=== PATIENT | female | born 1960 | race Caucasian/White ===

== ENCOUNTER 2022-01-02 10:45 | Inpatient (IN) | payer MEDICARE, MEDICAID, SELFPAY ==
[2022-01-02] VITALS (7 sets, daily range): BP systolic 100–118; BP diastolic 40–80; PULSE 67–97; RESP 16–23; TEMP 36.5–37.9; O2SAT 89–97; BMI 28.5
--- NOTE | 2022-01-02 | ECG_ITS ---
Test Reason : general medical Blood Pressure : / mmHG Vent. Rate : 073 BPM Atrial Rate : 073 BPM P-R Int : 138 ms QRS Dur : 076 ms QT Int : 390 ms P-R-T Axes : 018 048 035 degrees QTc Int : 429 ms Normal sinus rhythm Low voltage QRS Borderline ECG No previous ECGs available Referred By: Swapna Rene Electronically Signed By:Carrillo Bui
--- NOTE | ~2022-01-02 | XR_ITS ---
EXAMINATION: XR CHEST CLINICAL INFORMATION: Shortness of breath COMPARISON: None TECHNIQUE: Portable upright AP view of the chest was obtained. FINDINGS: Patient is slightly rotated to the left. There is no pneumothorax, pleural reaction, airspace consolidation, or effusion. Heart size normal. Vascularity within normal. There is probable disc atelectasis left lateral base. No acute bony abnormality. XR/XR chest 1V IMPRESSION: Unremarkable examination.
[2022-01-02 11:20] LABS: Basophils Percent Auto 0.1 % (0-2); PLT CLUMP 1; SCAN SMEAR FLAG 1
[2022-01-02 11:21] LABS: Eosinophils Percent Auto 0.4 % (0-4); Hematocrit 33.5 % (37.0-47.0); Hemoglobin 10.4 g/dl (12.0-16.0); Imm Gran Abs Auto 0.35 X10*3/uL (0.00-0.03); Imm Gran Pct Auto 4.9 % (0.0-0.4); Lymphocytes Absolute Auto 1.4 X10*3/uL (1.2-4.9); Lymphocytes Percent Auto 19.8 % (20-40); MANUAL DIFF FLAG SCAN; Mean Corpuscular Hemoglobin 30.9 pg (27.0-33.0); Mean Corpuscular Volume 99.4 fL (80.0-98.0); Monocytes Absolute Auto 0.8 X10*3/uL (0.1-1.2); Monocytes Percent Auto 11.7 % (2-11); Neutrophils Absolute Auto 4.5 x10*3/uL (2.0-8.3); Neutrophils Percent Auto 63.1 % (45-73); Red Blood Count 3.37 X10*6/uL (4.20-5.50); Red Cell Distribution Width 15.1 % (11.0-16.0)
[2022-01-02 11:26] LABS: White Blood Count 7.1 X10*3/uL (4.8-10.8)
[2022-01-02] MEDS: 0.9 % Sodium Chloride 1,000 ML 999 ML IVCONT ×2 (11:28→11:53)
[2022-01-02 11:38] LABS: B Type Natriuretic Peptide 44 pg/mL (<100); Troponin-I High Sensitivity 3.5 ng/L (<3.5-17.0)
[2022-01-02 11:43] LABS: Venous Blood Gas Refer to POC result
[2022-01-02 11:44] LABS: VBG Base Excess -3.6 mmol/L; VBG HCO3 19 mmol/L (22-26); VBG pCO2 27 mmHg; VBG pH 7.44 (7.32-7.43); VBG pO2 71 mmHg
[2022-01-02 11:47] LABS: Platelet Count 90 X10*3/uL (160-400); SLIDE REVIEW VERIFIED
[2022-01-02 11:52] LABS: Lactic Acid 0.6 mmol/L (0.5-2.0)
--- NOTE | 2022-01-02 11:52 | ED_ITS ---
HPI - General Adult General Chief complaint: General Medical Stated complaint: +COVID, LETHARGIC, 92% 4LPM PER EMS Time Seen by Provider: 01/02/22 11:20 Source: EMS Mode of arrival: EMS Limitations: other (Severe intellectual disability, lethargic) History of Present Illness HPI narrative: Patient comes to the emergency room via EMS from [facility]. This morning, patient was found to be lethargic, hypoxic, she was started on 6 L of oxygen via nasal cannula. Patient tested positive for COVID-19 today. Patient has severe intellectual disability and is lethargic and cannot provide any history. Per EMS, they did not receive enough information from the staff, unclear what patient's baseline is, other than patient is lethargic Related Data Allergies Allergy/AdvReac Type Severity Reaction Status Date / Time Unable to Assess Allergy Verified 01/02/22 11:20 Review of Systems Review of Systems: More lethargic, hypoxic Yes Unobtainable due to mental condition PMFSH Past Medical History Medical History Chronic kidney disease, stage 3 COVID Hx of alf use of blood thinners Hypertension Intellectual disability Pulmonary embolism Schizoaffective disorder Social History Social History Advance Directives: No Advance Directives Information Provided: No Physical Exam ED Vital Signs: Vital Signs - 24 hr 01/02/22 11:07 01/02/22 11:45 01/02/22 12:13 Temperature 100.2 F 99.5 F Pulse Rate 81 76 87 Respiratory Rate 23 H 20 21 H Blood Pressure 104/49 L 106/41 L Pulse Oximetry 95 89 L 95 Oxygen Delivery Method Nasal Cannula Nasal Cannula Nasal Cannula Oxygen Flow Rate 3 3 BMI result Body Mass Index 28.5 Const Other: Appearance: Somnolent, lethargic, arousable to verbal stimuli Eyes: Pupils equal, round and reactive to light. Bilateral conjunctivitis ENT: Pharynx normal. Neck: Normal inspection. Neck supple. No lymph nodes noted. No crepitus CVS: Normal heart rate and rhythm. Pulses normal. Normal S1 and S2 Respiratory: No respiratory distress. Breath sounds normal. No Wheezing. No rales . Oxygen saturation drops to 89% on 3 L Abdomen: Soft and nontender. No rigidity. No distention. Skin: Skin warm and dry. Normal skin color. Normal skin turgor. Extremities: No lower extremity edema. No Lacerations. No Rash Neuro: Somnolent, patient unable to participate in cranial nerve assessment Psych: Somnolent Course Course Course Narrative: Patient has a chronic Randall catheter, the urine looks turbid. Initial temp erature 100.2 degrees. Patient giving 2 L IV fluids based on ideal weight of 60 kg, patient is obese. Also, patient was started on Zosyn to cover for respiratory and urinary infections. All of patient's labs are and imaging are pending Patient came in at 6 L of oxygen on nasal cannula saturating in the high 90s, we attempted weaning the patient down to 3 L, oxygen saturation dropped to 89%. Patient does have a urinary tract infection as expected. Medical Decision Making Lab Data Result diagrams: 01/02/22 11:12 01/02/22 11:36 Labs: Lab Results 01/02/22 01/02/22 01/02/22 Range/Units 11:05 11:12 11:12 WBC 7.1 (4.8-10.8) X10*3/uL RBC 3.37 L (4.20-5.50) X10*6/uL Hgb 10.4 L (12.0-16.0) g/dl Hct 33.5 L (37.0-47.0) % MCV 99.4 H (80.0-98.0) fL MCH 30.9 (27.0-33.0) pg MCHC 31.0 (31.0-35.0) g/dl RDW 15.1 (11.0-16.0) % Plt Count 90 L (160-400) X10*3/uL MPV 11.0 (9.4-12.3) fL Immature Gran % (Auto) 4.9 H (0.0-0.4) % Neut % (Auto) 63.1 (45-73) % Lymph % (Auto) 19.8 L (20-40) % [place] % (Auto) 11.7 H (2-11) % Eos % (Auto) 0.4 (0-4) % Baso % (Auto) 0.1 (0-2) % Lymph # (Auto) 1.4 (1.2-4.9) X10*3/uL [place] # (Auto) 0.8 (0.1-1.2) X10*3/uL Eos # (Auto) 0.0 (0.0-0.4) X10*3/uL Baso # (Auto) 0.0 (0.0-0.2) X10*3/uL Abs Immat Gran (auto) 0.35 H (0.00-0.03) X10*3/uL Absolute Neuts (auto) 4.5 (2.0-8.3) x10*3/uL Absolute Nucleated RBC 0.000 (0.0-0.012) X10*3/uL Nucleated RBC % (auto) 0.0 (0.0-0.2) /100WBC Smear Tech's Comments VERIFIED VBG pH (7.32-7.43) VBG pCO2 mmHg VBG pO2 mmHg VBG HCO3 (22-26) mmol/L VBG O2 Saturation % VBG Base Excess mmol/L Sodium (135-145) mmol/L Potassium (3.3-5.1) mmol/L Chloride (96-108) mmol/L Carbon Dioxide (22-29) mmol/L Anion Gap (12-20) BUN (9-16) mg/dL Creatinine (0.5-1.4) mg/dL Estim Creat Clear Calc Estimated GFR POC Glucose 90 (60-115) mg/dL Random Glucose (60-115) mg/dL Lactic Acid (0.5-2.0) mmol/L Calcium (8.4-10.2) mg/dL Troponin I High Sens 3.5 (<3.5-17.0) ng/L B-Natriuretic Peptide 44 (<100) pg/mL TSH (0.32-4.0) uIU/mL Urine Color Urine Appearance Urine pH (5.0-8.0) Ur Specific [place] (1.005-1.025) Urine Protein (NEG-TRACE) MG/DL Urine Glucose (UA) (NEG) MG/DL Urine Ketones (NEG) MG/DL Urine Blood (NEG) Urine Nitrite (NEG) Ur Leukocyte Esterase (NEG) Urine RBC (0) /HPF Urine WBC (0-4) /HPF Ur Squamous Epith Cells /LPF Triple Phos Crystals /LPF Urine Bacteria /LPF COVID-19 (PADMA) (Negative) COVID-19 Clin Com 01/02/22 01/02/22 01/02/22 Range/Units 11:36 11:36 11:36 WBC (4.8-10.8) X10*3/uL RBC (4.20-5.50) X10*6/uL Hgb (12.0-16.0) g/dl Hct (37.0-47.0) % MCV (80.0-98.0) fL MCH (27.0-33.0) pg MCHC (31.0-35.0) g/dl RDW (11.0-16.0) % Plt Count (160-400) X10*3/uL MPV (9.4-12.3) fL Immature Gran % (Auto) (0.0-0.4) % Neut % (Auto) (45-73) % Lymph % (Auto) (20-40) % [place] % (Auto) (2-11) % Eos % (Auto) (0-4) % Baso % (Auto) (0-2) % Lymph # (Auto) (1.2-4.9) X10*3/uL [place] # (Auto) (0.1-1.2) X10*3/uL Eos # (Auto) (0.0-0.4) X10*3/uL Baso # (Auto) (0.0-0.2) X10*3/uL Abs Immat Gran (auto) (0.00-0.03) X10*3/uL Absolute Neuts (auto) (2.0-8.3) x10*3/uL Absolute Nucleated RBC (0.0-0.012) X10*3/uL Nucleated RBC % (auto) (0.0-0.2) /100WBC Smear Tech's Comments VBG pH (7.32-7.43) VBG pCO2 mmHg VBG pO2 mmHg VBG HCO3 (22-26) mmol/L VBG O2 Saturation % VBG Base Excess mmol/L Sodium 140 (135-145) mmol/L Potassium 4.9 (3.3-5.1) mmol/L Chloride 103 (96-108) mmol/L Carbon Dioxide 28 (22-29) mmol/L Anion Gap 14 (12-20) BUN 19 H (9-16) mg/dL Creatinine 1.55 H (0.5-1.4) mg/dL Estim Creat Clear Calc 42.9 Estimated GFR 34 POC Glucose (60-115) mg/dL Random Glucose 96 (60-115) mg/dL Lactic Acid 0.6 (0.5-2.0) mmol/L Calcium 9.2 (8.4-10.2) mg/dL Troponin I High Sens (<3.5-17.0) ng/L B-Natriuretic Peptide (<100) pg/mL TSH 1.77 (0.32-4.0) uIU/mL Urine Color Urine Appearance Urine pH (5.0-8.0) Ur Specific [place] (1.005-1.025) Urine Protein (NEG-TRACE) MG/DL Urine Glucose (UA) (NEG) MG/DL Urine Ketones (NEG) MG/DL Urine Blood (NEG) Urine Nitrite (NEG) Ur Leukocyte Esterase (NEG) Urine RBC (0) /HPF Urine WBC (0-4) /HPF Ur Squamous Epith Cells /LPF Triple Phos Crystals /LPF Urine Bacteria /LPF COVID-19 (PADMA) Positive A (Negative) COVID-19 Clin Com See Note 01/02/22 01/02/22 Range/Units 11:39 12:08 WBC (4.8-10.8) X10*3/uL RBC (4.20-5.50) X10*6/uL Hgb (12.0-16.0) g/dl Hct (37.0-47.0) % MCV (80.0-98.0) fL MCH (27.0-33.0) pg MCHC (31.0-35.0) g/dl RDW (11.0-16.0) % Plt Count (160-400) X10*3/uL MPV (9.4-12.3) fL Immature Gran % (Auto) (0.0-0.4) % Neut % (Auto) (45-73) % Lymph % (Auto) (20-40) % [place] % (Auto) (2-11) % Eos % (Auto) (0-4) % Baso % (Auto) (0-2) % Lymph # (Auto) (1.2-4.9) X10*3/uL [place] # (Auto) (0.1-1.2) X10*3/uL Eos # (Auto) (0.0-0.4) X10*3/uL Baso # (Auto) (0.0-0.2) X10*3/uL Abs Immat Gran (auto) (0.00-0.03) X10*3/uL Absolute Neuts (auto) (2.0-8.3) x10*3/uL Absolute Nucleated RBC (0.0-0.012) X10*3/uL Nucleated RBC % (auto) (0.0-0.2) /100WBC Smear Tech's Comments VBG pH 7.44 H (7.32-7.43) VBG pCO2 27 mmHg VBG pO2 71 mmHg VBG HCO3 19 L (22-26) mmol/L VBG O2 Saturation 93.0 % VBG Base Excess -3.6 mmol/L Sodium (135-145) mmol/L Potassium (3.3-5.1) mmol/L Chloride (96-108) mmol/L Carbon Dioxide (22-29) mmol/L Anion Gap (12-20) BUN (9-16) mg/dL Creatinine (0.5-1.4) mg/dL Estim Creat Clear Calc Estimated GFR POC Glucose (60-115) mg/dL Random Glucose (60-115) mg/dL Lactic Acid (0.5-2.0) mmol/L Calcium (8.4-10.2) mg/dL Troponin I High Sens (<3.5-17.0) ng/L B-Natriuretic Peptide (<100) pg/mL TSH (0.32-4.0) uIU/mL Urine Color YELLOW Urine Appearance CLOUDY Urine pH 8.0 (5.0-8.0) Ur Specific [place] 1.015 (1.005-1.025) Urine Protein 2+ H (NEG-TRACE) MG/DL Urine Glucose (UA) NEG (NEG) MG/DL Urine Ketones NEG (NEG) MG/DL Urine Blood 3+ H (NEG) Urine Nitrite POS H (NEG) Ur Leukocyte Esterase 3+ H (NEG) Urine RBC 50-75 H (0) /HPF Urine WBC 50-75 H (0-4) /HPF Ur Squamous Epith Cells NONE /LPF Triple Phos Crystals TRACE /LPF Urine Bacteria 4+ /LPF COVID-19 (PADMA) (Negative) COVID-19 Clin Com Discharge Plan Discharge Clinical Impression: COVID, UTI (urinary tract infection), Encephalopathy Patient Disposition: Admitted As Inpatient
[2022-01-02 11:57] LABS: COVID-19 Test Positive (Negative); IDNOW Serial# 55D5AD1C
[2022-01-02 12:06] LABS: Anion Gap 14 (12-20); Blood Urea Nitrogen 19 mg/dL (9-16); Calcium 9.2 mg/dL (8.4-10.2); Carbon Dioxide 28 mmol/L (22-29); Chloride 103 mmol/L (96-108); Creatinine Clr Calc Pharmacy 42.9; Estimated Glomerular Filt Rate 34; Glucose Random 96 mg/dL (60-115); Potassium 4.9 mmol/L (3.3-5.1); Sodium 140 mmol/L (135-145)
[2022-01-02 12:18] LABS: Appearance Urine CLOUDY; Color Urine YELLOW; Glucose Urine UA NEG (NEG); Leukocyte Esterase Urine 3+ (NEG); Nitrite Urine POS (NEG); Specific Gravity - Urine 1.015 (1.005-1.025); UACC Culture Trigger YES; Urine Blood 3+ (NEG); Urine Ketones NEG (NEG); Urine Protein 2+ MG/DL (NEG-TRACE)
[2022-01-02 12:30] LABS: Bacteria Urine 4+ /LPF; RBC Urine 50-75 /HPF (0); Triple Phosphate Crystal Urine TRACE /LPF; WBC Urine 50-75 /HPF (0-4)
[2022-01-02 12:43] LABS: TSH reflex Free T4 1.77 uIU/mL (0.32-4.0)
[2022-01-02 13:00] LABS: Glucose, Whole Blood 90 mg/dL (60-115)
[2022-01-02] MEDS: levoFLOXacin/D5W 500 MG/100 ML PIGGYBACK 100 MG IV (13:10)
[2022-01-02] MEDS: Erythromycin Base 0.5% Oph Oin 1 GM TUBE 1 CM EYE-BOTH (13:11)
--- NOTE | 2022-01-02 14:05 | PHA.MEDREC ---
Pharmacy Consult ? Medication Reconciliation Pharmacy has completed the medication reconciliation. Received list from [facility]. Jo Ann Almeida, JannetteD
[2022-01-02 15:11] LABS: Alanine Aminotransferase 7 U/L (0-31); Albumin Level 3.6 g/dL (3.5-5.0); Alkaline Phosphatase 54 U/L (39-117); Aspartate Amino Transferase 18 U/L (5-31); Bilirubin Direct < 0.2 mg/dL (0.0-0.5); Bilirubin Total 0.2 mg/dL (0.0-1.0); C Reactive Protein 7.37 mg/dL (< or = 0.50); Lactate Dehydrogenase 235 U/L (122-220); Total Protein 6.5 g/dL (6.5-8.0)
[2022-01-02] MEDS: cefTRIAXone sodium 1 GM in 0.9 % Sodium Chloride 50 ML IV (15:28)
[2022-01-02] MEDS: QUEtiapine Fumarate 50 MG TABLET PO ×2 (15:28→22:27)
[2022-01-02] MEDS: dexAMETHasone sod phosphate 4 MG/ML VIAL 6 MG IVPUSH (15:28)
[2022-01-02 15:31] LABS: Ferritin 67 ng/mL (10-250)
[2022-01-02 15:33] LABS: Procalcitonin 0.05 ng/mL
--- NOTE | 2022-01-02 15:38 | PM.IMHP ---
History of Present Illness Date of Service: 01/02/22 Chief Complaint: hypoxia History obtained from the field operations manager at [facility], as the patient is unable to give a history due to her mental status. 61yo F with severe intellectual disability, schizoaffective disorder, CKD3 (SCr 1.57 (05/13/21), hypothyroidism, HLD, frequent UTIs, dysphagia, and history of PE currently anticoagulated on apixaban who developed cough and dyspnea yesterday and today became lethargic and was found to be hypoxic. She was placed on 6L O2 via NC and sent to the ED, where she tested positive for Covid-19. She had the primary Pfizer mRNA vaccine series in June 2020, followed by a booster on 10/27/21. Currently, there are 8 patients at [facility] with Covid-19 infection. She had a low-grade temperature elevation to 100.2 and was tachypneic with RR of 23. SaO2 was 89 on room air and she was placed on 2L O2 via NC. Platelet count was 90. Creatinine 1.55. CRP 7.37. She has nitrituria and pyuria. CXR no acute disease. 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 Hypertension Intellectual disability Pulmonary embolism Schizoaffective disorder Pertinent family history: unable to obtain due to patient's mental status Social History Advance Directives: No Advance Directives Information Provided: No Meds Allergies Allergy/AdvReac Type Severity Reaction Status Date / Time Unable to Assess Allergy Verified 01/02/22 11:20 Active Medications: Current Medications Apixaban (Apixaban 2.5 Mg Tablet) 2.5 mg PO BID [facility] Atorvastatin Calcium (Atorvastatin Calcium 10 Mg Tablet) 10 mg PO BEDTIME DEJUAN Dexamethasone Sodium Phosphate (Dexamethasone Sod Phosphate 4 Mg/Ml Vial) 6 mg IVPUSH DAILY [facility] Last Admin: 01/02/22 15:28 Dose: 6 mg Divalproex Sodium (Divalproex Sodium Sprinkles 125 Mg ) 1,000 mg PO BID [facility] Ceftriaxone Sodium 1 gm/ (Sodium Chloride) 50 mls @ 100 mls/hr IV Q24H [facility] Stop: 01/08/22 16:29 Last Admin: 01/02/22 15:28 Dose: 100 mls/hr Lactulose (Lactulose 20 Gm/30 Ml Solution) 20 gm PO BID [facility] Levothyroxine Sodium (Levothyroxine Sodium 100 Mcg Tablet) 100 mcg PO DAILY@0630 [facility] Mirtazapine (Mirtazapine 7.5 Mg Tablet) 7.5 mg PO BEDTIME [facility] Pharmacy Consult (Consult Rx Perform Med Rec) 1 each MISCELLANE ONCE PRN PRN Reason: Consult order Quetiapine Fumarate (Quetiapine Fumarate 50 Mg Tablet) 50 mg PO TID [facility] Last Admin: 01/02/22 15:28 Dose: 50 mg Trazodone HCl (Trazodone Hcl 100 Mg Tablet) 200 mg PO BID [facility] Home Medications Medication Instructions Recorded Confirmed Last Taken Type acetaminophen 500 mg tablet 1,000 mg PO TID 01/02/22 01/02/22 Unknown History apixaban 2.5 mg tablet (Eliquis) 2.5 mg PO BID 01/02/22 01/02/22 Unknown History atorvastatin 10 mg tablet 10 mg PO BEDTIME 01/02/22 01/02/22 Unknown History divalproex 125 mg capsule,delayed 1,000 mg PO BID 01/02/22 01/02/22 Unknown History release sprinkle lactulose 10 gram/15 mL oral 20 g PO BID 01/02/22 01/02/22 Unknown History solution (Enulose) levothyroxine 100 mcg capsule 100 mcg PO DAILY 01/02/22 01/02/22 Unknown History methenamine hippurate 1 gram tablet 1 g PO BID 01/02/22 01/02/22 Unknown History mirtazapine 7.5 mg tablet 7.5 mg PO BEDTIME 01/02/22 01/02/22 Unknown History quetiapine 50 mg tablet 50 mg PO TID 01/02/22 01/02/22 Unknown History trazodone 100 mg tablet 200 mg PO BID 01/02/22 01/02/22 Unknown History Physical Exam Vital Signs and Narrative: Vital Signs: Last Vital Signs Temp 97.7 F 01/02/22 14:56 Pulse 75 01/02/22 14:56 Resp 19 01/02/22 14:56 BP 101/68 01/02/22 14:56 Pulse Ox 92 01/02/22 14:56 O2 Del Method 01/02/22 14:56 O2 Flow Rate 3 01/02/22 12:13 Oxygen Flow Rate 4 01/02/22 11:07 BMI result Body Mass Index 28.5 Gen: short of breath, able to answer what her name is but otherwise speech is unintelligible HEENT: sclera anicteric, moist mucus membranes Neck: supple Lungs: clear to auscultation bilaterally Heart: regular rate and rhythm, no murmurs Abd: soft, non-tender, non-distended : no CVA tenderness Ext: no edema Skin: warm/well-perfused Neuro: alert, oriented to self only, moving all extremities Psych: impaired insight Results Labs CBC and Chem 7: 01/02/22 11:12 01/02/22 11:36 Labs: Laboratory Results - last 24 hr 01/02/22 01/02/22 01/02/22 11:05 11:12 11:12 MCV 99.4 H MCH 30.9 MCHC 31.0 RDW 15.1 Plt Count 90 L MPV 11.0 Immature Gran % (Auto) 4.9 H Neut % (Auto) 63.1 Lymph % (Auto) 19.8 L [place] % (Auto) 11.7 H Eos % (Auto) 0.4 Baso % (Auto) 0.1 Lymph # (Auto) 1.4 [place] # (Auto) 0.8 Eos # (Auto) 0.0 Baso # (Auto) 0.0 Abs Immat Gran (auto) 0.35 H Absolute Neuts (auto) 4.5 Absolute Nucleated RBC 0.000 Nucleated RBC % (auto) 0.0 Smear Tech's Comments VERIFIED VBG pH VBG pCO2 VBG pO2 VBG HCO3 VBG O2 Saturation VBG Base Excess Anion Gap Estim Creat Clear Calc Estimated GFR POC Glucose 90 Random Glucose Lactic Acid Calcium Ferritin Total Bilirubin Direct Bilirubin AST ALT Alkaline Phosphatase Lactate Dehydrogenase Troponin I High Sens 3.5 C-Reactive Protein B-Natriuretic Peptide 44 Total Protein Albumin Procalcitonin TSH Urine Color Urine Appearance Urine pH Ur Specific [place] Urine Protein Urine Glucose (UA) Urine Ketones Urine Blood Urine Nitrite Ur Leukocyte Esterase Urine RBC Urine WBC Ur Squamous Epith Cells Triple Phos Crystals Urine Bacteria COVID-19 (PADMA) COVID-19 Clin Com 01/02/22 01/02/22 01/02/22 11:36 11:36 11:36 MCV MCH MCHC RDW Plt Count MPV Immature Gran % (Auto) Neut % (Auto) Lymph % (Auto) [place] % (Auto) Eos % (Auto) Baso % (Auto) Lymph # (Auto) [place] # (Auto) Eos # (Auto) Baso # (Auto) Abs Immat Gran (auto) Absolute Neuts (auto) Absolute Nucleated RBC Nucleated RBC % (auto) Smear Tech's Comments VBG pH VBG pCO2 VBG pO2 VBG HCO3 VBG O2 Saturation VBG Base Excess Anion Gap 14 Estim Creat Clear Calc 42.9 Estimated GFR 34 POC Glucose Random Glucose 96 Lactic Acid 0.6 Calcium 9.2 Ferritin 67 Total Bilirubin 0.2 Direct Bilirubin < 0.2 AST 18 ALT 7 Alkaline Phosphatase 54 Lactate Dehydrogenase 235 H Troponin I High Sens C-Reactive Protein 7.37 H B-Natriuretic Peptide Total Protein 6.5 Albumin 3.6 Procalcitonin TSH 1.77 Urine Color Urine Appearance Urine pH Ur Specific [place] Urine Protein Urine Glucose (UA) Urine Ketones Urine Blood Urine Nitrite Ur Leukocyte Esterase Urine RBC Urine WBC Ur Squamous Epith Cells Triple Phos Crystals Urine Bacteria COVID-19 (PADMA) Positive A COVID-19 Clin Com See Note 01/02/22 01/02/22 01/02/22 11:36 11:39 12:08 MCV MCH MCHC RDW Plt Count MPV Immature Gran % (Auto) Neut % (Auto) Lymph % (Auto) [place] % (Auto) Eos % (Auto) Baso % (Auto) Lymph # (Auto) [place] # (Auto) Eos # (Auto) Baso # (Auto) Abs Immat Gran (auto) Absolute Neuts (auto) Absolute Nucleated RBC Nucleated RBC % (auto) Smear Tech's Comments VBG pH 7.44 H VBG pCO2 27 VBG pO2 71 VBG HCO3 19 L VBG O2 Saturation 93.0 VBG Base Excess -3.6 Anion Gap Estim Creat Clear Calc Estimated GFR POC Glucose Random Glucose Lactic Acid Calcium Ferritin Total Bilirubin Direct Bilirubin AST ALT Alkaline Phosphatase Lactate Dehydrogenase Troponin I High Sens C-Reactive Protein B-Natriuretic Peptide Total Protein Albumin Procalcitonin 0.05 TSH Urine Color YELLOW Urine Appearance CLOUDY Urine pH 8.0 Ur Specific [place] 1.015 Urine Protein 2+ H Urine Glucose (UA) NEG Urine Ketones NEG Urine Blood 3+ H Urine Nitrite POS H Ur Leukocyte Esterase 3+ H Urine RBC 50-75 H Urine WBC 50-75 H Ur Squamous Epith Cells NONE Triple Phos Crystals TRACE Urine Bacteria 4+ COVID-19 (PADMA) COVID-19 Clin Com Imaging Radiologist's Impressions: Impressions Chest X-Ray 01/02/22 11:52 IMPRESSION: Unremarkable examination. Assessment and Plan (1) UTI (urinary tract infection): Status: Acute (2) COVID: Status: Acute Plan 61yo F with severe intellectual disability, schizoaffective disorder, CKD3 (SCr 1.57 (05/13/21), hypothyroidism, HLD, frequent UTIs, dysphagia, and history of PE currently anticoagulated on apixaban presenting with 1 day of dyspnea and cough, lethargic and hypoxic this morning, found to have Covid-19 infection and UTI. # severe Covid-19 disease - admit to [facility] on isolation, give remdesivir x5d, give dexamethasone 6 mg/d x 10d, trend inflammatory markers, consult ID # acute hypoxic respiratory failure - supplemental O2 to wean as tolerated # UTI - ceftriaxone IV x7d, follow UCx # toxic/metabolic encephalopathy - due to hypoxia/Covid-19 + infection, treat as above CHRONIC CONDITIONS: # CKD3: SCr at baseline, avoid nephrotoxins # hx PE: continue apixaban # HLD: continue atorvastatin # schizoaffective: continue divalproex, mirtazapine, quetiapine, and trazodone # dysphagia: NDD1 [pureed] solids, thin liquids, 1:1 for all feeds, meds crushed in puree VTE prophylaxis: apixaban code status: full I anticipate that the patient will stay at least 2 midnights in hospital due to the above reasons. It is neither reasonable nor safe to care for them in a less acute setting. Quality Stroke Does the patient have a stroke diagnosis?: No VTE Prior VTE?: No VTE Risk Level:: Medical - moderate - high VTE Device Contraindication: N/A - Device Ordered VTE Drug Contraindication: N/A - Med Ordered
[2022-01-02 16:30] LABS: D Dimer High Sensitivity 168 NG/ML
[2022-01-02 16:40] LABS: Anion Gap 9 (12-20); Blood Urea Nitrogen 18 mg/dL (9-16); Calcium 8.7 mg/dL (8.4-10.2); Carbon Dioxide 30 mmol/L (22-29); Chloride 106 mmol/L (96-108); Creatinine Clr Calc Pharmacy 48.6; Estimated Glomerular Filt Rate 39; Glucose Random 87 mg/dL (60-115); Potassium 4.7 mmol/L (3.3-5.1); Sodium 140 mmol/L (135-145)
[2022-01-02] MEDS: Remdesivir 200 MG in 0.9 % Sodium Chloride 210 ML 105 MG IV (17:29)
[2022-01-02] MEDS: Mirtazapine 7.5 MG TABLET PO (22:27)
[2022-01-02] MEDS: Atorvastatin Calcium 10 MG TABLET PO (22:27)
[2022-01-02] MEDS: traZODone HCL 100 MG TABLET 200 MG PO (22:27)
[2022-01-02] MEDS: Apixaban 2.5 MG TABLET PO (22:27)
[2022-01-02] MEDS: Lactulose 20 GM/30 ML SOLUTION PO (22:28)
[2022-01-02] MEDS: Divalproex Sodium Sprinkles 125 MG CAP.DR.SPR 1000 MG PO (22:43)
[2022-01-03] VITALS (7 sets, daily range): BP systolic 93–165; BP diastolic 48–88; PULSE 60–80; RESP 16–21; TEMP 36.1–36.6; O2SAT 93–100
[2022-01-03] MEDS: 0.9 % Sodium Chloride Flush 3 ML SYRINGE IVFLUSH ×3 (03:25→16:55)
--- NOTE | 2022-01-03 04:21 | PC.NURSE ---
PATIENT WAS REPOSITION SEVERAL TIMES THROUGHOUT THE NIGHT ,PATIENT WAS AWAKE ALL NIGHT TALKING TO SELF
[2022-01-03] MEDS: Levothyroxine Sodium 100 MCG TABLET PO (06:50)
[2022-01-03 07:12] LABS: Glucose, Whole Blood 77 mg/dL (60-115)
[2022-01-03] MEDS: Lactulose 20 GM/30 ML SOLUTION PO ×2 (07:58→21:01)
[2022-01-03] MEDS: dexAMETHasone sod phosphate 4 MG/ML VIAL 6 MG IVPUSH (07:59)
[2022-01-03] MEDS: traZODone HCL 100 MG TABLET 200 MG PO ×2 (07:59→20:56)
[2022-01-03] MEDS: QUEtiapine Fumarate 50 MG TABLET PO ×3 (07:59→20:57)
[2022-01-03] MEDS: Apixaban 2.5 MG TABLET PO ×2 (07:59→20:57)
[2022-01-03] MEDS: Divalproex Sodium Sprinkles 125 MG CAP.DR.SPR 1000 MG PO ×2 (07:59→20:58)
--- NOTE | 2022-01-03 10:35 | PC.NURSE ---
call to phlebotomy re: labs due from 0600 on 01/03
--- NOTE | 2022-01-03 13:29 | P.CDIC_ITS ---
CDI Concurrent Query Documentation Clarification: PHYSICIAN'S DOCUMENTATION REQUEST Date of Query: 01/03/22 1325 Patient Name: Terri Vaughn Admit Date: 01/02/22 Dear Doctor, A review of the medical record indicates additional documentation may be needed. Please review below and update the documentation accordingly. Clinical Indicators: Documentation includes the conditions of chronic cantu catheter and UTI. Additional clinical indicators in the record include: Risk Factors/Clinical Indicators/Treatments Per MD progress note 01/02/22: Patient has a chronic Cantu catheter, the urine looks turbid.? Per H&P 01/02/22: UTI IV Ceftriaxone Please clarify the relationship between these conditions: * Yes, UTI is related to / associated with / due to Cantu catheter * No, UTI is not related to / associated with / due to Cantu catheter * Other * Unable to determine Use of terms such as suspected, likely, concern for, or probable (associated with a specific diagnosis that is being evaluated, monitored, or treated as if it exists) are acceptable and can be coded in the inpatient setting, when documented at the time of discharge. Thank you, Daisy Duenas RN Extension: [phone] Please use your independent medical judgment in providing your response. THIS QUERY IS PART OF THE PERMANENT MEDICAL RECORD Provider Response: Other Other Diagnosis: cath-assoc uti
--- NOTE | 2022-01-03 13:35 | MHC.CM.PN ---
pt from [facility] is on a bed hold phone call made to adeola rivera [phone]/message left
--- NOTE | 2022-01-03 13:48 | HO.PM.IMPN ---
Subjective Subjective Date of Service: 01/03/22 Interval History: coughing still on 2L O2 unable to obtain ROS due to mental status Review of Systems Review of Systems: Yes Unobtainable due to mental status Physical Exam Vital Signs: Vital Signs: Last Vital Signs Temp 97.8 F 01/03/22 01:02 Pulse 78 01/03/22 08:05 Resp 18 01/03/22 08:05 BP 108/48 L 01/03/22 08:05 Pulse Ox 98 01/03/22 08:05 O2 Del Method 01/03/22 08:05 O2 Flow Rate 2 01/03/22 08:05 Oxygen Flow Rate 4 01/02/22 11:07 BMI result Body Mass Index 28.5 Gen: mod resp distress HEENT: sclera anicteric, moist mucus membranes Neck: supple Lungs: clear to auscultation bilaterally Heart: regular rate and rhythm, no murmurs Abd: soft, non-tender, non-distended : no CVA tenderness, Randall with turbid urine Ext: no edema Skin: warm/well-perfused Neuro: alert, oriented to self only, moving all extremities Psych: impaired insight Objective Data Active Medications Acetaminophen (Acetaminophen 325 Mg Tablet) 650 mg PO Q6H PRN PRN Reason: Pain, Mild (Pain Scale 1-3) Apixaban (Apixaban 2.5 Mg Tablet) 2.5 mg PO BID [facility] Last Admin: 01/03/22 07:59 Dose: 2.5 mg Documented By: DAYNA Atorvastatin Calcium (Atorvastatin Calcium 10 Mg Tablet) 10 mg PO BEDTIME [facility] Last Admin: 01/02/22 22:27 Dose: 10 mg Documented By: CELY Dexamethasone Sodium Phosphate (Dexamethasone Sod Phosphate 4 Mg/Ml Vial) 6 mg IVPUSH DAILY [facility] Last Admin: 01/03/22 07:59 Dose: 6 mg Documented By: DAYNA Divalproex Sodium (Divalproex Sodium Sprinkles 125 Mg ) 1,000 mg PO BID [facility] Last Admin: 01/03/22 07:59 Dose: 1,000 mg Documented By: DAYNA Ceftriaxone Sodium 1 gm/ (Sodium Chloride) 50 mls @ 100 mls/hr IV Q24H [facility] Stop: 01/08/22 16:29 Last Infusion: 01/02/22 15:58 Dose: 0 mls/hr Documented By: BRYN Remdesivir 100 mg/ Sodium (Chloride) 230 mls @ 115 mls/hr IV Q24H [facility] Stop: 01/06/22 18:59 Lactulose (Lactulose 20 Gm/30 Ml Solution) 20 gm PO BID [facility] Last Admin: 01/03/22 07:58 Dose: 20 gm Documented By: DAYNA Levothyroxine Sodium (Levothyroxine Sodium 100 Mcg Tablet) 100 mcg PO DAILY@0630 [facility] Last Admin: 01/03/22 06:50 Dose: 100 mcg Documented By: CELY Mirtazapine (Mirtazapine 7.5 Mg Tablet) 7.5 mg PO BEDTIME [facility] Last Admin: 01/02/22 22:27 Dose: 7.5 mg Documented By: CELY Ondansetron HCl (Ondansetron Hcl 4 Mg/2 Ml Vial) 4 mg IVPUSH Q8H PRN PRN Reason: Nausea and Vomiting Pharmacy Consult (Consult Rx Perform Med Rec) 1 each MISCELLANE ONCE PRN PRN Reason: Consult order Quetiapine Fumarate (Quetiapine Fumarate 50 Mg Tablet) 50 mg PO TID [facility] Last Admin: 01/03/22 07:59 Dose: 50 mg Documented By: DAYNA Sodium Chloride (0.9 % Sodium Chloride Flush 3 Ml Syringe) 3 ml IVFLUSH QSHIFT [facility] Last Admin: 01/03/22 07:58 Dose: 3 ml Documented By: DAYNA Trazodone HCl (Trazodone Hcl 100 Mg Tablet) 200 mg PO BID [facility] Last Admin: 01/03/22 07:59 Dose: 200 mg Documented By: DAYNA Labs CBC & Chem 7: 01/02/22 11:12 01/02/22 16:01 Labs: Laboratory Results - last 24 hr 01/02/22 01/02/22 01/02/22 11:36 11:36 16:01 D-Dimer High Sensitivty Anion Gap 9 L Estim Creat Clear Calc 48.6 Estimated GFR 39 POC Glucose Random Glucose 87 Calcium 8.7 Ferritin 67 Total Bilirubin 0.2 Direct Bilirubin < 0.2 AST 18 ALT 7 Alkaline Phosphatase 54 Lactate Dehydrogenase 235 H C-Reactive Protein 7.37 H Total Protein 6.5 Albumin 3.6 Procalcitonin 0.05 01/02/22 01/03/22 16:01 07:08 D-Dimer High Sensitivty 168 Anion Gap Estim Creat Clear Calc Estimated GFR POC Glucose 77 Random Glucose Calcium Ferritin Total Bilirubin Direct Bilirubin AST ALT Alkaline Phosphatase Lactate Dehydrogenase C-Reactive Protein Total Protein Albumin Procalcitonin Microbiology Microbiology Results: Microbiology 01/02/22 Unknown Urine Culture - Final Urine Catheterized - Straight Catheter Assessment and Plan (1) UTI (urinary tract infection): Status: Acute (2) Encephalopathy: Status: Acute (3) COVID: Status: Acute Plan hospital d#2 61yo F with severe intellectual disability, schizoaffective disorder, CKD3 (SCr 1.57 (05/13/21), hypothyroidism, HLD, frequent UTIs, dysphagia, and history of PE currently anticoagulated on apixaban presenting with 1 day of dyspnea and cough, lethargic and hypoxic this morning, found to have Covid-19 infection and UTI. # severe Covid-19 disease - isolation, remdesivir d#2, dexamethasone d#07/28, trend inflammatory markers, consult ID # acute hypoxic respiratory failure - supplemental O2 to wean as tolerated # UTI, catheter-assoc - ceftriaxone d#07/25, follow UCx # toxic/metabolic encephalopathy - due to hypoxia/Covid-19 + infection, treat as above CHRONIC CONDITIONS: # CKD3: SCr at baseline, avoid nephrotoxins # hx PE: continue apixaban # HLD: continue atorvastatin # schizoaffective: continue divalproex, mirtazapine, quetiapine, and trazodone # dysphagia: NDD1 [pureed] solids, thin liquids, 1:1 for all feeds, meds crushed in puree # VTE prophylaxis: apixaban In my clinical judgment, the patient requires continued hospitalization for the following reasons: hypoxia Quality Stroke Does the patient have a stroke diagnosis?: No VTE Prior VTE?: No VTE Risk Level:: Medical - moderate - high VTE Device Contraindication: N/A - Device Ordered VTE Drug Contraindication: N/A - Med Ordered
--- NOTE | 2022-01-03 14:24 | PC.NURSE ---
pt ate entire lunch with pct. pt was cooperative.
--- NOTE | 2022-01-03 15:31 | W.PM.IDCN ---
History of Present Illness Data of Consult Service Date: 01/03/22 Requesting physician: Isidra Gee Primary Care Provider: Ondina Sewell MD HPI Reason for consult: sepsis,COVID She presents from [facility] with hypoxia to 92 and chills. 8 residents have COVID. She has received two primary series and a booster this spring. Review of Systems Review of Systems: Yes Unobtainable due to mental status PMFSH Past Medical History Medical History Chronic kidney disease, stage 3 COVID Hx of [facility] use of blood thinners Hypertension Intellectual disability Pulmonary embolism Schizoaffective disorder Family History Family history: reviewed and not pertinent Social History Social History Advance Directives: No Advance Directives Information Provided: No service: No Meds Allergies Allergy/AdvReac Type Severity Reaction Status Date / Time Unable to Assess Allergy Verified 01/02/22 11:20 Active Medications: Current Medications Acetaminophen (Acetaminophen 325 Mg Tablet) 650 mg PO Q6H PRN PRN Reason: Pain, Mild (Pain Scale 1-3) Apixaban (Apixaban 2.5 Mg Tablet) 2.5 mg PO BID [facility] Last Admin: 01/03/22 07:59 Dose: 2.5 mg Atorvastatin Calcium (Atorvastatin Calcium 10 Mg Tablet) 10 mg PO BEDTIME [facility] Last Admin: 01/02/22 22:27 Dose: 10 mg Dexamethasone Sodium Phosphate (Dexamethasone Sod Phosphate 4 Mg/Ml Vial) 6 mg IVPUSH DAILY [facility] Last Admin: 01/03/22 07:59 Dose: 6 mg Divalproex Sodium (Divalproex Sodium Sprinkles 125 Mg ) 1,000 mg PO BID [facility] Last Admin: 01/03/22 07:59 Dose: 1,000 mg Ceftriaxone Sodium 1 gm/ (Sodium Chloride) 50 mls @ 100 mls/hr IV Q24H [facility] Stop: 01/08/22 16:29 Last Infusion: 01/02/22 15:58 Dose: Infused Remdesivir 100 mg/ Sodium (Chloride) 230 mls @ 115 mls/hr IV Q24H [facility] Stop: 01/06/22 18:59 Lactulose (Lactulose 20 Gm/30 Ml Solution) 20 gm PO BID [facility] Last Admin: 01/03/22 07:58 Dose: 20 gm Levothyroxine Sodium (Levothyroxine Sodium 100 Mcg Tablet) 100 mcg PO DAILY@0630 [facility] Last Admin: 01/03/22 06:50 Dose: 100 mcg Mirtazapine (Mirtazapine 7.5 Mg Tablet) 7.5 mg PO BEDTIME [facility] Last Admin: 01/02/22 22:27 Dose: 7.5 mg Ondansetron HCl (Ondansetron Hcl 4 Mg/2 Ml Vial) 4 mg IVPUSH Q8H PRN PRN Reason: Nausea and Vomiting Pharmacy Consult (Consult Rx Perform Med Rec) 1 each MISCELLANE ONCE PRN PRN Reason: Consult order Quetiapine Fumarate (Quetiapine Fumarate 50 Mg Tablet) 50 mg PO TID [facility] Last Admin: 01/03/22 07:59 Dose: 50 mg Sodium Chloride (0.9 % Sodium Chloride Flush 3 Ml Syringe) 3 ml IVFLUSH QSHIFT [facility] Last Admin: 01/03/22 07:58 Dose: 3 ml Trazodone HCl (Trazodone Hcl 100 Mg Tablet) 200 mg PO BID [facility] Last Admin: 01/03/22 07:59 Dose: 200 mg Home Medications Medication Instructions Recorded Confirmed Last Taken Type acetaminophen 500 mg tablet 1,000 mg PO TID 01/02/22 01/02/22 Unknown History apixaban 2.5 mg tablet (Eliquis) 2.5 mg PO BID 01/02/22 01/02/22 Unknown History atorvastatin 10 mg tablet 10 mg PO BEDTIME 01/02/22 01/02/22 Unknown History divalproex 125 mg capsule,delayed 1,000 mg PO BID 01/02/22 01/02/22 Unknown History release sprinkle lactulose 10 gram/15 mL oral 20 g PO BID 01/02/22 01/02/22 Unknown History solution (Enulose) levothyroxine 100 mcg capsule 100 mcg PO DAILY 01/02/22 01/02/22 Unknown History methenamine hippurate 1 gram tablet 1 g PO BID 01/02/22 01/02/22 Unknown History mirtazapine 7.5 mg tablet 7.5 mg PO BEDTIME 01/02/22 01/02/22 Unknown History quetiapine 50 mg tablet 50 mg PO TID 01/02/22 01/02/22 Unknown History trazodone 100 mg tablet 200 mg PO BID 01/02/22 01/02/22 Unknown History Physical Exam Vital Signs: Vital Signs: Last Vital Signs Temp 97.8 F 01/03/22 01:02 Pulse 78 01/03/22 08:05 Resp 18 01/03/22 08:05 BP 108/48 L 01/03/22 08:05 Pulse Ox 98 01/03/22 08:05 O2 Del Method 01/03/22 08:05 O2 Flow Rate 2 01/03/22 08:05 Oxygen Flow Rate 4 01/02/22 11:07 BMI result Body Mass Index 28.5 Const: General: cooperative HEENT: Head: Yes normal to inspection Resp: Effort & Inspection: normal respiratory effort Cardio: Rate: regular rate Rhythm: regular rhythm : General: Yes no CVA tenderness Back/Spine/Pelvis: Back: no CVA tenderness Skin: General skin exam: no rashes or lesions noted Results Labs CBC & Chem 7: 01/02/22 11:12 01/02/22 16:01 Labs: BMP 01/02/22 16:01 Sodium 140 Potassium 4.7 Chloride 106 Carbon Dioxide 30 H BUN 18 H Creatinine 1.37 Calcium 8.7 Microbiology Microbiology Results: Microbiology 01/02/22 13:06 Blood - Venous Blood Culture - Preliminary No growth after 24 hours. 01/02/22 11:38 Blood - Venous Blood Culture - Preliminary No growth after 24 hours. 01/02/22 Unknown Urine Catheterized - Straight Catheter Urine Culture - Final Assessment and Plan (1) COVID: Status: Acute symptoms likely due to COVID unclear since cant give history if there is active UTI,culture blood pending. (2) Encephalopathy: Status: Acute Plan Dexamethasone and Remdesivir only until oxygen saturation is over 93% as stop when this occurs. May give Ceftriaxone but pending urine results Oxygen only if saturation under 94% on room air.
[2022-01-03 15:47] LABS: Anion Gap 15 (12-20); Blood Urea Nitrogen 26 mg/dL (9-16); Calcium 9.5 mg/dL (8.4-10.2); Carbon Dioxide 27 mmol/L (22-29); Chloride 104 mmol/L (96-108); Creatinine Clr Calc Pharmacy 50.1; Estimated Glomerular Filt Rate 40; Glucose Random 138 mg/dL (60-115); Potassium 4.8 mmol/L (3.3-5.1); Sodium 141 mmol/L (135-145)
[2022-01-03] MEDS: cefTRIAXone sodium 1 GM in 0.9 % Sodium Chloride 50 ML IV (16:46)
[2022-01-03] MEDS: Remdesivir 100 MG in 0.9 % Sodium Chloride 230 ML 115 MG IV (16:55)
--- NOTE | 2022-01-03 17:39 | PC.NURSE ---
Assumed patient care at 3pm. Alert, VSS, afebrile. No acute resp. distress noted. IV ceftriaxone and Remdesivir given as ordered, no adverse reaction noted.
--- NOTE | 2022-01-03 18:33 | PC.NURSE ---
pt ate her entire dinner tray.
--- NOTE | 2022-01-03 18:59 | PC.NURSE ---
Addendum entered by Dilma Garcia 01/04/22 06:50: Report given to ZOE Boggs Original Note: report received from ZOE Castillo
[2022-01-03] MEDS: Mirtazapine 7.5 MG TABLET PO (20:56)
[2022-01-03] MEDS: Atorvastatin Calcium 10 MG TABLET PO (20:56)
[2022-01-04] VITALS (7 sets, daily range): BP systolic 93–135; BP diastolic 37–105; PULSE 59–86; RESP 14–21; TEMP 35.6–36.9; O2SAT 89–97
[2022-01-04] MEDS: Levothyroxine Sodium 100 MCG TABLET PO (06:29)
[2022-01-04 07:10] LABS: Hematocrit 31.9 % (37.0-47.0); Hemoglobin 9.6 g/dl (12.0-16.0); Mean Corpuscular HGB Conc 30.1 g/dl (31.0-35.0); Mean Corpuscular Hemoglobin 30.4 pg (27.0-33.0); Mean Corpuscular Volume 100.9 fL (80.0-98.0); Mean Platelet Volume 10.8 fL (9.4-12.3); Red Blood Count 3.16 X10*6/uL (4.20-5.50); Red Cell Distribution Width 14.8 % (11.0-16.0); White Blood Count 6.8 X10*3/uL (4.8-10.8)
[2022-01-04 07:22] LABS: Platelet Count 84 X10*3/uL (160-400)
[2022-01-04 07:36] LABS: Alanine Aminotransferase < 6 U/L (0-31); Albumin Level 3.4 g/dL (3.5-5.0); Alkaline Phosphatase 46 U/L (39-117); Anion Gap 13 (12-20); Aspartate Amino Transferase 14 U/L (5-31); Bilirubin Total < 0.2 mg/dL (0.0-1.0); Blood Urea Nitrogen 30 mg/dL (9-16); C Reactive Protein 3.14 mg/dL (< or = 0.50); Calcium 9.6 mg/dL (8.4-10.2); Carbon Dioxide 30 mmol/L (22-29); Chloride 106 mmol/L (96-108); Creatinine Clr Calc Pharmacy 65.9; Estimated Glomerular Filt Rate 56; Glucose Random 98 mg/dL (60-115); Potassium 4.6 mmol/L (3.3-5.1); Sodium 144 mmol/L (135-145)
[2022-01-04] MEDS: Lactulose 20 GM/30 ML SOLUTION PO ×2 (07:56→21:23)
[2022-01-04] MEDS: traZODone HCL 100 MG TABLET 200 MG PO ×2 (07:56→21:23)
[2022-01-04] MEDS: QUEtiapine Fumarate 50 MG TABLET PO ×3 (07:57→21:23)
[2022-01-04] MEDS: Divalproex Sodium Sprinkles 125 MG CAP.DR.SPR 1000 MG PO ×2 (07:57→21:23)
[2022-01-04] MEDS: dexAMETHasone sod phosphate 4 MG/ML VIAL 6 MG IVPUSH (07:57)
[2022-01-04] MEDS: Apixaban 2.5 MG TABLET PO ×2 (07:57→21:23)
--- NOTE | 2022-01-04 08:58 | PC.NURSE ---
took all of morning hs meds crushed w apple sauce w/o issue. pt cooperative w feed at that time, foster.
--- NOTE | 2022-01-04 13:00 | P.PNIM_ITS ---
Subjective Subjective Date of Service: 01/04/22 Interval History: cc: sob interval history:no complaints Cardiovascular Cardiovascular: Reports no additional cardiovascular complaints Gastrointestinal Gastrointestinal: Reports no additional gastrointestinal complaints Physical Exam Vital Signs: Vital Signs: Last Vital Signs Temp 96.8 F 01/04/22 09:47 Pulse 64 01/04/22 10:39 Resp 20 01/04/22 10:39 BP 135/103 H 01/04/22 10:39 Pulse Ox 89 L 01/04/22 10:39 O2 Del Method 01/04/22 10:39 O2 Flow Rate 2 01/04/22 09:47 Oxygen Flow Rate 4 01/02/22 11:07 BMI result Body Mass Index 28.5 Const: General: cooperative HEENT: Head: Yes normal to inspection Resp: Effort & Inspection: normal respiratory effort Cardio: Rate: regular rate Rhythm: regular rhythm : General: Yes no CVA tenderness Back/Spine/Pelvis: Back: no CVA tenderness Skin: General skin exam: no rashes or lesions noted Objective Data Active Medications Acetaminophen (Acetaminophen 325 Mg Tablet) 650 mg PO Q6H PRN PRN Reason: Pain, Mild (Pain Scale 1-3) Apixaban (Apixaban 2.5 Mg Tablet) 2.5 mg PO BID [facility] Last Admin: 01/04/22 07:57 Dose: 2.5 mg Documented By: BRIAN Atorvastatin Calcium (Atorvastatin Calcium 10 Mg Tablet) 10 mg PO BEDTIME [facility] Last Admin: 01/03/22 20:56 Dose: 10 mg Documented By: KRISS Dexamethasone Sodium Phosphate (Dexamethasone Sod Phosphate 4 Mg/Ml Vial) 6 mg IVPUSH DAILY [facility] Last Admin: 01/04/22 07:57 Dose: 6 mg Documented By: BRIAN Comments: Divalproex Sodium (Divalproex Sodium Sprinkles 125 Mg ) 1,000 mg PO BID [facility] Last Admin: 01/04/22 07:57 Dose: 1,000 mg Documented By: BRIAN Ceftriaxone Sodium 1 gm/ (Sodium Chloride) 50 mls @ 100 mls/hr IV Q24H [facility] Stop: 01/08/22 16:29 Last Infusion: 01/03/22 17:39 Dose: 0 mls/hr Documented By: PEPE Remdesivir 100 mg/ Sodium (Chloride) 230 mls @ 115 mls/hr IV Q24H [facility] Stop: 01/06/22 18:59 Last Infusion: 01/03/22 19:15 Dose: 0 mls/hr Documented By: ARELY-ANICL Lactulose (Lactulose 20 Gm/30 Ml Solution) 20 gm PO BID [facility] Last Admin: 01/04/22 07:56 Dose: 20 gm Documented By: BRIAN Levothyroxine Sodium (Levothyroxine Sodium 100 Mcg Tablet) 100 mcg PO DAILY@0630 [facility] Last Admin: 01/04/22 06:29 Dose: 100 mcg Documented By: ARELY-NICICL Mirtazapine (Mirtazapine 7.5 Mg Tablet) 7.5 mg PO BEDTIME [facility] Last Admin: 01/03/22 20:56 Dose: 7.5 mg Documented By: ARELY-NICICL Ondansetron HCl (Ondansetron Hcl 4 Mg/2 Ml Vial) 4 mg IVPUSH Q8H PRN PRN Reason: Nausea and Vomiting Pharmacy Consult (Consult Rx Perform Med Rec) 1 each MISCELLANE ONCE PRN PRN Reason: Consult order Quetiapine Fumarate (Quetiapine Fumarate 50 Mg Tablet) 50 mg PO TID [facility] Last Admin: 01/04/22 07:57 Dose: 50 mg Documented By: BRIAN Sodium Chloride (0.9 % Sodium Chloride Flush 3 Ml Syringe) 3 ml IVFLUSH QSHIFT [facility] Last Admin: 01/04/22 07:01 Dose: Not Given Documented By: BRIAN Non-Admin Reason: Med Not Available Trazodone HCl (Trazodone Hcl 100 Mg Tablet) 200 mg PO BID [facility] Last Admin: 01/04/22 07:56 Dose: 200 mg Documented By: BRIAN Labs CBC & Chem 7: 01/04/22 06:58 01/04/22 06:58 Labs: Laboratory Results - last 24 hr 01/03/22 01/04/22 01/04/22 15:05 06:58 06:58 MCV 100.9 H MCH 30.4 MCHC 30.1 L RDW 14.8 Plt Count 84 L MPV 10.8 Absolute Nucleated RBC 0.000 Nucleated RBC % (auto) 0.0 Anion Gap 15 13 Estim Creat Clear Calc 50.1 65.9 Estimated GFR 40 56 Random Glucose 138 H 98 Calcium 9.5 D 9.6 Total Bilirubin < 0.2 AST 14 ALT < 6 Alkaline Phosphatase 46 C-Reactive Protein 3.14 H Total Protein 6.0 L Albumin 3.4 L Microbiology Microbiology Results: Microbiology 01/02/22 13:06 Blood Culture - Preliminary Blood - Venous No growth after 24 hours. 01/02/22 11:38 Blood Culture - Preliminary Blood - Venous No growth after 24 hours. 01/02/22 Unknown Urine Culture - Final Urine Catheterized - Straight Catheter Assessment and Plan (1) UTI (urinary tract infection): Status: Acute (2) Encephalopathy: Status: Acute (3) COVID: Status: Acute Plan hospital d#3 61yo F with severe intellectual disability, schizoaffective disorder, CKD3 (SCr 1.57 (05/13/21), hypothyroidism, HLD, frequent UTIs, dysphagia, and history of PE currently anticoagulated on apixaban presenting with 1 day of dyspnea and cough, lethargic and hypoxic this morning, found to have Covid-19 infection and UTI. acute hypoxic respiratory failure due to severe Covid-19 disease - isolation, remdesivir d#3, dexamethasone d#3, - supplemental O2 to wean as tolerated 89% on room air, 96% on 2L UTI, catheter-assoc - ceftriaxone d#08/20, urine culture negative toxic/metabolic encephalopathy - due to hypoxia/Covid-19 + infection, treat as above CHRONIC CONDITIONS: # CKD3: SCr at baseline, avoid nephrotoxins # hx PE: continue apixaban # HLD: continue atorvastatin # schizoaffective: continue divalproex, mirtazapine, quetiapine, and trazodone # dysphagia: NDD1 [pureed] solids, thin liquids, 1:1 for all feeds, meds crushed in puree # VTE prophylaxis: apixaban In my clinical judgment, the patient requires continued hospitalization for the following reasons: hypoxia Quality Stroke Does the patient have a stroke diagnosis?: No VTE Prior VTE?: No VTE Risk Level:: Medical - moderate - high VTE Device Contraindication: N/A - Device Ordered VTE Drug Contraindication: N/A - Med Ordered
[2022-01-04] MEDS: cefTRIAXone sodium 1 GM in 0.9 % Sodium Chloride 50 ML IV (15:35)
[2022-01-04] MEDS: Remdesivir 100 MG in 0.9 % Sodium Chloride 230 ML 115 MG IV (18:34)
--- NOTE | 2022-01-04 18:40 | PC.NURSE ---
PATIENT WAS FED BY THIS PCT ,PATIENT ATE 100 % OF SUPPER
--- NOTE | 2022-01-04 20:27 | PC.NURSE ---
Addendum entered by Dilma Garcia 01/05/22 07:01: report given to ZOE Diego Original Note: Report received from ZOE Boggs. pt is alert and oriented. resting in bed. no signs of acute distress notice
[2022-01-04] MEDS: Atorvastatin Calcium 10 MG TABLET PO (21:23)
[2022-01-04] MEDS: Mirtazapine 7.5 MG TABLET PO (21:23)
--- NOTE | 2022-01-04 21:24 | PC.NURSE ---
PATIENT WAS INC OF LARGE BOWEL MOVEMENT ,BED BATH GIVEN HAIR COMB ,LOTION APPLY TO SKIN .
[2022-01-05] VITALS: BP 119/60; PULSE 64; RESP 16; TEMP 36.6; O2SAT 96
[2022-01-05 04:00] VITALS: BP 105/61; PULSE 60; RESP 16; TEMP 36.6; O2SAT 97
[2022-01-05 05:49] VITALS: BP 95/58; PULSE 59; RESP 16; TEMP 36.6; O2SAT 97
--- NOTE | 2022-01-05 06:01 | PC.NURSE ---
patient got reposition throughout the night .
[2022-01-05 06:08] LABS: Hematocrit 30.8 % (37.0-47.0); Hemoglobin 9.4 g/dl (12.0-16.0); Mean Corpuscular HGB Conc 30.5 g/dl (31.0-35.0); Mean Corpuscular Hemoglobin 30.6 pg (27.0-33.0); Mean Corpuscular Volume 100.3 fL (80.0-98.0); Mean Platelet Volume 11.1 fL (9.4-12.3); Platelet Count 85 X10*3/uL (160-400); Red Blood Count 3.07 X10*6/uL (4.20-5.50); Red Cell Distribution Width 14.8 % (11.0-16.0)
[2022-01-05 06:35] LABS: Anion Gap 9 (12-20); Blood Urea Nitrogen 33 mg/dL (9-16); Calcium 9.4 mg/dL (8.4-10.2); Carbon Dioxide 32 mmol/L (22-29); Chloride 103 mmol/L (96-108); Creatinine Clr Calc Pharmacy 51.2; Estimated Glomerular Filt Rate 42; Glucose Fasting 91 mg/dL (60-99); Potassium 4.9 mmol/L (3.3-5.1); Sodium 139 mmol/L (135-145)
[2022-01-05 07:24] LABS: Glucose, Whole Blood 75 mg/dL (60-115)
[2022-01-05] MEDS: Divalproex Sodium Sprinkles 125 MG CAP.DR.SPR 1000 MG PO ×2 (09:30→20:42)
[2022-01-05] MEDS: Lactulose 20 GM/30 ML SOLUTION PO ×2 (09:31→20:44)
[2022-01-05] MEDS: dexAMETHasone sod phosphate 4 MG/ML VIAL 6 MG IVPUSH (09:31)
[2022-01-05] MEDS: traZODone HCL 100 MG TABLET 200 MG PO ×2 (09:31→20:43)
[2022-01-05] MEDS: QUEtiapine Fumarate 50 MG TABLET PO ×3 (09:31→20:43)
[2022-01-05] MEDS: 0.9 % Sodium Chloride Flush 3 ML SYRINGE IVFLUSH ×2 (09:32→20:41)
[2022-01-05] MEDS: Levothyroxine Sodium 100 MCG TABLET PO (09:32)
[2022-01-05] MEDS: Apixaban 2.5 MG TABLET PO ×2 (09:32→20:44)
[2022-01-05 10:03] VITALS: BP 99/50; PULSE 56; RESP 21; TEMP 36.2; O2SAT 92
--- NOTE | 2022-01-05 10:13 | P.PNIM_ITS ---
Subjective Subjective Date of Service: 01/05/22 Interval History: cc: sob interval history:no complaints Cardiovascular Cardiovascular: Reports no additional cardiovascular complaints Gastrointestinal Gastrointestinal: Reports no additional gastrointestinal complaints Physical Exam Vital Signs: Vital Signs: Last Vital Signs Temp 97.8 F 01/05/22 05:49 Pulse 56 01/05/22 10:03 Resp 21 H 01/05/22 10:03 BP 99/50 L 01/05/22 10:03 Pulse Ox 92 01/05/22 10:03 O2 Del Method 01/05/22 10:03 O2 Flow Rate 2 01/05/22 10:03 Oxygen Flow Rate 4 01/02/22 11:07 BMI result Body Mass Index 28.5 Const: General: cooperative HEENT: Head: Yes normal to inspection Resp: Effort & Inspection: normal respiratory effort Cardio: Rate: regular rate Rhythm: regular rhythm : General: Yes no CVA tenderness Back/Spine/Pelvis: Back: no CVA tenderness Skin: General skin exam: no rashes or lesions noted Objective Data Active Medications Acetaminophen (Acetaminophen 325 Mg Tablet) 650 mg PO Q6H PRN PRN Reason: Pain, Mild (Pain Scale 1-3) Apixaban (Apixaban 2.5 Mg Tablet) 2.5 mg PO BID [facility] Last Admin: 01/05/22 09:32 Dose: 2.5 mg Documented By: SANDRA Atorvastatin Calcium (Atorvastatin Calcium 10 Mg Tablet) 10 mg PO BEDTIME [facility] Last Admin: 01/04/22 21:23 Dose: 10 mg Documented By: ARELY-MOISÉS Dexamethasone Sodium Phosphate (Dexamethasone Sod Phosphate 4 Mg/Ml Vial) 6 mg IVPUSH DAILY [facility] Last Admin: 01/05/22 09:31 Dose: 6 mg Documented By: SANDRA Divalproex Sodium (Divalproex Sodium Sprinkles 125 Mg ) 1,000 mg PO BID [facility] Last Admin: 01/05/22 09:30 Dose: 1,000 mg Documented By: SANDRA Ceftriaxone Sodium 1 gm/ (Sodium Chloride) 50 mls @ 100 mls/hr IV Q24H [facility] Stop: 01/08/22 16:29 Last Infusion: 01/04/22 16:24 Dose: 0 mls/hr Documented By: BRIAN Remdesivir 100 mg/ Sodium (Chloride) 230 mls @ 115 mls/hr IV Q24H [facility] Stop: 01/06/22 18:59 Last Infusion: 01/04/22 21:24 Dose: 0 mls/hr Documented By: ARELY-MOISÉS Lactulose (Lactulose 20 Gm/30 Ml Solution) 20 gm PO BID [facility] Last Admin: 01/05/22 09:31 Dose: 20 gm Documented By: SANDRA Levothyroxine Sodium (Levothyroxine Sodium 100 Mcg Tablet) 100 mcg PO DAILY@0630 [facility] Last Admin: 01/05/22 09:32 Dose: 100 mcg Documented By: SANDRA Mirtazapine (Mirtazapine 7.5 Mg Tablet) 7.5 mg PO BEDTIME [facility] Last Admin: 01/04/22 21:23 Dose: 7.5 mg Documented By: KRISS Ondansetron HCl (Ondansetron Hcl 4 Mg/2 Ml Vial) 4 mg IVPUSH Q8H PRN PRN Reason: Nausea and Vomiting Pharmacy Consult (Consult Rx Perform Med Rec) 1 each MISCELLANE ONCE PRN PRN Reason: Consult order Quetiapine Fumarate (Quetiapine Fumarate 50 Mg Tablet) 50 mg PO TID [facility] Last Admin: 01/05/22 09:31 Dose: 50 mg Documented By: SANDRA Sodium Chloride (0.9 % Sodium Chloride Flush 3 Ml Syringe) 3 ml IVFLUSH QSHIFT [facility] Last Admin: 01/05/22 09:32 Dose: 3 ml Documented By: SANDRA Trazodone HCl (Trazodone Hcl 100 Mg Tablet) 200 mg PO BID [facility] Last Admin: 01/05/22 09:31 Dose: 200 mg Documented By: SANDRA Labs CBC & Chem 7: 01/05/22 05:45 01/05/22 05:45 Labs: Laboratory Results - last 24 hr 01/05/22 01/05/22 01/05/22 05:45 05:45 07:20 MCV 100.3 H MCH 30.6 MCHC 30.5 L RDW 14.8 Plt Count 85 L MPV 11.1 Absolute Nucleated RBC 0.000 Nucleated RBC % (auto) 0.0 Anion Gap 9 L Estim Creat Clear Calc 51.2 Estimated GFR 42 POC Glucose 75 Fasting Glucose 91 Calcium 9.4 Microbiology Microbiology Results: Microbiology 01/02/22 13:06 Blood Culture - Preliminary Blood - Venous No growth after 48 hours. 01/02/22 11:38 Blood Culture - Preliminary Blood - Venous No growth after 48 hours. Assessment and Plan (1) UTI (urinary tract infection): Status: Acute (2) Encephalopathy: Status: Acute (3) COVID: Status: Acute Plan hospital d#3 61yo F with severe intellectual disability, schizoaffective disorder, CKD3 (SCr 1.57 (05/13/21), hypothyroidism, HLD, frequent UTIs, dysphagia, and history of PE currently anticoagulated on apixaban presenting with 1 day of dyspnea and cough, lethargic and hypoxic this morning, found to have Covid-19 infection and UTI. acute hypoxic respiratory failure due to severe Covid-19 disease - isolation, remdesivir d#4/, dexamethasone d#4, - supplemental O2 to wean as tolerated still needed o2 UTI, catheter-assoc - ceftriaxone d#4, urine culture negative toxic/metabolic encephalopathy - due to hypoxia/Covid-19 + infection, treat as above CHRONIC CONDITIONS: # CKD3: SCr at baseline, avoid nephrotoxins # hx PE: continue apixaban # HLD: continue atorvastatin # schizoaffective: continue divalproex, mirtazapine, quetiapine, and trazodone # dysphagia: NDD1 [pureed] solids, thin liquids, 1:1 for all feeds, meds crushed in puree # VTE prophylaxis: apixaban In my clinical judgment, the patient requires continued hospitalization for the following reasons: hypoxia Quality Stroke Does the patient have a stroke diagnosis?: No VTE Prior VTE?: No VTE Risk Level:: Medical - moderate - high VTE Device Contraindication: N/A - Device Ordered VTE Drug Contraindication: N/A - Med Ordered
[2022-01-05 12:22] LABS: Glucose, Whole Blood 98 mg/dL (60-115)
--- NOTE | 2022-01-05 13:04 | PC.NURSE ---
report given to ZOE Newman. pt will be transferred to room 471.
[2022-01-05 15:12] VITALS: BP 154/68; PULSE 72; RESP 20; TEMP 36.3; O2SAT 94
[2022-01-05] MEDS: cefTRIAXone sodium 1 GM in 0.9 % Sodium Chloride 50 ML IV (16:00)
[2022-01-05] MEDS: Remdesivir 100 MG in 0.9 % Sodium Chloride 230 ML 115 MG IV (17:56)
[2022-01-05 20:00] VITALS: BP 116/58; PULSE 64; RESP 16; TEMP 36.4; O2SAT 98
[2022-01-05] MEDS: Atorvastatin Calcium 10 MG TABLET PO (20:43)
[2022-01-05] MEDS: Mirtazapine 7.5 MG TABLET PO (20:45)
[2022-01-06] VITALS: BP 121/54; PULSE 60; RESP 18; TEMP 37.1; O2SAT 96
[2022-01-06 03:04] VITALS: BP 118/64; PULSE 72; RESP 20; TEMP 37.2; O2SAT 96
[2022-01-06] MEDS: Levothyroxine Sodium 100 MCG TABLET PO (05:37)
[2022-01-06 07:48] VITALS: BP 110/75; PULSE 74; RESP 20; TEMP 36.1; O2SAT 89
--- NOTE | 2022-01-06 09:43 | HO.PM.IMPN ---
Subjective Subjective Date of Service: 01/06/22 Interval History: cc: sob interval history:no complaints Cardiovascular Cardiovascular: Reports no additional cardiovascular complaints Gastrointestinal Gastrointestinal: Reports no additional gastrointestinal complaints Physical Exam Vital Signs: Vital Signs: Last Vital Signs Temp 96.9 F 01/06/22 07:48 Pulse 74 01/06/22 07:48 Resp 20 01/06/22 07:48 BP 110/75 01/06/22 07:48 Pulse Ox 89 L 01/06/22 07:48 O2 Del Method 01/06/22 07:48 O2 Flow Rate 2 01/05/22 10:03 Oxygen Flow Rate 4 01/02/22 11:07 BMI result Body Mass Index 28.5 Const: General: cooperative HEENT: Head: Yes normal to inspection Resp: Effort & Inspection: normal respiratory effort Cardio: Rate: regular rate Rhythm: regular rhythm : General: Yes no CVA tenderness Back/Spine/Pelvis: Back: no CVA tenderness Skin: General skin exam: no rashes or lesions noted Objective Data Active Medications Acetaminophen (Acetaminophen 325 Mg Tablet) 650 mg PO Q6H PRN PRN Reason: Pain, Mild (Pain Scale 1-3) Apixaban (Apixaban 2.5 Mg Tablet) 2.5 mg PO BID [facility] Last Admin: 01/05/22 20:44 Dose: 2.5 mg Documented By: DAI Atorvastatin Calcium (Atorvastatin Calcium 10 Mg Tablet) 10 mg PO BEDTIME [facility] Last Admin: 01/05/22 20:43 Dose: 10 mg Documented By: DAI Dexamethasone Sodium Phosphate (Dexamethasone Sod Phosphate 4 Mg/Ml Vial) 6 mg IVPUSH DAILY [facility] Last Admin: 01/05/22 09:31 Dose: 6 mg Documented By: SANDRA Divalproex Sodium (Divalproex Sodium Sprinkles 125 Mg ) 1,000 mg PO BID [facility] Last Admin: 01/05/22 20:42 Dose: 1,000 mg Documented By: DAI Ceftriaxone Sodium 1 gm/ (Sodium Chloride) 50 mls @ 100 mls/hr IV Q24H [facility] Stop: 01/08/22 16:29 Last Infusion: 01/05/22 17:09 Dose: 0 mls/hr Documented By: DAYAMI Remdesivir 100 mg/ Sodium (Chloride) 230 mls @ 115 mls/hr IV Q24H [facility] Stop: 01/06/22 18:59 Last Infusion: 01/05/22 20:47 Dose: 0 mls/hr Documented By: DAI Lactulose (Lactulose 20 Gm/30 Ml Solution) 20 gm PO BID [facility] Last Admin: 01/05/22 20:44 Dose: 20 gm Documented By: DAI Levothyroxine Sodium (Levothyroxine Sodium 100 Mcg Tablet) 100 mcg PO DAILY@0630 [facility] Last Admin: 01/06/22 05:37 Dose: 100 mcg Documented By: DAI Mirtazapine (Mirtazapine 7.5 Mg Tablet) 7.5 mg PO BEDTIME [facility] Last Admin: 01/05/22 20:45 Dose: 7.5 mg Documented By: DAI Ondansetron HCl (Ondansetron Hcl 4 Mg/2 Ml Vial) 4 mg IVPUSH Q8H PRN PRN Reason: Nausea and Vomiting Pharmacy Consult (Consult Rx Perform Med Rec) 1 each MISCELLANE ONCE PRN PRN Reason: Consult order Quetiapine Fumarate (Quetiapine Fumarate 50 Mg Tablet) 50 mg PO TID [facility] Last Admin: 01/05/22 20:43 Dose: 50 mg Documented By: DAI Sodium Chloride (0.9 % Sodium Chloride Flush 3 Ml Syringe) 3 ml IVFLUSH QSHIFT [facility] Last Admin: 01/05/22 20:41 Dose: 3 ml Documented By: DAI Trazodone HCl (Trazodone Hcl 100 Mg Tablet) 200 mg PO BID [facility] Last Admin: 01/05/22 20:43 Dose: 200 mg Documented By: DAI Labs CBC & Chem 7: 01/05/22 05:45 01/05/22 05:45 Labs: Laboratory Results - last 24 hr 01/05/22 12:18 POC Glucose 98 Assessment and Plan (1) UTI (urinary tract infection): Status: Acute (2) Encephalopathy: Status: Acute (3) COVID: Status: Acute Plan hospital d#4 61yo F with severe intellectual disability, schizoaffective disorder, CKD3 (SCr 1.57 (05/13/21), hypothyroidism, HLD, frequent UTIs, dysphagia, and history of PE currently anticoagulated on apixaban presenting with 1 day of dyspnea and cough, lethargic and hypoxic this morning, found to have Covid-19 infection and UTI. acute hypoxic respiratory failure due to severe Covid-19 disease - isolation, remdesivir d#10/20, dexamethasone d#10/25, - supplemental O2 to wean as tolerated still needed o2 UTI, catheter-assoc - ceftriaxone d#10/20, urine culture negative toxic/metabolic encephalopathy - due to hypoxia/Covid-19 + infection, treat as above CHRONIC CONDITIONS: # CKD3: SCr at baseline, avoid nephrotoxins # hx PE: continue apixaban # HLD: continue atorvastatin # schizoaffective: continue divalproex, mirtazapine, quetiapine, and trazodone # dysphagia: NDD1 [pureed] solids, thin liquids, 1:1 for all feeds, meds crushed in puree # VTE prophylaxis: apixaban In my clinical judgment, the patient requires continued hospitalization for the following reasons: hypoxia Quality Stroke Does the patient have a stroke diagnosis?: No VTE Prior VTE?: No VTE Risk Level:: Medical - moderate - high VTE Device Contraindication: N/A - Device Ordered VTE Drug Contraindication: N/A - Med Ordered
[2022-01-06 10:01] LABS: Hematocrit 32.4 % (37.0-47.0); Hemoglobin 9.9 g/dl (12.0-16.0); Mean Corpuscular HGB Conc 30.6 g/dl (31.0-35.0); Mean Corpuscular Hemoglobin 30.4 pg (27.0-33.0); Mean Corpuscular Volume 99.4 fL (80.0-98.0); Mean Platelet Volume 10.9 fL (9.4-12.3); NRBC Pct Auto 0.4 /100WBC (0.0-0.2); Red Blood Count 3.26 X10*6/uL (4.20-5.50); Red Cell Distribution Width 14.5 % (11.0-16.0); White Blood Count 6.9 X10*3/uL (4.8-10.8)
[2022-01-06 10:02] LABS: Platelet Count 88 X10*3/uL (160-400)
[2022-01-06 10:18] LABS: Anion Gap 13 (12-20); Blood Urea Nitrogen 29 mg/dL (9-16); Calcium 9.3 mg/dL (8.4-10.2); Carbon Dioxide 31 mmol/L (22-29); Chloride 102 mmol/L (96-108); Creatinine Clr Calc Pharmacy 60.5; Estimated Glomerular Filt Rate 50; Glucose Fasting 83 mg/dL (60-99); Potassium 4.7 mmol/L (3.3-5.1); Sodium 141 mmol/L (135-145)
[2022-01-06] MEDS: Lactulose 20 GM/30 ML SOLUTION PO ×2 (10:45→20:25)
[2022-01-06] MEDS: traZODone HCL 100 MG TABLET 200 MG PO ×2 (10:46→20:26)
[2022-01-06] MEDS: dexAMETHasone sod phosphate 4 MG/ML VIAL 6 MG IVPUSH (10:46)
[2022-01-06] MEDS: Divalproex Sodium Sprinkles 125 MG CAP.DR.SPR 1000 MG PO ×2 (10:46→20:25)
[2022-01-06] MEDS: Apixaban 2.5 MG TABLET PO ×2 (10:46→20:26)
[2022-01-06] MEDS: QUEtiapine Fumarate 50 MG TABLET PO ×3 (10:46→20:26)
[2022-01-06 11:42] VITALS: BP 141/70; PULSE 82; RESP 20; TEMP 36.6; O2SAT 92
--- NOTE | 2022-01-06 12:41 | MHC.CM.PN ---
EMR REVIEWED, PER HOSPITALIST PT SHOULD BE CLEARED TO RETURN TO [facility] TOMORROW 01/07 [facility]VER [facility] HAS BEEN DECLINING TO TAKE COVID + PTS BACK UNTIL DAY 11 AFTER COVID TEST, CM HAS SENT MESSAGE TO [facility] TO DETERMINE IF THEY WILL TAKE PT BACK OR IF SHE WILL NEED TO WAIT UNTIL 01/13/22. CM WILL CONT TO FOLLOW D/C NEEDS.
--- NOTE | 2022-01-06 14:02 | PC.NURSE ---
covid precautions maintained. safety and fall precautions maintained. call beaver within reach.
[2022-01-06 15:53] VITALS: BP 104/50; PULSE 90; RESP 22; TEMP 36.2; O2SAT 90
[2022-01-06] MEDS: cefTRIAXone sodium 1 GM in 0.9 % Sodium Chloride 50 ML IV (16:57)
[2022-01-06] MEDS: Remdesivir 100 MG in 0.9 % Sodium Chloride 230 ML 115 MG IV (17:05)
[2022-01-06 19:40] VITALS: BP 148/87; PULSE 89; RESP 17; TEMP 37.2; O2SAT 97
[2022-01-06] MEDS: 0.9 % Sodium Chloride Flush 3 ML SYRINGE IVFLUSH (20:26)
[2022-01-06] MEDS: Mirtazapine 7.5 MG TABLET PO (20:26)
[2022-01-06] MEDS: Atorvastatin Calcium 10 MG TABLET PO (20:26)
[2022-01-07] VITALS: BP 128/76; PULSE 76; RESP 18; TEMP 37; O2SAT 96
[2022-01-07 04:00] VITALS: BP 128/67; PULSE 68; RESP 20; TEMP 36.8; O2SAT 98
[2022-01-07] MEDS: Levothyroxine Sodium 100 MCG TABLET PO (05:57)
[2022-01-07 07:57] VITALS: BP 119/54; PULSE 67; RESP 20; TEMP 36.1; O2SAT 98
[2022-01-07] MEDS: QUEtiapine Fumarate 50 MG TABLET PO ×2 (09:52→15:44)
[2022-01-07] MEDS: Apixaban 2.5 MG TABLET PO (09:52)
[2022-01-07] MEDS: traZODone HCL 100 MG TABLET 200 MG PO (09:52)
[2022-01-07] MEDS: 0.9 % Sodium Chloride Flush 3 ML SYRINGE IVFLUSH ×2 (09:59→15:58)
[2022-01-07] MEDS: Lactulose 20 GM/30 ML SOLUTION PO (09:59)
[2022-01-07] MEDS: dexAMETHasone sod phosphate 4 MG/ML VIAL 6 MG IVPUSH (09:59)
[2022-01-07] MEDS: Divalproex Sodium Sprinkles 125 MG CAP.DR.SPR 1000 MG PO (10:01)
--- NOTE | 2022-01-07 11:30 | P.DS_ITS ---
DS: Providers Provider Date of Service: 01/07/22 Date of admission: 01/02/22 15:35 Primary care physician: Ondina Sewell MD Consults: 01/02/22 14:49 Consult to Infectious Diseases Routine Consulting Provider: Samira Rodriguez Reason for consultation: Covid-19 DS: Diagnosis Discharge Diagnosis (1) UTI (urinary tract infection): Status: Acute (2) Encephalopathy: Status: Acute (3) COVID: Status: Acute DS: Summary Hospital Course Hospital Course: from initial hpi: Chief Complaint: hypoxia History obtained from the hedge fund manager at [facility], as the patient is unable to give a history due to her mental status. 61yo F with severe intellectual disability, schizoaffective disorder, CKD3 (SCr 1.57 (05/13/21), hypothyroidism, HLD, frequent UTIs, dysphagia, and history of PE currently anticoagulated on apixaban who developed cough and dyspnea yesterday and today became lethargic and was found to be hypoxic.? She was placed on 6L O2 via NC and sent to the ED, where she tested positive for Covid- 19.? She had the primary Cerebrex mRNA vaccine series in June 2020, followed by a booster on 10/27/21.? Currently, there are 8 patients at [facility] with Covid-19 infection.? She had a low-grade temperature elevation to 100.2 and was tachypneic with RR of 23.? SaO2 was 89 on room air and she was placed on 2L O2 v ia NC.? Platelet count was 90.? Creatinine 1.55.? CRP 7.37.? She has nitrituria and pyuria.? CXR no acute disease. hospital course: Patient was admitted for acute hypoxic respiratory failure secondary to COVID- 19. She was given 5 days of remdesivir and 5 days of dexamethasone. Her symptoms significantly improved and she was able to be weaned off oxygen. She should statin isolation for another 5 days, no need for further medical treatment. She was also diagnosed with a catheter associated urinary tract infection, urine cultures were negative, she received 5 days of ceftriaxone. For toxic metabolic encephalopathy this was likely due to hypoxia from her COVID and she has returned to baseline. For her history of PE she was continue apixaban, for hyperlipidemia she was continued on atorvastatin, for her schizoaffective disorder she was continued on Depakote, mirtazapine, reciprocal, trazodone. For her dysphagia she will continue pureed solids with thin liquids. For her CKD 3 her creatinine remained stable. Patient will be discharged back to [facility]. Time Spent with Patient Time attestation: Total time spent providing and/or coordinating discharge services: Discharge coordination time: Greater than 30 minutes Quality: Safe Use of Opioids Does Pt have an Active Cancer Diagnosis on the Problem List?: No Quality: Stroke Does the patient have a stroke diagnosis?: No Physical Exam Vital Signs: Vital Signs: Last Vital Signs Temp 97.0 F 01/07/22 07:57 Pulse 67 01/07/22 07:57 Resp 20 01/07/22 07:57 BP 119/54 L 01/07/22 07:57 Pulse Ox 98 01/07/22 07:57 O2 Del Method 01/07/22 07:57 O2 Flow Rate 3 01/07/22 07:57 Oxygen Flow Rate 4 01/02/22 11:07 BMI result Body Mass Index 28.5 Const: General: cooperative HEENT: Head: Yes normal to inspection Resp: Effort & Inspection: normal respiratory effort Cardio: Rate: regular rate Rhythm: regular rhythm : General: Yes no CVA tenderness Back/Spine/Pelvis: Back: no CVA tenderness Skin: General skin exam: no rashes or lesions noted DS: Data Data Completed and Pending Labs on day of discharge: Preliminary micro results at discharge 01/02/22 13:06 Blood Culture - Preliminary Blood - Venous No growth after 48 hours. 01/02/22 11:38 Blood Culture - Preliminary Blood - Venous No growth after 48 hours. Discharge Plan Discharge Patient Disposition: [facility] Discharge Diagnosis: covid Referrals: [facility] [Outside] - 1 Week Ondina Sewell MD [Primary Care Provider] - 1 Week Discharge Medications: Continued atorvastatin 10 mg Tablet 10 mg PO BEDTIME acetaminophen 500 mg Tablet 1,000 mg PO TID methenamine hippurate 1 gram Tablet 1 g PO BID trazodone 100 mg Tablet 200 mg PO BID divalproex 125 mg Capsule, Delayed Rel Sprinkle 1,000 mg PO BID Rx Instructions: 8 capsules BID mirtazapine 7.5 mg Tablet 7.5 mg PO BEDTIME lactulose [Enulose] 10 gram/15 mL Solution 20 g PO BID quetiapine 50 mg Tablet 50 mg PO TID levothyroxine 100 mcg Capsule 100 mcg PO DAILY Eliquis 2.5 mg Tablet 2.5 mg PO BID Discharge Orders: Discharge Order (Routine); Ordered 01/07/22 Ordered By: Corbin Terry Diet: Advance to usual diet Activity on Discharge: As tolerated Stand Alone Forms: Patient Portal Discharge page Care Plan Goals: recovery Health Concerns: covid Plan of Treatment: isolation per cdc protocol Assessment: see above
--- NOTE | 2022-01-07 11:31 | MHC.CM.PN ---
Addendum entered by Nicki Piedra 01/07/22 11:39: CELIA CONTACTED PTS GUARDIAN, QUINN IGLESIAS [phone] TO INFORM HER OF DC AND DELIVER PTS MEDICARE RIGHTS. SHE PROVIDED AN ADDRESS OF [address] [place] [id number]. TASK SENT TO REGISTRATION TO UPDATE GUARDIANS ADDRESS Original Note: CELIA CONTACTED [facility] NURSING SAND MILL OPERATOR CORE SAND, LILI, AND INFORMED HER PT IS READY TO DC TODAY. CELIA INFORMED HER THE FLOOR NURSE WOULD CALL REPORT AND AMBULANCE TRANSPORT WOULD BE BOOKED FOR 1500 HOURS
[2022-01-07 12:00] VITALS: BP 135/73; PULSE 105; RESP 20; TEMP 36.3; O2SAT 92
== END 2022-01-07 16:00 | disposition skilled nursing facility (03) | DRG 177 ==
LOC: HO.ED 14:04 → HO.EDOVER 15:40 → HO.IMC 01-05 12:05
PROVIDERS: Admitting Provider Family Medicine; Emergency Provider Emergency Medicine; PCP Internal Medicine; Visit Provider Internal Medicine
DX: U07.1 COVID-19 (principal); G92.8 Other toxic encephalopathy; J96.01 Acute respiratory failure with hypoxia; N39.0 Urinary tract infection, site not specified; T83.511A Infection and inflammatory reaction due to indwelling urethral catheter, initial encounter; I12.9 Hypertensive chronic kidney disease with stage 1 through stage 4 chronic kidney disease, or unspecified chronic kidney disease; N18.30 Chronic kidney disease, stage 3 unspecified; E78.5 Hyperlipidemia, unspecified; F25.9 Schizoaffective disorder, unspecified; R13.10 Dysphagia, unspecified; F79 Unspecified intellectual disabilities; Y73.8 Miscellaneous gastroenterology and urology devices associated with adverse incidents, not elsewhere classified; Z86.711 Personal history of pulmonary embolism; Z79.01 Long term (current) use of anticoagulants; Z79.890 Hormone replacement therapy; Z79.899 Other long term (current) drug therapy
CPT/HCPCS: 36415; 71045; 80048; 80053; 80076; 81001; 82728; 82803; 82947; 83605; 83615; 83880; 84145; 84443; 84484; 85025; 85027; 85379; 86140; 87040; 87086; 87635; 93005; 96361; 96374; 99285; J0248; J0696; J1100; J1956

== ENCOUNTER 2022-09-29 13:21 | Inpatient (IN) | payer MEDICARE, MEDICAID, SELFPAY ==
[2022-09-29] VITALS (40 sets, daily range): BP systolic 74–129; BP diastolic 24–70; PULSE 79–129; RESP 17–30; TEMP -17.2–38.3; O2SAT 90–100; BMI 28.4
--- NOTE | ~2022-09-29 | XR_ITS ---
EXAMINATION: XR CHEST CLINICAL INFORMATION: Central line placement COMPARISON: 09/29/2022 TECHNIQUE: Frontal view of the chest was obtained. FINDINGS: Right internal jugular central venous catheter terminates near the cavoatrial junction. Cardiac leads overlie the chest. Lung volumes are low. There is significant improvement in aeration of the left lung with patchy opacities seen throughout the lungs, greatest at the left base remaining. Bronchial wall thickening noted, with increased markings in the right lung compared to prior. No significant pleural effusion. No pneumothorax. The cardiomediastinal silhouette is unchanged. XR/XR chest 1V IMPRESSION: 1. Right internal jugular central venous catheter terminates near the cavoatrial junction. No pneumothorax. 2. Significant improvement in aeration of the left lung with patchy opacities remaining. Increased markings in the right lung with bronchial wall thickening.
--- NOTE | ~2022-09-29 | XR_ITS ---
EXAMINATION: XR CHEST CLINICAL INFORMATION: Fever COMPARISON: Previous chest x-ray December 2021 TECHNIQUE: Frontal view of the chest was obtained. FINDINGS: There may be volume loss to the left hemithorax with shift of the central mediastinal structures to the left. There is a new small to moderate left pleural effusion. There may be atelectasis or consolidation in the left lung base. The right lung is clear. No right pleural effusion. No pneumothorax. Degenerative changes of the spine. XR/XR chest 1V IMPRESSION: New small to moderate left pleural effusion. Question volume loss to the left hemithorax and atelectasis or consolidation at the left lung base.
--- NOTE | ~2022-09-29 | XR_ITS ---
EXAMINATION: XR CHEST CLINICAL INFORMATION: Aspiration. COMPARISON: 10/10/2022 TECHNIQUE: Frontal view of the chest was obtained. FINDINGS: Exam is rotated to the left which limits evaluation. The right IJ catheter has been removed. There is progressive opacity at the left lung base with bronchial cutoff sign and ipsilateral shift favoring left lower lobe atelectasis. The right lung is clear. XR/XR chest 1V IMPRESSION: Progressive left lower lobe opacity and ipsilateral shift consistent with left lower lobe atelectasis. Suspect bronchial cutoff sign which may indicate mucous plugging. Consider bronchoscopy.
--- NOTE | ~2022-09-29 | FL_ITS ---
EXAMINATION: XR BARIUM SWALLOW CLINICAL INFORMATION: Dysphagia COMPARISON: None available. TECHNIQUE: Fluoroscopic guidance was provided for barium swallow performed by the speech and hearing department. Patient was administered liquid barium and various food media mixed with barium. FINDINGS: There is aspiration with thin barium. No aspiration or penetration is seen with any other media. FLUOROSCOPY TIME: 1.5 minutes DOSE AREA PRODUCT: 1.2 [place] per centimeter squared. Total dose 4 mgy. FL/FL barium swallow modified IMPRESSION: Aspiration with thin liquid barium. See speech and hearing report for detailed findings.
--- NOTE | ~2022-09-29 | XR_ITS ---
EXAMINATION: XR FOOT, RIGHT CLINICAL INFORMATION: Wound at the heel. Concern for osteomyelitis. COMPARISON: None available. TECHNIQUE: 2 views of the right foot. FINDINGS: Skin defect at the posterior heel. There is osteopenia. No focal bone destruction or abnormal periosteal reaction. No radiographic evidence for osteomyelitis. Small plantar calcaneal spur. Small oblong ossification at the plantar surface of the mid arch of the foot likely related to the plantar aponeurosis. Joint spaces are normal. XR/XR foot RT 2V IMPRESSION: Skin defect at the posterior heel. No radiographic evidence for osteomyelitis. If there is high clinical suspicion for osteomyelitis, MRI would be helpful for further evaluation.
--- NOTE | ~2022-09-29 | US_ITS ---
EXAMINATION: US VENOUS WITH DOPPLER UPPER EXTREMITY, LEFT CLINICAL INFORMATION: Swelling COMPARISON: None available. TECHNIQUE: Ultrasound of the upper extremity is performed using compression sonography and color and pulse Doppler flow with assessment of augmentation of flow. There is also imaging and Doppler assessment of the jugular and subclavian veins. Spectral analysis with color-flow imaging is performed. FINDINGS: Respiratory variation, normal compression, and augmented flow are noted throughout the upper extremity including the axillary, brachial, cubital veins. There is normal flow in the internal jugular and subclavian veins. There is no visible deep or superficial thrombophlebitis. There is partially occlusive thrombus in the cephalic vein. US/US venous duplex UE LT IMPRESSION: 1. No definite DVT demonstrated in the left upper extremity. 2. Partially occlusive thrombus in the left cephalic vein.
--- NOTE | ~2022-09-29 | XR_ITS ---
EXAMINATION: XR CHEST CLINICAL INFORMATION: Hypoxia COMPARISON: 10/05/2022 TECHNIQUE: Frontal view of the chest was obtained. FINDINGS: Right IJ central line tip lies in the region of the cavoatrial junction. The lungs are hypoinflated. Streaky left basilar opacity is noted favoring atelectasis, increased from prior. Mild retrocardiac opacity may also be present. No evidence of pneumothorax, significant pleural effusion, or overt pulmonary edema. Cardiac size is within normal limits. Calcification is present at the aortic arch. No acute osseous findings are seen. XR/XR chest 1V IMPRESSION: Low lung volumes with streaky left basilar opacity favoring atelectasis, increased from prior. Mild retrocardiac opacity may also be present.
--- NOTE | ~2022-09-29 | XR_ITS ---
EXAMINATION: XR CHEST CLINICAL INFORMATION: Hypoxia COMPARISON: Previous chest x-ray most recent 10/07/2022 TECHNIQUE: Frontal view of the chest was obtained. FINDINGS: The cardiac and mediastinal contours are stable. There is a right jugular line with tip projecting over the SVC. There is increasing airspace disease at the left lung base probably representing pneumonia. There is an increasing small left pleural effusion. The right lung is clear. There is no right pleural effusion. There is no pneumothorax. XR/XR chest 1V IMPRESSION: Increasing airspace disease at the left lung base probably representing pneumonia. Findings will be communicated by the [place] work flow wood veneer taper.
--- NOTE | ~2022-09-29 | XR_ITS ---
EXAMINATION: XR CHEST CLINICAL INFORMATION: Fever COMPARISON: 10/30/2022 TECHNIQUE: Frontal view of the chest was obtained. FINDINGS: Normal symmetric lung volumes. No parenchymal consolidation. No pleural effusion. No pneumothorax. Cardiomediastinal silhouette and pulmonary vascularity are within normal limits. No acute osseous abnormalities. XR/XR chest 1V IMPRESSION: No acute findings.
--- NOTE | ~2022-09-29 | CT_ITS ---
EXAMINATION: CT HEAD WITHOUT CONTRAST CLINICAL INFORMATION: Mental status change COMPARISON: None available. TECHNIQUE: Contiguous axial imaging was performed from the skull base to vertex without intravenous administration of contrast. This CT examination was performed using dose optimization techniques as appropriate, variously including the following: *Automated exposure control *Adjustment of mA and/or kV according to patient size (this includes techniques or standardized protocols for targeted exams where dose is matched to indication/reason for exam; i.e. extremities or head) *Use of iterative reconstruction technique DLP: 599 mGy-cm FINDINGS: There is some motion artifact present. No intracranial hemorrhage is identified. No significant mass effect or midline structure shift is seen. No abnormal extra-axial fluid collection is noted. There is prominence of ventricles, sulci, and cisterns consistent with generalized atrophy. Mccauley-white matter interface is maintained. There is periventricular white matter low density seen which appears more prominent about the frontal horns. This is likely due to microangiopathy. This could be related to transependymal flow of CSF from some degree of hydrocephalus. There is a trichilemmalcyst present within the right frontal scalp. There is pansinusitis present. The right mastoid air cells are well aerated. The left mastoid air cells are well aerated with question of previous surgery. CT/CT head/brain wo IV con IMPRESSION: No definite acute intracranial pathology. Generalized atrophy. Pansinusitis.
--- NOTE | ~2022-09-29 | XR_ITS ---
EXAMINATION: XR CHEST CLINICAL INFORMATION: Hypoxia. Shortness COMPARISON: Previous day TECHNIQUE: Frontal view of the chest was obtained. FINDINGS: Normal symmetric lung volumes. Subsegmental atelectasis, left lung base. No pleural effusion. No pneumothorax. Cardiomediastinal silhouette and pulmonary vascularity are within normal limits. No acute osseous abnormalities. XR/XR chest 1V IMPRESSION: Left basilar subsegmental atelectasis. No discrete consolidation.
--- NOTE | ~2022-09-29 | XR_ITS ---
EXAMINATION: XR CHEST CLINICAL INFORMATION: Hypoxia. COMPARISON: Most recent chest radiograph dated 09/29/2022. TECHNIQUE: Frontal view of the chest was obtained. FINDINGS: Right-sided central venous catheter with the tip in the region of the cavoatrial junction. Stable cardiomediastinal silhouette. Focal left lower lung airspace opacity, unchanged when compared to the prior examination. No pleural effusion or pneumothorax. Stable cardiomediastinal silhouette. XR/XR chest 1V IMPRESSION: 1. Focal left lower lung airspace opacity, unchanged. 2. Right-sided central venous catheter in appropriate position. No pleural effusion or pneumothorax.
--- NOTE | ~2022-09-29 | XR_ITS ---
EXAMINATION: XR CHEST CLINICAL INFORMATION: Sepsis. Consent for aspiration. COMPARISON: None available. TECHNIQUE: Frontal view of the chest was obtained. FINDINGS: The lungs are well-expanded with platelike atelectasis in the lingula. Rest lungs are clear. The heart size and pulmonary vascularity is normal. No gross bony abnormality seen. XR/XR chest 1V IMPRESSION: Lingular atelectasis.
--- NOTE | ~2022-09-29 | XR_ITS ---
EXAMINATION: XR CHEST CLINICAL INFORMATION: Aspiration COMPARISON: Chest x-ray 09/29/2022 TECHNIQUE: Frontal oral view of the chest was obtained. 1443 hours FINDINGS: Tubes and lines: 1. Right IJ catheter tip at caval atrial junction. No pneumothorax. No change position since prior study. Patchy airspace opacity at the left lower lung seen on chest x-ray 2022 has substantially improved. Linear small opacity remains. No new airspace disease. No pleural effusion or pneumothorax. Heart size is normal. No pulmonary vascular congestion XR/XR chest 1V IMPRESSION: 1. Right IJ catheter tip at caval atrial junction. No pneumothorax. No change position since prior study. 2. Significant improvement of the patchy airspace opacity at the left lung base.
--- NOTE | 2022-09-29 13:41 | MHC.EDSEPSIS ---
HPI - Sepsis General Chief Complaint: General Medical Stated Complaint: sepsis Time Seen by Provider: 09/29/22 13:33 Source: EMS Mode of arrival: EMS Limitations: altered mental status History of Present Illness HPI Narrative: This is a 62 years old female shelter resident with intellectual disability brought in by the mine supervisor because of fever and low blood pressure. Per EMS blood pressure was in the 70 they started her on IV fluids and norepinephrine MD elicited complaint: fever Onset (ago): day(s) Measured temperature: 1 F Exacerbating factors: nothing Relieving factors: nothing Associated symptoms: denies other symptoms Related Data Home Medications Medication Instructions Recorded Confirmed acetaminophen 500 mg tablet 1,000 mg PO TID 01/02/22 01/02/22 apixaban 2.5 mg tablet (Eliquis) 2.5 mg PO BID 01/02/22 01/02/22 atorvastatin 10 mg tablet 10 mg PO BEDTIME 01/02/22 01/02/22 divalproex 125 mg capsule,delayed 1,000 mg PO BID 01/02/22 01/02/22 release sprinkle lactulose 10 gram/15 mL oral 20 g PO BID 01/02/22 01/02/22 solution (Enulose) levothyroxine 100 mcg capsule 100 mcg PO DAILY 01/02/22 01/02/22 methenamine hippurate 1 gram tablet 1 g PO BID 01/02/22 01/02/22 mirtazapine 7.5 mg tablet 7.5 mg PO BEDTIME 01/02/22 01/02/22 quetiapine 50 mg tablet 50 mg PO TID 01/02/22 01/02/22 trazodone 100 mg tablet 200 mg PO BID 01/02/22 01/02/22 Allergies Allergy/AdvReac Type Severity Reaction Status Date / Time Unable to Assess Allergy Verified 01/02/22 11:20 Review of Systems Review of Systems Yes Unobtainable due to mental condition Physical Exam Vital Signs: Last Vital Signs Temp 98.1 F 09/29/22 16:00 Pulse 128 H 09/29/22 15:00 Resp 23 H 09/29/22 15:00 BP 100/63 09/29/22 15:00 Pulse Ox 92 09/29/22 15:00 O2 Del Method Oxymask 09/29/22 15:00 O2 Flow Rate 4 09/29/22 15:00 BMI result Body Mass Index 28.4 Const General: alert, awake and anxious Nutritional Appearance: average body habitus and well nourished HEENT Head: Yes normal to inspection Ears: hearing grossly normal bilaterally General nose exam: Normal external nose present Mouth: Normal oral and palatal mucosa present Neck Neck: Yes normal visual inspection Chest Chest palpation & inspection: normal inspection of the chest Resp Auscultation: rhonchi Cardio Rhythm: regular rhythm GI Inspection: Yes normal to inspection Palpation (GI): Soft to palpation, not firm and nontender Auscultation: normal bowel sounds Skin General skin exam: no rashes or lesions noted Psych Other: Anxious appearing Course Course Course Narrative: She presented with hypotension fever we are going to start empirically IV antibiotic blood culture/lactic acid IV fluids Reevaluation(s) Reevaluation #1: spoke with the guardian Edith Angeles [phone] she is full code Time: 14:17 Reevaluation #2: Spoke with Dr Gutiérrez so far got 1 Liter of fluids prehospital and 2 liter of fluids in ED,antibiotic started.She has good capillary refill,COR RRR Reevaluation #3: Dr GUTIÉRREZ HERE TO SEE PT Time: 16:34 Additional Reevaluation(s): doing better good capillaty refill ,Cor RRR,received 3 liter of fluids Critical Care Time Critical Care Time Total Critical Care Time: 60 Discharge Plan Discharge Clinical Impression: Sepsis, UTI (urinary tract infection), Pleural effusion on left Patient Disposition: Admitted As Inpatient Sepsis Event Note Evaluation Current stage of sepsis: sepsis Possible source: genitourinary Focused Exam Vital signs: Vital Signs Temp Pulse Resp BP Pulse Ox O2 Del Method O2 Flow Rate 09/29/22 16:00 98.1 F 09/29/22 15:00 128 H 23 H 100/63 92 Oxymask 4 09/29/22 14:24 100.3 F 125 H 22 H 106/61 96 Oxymask 4 09/29/22 14:07 101.0 F H 128 H 30 H 129/63 Nasal Cannula 4 09/29/22 13:44 101.0 F H 129 H 25 H 116/66 Cardiovascular exam: RRR Capillary refill: < 2 Seconds Skin exam: normal turgor Date exam was performed: 09/29/22 Time exam was performed: 16:45 [facility], [facility] Past Medical History Medical History Chronic kidney disease, stage 3 COVID Hx of usp use of blood thinners Hypertension Intellectual disability Pulmonary embolism Schizoaffective disorder Social History Social History Household Members: Unknown / Unable to assess Housing: Unknown / Unable to assess Unable to assess alcohol history related to: Unknown Patient Tobacco Use Status: Tobacco use Unknown Advance Directives: No service: No
[2022-09-29] MEDS: Acetaminophen Supp 650 MG SUPP.RECT PR (14:12)
[2022-09-29] MEDS: 0.9 % Sodium Chloride 1,000 ML 999 ML IVCONT ×2 (14:13→15:10)
[2022-09-29] MEDS: Piperacillin Sodium/Tazobactam 4.5 GM in 0.9 % Sodium Chloride 100 ML IV ×2 (14:13→22:09)
[2022-09-29 14:22] LABS: Basophils Absolute Auto 0.1 X10*3/uL (0.0-0.2); Basophils Percent Auto 0.3 % (0-2); Hematocrit 31.9 % (37.0-47.0); Hemoglobin 8.7 g/dl (12.0-16.0); Imm Gran Abs Auto 0.89 X10*3/uL (0.00-0.03); Imm Gran Pct Auto 4.1 % (0.0-0.4); Lymphocytes Absolute Auto 2.1 X10*3/uL (1.2-4.9); Lymphocytes Percent Auto 9.8 % (20-40); MANUAL DIFF FLAG SCAN; Mean Corpuscular HGB Conc 27.3 g/dl (31.0-35.0); Mean Corpuscular Hemoglobin 27.8 pg (27.0-33.0); Mean Corpuscular Volume 101.9 fL (80.0-98.0); Mean Platelet Volume 10.1 fL (9.4-12.3); Monocytes Absolute Auto 2.5 X10*3/uL (0.1-1.2); Monocytes Percent Auto 11.7 % (2-11); Neutrophils Absolute Auto 15.9 x10*3/uL (2.0-8.3); Neutrophils Percent Auto 74.1 % (45-73); Platelet Count 568 X10*3/uL (160-400); Red Blood Count 3.13 X10*6/uL (4.20-5.50); Red Cell Distribution Width 19.3 % (11.0-16.0); SCAN SMEAR FLAG 1; White Blood Count 21.5 X10*3/uL (4.8-10.8)
[2022-09-29 14:25] LABS: INTERNATIONAL NORM RATIO 1.5 (0.9-1.1)
[2022-09-29 14:25] LABS: Ammonia 30 umol/L (13-55)
[2022-09-29 14:32] LABS: Appearance Urine Turbid; Color Urine Yellow; Glucose Urine UA Negative (Negative); Leukocyte Esterase Urine Large (3+) (Negative); Nitrite Urine Negative (Negative); PH 6.5 (5.0-9.0); Specific Gravity - Urine 1.015 (1.005-1.025); UMIC TRIGGER UACC YES; Urine Blood Moderate (2+) (Negative); Urine Ketones Negative (Negative); Urine Protein 100 (2+) mg/dL (Neg-Trace)
--- NOTE | 2022-09-29 14:35 | PC.NURSE ---
nurse to nurse report called to [facility] to make aware patient will be returning
[2022-09-29 14:39] LABS: Alanine Aminotransferase < 5 U/L (0-31); Albumin Level 2.4 g/dL (3.5-5.0); Alkaline Phosphatase 80 U/L (39-117); Anion Gap 16 (12-20); Aspartate Amino Transferase 10 U/L (5-31); Bilirubin Total 0.3 mg/dL (0.0-1.0); Blood Urea Nitrogen 23 mg/dL (9-16); Calcium 9.8 mg/dL (8.4-10.2); Carbon Dioxide 28 mmol/L (22-29); Chloride 106 mmol/L (96-108); Creatinine Clr Calc Pharmacy 54.7; Estimated Glomerular Filt Rate 45; Glucose Random 95 mg/dL (60-115); Potassium 4.4 mmol/L (3.3-5.1); Sodium 146 mmol/L (135-145); Total Protein 6.1 g/dL (6.5-8.0)
[2022-09-29 14:43] LABS: SLIDE REVIEW VERIFIED
[2022-09-29 14:44] LABS: ABG Refer to POC result
[2022-09-29 14:44] LABS: ABG Base Excess 2.6 mmol/L; ABG HCO3 29 mmol/L (22-26); ABG O2 % Saturation < 30.0 %; ABG pCO2 54 mmHg (32-45); ABG pH 7.33 (7.35-7.45); ABG pO2 27 mmHg (83-108)
[2022-09-29 14:56] LABS: Bacteria Urine 4+ (None Seen); RBC Urine >20 /HPF (0-2); Squamous Epithelial Cell Urine 0-2 /HPF (0-2); UACC Culture Trigger YES; WBC Urine >50 /HPF (0-5)
[2022-09-29 16:24] LABS: Reflex Lactate? Lactic Acid Added
--- NOTE | 2022-09-29 16:45 | PM.CCHP ---
History of Present Illness Date of Service: 09/29/22 Attending physician on admission: Magdy Varner Chief Complaint: hypotensive and febrile 62-year-old lady with severe mental compromise living in an institution about 10 months status post the COVID-19 positivity at this time presenting with hypotension fever fluids were given in the field in [place] was initiated in the upon arrival to the emergency room she got the completion of 3 L of fluid amounting to over 30 cc/kilos blood pressure 90/60 awake very highly agitated screaming out which really looks like it is chronic behavioral has a lactate of 4 but still a serum bicarb of 29 pH of over 7.3 so things are pretty well compensated white count 14015 no particular left shift at this point and a chest x-ray shows almost complete atelectasis of the left lung just a small portion of the apex is aerated and the mediastinum is shifted to the left so clearly it atelectatic and I would not be surprised if this isn't an aspiration issue but the urine looks horrible in the Randall catheter looks horrible filthy it it has a chronic Randall in and clearly the urinary tract is markedly positive as a source but being that she is institutionalized and probably has a had the healthcare associated probably aspiration pneumonitis picture I think we simply need to add the vancomycin to the already administered piperacillin with cultures pending bedside echo demonstrated hyperdynamic left ventricle greater than 80% ejection fraction without segmental wall motion abnormality normal right ventricle no primary valve or pericardial disease and the inferior vena cava still appears to be flat again the patient is highly agitated and just this screaming out and apparently is on the Eliquis because of a prior history of pulmonary embolism and between the tramadol and trazodone the no has 2 serotoninergic mechanisms and I think the only 1 that I would not withdraw would be the valproic acid but the other medicines need to be withdrawn and she is not capable of taking anything orally and the chest x-ray potentially indicates to me that she might have been aspirating to begin with and that is going to have to be checked in addition she is chronically bed ridden and is developing a pressure sore over the coccyx as well as the pressure sores that her on both heels with potential surrounding cellulitis so she has got multiple sources of potential infection Review of Systems Review of Systems: Yes Unobtainable due to mental status PMFSH Past Medical History Medical History (Updated 09/30/22 @ 08:41 by Magdy Varner MD) Chronic kidney disease, stage 3 COVID Hx of [facility] use of blood thinners Hypertension Intellectual disability Pressure sore on ankle Pulmonary embolism Schizoaffective disorder Social History Social History Household Members: Unknown / Unable to assess Housing: Unknown / Unable to assess Unable to assess alcohol history related to: Unable to respond Patient Tobacco Use Status: Tobacco use Unknown Use of substances other than those prescribed or required for medical reasons: Unknown Currently Displaying Signs/Symptoms of Drug Intoxication Withdrawal: No Advance Directives: No Advance Directives Information Provided: No Recently lost weight without trying: Unsure Patient : No service: No Meds Allergies Allergy/AdvReac Type Severity Reaction Status Date / Time Unable to Assess Allergy Verified 01/02/22 11:20 Active Medications: Current Medications Vancomycin HCl (Vancomycin/Ns) 2,000 mg in 500 mls @ 250 mls/hr IV ONCE ONE Stop: 09/29/22 18:44 Home Medications Medication Instructions Recorded Confirmed Last Taken Type acetaminophen 500 mg tablet 1,000 mg PO TID PRN Pain 01/02/22 09/29/22 Unknown History apixaban 2.5 mg tablet (Eliquis) 2.5 mg PO BID 01/02/22 09/29/22 Unknown History atorvastatin 10 mg tablet 10 mg PO BEDTIME 01/02/22 09/29/22 Unknown History divalproex 125 mg capsule,delayed 1,000 mg PO BID 01/02/22 09/29/22 Unknown History release sprinkle lactulose 10 gram/15 mL oral 20 g PO BID 01/02/22 09/29/22 Unknown History solution (Enulose) levothyroxine 100 mcg capsule 100 mcg PO DAILY 01/02/22 09/29/22 Unknown History mirtazapine 7.5 mg tablet 7.5 mg PO BEDTIME 01/02/22 09/29/22 Unknown History quetiapine 50 mg tablet 50 mg PO TID 01/02/22 09/29/22 Unknown History trazodone 100 mg tablet 200 mg PO BID 01/02/22 09/29/22 Unknown History ascorbic acid (vitamin C) 1,000 mg 1,000 mg PO BID 09/29/22 09/29/22 Unknown History tablet (Vitamin C) ascorbic acid (vitamin C) 250 mg 250 mg PO BID 09/29/22 09/29/22 Unknown History tablet (Vitamin C) bisacodyl 10 mg rectal suppository 10 mg DE DAILY PRN Constipation 09/29/22 09/29/22 Unknown History tramadol 50 mg tablet 50 mg PO BID PRN Pain 09/29/22 09/29/22 Unknown History Physical Exam Vital Signs: Vital Signs: Last Vital Signs Temp 98.1 F 09/29/22 16:00 Pulse 128 H 09/29/22 15:00 Resp 23 H 09/29/22 15:00 BP 100/63 09/29/22 15:00 Pulse Ox 92 09/29/22 15:00 O2 Del Method Oxymask 09/29/22 15:00 O2 Flow Rate 4 09/29/22 15:00 BMI result Body Mass Index 28.4 highly agitated and I can separate out an element from delirium from being possible schizoaffective manifestations bedside echo with hyperdynamic LV and RV and no primary valve disease lungs definitely diminished breath sounds on that left side abdomen seems to be soft with no organomegaly Results Labs 09/29/22 14:08 09/29/22 14:08 Labs: Laboratory Results - last 24 hr 09/29/22 09/29/22 09/29/22 14:05 14:06 14:08 MCV 101.9 H MCH 27.8 MCHC 27.3 L RDW 19.3 H Plt Count 568 H D MPV 10.1 Immature Gran % (Auto) 4.1 H Neut % (Auto) 74.1 H Lymph % (Auto) 9.8 L Page % (Auto) 11.7 H Eos % (Auto) 0.0 Baso % (Auto) 0.3 Lymph # (Auto) 2.1 Page # (Auto) 2.5 H Eos # (Auto) 0.0 Baso # (Auto) 0.1 Abs Immat Gran (auto) 0.89 H Absolute Neuts (auto) 15.9 H Absolute Nucleated RBC 0.210 H Nucleated RBC % (auto) 1.0 H Smear Tech's Comments VERIFIED PT INR O2 Saturation ABG pH at Pt Temp ABG pCO2 at Pt Temp ABG pO2 at Pt Temp ABG HCO3 ABG Base Excess (Actual) Anion Gap Estim Creat Clear Calc Estimated GFR Random Glucose Lactic Acid 4.0 H* Calcium Total Bilirubin AST ALT Alkaline Phosphatase Ammonia 30 Total Protein Albumin Urine Color Urine Appearance Urine pH Ur Specific [place] Urine Protein Urine Glucose (UA) Urine Ketones Urine Blood Urine Nitrite Ur Leukocyte Esterase Urine RBC Urine WBC Ur Squamous Epith Cells Urine Bacteria Hyaline Casts 09/29/22 09/29/22 09/29/22 14:08 14:08 14:20 MCV MCH MCHC RDW Plt Count MPV Immature Gran % (Auto) Neut % (Auto) Lymph % (Auto) Page % (Auto) Eos % (Auto) Baso % (Auto) Lymph # (Auto) Page # (Auto) Eos # (Auto) Baso # (Auto) Abs Immat Gran (auto) Absolute Neuts (auto) Absolute Nucleated RBC Nucleated RBC % (auto) Smear Tech's Comments PT 17.0 H INR 1.5 H O2 Saturation ABG pH at Pt Temp ABG pCO2 at Pt Temp ABG pO2 at Pt Temp ABG HCO3 ABG Base Excess (Actual) Anion Gap 16 Estim Creat Clear Calc 54.7 Estimated GFR 45 Random Glucose 95 Lactic Acid Calcium 9.8 Total Bilirubin 0.3 AST 10 ALT < 5 Alkaline Phosphatase 80 Ammonia Total Protein 6.1 L Albumin 2.4 L Urine Color Yellow Urine Appearance Turbid Urine pH 6.5 Ur Specific [place] 1.015 Urine Protein 100 (2+) H Urine Glucose (UA) Negative Urine Ketones Negative Urine Blood Moderate (2+) H Urine Nitrite Negative Ur Leukocyte Esterase Large (3+) H Urine RBC >20 H Urine WBC >50 H Ur Squamous Epith Cells 0-2 Urine Bacteria 4+ Hyaline Casts 3-5 09/29/22 14:35 MCV MCH MCHC RDW Plt Count MPV Immature Gran % (Auto) Neut % (Auto) Lymph % (Auto) Page % (Auto) Eos % (Auto) Baso % (Auto) Lymph # (Auto) Page # (Auto) Eos # (Auto) Baso # (Auto) Abs Immat Gran (auto) Absolute Neuts (auto) Absolute Nucleated RBC Nucleated RBC % (auto) Smear Tech's Comments PT INR O2 Saturation < 30.0 ABG pH at Pt Temp 7.33 L ABG pCO2 at Pt Temp 54 H ABG pO2 at Pt Temp 27 L* ABG HCO3 29 H ABG Base Excess (Actual) 2.6 Anion Gap Estim Creat Clear Calc Estimated GFR Random Glucose Lactic Acid Calcium Total Bilirubin AST ALT Alkaline Phosphatase Ammonia Total Protein Albumin Urine Color Urine Appearance Urine pH Ur Specific [place] Urine Protein Urine Glucose (UA) Urine Ketones Urine Blood Urine Nitrite Ur Leukocyte Esterase Urine RBC Urine WBC Ur Squamous Epith Cells Urine Bacteria Hyaline Casts Imaging Radiologist's Impressions: Impressions Chest X-Ray 09/29/22 14:46 IMPRESSION: New small to moderate left pleural effusion. Question volume loss to the left hemithorax and atelectasis or consolidation at the left lung base. Head CT 09/29/22 15:04 IMPRESSION: No definite acute intracranial pathology. Generalized atrophy. Pansinusitis. Assessment and Plan (1) Atelectasis of left lung: Status: Acute (2) Aspiration into respiratory tract: Status: Acute (3) Pressure sore on ankle: Status: Acute (4) Delirium due to another medical condition, acute, hyperactive: Status: Acute Plan the plan is to admit to the ICU at this point with the free water deficit will start half normal saline with ongoing potassium replacement aggressively at least 150 cc/hour and I would continue with the piperacillin to help us cover cellulitis from the pressure sores and lower extremities as well as a potential aspiration problem as well as the urinary tract but with vancomycin in addition because of the healthcare associated aspiration and the pressure sore coverage of course for Staph and or strep Time Spent With Patient Time: Total time managing care of this patient today 45____ minutes.
[2022-09-29 17:08] LABS: COVID-19 Test Negative (Negative)
[2022-09-29 17:25] LABS: ~Lactic Acid-LAB USE ONLY 2.7 mmol/L (0.5-2.0)
[2022-09-29] MEDS: Heparin Sodium,Porcine 5,000 UNIT/ML VIAL 5000 UNIT SUBCUT (18:21)
[2022-09-29] MEDS: KCl 20 mEq in 0.45% Sod 20 MEQ/1,000 ML IV.SOLN 150 MEQ IVCONT (18:21)
[2022-09-29 18:43] LABS: Reflex Lactate? 2 Y
--- NOTE | 2022-09-29 18:52 | PHA.MEDREC ---
Pharmacy Consult ? Medication Reconciliation Pharmacy has completed the medication reconciliation. List from [facility]
[2022-09-29] MEDS: vancomycin/NS 2,000 MG/500 ML PLAST..BAG 250 MG IV (19:19)
[2022-09-29 19:41] LABS: ~Lactic Acid-LAB USE ONLY 2.5 mmol/L (0.5-2.0)
[2022-09-29] MEDS: Norepinephrine Bitartrate/D5W 8 MG/250 ML PLAST..BAG 7.95 MG IV (19:43)
--- NOTE | 2022-09-29 20:14 | W.MHC.ACPN ---
Advanced Care Planning Note Advanced Care Planning Note Discussed with: other (Patients Karl Angeles) Time spent (in minutes): 25 Narrative: I Had a lengthy conversation with the patient's guardian over the phone, apparently she has in a seen the patient several months, she is aware of the patient's poor quality of life, cognitive impairment, bedbound situation and multiple wounds. She was under the impression that this was assembled UTI, she was made aware that the patient is septic and that she is in the ICU. She is also aware that the patient currently is hypotensive and would require vasopressors as we were not able to maintain adequate perfusion with IV fluids administer per our protocol. The discussion of placing a central line was discussed in detail including risks versus benefits possible complications of the procedures which include but not limited to bleeding, infection, pneumothorax. She understands that this would be ideal for medication administration, avoiding future peripheral sticks for lab draw out, fluid initiation among others. In the presence of the patient's nurse Anat and the patient's guardian agrees to it. In addition, lengthy discussion about the current clinical scenario, quality of life, goals of care took place between as, I am concerned about this patient's overall quality of life and what will happen if she deteriorates, the full code status was addressed and I explained in detail what it means to continue to treat her medically but if she was to decompensate to consider do not resuscitate or intubate given her compromised quality of life and questionable outcome. She offered to talk to the patient's brothers and sisters and come back with an answer, in the meantime the code status remains full and we will continue to treat her to the best of our abilities. She is also aware that disease not a simple UTI as this has failed outpatient treatment with oral antibiotics, in addition there is a concern that there is a right heel surrounding cellulitis which can also be the culprit of infection. 21:30, patient's guardian had called back and stated that she had a discussion with the patient's sisters and brothers and at this point they will continue to respective full code decision, if she was to deteriorate and was to code the with what her resuscitated and intubated and it will only consider other measures if she was to be brain . Total time spent to clarify all the above 25 minutes.
--- NOTE | 2022-09-29 20:14 | W.PM.CCHP ---
Procedures Date of Service Date of Service: 09/29/22 Central Line Placement Right IJ: Central Line Comments: verbal consent was obtained over the phone from the patient's guardian Edith her former [id number], as a witness her nurse Anat also talked to her. A quick time-out was made for clarification and proper patient identification, patient was positioned, landmarks were identified, US used to locate a? large compressible IJ.? The right neck was widely prepped and draped in a full sterile fashion.? Ultrasound was used to locate again the right IJ, the vein was cannulated on the 1st pass with an 18 gauge thin needle, dark nonpulsatile blood return was obtained.? The wire was threaded, a small incision was made at its base and dilator inserted.? A triple-lumen central venous catheter was advanced into the vein up to the hub without problems, wired was removed. Ports had? good blood return and flushed x3.? The catheter was secured with 3 sutures at 3 sites, a Biopatch and dry sterile dressing were applied. Post procedure chest x-ray showed the line to be in good position without pneumothorax.? No bleeding or complications noted. Consent for Procedure: Elective - informed consent obtained Time out performed: Yes Patient placed on monitor/pulse ox: Yes prep: mask, gown and gloves Central line prep: Chlorhexidine scrub Local anesthesia used: other anesthetic ( Dilaudid 2 mg IV) Amount of anesthesia used (ml): 5 Ultrasound used for placement: Yes Central line lumen inserted: triple Post procedure: sutured in place, good blood return, all ports aspirated, flushed, capped and sterile dressing applied Post procedure x-ray: tip of catheter in good position and no pneumothorax seen Patient tolerated procedure: well Complications: none
--- NOTE | 2022-09-29 20:50 | PC.NURSE ---
ASSUMED CARE OF PT AT 1899. PT MOANING IN BED AND RESISTIVE TO CARE. O2 ON AT 8L VIA OXYMASK. NO RESP DISTRESS. O2 SAT 99-100% AND THUS O2 WEANED DOWN TO 3L PER RESP THERAPY. BP LOW WITH SBP 70'S AND MAP 50'S. LEVOPHED STARTED PERIPHERALLY AND BP IMPROVED. DIANA HUMMEL PA-C EXAMINED PT AND CONTACTED PT'S GUARDIAN TO UPDATE ON PT'S STATUS AND GET CONSENT FOR CENTRAL LINE. QUINN(GUARDIAN GAVE CONSENT WITNESSED BY THIS RN). XRAYS OF RIGHT FOOT DONE. WOUND ON HEEL IS WARM AND RED. MULTIPLE WOUNDS NOTED AND PICTURES TAKEN. SEE SKIN DOCUMENTATION FORM. RIGHT LEG IS EDEMATOUS TO 2+ DEGREE PITTING AND LEFT IS NON PITTING. BOTH HEELS WITH PRESSURE INJURIES AND BACK OF RIGHT ANKLE AND RIGHT POSTERIOR KNEE. STAGE II TO COXXYX AREA. AFEBRILE AT PRESENT 99.0. MONITOR SHOWS NSR, RATE 80'S-90'S, NO ECTOPY. VERY LITTLE URINE OUTPUT SINCE 1899...25 ML.
[2022-09-29] MEDS: HYDROmorphone HCl 1 MG/ML SYRINGE IVPUSH (21:11)
[2022-09-29] MEDS: Valproic Acid (as Sodium Salt) 500 MG in Dextrose 5 % 50 ML 55 MG IV (21:55)
[2022-09-29] MEDS: Famotidine/PF 20 MG/2 ML VIAL IVPUSH (22:11)
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
[2022-09-29 23:43] LABS: VBG HCO3 25 mmol/L (22-26); VBG pCO2 55 mmHg; VBG pH 7.26 (7.32-7.43); VBG pO2 58 mmHg
[2022-09-29 23:53] LABS: Lactic Acid 0.7 mmol/L (0.5-2.0)
[2022-09-29 23:56] LABS: Anion Gap 11 (12-20); Blood Urea Nitrogen 20 mg/dL (9-16); Carbon Dioxide 25 mmol/L (22-29); Chloride 110 mmol/L (96-108); Creatinine Clr Calc Pharmacy 75.5; Estimated Glomerular Filt Rate > 60; Glucose Fasting 155 mg/dL (60-99); Potassium 4.1 mmol/L (3.3-5.1); Sodium 142 mmol/L (135-145)
[2022-09-30] VITALS (50 sets, daily range): BP systolic 101–132; BP diastolic 37–85; PULSE 69–118; RESP 14–27; TEMP 36.9–38.6; O2SAT 94–100; BMI 30.8
[2022-09-30 00:07] LABS: Hematocrit 27.8 % (37.0-47.0); Hemoglobin 7.7 g/dl (12.0-16.0); Mean Corpuscular HGB Conc 27.7 g/dl (31.0-35.0); Mean Corpuscular Hemoglobin 28.1 pg (27.0-33.0); Mean Corpuscular Volume 101.5 fL (80.0-98.0); Mean Platelet Volume 9.9 fL (9.4-12.3); NRBC Pct Auto 1.1 /100WBC (0.0-0.2); Platelet Count 630 X10*3/uL (160-400); Red Blood Count 2.74 X10*6/uL (4.20-5.50); Red Cell Distribution Width 18.8 % (11.0-16.0); White Blood Count 32.1 X10*3/uL (4.8-10.8)
[2022-09-30 00:20] LABS: Venous Blood Gas Refer to POC result
[2022-09-30 00:28] LABS: Band Neutrophils Percent 11 % (3-5); Lymphocytes Absolute Manual 3.5 X10*3/uL (1.2-4.9); Lymphocytes Percent Manual 11 % (20-40); Metamyelocytes Absolute 1.9 X10*3/uL; Metamyelocytes Percent 6 %; Monocytes Absolute Manual 2.6 X10*3/uL (0.1-1.2); Monocytes Percent Manual 8 % (2-11); Myelocytes Absolute 0.6 X10*/uL; Myelocytes Percent 2 %; Neutrophils Absolute Manual 23.4 X10*3/uL (2.0-8.3); Neutrophils Percent Manual 62 % (45-73); RBC Morphology NOTED
[2022-09-30 00:29] LABS: Microcytosis 1+ (5-14) /OIF
[2022-09-30 00:30] LABS: Acanthocytes 2+ (3-5) /OIF; Basophilic Stippling 1+ (0-2) /OIF; Polychromasia 2+ (3-5) /OIF
[2022-09-30 00:31] LABS: Dohle Bodies PRESENT; Large Platelet PRESENT; Platelet Estimate INCREASED (NORMAL); Platelet Morphology Comment NOTED; Toxic Granulation PRESENT; WBC Morphology Comment DYSMORPHIC
[2022-09-30] MEDS: Norepinephrine Bitartrate/D5W 8 MG/250 ML PLAST..BAG 79.5 MG IV ×3 (00:33→06:08)
[2022-09-30] MEDS: Albumin Human 25 % 100 ML 133.33 ML IV ×2 (00:50→01:38)
[2022-09-30] MEDS: KCl 20 mEq in 0.45% Sod 20 MEQ/1,000 ML IV.SOLN 150 MEQ IVCONT ×2 (00:53→07:27)
--- NOTE | 2022-09-30 01:20 | PC.NURSE ---
CENTRAL LINE WAS INSERTED BY CAN ORTIZ WITHOUT COMPLICATION. PCXR DONE TO CONFIRM PLACEMENT AND VIEWED BY CAN. OK TO USE LINE. LEVOPHED INFUSING VIA CENTRAL LINE; PRESENTLY AT 0.5 MCG/KG/MIN. BP STABLE 119/43. MONITOR SHOWS SR-ST, 90'S-110, NO ECTOPY. LABS DRAWN FROM LINE AND REVIEWED BY CAN. PT PUT ON BIPAP 12/6 AND 24%. O2 TITRATED TO 28% PER O2 SAT. PT RECEIVED DILAUDID 1 MG IV PRE PROCEDURE AND THE SAME INTRA PROCEDURE FOR SEDATION WITH GOOD EFFECT. YANETH ATTEMPTED BY CAN BUT UNSUCCESSFUL. CVP 9-10. URINE OUTPUT IS 25-70 ML/HR. PT'S GUARDIAN QUINN ROMERO CALLED AND SPOKE TO THIS RN. SHE STATED SHE CALLED THE PT'S FAMILY AND THEY WISH TO KEEP PT A FULL CODE AT THIS TIME.
[2022-09-30] MEDS: Enoxaparin Sodium 80 MG/0.8 ML SYRINGE SUBCUT ×2 (02:43→16:02)
[2022-09-30] MEDS: Piperacillin Sodium/Tazobactam 4.5 GM in 0.9 % Sodium Chloride 100 ML IV ×4 (02:44→19:19)
[2022-09-30] MEDS: Valproic Acid (as Sodium Salt) 500 MG in Dextrose 5 % 50 ML 55 MG IV ×3 (04:58→17:20)
[2022-09-30 05:27] LABS: Hematocrit 26.6 % (37.0-47.0); Hemoglobin 7.5 g/dl (12.0-16.0); Mean Corpuscular HGB Conc 28.2 g/dl (31.0-35.0); Mean Corpuscular Hemoglobin 28.6 pg (27.0-33.0); Mean Corpuscular Volume 101.5 fL (80.0-98.0); Mean Platelet Volume 9.8 fL (9.4-12.3); Platelet Count 604 X10*3/uL (160-400); Red Blood Count 2.62 X10*6/uL (4.20-5.50); Red Cell Distribution Width 18.8 % (11.0-16.0)
[2022-09-30 05:29] LABS: NRBC Pct Auto 1.7 /100WBC (0.0-0.2); WBC ABN SCTR FOR CBC 1; White Blood Count 29.3 X10*3/uL (4.8-10.8)
[2022-09-30 05:31] LABS: VBG Base Excess -2.2 mmol/L; VBG HCO3 23 mmol/L (22-26); VBG pCO2 43 mmHg; VBG pH 7.33 (7.32-7.43); VBG pO2 44 mmHg
[2022-09-30 05:31] LABS: Venous Blood Gas Refer to POC result
[2022-09-30] MEDS: Levothyroxine Sodium 100 MCG/5 ML VIAL 50 MCG IVPUSH (05:37)
[2022-09-30 05:43] LABS: Alanine Aminotransferase 5 U/L (0-31); Albumin Level 2.9 g/dL (3.5-5.0); Alkaline Phosphatase 77 U/L (39-117); Anion Gap 12 (12-20); Aspartate Amino Transferase 14 U/L (5-31); Bilirubin Total 0.8 mg/dL (0.0-1.0); Blood Urea Nitrogen 18 mg/dL (9-16); C Reactive Protein 28.36 mg/dL (< or = 0.50); Calcium 9.1 mg/dL (8.4-10.2); Carbon Dioxide 25 mmol/L (22-29); Chloride 109 mmol/L (96-108); Creatinine Clr Calc Pharmacy 80.3; Estimated Glomerular Filt Rate > 60; Glucose Random 158 mg/dL (60-115); Potassium 3.9 mmol/L (3.3-5.1); Sodium 142 mmol/L (135-145); Total Protein 5.7 g/dL (6.5-8.0)
[2022-09-30 05:52] LABS: Band Neutrophils Percent 8 % (3-5); Lymphocytes Absolute Manual 2.9 X10*3/uL (1.2-4.9); Lymphocytes Percent Manual 10 % (20-40); Metamyelocytes Absolute 0.6 X10*3/uL; Metamyelocytes Percent 2 %; Monocytes Absolute Manual 3.5 X10*3/uL (0.1-1.2); Monocytes Percent Manual 12 % (2-11); Myelocytes Absolute 0.6 X10*/uL; Myelocytes Percent 2 %; Neutrophils Absolute Manual 21.7 X10*3/uL (2.0-8.3); Neutrophils Percent Manual 66 % (45-73); Nucleated Red Blood Cells 1 /100WBC (0-0); RBC Morphology NOTED
[2022-09-30 05:56] LABS: Microcytosis 1+ (5-14) /OIF; Stomatocytes 1+ (5-14) /OIF
[2022-09-30 05:57] LABS: Large Platelet PRESENT; Platelet Estimate INCREASED (NORMAL); Polychromasia 2+ (3-5) /OIF
[2022-09-30 05:59] LABS: Platelet Morphology Comment NOTE
[2022-09-30 06:00] LABS: Toxic Granulation PRESENT
[2022-09-30] MEDS: Famotidine/PF 20 MG/2 ML VIAL IVPUSH ×2 (07:39→19:59)
[2022-09-30] MEDS: Norepinephrine Bitartrate/D5W 8 MG/250 ML PLAST..BAG 82.68 MG IV ×3 (08:53→14:14)
[2022-09-30] MEDS: Albuterol/Iprat 2.5/0.5MG 3 ML AMPUL.NEB INHALE ×4 (08:53→19:16)
[2022-09-30] MEDS: vancomycin HCL 1,000 MG in 0.9 % Sodium Chloride 250 ML 270 MG IV ×2 (08:54→19:59)
[2022-09-30] MEDS: LORazepam 2 MG/ML VIAL 0.5 MG IVPUSH (13:44)
--- NOTE | 2022-09-30 14:22 | PHA.PROG ---
Admission Date/Time: September 29, 2022 16:54 Indication: sepsis Weight in k kg Adjusted body weight in Kg: [place] body weight in Kg: Obesity Dosing Indication % IBW: Serum Creatinine - Last 168 Hours 09/29/22 09/29/22 09/30/22 14:08 23:33 05:15 Creatinine 1.20 0.87 0.85 Estimated CrCl and GFR - Last 168 Hours 09/29/22 09/29/22 04 14:08 23:33 05:15 Estim Creat Clear Calc 54.7 75.5 80.3 Estimated GFR 45 > 60 > 60 Vancomycin Loading Dose: 2000 Current Vancomycin Dosing Regimen: 1000 q12h Vancomycin Monitoring using AUC goal of 400 - 600 range with trough as surrogate marker: 511 Date and Time for next Vancomycin Level to be drawn: 10/01 0700 Pharmacist Comments on Vancomycin Plan: Vancomycin dosing will take advantage of [employer] as a clinical decision support tool that uses Bayesian modeling to calculate individual patient's pharmacokinetic parameters and forecast the patient's drug concentration time course with the target goal AUC 24 range of 400 - 600 mg/L/hr.
[2022-09-30] MEDS: KCl 20 mEq in 0.45% Sod 20 MEQ/1,000 ML IV.SOLN 100 MEQ IVCONT (15:09)
[2022-09-30] MEDS: Norepinephrine Bitartrate/D5W 8 MG/250 ML PLAST..BAG 73.14 MG IV (17:19)
[2022-09-30] MEDS: Norepinephrine Bitartrate/D5W 8 MG/250 ML PLAST..BAG 60.42 MG IV (20:39)
[2022-09-30] MEDS: HYDROmorphone HCl 1 MG/ML SYRINGE IVPUSH (21:15)
[2022-09-30] MEDS: Acetaminophen Supp 650 MG SUPP.RECT PR (21:25)
[2022-10-01] VITALS (49 sets, daily range): BP systolic 92–143; BP diastolic 42–80; PULSE 61–107; RESP 13–98; TEMP 37.3–38.7; O2SAT 18–100; BMI 32.0
[2022-10-01] MEDS: Valproic Acid (as Sodium Salt) 500 MG in Dextrose 5 % 50 ML 55 MG IV ×5 (00:11→23:52)
[2022-10-01] MEDS: Norepinephrine Bitartrate/D5W 8 MG/250 ML PLAST..BAG 66.78 MG IV (00:11)
[2022-10-01] MEDS: KCl 20 mEq in 0.45% Sod 20 MEQ/1,000 ML IV.SOLN 100 MEQ IVCONT (00:17)
[2022-10-01] MEDS: Piperacillin Sodium/Tazobactam 4.5 GM in 0.9 % Sodium Chloride 100 ML IV ×4 (01:50→19:41)
[2022-10-01] MEDS: Enoxaparin Sodium 80 MG/0.8 ML SYRINGE SUBCUT ×2 (01:50→13:38)
[2022-10-01] MEDS: Norepinephrine Bitartrate/D5W 8 MG/250 ML PLAST..BAG 73.14 MG IV (03:24)
[2022-10-01 05:09] LABS: Hematocrit 27.7 % (37.0-47.0); Mean Corpuscular HGB Conc 28.9 g/dl (31.0-35.0); Mean Corpuscular Hemoglobin 28.4 pg (27.0-33.0); Mean Corpuscular Volume 98.2 fL (80.0-98.0); Mean Platelet Volume 9.8 fL (9.4-12.3); NRBC Pct Auto 2.5 /100WBC (0.0-0.2); Platelet Count 621 X10*3/uL (160-400); Red Blood Count 2.82 X10*6/uL (4.20-5.50); Red Cell Distribution Width 18.6 % (11.0-16.0); WBC ABN SCTR FOR CBC 1
[2022-10-01 05:11] LABS: VBG Base Excess -3.4 mmol/L; VBG HCO3 21 mmol/L (22-26); VBG pCO2 38 mmHg; VBG pH 7.35 (7.32-7.43); VBG pO2 47 mmHg
[2022-10-01 05:15] LABS: Venous Blood Gas Refer to POC result
[2022-10-01 05:16] LABS: White Blood Count 31.5 X10*3/uL (4.8-10.8)
[2022-10-01 05:38] LABS: Atypical Lymph Absolute Manual 0.3 x10*3/uL; Atypical Lymphs Percent Manual 1 % (0-6); Band Neutrophils Percent 6 % (3-5); Lymphocytes Absolute Manual 3.2 X10*3/uL (1.2-4.9); Lymphocytes Percent Manual 10 % (20-40); Metamyelocytes Absolute 0.6 X10*3/uL; Metamyelocytes Percent 2 %; Monocytes Absolute Manual 1.6 X10*3/uL (0.1-1.2); Monocytes Percent Manual 5 % (2-11); Neutrophils Absolute Manual 25.8 X10*3/uL (2.0-8.3); Neutrophils Percent Manual 76 % (45-73); Nucleated Red Blood Cells 2 /100WBC (0-0)
[2022-10-01 05:39] LABS: Hypochromasia 1+ (5-14) /OIF; Platelet Estimate INCREASED (NORMAL); Platelet Morphology Comment NORMAL; Polychromasia 2+ (3-5) /OIF; RBC Morphology NOTED
[2022-10-01 05:44] LABS: Alanine Aminotransferase 8 U/L (0-31); Albumin Level 2.3 g/dL (3.5-5.0); Alkaline Phosphatase 164 U/L (39-117); Anion Gap 10 (12-20); Aspartate Amino Transferase 33 U/L (5-31); Bilirubin Total 0.5 mg/dL (0.0-1.0); Blood Urea Nitrogen 12 mg/dL (9-16); Calcium 8.6 mg/dL (8.4-10.2); Carbon Dioxide 23 mmol/L (22-29); Chloride 108 mmol/L (96-108); Creatinine Clr Calc Pharmacy 82.3; Estimated Glomerular Filt Rate > 60; Glucose Random 121 mg/dL (60-115); Phosphorus 1.8 mg/dL (2.7-4.5); Potassium 4.1 mmol/L (3.3-5.1); Sodium 137 mmol/L (135-145); Total Protein 5.1 g/dL (6.5-8.0)
[2022-10-01] MEDS: Levothyroxine Sodium 100 MCG/5 ML VIAL 50 MCG IVPUSH (05:57)
[2022-10-01] MEDS: Norepinephrine Bitartrate/D5W 8 MG/250 ML PLAST..BAG 63.6 MG IV (06:25)
[2022-10-01] MEDS: Albumin Human 25 % 100 ML IV ×2 (07:09→08:11)
[2022-10-01] MEDS: Potassium Phosphate/NS 15 MMOL/250 ML PLAST..BAG 62.5 MMOL IV (07:09)
[2022-10-01 07:47] LABS: Vancomycin Trough 28.2 mcg/mL (10.0-20.0)
[2022-10-01] MEDS: Famotidine/PF 20 MG/2 ML VIAL IVPUSH ×2 (08:11→19:41)
[2022-10-01] MEDS: Albuterol/Iprat 2.5/0.5MG 3 ML AMPUL.NEB INHALE ×4 (08:18→19:10)
[2022-10-01] MEDS: Norepinephrine Bitartrate/D5W 8 MG/250 ML PLAST..BAG 54.06 MG IV (10:11)
[2022-10-01] MEDS: KCl 20 mEq in 0.45% Sod 20 MEQ/1,000 ML IV.SOLN 80 MEQ IVCONT (10:11)
--- NOTE | 2022-10-01 11:30 | MHC.CM.PN ---
Addendum entered by Madison Ahumada RN 10/01/22 12:15: NO GUARDIANSHIP ON CHART. REQUEST FOR COPY TO BE FAXED TO CASE MANAGEMENT Original Note: THIS GLOST PLACER SPOKE WITH GUARDIAN[facility] (QUINN [phone]) QUINN SAYS THAT [facility] HAS COPY OF GUARDIANSHIP CASE MANAGEMENT WILL LOOK FOR COPY ON UNIT AND IF NOT FOUND, WILL REQUEST. PATIENT IS REPORTEDLY BED BOUND BUT DOES GO TO THE [facility] DAILY VIA WHEELCHAIR. IMM 10/01 DISCUSSED, UNDERSTOOD, AND PLACED IN CHART QUINN ASKS THAT IMM RETURN WITH PATIENT TO [facility] CASE MANAGEMENT FOLLOWING FOR PATIENT'S RETURN
--- NOTE | 2022-10-01 11:36 | P.PNCC_ITS ---
Subjective Subjective Date of Service: 10/01/22 Interval History: and 62-year-old severely mentally compromised an institutionalized individual with chronic indwelling Randall and bed ridden with pressure sores at least 1 of which appeared cellulitic with a completely atelectatic left lung and I think it is a fair assumption that aspiration is playing a role in that also has under our observation obstructive sleep apnea in certain positions while sleeping she severely retracts the sternum and that was alleviated with a nasal trumpet and the with aggressive pulmonary toileting with respiratory therapy we re-expanded most of the left lung and with a chronic Randall in unequivocally the inner there was chemical evidence of a urinary tract infection Randall was changed to a laboratory equipment cleaner Randall and antibiotic coverage with vancomycin and piperacillin to cover aspiration at her nursing facility and the urinary tract and even potentially the cellulitic the open sores on her heels she is on a much reduced dose of Levophed but still some she is in sinus rhythm preserved LV function and of anything hyperdynamic Critical Care Time (minutes): 35 Physical Exam Vital Signs: Vital Signs: Last Vital Signs Temp 100.2 F 10/01/22 11:00 Pulse 69 10/01/22 11:17 Resp 98 H 10/01/22 11:17 BP 143/63 H 10/01/22 11:05 Pulse Ox 95 10/01/22 11:00 O2 Del Method Room Air 10/01/22 11:00 O2 Flow Rate 3 09/30/22 19:00 FiO2 21 10/01/22 08:00 BMI result Body Mass Index 32.0 she is awaken easily arousable but has no ability to communicate she just Rob able to move all 4 extremities cardiac by bedside echo at 80% ejection fraction no IVC distension bilateral end-expiratory wheezing abdomen is soft with no organomegaly wounds are dressed but there are bilateral pressure sores in the lower extremities more around he also ankles utilizing ox Amna CPAP she tolerates this and it course that over comes the upper airway obstruction Objective Data Labs 10/01/22 04:50 10/01/22 04:50 Labs: Laboratory Results - last 24 hr 10/01/22 10/01/22 10/01/22 04:50 04:50 04:50 WBC 31.5 H* RBC 2.82 L Hgb 8.0 L Hct 27.7 L MCV 98.2 H MCH 28.4 MCHC 28.9 L RDW 18.6 H Plt Count 621 H MPV 9.8 Absolute Nucleated RBC 0.780 H Nucleated RBC % (auto) 2.5 H Neutrophils % (Manual) 76 H Band Neutrophils % 6 H Lymphocytes % (Manual) 10 L Atypical Lymphs % (Man) 1 Monocytes % (Manual) 5 Metamyelocytes % 2 Abs Neuts (Manual) 25.8 H Lymphocytes # (Manual) 3.2 Atyp Lymphs # (Manual) 0.3 Monocytes # (Manual) 1.6 H Metamyelocytes # 0.6 Nucleated RBCs 2 H Platelet Estimate INCREASED Plt Morphology Comment NORMAL RBC Morphology NOTED Polychromasia 2+ (3-5) Hypochromasia 1+ (5-14) VBG pH VBG pCO2 VBG pO2 VBG HCO3 VBG O2 Saturation VBG Base Excess Sodium 137 Potassium 4.1 Chloride 108 Carbon Dioxide 23 Anion Gap 10 L BUN 12 Creatinine Cancelled 0.83 Estim Creat Clear Calc Cancelled 82.3 Estimated GFR Cancelled > 60 Random Glucose 121 H Calcium 8.6 Phosphorus 1.8 L Total Bilirubin 0.5 AST 33 H ALT 8 Alkaline Phosphatase 164 H Total Protein 5.1 L Albumin 2.3 L Vancomycin Trough 10/01/22 10/01/22 05:02 07:01 WBC RBC Hgb Hct MCV MCH MCHC RDW Plt Count MPV Absolute Nucleated RBC Nucleated RBC % (auto) Neutrophils % (Manual) Band Neutrophils % Lymphocytes % (Manual) Atypical Lymphs % (Man) Monocytes % (Manual) Metamyelocytes % Abs Neuts (Manual) Lymphocytes # (Manual) Atyp Lymphs # (Manual) Monocytes # (Manual) Metamyelocytes # Nucleated RBCs Platelet Estimate Plt Morphology Comment RBC Morphology Polychromasia Hypochromasia VBG pH 7.35 VBG pCO2 38 VBG pO2 47 VBG HCO3 21 L VBG O2 Saturation 75.0 VBG Base Excess -3.4 Sodium Potassium Chloride Carbon Dioxide Anion Gap BUN Creatinine Estim Creat Clear Calc Estimated GFR Random Glucose Calcium Phosphorus Total Bilirubin AST ALT Alkaline Phosphatase Total Protein Albumin Vancomycin Trough 28.2 H* Microbiology Microbiology Results: Microbiology 09/29/22 Unknown Urine Catheterized - Randall Catheter Urine Culture - Final 09/29/22 23:00 Heel, Left Gram Stain - Final 09/29/22 23:00 Heel, Left Routine Culture - Preliminary Culture in progress. 09/29/22 23:55 Sputum - Suctioned Gram Stain - Final 09/29/22 23:55 Sputum - Suctioned Sputum Culture - Preliminary Culture in progress. 09/29/22 14:08 Blood - Venous Blood Culture - Preliminary Prelim: GPC Gram Stain only 09/29/22 14:08 Blood - Venous Blood Culture - Preliminary No growth after 24 hours. Progress Note: A&P Assessment and plan (1) Delirium due to another medical condition, acute, hyperactive: Status: Acute (2) Pressure sore on ankle: Status: Acute (3) Aspiration into respiratory tract: Status: Acute (4) Atelectasis of left lung: Status: Acute (5) Sepsis: Status: Acute (6) UTI (urinary tract infection): Status: Acute (7) Pleural effusion on left: Status: Acute (8) COVID: Status: Acute Plan plan is to keep antibiotics as above as she is clinically responding sample from the urine with the old Randall of no value its probable contamination the sputum also was a worse as well not relies will but will see what grows from the wound in the lower extremity Quality Stroke Does the patient have a stroke diagnosis?: No VTE Prior VTE?: No VTE Risk Level:: Medical - moderate - high VTE Device Contraindication: N/A - Device Ordered VTE Drug Contraindication: N/A - Med Ordered
[2022-10-01] MEDS: Norepinephrine Bitartrate/D5W 8 MG/250 ML PLAST..BAG 44.52 MG IV (15:10)
[2022-10-01 19:36] LABS: Vancomycin Random 23.6 mcg/mL (15-20)
[2022-10-01] MEDS: Acetaminophen Supp 650 MG SUPP.RECT PR (19:41)
--- NOTE | 2022-10-01 19:45 | HE.PHANOTE ---
RE: caryl Neville on 10/01 @1900 came back at 23.6; pended new dose (1000mg Q24H) for tomorrow depending on trough level that will be drawn 10/02 @0700.
[2022-10-01] MEDS: Norepinephrine Bitartrate/D5W 8 MG/250 ML PLAST..BAG 31.8 MG IV (20:52)
[2022-10-02] VITALS (45 sets, daily range): BP systolic 87–159; BP diastolic 36–93; PULSE 56–124; RESP 14–33; TEMP 37.2–37.9; O2SAT 92–100; BMI 32.0
[2022-10-02] MEDS: Piperacillin Sodium/Tazobactam 4.5 GM in 0.9 % Sodium Chloride 100 ML IV ×4 (02:00→20:20)
[2022-10-02] MEDS: Enoxaparin Sodium 80 MG/0.8 ML SYRINGE SUBCUT ×2 (02:00→14:01)
[2022-10-02 04:32] LABS: Hematocrit 24.7 % (37.0-47.0); Hemoglobin 7.3 g/dl (12.0-16.0); Mean Corpuscular HGB Conc 29.6 g/dl (31.0-35.0); Mean Corpuscular Hemoglobin 28.2 pg (27.0-33.0); Mean Corpuscular Volume 95.4 fL (80.0-98.0); Mean Platelet Volume 9.2 fL (9.4-12.3); NRBC Pct Auto 0.8 /100WBC (0.0-0.2); Platelet Count 384 X10*3/uL (160-400); Red Blood Count 2.59 X10*6/uL (4.20-5.50); Red Cell Distribution Width 18.9 % (11.0-16.0); White Blood Count 20.3 X10*3/uL (4.8-10.8)
[2022-10-02 04:44] LABS: VBG Base Excess 0.7 mmol/L; VBG HCO3 24 mmol/L (22-26); VBG pCO2 33 mmHg; VBG pH 7.46 (7.32-7.43); VBG pO2 33 mmHg
[2022-10-02 04:51] LABS: Band Neutrophils Percent 2 % (3-5); Lymphocytes Absolute Manual 3.9 X10*3/uL (1.2-4.9); Lymphocytes Percent Manual 19 % (20-40); Monocytes Absolute Manual 0.8 X10*3/uL (0.1-1.2); Monocytes Percent Manual 4 % (2-11); Myelocytes Absolute 0.2 X10*/uL; Myelocytes Percent 1 %; Neutrophils Absolute Manual 15.4 X10*3/uL (2.0-8.3); Neutrophils Percent Manual 74 % (45-73); Nucleated Red Blood Cells 1 /100WBC (0-0)
[2022-10-02 04:52] LABS: Hypochromasia 1+ (5-14) /OIF; Platelet Estimate NORMAL (NORMAL); Platelet Morphology Comment NORMAL; Polychromasia 1+ (0-2) /OIF; RBC Morphology NOTED
[2022-10-02 04:55] LABS: Alanine Aminotransferase 5 U/L (0-31); Albumin Level 2.4 g/dL (3.5-5.0); Alkaline Phosphatase 117 U/L (39-117); Anion Gap 10 (12-20); Aspartate Amino Transferase 16 U/L (5-31); Bilirubin Total 0.4 mg/dL (0.0-1.0); Blood Urea Nitrogen 9 mg/dL (9-16); Calcium 8.8 mg/dL (8.4-10.2); Carbon Dioxide 24 mmol/L (22-29); Chloride 114 mmol/L (96-108); Creatinine Clr Calc Pharmacy 89.2; Estimated Glomerular Filt Rate > 60; Glucose Random 99 mg/dL (60-115); Potassium 3.7 mmol/L (3.3-5.1); Sodium 144 mmol/L (135-145); Total Protein 4.9 g/dL (6.5-8.0)
[2022-10-02 05:10] LABS: Vancomycin Trough 18.7 mcg/mL (10.0-20.0)
[2022-10-02 05:29] LABS: Venous Blood Gas Refer to POC result
[2022-10-02] MEDS: Norepinephrine Bitartrate/D5W 8 MG/250 ML PLAST..BAG 19.08 MG IV (05:40)
[2022-10-02] MEDS: Valproic Acid (as Sodium Salt) 500 MG in Dextrose 5 % 50 ML 55 MG IV ×2 (05:42→11:00)
[2022-10-02] MEDS: Levothyroxine Sodium 100 MCG/5 ML VIAL 50 MCG IVPUSH (05:42)
--- NOTE | 2022-10-02 06:17 | HE.PHANOTE ---
Vancomycin Dosing Patient level is no longer supratherapeutic. Will restart patient on vancomycin 1000 mg Q24H. Expected AUC is 577 with a trough of 18.5. Will get another level in 24 hours to make sure patient does not go supratherapetuic again. Jo Ann Almeida, JannetteD
[2022-10-02] MEDS: Albumin Human 25 % 100 ML IV ×2 (07:22→08:29)
[2022-10-02] MEDS: Albuterol/Iprat 2.5/0.5MG 3 ML AMPUL.NEB INHALE ×4 (08:27→21:20)
[2022-10-02] MEDS: vancomycin HCL 1,000 MG in 0.9 % Sodium Chloride 250 ML 270 MG IV (08:29)
[2022-10-02] MEDS: Famotidine/PF 20 MG/2 ML VIAL IVPUSH (08:29)
[2022-10-02 08:45] LABS: OBS Int Ctl Valid YES; OBS1 NEGATIVE (NEGATIVE)
--- NOTE | 2022-10-02 09:03 | PC.NURSE ---
Pt awake, alert, eating breakfast. Medication administered per EMAR. Patient reporting 8/10 generalized pain. 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 Pt educated on importance of physical and subjective assessment. Patient not responding at this time. MD aware.
--- NOTE | 2022-10-02 10:33 | P.PNCC_ITS ---
Subjective Subjective Date of Service: 10/02/22 Interval History: 62-year-old lady with underlying history developmental disorder, schizoaffective disorder, pulmonary embolism on anticoagulation, skilled facility resident admitted on 09/29/2022 with sepsis with urinary source requiring vasopressor support. Cultures negative to date. Her mental status has baseline per her guardian. No events overnight. Titrated off Levophed drip. Critical Care Time (minutes): 45 Physical Exam Vital Signs: Vital Signs: Last Vital Signs Temp 99.1 F 10/02/22 10:00 Pulse 105 H 10/02/22 10:03 Resp 21 H 10/02/22 10:00 BP 97/66 10/02/22 10:03 Pulse Ox 96 10/02/22 10:00 O2 Del Method Room Air 10/02/22 10:00 O2 Flow Rate 3 09/30/22 19:00 FiO2 21 10/02/22 07:00 BMI result Body Mass Index 32.0 Const: General: no acute distress, alert, awake and confusion ( Baseline) Nutritional Appearance: Edematous Orientation/consciousness: confusion ( Baseline) Eyes: Sclerae: sclerae normal EOM: EOMs intact bilaterally Neck: Neck: Yes no lymphadenopathy, Yes trachea midline and Yes supple Resp: Effort & Inspection: normal respiratory effort and no respiratory distress Auscultation: clear to auscultation bilaterally Cardio: Rate: tachycardic Rhythm: regular rhythm Heart sounds: no gallops, no murmurs and no rubs GI: Palpation (GI): Soft to palpation and Other GI palpation findings present ( Nontender) Auscultation: normal bowel sounds Neuro: General: confusion ( Baseline) Extrem: General: Yes no pedal edema, No clubbing and No cyanosis Objective Data Labs 10/02/22 04:20 10/02/22 04:20 Labs: Laboratory Results - last 24 hr 09/29/22 10/01/22 10/02/22 23:33 19:05 04:20 WBC RBC Hgb Hct MCV MCH MCHC RDW Plt Count MPV Immature Gran % (Auto) Neut % (Auto) Lymph % (Auto) [place] % (Auto) Eos % (Auto) Baso % (Auto) Lymph # (Auto) [place] # (Auto) Eos # (Auto) Baso # (Auto) Abs Immat Gran (auto) Absolute Neuts (auto) Absolute Nucleated RBC Nucleated RBC % (auto) Neutrophils % (Manual) Band Neutrophils % Lymphocytes % (Manual) Monocytes % (Manual) Myelocytes % Abs Neuts (Manual) Lymphocytes # (Manual) Monocytes # (Manual) Myelocytes # Nucleated RBCs Platelet Estimate Plt Morphology Comment RBC Morphology Polychromasia Hypochromasia Smear Path Review SEE NOTE VBG pH VBG pCO2 VBG pO2 VBG HCO3 VBG O2 Saturation VBG Base Excess Sodium Potassium Chloride Carbon Dioxide Anion Gap BUN Creatinine Cancelled Estim Creat Clear Calc Cancelled Estimated GFR Cancelled Random Glucose Calcium Total Bilirubin AST ALT Alkaline Phosphatase Total Protein Albumin Stool Occult Blood Vancomycin Trough Random Vancomycin 23.6 H 10/02/22 10/02/22 10/02/22 04:20 04:20 04:20 WBC 20.3 H RBC 2.59 L Hgb 7.3 L Hct 24.7 L MCV 95.4 MCH 28.2 MCHC 29.6 L RDW 18.9 H Plt Count 384 D MPV 9.2 L Immature Gran % (Auto) Cancelled Neut % (Auto) Cancelled Lymph % (Auto) Cancelled [place] % (Auto) Cancelled Eos % (Auto) Cancelled Baso % (Auto) Cancelled Lymph # (Auto) Cancelled [place] # (Auto) Cancelled Eos # (Auto) Cancelled Baso # (Auto) Cancelled Abs Immat Gran (auto) Cancelled Absolute Neuts (auto) Cancelled Absolute Nucleated RBC 0.160 H Nucleated RBC % (auto) 0.8 H Neutrophils % (Manual) 74 H Band Neutrophils % 2 L Lymphocytes % (Manual) 19 L Monocytes % (Manual) 4 Myelocytes % 1 Abs Neuts (Manual) 15.4 H Lymphocytes # (Manual) 3.9 Monocytes # (Manual) 0.8 Myelocytes # 0.2 Nucleated RBCs 1 H Platelet Estimate NORMAL Plt Morphology Comment NORMAL RBC Morphology NOTED Polychromasia 1+ (0-2) Hypochromasia 1+ (5-14) Smear Path Review VBG pH VBG pCO2 VBG pO2 VBG HCO3 VBG O2 Saturation VBG Base Excess Sodium 144 Potassium 3.7 Chloride 114 H Carbon Dioxide 24 Anion Gap 10 L BUN 9 Creatinine 0.78 Estim Creat Clear Calc 89.2 Estimated GFR > 60 Random Glucose 99 Calcium 8.8 Total Bilirubin 0.4 AST 16 ALT 5 Alkaline Phosphatase 117 Total Protein 4.9 L Albumin 2.4 L Stool Occult Blood Vancomycin Trough 18.7 Random Vancomycin 10/02/22 10/02/22 04:35 08:26 WBC RBC Hgb Hct MCV MCH MCHC RDW Plt Count MPV Immature Gran % (Auto) Neut % (Auto) Lymph % (Auto) [place] % (Auto) Eos % (Auto) Baso % (Auto) Lymph # (Auto) [place] # (Auto) Eos # (Auto) Baso # (Auto) Abs Immat Gran (auto) Absolute Neuts (auto) Absolute Nucleated RBC Nucleated RBC % (auto) Neutrophils % (Manual) Band Neutrophils % Lymphocytes % (Manual) Monocytes % (Manual) Myelocytes % Abs Neuts (Manual) Lymphocytes # (Manual) Monocytes # (Manual) Myelocytes # Nucleated RBCs Platelet Estimate Plt Morphology Comment RBC Morphology Polychromasia Hypochromasia Smear Path Review VBG pH 7.46 H VBG pCO2 33 VBG pO2 33 VBG HCO3 24 VBG O2 Saturation 50.0 VBG Base Excess 0.7 Sodium Potassium Chloride Carbon Dioxide Anion Gap BUN Creatinine Estim Creat Clear Calc Estimated GFR Random Glucose Calcium Total Bilirubin AST ALT Alkaline Phosphatase Total Protein Albumin Stool Occult Blood NEGATIVE Vancomycin Trough Random Vancomycin Microbiology Microbiology Results: Microbiology 09/29/22 23:00 Heel, Left Gram Stain - Final 09/29/22 23:00 Heel, Left Routine Culture - Preliminary Culture in progress. 09/29/22 23:55 Sputum - Suctioned Gram Stain - Final 09/29/22 23:55 Sputum - Suctioned Sputum Culture - Final 09/29/22 14:08 Blood - Venous Blood Culture - Preliminary Coag negative Staphylococcus 09/29/22 14:08 Blood - Venous Blood Culture - Preliminary No growth after 48 hours. 09/29/22 Unknown Urine Catheterized - Randall Catheter Urine Culture - Final Progress Note: A&P Assessment and plan (1) UTI (urinary tract infection): Status: Acute (2) Delirium due to another medical condition, acute, hyperactive: Status: Acute (3) Pulmonary embolism: Status: Acute (4) Hx of salvage determiner use of blood thinners: Status: Acute (5) Schizoaffective disorder: Status: Acute Plan Assessment: 62-year-old lady admitted with UTI sepsis this initially requiring vasopressor support, now titrated off. Mental status is at baseline. Plan: Neuro: Underlying developmental delay and schizoaffective disorder, continues on valproic acid. Mental status is at baseline (intermittent agitation / essentially no communication) per guardian. Cardiac: Titrated off pressor support. Pulmonary: No acute issues. Chronic anticoagulation for pulmonary embolism. Renal: No acute issues. Endo: No acute issues. GI: No acute issues. Pending swallow evaluation. ID: UTI with cultures negative to date. Continue broad-spectrum antibiotics, day 4/7. Heme/Onc: No acute issues. Psych: No acute issues. Miscellaneous: No acute issues. Prophylaxis: full-dose Lovenox Diet: pending swallow evaluation Critical care time spent: 45 minutes Quality Stroke Does the patient have a stroke diagnosis?: No VTE Prior VTE?: No VTE Risk Level:: Medical - moderate - high VTE Device Contraindication: N/A - Device Ordered VTE Drug Contraindication: N/A - Med Ordered
--- NOTE | 2022-10-02 10:53 | PC.NURSE ---
Urine leaking large amount of urine around Cantu cath. Cantu balloon deflated, cantu advanced and balloon re-inflated with 10cc. Cantu continued to leak. MD notified. VO Dr Silva switch cantu out with #20F. Cantu removed without complication and #20F reinserted without complication using sterile technique. Immediate 150cc pale yellow output drained. MD aware. Patient resting comfortably with eyes closed.
--- NOTE | 2022-10-02 11:43 | MHC.CLN ---
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 PRECAUTIONS RECOMMEND WHEN DIET ADVANCES, PT WILL REQUIRE INCREASED PROTEIN TO PROMOTE WOUND HEALING RECOMMEND ADDING ENSURE BID AND GELATEIN TO PROVIDE 1020KCALS, 80G PROTEIN WITH 100% ACCEPTANCE MONITOR PO INTAKE CLOSELY FOLLOWING WITH TEAM SEE ALSO FULL CLINICAL NUTRITION ASSESSMENT
--- NOTE | 2022-10-02 14:10 | MHC.SL.SWA ---
Speech Pathologist Impression: Risk of Aspiration Due to: History of Pneumonia Reduced Cognition Dysphasia Diet Status: Liquid Consistency and Strategies for Safe Swallow: Liquid Intake Recommendation: [place] Thick Liquid Intake Strategies: Small Sips Solid Food Consistency: Dietary Recommendations: Pureed (NDD1) Additional Modifications to Solid Foods: Patient will need 1-1 feed. Provide liquids through controlled straw sips and interrupt chain gulping of liquid. Provide food in small bites, pace administration so that patient does not rapidly consume food. Oral Medication Intake: Crushed with Puree Please contact the pharmacy regarding appropriate crushable or liquid drug formulations that are available whenever modified delivery is recommended. Compensatory Strategies and Precautions to be Taken for Safe Swallow: Sitting Upright (90 deg) Liquids from Cup Liquids from Straw Small Bites and Sips Rate of Ingestion Change Supervision While Eating and Drinking for Safe Swallow: Total Supervision (1:1) Foods to Avoid: Sticky or congealed purees, mixed consistencies. Swallowing Recommended Treatments: Compens. Strategy Educat. Recommendation for Speech: Inpatient Speech Therapy Comment: Patient presents with risk of aspiration due to observed tendency of rapid consumption of liquids and solids, maladaptive lingual pattern during oral phase to propel bolus. Recommend start diet of PUREE (NDD1-reportedly patient's baseline) and NECTAR THICK liquids with pills crushed in puree. Patient evidences preference/habit of drinking by straw, but drinks too rapidly/chain gulps, needing full supervision/control of straw sips if using (interrupt sips to control intake). Patient also needs controlled presentation of purees as patient is inclined to eat rapidly. , RN advised of recommendations in person, RD notified by secure text. FIELD REPRESENTATIVE/HEALTH EDUCATION will continue to follow for toleration, possible upgrade of diet consistencies. Frequency/Duration: Date Range for Service Req: Timeline to reassess: Business Controller Clinican/Clinical Fellow: No Supervisory Statement: I have reviewed and agree with the student/clinical fellow's documentation: N/A Speech Language Pathologist: Olimpia Ames M.A., CCC-FIELD REPRESENTATIVE/HEALTH EDUCATION
[2022-10-02] MEDS: QUEtiapine Fumarate 50 MG TABLET PO ×2 (14:37→20:21)
--- NOTE | 2022-10-02 17:10 | HO.WOUNDCONS ---
History of Present Illness Data of Consult Service Date: 10/02/22 Requesting physician: Winston Reza Primary Care Provider: Ondina Sewell MD [facility] Reason for consult: pressure ulcers [id number]: 62-year-old female who lives in a facility and is dependent on care who became hypotensive with fever and was brought to the hospital. She was found to have sepsis. Urinary tract infection was identified as the source. Also found out pulmonary embolism. Right heel ulcers were identified. X-ray done, read as negative for osteomyelitis. Asked to provide recommendations for treatment of such. None of these ulcers are thought to be hospital acquired but rather present on admission based on history, size and evolution of pressure ulcers in general. Review of Systems Review of Systems: Yes Unobtainable due to mental condition [facility] Medical History (Updated 10/02/22 @ 17:22 by ANDREA Salmeron) Chronic kidney disease, stage 3 COVID Hx of snf use of blood thinners Hypertension Intellectual disability Pressure sore on ankle Pulmonary embolism Schizoaffective disorder Social History Household Members: Unknown / Unable to assess Housing: Unknown / Unable to assess Unable to assess alcohol history related to: Unable to respond Patient Tobacco Use Status: Tobacco use Unknown Use of substances other than those prescribed or required for medical reasons: Unknown Currently Displaying Signs/Symptoms of Drug Intoxication Withdrawal: No Advance Directives: No Advance Directives Information Provided: No Recently lost weight without trying: Unsure Patient : No service: No Current occupational status: disabled Meds Allergies Allergy/AdvReac Type Severity Reaction Status Date / Time Unable to Assess Allergy Verified 01/02/22 11:20 Active Medications: Current Medications Acetaminophen (Acetaminophen Supp 650 Mg Supp.Rect) 650 mg NV Q6H PRN PRN Reason: Fever Last Admin: 10/01/22 19:41 Dose: 650 mg Albuterol/Ipratropium (Albuterol/Iprat 2.5/0.5mg 3 Ml Ampul.Neb) 3 ml INHALE RQ4H WHILE AWAKE [facility] Last Admin: 10/02/22 15:01 Dose: 3 ml Divalproex Sodium (Divalproex Sodium 500 Mg Tablet.Dr) 1,000 mg PO BID [facility] Enoxaparin Sodium (Enoxaparin Sodium 80 Mg/0.8 Ml Syringe) 80 mg 1 mg/kg (80 mg) SUBCUT Q12H [facility] Last Admin: 10/02/22 14:01 Dose: 80 mg Piperacillin Sod/Tazobactam (Sod 4.5 gm/ Sodium Chloride) 100 mls @ 200 mls/hr IV Q6H [facility] Last Infusion: 10/02/22 14:37 Dose: Infused Norepinephrine Bitartrate (Levophed) 8 mg in 250 mls @ 0 mls/hr IV .Q0M [facility]; Protocol Last Titration: 10/02/22 16:47 Dose: 0.09 mcg/kg/min, 14.31 mls/hr Vancomycin HCl 1,000 mg/ (Sodium Chloride) 270 mls @ 270 mls/hr IV Q24H [facility] Last Infusion: 10/02/22 09:44 Dose: Infused Lactulose (Lactulose 20 Gm/30 Ml Solution) 20 gm PO BID [facility] Levothyroxine Sodium (Levothyroxine Sodium 100 Mcg Tablet) 100 mcg PO DAILY@0600 [facility] Omeprazole (Omeprazole 20 Mg/10 Ml Susp.Recon) 40 mg PO DAILY@0630 [facility] Pharmacy Consult (Consult Rx Vancomycin Dosing) 1 each MISCELLANE DAILY PRN PRN Reason: Consult order Quetiapine Fumarate (Quetiapine Fumarate 50 Mg Tablet) 50 mg PO TID [facility] Last Admin: 10/02/22 14:37 Dose: 50 mg Home Medications Medication Instructions Recorded Confirmed Last Taken Type acetaminophen 500 mg tablet 1,000 mg PO TID PRN Pain 01/02/22 09/29/22 Unknown History apixaban 2.5 mg tablet (Eliquis) 2.5 mg PO BID 01/02/22 09/29/22 Unknown History atorvastatin 10 mg tablet 10 mg PO BEDTIME 01/02/22 09/29/22 Unknown History divalproex 125 mg capsule,delayed 1,000 mg PO BID 01/02/22 09/29/22 Unknown History release sprinkle lactulose 10 gram/15 mL oral 20 g PO BID 01/02/22 09/29/22 Unknown History solution (Enulose) levothyroxine 100 mcg capsule 100 mcg PO DAILY 01/02/22 09/29/22 Unknown History mirtazapine 7.5 mg tablet 7.5 mg PO BEDTIME 01/02/22 09/29/22 Unknown History quetiapine 50 mg tablet 50 mg PO TID 01/02/22 09/29/22 Unknown History trazodone 100 mg tablet 200 mg PO BID 01/02/22 09/29/22 Unknown History ascorbic acid (vitamin C) 1,000 mg 1,000 mg PO BID 09/29/22 09/29/22 Unknown History tablet (Vitamin C) ascorbic acid (vitamin C) 250 mg 250 mg PO BID 09/29/22 09/29/22 Unknown History tablet (Vitamin C) bisacodyl 10 mg rectal suppository 10 mg NV DAILY PRN Constipation 09/29/22 09/29/22 Unknown History tramadol 50 mg tablet 50 mg PO BID PRN Pain 09/29/22 09/29/22 Unknown History Physical Exam Vital Signs and Narrative: Vital Signs: Last Vital Signs Temp 99.9 F 10/02/22 16:00 Pulse 117 H 10/02/22 17:00 Resp 23 H 10/02/22 17:00 BP 110/55 L 10/02/22 17:00 Pulse Ox 95 10/02/22 17:00 O2 Del Method Room Air 10/02/22 17:00 O2 Flow Rate 3 09/30/22 19:00 FiO2 21 10/02/22 07:00 BMI result Body Mass Index 32.0 She has a left 5th metatarsal ulcer which is covered in dry, stable eschar and does not appear to be draining. It isn't associated with erythema or edema. This areas open to air. Regarding the calcaneus ulcer on the left foot, it appears that either wet to dry or dry clean dressings are being utilized as the primary dressing. In comparison to the photographs on chart, there is improvement in the purulence and slough the appearance of the left calcaneus. I do not see any record of a bedside debridement. The right calcaneus is ecchymotic with deep soft tissue injury which might also stand to be debrided if her vascular situation allows. It is draining and macerated as well. It looks as if she tends to lay on her right side. In turn, the right lateral malleolus shows unstageable pressure injury, darkened non blanchable tissue. Interestingly, her popliteal fossa ulcer on her right leg might be as a result of pressure from her left knee given bilateral lower extremity contracture. This wound is macerated around the edges from abdominal pad placement. See recommendations. There are some signs of granulation, however, and there does not appear to be gross infection or cellulitis by way of erythema, warmth or streaking. I attempted to look at the patient's coccygeal ulcer but was unable to do this independently and also peel back the Allevyn foam dressing. Pictures indicate that this at least a stage II or 3 ulcer. Results Labs 10/02/22 04:20 10/02/22 04:20 Labs: Laboratory Results - last 24 hr 09/29/22 10/01/22 10/02/22 23:33 19:05 04:20 MCV MCH MCHC RDW Plt Count MPV Immature Gran % (Auto) Neut % (Auto) Lymph % (Auto) [place] % (Auto) Eos % (Auto) Baso % (Auto) Lymph # (Auto) [place] # (Auto) Eos # (Auto) Baso # (Auto) Abs Immat Gran (auto) Absolute Neuts (auto) Absolute Nucleated RBC Nucleated RBC % (auto) Neutrophils % (Manual) Band Neutrophils % Lymphocytes % (Manual) Monocytes % (Manual) Myelocytes % Abs Neuts (Manual) Lymphocytes # (Manual) Monocytes # (Manual) Myelocytes # Nucleated RBCs Platelet Estimate Plt Morphology Comment RBC Morphology Polychromasia Hypochromasia Smear Path Review SEE NOTE VBG pH VBG pCO2 VBG pO2 VBG HCO3 VBG O2 Saturation VBG Base Excess Anion Gap Estim Creat Clear Calc Cancelled Estimated GFR Cancelled Random Glucose Calcium Total Bilirubin AST ALT Alkaline Phosphatase Total Protein Albumin Stool Occult Blood Vancomycin Trough Random Vancomycin 23.6 H 10/02/22 10/02/22 10/02/22 04:20 04:20 04:20 MCV 95.4 MCH 28.2 MCHC 29.6 L RDW 18.9 H Plt Count 384 D MPV 9.2 L Immature Gran % (Auto) Cancelled Neut % (Auto) Cancelled Lymph % (Auto) Cancelled [place] % (Auto) Cancelled Eos % (Auto) Cancelled Baso % (Auto) Cancelled Lymph # (Auto) Cancelled [place] # (Auto) Cancelled Eos # (Auto) Cancelled Baso # (Auto) Cancelled Abs Immat Gran (auto) Cancelled Absolute Neuts (auto) Cancelled Absolute Nucleated RBC 0.160 H Nucleated RBC % (auto) 0.8 H Neutrophils % (Manual) 74 H Band Neutrophils % 2 L Lymphocytes % (Manual) 19 L Monocytes % (Manual) 4 Myelocytes % 1 Abs Neuts (Manual) 15.4 H Lymphocytes # (Manual) 3.9 Monocytes # (Manual) 0.8 Myelocytes # 0.2 Nucleated RBCs 1 H Platelet Estimate NORMAL Plt Morphology Comment NORMAL RBC Morphology NOTED Polychromasia 1+ (0-2) Hypochromasia 1+ (5-14) Smear Path Review VBG pH VBG pCO2 VBG pO2 VBG HCO3 VBG O2 Saturation VBG Base Excess Anion Gap 10 L Estim Creat Clear Calc 89.2 Estimated GFR > 60 Random Glucose 99 Calcium 8.8 Total Bilirubin 0.4 AST 16 ALT 5 Alkaline Phosphatase 117 Total Protein 4.9 L Albumin 2.4 L Stool Occult Blood Vancomycin Trough 18.7 Random Vancomycin 10/02/22 10/02/22 04:35 08:26 MCV MCH MCHC RDW Plt Count MPV Immature Gran % (Auto) Neut % (Auto) Lymph % (Auto) [place] % (Auto) Eos % (Auto) Baso % (Auto) Lymph # (Auto) [place] # (Auto) Eos # (Auto) Baso # (Auto) Abs Immat Gran (auto) Absolute Neuts (auto) Absolute Nucleated RBC Nucleated RBC % (auto) Neutrophils % (Manual) Band Neutrophils % Lymphocytes % (Manual) Monocytes % (Manual) Myelocytes % Abs Neuts (Manual) Lymphocytes # (Manual) Monocytes # (Manual) Myelocytes # Nucleated RBCs Platelet Estimate Plt Morphology Comment RBC Morphology Polychromasia Hypochromasia Smear Path Review VBG pH 7.46 H VBG pCO2 33 VBG pO2 33 VBG HCO3 24 VBG O2 Saturation 50.0 VBG Base Excess 0.7 Anion Gap Estim Creat Clear Calc Estimated GFR Random Glucose Calcium Total Bilirubin AST ALT Alkaline Phosphatase Total Protein Albumin Stool Occult Blood NEGATIVE Vancomycin Trough Random Vancomycin Assessment and Plan (1) Pressure injury of deep tissue of right heel: Status: Acute (2) Pressure ulcer of right leg, stage 3: Status: Acute (3) Pressure injury of left heel, stage 3: Status: Acute Plan 62-year-old female who is dependent on care at a facility and became septic requiring ICU surveillance in the setting of pulmonary embolism. She is nonambulatory and has lower extremity contracture that inhibit mobility. In turn she has non hospital-acquired pressure ulcers as described above. With suggest that the priority of ulcers be directed towards the posterior right popliteal fossa for which maceration is ensuing. This is the most proximal and possibly most life-threatening ulcer which if worsens could be detrimental. Use zinc oxide to the periwound and discontinue abdominal pads for drainage management. Apply silver alginate cut to fit for this open area and change it every 48 hours. Silver alginate for the bilateral calcaneus ulcers is also appropriate for drainage management along with continued use of PUPP boots. Betadine paint to the lateral right ankle eschar is suggested. In the wound clinic, we tend to avoid foam border dressings for coccygeal ulceration but in the setting of unclear urinary and bowel history, will defer to ICU staff but might suggest that silver alginate cut to fit as the primary dressing would be preferential given moisture harboring associated with foam dressings. Time Spent With Patient Time: Total time managing care of this patient today ____ minutes.
[2022-10-02] MEDS: Divalproex Sodium 500 MG TABLET.DR 1000 MG PO (20:20)
[2022-10-02] MEDS: Lactulose 20 GM/30 ML SOLUTION PO (20:21)
[2022-10-02] MEDS: Norepinephrine Bitartrate/D5W 8 MG/250 ML PLAST..BAG 27.03 MG IV (22:20)
[2022-10-03] VITALS (37 sets, daily range): BP systolic 91–166; BP diastolic 41–71; PULSE 59–117; RESP 15–28; TEMP 36.1–37.1; O2SAT 94–99; BMI 33.8
[2022-10-03] MEDS: Piperacillin Sodium/Tazobactam 4.5 GM in 0.9 % Sodium Chloride 100 ML IV ×4 (02:09→20:20)
[2022-10-03] MEDS: Enoxaparin Sodium 80 MG/0.8 ML SYRINGE SUBCUT (02:09)
[2022-10-03 05:00] LABS: VBG Base Excess 0.5 mmol/L; VBG HCO3 24 mmol/L (22-26); VBG pCO2 35 mmHg; VBG pH 7.44 (7.32-7.43); VBG pO2 41 mmHg
[2022-10-03 05:09] LABS: Venous Blood Gas Refer to POC result
[2022-10-03 05:20] LABS: Hematocrit 23.7 % (37.0-47.0); Mean Corpuscular HGB Conc 27.8 g/dl (31.0-35.0); Mean Corpuscular Hemoglobin 27.3 pg (27.0-33.0); Mean Corpuscular Volume 97.9 fL (80.0-98.0); Mean Platelet Volume 9.6 fL (9.4-12.3); NRBC Pct Auto 0.8 /100WBC (0.0-0.2); Platelet Count 276 X10*3/uL (160-400); Red Blood Count 2.42 X10*6/uL (4.20-5.50); Red Cell Distribution Width 19.7 % (11.0-16.0); White Blood Count 17.2 X10*3/uL (4.8-10.8)
[2022-10-03 05:24] LABS: Hemoglobin 6.6 g/dl (12.0-16.0)
[2022-10-03] MEDS: Levothyroxine Sodium 100 MCG TABLET PO (05:44)
[2022-10-03 05:47] LABS: Albumin Level 2.7 g/dL (3.5-5.0); Anion Gap 13 (12-20); Blood Urea Nitrogen 7 mg/dL (9-16); Carbon Dioxide 22 mmol/L (22-29); Chloride 118 mmol/L (96-108); Creatinine Clr Calc Pharmacy 88.3; Estimated Glomerular Filt Rate > 60; Glucose Random 111 mg/dL (60-115); Magnesium 1.7 mg/dL (1.6-2.6); Phosphorus 2.2 mg/dL (2.7-4.5); Sodium 150 mmol/L (135-145)
[2022-10-03 06:03] LABS: Band Neutrophils Percent 2 % (3-5); Lymphocytes Absolute Manual 3.3 X10*3/uL (1.2-4.9); Lymphocytes Percent Manual 19 % (20-40); Metamyelocytes Absolute 0.3 X10*3/uL; Metamyelocytes Percent 2 %; Monocytes Absolute Manual 0.3 X10*3/uL (0.1-1.2); Monocytes Percent Manual 2 % (2-11); Neutrophils Absolute Manual 13.2 X10*3/uL (2.0-8.3); Neutrophils Percent Manual 75 % (45-73); Nucleated Red Blood Cells 1 /100WBC (0-0)
[2022-10-03 06:05] LABS: Hypochromasia 1+ (5-14) /OIF; Platelet Estimate NORMAL (NORMAL); Platelet Morphology Comment NORMAL; Polychromasia 1+ (0-2) /OIF; RBC Morphology NOTED; Target Cells 1+ (5-14) /OIF
[2022-10-03] MEDS: Dextrose 5 % 1,000 ML 75 ML IVCONT (06:49)
[2022-10-03] MEDS: Albumin Human 25 % 100 ML IV (08:34)
[2022-10-03] MEDS: Divalproex Sodium 500 MG TABLET.DR 1000 MG PO (08:35)
[2022-10-03] MEDS: Potassium Phosphate/NS 15 MMOL/250 ML PLAST..BAG 62.5 MMOL IV ×2 (08:35→14:00)
[2022-10-03] MEDS: vancomycin HCL 1,000 MG in 0.9 % Sodium Chloride 250 ML 270 MG IV (08:35)
[2022-10-03] MEDS: QUEtiapine Fumarate 50 MG TABLET PO ×3 (08:35→20:20)
[2022-10-03] MEDS: Lactulose 20 GM/30 ML SOLUTION PO (08:36)
[2022-10-03] MEDS: Zinc Oxide 20% Ointment 28.35 GM TUBE 1 APPL TOPICAL (08:36)
[2022-10-03 09:28] LABS: Vancomycin Random 16.7 mcg/mL (15-20)
--- NOTE | 2022-10-03 11:02 | MHC.SL.DTX ---
Dysphagia Diet modifications: Last documented Solid diet consistencies: Pureed (NDD1) Last documented Liquid consistency: [place] Thick Last documented Medication Administration: Changes made to current diet?: No Liquid Consistency and Strategies: Liquid Intake Recommendation: [place] Thick Compensatory Strategies for Safe Swallow: Small Sips No Straws Compensatory Strategies for Safe Swallow(b): Sitting Upright (90 deg) Small Bites and Sips Alternate Liquids/Solids Oral Check Solid Food Consistency: Dietary Recommendations: Pureed (NDD1) Additional Modifications to Solids: Patient will need 1-1 feed. Provide liquids through controlled straw sips and interrupt chain gulping of liquid. Provide food in small bites, pace administration so that patient does not rapidly consume food. Oral Medication Intake: Crushed with Puree Strategies and Precautions to be Taken for Safe Swallow: Sitting Upright (90 deg) Small Bites and Sips Alternate Liquids/Solids Oral Check Supervision While Eating and/Drinking: Total Assistance (1:1) Foods to Avoid: Sticky or congealed purees, mixed consistencies. Swallowing Recommended Treatments: Compens. Strategy Educat. Level of Impact on: Daily activities: Interpersonal interactions: Education: Employment: Community: Prognosis for Improvement: Recommendation for Speech: Inpatient Speech Therapy Comment: Patient presents with risk of aspiration due to observed tendency of rapid consumption of liquids and solids, maladaptive lingual pattern during oral phase to propel bolus. Recommend start diet of PUREE (NDD1-reportedly patient's baseline) and NECTAR THICK liquids with pills crushed in puree. Patient evidences preference/habit of drinking by straw, but drinks too rapidly/chain gulps, needing full supervision/control of straw sips if using (interrupt sips to control intake). Patient also needs controlled presentation of purees as patient is inclined to eat rapidly. , RN advised of recommendations in person, RD notified by secure text. KINDERGARTEN ASSISTANT will continue to follow for toleration, possible upgrade of diet consistencies. Frequency/Duration: Date Range for Service Req: Timeline to reassess: Additional Comments: Treatment: Pt is awake and verbalizing nonsensical jargon on arrival. Per RN, she has been this way all morning. She has been taking medications, but not completing meals. She remains an intensive 1:1 feed. Pt accepts small bites of Puree Solids (vanilla pudding) with cues and priming. She demonstrated good toleration of this texture with no overt s/s of aspiration. She tolerated Thin Liquids via Ice Chips with adequate mastication time and no overt s/s of aspiration. She tolerated Thin Liquids via Spoon in consecutive trials with no overt s/s of aspiration. She did not take to a straw when prompted. She had difficulty with a Ground Solid trial (pudding with crushed nikunj cracker), leaving it in her mouth for a prolonged time and eventually resulting in anterior escape (spitting out?) and increased wet/gurgly vocal quality. Despite some promising trials with Thin Liquids, the Pt will continue to benefit from her current recommendations of Puree Solids and [place]-Thick Liquids based on today's performance. Assessment: Electromedical Service Engineer Clinican/Clinical Fellow: No Supervisory Statement: I have reviewed and agree with the student/clinical fellow's documentation: N/A Speech Language Pathologist: Kole Johnston M.A., CCC-KINDERGARTEN ASSISTANT
--- NOTE | 2022-10-03 11:19 | MHC.CM.PN ---
CM continues to follow patient. Plan for patient to return to [facility] when medically stable.
[2022-10-03] MEDS: Albuterol/Iprat 2.5/0.5MG 3 ML AMPUL.NEB INHALE ×3 (12:38→19:43)
--- NOTE | 2022-10-03 13:40 | PM.CCPN ---
Subjective Subjective Date of Service: 10/03/22 Interval History: 62-year-old lady with underlying history developmental disorder, schizoaffective disorder, pulmonary embolism on anticoagulation, skilled facility resident admitted on 09/29/2022 with sepsis with urinary source requiring vasopressor support. Cultures negative to date. Her mental status has baseline per her guardian. No events overnight. Titrated off Levophed drip. Self-resolving bouts of tachycardia with care. Critical Care Time (minutes): 0 Physical Exam Vital Signs: Vital Signs: Last Vital Signs Temp 97.4 F 10/03/22 12:04 Pulse 100 10/03/22 13:00 Resp 23 H 10/03/22 13:00 BP 111/46 L 10/03/22 13:00 Pulse Ox 94 10/03/22 13:00 O2 Del Method Room Air 10/03/22 13:00 BMI result Body Mass Index 33.8 Const: General: no acute distress, alert, awake and other ( intermittently agitated) Nutritional Appearance: obese and Edematous Eyes: Sclerae: sclerae normal EOM: EOMs intact bilaterally Neck: Neck: Yes no lymphadenopathy, Yes trachea midline and Yes supple Resp: Effort & Inspection: normal respiratory effort and no respiratory distress Auscultation: clear to auscultation bilaterally Cardio: Rate: regular rate Rhythm: regular rhythm Heart sounds: no gallops, no murmurs and no rubs GI: Palpation (GI): Soft to palpation and Other GI palpation findings present ( Nontender) Auscultation: normal bowel sounds Extrem: General: Yes no pedal edema, No clubbing and No cyanosis Objective Data Labs 10/03/22 04:50 10/03/22 04:50 Labs: Laboratory Results - last 24 hr 10/03/22 10/03/22 10/03/22 04:50 04:50 04:50 WBC 17.2 H RBC 2.42 L Hgb 6.6 L* Hct 23.7 L MCV 97.9 MCH 27.3 MCHC 27.8 L RDW 19.7 H Plt Count 276 D MPV 9.6 Immature Gran % (Auto) Cancelled Neut % (Auto) Cancelled Lymph % (Auto) Cancelled [place] % (Auto) Cancelled Eos % (Auto) Cancelled Baso % (Auto) Cancelled Lymph # (Auto) Cancelled [place] # (Auto) Cancelled Eos # (Auto) Cancelled Baso # (Auto) Cancelled Abs Immat Gran (auto) Cancelled Absolute Neuts (auto) Cancelled Absolute Nucleated RBC 0.140 H Nucleated RBC % (auto) 0.8 H Neutrophils % (Manual) 75 H Band Neutrophils % 2 L Lymphocytes % (Manual) 19 L Monocytes % (Manual) 2 Metamyelocytes % 2 Abs Neuts (Manual) 13.2 H Lymphocytes # (Manual) 3.3 Monocytes # (Manual) 0.3 Metamyelocytes # 0.3 Nucleated RBCs 1 H Platelet Estimate NORMAL Plt Morphology Comment NORMAL RBC Morphology NOTED Polychromasia 1+ (0-2) Hypochromasia 1+ (5-14) Target Cells 1+ (5-14) VBG pH 7.44 H VBG pCO2 35 VBG pO2 41 VBG HCO3 24 VBG O2 Saturation 64.0 VBG Base Excess 0.5 Sodium 150 H Potassium 3.0 L Chloride 118 H Carbon Dioxide 22 Anion Gap 13 BUN 7 L Creatinine 0.81 Estim Creat Clear Calc 88.3 Estimated GFR > 60 Random Glucose 111 Calcium 9.0 Phosphorus 2.2 L Magnesium 1.7 Albumin 2.7 L Random Vancomycin Blood Type Antibody Screen Crossmatch 10/03/22 10/03/22 06:15 07:51 WBC RBC Hgb Hct MCV MCH MCHC RDW Plt Count MPV Immature Gran % (Auto) Neut % (Auto) Lymph % (Auto) [place] % (Auto) Eos % (Auto) Baso % (Auto) Lymph # (Auto) [place] # (Auto) Eos # (Auto) Baso # (Auto) Abs Immat Gran (auto) Absolute Neuts (auto) Absolute Nucleated RBC Nucleated RBC % (auto) Neutrophils % (Manual) Band Neutrophils % Lymphocytes % (Manual) Monocytes % (Manual) Metamyelocytes % Abs Neuts (Manual) Lymphocytes # (Manual) Monocytes # (Manual) Metamyelocytes # Nucleated RBCs Platelet Estimate Plt Morphology Comment RBC Morphology Polychromasia Hypochromasia Target Cells VBG pH VBG pCO2 VBG pO2 VBG HCO3 VBG O2 Saturation VBG Base Excess Sodium Potassium Chloride Carbon Dioxide Anion Gap BUN Creatinine Estim Creat Clear Calc Estimated GFR Random Glucose Calcium Phosphorus Magnesium Albumin Random Vancomycin 16.7 Blood Type A Positive Antibody Screen NEGATIVE Crossmatch See Detail Microbiology Microbiology Results: Microbiology 09/29/22 14:08 Blood - Venous Blood Culture - Preliminary Coag negative Staphylococcus 04/14/23 23:00 Heel, Left Gram Stain - Final 09/29/22 23:00 Heel, Left Routine Culture - Preliminary Proteus mirabilis 10/01/22 18:06 Blood - Venous Blood Culture - Preliminary No growth after 24 hours. 10/01/22 18:06 Blood - Venous Blood Culture - Preliminary No growth after 24 hours. 09/29/22 23:55 Sputum - Suctioned Gram Stain - Final 09/29/22 23:55 Sputum - Suctioned Sputum Culture - Final 09/29/22 14:08 Blood - Venous Blood Culture - Preliminary No growth after 48 hours. 09/29/22 Unknown Urine Catheterized - Randall Catheter Urine Culture - Final Progress Note: A&P Assessment and plan (1) UTI (urinary tract infection): Status: Acute (2) Delirium due to another medical condition, acute, hyperactive: Status: Acute (3) Pulmonary embolism: Status: Acute (4) Schizoaffective disorder: Status: Acute (5) Hx of chcf use of blood thinners: Status: Acute (6) Pressure injury of deep tissue of right heel: Status: Acute (7) Pressure ulcer of right leg, stage 3: Status: Acute (8) Pressure injury of left heel, stage 3: Status: Acute Plan Assessment: 62-year-old lady admitted with UTI sepsis this initially requiring vasopressor support, now titrated off. Mental status is at baseline. Plan: Neuro: Underlying developmental delay and schizoaffective disorder, continues on valproic acid. Mental status is at baseline (intermittent agitation / essentially no communication) per guardian. Cardiac: Titrated off pressor support. Pulmonary: No acute issues. Chronic anticoagulation for pulmonary embolism, now held secondary to subacute anemia Renal: No acute issues. Endo: No acute issues. GI: No acute issues. Pending swallow evaluation. ID: UTI with cultures negative to date. Continue broad-spectrum antibiotics, day 5/7. Heme/Onc: slow subacute anemia. Transfused 2 units of packed red blood cells. Hemoccult pending. Psych: No acute issues. Miscellaneous: No acute issues. Prophylaxis: pneumatic compression Diet: pureed Quality Stroke Does the patient have a stroke diagnosis?: No VTE Prior VTE?: No VTE Risk Level:: Medical - moderate - high VTE Device Contraindication: N/A - Device Ordered VTE Drug Contraindication: N/A - Med Ordered
--- NOTE | 2022-10-03 18:43 | PC.NURSE ---
Pt weaned off Levophed gtt, MAP maintained at goal. Pt SR/ ST on tele, with care goes into SVT in the 180s, unsustained, aware of this. Pt received the 2 units of RBCs as ordered, tolerated well. Plan to downgrade to Med-tele. Pt's wound dressing changed. Pt bathed, repositioned every 2 hrs and as needed. Pt otherwise in no acute distress. Safety maintained throughout. Report given to receiving RN who will continue with plan of care. Pt left the unit in bed assisted by staff at approximately 1835.
[2022-10-04] VITALS (10 sets, daily range): BP systolic 110–126; BP diastolic 56–69; PULSE 95–106; RESP 18–20; TEMP 36.1–36.4; O2SAT 90–99; BMI 35.9
[2022-10-04] MEDS: Piperacillin Sodium/Tazobactam 4.5 GM in 0.9 % Sodium Chloride 100 ML IV ×4 (02:41→20:17)
[2022-10-04] MEDS: Levothyroxine Sodium 100 MCG TABLET PO (05:55)
[2022-10-04 07:22] LABS: Hematocrit 30.3 % (37.0-47.0); Hemoglobin 9.1 g/dl (12.0-16.0); Mean Corpuscular Hemoglobin 29.4 pg (27.0-33.0); Mean Corpuscular Volume 97.7 fL (80.0-98.0); Mean Platelet Volume 9.4 fL (9.4-12.3); NRBC Pct Auto 0.7 /100WBC (0.0-0.2); Platelet Count 177 X10*3/uL (160-400); Red Cell Distribution Width 18.3 % (11.0-16.0); White Blood Count 10.9 X10*3/uL (4.8-10.8)
[2022-10-04 08:00] LABS: Band Neutrophils Percent 8 % (3-5); Lymphocytes Absolute Manual 1.1 X10*3/uL (1.2-4.9); Lymphocytes Percent Manual 10 % (20-40); Metamyelocytes Absolute 0.1 X10*3/uL; Metamyelocytes Percent 1 %; Monocytes Absolute Manual 0.4 X10*3/uL (0.1-1.2); Monocytes Percent Manual 4 % (2-11); Myelocytes Absolute 0.2 X10*/uL; Myelocytes Percent 2 %; Neutrophils Percent Manual 75 % (45-73); Nucleated Red Blood Cells 1 /100WBC (0-0)
[2022-10-04 08:01] LABS: Macrocytosis 1+ (5-14) /OIF; RBC Morphology NOTED
[2022-10-04] MEDS: QUEtiapine Fumarate 50 MG TABLET PO ×3 (08:01→20:18)
[2022-10-04] MEDS: Lactulose 20 GM/30 ML SOLUTION PO ×2 (08:01→20:18)
[2022-10-04 08:02] LABS: Burr Cells 1+ (0-2) /OIF
[2022-10-04 08:03] LABS: Platelet Estimate NORMAL (NORMAL); Platelet Morphology Comment NORMAL; Spherocytes 1+ (0-2) /OIF
[2022-10-04] MEDS: Divalproex Sodium Sprinkles 125 MG CAP.DR.SPR 1000 MG PO ×2 (08:07→20:18)
[2022-10-04] MEDS: Zinc Oxide 20% Ointment 28.35 GM TUBE 1 APPL TOPICAL ×2 (08:15→20:18)
[2022-10-04 08:16] LABS: Creatinine Clr Calc Pharmacy 84.7; Estimated Glomerular Filt Rate > 60
[2022-10-04] MEDS: Albuterol/Iprat 2.5/0.5MG 3 ML AMPUL.NEB INHALE ×4 (08:39→20:02)
--- NOTE | 2022-10-04 09:04 | HE.PHANOTE ---
VANCO DOSE ADJUSTMENT BASED ON SCR DOSE CONTINUED AT 100 Q 24H. NEXT TROUGH AT 0700 10/05
[2022-10-04 10:26] LABS: OBS Int Ctl Valid YES; OBS1 NEGATIVE (NEGATIVE)
[2022-10-04] MEDS: vancomycin HCL 1,000 MG in 0.9 % Sodium Chloride 250 ML 270 MG IV (10:44)
--- NOTE | 2022-10-04 11:02 | MHC.CLN ---
F/U PT WITH INCREASED NUTRITION RISK R/T PRESSURE INJURIES PO INTAKE 75-100% DIET RX: PUREED WITH NT LIQ-ADVANCED PER GLOBAL ENGINEERING MANAGER PT RECEIVING ENSURE BID PROVIDES 700KCALS, 40G PROTEIN WITH 100% ACCEPTANCE MONITOR PO INTAKE CLOSELY
--- NOTE | 2022-10-04 11:20 | MHC.SLORD ---
Speech Language Pathology Order Status: Attempted to administer PO trials this morning, presented ice chips to pt. Pt turning head away, spitting afterwards. Pt shouting out continuously, not opening eyes and not attending to PO presented or dysphagia treatment at this time. Pt was evaluated by SCREENING TECH previously and was recommended NDD1/NTL. SCREENING TECH called and confirmed w/ nursing staff at [facility], pt's baseline prior to hospitalization was NDD1/thin with 1:1 assistance feeding. SCREENING TECH will continue to follow.
--- NOTE | 2022-10-04 15:13 | MHC.CM.PN ---
EMR REVIEWED, PER HOSPITALIST ANTIC PT MAY BE CLEARED FOR D/C BACK TO LTC AT [facility] TOMORROW 10/05/22, CM WILL CONT TO FOLLOW D/C NEEDS.
--- NOTE | 2022-10-04 15:50 | HO.PM.IMPN ---
Subjective Subjective Date of Service: 10/04/22 Interval History: No acute issues overnight per staff Review of Systems Unable to obtain Physical Exam Vital Signs: Vital Signs: Last Vital Signs Temp 97.2 F 10/04/22 15:40 Pulse 98 10/04/22 15:40 Resp 20 10/04/22 15:40 BP 122/56 L 10/04/22 15:40 Pulse Ox 99 10/04/22 10:58 O2 Del Method Room Air 10/04/22 10:58 O2 Flow Rate 3 09/30/22 19:00 FiO2 21 10/02/22 07:00 BMI result Body Mass Index 35.9 Const: Other: Awake alert nonverbal Resp: Other: Clear to auscultation bilaterally no rales rhonchi or wheezes Cardio: Other: No S4; positive S1-S2; no S3 murmurs rubs or gallops Extrem: Other: No edema Objective Data Active Medications Acetaminophen (Acetaminophen Supp 650 Mg Supp.Rect) 650 mg MD Q6H PRN PRN Reason: Fever Last Admin: 10/01/22 19:41 Dose: 650 mg Documented By: DARIEL Albuterol/Ipratropium (Albuterol/Iprat 2.5/0.5mg 3 Ml Ampul.Neb) 3 ml INHALE RQ4H WHILE AWAKE [facility] Last Admin: 10/04/22 15:30 Dose: 3 ml Documented By: NEEL Divalproex Sodium (Divalproex Sodium Sprinkles 125 Mg ) 1,000 mg PO BID [facility] Last Admin: 10/04/22 08:07 Dose: 1,000 mg Documented By: MILTON Piperacillin Sod/Tazobactam (Sod 4.5 gm/ Sodium Chloride) 100 mls @ 200 mls/hr IV Q6H [facility] Last Infusion: 10/04/22 14:00 Dose: 0 mls/hr Documented By: MILTON Vancomycin HCl 1,000 mg/ (Sodium Chloride) 270 mls @ 270 mls/hr IV Q24H [facility] Last Infusion: 10/04/22 11:57 Dose: 0 mls/hr Documented By: MILTON Lactulose (Lactulose 20 Gm/30 Ml Solution) 20 gm PO BID [facility] Last Admin: 10/04/22 08:01 Dose: 20 gm Documented By: MILTON Levothyroxine Sodium (Levothyroxine Sodium 100 Mcg Tablet) 100 mcg PO DAILY@0600 [facility] Last Admin: 10/04/22 05:55 Dose: 100 mcg Documented By: ANNALEE Omeprazole (Omeprazole 20 Mg/10 Ml Susp.Recon) 40 mg PO DAILY@0630 [facility] Last Admin: 10/04/22 05:52 Dose: 40 mg Documented By: ANNALEE Pharmacy Consult (Consult Rx Vancomycin Dosing) 1 each MISCELLANE DAILY PRN PRN Reason: Consult order Quetiapine Fumarate (Quetiapine Fumarate 50 Mg Tablet) 50 mg PO TID [facility] Last Admin: 10/04/22 14:10 Dose: 50 mg Documented By: MILTON Zinc Oxide (Zinc Oxide 20% Ointment 28.35 Gm Tube) 1 appl TOPICAL BID [facility]; Protocol Last Admin: 10/04/22 08:15 Dose: 1 appl Documented By: MILTON Labs 10/04/22 07:03 10/04/22 07:03 Labs: Laboratory Results - last 24 hr 10/04/22 10/04/22 10/04/22 07:03 07:03 09:56 MCV 97.7 MCH 29.4 MCHC 30.0 L RDW 18.3 H Plt Count 177 D MPV 9.4 Immature Gran % (Auto) Cancelled Neut % (Auto) Cancelled Lymph % (Auto) Cancelled [place] % (Auto) Cancelled Eos % (Auto) Cancelled Baso % (Auto) Cancelled Lymph # (Auto) Cancelled [place] # (Auto) Cancelled Eos # (Auto) Cancelled Baso # (Auto) Cancelled Abs Immat Gran (auto) Cancelled Absolute Neuts (auto) Cancelled Absolute Nucleated RBC 0.080 H Nucleated RBC % (auto) 0.7 H Neutrophils % (Manual) 75 H Band Neutrophils % 8 H Lymphocytes % (Manual) 10 L Monocytes % (Manual) 4 Metamyelocytes % 1 Myelocytes % 2 Abs Neuts (Manual) 9.0 H Lymphocytes # (Manual) 1.1 L Monocytes # (Manual) 0.4 Metamyelocytes # 0.1 Myelocytes # 0.2 Nucleated RBCs 1 H Platelet Estimate NORMAL Plt Morphology Comment NORMAL RBC Morphology NOTED Macrocytosis 1+ (5-14) Spherocytes 1+ (0-2) [place] Cells 1+ (0-2) Estim Creat Clear Calc 84.7 Estimated GFR > 60 Stool Occult Blood NEGATIVE Microbiology Microbiology Results: Microbiology 09/29/22 14:08 Blood Culture - Final Blood - Venous Coag negative Staphylococcus Peptostreptococcus species 09/29/22 23:00 Gram Stain - Final Heel, Left Routine Culture - Preliminary Culture in progress. 10/01/22 18:06 Blood Culture - Preliminary Blood - Venous No growth after 48 hours. 10/01/22 18:06 Blood Culture - Preliminary Blood - Venous No growth after 48 hours. Assessment and Plan (1) Sepsis: Status: Acute (2) UTI (urinary tract infection): Status: Acute (3) Pulmonary embolism: Status: Acute (4) Hx of mcc use of blood thinners: Status: Acute Plan 62-year-old lady admitted with UTI/ sepsis required ICU initially for pressors. Successfully weaned off pressures in transfer to floor. No acute issues 1. UTI(multpile organisms) -given severity of presentation with complete 1 week course of IV antibiotics 2. Pulmonary embolism (by history) -continue Eliquis as ordered 3. Schizoaffective disorder -continue current therapies -adjust as indicated Eliquis Full code Requires ongoing hospitalization for IV antibiotics to treat multiple organism UTI resulting in sepsis Time Spent With Patient Time: Total time managing care of this patient today ____ minutes. Quality Stroke Does the patient have a stroke diagnosis?: No VTE Prior VTE?: No VTE Risk Level:: Medical - moderate - high VTE Device Contraindication: N/A - Device Ordered VTE Drug Contraindication: N/A - Med Ordered
[2022-10-05] VITALS (8 sets, daily range): BP systolic 97–151; BP diastolic 53–82; PULSE 97–112; RESP 16–20; TEMP 36.1–37; O2SAT 93–97; BMI 33.4
[2022-10-05] MEDS: Piperacillin Sodium/Tazobactam 4.5 GM in 0.9 % Sodium Chloride 100 ML IV ×4 (02:07→20:55)
[2022-10-05] MEDS: Levothyroxine Sodium 100 MCG TABLET PO (05:35)
[2022-10-05 07:25] LABS: Creatinine Clr Calc Pharmacy 67.7; Estimated Glomerular Filt Rate 53
[2022-10-05] MEDS: Divalproex Sodium Sprinkles 125 MG CAP.DR.SPR 1000 MG PO ×2 (07:42→21:01)
[2022-10-05] MEDS: Lactulose 20 GM/30 ML SOLUTION PO ×2 (07:42→21:03)
[2022-10-05] MEDS: QUEtiapine Fumarate 50 MG TABLET PO ×2 (07:43→21:03)
[2022-10-05] MEDS: Zinc Oxide 20% Ointment 28.35 GM TUBE 1 APPL TOPICAL ×2 (07:58→21:09)
[2022-10-05] MEDS: Albuterol/Iprat 2.5/0.5MG 3 ML AMPUL.NEB INHALE ×3 (08:06→19:40)
[2022-10-05 12:15] LABS: COVID-19 Test Negative (Negative); IDNOW Serial# 9DB6401D
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
--- NOTE | 2022-10-05 13:20 | PC.NURSE ---
Around this time, this Rn entered room to administered medication, pt found to have vomit around face and chest, oxygen levels were checked, pt stating in the 60s. Pt was put on a non rebreather briefly and then suctioned by respiratory. Dr. Willett at bedside during this time. Pt vomiting excessively. Zofran given, chest x ray ordered. Pt currently on 7 liters via nasal cannula, continous O2 monitor in place. Safety and fall precautions maintained. Call beaver within reach. Camera in room.
--- NOTE | 2022-10-05 13:22 | MHC.CM.PN ---
Addendum entered by Britt Galvez 10/05/22 14:09: DC FOR TODAY HAS BEEN CX PER MD DUE TO GI UPSET. [facility] MADE AWARE VIA . TRANSPORT CX. CM WILL CONTINUE TO FOLLOW Original Note: DP:IMM DELIVERED, [facility]IAN QUINN IGLESIAS IS AWARE OF DC TODAY. PT HAS BEEN MEDICALLY CLEARED FOR DC BACK TO [facility] TO RESUME LTC. RN AWARE. [facility] UPDATED. BLS TRANSPORT BOOKED FOR 4 PM VIA [facility].
[2022-10-05 13:40] LABS: Vancomycin Random 21.2 mcg/mL (15-20)
[2022-10-05] MEDS: ondansetron HCL 4 MG/2 ML VIAL IVPUSH (14:18)
--- NOTE | 2022-10-05 14:18 | HE.PHANOTE ---
Vancomycin Dosing Level is supratherapetic at 21.2 at 1300. Will continue to hold dose until tonight (last dose was given10/04 @ 1044). Will decrease dose to vancomycin 750 mg Q24h starting 10/05 @ 2100. Expected AUC 559 with a trough of 19.4. Next level 10/06 @ 1900. Jannette PiersonD
--- NOTE | 2022-10-05 15:00 | MHC.SLORD ---
Speech Language Pathology Order Status: Attempted to see patient at lunch, but lunch had been consumed by the time I reached room. Noted that patient ate entirety of tray today, all pureed food and [place] Thick liquids, indicating tolerating diet well.
[2022-10-05] MEDS: vancomycin HCL 750 MG in 0.9 % Sodium Chloride 250 ML 265 MG IV (20:56)
[2022-10-06] VITALS (10 sets, daily range): BP systolic 95–131; BP diastolic 44–89; PULSE 92–152; RESP 16–24; TEMP 36.2–37.2; O2SAT 92–100; BMI 35.5
[2022-10-06] MEDS: Piperacillin Sodium/Tazobactam 4.5 GM in 0.9 % Sodium Chloride 100 ML IV ×4 (02:05→21:17)
--- NOTE | 2022-10-06 04:43 | PM.EVENT ---
Event Note Date of Service: 10/06/22 Event Note: Patient with persistent sinus tachycardia reaching a heart rate in the 120s. Unable to assess symptoms due to nonverbal status. No temperature, no evidence of pain. When asked the nurse states that patient has not been eating due to the vomiting yesterday. Sinus tachycardia likely due to dehydration. Will start her on some maintenance fluids while here. Time Spent With Patient Time: Total time managing care of this patient today ____ minutes.
[2022-10-06] MEDS: Lactated Ringers 1,000 ML 100 ML IVCONT (04:58)
[2022-10-06] MEDS: Levothyroxine Sodium 100 MCG TABLET PO (05:19)
--- NOTE | 2022-10-06 05:54 | PC.NURSE ---
notified for the second time of pts HR ranging from 100mid 160's, HR is not stable it is bouncing up and down, please note V/S just taken in V/S section, awaiting additional order, IVF started with the first notification, will condition to monitor, awaiting orders.
[2022-10-06 07:05] LABS: Creatinine Clr Calc Pharmacy 55.6; Estimated Glomerular Filt Rate 41
[2022-10-06] MEDS: Lactulose 20 GM/30 ML SOLUTION PO (09:12)
[2022-10-06] MEDS: Divalproex Sodium Sprinkles 125 MG CAP.DR.SPR 1000 MG PO (09:12)
[2022-10-06] MEDS: QUEtiapine Fumarate 50 MG TABLET PO ×2 (09:12→16:00)
[2022-10-06] MEDS: Zinc Oxide 20% Ointment 28.35 GM TUBE 1 APPL TOPICAL ×2 (09:24→21:18)
--- NOTE | 2022-10-06 11:15 | P.PNIM_ITS ---
Subjective Subjective Date of Service: 10/06/22 Interval History: Episode of vomiting holding discharged yesterday. X-ray negative but however patient likely aspirated. Remains tachycardic intermittently; deep suction for scant amount Review of Systems Unable to obtain Physical Exam Vital Signs: Vital Signs: Last Vital Signs Temp 97.2 F 10/06/22 07:15 Pulse 141 H 10/06/22 07:15 Resp 24 H 10/06/22 07:15 BP 114/56 L 10/06/22 07:15 Pulse Ox 98 10/06/22 07:15 O2 Del Method Oxymask 10/06/22 07:15 O2 Flow Rate 6.0 10/06/22 07:15 FiO2 21 10/02/22 07:00 BMI result Body Mass Index 35.5 Const: Other: Awake alert nonverbal Resp: Other: Diffuse coarse rhonchi with scattered expiratory wheezes throughout Cardio: Other: No S4; positive S1-S2; no S3 murmurs rubs or gallops Extrem: Other: No edema Objective Data Active Medications Acetaminophen (Acetaminophen Supp 650 Mg Supp.Rect) 650 mg VT Q6H PRN PRN Reason: Fever Last Admin: 10/01/22 19:41 Dose: 650 mg Documented By: DARIEL Albuterol/Ipratropium (Albuterol/Iprat 2.5/0.5mg 3 Ml Ampul.Neb) 3 ml INHALE RQ4H WHILE AWAKE [facility] Last Admin: 10/06/22 08:31 Dose: Not Given Documented By: RANJITH Non-Admin Reason: See Note Divalproex Sodium (Divalproex Sodium Sprinkles 125 Mg ) 1,000 mg PO BID [facility] Last Admin: 10/06/22 09:12 Dose: 1,000 mg Documented By: MILTON Piperacillin Sod/Tazobactam (Sod 4.5 gm/ Sodium Chloride) 100 mls @ 200 mls/hr IV Q6H [facility] Last Infusion: 10/06/22 10:49 Dose: 0 mls/hr Documented By: MILTON Vancomycin HCl 750 mg/ Sodium (Chloride) 265 mls @ 265 mls/hr IV Q24H [facility] Last Infusion: 10/05/22 23:28 Dose: 0 mls/hr Documented By: ARELY-LADESTHER Lactated Ringer's (Lr) 1,000 mls @ 100 mls/hr IVCONT .Q10H [facility] Last Admin: 10/06/22 04:58 Dose: 100 mls/hr Documented By: GRANT Lactulose (Lactulose 20 Gm/30 Ml Solution) 20 gm PO BID [facility] Last Admin: 10/06/22 09:12 Dose: 20 gm Documented By: MILTON Levothyroxine Sodium (Levothyroxine Sodium 100 Mcg Tablet) 100 mcg PO MARIO LY@0600 [facility] Last Admin: 10/06/22 05:19 Dose: 100 mcg Documented By: GRANT Omeprazole (Omeprazole 20 Mg/10 Ml Susp.Recon) 40 mg PO DAILY@0630 [facility] Last Admin: 10/06/22 05:19 Dose: 40 mg Documented By: GRANT Ondansetron HCl (Ondansetron Hcl 4 Mg/2 Ml Vial) 4 mg IVPUSH Q4H PRN PRN Reason: Nausea and Vomiting Last Admin: 10/05/22 14:18 Dose: 4 mg Documented By: MILTON Pharmacy Consult (Consult Rx Vancomycin Dosing) 1 each MISCELLANE DAILY PRN PRN Reason: Consult order Quetiapine Fumarate (Quetiapine Fumarate 50 Mg Tablet) 50 mg PO TID [facility] Last Admin: 10/06/22 09:12 Dose: 50 mg Documented By: MILTON Zinc Oxide (Zinc Oxide 20% Ointment 28.35 Gm Tube) 1 appl TOPICAL BID [facility]; Protocol Last Admin: 10/06/22 09:24 Dose: 1 appl Documented By: MILTON Labs 10/04/22 07:03 10/06/22 06:46 Labs: Laboratory Results - last 24 hr 10/05/22 10/05/22 10/06/22 11:41 13:13 06:46 Estim Creat Clear Calc 55.6 Estimated GFR 41 Random Vancomycin 21.2 H COVID-19 (PADMA) Negative COVID-19 Clin Com See Note Microbiology Microbiology Results: Microbiology 09/29/22 23:00 Gram Stain - Final Heel, Left Routine Culture - Final Proteus mirabilis Methicillin Res Staph Aureus Assessment and Plan (1) Aspiration into respiratory tract: Status: Acute (2) UTI (urinary tract infection): Status: Acute (3) Schizoaffective disorder: Status: Acute Plan 62-year-old lady admitted with UTI/ sepsis required ICU initially for pressors. Successfully weaned off pressures in transfer to floor. Day of discharge vomited and now with likely aspiration pneumonitis 1. Aspiration pneumonitis -continue Zosyn as ordered -at pulse dose steroids -titrate O2 as indicated 2. UTI(multpile organisms) -given severity of presentation with complete 1 week course of IV antibiotics 3. Pulmonary embolism (by history) -continue Eliquis as ordered 4. Schizoaffective disorder -continue current therapies -adjust as indicated Eliquis Full code Requires ongoing hospitalization for IV antibiotics to treat multiple organism UTI resulting in sepsis along with aspiration pneumonitis Time Spent With Patient Time: Total time managing care of this patient today ____ minutes. Quality Stroke Does the patient have a stroke diagnosis?: No VTE Prior VTE?: No VTE Risk Level:: Medical - moderate - high VTE Device Contraindication: N/A - Device Ordered VTE Drug Contraindication: N/A - Med Ordered
[2022-10-06] MEDS: Albuterol/Iprat 2.5/0.5MG 3 ML AMPUL.NEB INHALE ×3 (11:41→20:23)
--- NOTE | 2022-10-06 14:34 | MHC.CM.PN ---
EMR REVIEWED AND PER MD ROUNDS, PT IS NOT MEDICALLY CLEARED FOR DC (ASPIRATION WITH VOMITING) CM WILL CONTINUE TO FOLLOW AND UPDATED [facility].
--- NOTE | 2022-10-06 14:44 | MHC.CLN ---
F/U PT WITH INCREASED NUTRITION RISK R/T PRESSURE INJURIES. EPISODE OF VOMITING 10/05 WITH POSSIBLE ASPIRATION. LIMITED INTAKE TODAY REPORTED. DIET RX: PUREED WITH NECTAR THICK LIQUIDS. PT RECEIVING ENSURE BID. PROVIDES 700KCALS, 40G PROTEIN WITH 100% ACCEPTANCE. MONITOR PO INTAKE, DIET TOLERANCE, AND WOUND HEALING.
--- NOTE | 2022-10-06 15:08 | MHC.SLORD ---
Speech Language Pathology Order Status: Pt on oxymask. Pt asleep upon GUIDE SETTER arrival, refusing PO when awoken. Pt had lunch tray at bedside, which appeared to be untouched. Pt had juices at bedside, apple juice on tray appeared to be too thin, did not pass flow test for nectar thick consistency, and was removed from the tray. Pt had cranberry juice on the tray which was at the appropriate thickness. Pt currently on pureed solids (NDD1)/nectar thick liquids. Will continue to follow.
[2022-10-06 19:27] LABS: Vancomycin Random 20.4 mcg/mL (15-20)
[2022-10-07] VITALS (9 sets, daily range): BP systolic 100–140; BP diastolic 54–70; PULSE 67–87; RESP 19–20; TEMP 36–37.7; O2SAT 93–97
[2022-10-07] MEDS: Acetaminophen Supp 650 MG SUPP.RECT PR (01:59)
[2022-10-07] MEDS: Piperacillin Sodium/Tazobactam 4.5 GM in 0.9 % Sodium Chloride 100 ML IV ×4 (02:09→20:56)
[2022-10-07 02:44] LABS: Anion Gap 14 (12-20); Blood Urea Nitrogen 18 mg/dL (9-16); Calcium 9.1 mg/dL (8.4-10.2); Carbon Dioxide 23 mmol/L (22-29); Chloride 126 mmol/L (96-108); Creatinine Clr Calc Pharmacy 50.6; Estimated Glomerular Filt Rate 36; Glucose Fasting 84 mg/dL (60-99); Potassium 2.8 mmol/L (3.3-5.1); Sodium 160 mmol/L (135-145)
[2022-10-07 02:47] LABS: Hematocrit 30.1 % (37.0-47.0); Hemoglobin 8.7 g/dl (12.0-16.0); Mean Corpuscular HGB Conc 28.9 g/dl (31.0-35.0); Mean Corpuscular Hemoglobin 29.3 pg (27.0-33.0); Mean Corpuscular Volume 101.3 fL (80.0-98.0); Mean Platelet Volume 10.7 fL (9.4-12.3); NRBC Pct Auto 0.4 /100WBC (0.0-0.2); Platelet Count 126 X10*3/uL (160-400); Red Blood Count 2.97 X10*6/uL (4.20-5.50); White Blood Count 16.6 X10*3/uL (4.8-10.8)
--- NOTE | 2022-10-07 02:51 | PM.EVENT ---
Event Note Date of Service: 10/07/22 Event Note: patient with worsening hyopxia, likely aspiration, labs also significant for worsening hypernatremia nad hypokalemia conitinue intermittent suctioning started d5w replace K Time Spent With Patient Time: Total time managing care of this patient today ____ minutes.
[2022-10-07] MEDS: Dextrose 5 % 1,000 ML 100 ML IVCONT (03:14)
[2022-10-07] MEDS: Potassium Chloride/H20 10 MEQ/100 ML PIGGYBACK 100 MEQ IV ×8 (04:25→14:21)
[2022-10-07 07:24] LABS: Vancomycin Random 17.9 mcg/mL (15-20)
--- NOTE | 2022-10-07 07:30 | PC.NURSE ---
P - Patient noted to be tachycardic - HR 130-140's I - Patient assessed with elevated temperature 100.9 per salvage supervisor. Rectal tylenol given. MD at bedside to evaluate. Labs ordered - showing sodium 160 so D5W started @ 100 ml/hr. Patient suctioned. Satting 98% on 3L oxymask. IV potassium ordered and administered. E - Patient noted to have episodes where her HR will jump to 140's and sustain while sleeping until patient is stimulated and then HR drops back down to 80's. MD and nursing salvage supervisor aware. Will pass onto oncoming RN.
[2022-10-07] MEDS: Dextrose 5 % 1,000 ML 150 ML IVCONT ×3 (08:16→20:51)
[2022-10-07] MEDS: Albuterol/Iprat 2.5/0.5MG 3 ML AMPUL.NEB INHALE ×2 (08:23→23:04)
[2022-10-07] MEDS: Zinc Oxide 20% Ointment 28.35 GM TUBE 1 APPL TOPICAL (08:24)
--- NOTE | 2022-10-07 10:44 | P.PNIM_ITS ---
Subjective Subjective Date of Service: 10/07/22 Interval History: Events of overnight noted. Remains somnolent but arousable Review of Systems Unable to obtain Physical Exam Vital Signs: Vital Signs: Last Vital Signs Temp 98.9 F 10/07/22 07:33 Pulse 86 10/07/22 07:33 Resp 20 10/07/22 08:23 BP 100/60 10/07/22 07:33 Pulse Ox 96 10/07/22 07:33 O2 Del Method Oxymask 10/07/22 07:33 O2 Flow Rate 3 10/07/22 07:33 FiO2 21 10/02/22 07:00 BMI result Body Mass Index 35.5 Const: Other: Awake alert nonverbal Resp: Other: Diffuse coarse rhonchi with scattered expiratory wheezes throughout Cardio: Other: No S4; positive S1-S2; no S3 murmurs rubs or gallops Extrem: Other: No edema Objective Data Active Medications Acetaminophen (Acetaminophen Supp 650 Mg Supp.Rect) 650 mg [place] Q6H PRN PRN Reason: Fever Last Admin: 10/07/22 01:59 Dose: 650 mg Documented By: ANTOIC Albuterol/Ipratropium (Albuterol/Iprat 2.5/0.5mg 3 Ml Ampul.Neb) 3 ml INHALE RQ4H WHILE AWAKE [facility] Last Admin: 10/07/22 08:23 Dose: 3 ml Documented By: JONI Divalproex Sodium (Divalproex Sodium Sprinkles 125 Mg ) 1,000 mg PO BID [facility] Last Admin: 10/07/22 08:24 Dose: Not Given Documented By: DAYAMI Non-Admin Reason: NPO Piperacillin Sod/Tazobactam (Sod 4.5 gm/ Sodium Chloride) 100 mls @ 200 mls/hr IV Q6H [facility] Last Infusion: 10/07/22 09:00 Dose: 0 mls/hr Documented By: DAYAMI Potassium Chloride (Potassium Chloride/H20) 10 meq in 100 mls @ 100 mls/hr IV Q1H [facility] Stop: 10/07/22 11:59 Last Admin: 10/07/22 09:25 Dose: 100 mls/hr Documented By: DAYAMI Dextrose (D5w) 1,000 mls @ 150 mls/hr IVCONT .Q6H40M [facility] Last Admin: 10/07/22 08:16 Dose: 150 mls/hr Documented By: DAYAMI Lactulose (Lactulose 20 Gm/30 Ml Solution) 20 gm PO BID [facility] Last Admin: 10/07/22 08:24 Dose: Not Given Documented By: DAYAMI Non-Admin Reason: NPO Levothyroxine Sodium (Levothyroxine Sodium 100 Mcg Tablet) 100 mcg PO DAILY@0600 [facility] Last Admin: 10/07/22 04:25 Dose: Not Given Documented By: ANTDEVORAH Non-Admin Reason: NPO Omeprazole (Omeprazole 20 Mg/10 Ml Susp.Recon) 40 mg PO DAILY@0630 [facility] Last Admin: 10/07/22 04:25 Dose: Not Given Documented By: ANTDEVORAH Non-Admin Reason: NPO Ondansetron HCl (Ondansetron Hcl 4 Mg/2 Ml Vial) 4 mg IVPUSH Q4H PRN PRN Reason: Nausea and Vomiting Last Admin: 10/05/22 14:18 Dose: 4 mg Documented By: MILTON Quetiapine Fumarate (Quetiapine Fumarate 50 Mg Tablet) 50 mg PO TID [facility] Last Admin: 10/07/22 08:24 Dose: Not Given Documented By: DAYAMI Non-Admin Reason: NPO Zinc Oxide (Zinc Oxide 20% Ointment 28.35 Gm Tube) 1 appl TOPICAL BID [facility]; Protocol Last Admin: 10/07/22 08:24 Dose: 1 appl Documented By: DAYAMI Labs 10/07/22 02:15 10/07/22 02:15 Labs: Laboratory Results - last 24 hr 10/06/22 10/07/22 10/07/22 18:59 02:15 02:15 MCV 101.3 H MCH 29.3 MCHC 28.9 L RDW 19.0 H Plt Count 126 L D MPV 10.7 Absolute Nucleated RBC 0.070 H Nucleated RBC % (auto) 0.4 H Anion Gap 14 Estim Creat Clear Calc 50.6 Estimated GFR 36 Fasting Glucose 84 Calcium 9.1 Random Vancomycin 20.4 H 10/07/22 06:50 MCV MCH MCHC RDW Plt Count MPV Absolute Nucleated RBC Nucleated RBC % (auto) Anion Gap Estim Creat Clear Calc Estimated GFR Fasting Glucose Calcium Random Vancomycin 17.9 Microbiology Microbiology Results: Microbiology 10/01/22 18:06 Blood Culture - Final Blood - Venous No growth after 5 days. 10/01/22 18:06 Blood Culture - Final Blood - Venous No growth after 5 days. Assessment and Plan (1) Aspiration into respiratory tract: Status: Acute (2) Hypernatremia: Status: Acute (3) Schizoaffective disorder: Status: Acute Plan 62-year-old lady admitted with UTI/ sepsis required ICU initially for pressors. Successfully weaned off pressures in transfer to floor. Day of discharge vomited and now with likely aspiration pneumonitis 1. Aspiration pneumonitis -continue Zosyn as ordered -continue steroids -titrate O2 as indicated 2. Hypernatremia/hypokalemia -approximately 8 L free water deficit. .. D5W to 100 an hour to correct -supplemental K -follow renals/divalents 3. UTI(multpile organisms) -given severity of presentation with complete 1 week course of IV antibiotics 4. Pulmonary embolism (by history) -continue Eliquis as ordered 5. Schizoaffective disorder -continue current therapies -adjust as indicated Eliquis Full code Requires ongoing hospitalization for IV antibiotics to treat multiple organism UTI resulting in sepsis along with aspiration pneumonitis Time Spent With Patient Time: Total time managing care of this patient today ____ minutes. Quality Stroke Does the patient have a stroke diagnosis?: No VTE Prior VTE?: No VTE Risk Level:: Medical - moderate - high VTE Device Contraindication: N/A - Device Ordered VTE Drug Contraindication: N/A - Med Ordered
[2022-10-08] MEDS: Piperacillin Sodium/Tazobactam 4.5 GM in 0.9 % Sodium Chloride 100 ML IV ×4 (03:27→21:31)
[2022-10-08 04:00] VITALS: BP 158/58; PULSE 73; RESP 20; TEMP 36.1; O2SAT 97
[2022-10-08] MEDS: Dextrose 5 % 1,000 ML 150 ML IVCONT ×3 (04:35→21:30)
[2022-10-08 05:09] VITALS: BMI 36.2
[2022-10-08 06:54] LABS: Anion Gap 12 (12-20); Blood Urea Nitrogen 14 mg/dL (9-16); Calcium 8.6 mg/dL (8.4-10.2); Carbon Dioxide 23 mmol/L (22-29); Chloride 119 mmol/L (96-108); Creatinine Clr Calc Pharmacy 58.8; Estimated Glomerular Filt Rate 43; Glucose Fasting 123 mg/dL (60-99); Potassium 2.6 mmol/L (3.3-5.1); Sodium 151 mmol/L (135-145)
[2022-10-08 07:35] VITALS: BP 110/74; PULSE 74; RESP 16; TEMP 36.4; O2SAT 94
[2022-10-08 07:56] LABS: Magnesium 1.8 mg/dL (1.6-2.6)
[2022-10-08] MEDS: Zinc Oxide 20% Ointment 28.35 GM TUBE 1 APPL TOPICAL ×2 (10:15→21:50)
[2022-10-08] MEDS: Lactulose 20 GM/30 ML SOLUTION PO ×2 (10:18→21:44)
[2022-10-08] MEDS: Divalproex Sodium Sprinkles 125 MG CAP.DR.SPR 1000 MG PO ×2 (10:19→21:45)
[2022-10-08] MEDS: QUEtiapine Fumarate 50 MG TABLET PO ×3 (10:19→21:49)
[2022-10-08] MEDS: Magnesium Sulfate/H2O 2 GM/50 ML PIGGYBACK IV (10:53)
[2022-10-08 11:25] VITALS: BP 140/62; PULSE 103; RESP 20; TEMP 37; O2SAT 94
--- NOTE | 2022-10-08 11:52 | P.PNIM_ITS ---
Subjective Subjective Date of Service: 10/08/22 Interval History: Remains hemodynamically stable. Decreasing O2 requirement noted. Review of Systems Unable to obtain Physical Exam Vital Signs: Vital Signs: Last Vital Signs Temp 98.6 F 10/08/22 11:25 Pulse 103 H 10/08/22 11:25 Resp 20 10/08/22 11:25 BP 140/62 H 10/08/22 11:25 Pulse Ox 94 10/08/22 11:25 O2 Del Method Oxymask 10/08/22 11:25 O2 Flow Rate 3 10/08/22 11:25 FiO2 21 10/02/22 07:00 BMI result Body Mass Index 36.2 Const: Other: Awake alert nonverbal Resp: Other: Diffuse coarse rhonchi with scattered expiratory wheezes throughout Cardio: Other: No S4; positive S1-S2; no S3 murmurs rubs or gallops Extrem: Other: No edema Objective Data Active Medications Acetaminophen (Acetaminophen Supp 650 Mg Supp.Rect) 650 mg [place] Q6H PRN PRN Reason: Fever Last Admin: 10/07/22 01:59 Dose: 650 mg Documented By: ANTOIC Albuterol/Ipratropium (Albuterol/Iprat 2.5/0.5mg 3 Ml Ampul.Neb) 3 ml INHALE RQ4H WHILE AWAKE PRN PRN Reason: sob Last Admin: 10/07/22 23:04 Dose: 3 ml Documented By: FLAQUITA Divalproex Sodium (Divalproex Sodium Sprinkles 125 Mg ) 1,000 mg PO BID [facility] Last Admin: 10/08/22 10:19 Dose: 1,000 mg Documented By: MARINA Piperacillin Sod/Tazobactam (Sod 4.5 gm/ Sodium Chloride) 100 mls @ 200 mls/hr IV Q6H [facility] Last Admin: 10/08/22 10:14 Dose: 100 mls/hr Documented By: MARINA Dextrose (D5w) 1,000 mls @ 150 mls/hr IVCONT .Q6H40M [facility] Last Admin: 10/08/22 04:35 Dose: 150 mls/hr Documented By: JUNAID Potassium Chloride (Potassium Chloride/H20) 10 meq in 100 mls @ 100 mls/hr IV Q1H [facility] Stop: 10/08/22 11:59 Lactulose (Lactulose 20 Gm/30 Ml Solution) 20 gm PO BID [facility] Last Admin: 10/08/22 10:18 Dose: 20 gm Documented By: MARINA Levothyroxine Sodium (Levothyroxine Sodium 100 Mcg Tablet) 100 mcg PO DAILY@0600 [facility] Last Admin: 10/08/22 06:48 Dose: Not Given Documented By: STEFANIE Non-Admin Reason: NPO Omeprazole (Omeprazole 20 Mg/10 Ml Susp.Recon) 40 mg PO DAILY@0630 [facility] Last Admin: 10/08/22 06:48 Dose: Not Given Documented By: STEFANIE Non-Admin Reason: NPO Ondansetron HCl (Ondansetron Hcl 4 Mg/2 Ml Vial) 4 mg IVPUSH Q4H PRN PRN Reason: Nausea and Vomiting Last Admin: 10/05/22 14:18 Dose: 4 mg Documented By: MILTON Quetiapine Fumarate (Quetiapine Fumarate 50 Mg Tablet) 50 mg PO TID [facility] Last Admin: 10/08/22 10:19 Dose: 50 mg Documented By: MARINA Zinc Oxide (Zinc Oxide 20% Ointment 28.35 Gm Tube) 1 appl TOPICAL BID [facility]; Protocol Last Admin: 10/08/22 10:15 Dose: 1 appl Documented By: MARINA Labs 10/07/22 02:15 10/08/22 05:43 Labs: Laboratory Results - last 24 hr 10/08/22 05:43 Anion Gap 12 Estim Creat Clear Calc 58.8 Estimated GFR 43 Fasting Glucose 123 H Calcium 8.6 Magnesium 1.8 Assessment and Plan (1) Aspiration into respiratory tract: Status: Acute (2) Hypernatremia: Status: Acute Plan 62-year-old lady admitted with UTI/ sepsis required ICU initially for pressors. Successfully weaned off pressures in transfer to floor. Day of discharge vomi lakhwinder and now with likely aspiration pneumonitis 1. Aspiration pneumonitis -will DC Zosyn at this time -trial steroids -titrate O2 as tolerated. . . Goal nasal cannula 2. Hypernatremia/hypokalemia -approximately 4 L free water deficit. .. D5W to 100 an hour to correct -supplemental K/Mag -follow renals/divalents 3. UTI(multpile organisms) -completed course of antibiotics -follow-up clinically 4. Pulmonary embolism (by history) -continue Eliquis as ordered 5. Schizoaffective disorder -continue current therapies -adjust as indicated Eliquis Full code Requires ongoing hospitalization for IV antibiotics to treat multiple organism UTI resulting in sepsis along with aspiration pneumonitis Time Spent With Patient Time: Total time managing care of this patient today ____ minutes. Quality Stroke Does the patient have a stroke diagnosis?: No VTE Prior VTE?: No VTE Risk Level:: Medical - moderate - high VTE Device Contraindication: N/A - Device Ordered VTE Drug Contraindication: N/A - Med Ordered
[2022-10-08] MEDS: Potassium Chloride/H20 10 MEQ/100 ML PIGGYBACK 100 MEQ IV ×4 (12:39→16:41)
[2022-10-08 15:00] VITALS: BP 150/76; PULSE 83; RESP 19; TEMP 36.7; O2SAT 93
[2022-10-08 20:00] VITALS: BP 123/66; PULSE 79; RESP 20; TEMP 36.8; O2SAT 97
[2022-10-08 23:23] VITALS: BP 118/62; PULSE 79; RESP 20; TEMP 36.4; O2SAT 100
[2022-10-09] MEDS: Piperacillin Sodium/Tazobactam 4.5 GM in 0.9 % Sodium Chloride 100 ML IV ×2 (02:58→08:09)
[2022-10-09] MEDS: Dextrose 5 % 1,000 ML 150 ML IVCONT ×2 (03:01→05:43)
[2022-10-09 04:00] VITALS: BP 105/52; PULSE 81; RESP 18; TEMP 36.1; O2SAT 98
[2022-10-09 05:58] VITALS: BMI 32.1
[2022-10-09 07:14] LABS: Hematocrit 30.5 % (37.0-47.0); Hemoglobin 8.8 g/dl (12.0-16.0); Mean Corpuscular HGB Conc 28.9 g/dl (31.0-35.0); Mean Corpuscular Hemoglobin 28.9 pg (27.0-33.0); Mean Platelet Volume 10.6 fL (9.4-12.3); NRBC Pct Auto 0.3 /100WBC (0.0-0.2); Platelet Count 119 X10*3/uL (160-400); Red Blood Count 3.05 X10*6/uL (4.20-5.50); Red Cell Distribution Width 18.9 % (11.0-16.0)
[2022-10-09 07:18] LABS: WBC ABN SCTR FOR CBC 1
[2022-10-09 07:42] LABS: Alanine Aminotransferase 5 U/L (0-31); Albumin Level 2.1 g/dL (3.5-5.0); Alkaline Phosphatase 61 U/L (39-117); Anion Gap 11 (12-20); Aspartate Amino Transferase 11 U/L (5-31); Bilirubin Total 0.2 mg/dL (0.0-1.0); Blood Urea Nitrogen 12 mg/dL (9-16); Carbon Dioxide 23 mmol/L (22-29); Chloride 121 mmol/L (96-108); Creatinine Clr Calc Pharmacy 63.4; Estimated Glomerular Filt Rate 50; Glucose Fasting 126 mg/dL (60-99); Magnesium 2.1 mg/dL (1.6-2.6); Potassium 2.8 mmol/L (3.3-5.1); Sodium 152 mmol/L (135-145); Total Protein 4.9 g/dL (6.5-8.0)
[2022-10-09 07:57] VITALS: BP 124/69; PULSE 86; RESP 18; TEMP 36.2; O2SAT 97
[2022-10-09] MEDS: QUEtiapine Fumarate 50 MG TABLET PO (08:20)
[2022-10-09] MEDS: Divalproex Sodium Sprinkles 125 MG CAP.DR.SPR 1000 MG PO (08:20)
[2022-10-09] MEDS: Zinc Oxide 20% Ointment 28.35 GM TUBE 1 APPL TOPICAL ×2 (08:21→22:53)
[2022-10-09 08:24] LABS: Band Neutrophils Percent 4 % (3-5); Eosinophils Percent Manual 2 % (0-4); Lymphocytes Percent Manual 17 % (20-40); Metamyelocytes Percent 3 %; Monocytes Percent Manual 7 % (2-11); Myelocytes Percent 3 %; Neutrophils Percent Manual 64 % (45-73)
[2022-10-09 08:25] LABS: Platelet Estimate DECREASED (NORMAL); Platelet Morphology Comment NORMAL
[2022-10-09 08:26] LABS: Hypochromasia 1+ (5-14) /OIF
[2022-10-09] MEDS: KCl 20 mEq in 5 % Dextrose 20 MEQ/1,000 ML IV.SOLN 100 MEQ IVCONT ×2 (09:12→22:52)
[2022-10-09 09:52] LABS: Eosinophils Absolute Manual 0.2 X10*3/uL (0.0-0.4); Metamyelocytes Absolute 0.4 X10*3/uL; Monocytes Absolute Manual 0.8 X10*3/uL (0.1-1.2); Myelocytes Absolute 0.4 X10*/uL; RBC Morphology NOTED; White Blood Count 11.8 X10*3/uL (4.8-10.8)
--- NOTE | 2022-10-09 11:07 | HO.PM.IMPN ---
Subjective Subjective Date of Service: 10/09/22 Interval History: Unable to provide history, nonverbal, NPO due to aspiration risk waiting for speech therapy eval oxygenation stable no acute issues overnight Review of Systems Review of Systems: Yes Unobtainable due to mental status Physical Exam Vital Signs: Vital Signs: Last Vital Signs Temp 97.1 F 10/09/22 07:57 Pulse 86 10/09/22 07:57 Resp 18 10/09/22 07:57 BP 124/69 10/09/22 07:57 Pulse Ox 97 10/09/22 07:57 O2 Del Method Oxymask 10/09/22 07:57 O2 Flow Rate 3 10/09/22 07:57 FiO2 21 10/02/22 07:00 BMI result Body Mass Index 32.1 Const: Other: Gen:no resp distress Neck: supple Lungs: Bilateral coarse breath sound Heart: regular rate and rhythm Abd: soft, non-tender, non-distended Ext: no edema Skin: warm/well-perfused Neuro: alert, moving all extremities Psych: impaired insight Objective Data Active Medications Acetaminophen (Acetaminophen Supp 650 Mg Supp.Rect) 650 mg [place] Q6H PRN PRN Reason: Fever Last Admin: 10/07/22 01:59 Dose: 650 mg Documented By: ANTDEVORAH Albuterol/Ipratropium (Albuterol/Iprat 2.5/0.5mg 3 Ml Ampul.Neb) 3 ml INHALE RQ4H WHILE AWAKE PRN PRN Reason: sob Last Admin: 10/07/22 23:04 Dose: 3 ml Documented By: FLAQUITA Divalproex Sodium (Divalproex Sodium Sprinkdominic 125 Mg ) 1,000 mg PO BID [facility] Last Admin: 10/09/22 08:20 Dose: 1,000 mg Documented By: DOT Potassium Chloride/Dextrose (Kcl 20 Meq In 5 % Dextrose) 20 meq in 1,000 mls @ 100 mls/hr IVCONT .Q10H [facility] Last Admin: 10/09/22 09:12 Dose: 100 mls/hr Documented By: DOT Lactulose (Lactulose 20 Gm/30 Ml Solution) 20 gm PO BID [facility] Last Admin: 10/09/22 08:04 Dose: Not Given Documented By: DOT Non-Admin Reason: held for diarrhea Levothyroxine Sodium (Levothyroxine Sodium 100 Mcg Tablet) 100 mcg PO DAILY@0600 [facility] Last Admin: 10/09/22 05:42 Dose: Not Given Documented By: ROCIO Non-Admin Reason: NPO Omeprazole (Omeprazole 20 Mg/10 Ml Susp.Recon) 40 mg PO DAILY@0630 [facility] Last Admin: 10/09/22 05:43 Dose: Not Given Documented By: ROCIO Non-Admin Reason: NPO Ondansetron HCl (Ondansetron Hcl 4 Mg/2 Ml Vial) 4 mg IVPUSH Q4H PRN PRN Reason: Nausea and Vomiting Last Admin: 10/05/22 14:18 Dose: 4 mg Documented By: MILTON Quetiapine Fumarate (Quetiapine Fumarate 50 Mg Tablet) 50 mg PO TID [facility] Last Admin: 10/09/22 08:20 Dose: 50 mg Documented By: DOT Zinc Oxide (Zinc Oxide 20% Ointment 28.35 Gm Tube) 1 appl TOPICAL BID [facility]; Protocol Last Admin: 10/09/22 08:21 Dose: 1 appl Documented By: DOT Comments: Labs 10/09/22 06:48 10/09/22 06:48 Labs: Laboratory Results - last 24 hr 10/09/22 10/09/22 06:48 06:48 MCV 100.0 H MCH 28.9 MCHC 28.9 L RDW 18.9 H Plt Count 119 L MPV 10.6 Immature Gran % (Auto) Cancelled Neut % (Auto) Cancelled Lymph % (Auto) Cancelled [place] % (Auto) Cancelled Eos % (Auto) Cancelled Baso % (Auto) Cancelled Lymph # (Auto) Cancelled [place] # (Auto) Cancelled Eos # (Auto) Cancelled Baso # (Auto) Cancelled Abs Immat Gran (auto) Cancelled Absolute Neuts (auto) Cancelled Absolute Nucleated RBC 0.040 H Nucleated RBC % (auto) 0.3 H Neutrophils % (Manual) 64 Band Neutrophils % 4 Lymphocytes % (Manual) 17 L Monocytes % (Manual) 7 Eosinophils % (Manual) 2 Metamyelocytes % 3 Myelocytes % 3 Abs Neuts (Manual) 8.0 Lymphocytes # (Manual) 2.0 Monocytes # (Manual) 0.8 Eosinophils # (Manual) 0.2 Metamyelocytes # 0.4 Myelocytes # 0.4 Platelet Estimate DECREASED Plt Morphology Comment NORMAL RBC Morphology NOTED Hypochromasia 1+ (5-14) Anion Gap 11 L Estim Creat Clear Calc 63.4 Estimated GFR 50 Fasting Glucose 126 H Calcium 9.0 Magnesium 2.1 Total Bilirubin 0.2 AST 11 ALT 5 Alkaline Phosphatase 61 Total Protein 4.9 L Albumin 2.1 L Assessment and Plan (1) Aspiration into respiratory tract: Status: Acute (2) Hypernatremia: Status: Acute Plan 62-year-old lady admitted with UTI/ sepsis required ICU initially for pressors. Successfully weaned off pressures in transfer to floor. Day of discharge vomited and now with likely aspiration pneumonitis 1. Aspiration pneumonitis -NPO , D 10 on IV Zosyn , will DC iv Zosyn Consult speech therapy -oxygenation 97% on 3 L, titrate O2 as tolerated. 2. Hypernatremia/hypokalemia -NPO continue IV fluid D5W with potassium , follow BMP 3. UTI(multpile organisms) -completed course of antibiotics -follow-up clinically 4. Pulmonary embolism (by history) Eliquis on hold due to anemia stool occult test negative will resume Eliquis 2.5 mg b.i.d. 5. Schizoaffective disorder -continue home medications Depakote, Seroquel and resume mirtazepine 7.5 at bedtime 6. Acute on chronic macrocytic anemia status post 2 units of packed RBC hematocrit stable, check B12 folate in follow CBC no active bleeding noted. DVT prophylaxis resume Eliquis Full code Requires ongoing hospitalization for NPO and electrolyte abnormalities receiving IV fluids . Time Spent With Patient Time: Total time managing care of this patient today ____ minutes. Quality Stroke Does the patient have a stroke diagnosis?: No VTE Prior VTE?: No VTE Risk Level:: Medical - moderate - high VTE Device Contraindication: N/A - Device Ordered VTE Drug Contraindication: N/A - Med Ordered
[2022-10-09 11:26] VITALS: BP 125/64; PULSE 94; RESP 20; TEMP 36.1; O2SAT 88
--- NOTE | 2022-10-09 13:21 | MHC.CLN ---
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
--- NOTE | 2022-10-09 13:57 | MHC.CM.PN ---
EMR REVIEWED, PT REMAINS ON NPO D/T ASPIRATION RISK, PT RECEIVING IV FLUIDS AND SUPPLEMENTAL 02, NO PLAN FOR D/C AT THIS TIME. GOAL IF FOR PT TO RETURN TO [facility] ONCE MEDICALLY CLEAR, UPDATE SENT VIA [facility]. CM WILL CONT TO FOLLOW D/C NEEDS.
--- NOTE | 2022-10-09 15:19 | MHC.SPEECHCO ---
Recommending maintain NPO status. JEWELRY CASTING MODEL MAKER attempted this morning, but Pt was too lethargic to participate and have to have items removed from her mouth for failure to process them appropriately. JEWELRY CASTING MODEL MAKER will re-attempt tomorrow morning.
[2022-10-09 15:55] VITALS: BP 150/80; PULSE 92; RESP 17; TEMP 36.9; O2SAT 96
[2022-10-09 20:00] VITALS: BP 138/55; PULSE 92; RESP 17; TEMP 36; O2SAT 96
[2022-10-10] VITALS: BP 112/75; PULSE 88; RESP 22; TEMP 36.4; O2SAT 94
--- NOTE | 2022-10-10 | ECG_ITS ---
Test Reason : afib Blood Pressure : / mmHG Vent. Rate : 104 BPM Atrial Rate : 104 BPM P-R Int : 124 ms QRS Dur : 078 ms QT Int : 350 ms P-R-T Axes : 064 041 109 degrees QTc Int : 460 ms Sinus tachycardia Low voltage QRS Nonspecific T wave abnormality Abnormal ECG When compared with ECG of 02-JAN-2022 12:49, Nonspecific T wave abnormality, worse in Inferior leads Nonspecific T wave abnormality now evident in Lateral leads Referred By: Jacek Cagle Electronically Signed By:Carrillo Bui
[2022-10-10 03:53] VITALS: BP 113/55; PULSE 93; RESP 20; TEMP 36.2; O2SAT 93
[2022-10-10] MEDS: Potassium Chloride/H20 10 MEQ/100 ML PIGGYBACK 100 MEQ IV ×4 (07:27→16:07)
[2022-10-10 07:33] VITALS: BP 117/67; PULSE 105; RESP 20; TEMP 36.6; O2SAT 92
--- NOTE | 2022-10-10 07:39 | PC.NURSE ---
prior to receiving hand off report from night RN, pt was found to be in rapid AFIB with HR in the 160s. Dr. Cagle was called and arrived at bedside to assess patient. An EKG, additional labs, and IV potassium were ordered. All other vitals WNL. pt does not appear to be in distress. Will continue to monitor
[2022-10-10 07:42] LABS: Hematocrit 32.2 % (37.0-47.0); Hemoglobin 9.5 g/dl (12.0-16.0); Mean Corpuscular HGB Conc 29.5 g/dl (31.0-35.0); Mean Corpuscular Hemoglobin 29.5 pg (27.0-33.0); Mean Platelet Volume 11.6 fL (9.4-12.3); NRBC Pct Auto 0.2 /100WBC (0.0-0.2); Platelet Count 123 X10*3/uL (160-400); Red Blood Count 3.22 X10*6/uL (4.20-5.50); Red Cell Distribution Width 18.6 % (11.0-16.0); WBC ABN SCTR FOR CBC 1
[2022-10-10 08:04] LABS: Troponin-I High Sensitivity 5.8 ng/L (<3.5-17.0)
[2022-10-10] MEDS: KCl 20 mEq in 5 % Dextrose 20 MEQ/1,000 ML IV.SOLN 100 MEQ IVCONT (08:17)
[2022-10-10 08:23] LABS: Alanine Aminotransferase < 5 U/L (0-31); Albumin Level 2.2 g/dL (3.5-5.0); Alkaline Phosphatase 68 U/L (39-117); Anion Gap 10 (12-20); Aspartate Amino Transferase 11 U/L (5-31); Bilirubin Total 0.2 mg/dL (0.0-1.0); Blood Urea Nitrogen 10 mg/dL (9-16); Calcium 9.2 mg/dL (8.4-10.2); Carbon Dioxide 21 mmol/L (22-29); Chloride 123 mmol/L (96-108); Creatinine Clr Calc Pharmacy 75.8; Estimated Glomerular Filt Rate > 60; Glucose Fasting 103 mg/dL (60-99); Potassium 2.9 mmol/L (3.3-5.1); Sodium 151 mmol/L (135-145); Total Protein 5.1 g/dL (6.5-8.0)
[2022-10-10 08:28] LABS: Thyroid Stimulating Hormone 9.43 uIU/mL (0.32-4.0)
[2022-10-10 08:32] LABS: Band Neutrophils Percent 3 % (3-5); Eosinophils Percent Manual 5 % (0-4); Lymphocytes Percent Manual 17 % (20-40); Metamyelocytes Percent 1 %; Monocytes Percent Manual 5 % (2-11); Myelocytes Percent 3 %; Neutrophils Percent Manual 66 % (45-73)
[2022-10-10 08:33] LABS: Platelet Estimate DECREASED (NORMAL)
[2022-10-10 08:34] LABS: Platelet Morphology Comment NORMAL
[2022-10-10 08:35] LABS: Polychromasia 1+ (0-2) /OIF
[2022-10-10 08:36] LABS: Folate 3.3 ng/mL (> or = 4.0); Vitamin B12 1381 pg/mL (200-900)
[2022-10-10 08:39] LABS: Hypochromasia 1+ (5-14) /OIF
[2022-10-10 08:40] LABS: Eosinophils Absolute Manual 0.7 X10*3/uL (0.0-0.4); Lymphocytes Absolute Manual 2.4 X10*3/uL (1.2-4.9); Metamyelocytes Absolute 0.1 X10*3/uL; Monocytes Absolute Manual 0.7 X10*3/uL (0.1-1.2); Myelocytes Absolute 0.4 X10*/uL; Neutrophils Absolute Manual 9.9 X10*3/uL (2.0-8.3); White Blood Count 14.3 X10*3/uL (4.8-10.8)
[2022-10-10 11:18] VITALS: BP 128/63; PULSE 115; RESP 18; TEMP 36.2; O2SAT 82
--- NOTE | 2022-10-10 11:19 | PC.NURSE ---
rectal tube inserted at 1100, balloon inflated with 30mL sterile water. pt tolerated procedure well.
[2022-10-10 11:36] LABS: RBC Morphology NOTED
[2022-10-10 11:42] VITALS: BMI 32.1
[2022-10-10 12:51] LABS: Phosphorus 3.1 mg/dL (2.7-4.5)
--- NOTE | 2022-10-10 13:45 | P.PNIM_ITS ---
Subjective Subjective Date of Service: 10/10/22 Interval History: Tele monitor showed tachycardia heart rate up to 160s EKG showed sinus tach, patient unable to provide meaningful history due to underlying schizoaffective disorder/nonverbal, labs showed persistent hypokalemia and hypernatremia, remains NPO Review of Systems Review of Systems: Yes Unobtainable due to mental status Physical Exam Vital Signs: Vital Signs: Last Vital Signs Temp 97.1 F 10/10/22 11:18 Pulse 115 H 10/10/22 11:18 Resp 18 10/10/22 11:18 BP 128/63 10/10/22 11:18 Pulse Ox 82 L 10/10/22 11:18 O2 Del Method Oxymask 10/10/22 11:18 O2 Flow Rate 2 10/10/22 11:18 FiO2 21 10/02/22 07:00 BMI result Body Mass Index 32.1 Const: Other: Gen: Awake, making noises, no resp distress Neck: supple Lungs:? Bilateral coarse breath sound Heart: Tachy regular rate and rhythm Abd: soft, non-tender, non-distended Ext: Bilateral hand edema Skin: warm/well-perfused Neuro: alert, moving all extremities Psych: impaired insight Objective Data Active Medications Acetaminophen (Acetaminophen Supp 650 Mg Supp.Rect) 650 mg SD Q6H PRN PRN Reason: Fever Last Admin: 10/07/22 01:59 Dose: 650 mg Documented By: ANTDEVORAH Albuterol/Ipratropium (Albuterol/Iprat 2.5/0.5mg 3 Ml Ampul.Neb) 3 ml INHALE RQ4H WHILE AWAKE PRN PRN Reason: sob Last Admin: 10/07/22 23:04 Dose: 3 ml Documented By: FLAQUITA Apixaban (Apixaban 2.5 Mg Tablet) 2.5 mg PO BID COUNT INCLUDES [facility] Last Admin: 10/10/22 07:35 Dose: Not Given Documented By: LANA Non-Admin Reason: NPO Divalproex Sodium (Divalproex Sodium Sprinkles 125 Mg ) 1,000 mg PO BID COUNT INCLUDES [facility] Last Admin: 10/10/22 07:35 Dose: Not Given Documented By: LANA Non-Admin Reason: NPO Potassium Chloride (Potassium Chloride/H20) 10 meq in 100 mls @ 100 mls/hr IV Q1H COUNT INCLUDES [facility] Stop: 10/10/22 13:59 Last Admin: 10/10/22 13:22 Dose: 100 mls/hr Documented By: LANA Magnesium Sulfate 10 meq/Potassium Phosphate 30 mmol/Potassium Acetate 40 meq/Amino Acids/Electrolytes/Dextrose 1,080 mls @ 45 mls/hr IVCONT DAILY@1800 COUNT [facility]CLUDES [facility] Stop: 10/11/22 17:59 Lactulose (Lactulose 20 Gm/30 Ml Solution) 20 gm PO BID COUNT [facility]CLUDES [facility] Last Admin: 10/10/22 07:35 Dose: Not Given Documented By: LANA Non-Admin Reason: NPO Levothyroxine Sodium (Levothyroxine Sodium 100 Mcg Tablet) 100 mcg PO DAILY@0600 [facility] Last Admin: 10/10/22 06:15 Dose: Not Given Documented By: ANNALEE Non-Admin Reason: NPO Mirtazapine (Mirtazapine 7.5 Mg Tablet) 7.5 mg PO BEDTIME COUNT [facility]CLUDES [facility] Last Admin: 10/09/22 21:53 Dose: Not Given Documented By: ANNALEE Non-Admin Reason: NPO Omeprazole (Omeprazole 20 Mg/10 Ml Susp.Recon) 40 mg PO DAILY@0630 COUNT [facility]CLUD[facility] Last Admin: 10/10/22 06:15 Dose: Not Given Documented By: ANNALEE Non-Admin Reason: NPO Ondansetron HCl (Ondansetron Hcl 4 Mg/2 Ml Vial) 4 mg IVPUSH Q4H PRN PRN Reason: Nausea and Vomiting Last Admin: 10/05/22 14:18 Dose: 4 mg Documented By: MILTON Quetiapine Fumarate (Quetiapine Fumarate 50 Mg Tablet) 50 mg PO TID COUNT [facility]CLUDES [facility] Last Admin: 10/10/22 07:36 Dose: Not Given Documented By: LANA Non-Admin Reason: NPO Zinc Oxide (Zinc Oxide 20% Ointment 28.35 Gm Tube) 1 appl TOPICAL BID COUNT [facility]CLUDES [facility]; Protocol Last Admin: 10/10/22 07:36 Dose: Not Given Documented By: LANA Non-Admin Reason: NPO Labs 10/10/22 07:17 10/10/22 07:17 Labs: Laboratory Results - last 24 hr 04/25/23 04/25/23 04/25/23 07:17 07:17 07:21 MCV 100.0 H Cancelled MCH 29.5 Cancelled MCHC 29.5 L Cancelled RDW 18.6 H Cancelled Plt Count 123 L Cancelled MPV 11.6 Cancelled Immature Gran % (Auto) Cancelled Neut % (Auto) Cancelled Lymph % (Auto) Cancelled Hart % (Auto) Cancelled Eos % (Auto) Cancelled Baso % (Auto) Cancelled Lymph # (Auto) Cancelled [place] # (Auto) Cancelled Eos # (Auto) Cancelled Baso # (Auto) Cancelled Abs Immat Gran (auto) Cancelled Absolute Neuts (auto) Cancelled Absolute Nucleated RBC 0.030 H Cancelled Nucleated RBC % (auto) 0.2 Cancelled Neutrophils % (Manual) 66 Band Neutrophils % 3 Lymphocytes % (Manual) 17 L Monocytes % (Manual) 5 Eosinophils % (Manual) 5 H Metamyelocytes % 1 Myelocytes % 3 Abs Neuts (Manual) 9.9 H Lymphocytes # (Manual) 2.4 Monocytes # (Manual) 0.7 Eosinophils # (Manual) 0.7 H Metamyelocytes # 0.1 Myelocytes # 0.4 Platelet Estimate DECREASED Plt Morphology Comment NORMAL RBC Morphology NOTED Polychromasia 1+ (0-2) Hypochromasia 1+ (5-14) Anion Gap 10 L Estim Creat Clear Calc 75.8 Estimated GFR > 60 Random Glucose Fasting Glucose 103 H Calcium 9.2 Phosphorus Magnesium 2.0 Total Bilirubin 0.2 AST 11 ALT < 5 Alkaline Phosphatase 68 Troponin I High Sens Total Protein 5.1 L Albumin 2.2 L Vitamin B12 1381 H Folate 3.3 L TSH 10/10/22 10/10/22 10/10/22 07:21 07:21 11:52 MCV MCH MCHC RDW Plt Count MPV Immature Gran % (Auto) Neut % (Auto) Lymph % (Auto) Hart % (Auto) Eos % (Auto) Baso % (Auto) Lymph # (Auto) [place] # (Auto) Eos # (Auto) Baso # (Auto) Abs Immat Gran (auto) Absolute Neuts (auto) Absolute Nucleated RBC Nucleated RBC % (auto) Neutrophils % (Manual) Band Neutrophils % Lymphocytes % (Manual) Monocytes % (Manual) Eosinophils % (Manual) Metamyelocytes % Myelocytes % Abs Neuts (Manual) Lymphocytes # (Manual) Monocytes # (Manual) Eosinophils # (Manual) Metamyelocytes # Myelocytes # Platelet Estimate Plt Morphology Comment RBC Morphology Polychromasia Hypochromasia Anion Gap Cancelled Estim Creat Clear Calc Cancelled Estimated GFR Cancelled Random Glucose Cancelled Fasting Glucose Calcium Cancelled Phosphorus 3.1 Magnesium Cancelled Total Bilirubin AST ALT Alkaline Phosphatase Troponin I High Sens 5.8 Total Protein Albumin Vitamin B12 Folate TSH 9.43 H Assessment and Plan (1) Aspiration into respiratory tract: Status: Acute (2) Hypernatremia: Status: Acute Plan 62-year-old lady admitted with UTI/ sepsis required ICU initially for pressors. Successfully weaned off pressures in transfer to floor. Day of discharge vomited and now with likely aspiration pneumonitis 1. Aspiration pneumonitis -finish 10 day course of IV antibiotic, re-evaluated by speech therapy today they recommended pureed and nectar thick liquids diet ordered Will DC IV fluids , continue speech therapy evaluation -oxygenation 97% on 3 L, titrate O2 as tolerated. 2. Hypernatremia/hypokalemia -DC IV fluid placed on PPN replace potassium aggressively follow labs closely 3. UTI(multpile organisms) -completed course of antibiotics -follow-up clinically 4. Pulmonary embolism (by history) on Eliquis , monitor closely for anemia . 5. Schizoaffective disorder -continue home medications Depakote, Seroquel and mirtazepine 7.5 at bedtime 6. Acute on chronic macrocytic anemia status post 2 units of packed RBC hematocrit stable, normal B12, low folate Repeat hematocrit stable will replace folic acid 1 mg daily 7. Dysphagia seen by speech therapy today they are recommending pureed and nectar thank liquids with aspiration precautions and oxygen via nasal cannula during feeds. 8. Acute hypoxic respiratory failure, last chest x-ray showed atelectasis, will add incentive spirometry repeat chest x-ray if noted to have worsening hypoxia continue O2 support DVT prophylaxis on Eliquis Full code Requires ongoing hospitalization for dysphagia and electrolyte abnormalities receiving IV ppn Time Spent With Patient Time: Total time managing care of this patient today ____ minutes. Quality Stroke Does the patient have a stroke diagnosis?: No VTE Prior VTE?: No VTE Risk Level:: Medical - moderate - high VTE Device Contraindication: N/A - Device Ordered VTE Drug Contraindication: N/A - Med Ordered
[2022-10-10 15:44] VITALS: BP 124/67; PULSE 103; RESP 17; TEMP 36.5; O2SAT 94
[2022-10-10 19:01] LABS: Anion Gap 9 (12-20); Blood Urea Nitrogen 9 mg/dL (9-16); Calcium 9.2 mg/dL (8.4-10.2); Carbon Dioxide 22 mmol/L (22-29); Chloride 126 mmol/L (96-108); Creatinine Clr Calc Pharmacy 74.2; Estimated Glomerular Filt Rate > 60; Glucose Random 80 mg/dL (60-115); Potassium 3.4 mmol/L (3.3-5.1); Sodium 154 mmol/L (135-145)
[2022-10-10 19:44] VITALS: BP 122/71; PULSE 97; RESP 16; TEMP 36.2; O2SAT 97
[2022-10-10] MEDS: Divalproex Sodium Sprinkles 125 MG CAP.DR.SPR 1000 MG PO (22:24)
[2022-10-10] MEDS: Mirtazapine 7.5 MG TABLET PO (22:24)
[2022-10-10] MEDS: QUEtiapine Fumarate 50 MG TABLET PO (22:24)
[2022-10-10] MEDS: Piperacillin Sodium/Tazobactam 3.375 GM in 0.9 % Sodium Chloride 50 ML IV (23:07)
[2022-10-10] MEDS: Apixaban 2.5 MG TABLET PO (23:07)
[2022-10-10] MEDS: Zinc Oxide 20% Ointment 28.35 GM TUBE 1 APPL TOPICAL (23:09)
[2022-10-11] VITALS (7 sets, daily range): BP systolic 100–131; BP diastolic 52–59; PULSE 93–100; RESP 14–20; TEMP 36.4–36.9; O2SAT 89–98
[2022-10-11] MEDS: Piperacillin Sodium/Tazobactam 3.375 GM in 0.9 % Sodium Chloride 50 ML IV ×4 (03:13→23:00)
[2022-10-11] MEDS: Levothyroxine Sodium 100 MCG TABLET PO (04:56)
[2022-10-11 08:09] LABS: Hematocrit 29.9 % (37.0-47.0); Hemoglobin 8.5 g/dl (12.0-16.0); Mean Corpuscular HGB Conc 28.4 g/dl (31.0-35.0); Mean Corpuscular Hemoglobin 28.9 pg (27.0-33.0); Mean Corpuscular Volume 101.7 fL (80.0-98.0); Mean Platelet Volume 11.1 fL (9.4-12.3); NRBC Pct Auto 0.2 /100WBC (0.0-0.2); Platelet Count 117 X10*3/uL (160-400); Red Blood Count 2.94 X10*6/uL (4.20-5.50); White Blood Count 12.6 X10*3/uL (4.8-10.8)
[2022-10-11 08:21] LABS: Alanine Aminotransferase 5 U/L (0-31); Albumin Level 2.1 g/dL (3.5-5.0); Alkaline Phosphatase 63 U/L (39-117); Anion Gap 10 (12-20); Aspartate Amino Transferase 12 U/L (5-31); Bilirubin Total 0.2 mg/dL (0.0-1.0); Blood Urea Nitrogen 10 mg/dL (9-16); Calcium 9.3 mg/dL (8.4-10.2); Carbon Dioxide 22 mmol/L (22-29); Chloride 127 mmol/L (96-108); Creatinine Clr Calc Pharmacy 75.8; Estimated Glomerular Filt Rate > 60; Glucose Fasting 124 mg/dL (60-99); Glucose Random 124 mg/dL (60-115); Magnesium 2.1 mg/dL (1.6-2.6); Potassium 3.4 mmol/L (3.3-5.1); Sodium 156 mmol/L (135-145); Total Protein 4.9 g/dL (6.5-8.0)
[2022-10-11 08:55] LABS: Band Neutrophils Percent 7 % (3-5); Lymphocytes Absolute Manual 2.8 X10*3/uL (1.2-4.9); Lymphocytes Percent Manual 22 % (20-40); Metamyelocytes Absolute 0.5 X10*3/uL; Metamyelocytes Percent 4 %; Monocytes Percent Manual 8 % (2-11); Myelocytes Absolute 0.3 X10*/uL; Myelocytes Percent 2 %; Neutrophils Absolute Manual 8.1 X10*3/uL (2.0-8.3); Neutrophils Percent Manual 57 % (45-73)
[2022-10-11 08:58] LABS: Hypochromasia 1+ (5-14) /OIF; Macrocytosis 1+ (5-14) /OIF; Platelet Estimate DECREASED (NORMAL); Polychromasia 1+ (0-2) /OIF; RBC Morphology NOTED
[2022-10-11 08:59] LABS: Microcytosis 1+ (5-14) /OIF; Platelet Morphology Comment NORM
[2022-10-11] MEDS: Albumin Human 25 % 100 ML IV ×3 (09:34→20:28)
[2022-10-11] MEDS: Folic Acid 1 MG TABLET PO (09:34)
[2022-10-11] MEDS: Divalproex Sodium Sprinkles 125 MG CAP.DR.SPR 1000 MG PO ×2 (09:34→20:38)
[2022-10-11] MEDS: QUEtiapine Fumarate 50 MG TABLET PO ×3 (09:34→20:38)
--- NOTE | 2022-10-11 10:57 | PM.CNNEP ---
History of Present Illness Reason for Consult Consult date: 10/11/22 Chief Complaint Chief complaint: sepsis History of Present Illness Narrative: 62-year-old female who [facility] to [facility] emergency room. She is bed-bound for several years and has had resistant UTIs & has a chronic Randall catheter due to retention. In the ER she had low blood pressure and was given IV fluids , antibiotics along with Levophed.? Initial workup reveal a white count 21.5, H&H of 8.731.9, MCV 101.9, platelets 568.? Sodium 146, potassium 4.4, chloride 106, carbon dioxide 20, anion gap 16, BUN 23, creatinine 1.20, lactic acid 4, albumin 2.4.?She was subsequently transferred out of ICU to floor. She has been hypernatremic with significant water deficit . Nephrology has been consulted to assist in her clinical care during her current hospital stay? Review of Systems Review of Systems Yes Unobtainable due to mental condition PMFSH Past Medical History Medical History (Updated 10/07/22 @ 10:47 by Guille Willett DO) Chronic kidney disease, stage 3 COVID Hx of buttermaker use of blood thinners Hypertension Intellectual disability Pressure sore on ankle Pulmonary embolism Schizoaffective disorder Social History Social History Household Members: Unknown / Unable to assess Housing: Unknown / Unable to assess Unable to assess alcohol history related to: Unable to respond Patient Tobacco Use Status: Tobacco use Unknown Use of substances other than those prescribed or required for medical reasons: Unknown Currently Displaying Signs/Symptoms of Drug Intoxication Withdrawal: No Advance Directives: No Advance Directives Information Provided: No Recently lost weight without trying: Unsure Patient : No service: No Current occupational status: disabled Meds Allergies Allergy/AdvReac Type Severity Reaction Status Date / Time Unable to Assess Allergy Verified 01/02/22 11:20 Active Medications: Current Medications Acetaminophen (Acetaminophen Supp 650 Mg Supp.Rect) 650 mg [place] Q6H PRN PRN Reason: Fever Last Admin: 10/07/22 01:59 Dose: 650 mg Albuterol/Ipratropium (Albuterol/Iprat 2.5/0.5mg 3 Ml Ampul.Neb) 3 ml INHALE RQ4H WHILE AWAKE PRN PRN Reason: sob Last Admin: 10/07/22 23:04 Dose: 3 ml Apixaban (Apixaban 2.5 Mg Tablet) 2.5 mg PO BID [facility] Last Admin: 10/11/22 10:17 Dose: Not Given Divalproex Sodium (Divalproex Sodium Sprinkles 125 Mg ) 1,000 mg PO BID [facility] Last Admin: 10/11/22 09:34 Dose: 1,000 mg Folic Acid (Folic Acid 1 Mg Tablet) 1 mg PO DAILY [facility] Last Admin: 10/11/22 09:34 Dose: 1 mg Magnesium Sulfate 10 meq/Potassium Phosphate 30 mmol/Potassium Acetate 40 meq/Amino Acids/Electrolytes/Dextrose 1,080 mls @ 45 mls/hr IVCONT DAILY@1800 [facility] Stop: 10/11/22 17:59 Last Admin: 10/10/22 19:47 Dose: 45 mls/hr Piperacillin Sod/Tazobactam (Sod 3.375 gm/ Sodium Chloride) 50 mls @ 100 mls/hr IV Q6H [facility] Last Infusion: 10/11/22 10:17 Dose: Infused Albumin Human (Kedbumin 25 %) 100 mls @ 100 mls/hr IV Q6H [facility] Stop: 10/12/22 03:44 Last Admin: 10/11/22 09:34 Dose: 100 mls/hr Dextrose (D5w) 1,000 mls @ 125 mls/hr IVCONT .Q8H [facility] Lactulose (Lactulose 20 Gm/30 Ml Solution) 20 gm PO BID [facility] Last Admin: 10/11/22 09:35 Dose: Not Given Levothyroxine Sodium (Levothyroxine Sodium 100 Mcg Tablet) 100 mcg PO DAILY@0600 [facility] Last Admin: 10/11/22 04:56 Dose: 100 mcg Mirtazapine (Mirtazapine 7.5 Mg Tablet) 7.5 mg PO BEDTIME [facility] Last Admin: 10/10/22 22:24 Dose: 7.5 mg Omeprazole (Omeprazole 20 Mg/10 Ml Susp.Recon) 40 mg PO DAILY@0630 [facility] Last Admin: 10/11/22 04:57 Dose: 40 mg Ondansetron HCl (Ondansetron Hcl 4 Mg/2 Ml Vial) 4 mg IVPUSH Q4H PRN PRN Reason: Nausea and Vomiting Last Admin: 10/05/22 14:18 Dose: 4 mg Quetiapine Fumarate (Quetiapine Fumarate 50 Mg Tablet) 50 mg PO TID [facility] Last Admin: 10/11/22 09:34 Dose: 50 mg Zinc Oxide (Zinc Oxide 20% Ointment 28.35 Gm Tube) 1 appl TOPICAL BID [facility]; Protocol Last Admin: 10/10/22 23:09 Dose: 1 appl Home Medications Medication Instructions Recorded Confirmed Last Taken Type acetaminophen 500 mg tablet 1,000 mg PO TID PRN Pain 01/02/22 09/29/22 Unknown History apixaban 2.5 mg tablet (Eliquis) 2.5 mg PO BID 01/02/22 09/29/22 Unknown History atorvastatin 10 mg tablet 10 mg PO BEDTIME 01/02/22 09/29/22 Unknown History divalproex 125 mg capsule,delayed 1,000 mg PO BID 01/02/22 09/29/22 Unknown History release sprinkle lactulose 10 gram/15 mL oral 20 g PO BID 01/02/22 09/29/22 Unknown History solution (Enulose) levothyroxine 100 mcg capsule 100 mcg PO DAILY 01/02/22 09/29/22 Unknown History mirtazapine 7.5 mg tablet 7.5 mg PO BEDTIME 01/02/22 09/29/22 Unknown History quetiapine 50 mg tablet 50 mg PO TID 01/02/22 09/29/22 Unknown History trazodone 100 mg tablet 200 mg PO BID 01/02/22 09/29/22 Unknown History ascorbic acid (vitamin C) 1,000 mg 1,000 mg PO BID 09/29/22 09/29/22 Unknown History tablet (Vitamin C) ascorbic acid (vitamin C) 250 mg 250 mg PO BID 09/29/22 09/29/22 Unknown History tablet (Vitamin C) bisacodyl 10 mg rectal suppository 10 mg [place] DAILY PRN Constipation 09/29/22 09/29/22 Unknown History tramadol 50 mg tablet 50 mg PO BID PRN Pain 09/29/22 09/29/22 Unknown History Physical Exam Vital Signs: Last Vital Signs Temp 97.5 F 10/11/22 07:18 Pulse 97 10/11/22 07:18 Resp 18 10/11/22 07:18 BP 114/52 L 10/11/22 07:18 Pulse Ox 91 L 10/11/22 07:18 O2 Del Method Oxymask 10/11/22 07:18 O2 Flow Rate 5 10/11/22 07:18 FiO2 21 10/02/22 07:00 BMI result Body Mass Index 32.1 Const General: no acute distress Resp Auscultation: diminished lung sounds Cardio Rate: regular rate GI Palpation (GI): Soft to palpation Neuro General: moves all extremities Results Lab Results 10/11/22 07:48 10/11/22 07:48 Lab results: Chemistry 10/09/22 10/10/22 10/10/22 06:48 07:17 07:21 Sodium 152 H 151 H Cancelled Potassium 2.8 L 2.9 L Cancelled Carbon Dioxide 23 21 L Cancelled BUN 12 10 Cancelled Creatinine 1.10 0.92 Cancelled Calcium 9.0 9.2 Cancelled Phosphorus 10/10/22 10/10/22 10/11/22 11:52 18:25 07:48 Sodium 154 H 156 H Potassium 3.4 3.4 Carbon Dioxide 22 22 BUN 9 10 Creatinine 0.94 0.92 Calcium 9.2 9.3 Phosphorus 3.1 Hematology 10/09/22 10/10/22 10/10/22 06:48 07:17 07:21 WBC 11.8 H 14.3 H Cancelled Hgb 8.8 L 9.5 L Cancelled Plt Count 119 L 123 L Cancelled 10/11/22 07:48 WBC 12.6 H Hgb 8.5 L Plt Count 117 L Assessment and Plan (1) Hypernatremia: Status: Acute Time Spent With Patient Time: Has significant water deficit Started on D5W @ 125/hour Needs to increase free water in TPN Needs to closely monitor electrolytes Shall closely follow up Procedures Date of Service Date of Service: 10/11/22
[2022-10-11] MEDS: Dextrose 5 % 1,000 ML 125 ML IVCONT ×2 (11:32→23:00)
[2022-10-11 11:57] LABS: Phosphorus 3.1 mg/dL (2.7-4.5)
--- NOTE | 2022-10-11 12:51 | MHC.CM.PN ---
EMR REVIEWED, PT W/INCREASING HYPERNATREMIA, PER NEPHROLOGY PLAN FOR INCREASED FLUIDS. NO PLAN FOR D/C AT THIS TIME, PLAN REMAINS FOR RETURN TO [facility] ONCE MEDICALLY CLEARED, CM WILL CONT TO FOLLOW.
[2022-10-11 14:02] LABS: Triglycerides 187 mg/dL
--- NOTE | 2022-10-11 15:47 | HO.PM.IMPN ---
Subjective Subjective Date of Service: 10/11/22 Interval History: Patient nonverbal, no acute events overnight oxygenation stable on 5 L of oxygen, chest x-ray from yesterday showed increasing airspace disease at the left lung base probably representing pneumonia. Review of Systems Review of Systems: Yes Unobtainable due to mental status Physical Exam Vital Signs: Vital Signs: Last Vital Signs Temp 97.5 F 10/11/22 11:31 Pulse 95 10/11/22 11:31 Resp 20 10/11/22 11:31 BP 108/58 L 10/11/22 11:31 Pulse Ox 95 10/11/22 11:31 O2 Del Method Oxymask 10/11/22 11:31 O2 Flow Rate 5 10/11/22 11:31 FiO2 21 10/02/22 07:00 BMI result Body Mass Index 32.1 Const: Other: Gen:? Awake, makin g noises, no resp distress Gurgling sound upper airway Neck: supple Lung s:? Bilateral coar se breath sound He art:? Tachy regula r rate and rhythm Abd: soft, non-ten josemanuel, non-distended Ext:? Bilateral u pper extremity manav ma Skin: warm/well -perfused Neuro: a lert, moving all e xtremities Psych: impaired insight Objective Data Active Medications Acetaminophen (Acetaminophen Supp 650 Mg Supp.Rect) 650 mg [place] Q6H PRN PRN Reason: Fever Last Admin: 10/07/22 01:59 Dose: 650 mg Documented By: ANTDEVORAH Albuterol/Ipratropium (Albuterol/Iprat 2.5/0.5mg 3 Ml Ampul.Neb) 3 ml INHALE RQ4H WHILE AWAKE PRN PRN Reason: sob Last Admin: 10/07/22 23:04 Dose: 3 ml Documented By: FLAQUITA Apixaban (Apixaban 2.5 Mg Tablet) 2.5 mg PO BID [facility] Last Admin: 10/11/22 10:17 Dose: Not Given Documented By: LANA Non-Admin Reason: waiting for med to be restocked Divalproex Sodium (Divalproex Sodium Sprinkles 125 Mg ) 1,000 mg PO BID [facility] Last Admin: 10/11/22 09:34 Dose: 1,000 mg Documented By: LANA Folic Acid (Folic Acid 1 Mg Tablet) 1 mg PO DAILY [facility] Last Admin: 10/11/22 09:34 Dose: 1 mg Documented By: LANA Magnesium Sulfate 10 meq/Potassium Phosphate 30 mmol/Potassium Acetate 40 meq/Amino Acids/Electrolytes/Dextrose 1,080 mls @ 45 mls/hr IVCONT DAILY@1800 [facility] Stop: 10/11/22 17:59 Last Admin: 10/10/22 19:47 Dose: 45 mls/hr Documented By: ROCIO Piperacillin Sod/Tazobactam (Sod 3.375 gm/ Sodium Chloride) 50 mls @ 100 mls/hr IV Q6H [facility] Last Infusion: 10/11/22 15:02 Dose: 0 mls/hr Documented By: LANA Albumin Human (Kedbumin 25 %) 100 mls @ 100 mls/hr IV Q6H [facility] Stop: 10/12/22 03:44 Last Infusion: 10/11/22 15:37 Dose: 0 mls/hr Documented By: CATHY Dextrose (D5w) 1,000 mls @ 125 mls/hr IVCONT .Q8H [facility] Last Admin: 10/11/22 11:32 Dose: 125 mls/hr Documented By: LANA Magnesium Sulfate 10 meq/Potassium Phosphate 30 mmol/Potassium Acetate 40 meq/Multivitamins 10 ml/ Trace Metals 1 ml/ Amino Acids/Dextrose 1,680 mls @ 70 mls/hr IV DAILY@1800 [facility] Stop: 10/12/22 17:59 Lactulose (Lactulose 20 Gm/30 Ml Solution) 20 gm PO BID [facility] Last Admin: 10/11/22 09:35 Dose: Not Given Documented By: LANA Non-Admin Reason: liquid stools Levothyroxine Sodium (Levothyroxine Sodium 100 Mcg Tablet) 100 mcg PO DAILY@0600 [facility] Last Admin: 10/11/22 04:56 Dose: 100 mcg Documented By: ROCIO Mirtazapine (Mirtazapine 7.5 Mg Tablet) 7.5 mg PO BEDTIME [facility] Last Admin: 10/10/22 22:24 Dose: 7.5 mg Documented By: ROCIO Omeprazole (Omeprazole 20 Mg/10 Ml Susp.Recon) 40 mg PO DAILY@0630 [facility] Last Admin: 10/11/22 04:57 Dose: 40 mg Documented By: ROCIO Ondansetron HCl (Ondansetron Hcl 4 Mg/2 Ml Vial) 4 mg IVPUSH Q4H PRN PRN Reason: Nausea and Vomiting Last Admin: 10/05/22 14:18 Dose: 4 mg Documented By: MILTON Quetiapine Fumarate (Quetiapine Fumarate 50 Mg Tablet) 50 mg PO TID [facility] Last Admin: 10/11/22 14:05 Dose: 50 mg Documented By: LANA Zinc Oxide (Zinc Oxide 20% Ointment 28.35 Gm Tube) 1 appl TOPICAL BID [facility]; Protocol Last Admin: 10/11/22 11:00 Dose: Not Given Documented By: LANA Non-Admin Reason: Previously Administered Labs 10/11/22 07:48 10/11/22 07:48 Labs: Laboratory Results - last 24 hr 10/10/22 10/11/22 10/11/22 18:25 07:48 07:48 MCV 101.7 H MCH 28.9 MCHC 28.4 L RDW 19.0 H Plt Count 117 L MPV 11.1 Immature Gran % (Auto) Cancelled Neut % (Auto) Cancelled Lymph % (Auto) Cancelled [place] % (Auto) Cancelled Eos % (Auto) Cancelled Baso % (Auto) Cancelled Lymph # (Auto) Cancelled [place] # (Auto) Cancelled Eos # (Auto) Cancelled Baso # (Auto) Cancelled Abs Immat Gran (auto) Cancelled Absolute Neuts (auto) Cancelled Absolute Nucleated RBC 0.030 H Nucleated RBC % (auto) 0.2 Neutrophils % (Manual) 57 Band Neutrophils % 7 H Lymphocytes % (Manual) 22 Monocytes % (Manual) 8 Metamyelocytes % 4 Myelocytes % 2 Abs Neuts (Manual) 8.1 Lymphocytes # (Manual) 2.8 Monocytes # (Manual) 1.0 Metamyelocytes # 0.5 Myelocytes # 0.3 Platelet Estimate DECREASED Plt Morphology Comment NORM RBC Morphology NOTED Polychromasia 1+ (0-2) Hypochromasia 1+ (5-14) Microcytosis 1+ (5-14) Macrocytosis 1+ (5-14) Anion Gap 9 L 10 L Estim Creat Clear Calc 74.2 75.8 Estimated GFR > 60 > 60 Random Glucose 80 124 H Fasting Glucose 124 H Calcium 9.2 9.3 Phosphorus 3.1 Magnesium 2.1 Total Bilirubin 0.2 AST 12 ALT 5 Alkaline Phosphatase 63 Total Protein 4.9 L Albumin 2.1 L Triglycerides 10/11/22 07:48 MCV MCH MCHC RDW Plt Count MPV Immature Gran % (Auto) Neut % (Auto) Lymph % (Auto) [place] % (Auto) Eos % (Auto) Baso % (Auto) Lymph # (Auto) [place] # (Auto) Eos # (Auto) Baso # (Auto) Abs Immat Gran (auto) Absolute Neuts (auto) Absolute Nucleated RBC Nucleated RBC % (auto) Neutrophils % (Manual) Band Neutrophils % Lymphocytes % (Manual) Monocytes % (Manual) Metamyelocytes % Myelocytes % Abs Neuts (Manual) Lymphocytes # (Manual) Monocytes # (Manual) Metamyelocytes # Myelocytes # Platelet Estimate Plt Morphology Comment RBC Morphology Polychromasia Hypochromasia Microcytosis Macrocytosis Anion Gap Estim Creat Clear Calc Estimated GFR Random Glucose Fasting Glucose Calcium Phosphorus Magnesium Total Bilirubin AST ALT Alkaline Phosphatase Total Protein Albumin Triglycerides 187 Assessment and Plan (1) Aspiration into respiratory tract: Status: Acute (2) Hypernatremia: Status: Acute Plan 62-year-old lady admitted with UTI/ sepsis required ICU initially for pressors. Successfully weaned off pressures in transfer to floor. Day of discharge vomited and now with likely aspiration pneumonitis 1. Aspiration pneumonitis -finish 10 day course of IV antibiotic, re-evaluated by speech therapy they recommended pureed and nectar thick liquids diet 2. Hypernatremia/hypokalemia -hypokalemia resolved with aggressive treatment, persistent hypernatremia, obtained Nephrology consultation will place on IV D5W follow labs 3. Acute hypoxic respiratory failure, repeat chest x-ray showed new left base opacity question pneumonia since patient at high risk for aspiration will place on IV Zosyn continue oxygen support and gradually wean Frequent suctioning and close monitoring for aspiration with one-to-one feed , keep head of bed elevated. 4. Pulmonary embolism (by history) on Eliquis , monitor closely for anemia . 5. Schizoaffective disorder -continue home medications Depakote, Seroquel and mirtazepine 7.5 at bedtime 6. Acute on chronic macrocytic anemia status post 2 units of packed RBC hematocrit stable, normal B12, low folate Repeat hematocrit stable , folic acid 1 mg daily 7. Dysphagia seen by speech therapy they recommended pureed and nectar thank liquids with aspiration precautions and oxygen via nasal cannula during feeds. Patient with decreased by mouth intake hypoalbuminemia therefore placed on IV TPN will discussed with guardian regarding alternative route of feeding. 8. UTI(multpile organisms) -completed course of antibiotics. 9. Hypothyroidism continue levothyroxine. DVT prophylaxis on Eliquis Full code Requires ongoing hospitalization for dysphagia and electrolyte abnormalities receiving IV tpn,and hypoxia Time Spent With Patient Time: Total time managing care of this patient today ____ minutes. Quality Stroke Does the patient have a stroke diagnosis?: No VTE Prior VTE?: No VTE Risk Level:: Medical - moderate - high VTE Device Contraindication: N/A - Device Ordered VTE Drug Contraindication: N/A - Med Ordered
--- NOTE | 2022-10-11 16:05 | PC.NURSE ---
TLC to the right IJ came out accidentally during repositioning , occlusive dressing applied ,no bleeding
--- NOTE | 2022-10-11 16:06 | MHC.SL.SWA ---
Addendum entered and electronically signed by Brenda Velarde MA, CCC-TECHNICAL SUPPORT DIRECTOR 10/11/22 16:27: D.S. Original Note: Speech Pathologist Impression: Dysphagia Risk of Aspiration Due to: History of Pneumonia Reduced Cognition Dysphasia Diet Status: No change Liquid Consistency and Strategies for Safe Swallow: Liquid Intake Recommendation: [place] Thick Liquid Intake Strategies: Small Sips No Straws Solid Food Consistency: Dietary Recommendations: Pureed (NDD1) Oral Medication Intake: Crushed with Puree Please contact the pharmacy regarding appropriate crushable or liquid drug formulations that are available whenever modified delivery is recommended. Compensatory Strategies and Precautions to be Taken for Safe Swallow: Sitting Upright (90 deg) Small Bites and Sips Alternate Liquids/Solids Oral Check Supervision While Eating and Drinking for Safe Swallow: Total Assistance (1:1) Foods to Avoid: Sticky or congealed purees, mixed consistencies. Swallowing Recommended Treatments: Compens. Strategy Educat. Recommendation for Speech: Inpatient Speech Therapy Per SNF, pt's baseline is pureed solids (NDD1) and thin liquids. Continue to recommend Puree Solids (NDD1), [place]-Thick Liquids, pills crushed in puree. Pt requires 1-1 feed. Do not feed if patient is not engaged with PO or not opening mouth to accept PO. Aspiration precautions apply. Superintendent Distribution Clinican/Clinical Fellow: Yes: Virginia Holden M.A., CF-TECHNICAL SUPPORT DIRECTOR
--- NOTE | 2022-10-11 16:08 | PC.NURSE ---
DR Cagle was notified and order for midline was placed
--- NOTE | 2022-10-11 16:56 | ECG_ITS ---
Test Reason : Rapid A Fib Blood Pressure : / mmHG Vent. Rate : 110 BPM Atrial Rate : 000 BPM P-R Int : 000 ms QRS Dur : 072 ms QT Int : 282 ms P-R-T Axes : 000 020 139 degrees QTc Int : 381 ms Artifact Sinus tachycardia Nonspecific ST and T wave abnormality Abnormal ECG When compared with ECG of 10-OCT-2022 07:20, No significant changes seen Referred By: Jacek Cagle Electronically Signed By:Carrillo Bui
--- NOTE | 2022-10-11 17:27 | PC.NURSE ---
tachycardia 150's , ekg reviewed by DR Cagle : sinus tach , heart rate decreased to 108 . IV pherypheral by IR RN # [id number] to angelica gaitan
[2022-10-11] MEDS: Mirtazapine 7.5 MG TABLET PO (20:38)
[2022-10-11] MEDS: Apixaban 2.5 MG TABLET PO (20:48)
[2022-10-11] MEDS: Zinc Oxide 20% Ointment 28.35 GM TUBE 1 APPL TOPICAL (20:48)
[2022-10-12 03:33] VITALS: BP 107/56; PULSE 84; RESP 120; TEMP 36.7; O2SAT 97
[2022-10-12] MEDS: Dextrose 5 % 1,000 ML 125 ML IVCONT ×2 (03:33→13:12)
[2022-10-12] MEDS: Albumin Human 25 % 100 ML IV (03:33)
[2022-10-12] MEDS: Piperacillin Sodium/Tazobactam 3.375 GM in 0.9 % Sodium Chloride 50 ML IV ×3 (04:47→16:38)
[2022-10-12] MEDS: Levothyroxine Sodium 100 MCG TABLET PO (04:47)
[2022-10-12 06:38] LABS: Triglycerides 143 mg/dL
[2022-10-12 07:15] VITALS: BP 96/60; PULSE 82; RESP 18; TEMP 36.4; O2SAT 93
[2022-10-12 08:21] LABS: Anion Gap 11 (12-20)
[2022-10-12 08:34] LABS: Blood Urea Nitrogen 8 mg/dL (9-16); Calcium 9.5 mg/dL (8.4-10.2); Carbon Dioxide 21 mmol/L (22-29); Chloride 131 mmol/L (96-108); Creatinine Clr Calc Pharmacy 73.4; Estimated Glomerular Filt Rate 59; Glucose Random 93 mg/dL (60-115); Magnesium 2.1 mg/dL (1.6-2.6); Phosphorus 3.1 mg/dL (2.7-4.5); Potassium 3.1 mmol/L (3.3-5.1); Sodium 160 mmol/L (135-145)
--- NOTE | 2022-10-12 08:56 | P.CONGS_ITS ---
History of Present Illness Consult details Consult date: 10/12/22 <Fatuma Walker PA-C - Last Filed: 10/12/22 10:39> Reason for consult: other (PEG tube) <CAN Krishnamurthy Last Filed: 10/12/22 10:39> Requesting physician: Jacek Cagle <CAN Krishnamurthy Last Filed: 10/12/22 10:39> Narrative: 62 year old noncommunicative female with PMH of developmental disorder, sc hizoaffective disorder, PE on eliquis who was admitted with urosepsis requiring ICU initially for pressors. She was successfully weaned off pressures and transferred to [facility] floor.?She subsequently vomited and developed aspiration pneumonitis and was treated for 10d with IV zosyn. She was evaluated by speech therapy who recommended pureed and [place] thick liquids with aspiration precautions and oxygen via nasal cannula during feeds. Patient's oral intake has decreased and developed hypoalbuminemia, therefore TPN initiated. Alternative routes of feeding discussed with guardian including feeding tube. Surgery consulted for possible PEG tube placement. No reports of abdominal surgery on EMR. Unable to obtain ROS. <CAN Krishnamurthy Last Filed: 10/12/22 10:39> [facility] Past Medical History Medical History: Medical History (Updated 10/07/22 @ 10:47 by Guille Willett DO) Chronic kidney disease, stage 3 COVID Hx of longterm use of blood thinners Hypertension Intellectual disability Pressure sore on ankle Pulmonary embolism Schizoaffective disorder <Fatuma Walker PA-C - Last Filed: 10/12/22 10:39> Social History Social History: Social History Household Members: Unknown / Unable to assess Housing: Unknown / Unable to assess Unable to assess alcohol history related to: Unable to respond Patient Tobacco Use Status: Tobacco use Unknown Use of substances other than those prescribed or required for medical reasons: Unknown Currently Displaying Signs/Symptoms of Drug Intoxication Withdrawal: No Advance Directives: No Advance Directives Information Provided: No Recently lost weight without trying: Unsure Patient : No service: No Current occupational status: disabled <CAN Krishnamurthy Last Filed: 10/12/22 10:39> Meds Allergies/Adverse reactions: Allergies Allergy/AdvReac Type Severity Reaction Status Date / Time Unable to Assess Allergy Verified 01/02/22 11:20 <Fatuma Walker PA-C - Last Filed: 10/12/22 10:39> Active Medications: Current Medications Acetaminophen (Acetaminophen Supp 650 Mg Supp.Rect) 650 mg HI Q6H PRN PRN Reason: Fever Last Admin: 10/07/22 01:59 Dose: 650 mg Albuterol/Ipratropium (Albuterol/Iprat 2.5/0.5mg 3 Ml Ampul.Neb) 3 ml INHALE RQ4H WHILE AWAKE PRN PRN Reason: sob Last Admin: 10/07/22 23:04 Dose: 3 ml Apixaban (Apixaban 2.5 Mg Tablet) 2.5 mg PO BID [facility] Last Admin: 10/11/22 20:48 Dose: 2.5 mg Divalproex Sodium (Divalproex Sodium Sprinkles 125 Mg ) 1,000 mg PO BID [facility] Last Admin: 10/11/22 20:38 Dose: 1,000 mg Folic Acid (Folic Acid 1 Mg Tablet) 1 mg PO DAILY [facility] Last Admin: 10/11/22 09:34 Dose: 1 mg Piperacillin Sod/Tazobactam (Sod 3.375 gm/ Sodium Chloride) 50 mls @ 100 mls/hr IV Q6H [facility] Last Infusion: 10/12/22 05:26 Dose: Infused Dextrose (D5w) 1,000 mls @ 125 mls/hr IVCONT .Q8H [facility] Last Admin: 10/12/22 03:33 Dose: 125 mls/hr Lactulose (Lactulose 20 Gm/30 Ml Solution) 20 gm PO BID [facility] Last Admin: 10/11/22 20:38 Dose: Not Given Levothyroxine Sodium (Levothyroxine Sodium 100 Mcg Tablet) 100 mcg PO DAILY@0600 [facility] Last Admin: 10/12/22 04:47 Dose: 100 mcg Mirtazapine (Mirtazapine 7.5 Mg Tablet) 7.5 mg PO BEDTIME [facility] Last Admin: 10/11/22 20:38 Dose: 7.5 mg Omeprazole (Omeprazole 20 Mg/10 Ml Susp.Recon) 40 mg PO DAILY@0630 [facility] Last Admin: 10/12/22 04:47 Dose: 40 mg Ondansetron HCl (Ondansetron Hcl 4 Mg/2 Ml Vial) 4 mg IVPUSH Q4H PRN PRN Reason: Nausea and Vomiting Last Admin: 10/05/22 14:18 Dose: 4 mg Quetiapine Fumarate (Quetiapine Fumarate 50 Mg Tablet) 50 mg PO TID [facility] Last Admin: 10/11/22 20:38 Dose: 50 mg Zinc Oxide (Zinc Oxide 20% Ointment 28.35 Gm Tube) 1 appl TOPICAL BID [facility]; Protocol Last Admin: 10/11/22 20:48 Dose: 1 appl <Fatuma Walker PA-C - Last Filed: 10/12/22 10:39> Home medications: Home Medications Medication Instructions Recorded Confirmed Last Taken Type acetaminophen 500 mg tablet 1,000 mg PO TID PRN Pain 01/02/22 09/29/22 Unknown History apixaban 2.5 mg tablet (Eliquis) 2.5 mg PO BID 01/02/22 09/29/22 Unknown History atorvastatin 10 mg tablet 10 mg PO BEDTIME 01/02/22 09/29/22 Unknown History divalproex 125 mg capsule,delayed 1,000 mg PO BID 01/02/22 09/29/22 Unknown History release sprinkle lactulose 10 gram/15 mL oral 20 g PO BID 01/02/22 09/29/22 Unknown History solution (Enulose) levothyroxine 100 mcg capsule 100 mcg PO DAILY 01/02/22 09/29/22 Unknown History mirtazapine 7.5 mg tablet 7.5 mg PO BEDTIME 01/02/22 09/29/22 Unknown History quetiapine 50 mg tablet 50 mg PO TID 01/02/22 09/29/22 Unknown History trazodone 100 mg tablet 200 mg PO BID 01/02/22 09/29/22 Unknown History ascorbic acid (vitamin C) 1,000 mg 1,000 mg PO BID 09/29/22 09/29/22 Unknown History tablet (Vitamin C) ascorbic acid (vitamin C) 250 mg 250 mg PO BID 09/29/22 09/29/22 Unknown History tablet (Vitamin C) bisacodyl 10 mg rectal suppository 10 mg HI DAILY PRN Constipation 09/29/22 09/29/22 Unknown History tramadol 50 mg tablet 50 mg PO BID PRN Pain 09/29/22 09/29/22 Unknown History <CAN Krishnamurthy Last Filed: 10/12/22 10:39> Physical Exam Vital Signs: Vital Signs: Last Vital Signs Temp 97.6 F 10/12/22 07:15 Pulse 82 10/12/22 07:15 Resp 18 10/12/22 07:15 BP 96/60 10/12/22 07:15 Pulse Ox 93 10/12/22 07:15 O2 Del Method Oxymask 10/12/22 07:15 O2 Flow Rate 4 10/12/22 07:15 FiO2 21 10/02/22 07:00 BMI result Body Mass Index 32.1 <CAN Krishnamurthy Last Filed: 10/12/22 10:39> Const: General: no acute distress <CAN Krishnamurthy Last Filed: 10/12/22 10:39> Resp: Other: on face mask, no increased work of breathing <Ftauma Walker PA-C Last Filed: 10/12/22 10:39> Cardio: Rate: regular rate <CAN Krishnamurthy Last Filed: 10/12/22 10:39> GI: Inspection: No distended, Yes obesity (protuberant abdomen), No scar and No visible herniation <CAN Krishnamurthy Last Filed: 10/12/22 10:39> Palpation (GI): Soft to palpation, nontender, no guarding and not rigid <CAN Bowers Last Filed: 10/12/22 10:39> Percussion: Yes normal to percussion <CAN Krishnamurthy Last Filed: 10/12/22 10:39> Skin: Other: warm and dry <CAN Krishnamurthy Last Filed: 10/12/22 10:39> Results Labs Result diagrams: 10/11/22 07:48 10/12/22 06:17 <CAN Krishnamurthy Last Filed: 10/12/22 10:39> Labs: Abnormal lab results 10/11/22 10/12/22 Range/Units 07:48 06:17 Band Neutrophils % 7 H (3-5) % Sodium 160 H* (135-145) mmol/L Potassium 3.1 L (3.3-5.1) mmol/L Chloride 131 H (96-108) mmol/L Carbon Dioxide 21 L (22-29) mmol/L Anion Gap 11 L (12-20) BUN 8 L (9-16) mg/dL BMP 10/12/22 06:17 Sodium 160 H* Potassium 3.1 L Chloride 131 H Carbon Dioxide 21 L BUN 8 L Creatinine 0.95 Calcium 9.5 Urine 09/29/22 Range/Units 14:20 Urine Color Yellow Urine Appearance Turbid Urine pH 6.5 (5.0-9.0) Ur Specific [place] 1.015 (1.005-1.025) Urine Protein 100 (2+) H (Neg-Trace) mg/dL Urine Glucose (UA) Negative (Negative) mg/dL All other labs normal. <Fatuma Walker PA-C - Last Filed: 10/12/22 10:39> Imaging Chest x-ray: report reviewed and image reviewed <Fatuma Walker PA-C - Last Filed: 10/12/22 10:39> Assessment and Plan (1) Schizoaffective disorder: Status: Acute <Fatuma Walker PA-C - Last Filed: 10/12/22 10:39> (2) Aspiration into respiratory tract: Status: Acute <Fatuma Walker PA-C - Last Filed: 10/12/22 10:39> She has been referred for PEG tube placement in view of poor oral intake with recent aspiration pneumonia She still is on O2 supplementation by face mask She had an x-ray days ago showing residual pneumonia Will allow time for improvement of her respiratory status prior to PEG tube placement No surgical scars noted on the abdomen Abdomen soft and benign Seen and examined independently - agree with ANDREA Walker Discussed with hospitalist service <Serafin Santiago MD - Last Filed: 10/12/22 09:59> 62 year old non communicative female with PMH of developmental disorder, schizoaffective disorder, pulmonary embolism on anticoagulation who was initially admitted with urosepsis and later developed aspiration pneumonitis. She has had decreased oral intake and developed hypoalbuminemia and TPN was initiated. Surgery consulted for PEG tube for feeding. No reports or scars to suggest prior abdominal surgery. She is a candidate for PEG tube however she has acute medical issues that need to improve prior to the procedure. Will therefore currently hold tube placement and plan for next week when PNA and supplemental O2 needs have improved. Hold eliquis prior. Will continue to follow. <Fatuma Walker PA-C - Last Filed: 10/12/22 10:39> Time Spent With Patient Time: Total time managing care of this patient today ____ minutes. <Fatuma Walker PA-C - Last Filed: 10/12/22 10:39> Procedures Date of Service Date of Service: 10/12/22 <Serafin Santiago MD - Last Filed: 10/12/22 09:59>
--- NOTE | 2022-10-12 09:52 | MHC.CLN ---
F/U PT REQUIRES TPN FOR NUTRITION SUPPORT 10/10/22 PT RECEIVED PPN 10/10 D10AA4.25 AT 45ML/HR PROVIDED 551KCALS, 46G PROTEIN SEE FULL CLINICAL NUTRITION ASSESSMENT DATED 10/10/22 TRIPLE LUMEN PLACED 10/11 PT RECEIVED TPN D15AA5% AT 70ML/HR PROVIDED 1193KCALS, 84G PROTEIN (1.1G/KG) ACCIDENTAL REMOVAL OF TRIPLE LUMEN DOCUMENTED REVIEWED LABS DISCUSSED WITH PHARMACY TODAY 10/12/22; RECOMMEND PPN D10AA4.25 AT 85ML/HR WITH 14ML OF 20% LIPIDS TO PROVIDE 1712 TOTAL KCALS (FROM FORMULA & LIPIDS; 23KCALS/KG), 87G PROTEIN (1.2G/KG) REPLETE LYTES NEEDED PT CONTINUES ON PUREED WITH NT LIQ-APPROPRIATE ENSURE TID TO PROMOTE WOUND HEALING CONTINUE TO MONITOR PO INTAKE CLOSELY EVAL BY SURGICAL TEAM FOR PEG PLACEMENT NOTED FOLLOWING WITH TEAM
--- NOTE | 2022-10-12 10:30 | PM.PNNEP ---
Subjective Subjective Date of Service: 10/12/22 Interval history: Patient nonverbal; All recent data reviewed; D/W Hospitalist Physical Exam Vital Signs: Vital Signs: Last Vital Signs Temp 97.6 F 10/12/22 07:15 Pulse 82 10/12/22 07:15 Resp 18 10/12/22 07:15 BP 96/60 10/12/22 07:15 Pulse Ox 93 10/12/22 07:15 O2 Del Method Oxymask 10/12/22 07:15 O2 Flow Rate 4 10/12/22 07:15 FiO2 21 10/02/22 07:00 BMI result Body Mass Index 32.1 Const: General: no acute distress Neck: Neck: Yes supple Resp: Auscultation: diminished lung sounds Cardio: Rate: regular rate GI: Palpation (GI): Soft to palpation Skin: General skin exam: no rashes or lesions noted Objective Data Labs 10/11/22 07:48 10/12/22 06:17 Labs: Laboratory Results - last 24 hr 10/11/22 10/11/22 10/12/22 07:48 07:48 06:17 Sodium 160 H* Potassium 3.1 L Chloride 131 H Carbon Dioxide 21 L Anion Gap 11 L BUN 8 L Creatinine 0.95 Estim Creat Clear Calc 73.4 Estimated GFR 59 Random Glucose 93 Calcium 9.5 Phosphorus 3.1 3.1 Magnesium 2.1 Triglycerides 187 143 Microbiology Microbiology Results: Microbiology 10/01/22 18:06 Blood - Venous Blood Culture - Final No growth after 5 days. 10/01/22 18:06 Blood - Venous Blood Culture - Final No growth after 5 days. 09/29/22 23:00 Heel, Left Gram Stain - Final 09/29/22 23:00 Heel, Left Routine Culture - Final Proteus mirabilis Methicillin Res Staph Aureus 09/29/22 14:08 Blood - Venous Blood Culture - Final No growth after 5 days. 09/29/22 14:08 Blood - Venous Blood Culture - Final Coag negative Staphylococcus Peptostreptococcus species 09/29/22 23:55 Sputum - Suctioned Gram Stain - Final 09/29/22 23:55 Sputum - Suctioned Sputum Culture - Final 09/29/22 Unknown Urine Catheterized - Randall Catheter Urine Culture - Final Procedures Date of Service Date of Service: 10/12/22 Assessment & Plan Assessment and plan (1) Hypernatremia: Status: Acute Assessment and Plan: Has significant water deficit Increase D5W to 200 /hour with 10 MEQ KCl Needs to closely monitor electrolytes Shall closely follow up Progress Note: Quality Stroke Does the patient have a stroke diagnosis?: No
[2022-10-12] MEDS: Folic Acid 1 MG TABLET PO (10:35)
[2022-10-12] MEDS: QUEtiapine Fumarate 50 MG TABLET PO ×3 (10:35→22:21)
[2022-10-12] MEDS: Divalproex Sodium Sprinkles 125 MG CAP.DR.SPR 1000 MG PO ×2 (10:35→22:20)
[2022-10-12] MEDS: Zinc Oxide 20% Ointment 28.35 GM TUBE 1 APPL TOPICAL ×2 (10:38→23:02)
[2022-10-12] MEDS: Apixaban 2.5 MG TABLET PO ×2 (10:38→22:21)
[2022-10-12 11:17] VITALS: BP 127/72; PULSE 104; RESP 18; TEMP 36.3; O2SAT 96
--- NOTE | 2022-10-12 12:46 | MHC.CM.PN ---
PER MD ROUNDS, PT TO HAVE PEG TUBE PLACED NEXT WEEK ONCE MEDICALLY STABLE. [facility] UPDATED. CM WILL CONTINUE TO FOLLOW FOR PLAN
--- NOTE | 2022-10-12 13:44 | MHC.SL.SWA ---
Speech Pathologist Impression: Risk of Aspiration Due to: History of Pneumonia Reduced Cognition Dysphasia Diet Status: Continue to recommend Puree Solids (NDD1), [place]-Thick Liquids, pills crushed in puree. Pt requires 1-1 feed. Strict aspiration precautions, see note in modifications as guide. Liquid Consistency and Strategies for Safe Swallow: Liquid Intake Recommendation: [place] Thick Liquid Intake Strategies: Small Sips No Straws Solid Food Consistency: Dietary Recommendations: Pureed (NDD1) Additional Modifications to Solid Foods: Patient's risk of aspiration at this time is secondary to patient verbalizing or inhaling with food or liquid in mouth. Discontinue feeding if patient is agitated and verbalizing/vocalizing frequently, particularly while eating. Do not attempt if patient is too lethargic or not engaged. Provide patient with frequent 02 breaks during meal. Discontinue if upper airway congestion is noted, coughing, drop in 02 sats without rebound. Oral Medication Intake: Crushed with Puree Please contact the pharmacy regarding appropriate crushable or liquid drug formulations that are available whenever modified delivery is recommended. Compensatory Strategies and Precautions to be Taken for Safe Swallow: Sitting Upright (90 deg) Small Bites and Sips Alternate Liquids/Solids Oral Check Supervision While Eating and Drinking for Safe Swallow: [place] (1:1) Foods to Avoid: Sticky or congealed purees, mixed consistencies. Swallowing Recommended Treatments: Compens. Strategy Educat. Recommendation for Speech: Inpatient Speech Therapy Comment: Patient seen this a.m., was awake, alert and verbalizing frequently, appeared mildly agitated. Patient has oxymask which needed frequent repositioning during the visit due to patient verbalizing and opening and closing mouth at rest. Oxymask was removed for brief periods to present tsps of [place] thick apple juice, which patient readily accepted. Again noted rapid oral phase and brisk swallow. Patient given several tsps of NT liquids, with break on Oxymask, then repeated. O2 Sats were noted to be in 90s, with variation from low to high 90s even at rest. Patient's risk of aspiration at this time is secondary to patient verbalizing or inhaling with food or liquid in mouth. Discontinue feeding if patient is agitated and verbalizing/vocalizing frequently, particularly while eating. Do not attempt if patient is too lethargic or not engaged. Provide patient with frequent 02 breaks during meal. Discontinue if upper airway congestion is noted, coughing, drop in 02 sats without rebound. Frequency/Duration: Date Range for Service Req: Timeline to reassess: Cabinet Maker Clinican/Clinical Fellow: No Supervisory Statement: I have reviewed and agree with the student/clinical fellow's documentation: N/A Speech Language Pathologist: Olimpia Ames M.A., CCC-CH[employer]EN AND [employer] CLEANER
--- NOTE | 2022-10-12 14:07 | P.PNIM_ITS ---
Subjective Subjective Date of Service: 10/12/22 Interval History: patient nonverbal making loud sounds, unable to provide meaningful history, no acute issues overnight noted to have sinus tachycardia on tele monitor, oxygenation 96% on 5 L, requiring frequent suctioning. Review of Systems Review of Systems: Yes Unobtainable due to mental status Physical Exam Vital Signs: Vital Signs: Last Vital Signs Temp 97.4 F 10/12/22 11:17 Pulse 104 H 10/12/22 11:17 Resp 18 10/12/22 11:17 BP 127/72 10/12/22 11:17 Pulse Ox 96 10/12/22 11:17 O2 Del Method Oxymask 10/12/22 11:17 O2 Flow Rate 5 10/12/22 11:17 FiO2 21 10/02/22 07:00 BMI result Body Mass Index 32.1 Const: Other: Gen:? Awake, making noises, no resp distress Neck: supple Lungs:? Bilateral coarse breath sound Heart:? Tachy regular rate and rhythm Abd: soft, non-tender, non-distended Ext:? Bilateral hand edema Skin: warm/well-perfused Neuro: alert, nonverbal, moving all extremities Psych: impaired insight Objective Data Active Medications Acetaminophen (Acetaminophen Supp 650 Mg Supp.Rect) 650 mg RI Q6H PRN PRN Reason: Fever Last Admin: 10/07/22 01:59 Dose: 650 mg Documented By: ANTDEVORAH Albuterol/Ipratropium (Albuterol/Iprat 2.5/0.5mg 3 Ml Ampul.Neb) 3 ml INHALE RQ4H WHILE AWAKE PRN PRN Reason: sob Last Admin: 10/07/22 23:04 Dose: 3 ml Documented By: FLAQUITA Apixaban (Apixaban 2.5 Mg Tablet) 2.5 mg PO BID [facility] Last Admin: 10/12/22 10:38 Dose: 2.5 mg Documented By: YAMILE Divalproex Sodium (Divalproex Sodium Sprinkles 125 Mg ) 1,000 mg PO BID [facility] Last Admin: 10/12/22 10:35 Dose: 1,000 mg Documented By: YAMILE Folic Acid (Folic Acid 1 Mg Tablet) 1 mg PO DAILY [facility] Last Admin: 10/12/22 10:35 Dose: 1 mg Documented By: YAMILE Piperacillin Sod/Tazobactam (Sod 3.375 gm/ Sodium Chloride) 50 mls @ 100 mls/hr IV Q6H [facility] Last Infusion: 10/12/22 11:35 Dose: 0 mls/hr Documented By: YAMILE Dextrose (D5w) 1,000 mls @ 125 mls/hr IVCONT .Q8H [facility] Last Infusion: 10/12/22 13:37 Dose: 0 mls/hr Documented By: AYMILE Magnesium Sulfate 10 meq/Potassium Phosphate 30 mmol/Potassium Acetate 40 meq/Amino Acids/Electrolytes/Dextrose 2,032.5 mls @ 85 mls/hr IVCONT DAILY@1800 [facility] Stop: 10/13/22 17:55 Fat Emulsion Intravenous (Intralipid) 168 mls @ 14 mls/hr IVCONT BID@0600,1800 [facility] Stop: 10/13/22 17:59 Lactulose (Lactulose 20 Gm/30 Ml Solution) 20 gm PO BID [facility] Last Admin: 10/12/22 10:35 Dose: Not Given Documented By: YAMILE Non-Admin Reason: liquid stool Levothyroxine Sodium (Levothyroxine Sodium 100 Mcg Tablet) 100 mcg PO DAILY@0600 [facility] Last Admin: 10/12/22 04:47 Dose: 100 mcg Documented By: EDILMA Mirtazapine (Mirtazapine 7.5 Mg Tablet) 7.5 mg PO BEDTIME [facility] Last Admin: 10/11/22 20:38 Dose: 7.5 mg Documented By: EDILMA Omeprazole (Omeprazole 20 Mg/10 Ml Susp.Recon) 40 mg PO DAILY@0630 [facility] Last Admin: 10/12/22 04:47 Dose: 40 mg Documented By: EDILMA Ondansetron HCl (Ondansetron Hcl 4 Mg/2 Ml Vial) 4 mg IVPUSH Q4H PRN PRN Reason: Nausea and Vomiting Last Admin: 10/05/22 14:18 Dose: 4 mg Documented By: MILTON Quetiapine Fumarate (Quetiapine Fumarate 50 Mg Tablet) 50 mg PO TID [facility] Last Admin: 10/12/22 10:35 Dose: 50 mg Documented By: YAMILE Zinc Oxide (Zinc Oxide 20% Ointment 28.35 Gm Tube) 1 appl TOPICAL BID [facility]; Protocol Last Admin: 10/12/22 10:38 Dose: 1 appl Documented By: YAMILE Labs 10/11/22 07:48 10/12/22 06:17 Labs: Laboratory Results - last 24 hr 10/12/22 06:17 Anion Gap 11 L Estim Creat Clear Calc 73.4 Estimated GFR 59 Random Glucose 93 Calcium 9.5 Phosphorus 3.1 Magnesium 2.1 Triglycerides 143 Assessment and Plan (1) Aspiration into respiratory tract: Status: Acute (2) Hypernatremia: Status: Acute Plan 62-year-old lady admitted with UTI/ sepsis required ICU initially for pressors. Successfully weaned off pressures in transfer to floor. Day of discharge vomited and now with likely aspiration pneumonitis 1. Aspiration pneumonitis/ recurrent aspiration -finish 10 day course of IV antibiotic, but developed hypoxia, repeat chest x- ray showed new infiltrate therefore placed back on IV Zosyn 10/10 , re-evaluated by speech therapy they recommended pureed and nectar thick liquids diet , decreased by mouth intake since patient noted to have cough and secretions 2. Hypernatremia/hypokalemia - recurrent hypokalemia and persistent hypernatremia, increase D5W to 200 mL/hour , replete IV potassium, being followed by Nephrology follow electrolytes and renal function. 3. Acute hypoxic respiratory failure, repeat chest x-ray showed new left base opacity question pneumonia since patient at high risk for aspiration on IV Zosyn started 10/10 continue oxygen support and gradually wean Frequent suctioning and close monitoring for aspiration with one-to-one feed , keep head of bed elevated. 4. Pulmonary embolism (by history) on Eliquis , monitor closely for anemia . will hold Eliquis on Sunday for possible PEG tube placement on Sunday. 5. Schizoaffective disorder -continue home medications Depakote, Seroquel and mirtazepine 7.5 at bedtime 6. Acute on chronic macrocytic anemia status post 2 units of packed RBC hematocrit stable, normal B12, low folate Repeat hematocrit stable , folic acid 1 mg daily 7. Dysphagia seen by speech therapy they recommended pureed and nectar thank liquids with aspiration precautions and oxygen via nasal cannula during feeds. Patient with decreased by mouth intake hypoalbuminemia Therefore placed on IV PPN, TPN discontinue since patient lost her triple- lumen catheter, spoke with patient's guardian Edith Reyes phone [phone] discussed alternate feedings she chose PEG tube placement due to recurrent bout of pneumonia, surgical consult obtained case discussed with Dr. Santiago, plan is for PEG tube placement on Sunday will hold Eliquis 48 hours prior to surgery, meanwhile will treat lung infection and is stabilized pulmonary status . 8. UTI(multpile organisms) -completed course of antibiotics. 9. Hypothyroidism continue levothyroxine. DVT prophylaxis on Eliquis Full code Requires ongoing hospitalization for dysphagia and electrolyte abnormalities receiving IV ppn,and hypoxia Time Spent With Patient Time: Total time managing care of this patient today ____ minutes. Quality Stroke Does the patient have a stroke diagnosis?: No VTE Prior VTE?: No VTE Risk Level:: Medical - moderate - high VTE Device Contraindication: N/A - Device Ordered VTE Drug Contraindication: N/A - Med Ordered
[2022-10-12 15:31] VITALS: BP 96/50; PULSE 82; RESP 17; TEMP 36.3; O2SAT 99
[2022-10-12] MEDS: Potassium Chloride/H20 10 MEQ/100 ML PIGGYBACK 100 MEQ IV ×2 (15:41→17:52)
[2022-10-12] MEDS: KCl 20 mEq in 5 % Dextrose 20 MEQ/1,000 ML IV.SOLN 200 MEQ IVCONT (17:36)
[2022-10-12 17:59] LABS: Osmolality Urine 181 mosm/kg (373-1093)
[2022-10-12 19:16] VITALS: BP 85/51; PULSE 86; RESP 17; TEMP 35.8; O2SAT 97
[2022-10-12] MEDS: Fat Emulsions 20% 250 ML 14 ML IVCONT (20:20)
[2022-10-12] MEDS: Mirtazapine 7.5 MG TABLET PO (22:21)
[2022-10-13] VITALS: BP 130/91; PULSE 92; RESP 20; TEMP 37.3; O2SAT 98
[2022-10-13] MEDS: Piperacillin Sodium/Tazobactam 3.375 GM in 0.9 % Sodium Chloride 50 ML IV ×4 (02:17→21:43)
[2022-10-13 03:32] VITALS: BP 132/58; PULSE 94; RESP 20; TEMP 36.1; O2SAT 97
[2022-10-13] MEDS: KCl 20 mEq in 5 % Dextrose 20 MEQ/1,000 ML IV.SOLN 200 MEQ IVCONT (05:36)
[2022-10-13] MEDS: Levothyroxine Sodium 100 MCG TABLET PO (05:39)
[2022-10-13 05:49] LABS: Anion Gap 12 (12-20); Blood Urea Nitrogen 8 mg/dL (9-16); Calcium 9.3 mg/dL (8.4-10.2); Carbon Dioxide 20 mmol/L (22-29); Chloride 127 mmol/L (96-108); Creatinine Clr Calc Pharmacy 65.2; Estimated Glomerular Filt Rate 52; Glucose Random 241 mg/dL (60-115); Potassium 3.9 mmol/L (3.3-5.1); Sodium 155 mmol/L (135-145)
[2022-10-13 06:49] LABS: Magnesium 2.1 mg/dL (1.6-2.6); Phosphorus 2.7 mg/dL (2.7-4.5)
[2022-10-13 07:18] VITALS: BP 118/60; PULSE 92; RESP 18; TEMP 36.4; O2SAT 99
--- NOTE | 2022-10-13 08:27 | MHC.CM.PN ---
EMR REVIEWED, PER HOSPITALIST NOTE PLAN FOR PEG TUBE PLACEMENT ON SUNDAY AFTER ELIQUIS IS HELD FOR 48HRS, SNF UPDATED AND CM WILL CONT TO FOLLOW D/C NEEDS.
--- NOTE | 2022-10-13 09:12 | PM.PNNEP ---
Subjective Subjective Date of Service: 10/13/22 Interval history: Events noted. Chart reviewed. Unable to give ROS. Physical Exam Vital Signs: Vital Signs: Last Vital Signs Temp 97.5 F 10/13/22 07:18 Pulse 92 10/13/22 07:18 Resp 18 10/13/22 07:18 BP 118/60 10/13/22 07:18 Pulse Ox 99 10/13/22 07:18 O2 Del Method Oxymask 10/13/22 07:18 O2 Flow Rate 5 10/13/22 07:18 FiO2 21 10/02/22 07:00 BMI result Body Mass Index 32.1 Neck: Neck: Yes supple Resp: Auscultation: diminished lung sounds Cardio: Rate: regular rate GI: Palpation (GI): Soft to palpation Skin: General skin exam: no rashes or lesions noted Neuro: General: moves all extremities Objective Data Labs 10/11/22 07:48 10/13/22 05:09 Labs: Laboratory Results - last 24 hr 10/12/22 10/12/22 10/13/22 16:36 16:36 05:09 Sodium 155 H Potassium 3.9 D Chloride 127 H Carbon Dioxide 20 L Anion Gap 12 BUN 8 L Creatinine 1.07 Estim Creat Clear Calc 65.2 Estimated GFR 52 Random Glucose 241 H Calcium 9.3 Phosphorus 2.7 Magnesium 2.1 Urine Osmolality 181 L Ur Random Sodium 34.0 Microbiology Microbiology Results: Microbiology 10/01/22 18:06 Blood - Venous Blood Culture - Final No growth after 5 days. 10/01/22 18:06 Blood - Venous Blood Culture - Final No growth after 5 days. 09/29/22 23:00 Heel, Left Gram Stain - Final 09/29/22 23:00 Heel, Left Routine Culture - Final Proteus mirabilis Methicillin Res Staph Aureus 09/29/22 14:08 Blood - Venous Blood Culture - Final No growth after 5 days. 09/29/22 14:08 Blood - Venous Blood Culture - Final Coag negative Staphylococcus Peptostreptococcus species 09/29/22 23:55 Sputum - Suctioned Gram Stain - Final 09/29/22 23:55 Sputum - Suctioned Sputum Culture - Final 09/29/22 Unknown Urine Catheterized - Randall Catheter Urine Culture - Final Procedures Date of Service Date of Service: 10/13/22 Assessment & Plan Assessment and plan (1) Hypernatremia: Status: Acute Assessment and Plan: Hypernatremia due to free water deficit Serum sodium is marginally better Decrease D5W to 150 /hour with 10 MEQ KCl Needs to closely monitor electrolytes/K Anemia Concur with other medical management Shall closely follow up Time Spent With Patient Time: Total time managing care of this patient today ____ minutes. Progress Note: Quality Stroke Does the patient have a stroke diagnosis?: No
--- NOTE | 2022-10-13 10:36 | HO.MIDLINE_ITS ---
Midline Insertion MIDLINE INSERTION Diagnosis: [dysphagia] Indication: IV fluids/PPN needed Pertinent Labs: reviewed Technique: Using sterile technique including cap and mask, glove and drape, the left arm was prepped and draped in the usual sterile fashion of full barrier technique with G. Using ultrasound guidance, left cephalic vein access was obtained. [A 20G X 8CM non-PASV Midline was positioned. The procedure was performed in [S272]. Ultrasound was used to document vein patency and for needle entry. A formal ultrasound picture was recorded. Vascular Trimmer Buffing Wheel has released the line for use and it is currently dressed with a StatLock, Tegaderm, and CHG disc. Verification has been performed for blood return and line patency. Arm Circumference: 33 CM Equipment: BARD PowerGlide ST Midline Catheter Type: 20g x 8cm non-PASV ST Midline Lot #: [id number]
--- NOTE | 2022-10-13 10:40 | MHC.CLN ---
F/U REVIEWED LABS DISCUSSED WITH PHARMACY PT RECEIVING PPN D10AA4.25 AT 85ML/HR WITH 14ML OF 20% LIPIDS PROVIDES 1712 TOTAL KCALS (FROM FORMULA & LIPIDS; 23KCALS/KG), 87G PROTEIN (1.2G/KG) REPLETE LYTES NEEDED PT CONTINUES ON PUREED WITH NT LIQ-APPROPRIATE 25% INTAKE ENSURE TID TO PROMOTE WOUND HEALING CONTINUE TO MONITOR PO INTAKE CLOSELY PEG PLACEMENT PLANNED FOR SUNDAY FOLLOWING WITH TEAM
[2022-10-13 11:23] VITALS: BP 124/65; PULSE 89; RESP 18; TEMP 36.3; O2SAT 94
--- NOTE | 2022-10-13 11:53 | MHC.SL.SWA ---
Speech Pathologist Impression: Risk of aspiration, oropharyngeal dysphagia Risk of Aspiration Due to: History of Pneumonia Reduced Cognition Dysphasia Diet Status: Downgrade Liquid Consistency and Strategies for Safe Swallow: Liquid Intake Recommendation: NPO Solid Food Consistency: Dietary Recommendations: NPO Additional Modifications to Solid Foods: RN reporting pt tolerating pills, but is presented with suction (appearing as a straw, turned off) to elicit swallow from pt. MANAGER DELIVERY advising to monitor very closely, if pt presents with any overt s/s of aspiration given pills, recommend NPO strict. Pt reportedly with very poor PO intake. Pt demonstrating overt s/s of aspiration when seen by MANAGER DELIVERY his morning. Per chart review, pt receiving PPN, plans are for PEG placement on Sunday. Continue with daily oral care, elevate head of bed 30 degrees to decrease risk of microaspiration. Oral Medication Intake: Crushed with Puree Please contact the pharmacy regarding appropriate crushable or liquid drug formulations that are available whenever modified delivery is recommended. Supervision While Eating and Drinking for Safe Swallow: PO with MANAGER DELIVERY Swallowing Recommended Treatments: Compens. Strategy Educat. Recommendation for Speech: Inpatient Speech Therapy Clothes Designer Clinican/Clinical Fellow: No Supervisory Statement: I have reviewed and agree with the student/clinical fellow's documentation: N/A Speech Language Pathologist: Brenda Velarde M.A., CCC-MANAGER DELIVERY
[2022-10-13] MEDS: Divalproex Sodium Sprinkles 125 MG CAP.DR.SPR 1000 MG PO ×2 (11:55→21:41)
[2022-10-13] MEDS: Folic Acid 1 MG TABLET PO (11:55)
[2022-10-13] MEDS: QUEtiapine Fumarate 50 MG TABLET PO ×3 (11:55→21:42)
[2022-10-13] MEDS: Zinc Oxide 20% Ointment 28.35 GM TUBE 1 APPL TOPICAL ×2 (11:56→22:14)
--- NOTE | 2022-10-13 11:56 | MHC.SL.SWA ---
Addendum entered and electronically signed by Brenda Velarde MA, CCC-TURF MANAGER 10/13/22 12:13: Pt seen again for further trials of applesauce. Pt tolerated 1/2 teaspoon bites of applesauce, again with a rapid oral rate, brisk swallow, and no overt s/s of aspiration. Good oral clearance. TURF MANAGER observed pt taking pills with RN, she tolerated crushed pills in puree. Pt displayed s/s of aspiration with intake of honey thick consistency previously. TURF MANAGER discussed with MD- Recommendation is for NDD1 solids/PUDDING thick liquids, crushed pills in puree. Pt requires 1:1 assistance feeding: present small bites, check oral cavity for clearance and observe for swallow before presenting more PO, upright 90 degree position during PO intake. Recommendations written on board. MD to update diet order. Original Note: Speech Pathologist Impression: Risk of aspiration, oropharyngeal dysphagia Risk of Aspiration Due to: History of Pneumonia Reduced Cognition Dysphasia Diet Status: Hold PO Liquid Consistency and Strategies for Safe Swallow: Liquid Intake Recommendation: NPO Solid Food Consistency: Dietary Recommendations: NPO Additional Modifications to Solid Foods: RN reporting pt tolerating pills, but is presented with suction (appearing as a straw, turned off) to elicit swallow from pt. TURF MANAGER advising to monitor very closely, if pt presents with any overt s/s of aspiration given pills, recommend NPO strict. Pt reportedly with very poor PO intake. Pt demonstrating overt s/s of aspiration when seen by TURF MANAGER his morning. Per chart review, pt received TPN, plans are for PEG placement on Sunday. Continue with daily oral care, elevate head of bed 30 degrees to decrease risk of microaspiration. Oral Medication Intake: Crushed with Puree Please contact the pharmacy regarding appropriate crushable or liquid drug formulations that are available whenever modified delivery is recommended. Supervision While Eating and Drinking for Safe Swallow: PO with TURF MANAGER Swallowing Recommended Treatments: Compens. Strategy Educat. Recommendation for Speech: Inpatient Speech Therapy Planning Lead Clinican/Clinical Fellow: No Supervisory Statement: I have reviewed and agree with the student/clinical fellow's documentation: N/A Speech Language Pathologist: Brenda Velarde M.A., CCC-TURF MANAGER
--- NOTE | 2022-10-13 12:25 | P.PNIM_ITS ---
Subjective Subjective Date of Service: 10/13/22 Interval History: No change in clinical condition patient nonverbal at baseline oxygenation stable on 5 L, underwent midline placement this morning, no events overnight being followed by speech therapy. Review of Systems Review of Systems: Yes all other systems are reviewed and are negative Physical Exam Vital Signs: Vital Signs: Last Vital Signs Temp 97.3 F 10/13/22 11:23 Pulse 89 10/13/22 11:23 Resp 18 10/13/22 11:23 BP 124/65 10/13/22 11:23 Pulse Ox 94 10/13/22 11:23 O2 Del Method Oxymask 10/13/22 11:23 O2 Flow Rate 4 10/13/22 11:23 FiO2 21 10/02/22 07:00 BMI result Body Mass Index 32.1 Const: Other: Gen:? Awake, makin g noises, no resp distress Neck: sup ple Lungs:? Bilate ral coarse breath sound Heart:? Tach y regular rate and rhythm Abd: soft, non-tender, non-d istended Ext:? Grant ateral hand edema/ LE edema Skin: war m/well-perfused Ne uro: alert, nonver bal, moving all ex tremities Psych: i mpaired insight Objective Data Active Medications Acetaminophen (Acetaminophen Supp 650 Mg Supp.Rect) 650 mg ME Q6H PRN PRN Reason: Fever Last Admin: 10/07/22 01:59 Dose: 650 mg Documented By: SUJEY Albuterol/Ipratropium (Albuterol/Iprat 2.5/0.5mg 3 Ml Ampul.Neb) 3 ml INHALE RQ4H WHILE AWAKE PRN PRN Reason: sob Last Admin: 10/07/22 23:04 Dose: 3 ml Documented By: FLAQUITA Apixaban (Apixaban 2.5 Mg Tablet) 2.5 mg PO BID [facility] Last Admin: 10/13/22 11:56 Dose: Not Given Documented By: YAMILE Non-Admin Reason: per orders Divalproex Sodium (Divalproex Sodium Sprinkles 125 Mg ) 1,000 mg PO BID [facility] Last Admin: 10/13/22 11:55 Dose: 1,000 mg Documented By: YAMILE Famotidine (Famotidine/Pf 20 Mg/2 Ml Vial) 20 mg IVPUSH DAILY [facility] Folic Acid (Folic Acid 1 Mg Tablet) 1 mg PO DAILY [facility] Last Admin: 10/13/22 11:55 Dose: 1 mg Documented By: YAMILE Piperacillin Sod/Tazobactam (Sod 3.375 gm/ Sodium Chloride) 50 mls @ 100 mls/hr IV Q6H [facility] Last Admin: 10/13/22 12:12 Dose: 100 mls/hr Documented By: YAMILE Magnesium Sulfate 10 meq/Potassium Phosphate 30 mmol/Potassium Acetate 40 meq/Amino Acids/Electrolytes/Dextrose 2,032.5 mls @ 85 mls/hr IVCONT DAILY@1800 [facility] Stop: 10/13/22 17:55 Last Admin: 10/12/22 20:20 Dose: 85 mls/hr Documented By: SARMAD Fat Emulsion Intravenous (Intralipid) 168 mls @ 14 mls/hr IVCONT BID@0600,1800 [facility] Stop: 10/13/22 17:59 Last Admin: 10/13/22 06:12 Dose: Not Given Documented By: SARMAD Non-Admin Reason: IV Running Potassium Chloride/Dextrose (Kcl 20 Meq In 5 % Dextrose) 20 meq in 1,000 mls @ 150 mls/hr IVCONT .Q6H40M [facility] Last Admin: 10/13/22 05:36 Dose: 200 mls/hr Documented By: SARMAD Magnesium Sulfate 10 meq/Potassium Phosphate 30 mmol/Potassium Acetate 40 meq/Multivitamins 10 ml/ Trace Metals 1 ml/ Amino Acids/Electrolytes/Dextrose 2,040 mls @ 85 mls/hr IVCONT DAILY@1800 [facility] Stop: 10/14/22 17:59 Fat Emulsion Intravenous (Intralipid) 168 mls @ 14 mls/hr IVCONT BID@0600,1800 [facility] Stop: 10/14/22 17:59 Lactulose (Lactulose 20 Gm/30 Ml Solution) 20 gm PO BID [facility] Last Admin: 10/13/22 11:56 Dose: Not Given Documented By: YAMILE Non-Admin Reason: liguid stool Levothyroxine Sodium (Levothyroxine Sodium 100 Mcg/5 Ml Vial) 50 mcg IVPUSH DAILY@0600 [facility] Mirtazapine (Mirtazapine 7.5 Mg Tablet) 7.5 mg PO BEDTIME [facility] Last Admin: 10/12/22 22:21 Dose: 7.5 mg Documented By: SARMAD Ondansetron HCl (Ondansetron Hcl 4 Mg/2 Ml Vial) 4 mg IVPUSH Q4H PRN PRN Reason: Nausea and Vomiting Last Admin: 10/05/22 14:18 Dose: 4 mg Documented By: MILTON Quetiapine Fumarate (Quetiapine Fumarate 50 Mg Tablet) 50 mg PO TID [facility] Last Admin: 10/13/22 11:55 Dose: 50 mg Documented By: YAMILE Zinc Oxide (Zinc Oxide 20% Ointment 28.35 Gm Tube) 1 appl TOPICAL BID [facility]; Protocol Last Admin: 10/13/22 11:56 Dose: 1 appl Documented By: YAMILE Labs 10/11/22 07:48 10/13/22 05:09 Labs: Laboratory Results - last 24 hr 10/12/22 10/12/22 10/13/22 16:36 16:36 05:09 Anion Gap 12 Estim Creat Clear Calc 65.2 Estimated GFR 52 Random Glucose 241 H Calcium 9.3 Phosphorus 2.7 Magnesium 2.1 Urine Osmolality 181 L Ur Random Sodium 34.0 Assessment and Plan (1) Aspiration into respiratory tract: Status: Acute (2) Hypernatremia: Status: Acute Plan 62-year-old lady admitted with UTI/ sepsis required ICU initially for pressors. Successfully weaned off pressures in transfer to floor. Day of discharge vomited and now with likely aspiration pneumonitis 1. Aspiration pneumonitis/ recurrent aspiration -finish 10 day course of IV antibiotic, but developed hypoxia, repeat chest x- ray 10/10 showed new infiltrate therefore placed back on IV Zosyn 10/10 , re- evaluated by speech therapy they recommended pureed and pudding thick liquids diet , decreased by mouth intake since patient noted to have cough and secretions, will continue PPN 2. Hypernatremia/hypokalemia - recurrent hypokalemia and persistent hypernatremia, on D5W 200 mL/hour with 20 meq potassium, sodium trended down to 155, potassium improved to 3.9, will decrease D5W to 150 mL/hour being followed by Nephrology follow electrolytes and renal function. 3. Acute hypoxic respiratory failure, repeat chest x-ray showed new left base opacity question pneumonia since patient at high risk for aspiration on IV Zosyn started 10/10 continue oxygen support and gradually wean Frequent suctioning and close monitoring for aspiration with one-to-one feed , keep head of bed elevated. 4. Pulmonary embolism (by history) on Eliquis , monitor closely for anemia . wi ll hold Eliquis today for possible PEG tube placement on Sunday. 5. Schizoaffective disorder -continue home medications Depakote, Seroquel and mirtazepine 7.5 at bedtime 6. Acute on chronic macrocytic anemia status post 2 units of packed RBC hematocrit stable, normal B12, low folate Repeat hematocrit stable , folic acid 1 mg daily 7. Dysphagia seen by speech therapy they recommended pureed and pudding thick liquids with aspiration precautions and oxygen via nasal cannula during feeds. Patient with decreased by mouth intake hypoalbuminemia Therefore placed on IV PPN, TPN discontinue since patient lost her triple- lumen catheter, spoke with patient's guardian Edith Reyes phone [phone] discussed alternate feedings she chose PEG tube placement due to recurrent bout of pneumonia, surgical consult obtained case discussed with Dr. Santiago, plan is for PEG tube placement on Sunday will hold Eliquis 48 hours prior to surgery, meanwhile will treat lung infection and stabilize pulmonary status . 8. UTI(multpile organisms) -completed course of antibiotics. 9. Hypothyroidism continue levothyroxine change to iv for sometimes difficult administration. DVT prophylaxis on Eliquis Full code Requires ongoing hospitalization for dysphagia and electrolyte abnormalities receiving IV ppn,and hypoxia Time Spent With Patient Time: Total time managing care of this patient today ____ minutes. Quality Stroke Does the patient have a stroke diagnosis?: No VTE Prior VTE?: No VTE Risk Level:: Medical - moderate - high VTE Device Contraindication: N/A - Device Ordered VTE Drug Contraindication: N/A - Med Ordered
[2022-10-13] MEDS: KCl 20 mEq in 5 % Dextrose 20 MEQ/1,000 ML IV.SOLN 150 MEQ IVCONT ×2 (13:56→21:34)
[2022-10-13] MEDS: Enoxaparin Sodium 40 MG/0.4 ML SYRINGE SUBCUT (14:03)
--- NOTE | 2022-10-13 14:49 | PM.EVENT ---
Event Note Date of Service: 10/13/22 Event Note: No particular changes with patient's condition Midline inserted I had a long discussion with Edith Angeles, her legal guardian, about PEG placement I explained to her the technique of the procedure. I reviewed the risks including but not limited to bleeding, infections, injury to the bowel, tube dislodgement, tube leak, loss of airway, and risks of anesthesia, including She says the family is still want her to go through the procedure They understand that she is very frail and presents with high perioperative risks to her overall condition We are planning to do the G-tube early next week if the patient is medically stable Time Spent With Patient Time: Total time managing care of this patient today ____ minutes.
[2022-10-13] MEDS: Fat Emulsions 20% 250 ML 14 ML IVCONT ×2 (15:39→18:29)
[2022-10-13 15:46] VITALS: BP 145/60; PULSE 68; RESP 19; TEMP 37.1; O2SAT 92
[2022-10-13] MEDS: Heparin Sodium,Porcine Flush 50 UNITS, 0.9 % Sodium Chloride Flush 5 ML IVFLUSH ×2 (16:42→23:16)
[2022-10-13 19:43] VITALS: BP 102/59; PULSE 98; RESP 20; TEMP 37.2; O2SAT 97
[2022-10-13] MEDS: Mirtazapine 7.5 MG TABLET PO (21:42)
[2022-10-14] VITALS: BP 116/65; PULSE 92; RESP 18; TEMP 36.6; O2SAT 98
[2022-10-14 03:26] VITALS: BP 109/67; PULSE 94; RESP 18; TEMP 36.6; O2SAT 96
[2022-10-14] MEDS: Piperacillin Sodium/Tazobactam 3.375 GM in 0.9 % Sodium Chloride 50 ML IV ×4 (03:59→21:40)
[2022-10-14] MEDS: Fat Emulsions 20% 250 ML 14 ML IVCONT ×2 (05:06→18:30)
[2022-10-14] MEDS: KCl 20 mEq in 5 % Dextrose 20 MEQ/1,000 ML IV.SOLN 150 MEQ IVCONT (05:06)
[2022-10-14] MEDS: Levothyroxine Sodium 100 MCG/5 ML VIAL 50 MCG IVPUSH (05:10)
[2022-10-14 07:41] VITALS: BP 126/70; PULSE 96; RESP 20; TEMP 36.5; O2SAT 96
[2022-10-14 08:10] LABS: Albumin Level 2.4 g/dL (3.5-5.0); Anion Gap 9 (12-20); Blood Urea Nitrogen 15 mg/dL (9-16); Calcium 9.3 mg/dL (8.4-10.2); Carbon Dioxide 23 mmol/L (22-29); Chloride 121 mmol/L (96-108); Creatinine Clr Calc Pharmacy 53.6; Estimated Glomerular Filt Rate 41; Glucose Random 576 mg/dL (60-115); Phosphorus 2.8 mg/dL (2.7-4.5); Potassium 4.8 mmol/L (3.3-5.1); Sodium 148 mmol/L (135-145)
[2022-10-14] MEDS: Famotidine/PF 20 MG/2 ML VIAL IVPUSH (09:24)
[2022-10-14] MEDS: Divalproex Sodium Sprinkles 125 MG CAP.DR.SPR 1000 MG PO ×2 (09:30→21:42)
[2022-10-14] MEDS: QUEtiapine Fumarate 50 MG TABLET PO ×3 (09:31→21:42)
[2022-10-14] MEDS: Folic Acid 1 MG TABLET PO (09:31)
[2022-10-14 09:42] LABS: Glucose, Whole Blood 508 mg/dL (60-115)
[2022-10-14] MEDS: Insulin Lispro 100 UNIT/ML 3 ML VIAL 10 UNIT SUBCUT (10:37)
[2022-10-14] MEDS: Zinc Oxide 20% Ointment 28.35 GM TUBE 1 APPL TOPICAL ×2 (10:38→21:43)
[2022-10-14 10:55] VITALS: BP 127/65; PULSE 101; RESP 18; TEMP 36.7; O2SAT 96
[2022-10-14] MEDS: hydroCHLOROthiazide 25 MG TABLET PO (11:42)
[2022-10-14 12:02] LABS: Glucose, Whole Blood 559 mg/dL (60-115)
[2022-10-14 12:02] LABS: Glucose, Whole Blood 530 mg/dL (60-115)
[2022-10-14 12:17] LABS: Glucose, Whole Blood 508 mg/dL (60-115)
--- NOTE | 2022-10-14 12:35 | HO.PM.IMPN ---
Subjective Subjective Date of Service: 10/14/22 Interval History: Nonverbal, no change in clinical status noted to have elevated blood sugars greater than 500 no overnight issues oxygen requirement is decreasing currently on 4 L of oxygen with finger oximetry 94%. Review of Systems Review of Systems: Yes Unobtainable due to mental status Physical Exam Vital Signs: Vital Signs: Last Vital Signs Temp 98.1 F 10/14/22 10:55 Pulse 101 H 10/14/22 10:55 Resp 18 10/14/22 10:55 BP 127/65 10/14/22 10:55 Pulse Ox 96 10/14/22 10:55 O2 Del Method Oxymask 10/14/22 10:55 O2 Flow Rate 4 10/14/22 10:55 FiO2 21 10/02/22 07:00 BMI result Body Mass Index 32.1 Const: Other: Gen:? Awake, making noises, no resp distress Neck: supple Lungs:? Bilateral coarse breath sound Heart:? Tachy regular rate and rhythm Abd: soft, non-tender, non-distended Ext:? Bilateral upper and lower extremity edema Skin: warm/well-perfused Neuro: alert, nonverbal, moving all extremities Psych: impaired insight Objective Data Active Medications Acetaminophen (Acetaminophen Supp 650 Mg Supp.Rect) 650 mg UT Q6H PRN PRN Reason: Fever Last Admin: 10/07/22 01:59 Dose: 650 mg Documented By: ANTDEVORAH Albuterol/Ipratropium (Albuterol/Iprat 2.5/0.5mg 3 Ml Ampul.Neb) 3 ml INHALE RQ4H WHILE AWAKE PRN PRN Reason: sob Last Admin: 10/07/22 23:04 Dose: 3 ml Documented By: FLAQUITA Heparin Sodium (Porcine) 50 (units/ Sodium Chloride 5 ml) 0 units IVFLUSH QSHIFT FORMERLY [facility], [facility] Last Admin: 10/14/22 09:22 Dose: Not Given Documented By: NANCY Non-Admin Reason: IV Running Divalproex Sodium (Divalproex Sodium Sprinkles 125 Mg ) 1,000 mg PO BID [facility], [facility] Last Admin: 10/14/22 09:30 Dose: 1,000 mg Documented By: NANCY Enoxaparin Sodium (Enoxaparin Sodium 40 Mg/0.4 Ml Syringe) 40 mg SUBCUT Q24H [facility], [facility] Last Admin: 10/13/22 14:03 Dose: 40 mg Documented By: YAMILE Famotidine (Famotidine/Pf 20 Mg/2 Ml Vial) 20 mg IVPUSH DAILY [facility], [facility]1983 Last Admin: 10/14/22 09:24 Dose: 20 mg Documented By: NANCY Folic Acid (Folic Acid 1 Mg Tablet) 1 mg PO DAILY [facility], [facility] Last Admin: 10/14/22 09:31 Dose: 1 mg Documented By: NANCY Piperacillin Sod/Tazobactam (Sod 3.375 gm/ Sodium Chloride) 50 mls @ 100 mls/hr IV Q6H [facility], [facility] Last Infusion: 10/14/22 11:40 Dose: 0 mls/hr Documented By: NANCY Magnesium Sulfate 10 meq/Potassium Phosphate 30 mmol/Potassium Acetate 40 meq/Multivitamins 10 ml/ Trace Metals 1 ml/ Amino Acids/Electrolytes/Dextrose 2,040 mls @ 85 mls/hr IVCONT DAILY@1800 [facility], [facility] Stop: 10/14/22 17:59 Last Admin: 10/13/22 18:29 Dose: 85 mls/hr Documented By: YAMILE Fat Emulsion Intravenous (Intralipid) 168 mls @ 14 mls/hr IVCONT BID@0600,1800 [facility], [facility] Stop: 10/14/22 17:59 Last Admin: 10/14/22 05:06 Dose: 14 mls/hr Documented By: STEFANIE Magnesium Sulfate 10 meq/Potassium Phosphate 30 mmol/Potassium Acetate 30 meq/Amino Acids/Electrolytes/Dextrose 2,027.5 mls @ 85 mls/hr IVCONT DAILY@1800 [facility], [facility] Stop: 10/15/22 17:52 Fat Emulsion Intravenous (Intralipid) 168 mls @ 14 mls/hr IVCONT BID@0600,1800 [facility], [facility] Stop: 10/15/22 17:59 Levothyroxine Sodium (Levothyroxine Sodium 100 Mcg/5 Ml Vial) 50 mcg IVPUSH DAILY@0600 [facility], [facility] Last Admin: 10/14/22 05:10 Dose: 50 mcg Documented By: STEFANIE Mirtazapine (Mirtazapine 7.5 Mg Tablet) 7.5 mg PO BEDTIME [facility]LY [facility], [facility] Last Admin: 10/13/22 21:42 Dose: 7.5 mg Documented By: STEFANIE Ondansetron HCl (Ondansetron Hcl 4 Mg/2 Ml Vial) 4 mg IVPUSH Q4H PRN PRN Reason: Nausea and Vomiting Last Admin: 10/05/22 14:18 Dose: 4 mg Documented By: MILTON Quetiapine Fumarate (Quetiapine Fumarate 50 Mg Tablet) 50 mg PO TID [facility], [facility] Last Admin: 10/14/22 09:31 Dose: 50 mg Documented By: NANCY Zinc Oxide (Zinc Oxide 20% Ointment 28.35 Gm Tube) 1 appl TOPICAL BID [facility]; Protocol Last Admin: 10/14/22 10:38 Dose: 1 appl Documented By: NANCY Labs 10/11/22 07:48 10/14/22 06:23 Labs: Laboratory Results - last 24 hr 10/14/22 10/14/22 10/14/22 06:23 09:38 10:57 Anion Gap 9 L Estim Creat Clear Calc 53.6 Estimated GFR 41 POC Glucose 508 H* 530 H* Random Glucose 576 H* Calcium 9.3 Phosphorus 2.8 Magnesium 2.0 Albumin 2.4 L Triglycerides 200 10/14/22 10/14/22 11:05 12:14 Anion Gap Estim Creat Clear Calc Estimated GFR POC Glucose 559 H* 508 H* Random Glucose Calcium Phosphorus Magnesium Albumin Triglycerides Assessment and Plan (1) Aspiration into respiratory tract: Status: Acute (2) Hypernatremia: Status: Acute Plan 62-year-old lady admitted with UTI/ sepsis required ICU initially for pressors. Successfully weaned off pressures in transfer to floor. Day of discharge vomited and now with likely aspiration pneumonitis 1. Aspiration pneumonitis/ recurrent aspiration -finish 10 day course of IV antibiotic, but developed hypoxia, repeat chest x-ray 10/10 showed new infiltrate therefore placed back on IV Zosyn 10/10 , re-evaluated by speech therapy they recommended pureed and pudding thick liquids diet , decreased by mouth intake since patient noted to have cough and secretions, will continue PPN 2. Hypernatremia/hypokalemia Hypokalemia resolved, sodium improved to 148 will DC IV D5W, follow electrolyte and renal function 3. Acute hypoxic respiratory failure, repeat chest x-ray showed new left base opacity question pneumonia since patient at high risk for aspiration on IV Zosyn started 10/10 , decreased oxygen requirement continue wean Frequent suctioning and close monitoring for aspiration with one-to-one feed , keep head of bed elevated. 4. Pulmonary embolism (by history) on Eliquis , monitor closely for anemia . will hold Eliquis today for possible PEG tube placement on Sunday. 5. Schizoaffective disorder -continue home medications Depakote, Seroquel and mirtazepine 7.5 at bedtime 6. Acute on chronic macrocytic anemia status post 2 units of packed RBC hematocrit stable, normal B12, low folate Repeat hematocrit stable , folic acid 1 mg daily 7. Dysphagia seen by speech therapy they recommended pureed and pudding thick liquids with aspiration precautions and oxygen via nasal cannula during feeds. Patient with decreased by mouth intake hypoalbuminemia Therefore placed on IV PPN, TPN discontinue since patient lost her triple-lumen catheter, spoke with patient's guardian Edith MedinaAmy phone [phone] discussed alternate feedings she chose PEG tube placement due to recurrent bout of pneumonia, surgical consult obtained case discussed with Dr. Santiago, plan is for PEG tube placement on Sunday ,Eliquis held on 10/13 , meanwhile will treat lung infection and stabilize pulmonary status . 8. UTI(multpile organisms) -completed course of antibiotics. 9. Hypothyroidism continue levothyroxine change to iv for sometimes difficult administration. 10.hyperglycemia: Likely due to D5W, will DC IV fluids if Humalog insulin follow blood sugars. 11. Fluid overload will continue IV PPN albumin improved to 2.4 give hydrochlorothiazide follow clinical course. DVT prophylaxis on compression boots and lovenox Full code Requires ongoing hospitalization for dysphagia and electrolyte abnormalities receiving IV ppn,and hypoxia Time Spent With Patient Time: Total time managing care of this patient today ____ minutes. Quality Stroke Does the patient have a stroke diagnosis?: No VTE Prior VTE?: No VTE Risk Level:: Medical - moderate - high VTE Device Contraindication: N/A - Device Ordered VTE Drug Contraindication: N/A - Med Ordered
[2022-10-14] MEDS: Insulin Lispro 100 UNIT/ML 3 ML VIAL 14 UNIT SUBCUT (13:27)
[2022-10-14] MEDS: Enoxaparin Sodium 40 MG/0.4 ML SYRINGE SUBCUT (13:28)
--- NOTE | 2022-10-14 13:50 | PM.PNNEP ---
Subjective Subjective Date of Service: 10/14/22 Interval history: Events noted non verbal Physical Exam Vital Signs: Vital Signs: Last Vital Signs Temp 98.1 F 10/14/22 10:55 Pulse 101 H 10/14/22 10:55 Resp 18 10/14/22 10:55 BP 127/65 10/14/22 10:55 Pulse Ox 96 10/14/22 10:55 O2 Del Method Oxymask 10/14/22 10:55 O2 Flow Rate 4 10/14/22 10:55 FiO2 21 10/02/22 07:00 BMI result Body Mass Index 32.1 Neck: Neck: Yes supple Resp: Auscultation: diminished lung sounds Cardio: Rate: regular rate GI: Palpation (GI): Soft to palpation Skin: General skin exam: no rashes or lesions noted Neuro: General: moves all extremities Objective Data Labs 10/11/22 07:48 10/14/22 06:23 Labs: Laboratory Results - last 24 hr 10/14/22 10/14/22 10/14/22 06:23 09:38 10:57 Sodium 148 H Potassium 4.8 D Chloride 121 H Carbon Dioxide 23 Anion Gap 9 L BUN 15 Creatinine 1.30 Estim Creat Clear Calc 53.6 Estimated GFR 41 POC Glucose 508 H* 530 H* Random Glucose 576 H* Calcium 9.3 Phosphorus 2.8 Magnesium 2.0 Albumin 2.4 L Triglycerides 200 10/14/22 10/14/22 11:05 12:14 Sodium Potassium Chloride Carbon Dioxide Anion Gap BUN Creatinine Estim Creat Clear Calc Estimated GFR POC Glucose 559 H* 508 H* Random Glucose Calcium Phosphorus Magnesium Albumin Triglycerides Microbiology Microbiology Results: Microbiology 10/01/22 18:06 Blood - Venous Blood Culture - Final No growth after 5 days. 10/01/22 18:06 Blood - Venous Blood Culture - Final No growth after 5 days. 09/29/22 23:00 Heel, Left Gram Stain - Final 09/29/22 23:00 Heel, Left Routine Culture - Final Proteus mirabilis Methicillin Res Staph Aureus 09/29/22 14:08 Blood - Venous Blood Culture - Final No growth after 5 days. 09/29/22 14:08 Blood - Venous Blood Culture - Final Coag negative Staphylococcus Peptostreptococcus species 09/29/22 23:55 Sputum - Suctioned Gram Stain - Final 09/29/22 23:55 Sputum - Suctioned Sputum Culture - Final 09/29/22 Unknown Urine Catheterized - Randall Catheter Urine Culture - Final Procedures Date of Service Date of Service: 10/14/22 Assessment & Plan Assessment and plan (1) Hypernatremia: Status: Acute Assessment and Plan: Hypernatremia due to free water deficit Serum sodium is better Can DC IVF Needs to closely monitor electrolytes/K Anemia Concur with other medical management Shall closely follow up Time Spent With Patient Time: Total time managing care of this patient today ____ minutes. Progress Note: Quality Stroke Does the patient have a stroke diagnosis?: No
[2022-10-14 14:18] LABS: Glucose, Whole Blood 479 mg/dL (60-115)
[2022-10-14 15:35] VITALS: BP 129/60; PULSE 105; RESP 16; TEMP 36.7; O2SAT 97
[2022-10-14 16:05] LABS: Glucose, Whole Blood 417 mg/dL (60-115)
[2022-10-14] MEDS: Insulin Lispro 100 UNIT/ML 3 ML VIAL SUBCUT ×2 (16:43→21:42)
--- NOTE | 2022-10-14 17:32 | PC.NURSE ---
Critical glucose reported to Dr Cagle in am POC's monitored throughout shift and reported. Sliding scale coverage ordered and given. Pt with increased urine output Dr Cagle notiifed. Will continue to monitor and report changes
[2022-10-14 19:42] VITALS: BP 121/52; PULSE 95; RESP 16; TEMP 36.3; O2SAT 98
[2022-10-14 19:58] LABS: Glucose, Whole Blood 316 mg/dL (60-115)
[2022-10-14] MEDS: Mirtazapine 7.5 MG TABLET PO (21:42)
[2022-10-15] VITALS (10 sets, daily range): BP systolic 95–158; BP diastolic 45–72; PULSE 91–110; RESP 18–28; TEMP 35.7–36.4; O2SAT 92–98
[2022-10-15] MEDS: Piperacillin Sodium/Tazobactam 3.375 GM in 0.9 % Sodium Chloride 50 ML IV ×2 (03:41→09:22)
[2022-10-15] MEDS: Fat Emulsions 20% 250 ML 14 ML IVCONT ×2 (05:23→19:09)
[2022-10-15] MEDS: Levothyroxine Sodium 100 MCG/5 ML VIAL 50 MCG IVPUSH (05:36)
[2022-10-15 06:28] LABS: Hematocrit 27.2 % (37.0-47.0); Hemoglobin 7.6 g/dl (12.0-16.0); Mean Corpuscular HGB Conc 27.9 g/dl (31.0-35.0); Mean Corpuscular Hemoglobin 29.3 pg (27.0-33.0); Mean Platelet Volume 12.1 fL (9.4-12.3); Red Blood Count 2.59 X10*6/uL (4.20-5.50)
[2022-10-15 06:40] LABS: Platelet Count 77 X10*3/uL (160-400)
[2022-10-15 06:56] LABS: Anion Gap 11 (12-20); Blood Urea Nitrogen 22 mg/dL (9-16); Calcium 10.5 mg/dL (8.4-10.2); Carbon Dioxide 23 mmol/L (22-29); Chloride 126 mmol/L (96-108); Creatinine Clr Calc Pharmacy 67.7; Estimated Glomerular Filt Rate 54; Glucose Random 231 mg/dL (60-115); Potassium 4.8 mmol/L (3.3-5.1); Sodium 155 mmol/L (135-145)
[2022-10-15 08:40] LABS: Albumin Level 2.5 g/dL (3.5-5.0); Magnesium 2.2 mg/dL (1.6-2.6); Phosphorus 3.4 mg/dL (2.7-4.5)
[2022-10-15 09:00] LABS: Glucose, Whole Blood 206 mg/dL (60-115)
[2022-10-15] MEDS: Insulin Lispro 100 UNIT/ML 3 ML VIAL SUBCUT ×4 (09:21→21:11)
[2022-10-15] MEDS: QUEtiapine Fumarate 50 MG TABLET PO ×3 (09:22→21:12)
[2022-10-15] MEDS: Divalproex Sodium Sprinkles 125 MG CAP.DR.SPR 1000 MG PO ×2 (09:22→21:12)
[2022-10-15] MEDS: Folic Acid 1 MG TABLET PO (09:22)
[2022-10-15] MEDS: Famotidine/PF 20 MG/2 ML VIAL IVPUSH (09:22)
[2022-10-15] MEDS: Zinc Oxide 20% Ointment 28.35 GM TUBE 1 APPL TOPICAL ×2 (09:43→21:26)
--- NOTE | 2022-10-15 09:50 | HO.PM.IMPN ---
Subjective Subjective Date of Service: 10/15/22 Interval History: Non verbal, no significant change in clinical status, blood sugars improved from 500-200 range, on 4 L of oxygen, FiO2 greater than 94% will wean oxygen, receiving IV PPN, no acute issues overnight. Review of Systems Review of Systems: Yes all other systems are reviewed and are negative Physical Exam Vital Signs: Vital Signs: Last Vital Signs Temp 97.1 F 10/15/22 07:21 Pulse 97 10/15/22 07:21 Resp 18 10/15/22 07:21 BP 117/55 L 10/15/22 07:21 Pulse Ox 95 10/15/22 07:21 O2 Del Method Oxymask 10/15/22 07:21 O2 Flow Rate 4 10/15/22 07:21 FiO2 21 10/02/22 07:00 BMI result Body Mass Index 32.1 Const: Other: Gen:? Awake, making noises, no resp distress Neck: supple Lungs:? Bilateral coarse breath sound Heart:? Tachy regular rate and rhythm Abd: soft, non-tender, non-distended Ext:? Bilateral upper and lower extremity edema Skin: warm/well-perfused Neuro: alert, nonverbal, moving all extremities Psych: impaired insight Objective Data Active Medications Acetaminophen (Acetaminophen Supp 650 Mg Supp.Rect) 650 mg ND Q6H PRN PRN Reason: Fever Last Admin: 10/07/22 01:59 Dose: 650 mg Documented By: ANTOIC Heparin Sodium (Porcine) 50 (units/ Sodium Chloride 5 ml) 0 units IVFLUSH QSHIFT REPLACED BY [facility] Last Admin: 10/15/22 09:12 Dose: Not Given Documented By: DEEPA Non-Admin Reason: IV Running Divalproex Sodium (Divalproex Sodium Sprinkles 125 Mg ) 1,000 mg PO BID REPLACED BY [facility] Last Admin: 10/15/22 09:22 Dose: 1,000 mg Documented By: DEEPA Enoxaparin Sodium (Enoxaparin Sodium 40 Mg/0.4 Ml Syringe) 40 mg SUBCUT Q24H REPLACED BY [facility] Last Admin: 10/14/22 13:28 Dose: 40 mg Documented By: NANCY Famotidine (Famotidine/Pf 20 Mg/2 Ml Vial) 20 mg IVPUSH DAILY REPLACED BY [facility] Last Admin: 10/15/22 09:22 Dose: 20 mg Documented By: DEEPA Folic Acid (Folic Acid 1 Mg Tablet) 1 mg PO DAILY REPLACED BY [facility] Last Admin: 10/15/22 09:22 Dose: 1 mg Documented By: DEEPA Glucose (Glucose Gel 15 Gm Gel..Gram.) 15 gm PO Q15M PRN; Protocol PRN Reason: per Hypoglycemia Standing Ord. Piperacillin Sod/Tazobactam (Sod 3.375 gm/ Sodium Chloride) 50 mls @ 100 mls/hr IV Q6H REPLACED BY [facility] Last Admin: 10/15/22 09:22 Dose: 100 mls/hr Documented By: DEEPA Magnesium Sulfate 10 meq/Potassium Phosphate 30 mmol/Potassium Acetate 30 meq/Amino Acids/Electrolytes/Dextrose 2,027.5 mls @ 85 mls/hr IVCONT DAILY@1800 REPLACED BY [facility] Stop: 10/15/22 17:52 Last Admin: 10/14/22 18:25 Dose: 85 mls/hr Documented By: NANCY Fat Emulsion Intravenous (Intralipid) 168 mls @ 14 mls/hr IVCONT BID@0600,1800 REPLACED BY [facility] Stop: 10/15/22 17:59 Last Admin: 10/15/22 05:23 Dose: 14 mls/hr Documented By: AUBREY Dextrose (D10) 250 mls @ 750 mls/hr IV Q15M PRN; Protocol PRN Reason: per Hypoglycemia Standing Ord. Magnesium Sulfate 10 meq/Potassium Phosphate 30 mmol/Potassium Acetate 30 meq/Amino Acids/Electrolytes/Dextrose 2,027.5 mls @ 85 mls/hr IVCONT DAILY@1800 REPLACED BY [facility] Stop: 10/16/22 17:52 Fat Emulsion Intravenous (Intralipid) 168 mls @ 14 mls/hr IVCONT BID@0600,1800 REPLACED BY [facility] Stop: 10/16/22 17:59 Insulin Human Lispro (Insulin Lispro 100 Unit/Ml 3 Ml Vial) 0 unit SUBCUT QIDACHS REPLACED BY [facility]; Protocol Last Admin: 10/15/22 09:21 Dose: 6 unit Documented By: DEEPA Levothyroxine Sodium (Levothyroxine Sodium 100 Mcg/5 Ml Vial) 50 mcg IVPUSH DAILY@0600 REPLACED BY [facility] Last Admin: 10/15/22 05:36 Dose: 50 mcg Documented By: AUBREY Mirtazapine (Mirtazapine 7.5 Mg Tablet) 7.5 mg PO BEDTIME [facility]JUAN Last Admin: 10/14/22 21:42 Dose: 7.5 mg Documented By: DAIANA Ondansetron HCl (Ondansetron Hcl 4 Mg/2 Ml Vial) 4 mg IVPUSH Q4H PRN PRN Reason: Nausea and Vomiting Last Admin: 10/05/22 14:18 Dose: 4 mg Documented By: MILTON Quetiapine Fumarate (Quetiapine Fumarate 50 Mg Tablet) 50 mg PO TID [facility]AN Last Admin: 10/15/22 09:22 Dose: 50 mg Documented By: DEEPA Zinc Oxide (Zinc Oxide 20% Ointment 28.35 Gm Tube) 1 appl TOPICAL BID DEJUAN; Protocol Last Admin: 10/15/22 09:43 Dose: 1 appl Documented By: DEEPA Labs 10/15/22 05:43 10/15/22 05:43 Labs: Laboratory Results - last 24 hr 10/14/22 10/14/22 10/14/22 10:57 11:05 12:14 MCV MCH MCHC RDW Plt Count MPV Absolute Nucleated RBC Nucleated RBC % (auto) Anion Gap Estim Creat Clear Calc Estimated GFR POC Glucose 530 H* 559 H* 508 H* Random Glucose Calcium Phosphorus Magnesium Albumin Triglycerides 10/14/22 10/14/22 10/14/22 14:14 15:59 19:45 MCV MCH MCHC RDW Plt Count MPV Absolute Nucleated RBC Nucleated RBC % (auto) Anion Gap Estim Creat Clear Calc Estimated GFR POC Glucose 479 H* 417 H* 316 H Random Glucose Calcium Phosphorus Magnesium Albumin Triglycerides 10/15/22 10/15/22 10/15/22 05:43 05:43 07:27 MCV 105.0 H MCH 29.3 MCHC 27.9 L RDW 19.0 H Plt Count 77 L D MPV 12.1 Absolute Nucleated RBC 0.000 Nucleated RBC % (auto) 0.0 Anion Gap 11 L Estim Creat Clear Calc 67.7 Estimated GFR 54 POC Glucose 206 H Random Glucose 231 H Calcium 10.5 H D Phosphorus 3.4 Magnesium 2.2 Albumin 2.5 L Triglycerides 190 Assessment and Plan (1) Aspiration into respiratory tract: Status: Acute (2) Hypernatremia: Status: Acute Plan 62-year-old lady admitted with UTI/ sepsis required ICU initially for pressors. Successfully weaned off pressures in transfer to floor. Day of discharge vomited and now with likely aspiration pneumonitis 1. Aspiration pneumonitis/ recurrent aspiration -finish 10 day course of IV antibiotic on 04/10, but developed hypoxia, repeat chest x-ray 10/10 showed new infiltrate therefore placed back on IV Zosyn 10/10 , re-evaluated by speech therapy they recommended pureed and pudding thick liquids diet , decreased by mouth intake since patient noted to have cough and secretions, will continue iv PPN will dc iv zosyn. 2. Hypernatremia/hypokalemia Hypokalemia resolved, sodium fluctuating 155 today will resume IV D5W, follow electrolyte and renal function 3. Acute hypoxic respiratory failure, repeat chest x-ray showed new left base opacity question pneumonia since patient at high risk for aspiration treated with IV Zosyn started 10/10 , will DC today after 5 day course decreased oxygen requirement continue to wean oxygen Frequent suctioning and close monitoring for aspiration with one-to-one feed , keep head of bed elevated. 4. Pulmonary embolism (by history) on Eliquis , monitor closely for anemia . Eliquis on hold since 10/13 for possible PEG tube placement on Sunday. 5. Schizoaffective disorder -continue home medications Depakote, Seroquel and mirtazepine 7.5 at bedtime 6. Acute on chronic macrocytic anemia status post 2 units of packed RBC hematocrit improved but dropped today to 27.2, no active bleeding noted, normal B12, low folate Continue folic acid 1 mg daily , drop in hematocrit and platelet question related to IV Zosyn will DC Zosyn repeat CBC later today if remain low will transfuse 1 unit 7. Dysphagia seen by speech therapy they recommended pureed and pudding thick liquids with aspiration precautions and oxygen via nasal cannula during feeds. Patient with decreased by mouth intake hypoalbuminemia Therefore placed on IV PPN, TPN discontinue since patient lost her triple-lumen catheter, spoke with patient's guardian Edith MedinaAmy phone [phone] discussed alternate feedings she chose PEG tube placement due to recurrent bout of pneumonia, surgical consult obtained case discussed with Dr. Santiago, plan is for PEG tube placement on Monday 10/16,,Eliquis held on 10/13 , meanwhile will stabilize pulmonary status . 8. UTI(multpile organisms) -completed course of antibiotics. 9. Hypothyroidism continue levothyroxine change to iv for sometimes difficult administration. 10.hyperglycemia: Likely due to D5W, cont. Humalog insulin sliding scale, follow blood sugars. 11. Fluid overload likely due to low albumin/ivf, given 1 dose of hydrochlorothiazide on 10/14. Hold further diuretics DVT prophylaxis on compression boots and lovenox Full code Requires ongoing hospitalization for dysphagia and electrolyte abnormalities receiving IV ppn,and hypoxia . Time Spent With Patient Time: Total time managing care of this patient today ____ minutes. Quality Stroke Does the patient have a stroke diagnosis?: No VTE Prior VTE?: No VTE Risk Level:: Medical - moderate - high VTE Device Contraindication: N/A - Device Ordered VTE Drug Contraindication: N/A - Med Ordered
[2022-10-15] MEDS: Dextrose 5 % 1,000 ML 100 ML IVCONT ×2 (11:00→21:12)
[2022-10-15 12:01] LABS: Glucose, Whole Blood 248 mg/dL (60-115)
[2022-10-15] MEDS: Enoxaparin Sodium 40 MG/0.4 ML SYRINGE SUBCUT (12:41)
[2022-10-15 13:51] LABS: Mean Corpuscular Volume 103.3 fL (80.0-98.0); PLT CLUMP 1
[2022-10-15 13:53] LABS: Hematocrit 24.7 % (37.0-47.0); Mean Corpuscular HGB Conc 28.3 g/dl (31.0-35.0); Mean Corpuscular Hemoglobin 29.3 pg (27.0-33.0); Mean Platelet Volume 11.2 fL (9.4-12.3); Red Blood Count 2.39 X10*6/uL (4.20-5.50); Red Cell Distribution Width 18.6 % (11.0-16.0); White Blood Count 8.1 X10*3/uL (4.8-10.8)
[2022-10-15 13:59] LABS: Platelet Count 88 X10*3/uL (160-400)
[2022-10-15 18:16] LABS: Glucose, Whole Blood 247 mg/dL (60-115)
--- NOTE | 2022-10-15 19:27 | PM.PNNEP ---
Subjective Subjective Date of Service: 10/15/22 Interval history: Events noted Na is up Non verbal, no significant change in clinical status, blood sugars improved from 500-200 range, on 4 L of oxygen, FiO2 greater than 94% will wean oxygen, receiving IV PPN, no acute issues overnight. Physical Exam Vital Signs: Vital Signs: Last Vital Signs Temp 97 F 10/15/22 19:19 Pulse 99 10/15/22 19:19 Resp 20 10/15/22 19:19 BP 129/61 10/15/22 19:19 Pulse Ox 92 10/15/22 19:19 O2 Del Method Oxymask 10/15/22 19:19 O2 Flow Rate 3 10/15/22 19:19 FiO2 21 10/02/22 07:00 BMI result Body Mass Index 32.1 Neck: Neck: Yes supple Resp: Auscultation: diminished lung sounds Cardio: Rate: regular rate GI: Palpation (GI): Soft to palpation Skin: General skin exam: no rashes or lesions noted Neuro: General: moves all extremities Objective Data Labs 10/15/22 13:46 10/15/22 05:43 Labs: Laboratory Results - last 24 hr 10/14/22 10/15/22 10/15/22 19:45 05:43 05:43 WBC 9.0 RBC 2.59 L Hgb 7.6 L Hct 27.2 L MCV 105.0 H MCH 29.3 MCHC 27.9 L RDW 19.0 H Plt Count 77 L D MPV 12.1 Absolute Nucleated RBC 0.000 Nucleated RBC % (auto) 0.0 Sodium 155 H Potassium 4.8 Chloride 126 H Carbon Dioxide 23 Anion Gap 11 L BUN 22 H Creatinine 1.03 Estim Creat Clear Calc 67.7 Estimated GFR 54 POC Glucose 316 H Random Glucose 231 H Calcium 10.5 H D Phosphorus 3.4 Magnesium 2.2 Albumin 2.5 L Triglycerides 190 Blood Type Antibody Screen Crossmatch 10/15/22 10/15/22 10/15/22 07:27 11:36 13:46 WBC 8.1 RBC 2.39 L Hgb 7.0 L* Hct 24.7 L MCV 103.3 H MCH 29.3 MCHC 28.3 L RDW 18.6 H Plt Count 88 L MPV 11.2 Absolute Nucleated RBC 0.000 Nucleated RBC % (auto) 0.0 Sodium Potassium Chloride Carbon Dioxide Anion Gap BUN Creatinine Estim Creat Clear Calc Estimated GFR POC Glucose 206 H 248 H Random Glucose Calcium Phosphorus Magnesium Albumin Triglycerides Blood Type Antibody Screen Crossmatch 10/15/22 10/15/22 15:15 15:54 WBC RBC Hgb Hct MCV MCH MCHC RDW Plt Count MPV Absolute Nucleated RBC Nucleated RBC % (auto) Sodium Potassium Chloride Carbon Dioxide Anion Gap BUN Creatinine Estim Creat Clear Calc Estimated GFR POC Glucose 247 H Random Glucose Calcium Phosphorus Magnesium Albumin Triglycerides Blood Type A Positive Antibody Screen NEGATIVE Crossmatch See Detail Microbiology Microbiology Results: Microbiology 10/01/22 18:06 Blood - Venous Blood Culture - Final No growth after 5 days. 10/01/22 18:06 Blood - Venous Blood Culture - Final No growth after 5 days. 09/29/22 23:00 Heel, Left Gram Stain - Final 09/29/22 23:00 Heel, Left Routine Culture - Final Proteus mirabilis Methicillin Res Staph Aureus 09/29/22 14:08 Blood - Venous Blood Culture - Final No growth after 5 days. 09/29/22 14:08 Blood - Venous Blood Culture - Final Coag negative Staphylococcus Peptostreptococcus species 09/29/22 23:55 Sputum - Suctioned Gram Stain - Final 09/29/22 23:55 Sputum - Suctioned Sputum Culture - Final 09/29/22 Unknown Urine Catheterized - Randall Catheter Urine Culture - Final Procedures Date of Service Date of Service: 10/15/22 Assessment & Plan Assessment and plan (1) Hypernatremia: Status: Acute Assessment and Plan: Hypernatremia due to free water deficit Serum sodium is better REstart IVF - D5W and keep I > O Needs to closely monitor electrolytes/K Anemia Concur with other medical management Shall closely follow up Time Spent With Patient Time: Total time managing care of this patient today ____ minutes. Progress Note: Quality Stroke Does the patient have a stroke diagnosis?: No
[2022-10-15 19:57] LABS: Glucose, Whole Blood 164 mg/dL (60-115)
[2022-10-15] MEDS: Mirtazapine 7.5 MG TABLET PO (21:13)
[2022-10-16 04:00] VITALS: BP 106/68; PULSE 96; RESP 18; TEMP 36.8; O2SAT 95
[2022-10-16 04:53] LABS: Mean Corpuscular Volume 101.4 fL (80.0-98.0); PLT CLUMP 1; Red Cell Distribution Width 17.9 % (11.0-16.0)
[2022-10-16 04:55] LABS: Hematocrit 29.2 % (37.0-47.0); Hemoglobin 8.6 g/dl (12.0-16.0); Mean Corpuscular HGB Conc 29.5 g/dl (31.0-35.0); Mean Corpuscular Hemoglobin 29.9 pg (27.0-33.0); Mean Platelet Volume 11.8 fL (9.4-12.3); Red Blood Count 2.88 X10*6/uL (4.20-5.50)
[2022-10-16 04:57] LABS: Platelet Count 88 X10*3/uL (160-400); White Blood Count 8.3 X10*3/uL (4.8-10.8)
[2022-10-16 04:59] LABS: INTERNATIONAL NORM RATIO 1.2 (0.9-1.1); Prothrombin Time 13.6 SEC (10.0-13.1)
[2022-10-16 05:13] LABS: Anion Gap 10 (12-20); Blood Urea Nitrogen 27 mg/dL (9-16); Calcium 10.5 mg/dL (8.4-10.2); Carbon Dioxide 25 mmol/L (22-29); Chloride 121 mmol/L (96-108); Creatinine Clr Calc Pharmacy 69.7; Estimated Glomerular Filt Rate 56; Glucose Random 301 mg/dL (60-115); Potassium 4.8 mmol/L (3.3-5.1); Sodium 151 mmol/L (135-145)
[2022-10-16] MEDS: Levothyroxine Sodium 100 MCG/5 ML VIAL 50 MCG IVPUSH (05:36)
[2022-10-16 06:45] LABS: Magnesium 2.1 mg/dL (1.6-2.6); Phosphorus 3.6 mg/dL (2.7-4.5)
[2022-10-16 07:11] VITALS: BP 98/52; PULSE 100; RESP 16; TEMP 36.2; O2SAT 90
[2022-10-16] MEDS: Dextrose 5 % 1,000 ML 100 ML IVCONT ×2 (07:25→18:46)
[2022-10-16] MEDS: Fat Emulsions 20% 250 ML 14 ML IVCONT (07:25)
[2022-10-16] MEDS: Famotidine/PF 20 MG/2 ML VIAL IVPUSH (07:28)
[2022-10-16 07:29] LABS: Glucose, Whole Blood 269 mg/dL (60-115)
[2022-10-16] MEDS: Insulin Lispro 100 UNIT/ML 3 ML VIAL SUBCUT ×4 (08:00→22:25)
[2022-10-16] MEDS: Zinc Oxide 20% Ointment 28.35 GM TUBE 1 APPL TOPICAL ×2 (08:01→22:26)
[2022-10-16 08:54] LABS: Estimated Average Glucose 105 mg/dL; Hemoglobin A1c % 5.3 %
--- NOTE | 2022-10-16 11:00 | PM.PNNEP ---
Subjective Subjective Date of Service: 10/18/22 Interval history: Events noted Physical Exam Vital Signs: Vital Signs: Last Vital Signs Temp 97.1 F 10/16/22 07:11 Pulse 100 10/16/22 07:11 Resp 16 10/16/22 07:11 BP 98/52 L 10/16/22 07:11 Pulse Ox 90 L 10/16/22 07:11 O2 Del Method Oxymask 10/16/22 07:11 O2 Flow Rate 3 10/16/22 07:11 FiO2 21 10/02/22 07:00 BMI result Body Mass Index 32.1 Neck: Neck: Yes supple Resp: Auscultation: diminished lung sounds Cardio: Rate: regular rate GI: Palpation (GI): Soft to palpation Skin: General skin exam: no rashes or lesions noted Neuro: General: moves all extremities Objective Data Labs 10/16/22 04:10 10/16/22 04:10 Labs: Laboratory Results - last 24 hr 10/15/22 10/15/22 10/15/22 11:36 13:46 15:15 WBC 8.1 RBC 2.39 L Hgb 7.0 L* Hct 24.7 L MCV 103.3 H MCH 29.3 MCHC 28.3 L RDW 18.6 H Plt Count 88 L MPV 11.2 Absolute Nucleated RBC 0.000 Nucleated RBC % (auto) 0.0 PT INR Sodium Potassium Chloride Carbon Dioxide Anion Gap BUN Creatinine Estim Creat Clear Calc Estimated GFR POC Glucose 248 H Random Glucose Estimat Average Glucose Hemoglobin A1c % Calcium Phosphorus Magnesium Blood Type A Positive Antibody Screen NEGATIVE Crossmatch See Detail 10/15/22 10/15/22 10/16/22 15:54 19:51 04:10 WBC 8.3 RBC 2.88 L D Hgb 8.6 L D Hct 29.2 L MCV 101.4 H MCH 29.9 MCHC 29.5 L RDW 17.9 H Plt Count 88 L MPV 11.8 Absolute Nucleated RBC 0.000 Nucleated RBC % (auto) 0.0 PT INR Sodium Potassium Chloride Carbon Dioxide Anion Gap BUN Creatinine Estim Creat Clear Calc Estimated GFR POC Glucose 247 H 164 H Random Glucose Estimat Average Glucose Hemoglobin A1c % Calcium Phosphorus Magnesium Blood Type Antibody Screen Crossmatch 10/16/22 10/16/22 10/16/22 04:10 04:10 04:10 WBC RBC Hgb Hct MCV MCH MCHC RDW Plt Count MPV Absolute Nucleated RBC Nucleated RBC % (auto) PT 13.6 H INR 1.2 H Sodium 151 H Potassium 4.8 Chloride 121 H Carbon Dioxide 25 Anion Gap 10 L BUN 27 H Creatinine 1.00 Estim Creat Clear Calc 69.7 Estimated GFR 56 POC Glucose Random Glucose 301 H Estimat Average Glucose 105 Hemoglobin A1c % 5.3 Calcium 10.5 H Phosphorus 3.6 Magnesium 2.1 Blood Type Antibody Screen Crossmatch 10/16/22 07:11 WBC RBC Hgb Hct MCV MCH MCHC RDW Plt Count MPV Absolute Nucleated RBC Nucleated RBC % (auto) PT INR Sodium Potassium Chloride Carbon Dioxide Anion Gap BUN Creatinine Estim Creat Clear Calc Estimated GFR POC Glucose 269 H Random Glucose Estimat Average Glucose Hemoglobin A1c % Calcium Phosphorus Magnesium Blood Type Antibody Screen Crossmatch Microbiology Microbiology Results: Microbiology 10/01/22 18:06 Blood - Venous Blood Culture - Final No growth after 5 days. 10/01/22 18:06 Blood - Venous Blood Culture - Final No growth after 5 days. 09/29/22 23:00 Heel, Left Gram Stain - Final 09/29/22 23:00 Heel, Left Routine Culture - Final Proteus mirabilis Methicillin Res Staph Aureus 09/29/22 14:08 Blood - Venous Blood Culture - Final No growth after 5 days. 09/29/22 14:08 Blood - Venous Blood Culture - Final Coag negative Staphylococcus Peptostreptococcus species 09/29/22 23:55 Sputum - Suctioned Gram Stain - Final 09/29/22 23:55 Sputum - Suctioned Sputum Culture - Final 09/29/22 Unknown Urine Catheterized - Randall Catheter Urine Culture - Final Procedures Date of Service Date of Service: 10/16/22 Assessment & Plan Assessment and plan (1) Hypernatremia: Status: Acute Assessment and Plan: Hypernatremia due to free water deficit Serum sodium is at 151 IVF - D5W and keep I > O Needs to closely monitor electrolytes/K Anemia Concur with other medical management Shall closely follow up Time Spent With Patient Time: Total time managing care of this patient today ____ minutes. Progress Note: Quality Stroke Does the patient have a stroke diagnosis?: No
[2022-10-16 11:25] VITALS: BP 100/60; PULSE 102; RESP 16; TEMP 36.3; O2SAT 91
[2022-10-16 11:27] LABS: Glucose, Whole Blood 287 mg/dL (60-115)
--- NOTE | 2022-10-16 12:09 | MHC.SLORD ---
Speech Language Pathology Order Status: Pt on Hold Tray Diet. Per MD, planning PEG today. No PO trials given. BR[facility]TER to continue to follow.
--- NOTE | 2022-10-16 12:54 | MHC.CM.PN ---
EMR REVIEWED, PT REMAINS ON PPN, SODIUM REMAINS ELEVATED AND PT REQUIRING 4L O2 ON OXYMASK, PLAN FOR PEG TUBE PLACEMENT PRIOR TO D/C BACK TO [facility], CM WILL CONT TO FOLLOW D/C NEEDS.
--- NOTE | 2022-10-16 13:21 | MHC.CLN ---
F/U PEG PLACEMENT PLANNED FOR TODAY REVIEWED LABS DISCUSSED WITH PHARMACY NOTED D5W IVF TRAY AND PPN ON HOLD CURRENTLY FOLLOWING WITH TEAM IF TF NEEDED; RECOMMEND PROMOTE AT MAX GOAL RATE 70ML/HR WITH 240ML FREE WATER FLUSHES Q 6HRS TO PROVIDE 1680KCLAS (23KCALS/KG), 105G PROTEIN (1.4G/KG), 2369ML TOTAL WATER FROM FORMULA AND FLUSHES (32ML/KG) START FORMULA AT 20ML/HR AND INCREASE BY 10ML Q 4 HRS UNTIL MAX GOAL IS ACHIEVED MONITOR TOLERANCE, RESIDUALS AND LYTES
--- NOTE | 2022-10-16 14:16 | P.PNIM_ITS ---
Subjective Subjective Date of Service: 10/16/22 Interval History: Nonverbal Plan PEG today BG improved Review of Systems Review of Systems: Yes Unobtainable due to mental status Physical Exam Vital Signs: Vital Signs: Last Vital Signs Temp 97.4 F 10/16/22 11:25 Pulse 102 H 10/16/22 11:25 Resp 16 10/16/22 11:25 BP 100/60 10/16/22 11:25 Pulse Ox 91 L 10/16/22 11:25 O2 Del Method Oxymask 10/16/22 11:25 O2 Flow Rate 4 10/16/22 11:25 FiO2 21 10/02/22 07:00 BMI result Body Mass Index 32.1 Gen: in no acute distress HEENT: sclera anicteric, moist mucus membranes Neck: supple Lungs: diminished bilaterally Heart: regular rate and rhythm, no murmurs Abd: soft, non-tender, non-distended Ext: generalized edema Skin: warm/well-perfused Neuro: alert, nonverbal, moving all extremities Psych: impaired insight Objective Data Active Medications Acetaminophen (Acetaminophen Supp 650 Mg Supp.Rect) 650 mg DC Q6H PRN PRN Reason: Fever Last Admin: 10/07/22 01:59 Dose: 650 mg Documented By: ANTOIC Heparin Sodium (Porcine) 50 (units/ Sodium Chloride 5 ml) 0 units IVFLUSH QSHIFT [facility] Last Admin: 10/16/22 13:01 Dose: Not Given Documented By: DOT Non-Admin Reason: IV Running Divalproex Sodium (Divalproex Sodium Sprinkles 125 Mg ) 1,000 mg PO BID [facility] Last Admin: 10/16/22 07:25 Dose: Not Given Documented By: DOT Non-Admin Reason: NPO Famotidine (Famotidine/Pf 20 Mg/2 Ml Vial) 20 mg IVPUSH DAILY [facility] Last Admin: 10/16/22 07:28 Dose: 20 mg Documented By: DOT Folic Acid (Folic Acid 1 Mg Tablet) 1 mg PO DAILY [facility] Last Admin: 10/16/22 07:25 Dose: Not Given Documented By: DOT Non-Admin Reason: NPO Glucose (Glucose Gel 15 Gm Gel..Gram.) 15 gm PO Q15M PRN; Protocol PRN Reason: per Hypoglycemia Standing Ord. Dextrose (D10) 250 mls @ 750 mls/hr IV Q15M PRN; Protocol PRN Reason: per Hypoglycemia Standing Ord. Magnesium Sulfate 10 meq/Potassium Phosphate 30 mmol/Potassium Acetate 30 meq/ Amino Acids/Electrolytes/Dextrose 2,027.5 mls @ 85 mls/hr IVCONT DAILY@1800 [facility] Stop: 10/16/22 17:52 Last Admin: 10/15/22 19:09 Dose: 85 mls/hr Documented By: DEEPA Fat Emulsion Intravenous (Intralipid) 168 mls @ 14 mls/hr IVCONT BID@0600,1800 [facility] Stop: 10/16/22 17:59 Last Admin: 10/16/22 07:25 Dose: 14 mls/hr Documented By: DOT Dextrose (D5w) 1,000 mls @ 100 mls/hr IVCONT .Q10H [facility] Last Infusion: 10/16/22 07:41 Dose: 0 mls/hr Documented By: DOT Cefazolin Sodium/Dextrose (Ancef) 2 gm in 50 mls @ 100 mls/hr IV PREOP ONE Stop: 10/17/22 13:40 Insulin Human Lispro (Insulin Lispro 100 Unit/Ml 3 Ml Vial) 0 unit SUBCUT [facility]; Protocol Last Admin: 10/16/22 12:59 Dose: 9 unit Documented By: DOT Levothyroxine Sodium (Levothyroxine Sodium 100 Mcg/5 Ml Vial) 50 mcg IVPUSH DAILY@0600 [facility] Last Admin: 10/16/22 05:36 Dose: 50 mcg Documented By: SARMAD Mirtazapine (Mirtazapine 7.5 Mg Tablet) 7.5 mg PO BEDTIME [facility] Last Admin: 10/15/22 21:13 Dose: 7.5 mg Documented By: SARMAD Ondansetron HCl (Ondansetron Hcl 4 Mg/2 Ml Vial) 4 mg IVPUSH Q4H PRN PRN Reason: Nausea and Vomiting Last Admin: 10/05/22 14:18 Dose: 4 mg Documented By: MILTON Quetiapine Fumarate (Quetiapine Fumarate 50 Mg Tablet) 50 mg PO TID [facility] Last Admin: 10/16/22 13:01 Dose: Not Given Documented By: DOT Non-Admin Reason: NPO Zinc Oxide (Zinc Oxide 20% Ointment 28.35 Gm Tube) 1 appl TOPICAL BID [facility]; Protocol Last Admin: 10/16/22 08:01 Dose: 1 appl Documented By: DOT Labs 10/16/22 04:10 10/16/22 04:10 Labs: Laboratory Results - last 24 hr 10/15/22 10/15/22 10/15/22 13:46 15:15 15:54 MCV 103.3 H MCH 29.3 MCHC 28.3 L RDW 18.6 H Plt Count 88 L MPV 11.2 Absolute Nucleated RBC 0.000 Nucleated RBC % (auto) 0.0 PT INR Anion Gap Estim Creat Clear Calc Estimated GFR POC Glucose 247 H Random Glucose Estimat Average Glucose Hemoglobin A1c % Calcium Phosphorus Magnesium Blood Type A Positive Antibody Screen NEGATIVE Crossmatch See Detail 10/15/22 10/16/22 10/16/22 19:51 04:10 04:10 MCV 101.4 H MCH 29.9 MCHC 29.5 L RDW 17.9 H Plt Count 88 L MPV 11.8 Absolute Nucleated RBC 0.000 Nucleated RBC % (auto) 0.0 PT INR Anion Gap 10 L Estim Creat Clear Calc 69.7 Estimated GFR 56 POC Glucose 164 H Random Glucose 301 H Estimat Average Glucose Hemoglobin A1c % Calcium 10.5 H Phosphorus 3.6 Magnesium 2.1 Blood Type Antibody Screen Crossmatch 10/16/22 10/16/22 10/16/22 04:10 04:10 07:11 MCV MCH MCHC RDW Plt Count MPV Absolute Nucleated RBC Nucleated RBC % (auto) PT 13.6 H INR 1.2 H Anion Gap Estim Creat Clear Calc Estimated GFR POC Glucose 269 H Random Glucose Estimat Average Glucose 105 Hemoglobin A1c % 5.3 Calcium Phosphorus Magnesium Blood Type Antibody Screen Crossmatch 10/16/22 11:23 MCV MCH MCHC RDW Plt Count MPV Absolute Nucleated RBC Nucleated RBC % (auto) PT INR Anion Gap Estim Creat Clear Calc Estimated GFR POC Glucose 287 H Random Glucose Estimat Average Glucose Hemoglobin A1c % Calcium Phosphorus Magnesium Blood Type Antibody Screen Crossmatch Assessment and Plan (1) Aspiration into respiratory tract: Status: Acute (2) Hypernatremia: Status: Acute Plan hospital d#18 62yo F admitted initially to ICU for pressor support for sepsis due to UTI. Transferred to floor then vomited, developed aspiration pneumonitis # aspiration pneumonitis/ recurrent aspiration - finished 10-day course of IV antibiotic on 10/09, but developed hypoxia; repeat chest x-ray 10/10 showed new infiltrate, therefore placed back on IV Zosyn 10/10- 10/15 - re-evaluated by speech therapy, recommended pureed and pudding thick liquids diet - decreased by mouth intake since; patient noted to have cough and secretions - given dysphagia + recurrent aspirations and decreased PO intake, pt placed on IV PPN. discussion with pt's guardian previously by Dr Cagle resulted in plan to proceed with PEG placement 10/16 # acute hypoxic resp failure - treated 2x for aspiration pneumonia - frequent suctioning and close monitoring for aspiration with one-to-one feeding; keep head of bed elevated. # hypernatremia, hypovolemic - replete with D5W, improved from 155 to 151 today # hyperglycemia without DM - A1c 5.3, give correction-dose lispro # hypoK - repleted # acute/chronic macrocytic anemia # folate deficiency - s/p 2u pRBCs 10/03/22 and 1u pRBCs 10/15/22 - replace folate # hx of PE - apixaban held 10/13 for PEG placement # schizoaffective disorder - continue valproate, quetiapine, mirtazapine # UTI, multiple - completed antibiotics # hypothyroidism - continue lT4 # fluid overload - likely due to hypoalbuminemia + hypotonic fluid given IV; given 1 dose HCTZ on 10/14 # multiple wounds - R posterior knee, unstageable: silver alginate - coccyx, stage 2: Zn oxide/silver alginate - B heels, unstageable: silver alginate - R posterior ankle, unstageable: Betadine paint - R hand, skin tear: Xeroform # VTE ppx: apixaban on hold # dispo: eventual return to [facility] for LTC In my clinical judgment, the patient requires continued inpatient hospitalization for the following reasons: PEG tube Time Spent With Patient Time: Total time managing care of this patient today ___45_ minutes. Quality Stroke Does the patient have a stroke diagnosis?: No VTE Prior VTE?: No VTE Risk Level:: Medical - moderate - high VTE Device Contraindication: N/A - Device Ordered VTE Drug Contraindication: N/A - Med Ordered
[2022-10-16 15:27] VITALS: BP 122/49; PULSE 106; RESP 20; TEMP 36.6; O2SAT 93
--- NOTE | 2022-10-16 15:36 | P.PNGS_ITS ---
Subjective Subjective Date of Service: 10/16/22 Interval history: No significant changes Still on O2 by face mask at 3 L per minute Patient constantly moaning and intelligibly Physical Exam Vital Signs: Vital Signs: Last Vital Signs Temp 97.8 F 10/16/22 15:27 Pulse 106 H 10/16/22 15:27 Resp 20 10/16/22 15:27 BP 122/49 L 10/16/22 15:27 Pulse Ox 93 10/16/22 15:27 O2 Del Method Oxymask 10/16/22 15:27 O2 Flow Rate 3 10/16/22 15:27 FiO2 21 10/02/22 07:00 BMI result Body Mass Index 32.1 Const: Other: No verbal output, constantly moaning, with O2 supplementation Resp: Other: Appears short of breath Cardio: Rate: tachycardic GI: Other: No surgical scars Palpation (GI): Soft to palpation, not firm and nontender Objective Data Active Medications Acetaminophen (Acetaminophen Supp 650 Mg Supp.Rect) 650 mg [place] Q6H PRN PRN Reason: Fever Last Admin: 10/07/22 01:59 Dose: 650 mg Documented By: GAGANOIC Heparin Sodium (Porcine) 50 (units/ Sodium Chloride 5 ml) [facility] Last Admin: 10/16/22 13:01 Dose: Not Given Documented By: DOT Non-Admin Reason: IV Running Divalproex Sodium (Divalproex Sodium Sprinkles 125 Mg ) 1,000 mg PO BID [facility] Last Admin: 10/16/22 07:25 Dose: Not Given Documented By: DOT Non-Admin Reason: NPO Famotidine (Famotidine/Pf 20 Mg/2 Ml Vial) 20 mg IVPUSH DAILY [facility] Last Admin: 10/16/22 07:28 Dose: 20 mg Documented By: DOT Folic Acid (Folic Acid 1 Mg Tablet) 1 mg PO DAILY [facility] Last Admin: 10/16/22 07:25 Dose: Not Given Documented By: DOT Non-Admin Reason: NPO Glucose (Glucose Gel 15 Gm Gel..Gram.) 15 gm PO Q15M PRN; Protocol PRN Reason: per Hypoglycemia Standing Ord. Dextrose (D10) 250 mls @ 750 mls/hr IV Q15M PRN; Protocol PRN Reason: per Hypoglycemia Standing Ord. Magnesium Sulfate 10 meq/Potassium Phosphate 30 mmol/Potassium Acetate 30 meq/Amino Acids/Electrolytes/Dextrose 2,027.5 mls @ 85 mls/hr IVCONT DAILY@1800 [facility] Stop: 10/16/22 17:52 Last Admin: 10/15/22 19:09 Dose: 85 mls/hr Documented By: DEEPA Fat Emulsion Intravenous (Intralipid) 168 mls @ 14 mls/hr IVCONT BID@0600,1800 [facility] Stop: 10/16/22 17:59 Last Admin: 10/16/22 07:25 Dose: 14 mls/hr Documented By: DOT Dextrose (D5w) 1,000 mls @ 100 mls/hr IVCONT .Q10H [facility] Last Infusion: 10/16/22 07:41 Dose: 0 mls/hr Documented By: DOT Cefazolin Sodium/Dextrose (Ancef) 2 gm in 50 mls @ 100 mls/hr IV PREOP ONE Stop: 10/17/22 13:40 Insulin Human Lispro (Insulin Lispro 100 Unit/Ml 3 Ml Vial) 0 unit SUBCUT QIDACHS [facility]; Protocol Last Admin: 10/16/22 12:59 Dose: 9 unit Documented By: DOT Levothyroxine Sodium (Levothyroxine Sodium 100 Mcg/5 Ml Vial) 50 mcg IVPUSH DAILY@0600 [facility] Last Admin: 10/16/22 05:36 Dose: 50 mcg Documented By: SARMAD Mirtazapine (Mirtazapine 7.5 Mg Tablet) 7.5 mg PO BEDTIME [facility] Last Admin: 10/15/22 21:13 Dose: 7.5 mg Documented By: SARMAD Ondansetron HCl (Ondansetron Hcl 4 Mg/2 Ml Vial) 4 mg IVPUSH Q4H PRN PRN Reason: Nausea and Vomiting Last Admin: 10/05/22 14:18 Dose: 4 mg Documented By: MILTON Quetiapine Fumarate (Quetiapine Fumarate 50 Mg Tablet) 50 mg PO TID [facility] Last Admin: 10/16/22 13:01 Dose: Not Given Documented By: DOT Non-Admin Reason: NPO Zinc Oxide (Zinc Oxide 20% Ointment 28.35 Gm Tube) 1 appl TOPICAL BID [facility]; Protocol Last Admin: 10/16/22 08:01 Dose: 1 appl Documented By: DOT Labs 10/16/22 04:10 10/16/22 04:10 Labs: Laboratory Results - last 24 hr 10/15/22 10/15/22 10/15/22 15:15 15:54 19:51 MCV MCH MCHC RDW Plt Count MPV Absolute Nucleated RBC Nucleated RBC % (auto) PT INR Anion Gap Estim Creat Clear Calc Estimated GFR POC Glucose 247 H 164 H Random Glucose Estimat Average Glucose Hemoglobin A1c % Calcium Phosphorus Magnesium Blood Type A Positive Antibody Screen NEGATIVE Crossmatch See Detail 10/16/22 10/16/22 10/16/22 04:10 04:10 04:10 MCV 101.4 H MCH 29.9 MCHC 29.5 L RDW 17.9 H Plt Count 88 L MPV 11.8 Absolute Nucleated RBC 0.000 Nucleated RBC % (auto) 0.0 PT 13.6 H INR 1.2 H Anion Gap 10 L Estim Creat Clear Calc 69.7 Estimated GFR 56 POC Glucose Random Glucose 301 H Estimat Average Glucose Hemoglobin A1c % Calcium 10.5 H Phosphorus 3.6 Magnesium 2.1 Blood Type Antibody Screen Crossmatch 10/16/22 10/16/22 10/16/22 04:10 07:11 11:23 MCV MCH MCHC RDW Plt Count MPV Absolute Nucleated RBC Nucleated RBC % (auto) PT INR Anion Gap Estim Creat Clear Calc Estimated GFR POC Glucose 269 H 287 H Random Glucose Estimat Average Glucose 105 Hemoglobin A1c % 5.3 Calcium Phosphorus Magnesium Blood Type Antibody Screen Crossmatch Procedures Date of Service Date of Service: 10/16/22 Progress Note: A&P Assessment and plan (1) Schizoaffective disorder: Status: Acute Assessment and Plan: With recent aspiration pneumonia Peg tube temporarily planned for tomorrow She still appears to have some shortness of breath, also requiring supplemental O2 Will have the anesthesiologist await her tomorrow prior to procedure Will update her healthcare proxy I have had discussions with her healthcare proxy Edith Angeles Time Spent With Patient Time: Total time managing care of this patient today ____ minutes. Quality Stroke Does the patient have a stroke diagnosis?: No VTE Prior VTE?: No VTE Risk Level:: Medical - moderate - high VTE Device Contraindication: N/A - Device Ordered VTE Drug Contraindication: N/A - Med Ordered
[2022-10-16 16:40] LABS: Glucose, Whole Blood 246 mg/dL (60-115)
[2022-10-16 19:57] VITALS: BP 128/59; PULSE 102; RESP 20; TEMP 36.1; O2SAT 91
[2022-10-16 20:51] LABS: Glucose, Whole Blood 252 mg/dL (60-115)
[2022-10-16] MEDS: QUEtiapine Fumarate 50 MG TABLET PO (22:25)
[2022-10-16] MEDS: Divalproex Sodium Sprinkles 125 MG CAP.DR.SPR 1000 MG PO (22:25)
[2022-10-16] MEDS: Mirtazapine 7.5 MG TABLET PO (22:26)
[2022-10-16 23:56] VITALS: BP 93/67; PULSE 103; RESP 112; TEMP 36.5; O2SAT 91
[2022-10-17] MEDS: Heparin Sodium,Porcine Flush 50 UNITS, 0.9 % Sodium Chloride Flush 5 ML IVFLUSH ×3 (00:03→16:06)
[2022-10-17 03:06] VITALS: BP 107/58; PULSE 95; RESP 18; TEMP 36.5; O2SAT 97
[2022-10-17] MEDS: Dextrose 5 % 1,000 ML 100 ML IVCONT (04:58)
[2022-10-17 05:44] LABS: Hematocrit 31.8 % (37.0-47.0); Hemoglobin 9.5 g/dl (12.0-16.0); Mean Corpuscular HGB Conc 29.9 g/dl (31.0-35.0); Mean Corpuscular Hemoglobin 30.1 pg (27.0-33.0); Mean Corpuscular Volume 100.6 fL (80.0-98.0); Mean Platelet Volume 12.1 fL (9.4-12.3); Red Blood Count 3.16 X10*6/uL (4.20-5.50); Red Cell Distribution Width 17.5 % (11.0-16.0); White Blood Count 11.2 X10*3/uL (4.8-10.8)
[2022-10-17 05:53] LABS: Platelet Count 85 X10*3/uL (160-400)
[2022-10-17 06:12] LABS: Anion Gap 10 (12-20); Blood Urea Nitrogen 28 mg/dL (9-16); Calcium 10.5 mg/dL (8.4-10.2); Carbon Dioxide 24 mmol/L (22-29); Chloride 115 mmol/L (96-108); Creatinine Clr Calc Pharmacy 75.8; Estimated Glomerular Filt Rate > 60; Glucose Random 104 mg/dL (60-115); Phosphorus 2.6 mg/dL (2.7-4.5); Potassium 4.3 mmol/L (3.3-5.1); Sodium 145 mmol/L (135-145)
[2022-10-17 07:27] VITALS: BP 110/60; PULSE 89; RESP 20; TEMP 36.1; O2SAT 96
[2022-10-17 07:39] LABS: Glucose, Whole Blood 96 mg/dL (60-115)
[2022-10-17] MEDS: Famotidine/PF 20 MG/2 ML VIAL IVPUSH (07:51)
[2022-10-17] MEDS: Zinc Oxide 20% Ointment 28.35 GM TUBE 1 APPL TOPICAL (07:52)
[2022-10-17 09:19] LABS: Folate 3.8 ng/mL (> or = 4.0); Vitamin B12 1244 pg/mL (200-900)
--- NOTE | 2022-10-17 10:33 | HO.PM.IMPN ---
Subjective Subjective Date of Service: 10/17/22 Interval History: PEG delayed til today Review of Systems Review of Systems: Yes Unobtainable due to mental status Physical Exam Vital Signs: Vital Signs: Last Vital Signs Temp 97.0 F 10/17/22 07:27 Pulse 89 10/17/22 07:27 Resp 20 10/17/22 07:27 BP 110/60 10/17/22 07:27 Pulse Ox 96 10/17/22 07:27 O2 Del Method Oxymask 10/17/22 07:27 O2 Flow Rate 4 10/17/22 07:27 FiO2 21 10/02/22 07:00 BMI result Body Mass Index 32.1 Gen: in no acute distress HEENT: sclera anicteric, moist mucus membranes Neck: supple Lungs: diminished bilaterally Heart: regular rate and rhythm, no murmurs Abd: soft, non-tender, non-distended Ext: generalized edema Skin: warm/well-perfused Neuro: alert, nonverbal, moving all extremities Psych: impaired insight Objective Data Active Medications Acetaminophen (Acetaminophen Supp 650 Mg Supp.Rect) 650 mg [place] Q6H PRN PRN Reason: Fever Last Admin: 10/07/22 01:59 Dose: 650 mg Documented By: ANTOIC Heparin Sodium (Porcine) 50 (units/ Sodium Chloride 5 ml) 0 units IVFLUSH QSHIFT [facility] Last Admin: 10/17/22 07:51 Dose: 50 unit Documented By: DOT Divalproex Sodium (Divalproex Sodium Sprinkles 125 Mg ) 1,000 mg PO BID [facility] Last Admin: 10/17/22 07:38 Dose: Not Given Documented By: DOT Non-Admin Reason: NPO Famotidine (Famotidine/Pf 20 Mg/2 Ml Vial) 20 mg IVPUSH DAILY [facility] Last Admin: 10/17/22 07:51 Dose: 20 mg Documented By: DOT Folic Acid (Folic Acid 1 Mg Tablet) 1 mg PO DAILY [facility] Last Admin: 10/17/22 07:39 Dose: Not Given Documented By: DOT Non-Admin Reason: NPO Glucose (Glucose Gel 15 Gm Gel..Gram.) 15 gm PO Q15M PRN; Protocol PRN Reason: per Hypoglycemia Standing Ord. Dextrose (D10) 250 mls @ 750 mls/hr IV Q15M PRN; Protocol PRN Reason: per Hypoglycemia Standing Ord. Cefazolin Sodium/Dextrose (Ancef) 2 gm in 50 mls @ 100 mls/hr IV PREOP ONE Stop: 10/17/22 13:40 Insulin Human Lispro (Insulin Lispro 100 Unit/Ml 3 Ml Vial) 0 unit SUBCUT [facility]; Protocol Last Admin: 10/17/22 07:37 Dose: Not Given Documented By: DOT Non-Admin Reason: NPO Levothyroxine Sodium (Levothyroxine Sodium 100 Mcg/5 Ml Vial) 50 mcg IVPUSH DAILY@0600 [facility] Last Admin: 10/17/22 05:00 Dose: Not Given Documented By: SARMAD Non-Admin Reason: NPO Mirtazapine (Mirtazapine 7.5 Mg Tablet) 7.5 mg PO BEDTIME [facility] Last Admin: 10/16/22 22:26 Dose: 7.5 mg Documented By: SARMAD Ondansetron HCl (Ondansetron Hcl 4 Mg/2 Ml Vial) 4 mg IVPUSH Q4H PRN PRN Reason: Nausea and Vomiting Last Admin: 10/05/22 14:18 Dose: 4 mg Documented By: MILTON Quetiapine Fumarate (Quetiapine Fumarate 50 Mg Tablet) 50 mg PO TID [facility] Last Admin: 10/17/22 07:39 Dose: Not Given Documented By: DOT Non-Admin Reason: NPO Zinc Oxide (Zinc Oxide 20% Ointment 28.35 Gm Tube) 1 appl TOPICAL BID [facility]; Protocol Last Admin: 10/17/22 07:52 Dose: 1 appl Documented By: DOT Labs 10/17/22 04:23 10/17/22 04:23 Labs: Laboratory Results - last 24 hr 10/16/22 10/16/22 10/16/22 11:23 16:34 20:37 MCV MCH MCHC RDW Plt Count MPV Absolute Nucleated RBC Nucleated RBC % (auto) Anion Gap Estim Creat Clear Calc Estimated GFR POC Glucose 287 H 246 H 252 H Random Glucose Calcium Phosphorus Magnesium Vitamin B12 Folate 10/17/22 10/17/22 10/17/22 04:23 04:23 07:26 MCV 100.6 H MCH 30.1 MCHC 29.9 L RDW 17.5 H Plt Count 85 L MPV 12.1 Absolute Nucleated RBC 0.000 Nucleated RBC % (auto) 0.0 Anion Gap 10 L Estim Creat Clear Calc 75.8 Estimated GFR > 60 POC Glucose 96 Random Glucose 104 Calcium 10.5 H Phosphorus 2.6 L Magnesium 2.0 Vitamin B12 1244 H Folate 3.8 L Assessment and Plan (1) Aspiration into respiratory tract: Status: Acute (2) Hypernatremia: Status: Acute Plan hospital d#19 62yo F admitted initially to ICU for pressor support for sepsis due to UTI. Transferred to floor then vomited, developed aspiration pneumonitis # aspiration pneumonitis/ recurrent aspiration - finished 10-day course of IV antibiotic on 10/09, but developed hypoxia; repeat chest x-ray 10/10 showed new infiltrate, therefore placed back on IV Zosyn 10/10-10/15 - re-evaluated by speech therapy, recommended pureed and pudding thick liquids diet - decreased by mouth intake since; patient noted to have cough and secretions - given dysphagia + recurrent aspirations and decreased PO intake, pt placed on IV PPN. discussion with pt's guardian previously by Dr Cagle resulted in plan to proceed with PEG placement today # acute hypoxic resp failure - treated 2x with ABX for aspiration pneumonia - frequent suctioning and close monitoring for aspiration with one-to-one feeding; keep head of bed elevated # hypernatremia, hypovolemic - resolved s/p D5W repletion # hypoK - repleted # hyperglycemia without DM - A1c 5.3, give correction-dose lispro # acute/chronic macrocytic anemia # folate deficiency - s/p 2u pRBCs 10/03/22 and 1u pRBCs 10/15/22 - replace folate # hx of PE - apixaban held 10/13 for PEG placement # schizoaffective disorder - continue valproate, quetiapine, mirtazapine # UTI, multiple - completed antibiotics # hypothyroidism - continue LT4 # fluid overload - likely due to hypoalbuminemia + hypotonic fluid given IV; given 1 dose HCTZ on 10/14 # multiple wounds - R posterior knee, unstageable: silver alginate - coccyx, stage 2: Zn oxide/silver alginate - B heels, unstageable: silver alginate - R posterior ankle, unstageable: Betadine paint - R hand, skin tear: Xeroform # VTE ppx: apixaban on hold # dispo: eventual return to [facility] for LTC In my clinical judgment, the patient requires continued inpatient hospitalization for the following reasons: PEG tube Time Spent With Patient Time: Total time managing care of this patient today _35___ minutes. Quality Stroke Does the patient have a stroke diagnosis?: No VTE Prior VTE?: No VTE Risk Level:: Medical - moderate - high VTE Device Contraindication: N/A - Device Ordered VTE Drug Contraindication: N/A - Med Ordered
--- NOTE | 2022-10-17 10:56 | MHC.SPEECHCO ---
Pt anticipating PEG placement today. [employer] treatment deferred. Will re-assess on a later date once TFs are initiated.
--- NOTE | 2022-10-17 11:02 | PM.PNNEP ---
Subjective Subjective Date of Service: 10/18/22 Interval history: PEG delayed til today Physical Exam Vital Signs: Vital Signs: Last Vital Signs Temp 97.0 F 10/17/22 07:27 Pulse 89 10/17/22 07:27 Resp 20 10/17/22 07:27 BP 110/60 10/17/22 07:27 Pulse Ox 96 10/17/22 07:27 O2 Del Method Oxymask 10/17/22 07:27 O2 Flow Rate 4 10/17/22 07:27 FiO2 21 10/02/22 07:00 BMI result Body Mass Index 32.1 Neck: Neck: Yes supple Resp: Auscultation: diminished lung sounds Cardio: Rate: regular rate GI: Palpation (GI): Soft to palpation Skin: General skin exam: no rashes or lesions noted Neuro: General: moves all extremities Objective Data Labs 10/17/22 04:23 10/17/22 04:23 Labs: Laboratory Results - last 24 hr 10/16/22 10/16/22 10/16/22 11:23 16:34 20:37 WBC RBC Hgb Hct MCV MCH MCHC RDW Plt Count MPV Absolute Nucleated RBC Nucleated RBC % (auto) Sodium Potassium Chloride Carbon Dioxide Anion Gap BUN Creatinine Estim Creat Clear Calc Estimated GFR POC Glucose 287 H 246 H 252 H Random Glucose Calcium Phosphorus Magnesium Vitamin B12 Folate 10/17/22 10/17/22 10/17/22 04:23 04:23 07:26 WBC 11.2 H RBC 3.16 L Hgb 9.5 L Hct 31.8 L MCV 100.6 H MCH 30.1 MCHC 29.9 L RDW 17.5 H Plt Count 85 L MPV 12.1 Absolute Nucleated RBC 0.000 Nucleated RBC % (auto) 0.0 Sodium 145 Potassium 4.3 Chloride 115 H Carbon Dioxide 24 Anion Gap 10 L BUN 28 H Creatinine 0.92 Estim Creat Clear Calc 75.8 Estimated GFR > 60 POC Glucose 96 Random Glucose 104 Calcium 10.5 H Phosphorus 2.6 L Magnesium 2.0 Vitamin B12 1244 H Folate 3.8 L Microbiology Microbiology Results: Microbiology 10/01/22 18:06 Blood - Venous Blood Culture - Final No growth after 5 days. 10/01/22 18:06 Blood - Venous Blood Culture - Final No growth after 5 days. 09/29/22 23:00 Heel, Left Gram Stain - Final 09/29/22 23:00 Heel, Left Routine Culture - Final Proteus mirabilis Methicillin Res Staph Aureus 09/29/22 14:08 Blood - Venous Blood Culture - Final No growth after 5 days. 09/29/22 14:08 Blood - Venous Blood Culture - Final Coag negative Staphylococcus Peptostreptococcus species 09/29/22 23:55 Sputum - Suctioned Gram Stain - Final 09/29/22 23:55 Sputum - Suctioned Sputum Culture - Final 09/29/22 Unknown Urine Catheterized - Randall Catheter Urine Culture - Final Procedures Date of Service Date of Service: 10/17/22 Assessment & Plan Assessment and plan (1) Hypernatremia: Status: Acute Assessment and Plan: Hypernatremia due to free water deficit Serum sodium is at 145 Keep LR If NA increases, switch to D5W and keep I > O Needs to monitor electrolytes/K Anemia Concur with other medical management Shall closely follow up Time Spent With Patient Time: Total time managing care of this patient today ____ minutes. Progress Note: Quality Stroke Does the patient have a stroke diagnosis?: No
[2022-10-17 11:10] LABS: Glucose, Whole Blood 78 mg/dL (60-115)
[2022-10-17 11:16] VITALS: BP 109/70; PULSE 96; RESP 16; TEMP 36.8; O2SAT 94
[2022-10-17] MEDS: Lactated Ringers 1,000 ML 100 ML IVCONT (11:16)
--- NOTE | 2022-10-17 12:11 | MHC.CLN ---
F/U PEG PLACEMENT DELAYED AND PLANNED FOR TODAY REVIEWED LABS PT IS CURRENTLY NPO IF TF NEEDED; RECOMMEND PROMOTE AT MAX GOAL RATE 70ML/HR WITH 240ML FREE WATER FLUSHES Q 6HRS TO PROVIDE 1680KCLAS (23KCALS/KG), 105G PROTEIN (1.4G/KG), 2369ML TOTAL WATER FROM FORMULA AND FLUSHES (32ML/KG) START FORMULA AT 20ML/HR AND INCREASE BY 10ML Q 4 HRS UNTIL MAX GOAL IS ACHIEVED MONITOR TOLERANCE, RESIDUALS AND LYTES FOLLOWING WITH TEAM
[2022-10-17 12:23] LABS: Glucose, Whole Blood 67 mg/dL (60-115)
[2022-10-17 12:28] VITALS: BP 129/67; PULSE 91; RESP 22; TEMP 36.3; O2SAT 95
--- NOTE | 2022-10-17 12:36 | PC.NURSE ---
pt repositioned swelling and blister right and left arm red swollen bandaid on buttuck right ulcer noted reddened swelling to b/l arms legs weeping and b/l legs bandage noted . booties on from floor. telephone consent for guardian obtained mrsa precaution, pt yuliya out when touch with garbled speech. poc on arrival [id number] dr [place] aware order [id number]
--- NOTE | 2022-10-17 12:53 | P.CONAN_ITS ---
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) Pulmonary embolism (Acute) Delirium due to another medical condition, acute, hyperactive (Acute) Pressure sore on ankle (Acute) Aspiration into respiratory tract (Acute) Atelectasis of left lung (Acute) Sepsis (Acute) UTI (urinary tract infection) (Acute) Pleural effusion on left (Acute) COVID (Acute) Past Medical History Medical History (Updated 10/07/22 @ 10:47 by Guille Willett DO) Chronic kidney disease, stage 3 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 Hypertension Intellectual disability Pressure sore on ankle Pulmonary embolism Schizoaffective disorder Social History Social History Household Members: Unknown / Unable to assess Housing: Unknown / Unable to assess Unable to assess alcohol history related to: Unable to respond Patient Tobacco Use Status: Tobacco use Unknown Use of substances other than those prescribed or required for medical reasons: Unknown Currently Displaying Signs/Symptoms of Drug Intoxication Withdrawal: No Are you DNR?: No Advance Directives: No Advance Directives Information Provided: No Recently lost weight without trying: Unsure Patient : No service: No Current occupational status: disabled Meds Allergies Allergy/AdvReac Type Severity Reaction Status Date / Time Unable to Assess Allergy Verified 01/02/22 11:20 Active Medications: Current Medications Acetaminophen (Acetaminophen Supp 650 Mg Supp.Rect) 650 mg WA Q6H PRN PRN Reason: Fever Last Admin: 10/07/22 01:59 Dose: 650 mg Heparin Sodium (Porcine) 50 (units/ Sodium Chloride 5 ml) 0 units IVFLUSH QSHIFT [facility] Last Admin: 10/17/22 07:51 Dose: 50 unit Divalproex Sodium (Divalproex Sodium Sprinkles 125 Mg Filipe.) 1,000 mg PO BID [facility] Last Admin: 10/17/22 07:38 Dose: Not Given Famotidine (Famotidine/Pf 20 Mg/2 Ml Vial) 20 mg IVPUSH DAILY [facility] Last Admin: 10/17/22 07:51 Dose: 20 mg Folic Acid (Folic Acid 1 Mg Tablet) 1 mg PO DAILY [facility] Last Admin: 10/17/22 07:39 Dose: Not Given Glucose (Glucose Gel 15 Gm Gel..Gram.) 15 gm PO Q15M PRN; Protocol PRN Reason: per Hypoglycemia Standing Ord. Dextrose (D10) 250 mls @ 750 mls/hr IV Q15M PRN; Protocol PRN Reason: per Hypoglycemia Standing Ord. Cefazolin Sodium/Dextrose (Ancef) 2 gm in 50 mls @ 100 mls/hr IV PREOP ONE Stop: 10/17/22 13:40 Lactated Ringer's (Lr) 1,000 mls @ 100 mls/hr IVCONT .Q10H [facility] Last Admin: 10/17/22 11:16 Dose: 100 mls/hr Insulin Human Lispro (Insulin Lispro 100 Unit/Ml 3 Ml Vial) 0 unit SUBCUT QIDACHS [facility]; Protocol Last Admin: 10/17/22 11:17 Dose: Not Given Levothyroxine Sodium (Levothyroxine Sodium 100 Mcg/5 Ml Vial) 50 mcg IVPUSH DAILY@0600 [facility] Last Admin: 10/17/22 05:00 Dose: Not Given Mirtazapine (Mirtazapine 7.5 Mg Tablet) 7.5 mg PO BEDTIME [facility] Last Admin: 10/16/22 22:26 Dose: 7.5 mg Ondansetron HCl (Ondansetron Hcl 4 Mg/2 Ml Vial) 4 mg IVPUSH Q4H PRN PRN Reason: Nausea and Vomiting Last Admin: 10/05/22 14:18 Dose: 4 mg Quetiapine Fumarate (Quetiapine Fumarate 50 Mg Tablet) 50 mg PO TID [facility] Last Admin: 10/17/22 07:39 Dose: Not Given Zinc Oxide (Zinc Oxide 20% Ointment 28.35 Gm Tube) 1 appl TOPICAL BID [facility]; Protocol Last Admin: 10/17/22 07:52 Dose: 1 appl Home Medications Medication Instructions Recorded Confirmed Last Taken Type acetaminophen 500 mg tablet 1,000 mg PO TID PRN Pain 01/02/22 09/29/22 Unknown History apixaban 2.5 mg tablet (Eliquis) 2.5 mg PO BID 01/02/22 09/29/22 Unknown History atorvastatin 10 mg tablet 10 mg PO BEDTIME 01/02/22 09/29/22 Unknown History divalproex 125 mg capsule,delayed 1,000 mg PO BID 01/02/22 09/29/22 Unknown History release sprinkle lactulose 10 gram/15 mL oral 20 g PO BID 01/02/22 09/29/22 Unknown History solution (Enulose) levothyroxine 100 mcg capsule 100 mcg PO DAILY 01/02/22 09/29/22 Unknown History mirtazapine 7.5 mg tablet 7.5 mg PO BEDTIME 01/02/22 09/29/22 Unknown History quetiapine 50 mg tablet 50 mg PO TID 01/02/22 09/29/22 Unknown History trazodone 100 mg tablet 200 mg PO BID 01/02/22 09/29/22 Unknown History ascorbic acid (vitamin C) 1,000 mg 1,000 mg PO BID 09/29/22 09/29/22 Unknown History tablet (Vitamin C) ascorbic acid (vitamin C) 250 mg 250 mg PO BID 09/29/22 09/29/22 Unknown History tablet (Vitamin C) bisacodyl 10 mg rectal suppository 10 mg WA DAILY PRN Constipation 09/29/22 09/29/22 Unknown History tramadol 50 mg tablet 50 mg PO BID PRN Pain 09/29/22 09/29/22 Unknown History Exam Exam Date and Time: October 17, 2022 1253 Height,Weight and Vital Signs: Height 5 ft 8 in Weight 96 kg Last Vital Signs Temp 97.3 F 10/17/22 12:28 Pulse 91 10/17/22 12:28 Resp 22 H 10/17/22 12:28 BP 129/67 10/17/22 12:28 Pulse Ox 95 10/17/22 12:28 O2 Del Method Nasal Cannula 10/17/22 12:28 O2 Flow Rate 3 10/17/22 12:28 FiO2 21 10/02/22 07:00 Pertinent Lab Results Pertinent Lab Results: Laboratory Tests 09/29/22 09/29/22 09/29/22 14:05 14:06 14:08 WBC 21.5 H RBC 3.13 L Hgb 8.7 L Hct 31.9 L MCV 101.9 H MCH 27.8 MCHC 27.3 L RDW 19.3 H Plt Count 568 H D MPV 10.1 Immature Gran % (Auto) 4.1 H Neut % (Auto) 74.1 H Lymph % (Auto) 9.8 L [place] % (Auto) 11.7 H Eos % (Auto) 0.0 Baso % (Auto) 0.3 Lymph # (Auto) 2.1 [place] # (Auto) 2.5 H Eos # (Auto) 0.0 Baso # (Auto) 0.1 Abs Immat Gran (auto) 0.89 H Absolute Neuts (auto) 15.9 H Absolute Nucleated RBC 0.210 H Nucleated RBC % (auto) 1.0 H Neutrophils % (Manual) Band Neutrophils % Lymphocytes % (Manual) Atypical Lymphs % (Man) Monocytes % (Manual) Eosinophils % (Manual) Metamyelocytes % Myelocytes % Abs Neuts (Manual) Lymphocytes # (Manual) Atyp Lymphs # (Manual) Monocytes # (Manual) Eosinophils # (Manual) Metamyelocytes # Myelocytes # Nucleated RBCs Toxic Granulation Dohle Bodies WBC Morphology Comment Platelet Estimate Large Platelets Plt Morphology Comment RBC Morphology Polychromasia Hypochromasia Basophilic Stippling Microcytosis Macrocytosis Spherocytes Target Cells Stomatocytes [place] Cells Acanthocytes (Spur) Smear Tech's Comments VERIFIED Smear Path Review PT INR O2 Saturation ABG pH at Pt Temp ABG pCO2 at Pt Temp ABG pO2 at Pt Temp ABG HCO3 ABG Base Excess (Actual) VBG pH VBG pCO2 VBG pO2 VBG HCO3 VBG O2 Saturation VBG Base Excess Sodium Potassium Chloride Carbon Dioxide Anion Gap BUN Creatinine Estim Creat Clear Calc Estimated GFR POC Glucose Random Glucose Fasting Glucose Estimat Average Glucose Hemoglobin A1c % Lactic Acid 4.0 H* Lactic Acid F/U @ 2Hr Lactic Acid F/U @ 4Hr Calcium Phosphorus Magnesium Total Bilirubin AST ALT Alkaline Phosphatase Ammonia 30 Troponin I High Sens C-Reactive Protein Total Protein Albumin Triglycerides Vitamin B12 Folate TSH Urine Color Urine Appearance Urine pH Ur Specific [place] Urine Protein Urine Glucose (UA) Urine Ketones Urine Blood Urine Nitrite Ur Leukocyte Esterase Urine RBC Urine WBC Ur Squamous Epith Cells Urine Bacteria Hyaline Casts Urine Osmolality Ur Random Sodium Stool Occult Blood Vancomycin Trough Random Vancomycin COVID-19 (PADMA) COVID-19 Clin Com Blood Type Antibody Screen Crossmatch 09/29/22 09/29/22 09/29/22 14:08 14:08 14:20 WBC RBC Hgb Hct MCV MCH MCHC RDW Plt Count MPV Immature Gran % (Auto) Neut % (Auto) Lymph % (Auto) [place] % (Auto) Eos % (Auto) Baso % (Auto) Lymph # (Auto) [place] # (Auto) Eos # (Auto) Baso # (Auto) Abs Immat Gran (auto) Absolute Neuts (auto) Absolute Nucleated RBC Nucleated RBC % (auto) Neutrophils % (Manual) Band Neutrophils % Lymphocytes % (Manual) Atypical Lymphs % (Man) Monocytes % (Manual) Eosinophils % (Manual) Metamyelocytes % Myelocytes % Abs Neuts (Manual) Lymphocytes # (Manual) Atyp Lymphs # (Manual) Monocytes # (Manual) Eosinophils # (Manual) Metamyelocytes # Myelocytes # Nucleated RBCs Toxic Granulation Dohle Bodies WBC Morphology Comment Platelet Estimate Large Platelets Plt Morphology Comment RBC Morphology Polychromasia Hypochromasia Basophilic Stippling Microcytosis Macrocytosis Spherocytes Target Cells Stomatocytes [place] Cells Acanthocytes (Spur) Smear Tech's Comments Smear Path Review PT 17.0 H INR 1.5 H O2 Saturation ABG pH at Pt Temp ABG pCO2 at Pt Temp ABG pO2 at Pt Temp ABG HCO3 ABG Base Excess (Actual) VBG pH VBG pCO2 VBG pO2 VBG HCO3 VBG O2 Saturation VBG Base Excess Sodium 146 H Potassium 4.4 Chloride 106 Carbon Dioxide 28 Anion Gap 16 BUN 23 H Creatinine 1.20 Estim Creat Clear Calc 54.7 Estimated GFR 45 POC Glucose Random Glucose 95 Fasting Glucose Estimat Average Glucose Hemoglobin A1c % Lactic Acid Lactic Acid F/U @ 2Hr Lactic Acid F/U @ 4Hr Calcium 9.8 Phosphorus Magnesium Total Bilirubin 0.3 AST 10 ALT < 5 Alkaline Phosphatase 80 Ammonia Troponin I High Sens C-Reactive Protein Total Protein 6.1 L Albumin 2.4 L Triglycerides Vitamin B12 Folate TSH Urine Color Yellow Urine Appearance Turbid Urine pH 6.5 Ur Specific [place] 1.015 Urine Protein 100 (2+) H Urine Glucose (UA) Negative Urine Ketones Negative Urine Blood Moderate (2+) H Urine Nitrite Negative Ur Leukocyte Esterase Large (3+) H Urine RBC >20 H Urine WBC >50 H Ur Squamous Epith Cells 0-2 Urine Bacteria 4+ Hyaline Casts 3-5 Urine Osmolality Ur Random Sodium Stool Occult Blood Vancomycin Trough Random Vancomycin COVID-19 (PADMA) COVID-19 Clin Com Blood Type Antibody Screen Crossmatch 09/29/22 09/29/22 09/29/22 14:35 16:37 16:37 WBC RBC Hgb Hct MCV MCH MCHC RDW Plt Count MPV Immature Gran % (Auto) Neut % (Auto) Lymph % (Auto) [place] % (Auto) Eos % (Auto) Baso % (Auto) Lymph # (Auto) [place] # (Auto) Eos # (Auto) Baso # (Auto) Abs Immat Gran (auto) Absolute Neuts (auto) Absolute Nucleated RBC Nucleated RBC % (auto) Neutrophils % (Manual) Band Neutrophils % Lymphocytes % (Manual) Atypical Lymphs % (Man) Monocytes % (Manual) Eosinophils % (Manual) Metamyelocytes % Myelocytes % Abs Neuts (Manual) Lymphocytes # (Manual) Atyp Lymphs # (Manual) Monocytes # (Manual) Eosinophils # (Manual) Metamyelocytes # Myelocytes # Nucleated RBCs Toxic Granulation Dohle Bodies WBC Morphology Comment Platelet Estimate Large Platelets Plt Morphology Comment RBC Morphology Polychromasia Hypochromasia Basophilic Stippling Microcytosis Macrocytosis Spherocytes Target Cells Stomatocytes [place] Cells Acanthocytes (Spur) Smear Tech's Comments Smear Path Review PT INR O2 Saturation < 30.0 ABG pH at Pt Temp 7.33 L ABG pCO2 at Pt Temp 54 H ABG pO2 at Pt Temp 27 L* ABG HCO3 29 H ABG Base Excess (Actual) 2.6 VBG pH VBG pCO2 VBG pO2 VBG HCO3 VBG O2 Saturation VBG Base Excess Sodium Potassium Chloride Carbon Dioxide Anion Gap BUN Creatinine Estim Creat Clear Calc Estimated GFR POC Glucose Random Glucose Fasting Glucose Estimat Average Glucose Hemoglobin A1c % Lactic Acid Lactic Acid F/U @ 2Hr 2.7 H* Lactic Acid F/U @ 4Hr Calcium Phosphorus Magnesium Total Bilirubin AST ALT Alkaline Phosphatase Ammonia Troponin I High Sens C-Reactive Protein Total Protein Albumin Triglycerides Vitamin B12 Folate TSH Urine Color Urine Appearance Urine pH Ur Specific [place] Urine Protein Urine Glucose (UA) Urine Ketones Urine Blood Urine Nitrite Ur Leukocyte Esterase Urine RBC Urine WBC Ur Squamous Epith Cells Urine Bacteria Hyaline Casts Urine Osmolality Ur Random Sodium Stool Occult Blood Vancomycin Trough Random Vancomycin COVID-19 (PADMA) Negative COVID-19 Clin Com See Note Blood Type Antibody Screen Crossmatch 09/29/22 09/29/2223 18:56 23:33 23:33 WBC 32.1 H* RBC 2.74 L Hgb 7.7 L Hct 27.8 L MCV 101.5 H MCH 28.1 MCHC 27.7 L RDW 18.8 H Plt Count 630 H MPV 9.9 Immature Gran % (Auto) Cancelled Neut % (Auto) Cancelled Lymph % (Auto) Cancelled [place] % (Auto) Cancelled Eos % (Auto) Cancelled Baso % (Auto) Cancelled Lymph # (Auto) Cancelled [place] # (Auto) Cancelled Eos # (Auto) Cancelled Baso # (Auto) Cancelled Abs Immat Gran (auto) Cancelled Absolute Neuts (auto) Cancelled Absolute Nucleated RBC 0.360 H Nucleated RBC % (auto) 1.1 H Neutrophils % (Manual) 62 Band Neutrophils % 11 H Lymphocytes % (Manual) 11 L Atypical Lymphs % (Man) Monocytes % (Manual) 8 Eosinophils % (Manual) Metamyelocytes % 6 Myelocytes % 2 Abs Neuts (Manual) 23.4 H Lymphocytes # (Manual) 3.5 Atyp Lymphs # (Manual) Monocytes # (Manual) 2.6 H Eosinophils # (Manual) Metamyelocytes # 1.9 Myelocytes # 0.6 Nucleated RBCs Toxic Granulation PRESENT Dohle Bodies PRESENT WBC Morphology Comment DYSMORPHIC Platelet Estimate INCREASED Large Platelets PRESENT Plt Morphology Comment NOTED RBC Morphology NOTED Polychromasia 2+ (3-5) Hypochromasia Basophilic Stippling 1+ (0-2) Microcytosis 1+ (5-14) Macrocytosis Spherocytes Target Cells Stomatocytes [place] Cells Acanthocytes (Spur) 2+ (3-5) Smear Tech's Comments Smear Path Review SEE NOTE PT INR O2 Saturation ABG pH at Pt Temp ABG pCO2 at Pt Temp ABG pO2 at Pt Temp ABG HCO3 ABG Base Excess (Actual) VBG pH VBG pCO2 VBG pO2 VBG HCO3 VBG O2 Saturation VBG Base Excess Sodium Potassium Chloride Carbon Dioxide Anion Gap BUN Creatinine Estim Creat Clear Calc Estimated GFR POC Glucose Random Glucose Fasting Glucose Estimat Average Glucose Hemoglobin A1c % Lactic Acid 0.7 Lactic Acid F/U @ 2Hr Lactic Acid F/U @ 4Hr 2.5 H* Calcium Phosphorus Magnesium Total Bilirubin AST ALT Alkaline Phosphatase Ammonia Troponin I High Sens C-Reactive Protein Total Protein Albumin Triglycerides Vitamin B12 Folate TSH Urine Color Urine Appearance Urine pH Ur Specific [place] Urine Protein Urine Glucose (UA) Urine Ketones Urine Blood Urine Nitrite Ur Leukocyte Esterase Urine RBC Urine WBC Ur Squamous Epith Cells Urine Bacteria Hyaline Casts Urine Osmolality Ur Random Sodium Stool Occult Blood Vancomycin Trough Random Vancomycin COVID-19 (PADMA) COVID-19 Clin Com Blood Type Antibody Screen Crossmatch 09/29/22 09/29/22 09/30/22 23:33 23:35 05:15 WBC 29.3 H RBC 2.62 L Hgb 7.5 L Hct 26.6 L MCV 101.5 H MCH 28.6 MCHC 28.2 L RDW 18.8 H Plt Count 604 H MPV 9.8 Immature Gran % (Auto) Cancelled Neut % (Auto) Cancelled Lymph % (Auto) Cancelled [place] % (Auto) Cancelled Eos % (Auto) Cancelled Baso % (Auto) Cancelled Lymph # (Auto) Cancelled [place] # (Auto) Cancelled Eos # (Auto) Cancelled Baso # (Auto) Cancelled Abs Immat Gran (auto) Cancelled Absolute Neuts (auto) Cancelled Absolute Nucleated RBC 0.500 H Nucleated RBC % (auto) 1.7 H Neutrophils % (Manual) 66 Band Neutrophils % 8 H Lymphocytes % (Manual) 10 L Atypical Lymphs % (Man) Monocytes % (Manual) 12 H Eosinophils % (Manual) Metamyelocytes % 2 Myelocytes % 2 Abs Neuts (Manual) 21.7 H Lymphocytes # (Manual) 2.9 Atyp Lymphs # (Manual) Monocytes # (Manual) 3.5 H Eosinophils # (Manual) Metamyelocytes # 0.6 Myelocytes # 0.6 Nucleated RBCs 1 H Toxic Granulation PRESENT Dohle Bodies WBC Morphology Comment Platelet Estimate INCREASED Large Platelets PRESENT Plt Morphology Comment NOTE RBC Morphology NOTED Polychromasia 2+ (3-5) Hypochromasia Basophilic Stippling Microcytosis 1+ (5-14) Macrocytosis Spherocytes Target Cells Stomatocytes 1+ (5-14) [place] Cells Acanthocytes (Spur) Smear Tech's Comments Smear Path Review PT INR O2 Saturation ABG pH at Pt Temp ABG pCO2 at Pt Temp ABG pO2 at Pt Temp ABG HCO3 ABG Base Excess (Actual) VBG pH 7.26 L VBG pCO2 55 VBG pO2 58 VBG HCO3 25 VBG O2 Saturation 79.0 VBG Base Excess -2.0 Sodium 142 Potassium 4.1 Chloride 110 H Carbon Dioxide 25 Anion Gap 11 L BUN 20 H Creatinine 0.87 Estim Creat Clear Calc 75.5 Estimated GFR > 60 POC Glucose Random Glucose Fasting Glucose 155 H Estimat Average Glucose Hemoglobin A1c % Lactic Acid Lactic Acid F/U @ 2Hr Lactic Acid F/U @ 4Hr Calcium 9.0 D Phosphorus Magnesium Total Bilirubin AST ALT Alkaline Phosphatase Ammonia Troponin I High Sens C-Reactive Protein Total Protein Albumin Triglycerides Vitamin B12 Folate TSH Urine Color Urine Appearance Urine pH Ur Specific [place] Urine Protein Urine Glucose (UA) Urine Ketones Urine Blood Urine Nitrite Ur Leukocyte Esterase Urine RBC Urine WBC Ur Squamous Epith Cells Urine Bacteria Hyaline Casts Urine Osmolality Ur Random Sodium Stool Occult Blood Vancomycin Trough Random Vancomycin COVID-19 (PADMA) COVID-19 Clin Com Blood Type Antibody Screen Crossmatch 09/30/22 09/30/22 10/01/22 05:15 05:22 04:50 WBC RBC Hgb Hct MCV MCH MCHC RDW Plt Count MPV Immature Gran % (Auto) Neut % (Auto) Lymph % (Auto) [place] % (Auto) Eos % (Auto) Baso % (Auto) Lymph # (Auto) [place] # (Auto) Eos # (Auto) Baso # (Auto) Abs Immat Gran (auto) Absolute Neuts (auto) Absolute Nucleated RBC Nucleated RBC % (auto) Neutrophils % (Manual) Band Neutrophils % Lymphocytes % (Manual) Atypical Lymphs % (Man) Monocytes % (Manual) Eosinophils % (Manual) Metamyelocytes % Myelocytes % Abs Neuts (Manual) Lymphocytes # (Manual) Atyp Lymphs # (Manual) Monocytes # (Manual) Eosinophils # (Manual) Metamyelocytes # Myelocytes # Nucleated RBCs Toxic Granulation Dohle Bodies WBC Morphology Comment Platelet Estimate Large Platelets Plt Morphology Comment RBC Morphology Polychromasia Hypochromasia Basophilic Stippling Microcytosis Macrocytosis Spherocytes Target Cells Stomatocytes [place] Cells Acanthocytes (Spur) Smear Tech's Comments Smear Path Review PT INR O2 Saturation ABG pH at Pt Temp ABG pCO2 at Pt Temp ABG pO2 at Pt Temp ABG HCO3 ABG Base Excess (Actual) VBG pH 7.33 VBG pCO2 43 VBG pO2 44 VBG HCO3 23 VBG O2 Saturation 69.0 VBG Base Excess -2.2 Sodium 142 Potassium 3.9 Chloride 109 H Carbon Dioxide 25 Anion Gap 12 BUN 18 H Creatinine 0.85 Cancelled Estim Creat Clear Calc 80.3 Cancelled Estimated GFR > 60 Cancelled POC Glucose Random Glucose 158 H Fasting Glucose Estimat Average Glucose Hemoglobin A1c % Lactic Acid Lactic Acid F/U @ 2Hr Lactic Acid F/U @ 4Hr Calcium 9.1 Phosphorus Magnesium Total Bilirubin 0.8 AST 14 ALT 5 Alkaline Phosphatase 77 Ammonia Troponin I High Sens C-Reactive Protein 28.36 H Total Protein 5.7 L Albumin 2.9 L Triglycerides Vitamin B12 Folate TSH Urine Color Urine Appearance Urine pH Ur Specific [place] Urine Protein Urine Glucose (UA) Urine Ketones Urine Blood Urine Nitrite Ur Leukocyte Esterase Urine RBC Urine WBC Ur Squamous Epith Cells Urine Bacteria Hyaline Casts Urine Osmolality Ur Random Sodium Stool Occult Blood Vancomycin Trough Random Vancomycin COVID-19 (PADMA) COVID-19 Clin Com Blood Type Antibody Screen Crossmatch 10/01/22 10/01/22 10/01/22 04:50 04:50 05:02 WBC 31.5 H* RBC 2.82 L Hgb 8.0 L Hct 27.7 L MCV 98.2 H MCH 28.4 MCHC 28.9 L RDW 18.6 H Plt Count 621 H MPV 9.8 Immature Gran % (Auto) Neut % (Auto) Lymph % (Auto) [place] % (Auto) Eos % (Auto) Baso % (Auto) Lymph # (Auto) [place] # (Auto) Eos # (Auto) Baso # (Auto) Abs Immat Gran (auto) Absolute Neuts (auto) Absolute Nucleated RBC 0.780 H Nucleated RBC % (auto) 2.5 H Neutrophils % (Manual) 76 H Band Neutrophils % 6 H Lymphocytes % (Manual) 10 L Atypical Lymphs % (Man) 1 Monocytes % (Manual) 5 Eosinophils % (Manual) Metamyelocytes % 2 Myelocytes % Abs Neuts (Manual) 25.8 H Lymphocytes # (Manual) 3.2 Atyp Lymphs # (Manual) 0.3 Monocytes # (Manual) 1.6 H Eosinophils # (Manual) Metamyelocytes # 0.6 Myelocytes # Nucleated RBCs 2 H Toxic Granulation Dohle Bodies WBC Morphology Comment Platelet Estimate INCREASED Large Platelets Plt Morphology Comment NORMAL RBC Morphology NOTED Polychromasia 2+ (3-5) Hypochromasia 1+ (5-14) Basophilic Stippling Microcytosis Macrocytosis Spherocytes Target Cells Stomatocytes [place] Cells Acanthocytes (Spur) Smear Tech's Comments Smear Path Review PT INR O2 Saturation ABG pH at Pt Temp ABG pCO2 at Pt Temp ABG pO2 at Pt Temp ABG HCO3 ABG Base Excess (Actual) VBG pH 7.35 VBG pCO2 38 VBG pO2 47 VBG HCO3 21 L VBG O2 Saturation 75.0 VBG Base Excess -3.4 Sodium 137 Potassium 4.1 Chloride 108 Carbon Dioxide 23 Anion Gap 10 L BUN 12 Creatinine 0.83 Estim Creat Clear Calc 82.3 Estimated GFR > 60 POC Glucose Random Glucose 121 H Fasting Glucose Estimat Average Glucose Hemoglobin A1c % Lactic Acid Lactic Acid F/U @ 2Hr Lactic Acid F/U @ 4Hr Calcium 8.6 Phosphorus 1.8 L Magnesium Total Bilirubin 0.5 AST 33 H ALT 8 Alkaline Phosphatase 164 H Ammonia Troponin I High Sens C-Reactive Protein Total Protein 5.1 L Albumin 2.3 L Triglycerides Vitamin B12 Folate TSH Urine Color Urine Appearance Urine pH Ur Specific [place] Urine Protein Urine Glucose (UA) Urine Ketones Urine Blood Urine Nitrite Ur Leukocyte Esterase Urine RBC Urine WBC Ur Squamous Epith Cells Urine Bacteria Hyaline Casts Urine Osmolality Ur Random Sodium Stool Occult Blood Vancomycin Trough Random Vancomycin COVID-19 (PADMA) COVID-19 Clin Com Blood Type Antibody Screen Crossmatch 10/01/22 10/01/22 10/02/22 07:01 19:05 04:20 WBC RBC Hgb Hct MCV MCH MCHC RDW Plt Count MPV Immature Gran % (Auto) Neut % (Auto) Lymph % (Auto) [place] % (Auto) Eos % (Auto) Baso % (Auto) Lymph # (Auto) [place] # (Auto) Eos # (Auto) Baso # (Auto) Abs Immat Gran (auto) Absolute Neuts (auto) Absolute Nucleated RBC Nucleated RBC % (auto) Neutrophils % (Manual) Band Neutrophils % Lymphocytes % (Manual) Atypical Lymphs % (Man) Monocytes % (Manual) Eosinophils % (Manual) Metamyelocytes % Myelocytes % Abs Neuts (Manual) Lymphocytes # (Manual) Atyp Lymphs # (Manual) Monocytes # (Manual) Eosinophils # (Manual) Metamyelocytes # Myelocytes # Nucleated RBCs Toxic Granulation Dohle Bodies WBC Morphology Comment Platelet Estimate Large Platelets Plt Morphology Comment RBC Morphology Polychromasia Hypochromasia Basophilic Stippling Microcytosis Macrocytosis Spherocytes Target Cells Stomatocytes [place] Cells Acanthocytes (Spur) Smear Tech's Comments Smear Path Review PT INR O2 Saturation ABG pH at Pt Temp ABG pCO2 at Pt Temp ABG pO2 at Pt Temp ABG HCO3 ABG Base Excess (Actual) VBG pH VBG pCO2 VBG pO2 VBG HCO3 VBG O2 Saturation VBG Base Excess Sodium Potassium Chloride Carbon Dioxide Anion Gap BUN Creatinine Cancelled Estim Creat Clear Calc Cancelled Estimated GFR Cancelled POC Glucose Random Glucose Fasting Glucose Estimat Average Glucose Hemoglobin A1c % Lactic Acid Lactic Acid F/U @ 2Hr Lactic Acid F/U @ 4Hr Calcium Phosphorus Magnesium Total Bilirubin AST ALT Alkaline Phosphatase Ammonia Troponin I High Sens C-Reactive Protein Total Protein Albumin Triglycerides Vitamin B12 Folate TSH Urine Color Urine Appearance Urine pH Ur Specific [place] Urine Protein Urine Glucose (UA) Urine Ketones Urine Blood Urine Nitrite Ur Leukocyte Esterase Urine RBC Urine WBC Ur Squamous Epith Cells Urine Bacteria Hyaline Casts Urine Osmolality Ur Random Sodium Stool Occult Blood Vancomycin Trough 28.2 H* Random Vancomycin 23.6 H COVID-19 (PADMA) COVID-19 Clin Com Blood Type Antibody Screen Crossmatch 10/02/22 10/02/22 10/02/22 04:20 04:20 04:20 WBC 20.3 H RBC 2.59 L Hgb 7.3 L Hct 24.7 L MCV 95.4 MCH 28.2 MCHC 29.6 L RDW 18.9 H Plt Count 384 D MPV 9.2 L Immature Gran % (Auto) Cancelled Neut % (Auto) Cancelled Lymph % (Auto) Cancelled [place] % (Auto) Cancelled Eos % (Auto) Cancelled Baso % (Auto) Cancelled Lymph # (Auto) Cancelled [place] # (Auto) Cancelled Eos # (Auto) Cancelled Baso # (Auto) Cancelled Abs Immat Gran (auto) Cancelled Absolute Neuts (auto) Cancelled Absolute Nucleated RBC 0.160 H Nucleated RBC % (auto) 0.8 H Neutrophils % (Manual) 74 H Band Neutrophils % 2 L Lymphocytes % (Manual) 19 L Atypical Lymphs % (Man) Monocytes % (Manual) 4 Eosinophils % (Manual) Metamyelocytes % Myelocytes % 1 Abs Neuts (Manual) 15.4 H Lymphocytes # (Manual) 3.9 Atyp Lymphs # (Manual) Monocytes # (Manual) 0.8 Eosinophils # (Manual) Metamyelocytes # Myelocytes # 0.2 Nucleated RBCs 1 H Toxic Granulation Dohle Bodies WBC Morphology Comment Platelet Estimate NORMAL Large Platelets Plt Morphology Comment NORMAL RBC Morphology NOTED Polychromasia 1+ (0-2) Hypochromasia 1+ (5-14) Basophilic Stippling Microcytosis Macrocytosis Spherocytes Target Cells Stomatocytes [place] Cells Acanthocytes (Spur) Smear Tech's Comments Smear Path Review PT INR O2 Saturation ABG pH at Pt Temp ABG pCO2 at Pt Temp ABG pO2 at Pt Temp ABG HCO3 ABG Base Excess (Actual) VBG pH VBG pCO2 VBG pO2 VBG HCO3 VBG O2 Saturation VBG Base Excess Sodium 144 Potassium 3.7 Chloride 114 H Carbon Dioxide 24 Anion Gap 10 L BUN 9 Creatinine 0.78 Estim Creat Clear Calc 89.2 Estimated GFR > 60 POC Glucose Random Glucose 99 Fasting Glucose Estimat Average Glucose Hemoglobin A1c % Lactic Acid Lactic Acid F/U @ 2Hr Lactic Acid F/U @ 4Hr Calcium 8.8 Phosphorus Magnesium Total Bilirubin 0.4 AST 16 ALT 5 Alkaline Phosphatase 117 Ammonia Troponin I High Sens C-Reactive Protein Total Protein 4.9 L Albumin 2.4 L Triglycerides Vitamin B12 Folate TSH Urine Color Urine Appearance Urine pH Ur Specific [place] Urine Protein Urine Glucose (UA) Urine Ketones Urine Blood Urine Nitrite Ur Leukocyte Esterase Urine RBC Urine WBC Ur Squamous Epith Cells Urine Bacteria Hyaline Casts Urine Osmolality Ur Random Sodium Stool Occult Blood Vancomycin Trough 18.7 Random Vancomycin COVID-19 (PADMA) COVID-19 Clin Com Blood Type Antibody Screen Crossmatch 10/02/22 10/02/22 10/03/22 04:35 08:26 04:50 WBC RBC Hgb Hct MCV MCH MCHC RDW Plt Count MPV Immature Gran % (Auto) Neut % (Auto) Lymph % (Auto) [place] % (Auto) Eos % (Auto) Baso % (Auto) Lymph # (Auto) [place] # (Auto) Eos # (Auto) Baso # (Auto) Abs Immat Gran (auto) Absolute Neuts (auto) Absolute Nucleated RBC Nucleated RBC % (auto) Neutrophils % (Manual) Band Neutrophils % Lymphocytes % (Manual) Atypical Lymphs % (Man) Monocytes % (Manual) Eosinophils % (Manual) Metamyelocytes % Myelocytes % Abs Neuts (Manual) Lymphocytes # (Manual) Atyp Lymphs # (Manual) Monocytes # (Manual) Eosinophils # (Manual) Metamyelocytes # Myelocytes # Nucleated RBCs Toxic Granulation Dohle Bodies WBC Morphology Comment Platelet Estimate Large Platelets Plt Morphology Comment RBC Morphology Polychromasia Hypochromasia Basophilic Stippling Microcytosis Macrocytosis Spherocytes Target Cells Stomatocytes [place] Cells Acanthocytes (Spur) Smear Tech's Comments Smear Path Review PT INR O2 Saturation ABG pH at Pt Temp ABG pCO2 at Pt Temp ABG pO2 at Pt Temp ABG HCO3 ABG Base Excess (Actual) VBG pH 7.46 H VBG pCO2 33 VBG pO2 33 VBG HCO3 24 VBG O2 Saturation 50.0 VBG Base Excess 0.7 Sodium 150 H Potassium 3.0 L Chloride 118 H Carbon Dioxide 22 Anion Gap 13 BUN 7 L Creatinine 0.81 Estim Creat Clear Calc 88.3 Estimated GFR > 60 POC Glucose Random Glucose 111 Fasting Glucose Estimat Average Glucose Hemoglobin A1c % Lactic Acid Lactic Acid F/U @ 2Hr Lactic Acid F/U @ 4Hr Calcium 9.0 Phosphorus 2.2 L Magnesium 1.7 Total Bilirubin AST ALT Alkaline Phosphatase Ammonia Troponin I High Sens C-Reactive Protein Total Protein Albumin 2.7 L Triglycerides Vitamin B12 Folate TSH Urine Color Urine Appearance Urine pH Ur Specific [place] Urine Protein Urine Glucose (UA) Urine Ketones Urine Blood Urine Nitrite Ur Leukocyte Esterase Urine RBC Urine WBC Ur Squamous Epith Cells Urine Bacteria Hyaline Casts Urine Osmolality Ur Random Sodium Stool Occult Blood NEGATIVE Vancomycin Trough Random Vancomycin COVID-19 (PADMA) COVID-19 Clin Com Blood Type Antibody Screen Crossmatch 10/03/22 10/03/22 10/03/22 04:50 04:50 06:15 WBC 17.2 H RBC 2.42 L Hgb 6.6 L* Hct 23.7 L MCV 97.9 MCH 27.3 MCHC 27.8 L RDW 19.7 H Plt Count 276 D MPV 9.6 Immature Gran % (Auto) Cancelled Neut % (Auto) Cancelled Lymph % (Auto) Cancelled [place] % (Auto) Cancelled Eos % (Auto) Cancelled Baso % (Auto) Cancelled Lymph # (Auto) Cancelled [place] # (Auto) Cancelled Eos # (Auto) Cancelled Baso # (Auto) Cancelled Abs Immat Gran (auto) Cancelled Absolute Neuts (auto) Cancelled Absolute Nucleated RBC 0.140 H Nucleated RBC % (auto) 0.8 H Neutrophils % (Manual) 75 H Band Neutrophils % 2 L Lymphocytes % (Manual) 19 L Atypical Lymphs % (Man) Monocytes % (Manual) 2 Eosinophils % (Manual) Metamyelocytes % 2 Myelocytes % Abs Neuts (Manual) 13.2 H Lymphocytes # (Manual) 3.3 Atyp Lymphs # (Manual) Monocytes # (Manual) 0.3 Eosinophils # (Manual) Metamyelocytes # 0.3 Myelocytes # Nucleated RBCs 1 H Toxic Granulation Dohle Bodies WBC Morphology Comment Platelet Estimate NORMAL Large Platelets Plt Morphology Comment NORMAL RBC Morphology NOTED Polychromasia 1+ (0-2) Hypochromasia 1+ (5-14) Basophilic Stippling Microcytosis Macrocytosis Spherocytes Target Cells 1+ (5-14) Stomatocytes [place] Cells Acanthocytes (Spur) Smear Tech's Comments Smear Path Review PT INR O2 Saturation ABG pH at Pt Temp ABG pCO2 at Pt Temp ABG pO2 at Pt Temp ABG HCO3 ABG Base Excess (Actual) VBG pH 7.44 H VBG pCO2 35 VBG pO2 41 VBG HCO3 24 VBG O2 Saturation 64.0 VBG Base Excess 0.5 Sodium Potassium Chloride Carbon Dioxide Anion Gap BUN Creatinine Estim Creat Clear Calc Estimated GFR POC Glucose Random Glucose Fasting Glucose Estimat Average Glucose Hemoglobin A1c % Lactic Acid Lactic Acid F/U @ 2Hr Lactic Acid F/U @ 4Hr Calcium Phosphorus Magnesium Total Bilirubin AST ALT Alkaline Phosphatase Ammonia Troponin I High Sens C-Reactive Protein Total Protein Albumin Triglycerides Vitamin B12 Folate TSH Urine Color Urine Appearance Urine pH Ur Specific [place] Urine Protein Urine Glucose (UA) Urine Ketones Urine Blood Urine Nitrite Ur Leukocyte Esterase Urine RBC Urine WBC Ur Squamous Epith Cells Urine Bacteria Hyaline Casts Urine Osmolality Ur Random Sodium Stool Occult Blood Vancomycin Trough Random Vancomycin COVID-19 (PADMA) COVID-19 Clin Com Blood Type A Positive Antibody Screen NEGATIVE Crossmatch See Detail 10/03/22 10/04/22 10/04/22 07:51 07:03 07:03 WBC 10.9 H RBC 3.10 L D Hgb 9.1 L D Hct 30.3 L D MCV 97.7 MCH 29.4 MCHC 30.0 L RDW 18.3 H Plt Count 177 D MPV 9.4 Immature Gran % (Auto) Cancelled Neut % (Auto) Cancelled Lymph % (Auto) Cancelled [place] % (Auto) Cancelled Eos % (Auto) Cancelled Baso % (Auto) Cancelled Lymph # (Auto) Cancelled [place] # (Auto) Cancelled Eos # (Auto) Cancelled Baso # (Auto) Cancelled Abs Immat Gran (auto) Cancelled Absolute Neuts (auto) Cancelled Absolute Nucleated RBC 0.080 H Nucleated RBC % (auto) 0.7 H Neutrophils % (Manual) 75 H Band Neutrophils % 8 H Lymphocytes % (Manual) 10 L Atypical Lymphs % (Man) Monocytes % (Manual) 4 Eosinophils % (Manual) Metamyelocytes % 1 Myelocytes % 2 Abs Neuts (Manual) 9.0 H Lymphocytes # (Manual) 1.1 L Atyp Lymphs # (Manual) Monocytes # (Manual) 0.4 Eosinophils # (Manual) Metamyelocytes # 0.1 Myelocytes # 0.2 Nucleated RBCs 1 H Toxic Granulation Dohle Bodies WBC Morphology Comment Platelet Estimate NORMAL Large Platelets Plt Morphology Comment NORMAL RBC Morphology NOTED Polychromasia Hypochromasia Basophilic Stippling Microcytosis Macrocytosis 1+ (5-14) Spherocytes 1+ (0-2) Target Cells Stomatocytes [place] Cells 1+ (0-2) Acanthocytes (Spur) Smear Tech's Comments Smear Path Review PT INR O2 Saturation ABG pH at Pt Temp ABG pCO2 at Pt Temp ABG pO2 at Pt Temp ABG HCO3 ABG Base Excess (Actual) VBG pH VBG pCO2 VBG pO2 VBG HCO3 VBG O2 Saturation VBG Base Excess Sodium Potassium Chloride Carbon Dioxide Anion Gap BUN Creatinine 0.87 Estim Creat Clear Calc 84.7 Estimated GFR > 60 POC Glucose Random Glucose Fasting Glucose Estimat Average Glucose Hemoglobin A1c % Lactic Acid Lactic Acid F/U @ 2Hr Lactic Acid F/U @ 4Hr Calcium Phosphorus Magnesium Total Bilirubin AST ALT Alkaline Phosphatase Ammonia Troponin I High Sens C-Reactive Protein Total Protein Albumin Triglycerides Vitamin B12 Folate TSH Urine Color Urine Appearance Urine pH Ur Specific [place] Urine Protein Urine Glucose (UA) Urine Ketones Urine Blood Urine Nitrite Ur Leukocyte Esterase Urine RBC Urine WBC Ur Squamous Epith Cells Urine Bacteria Hyaline Casts Urine Osmolality Ur Random Sodium Stool Occult Blood Vancomycin Trough Random Vancomycin 16.7 COVID-19 (PADMA) COVID-19 Clin Com Blood Type Antibody Screen Crossmatch 10/04/22 10/05/2210/05/23 09:56 06:48 06:49 WBC RBC Hgb Hct MCV MCH MCHC RDW Plt Count MPV Immature Gran % (Auto) Neut % (Auto) Lymph % (Auto) [place] % (Auto) Eos % (Auto) Baso % (Auto) Lymph # (Auto) [place] # (Auto) Eos # (Auto) Baso # (Auto) Abs Immat Gran (auto) Absolute Neuts (auto) Absolute Nucleated RBC Nucleated RBC % (auto) Neutrophils % (Manual) Band Neutrophils % Lymphocytes % (Manual) Atypical Lymphs % (Man) Monocytes % (Manual) Eosinophils % (Manual) Metamyelocytes % Myelocytes % Abs Neuts (Manual) Lymphocytes # (Manual) Atyp Lymphs # (Manual) Monocytes # (Manual) Eosinophils # (Manual) Metamyelocytes # Myelocytes # Nucleated RBCs Toxic Granulation Dohle Bodies WBC Morphology Comment Platelet Estimate Large Platelets Plt Morphology Comment RBC Morphology Polychromasia Hypochromasia Basophilic Stippling Microcytosis Macrocytosis Spherocytes Target Cells Stomatocytes [place] Cells Acanthocytes (Spur) Smear Tech's Comments Smear Path Review PT INR O2 Saturation ABG pH at Pt Temp ABG pCO2 at Pt Temp ABG pO2 at Pt Temp ABG HCO3 ABG Base Excess (Actual) VBG pH VBG pCO2 VBG pO2 VBG HCO3 VBG O2 Saturation VBG Base Excess Sodium Potassium Chloride Carbon Dioxide Anion Gap BUN Creatinine 1.05 Estim Creat Clear Calc 67.7 Estimated GFR 53 POC Glucose Random Glucose Fasting Glucose Estimat Average Glucose Hemoglobin A1c % Lactic Acid Lactic Acid F/U @ 2Hr Lactic Acid F/U @ 4Hr Calcium Phosphorus Magnesium Total Bilirubin AST ALT Alkaline Phosphatase Ammonia Troponin I High Sens C-Reactive Protein Total Protein Albumin Triglycerides Vitamin B12 Folate TSH Urine Color Urine Appearance Urine pH Ur Specific [place] Urine Protein Urine Glucose (UA) Urine Ketones Urine Blood Urine Nitrite Ur Leukocyte Esterase Urine RBC Urine WBC Ur Squamous Epith Cells Urine Bacteria Hyaline Casts Urine Osmolality Ur Random Sodium Stool Occult Blood NEGATIVE Vancomycin Trough Random Vancomycin 22.0 H COVID-19 (PADMA) COVID-19 Clin Com Blood Type Antibody Screen Crossmatch 10/05/22 10/05/22 10/06/22 11:41 13:13 06:46 WBC RBC Hgb Hct MCV MCH MCHC RDW Plt Count MPV Immature Gran % (Auto) Neut % (Auto) Lymph % (Auto) [place] % (Auto) Eos % (Auto) Baso % (Auto) Lymph # (Auto) [place] # (Auto) Eos # (Auto) Baso # (Auto) Abs Immat Gran (auto) Absolute Neuts (auto) Absolute Nucleated RBC Nucleated RBC % (auto) Neutrophils % (Manual) Band Neutrophils % Lymphocytes % (Manual) Atypical Lymphs % (Man) Monocytes % (Manual) Eosinophils % (Manual) Metamyelocytes % Myelocytes % Abs Neuts (Manual) Lymphocytes # (Manual) Atyp Lymphs # (Manual) Monocytes # (Manual) Eosinophils # (Manual) Metamyelocytes # Myelocytes # Nucleated RBCs Toxic Granulation Dohle Bodies WBC Morphology Comment Platelet Estimate Large Platelets Plt Morphology Comment RBC Morphology Polychromasia Hypochromasia Basophilic Stippling Microcytosis Macrocytosis Spherocytes Target Cells Stomatocytes [place] Cells Acanthocytes (Spur) Smear Tech's Comments Smear Path Review PT INR O2 Saturation ABG pH at Pt Temp ABG pCO2 at Pt Temp ABG pO2 at Pt Temp ABG HCO3 ABG Base Excess (Actual) VBG pH VBG pCO2 VBG pO2 VBG HCO3 VBG O2 Saturation VBG Base Excess Sodium Potassium Chloride Carbon Dioxide Anion Gap BUN Creatinine 1.32 Estim Creat Clear Calc 55.6 Estimated GFR 41 POC Glucose Random Glucose Fasting Glucose Estimat Average Glucose Hemoglobin A1c % Lactic Acid Lactic Acid F/U @ 2Hr Lactic Acid F/U @ 4Hr Calcium Phosphorus Magnesium Total Bilirubin AST ALT Alkaline Phosphatase Ammonia Troponin I High Sens C-Reactive Protein Total Protein Albumin Triglycerides Vitamin B12 Folate TSH Urine Color Urine Appearance Urine pH Ur Specific [place] Urine Protein Urine Glucose (UA) Urine Ketones Urine Blood Urine Nitrite Ur Leukocyte Esterase Urine RBC Urine WBC Ur Squamous Epith Cells Urine Bacteria Hyaline Casts Urine Osmolality Ur Random Sodium Stool Occult Blood Vancomycin Trough Random Vancomycin 21.2 H COVID-19 (PADMA) Negative COVID-19 Clin Com See Note Blood Type Antibody Screen Crossmatch 10/06/22 10/07/22 10/07/22 18:59 02:15 02:15 WBC 16.6 H RBC 2.97 L Hgb 8.7 L Hct 30.1 L MCV 101.3 H MCH 29.3 MCHC 28.9 L RDW 19.0 H Plt Count 126 L D MPV 10.7 Immature Gran % (Auto) Neut % (Auto) Lymph % (Auto) [place] % (Auto) Eos % (Auto) Baso % (Auto) Lymph # (Auto) [place] # (Auto) Eos # (Auto) Baso # (Auto) Abs Immat Gran (auto) Absolute Neuts (auto) Absolute Nucleated RBC 0.070 H Nucleated RBC % (auto) 0.4 H Neutrophils % (Manual) Band Neutrophils % Lymphocytes % (Manual) Atypical Lymphs % (Man) Monocytes % (Manual) Eosinophils % (Manual) Metamyelocytes % Myelocytes % Abs Neuts (Manual) Lymphocytes # (Manual) Atyp Lymphs # (Manual) Monocytes # (Manual) Eosinophils # (Manual) Metamyelocytes # Myelocytes # Nucleated RBCs Toxic Granulation Dohle Bodies WBC Morphology Comment Platelet Estimate Large Platelets Plt Morphology Comment RBC Morphology Polychromasia Hypochromasia Basophilic Stippling Microcytosis Macrocytosis Spherocytes Target Cells Stomatocytes [place] Cells Acanthocytes (Spur) Smear Tech's Comments Smear Path Review PT INR O2 Saturation ABG pH at Pt Temp ABG pCO2 at Pt Temp ABG pO2 at Pt Temp ABG HCO3 ABG Base Excess (Actual) VBG pH VBG pCO2 VBG pO2 VBG HCO3 VBG O2 Saturation VBG Base Excess Sodium 160 H* Potassium 2.8 L Chloride 126 H Carbon Dioxide 23 Anion Gap 14 BUN 18 H Creatinine 1.45 H Estim Creat Clear Calc 50.6 Estimated GFR 36 POC Glucose Random Glucose Fasting Glucose 84 Estimat Average Glucose Hemoglobin A1c % Lactic Acid Lactic Acid F/U @ 2Hr Lactic Acid F/U @ 4Hr Calcium 9.1 Phosphorus Magnesium Total Bilirubin AST ALT Alkaline Phosphatase Ammonia Troponin I High Sens C-Reactive Protein Total Protein Albumin Triglycerides Vitamin B12 Folate TSH Urine Color Urine Appearance Urine pH Ur Specific [place] Urine Protein Urine Glucose (UA) Urine Ketones Urine Blood Urine Nitrite Ur Leukocyte Esterase Urine RBC Urine WBC Ur Squamous Epith Cells Urine Bacteria Hyaline Casts Urine Osmolality Ur Random Sodium Stool Occult Blood Vancomycin Trough Random Vancomycin 20.4 H COVID-19 (PADMA) COVID-19 Clin Com Blood Type Antibody Screen Crossmatch 10/07/22 10/08/22 10/09/22 06:50 05:43 06:48 WBC 11.8 H RBC 3.05 L Hgb 8.8 L Hct 30.5 L MCV 100.0 H MCH 28.9 MCHC 28.9 L RDW 18.9 H Plt Count 119 L MPV 10.6 Immature Gran % (Auto) Cancelled Neut % (Auto) Cancelled Lymph % (Auto) Cancelled [place] % (Auto) Cancelled Eos % (Auto) Cancelled Baso % (Auto) Cancelled Lymph # (Auto) Cancelled [place] # (Auto) Cancelled Eos # (Auto) Cancelled Baso # (Auto) Cancelled Abs Immat Gran (auto) Cancelled Absolute Neuts (auto) Cancelled Absolute Nucleated RBC 0.040 H Nucleated RBC % (auto) 0.3 H Neutrophils % (Manual) 64 Band Neutrophils % 4 Lymphocytes % (Manual) 17 L Atypical Lymphs % (Man) Monocytes % (Manual) 7 Eosinophils % (Manual) 2 Metamyelocytes % 3 Myelocytes % 3 Abs Neuts (Manual) 8.0 Lymphocytes # (Manual) 2.0 Atyp Lymphs # (Manual) Monocytes # (Manual) 0.8 Eosinophils # (Manual) 0.2 Metamyelocytes # 0.4 Myelocytes # 0.4 Nucleated RBCs Toxic Granulation Dohle Bodies WBC Morphology Comment Platelet Estimate DECREASED Large Platelets Plt Morphology Comment NORMAL RBC Morphology NOTED Polychromasia Hypochromasia 1+ (5-14) Basophilic Stippling Microcytosis Macrocytosis Spherocytes Target Cells Stomatocytes [place] Cells Acanthocytes (Spur) Smear Tech's Comments Smear Path Review PT INR O2 Saturation ABG pH at Pt Temp ABG pCO2 at Pt Temp ABG pO2 at Pt Temp ABG HCO3 ABG Base Excess (Actual) VBG pH VBG pCO2 VBG pO2 VBG HCO3 VBG O2 Saturation VBG Base Excess Sodium 151 H Potassium 2.6 L Chloride 119 H Carbon Dioxide 23 Anion Gap 12 BUN 14 Creatinine 1.26 Estim Creat Clear Calc 58.8 Estimated GFR 43 POC Glucose Random Glucose Fasting Glucose 123 H Estimat Average Glucose Hemoglobin A1c % Lactic Acid Lactic Acid F/U @ 2Hr Lactic Acid F/U @ 4Hr Calcium 8.6 Phosphorus Magnesium 1.8 Total Bilirubin AST ALT Alkaline Phosphatase Ammonia Troponin I High Sens C-Reactive Protein Total Protein Albumin Triglycerides Vitamin B12 Folate TSH Urine Color Urine Appearance Urine pH Ur Specific [place] Urine Protein Urine Glucose (UA) Urine Ketones Urine Blood Urine Nitrite Ur Leukocyte Esterase Urine RBC Urine WBC Ur Squamous Epith Cells Urine Bacteria Hyaline Casts Urine Osmolality Ur Random Sodium Stool Occult Blood Vancomycin Trough Random Vancomycin 17.9 COVID-19 (PADMA) COVID-19 Clin Com Blood Type Antibody Screen Crossmatch 10/09/22 10/10/22 10/10/22 06:48 07:17 07:17 WBC 14.3 H RBC 3.22 L Hgb 9.5 L Hct 32.2 L MCV 100.0 H MCH 29.5 MCHC 29.5 L RDW 18.6 H Plt Count 123 L MPV 11.6 Immature Gran % (Auto) Cancelled Neut % (Auto) Cancelled Lymph % (Auto) Cancelled [place] % (Auto) Cancelled Eos % (Auto) Cancelled Baso % (Auto) Cancelled Lymph # (Auto) Cancelled [place] # (Auto) Cancelled Eos # (Auto) Cancelled Baso # (Auto) Cancelled Abs Immat Gran (auto) Cancelled Absolute Neuts (auto) Cancelled Absolute Nucleated RBC 0.030 H Nucleated RBC % (auto) 0.2 Neutrophils % (Manual) 66 Band Neutrophils % 3 Lymphocytes % (Manual) 17 L Atypical Lymphs % (Man) Monocytes % (Manual) 5 Eosinophils % (Manual) 5 H Metamyelocytes % 1 Myelocytes % 3 Abs Neuts (Manual) 9.9 H Lymphocytes # (Manual) 2.4 Atyp Lymphs # (Manual) Monocytes # (Manual) 0.7 Eosinophils # (Manual) 0.7 H Metamyelocytes # 0.1 Myelocytes # 0.4 Nucleated RBCs Toxic Granulation Dohle Bodies WBC Morphology Comment Platelet Estimate DECREASED Large Platelets Plt Morphology Comment NORMAL RBC Morphology NOTED Polychromasia 1+ (0-2) Hypochromasia 1+ (5-14) Basophilic Stippling Microcytosis Macrocytosis Spherocytes Target Cells Stomatocytes [place] Cells Acanthocytes (Spur) Smear Tech's Comments Smear Path Review PT INR O2 Saturation ABG pH at Pt Temp ABG pCO2 at Pt Temp ABG pO2 at Pt Temp ABG HCO3 ABG Base Excess (Actual) VBG pH VBG pCO2 VBG pO2 VBG HCO3 VBG O2 Saturation VBG Base Excess Sodium 152 H 151 H Potassium 2.8 L 2.9 L Chloride 121 H 123 H Carbon Dioxide 23 21 L Anion Gap 11 L 10 L BUN 12 10 Creatinine 1.10 0.92 Estim Creat Clear Calc 63.4 75.8 Estimated GFR 50 > 60 POC Glucose Random Glucose Fasting Glucose 126 H 103 H Estimat Average Glucose Hemoglobin A1c % Lactic Acid Lactic Acid F/U @ 2Hr Lactic Acid F/U @ 4Hr Calcium 9.0 9.2 Phosphorus Magnesium 2.1 2.0 Total Bilirubin 0.2 0.2 AST 11 11 ALT 5 < 5 Alkaline Phosphatase 61 68 Ammonia Troponin I High Sens C-Reactive Protein Total Protein 4.9 L 5.1 L Albumin 2.1 L 2.2 L Triglycerides Vitamin B12 1381 H Folate 3.3 L TSH Urine Color Urine Appearance Urine pH Ur Specific [place] Urine Protein Urine Glucose (UA) Urine Ketones Urine Blood Urine Nitrite Ur Leukocyte Esterase Urine RBC Urine WBC Ur Squamous Epith Cells Urine Bacteria Hyaline Casts Urine Osmolality Ur Random Sodium Stool Occult Blood Vancomycin Trough Random Vancomycin COVID-19 (PADMA) COVID-19 Clin Com Blood Type Antibody Screen Crossmatch 10/10/22 10/10/22 10/10/22 07:21 07:21 07:21 WBC Cancelled RBC Cancelled Hgb Cancelled Hct Cancelled MCV Cancelled MCH Cancelled MCHC Cancelled RDW Cancelled Plt Count Cancelled MPV Cancelled Immature Gran % (Auto) Neut % (Auto) Lymph % (Auto) [place] % (Auto) Eos % (Auto) Baso % (Auto) Lymph # (Auto) [place] # (Auto) Eos # (Auto) Baso # (Auto) Abs Immat Gran (auto) Absolute Neuts (auto) Absolute Nucleated RBC Cancelled Nucleated RBC % (auto) Cancelled Neutrophils % (Manual) Band Neutrophils % Lymphocytes % (Manual) Atypical Lymphs % (Man) Monocytes % (Manual) Eosinophils % (Manual) Metamyelocytes % Myelocytes % Abs Neuts (Manual) Lymphocytes # (Manual) Atyp Lymphs # (Manual) Monocytes # (Manual) Eosinophils # (Manual) Metamyelocytes # Myelocytes # Nucleated RBCs Toxic Granulation Dohle Bodies WBC Morphology Comment Platelet Estimate Large Platelets Plt Morphology Comment RBC Morphology Polychromasia Hypochromasia Basophilic Stippling Microcytosis Macrocytosis Spherocytes Target Cells Stomatocytes [place] Cells Acanthocytes (Spur) Smear Tech's Comments Smear Path Review PT INR O2 Saturation ABG pH at Pt Temp ABG pCO2 at Pt Temp ABG pO2 at Pt Temp ABG HCO3 ABG Base Excess (Actual) VBG pH VBG pCO2 VBG pO2 VBG HCO3 VBG O2 Saturation VBG Base Excess Sodium Cancelled Potassium Cancelled Chloride Cancelled Carbon Dioxide Cancelled Anion Gap Cancelled BUN Cancelled Creatinine Cancelled Estim Creat Clear Calc Cancelled Estimated GFR Cancelled POC Glucose Random Glucose Cancelled Fasting Glucose Estimat Average Glucose Hemoglobin A1c % Lactic Acid Lactic Acid F/U @ 2Hr Lactic Acid F/U @ 4Hr Calcium Cancelled Phosphorus Magnesium Cancelled Total Bilirubin AST ALT Alkaline Phosphatase Ammonia Troponin I High Sens 5.8 C-Reactive Protein Total Protein Albumin Triglycerides Vitamin B12 Folate TSH 9.43 H Urine Color Urine Appearance Urine pH Ur Specific [place] Urine Protein Urine Glucose (UA) Urine Ketones Urine Blood Urine Nitrite Ur Leukocyte Esterase Urine RBC Urine WBC Ur Squamous Epith Cells Urine Bacteria Hyaline Casts Urine Osmolality Ur Random Sodium Stool Occult Blood Vancomycin Trough Random Vancomycin COVID-19 (PADMA) COVID-19 Clin Com Blood Type Antibody Screen Crossmatch 10/10/22 10/10/22 10/11/22 11:52 18:25 07:48 WBC 12.6 H RBC 2.94 L Hgb 8.5 L Hct 29.9 L MCV 101.7 H MCH 28.9 MCHC 28.4 L RDW 19.0 H Plt Count 117 L MPV 11.1 Immature Gran % (Auto) Cancelled Neut % (Auto) Cancelled Lymph % (Auto) Cancelled [place] % (Auto) Cancelled Eos % (Auto) Cancelled Baso % (Auto) Cancelled Lymph # (Auto) Cancelled [place] # (Auto) Cancelled Eos # (Auto) Cancelled Baso # (Auto) Cancelled Abs Immat Gran (auto) Cancelled Absolute Neuts (auto) Cancelled Absolute Nucleated RBC 0.030 H Nucleated RBC % (auto) 0.2 Neutrophils % (Manual) 57 Band Neutrophils % 7 H Lymphocytes % (Manual) 22 Atypical Lymphs % (Man) Monocytes % (Manual) 8 Eosinophils % (Manual) Metamyelocytes % 4 Myelocytes % 2 Abs Neuts (Manual) 8.1 Lymphocytes # (Manual) 2.8 Atyp Lymphs # (Manual) Monocytes # (Manual) 1.0 Eosinophils # (Manual) Metamyelocytes # 0.5 Myelocytes # 0.3 Nucleated RBCs Toxic Granulation Dohle Bodies WBC Morphology Comment Platelet Estimate DECREASED Large Platelets Plt Morphology Comment NORM RBC Morphology NOTED Polychromasia 1+ (0-2) Hypochromasia 1+ (5-14) Basophilic Stippling Microcytosis 1+ (5-14) Macrocytosis 1+ (5-14) Spherocytes Target Cells Stomatocytes [place] Cells Acanthocytes (Spur) Smear Tech's Comments Smear Path Review PT INR O2 Saturation ABG pH at Pt Temp ABG pCO2 at Pt Temp ABG pO2 at Pt Temp ABG HCO3 ABG Base Excess (Actual) VBG pH VBG pCO2 VBG pO2 VBG HCO3 VBG O2 Saturation VBG Base Excess Sodium 154 H Potassium 3.4 Chloride 126 H Carbon Dioxide 22 Anion Gap 9 L BUN 9 Creatinine 0.94 Estim Creat Clear Calc 74.2 Estimated GFR > 60 POC Glucose Random Glucose 80 Fasting Glucose Estimat Average Glucose Hemoglobin A1c % Lactic Acid Lactic Acid F/U @ 2Hr Lactic Acid F/U @ 4Hr Calcium 9.2 Phosphorus 3.1 Magnesium Total Bilirubin AST ALT Alkaline Phosphatase Ammonia Troponin I High Sens C-Reactive Protein Total Protein Albumin Triglycerides Vitamin B12 Folate TSH Urine Color Urine Appearance Urine pH Ur Specific [place] Urine Protein Urine Glucose (UA) Urine Ketones Urine Blood Urine Nitrite Ur Leukocyte Esterase Urine RBC Urine WBC Ur Squamous Epith Cells Urine Bacteria Hyaline Casts Urine Osmolality Ur Random Sodium Stool Occult Blood Vancomycin Trough Random Vancomycin COVID-19 (PADMA) COVID-19 Clin Com Blood Type Antibody Screen Crossmatch 10/11/22 10/11/22 10/12/22 07:48 07:48 06:17 WBC RBC Hgb Hct MCV MCH MCHC RDW Plt Count MPV Immature Gran % (Auto) Neut % (Auto) Lymph % (Auto) [place] % (Auto) Eos % (Auto) Baso % (Auto) Lymph # (Auto) [place] # (Auto) Eos # (Auto) Baso # (Auto) Abs Immat Gran (auto) Absolute Neuts (auto) Absolute Nucleated RBC Nucleated RBC % (auto) Neutrophils % (Manual) Band Neutrophils % Lymphocytes % (Manual) Atypical Lymphs % (Man) Monocytes % (Manual) Eosinophils % (Manual) Metamyelocytes % Myelocytes % Abs Neuts (Manual) Lymphocytes # (Manual) Atyp Lymphs # (Manual) Monocytes # (Manual) Eosinophils # (Manual) Metamyelocytes # Myelocytes # Nucleated RBCs Toxic Granulation Dohle Bodies WBC Morphology Comment Platelet Estimate Large Platelets Plt Morphology Comment RBC Morphology Polychromasia Hypochromasia Basophilic Stippling Microcytosis Macrocytosis Spherocytes Target Cells Stomatocytes [place] Cells Acanthocytes (Spur) Smear Tech's Comments Smear Path Review PT INR O2 Saturation ABG pH at Pt Temp ABG pCO2 at Pt Temp ABG pO2 at Pt Temp ABG HCO3 ABG Base Excess (Actual) VBG pH VBG pCO2 VBG pO2 VBG HCO3 VBG O2 Saturation VBG Base Excess Sodium 156 H 160 H* Potassium 3.4 3.1 L Chloride 127 H 131 H Carbon Dioxide 22 21 L Anion Gap 10 L 11 L BUN 10 8 L Creatinine 0.92 0.95 Estim Creat Clear Calc 75.8 73.4 Estimated GFR > 60 59 POC Glucose Random Glucose 124 H 93 Fasting Glucose 124 H Estimat Average Glucose Hemoglobin A1c % Lactic Acid Lactic Acid F/U @ 2Hr Lactic Acid F/U @ 4Hr Calcium 9.3 9.5 Phosphorus 3.1 3.1 Magnesium 2.1 2.1 Total Bilirubin 0.2 AST 12 ALT 5 Alkaline Phosphatase 63 Ammonia Troponin I High Sens C-Reactive Protein Total Protein 4.9 L Albumin 2.1 L Triglycerides 187 143 Vitamin B12 Folate TSH Urine Color Urine Appearance Urine pH Ur Specific [place] Urine Protein Urine Glucose (UA) Urine Ketones Urine Blood Urine Nitrite Ur Leukocyte Esterase Urine RBC Urine WBC Ur Squamous Epith Cells Urine Bacteria Hyaline Casts Urine Osmolality Ur Random Sodium Stool Occult Blood Vancomycin Trough Random Vancomycin COVID-19 (PADMA) COVID-19 Clin Com Blood Type Antibody Screen Crossmatch 10/12/22 10/12/22 10/13/22 16:36 16:36 05:09 WBC RBC Hgb Hct MCV MCH MCHC RDW Plt Count MPV Immature Gran % (Auto) Neut % (Auto) Lymph % (Auto) [place] % (Auto) Eos % (Auto) Baso % (Auto) Lymph # (Auto) [place] # (Auto) Eos # (Auto) Baso # (Auto) Abs Immat Gran (auto) Absolute Neuts (auto) Absolute Nucleated RBC Nucleated RBC % (auto) Neutrophils % (Manual) Band Neutrophils % Lymphocytes % (Manual) Atypical Lymphs % (Man) Monocytes % (Manual) Eosinophils % (Manual) Metamyelocytes % Myelocytes % Abs Neuts (Manual) Lymphocytes # (Manual) Atyp Lymphs # (Manual) Monocytes # (Manual) Eosinophils # (Manual) Metamyelocytes # Myelocytes # Nucleated RBCs Toxic Granulation Dohle Bodies WBC Morphology Comment Platelet Estimate Large Platelets Plt Morphology Comment RBC Morphology Polychromasia Hypochromasia Basophilic Stippling Microcytosis Macrocytosis Spherocytes Target Cells Stomatocytes [place] Cells Acanthocytes (Spur) Smear Tech's Comments Smear Path Review PT INR O2 Saturation ABG pH at Pt Temp ABG pCO2 at Pt Temp ABG pO2 at Pt Temp ABG HCO3 ABG Base Excess (Actual) VBG pH VBG pCO2 VBG pO2 VBG HCO3 VBG O2 Saturation VBG Base Excess Sodium 155 H Potassium 3.9 D Chloride 127 H Carbon Dioxide 20 L Anion Gap 12 BUN 8 L Creatinine 1.07 Estim Creat Clear Calc 65.2 Estimated GFR 52 POC Glucose Random Glucose 241 H Fasting Glucose Estimat Average Glucose Hemoglobin A1c % Lactic Acid Lactic Acid F/U @ 2Hr Lactic Acid F/U @ 4Hr Calcium 9.3 Phosphorus 2.7 Magnesium 2.1 Total Bilirubin AST ALT Alkaline Phosphatase Ammonia Troponin I High Sens C-Reactive Protein Total Protein Albumin Triglycerides Vitamin B12 Folate TSH Urine Color Urine Appearance Urine pH Ur Specific [place] Urine Protein Urine Glucose (UA) Urine Ketones Urine Blood Urine Nitrite Ur Leukocyte Esterase Urine RBC Urine WBC Ur Squamous Epith Cells Urine Bacteria Hyaline Casts Urine Osmolality 181 L Ur Random Sodium 34.0 Stool Occult Blood Vancomycin Trough Random Vancomycin COVID-19 (PADMA) COVID-19 Clin Com Blood Type Antibody Screen Crossmatch 10/14/22 10/14/22 10/14/22 06:23 09:38 10:57 WBC RBC Hgb Hct MCV MCH MCHC RDW Plt Count MPV Immature Gran % (Auto) Neut % (Auto) Lymph % (Auto) [place] % (Auto) Eos % (Auto) Baso % (Auto) Lymph # (Auto) [place] # (Auto) Eos # (Auto) Baso # (Auto) Abs Immat Gran (auto) Absolute Neuts (auto) Absolute Nucleated RBC Nucleated RBC % (auto) Neutrophils % (Manual) Band Neutrophils % Lymphocytes % (Manual) Atypical Lymphs % (Man) Monocytes % (Manual) Eosinophils % (Manual) Metamyelocytes % Myelocytes % Abs Neuts (Manual) Lymphocytes # (Manual) Atyp Lymphs # (Manual) Monocytes # (Manual) Eosinophils # (Manual) Metamyelocytes # Myelocytes # Nucleated RBCs Toxic Granulation Dohle Bodies WBC Morphology Comment Platelet Estimate Large Platelets Plt Morphology Comment RBC Morphology Polychromasia Hypochromasia Basophilic Stippling Microcytosis Macrocytosis Spherocytes Target Cells Stomatocytes [place] Cells Acanthocytes (Spur) Smear Tech's Comments Smear Path Review PT INR O2 Saturation ABG pH at Pt Temp ABG pCO2 at Pt Temp ABG pO2 at Pt Temp ABG HCO3 ABG Base Excess (Actual) VBG pH VBG pCO2 VBG pO2 VBG HCO3 VBG O2 Saturation VBG Base Excess Sodium 148 H Potassium 4.8 D Chloride 121 H Carbon Dioxide 23 Anion Gap 9 L BUN 15 Creatinine 1.30 Estim Creat Clear Calc 53.6 Estimated GFR 41 POC Glucose 508 H* 530 H* Random Glucose 576 H* Fasting Glucose Estimat Average Glucose Hemoglobin A1c % Lactic Acid Lactic Acid F/U @ 2Hr Lactic Acid F/U @ 4Hr Calcium 9.3 Phosphorus 2.8 Magnesium 2.0 Total Bilirubin AST ALT Alkaline Phosphatase Ammonia Troponin I High Sens C-Reactive Protein Total Protein Albumin 2.4 L Triglycerides 200 Vitamin B12 Folate TSH Urine Color Urine Appearance Urine pH Ur Specific [place] Urine Protein Urine Glucose (UA) Urine Ketones Urine Blood Urine Nitrite Ur Leukocyte Esterase Urine RBC Urine WBC Ur Squamous Epith Cells Urine Bacteria Hyaline Casts Urine Osmolality Ur Random Sodium Stool Occult Blood Vancomycin Trough Random Vancomycin COVID-19 (PADMA) COVID-19 Clin Com Blood Type Antibody Screen Crossmatch 10/14/22 10/14/22 10/14/22 11:05 12:14 14:14 WBC RBC Hgb Hct MCV MCH MCHC RDW Plt Count MPV Immature Gran % (Auto) Neut % (Auto) Lymph % (Auto) [place] % (Auto) Eos % (Auto) Baso % (Auto) Lymph # (Auto) [place] # (Auto) Eos # (Auto) Baso # (Auto) Abs Immat Gran (auto) Absolute Neuts (auto) Absolute Nucleated RBC Nucleated RBC % (auto) Neutrophils % (Manual) Band Neutrophils % Lymphocytes % (Manual) Atypical Lymphs % (Man) Monocytes % (Manual) Eosinophils % (Manual) Metamyelocytes % Myelocytes % Abs Neuts (Manual) Lymphocytes # (Manual) Atyp Lymphs # (Manual) Monocytes # (Manual) Eosinophils # (Manual) Metamyelocytes # Myelocytes # Nucleated RBCs Toxic Granulation Dohle Bodies WBC Morphology Comment Platelet Estimate Large Platelets Plt Morphology Comment RBC Morphology Polychromasia Hypochromasia Basophilic Stippling Microcytosis Macrocytosis Spherocytes Target Cells Stomatocytes [place] Cells Acanthocytes (Spur) Smear Tech's Comments Smear Path Review PT INR O2 Saturation ABG pH at Pt Temp ABG pCO2 at Pt Temp ABG pO2 at Pt Temp ABG HCO3 ABG Base Excess (Actual) VBG pH VBG pCO2 VBG pO2 VBG HCO3 VBG O2 Saturation VBG Base Excess Sodium Potassium Chloride Carbon Dioxide Anion Gap BUN Creatinine Estim Creat Clear Calc Estimated GFR POC Glucose 559 H* 508 H* 479 H* Random Glucose Fasting Glucose Estimat Average Glucose Hemoglobin A1c % Lactic Acid Lactic Acid F/U @ 2Hr Lactic Acid F/U @ 4Hr Calcium Phosphorus Magnesium Total Bilirubin AST ALT Alkaline Phosphatase Ammonia Troponin I High Sens C-Reactive Protein Total Protein Albumin Triglycerides Vitamin B12 Folate TSH Urine Color Urine Appearance Urine pH Ur Specific [place] Urine Protein Urine Glucose (UA) Urine Ketones Urine Blood Urine Nitrite Ur Leukocyte Esterase Urine RBC Urine WBC Ur Squamous Epith Cells Urine Bacteria Hyaline Casts Urine Osmolality Ur Random Sodium Stool Occult Blood Vancomycin Trough Random Vancomycin COVID-19 (PADMA) COVID-19 Clin Com Blood Type Antibody Screen Crossmatch 10/14/22 10/14/22 10/15/22 15:59 19:45 05:43 WBC 9.0 RBC 2.59 L Hgb 7.6 L Hct 27.2 L MCV 105.0 H MCH 29.3 MCHC 27.9 L RDW 19.0 H Plt Count 77 L D MPV 12.1 Immature Gran % (Auto) Neut % (Auto) Lymph % (Auto) [place] % (Auto) Eos % (Auto) Baso % (Auto) Lymph # (Auto) [place] # (Auto) Eos # (Auto) Baso # (Auto) Abs Immat Gran (auto) Absolute Neuts (auto) Absolute Nucleated RBC 0.000 Nucleated RBC % (auto) 0.0 Neutrophils % (Manual) Band Neutrophils % Lymphocytes % (Manual) Atypical Lymphs % (Man) Monocytes % (Manual) Eosinophils % (Manual) Metamyelocytes % Myelocytes % Abs Neuts (Manual) Lymphocytes # (Manual) Atyp Lymphs # (Manual) Monocytes # (Manual) Eosinophils # (Manual) Metamyelocytes # Myelocytes # Nucleated RBCs Toxic Granulation Dohle Bodies WBC Morphology Comment Platelet Estimate Large Platelets Plt Morphology Comment RBC Morphology Polychromasia Hypochromasia Basophilic Stippling Microcytosis Macrocytosis Spherocytes Target Cells Stomatocytes [place] Cells Acanthocytes (Spur) Smear Tech's Comments Smear Path Review PT INR O2 Saturation ABG pH at Pt Temp ABG pCO2 at Pt Temp ABG pO2 at Pt Temp ABG HCO3 ABG Base Excess (Actual) VBG pH VBG pCO2 VBG pO2 VBG HCO3 VBG O2 Saturation VBG Base Excess Sodium Potassium Chloride Carbon Dioxide Anion Gap BUN Creatinine Estim Creat Clear Calc Estimated GFR POC Glucose 417 H* 316 H Random Glucose Fasting Glucose Estimat Average Glucose Hemoglobin A1c % Lactic Acid Lactic Acid F/U @ 2Hr Lactic Acid F/U @ 4Hr Calcium Phosphorus Magnesium Total Bilirubin AST ALT Alkaline Phosphatase Ammonia Troponin I High Sens C-Reactive Protein Total Protein Albumin Triglycerides Vitamin B12 Folate TSH Urine Color Urine Appearance Urine pH Ur Specific [place] Urine Protein Urine Glucose (UA) Urine Ketones Urine Blood Urine Nitrite Ur Leukocyte Esterase Urine RBC Urine WBC Ur Squamous Epith Cells Urine Bacteria Hyaline Casts Urine Osmolality Ur Random Sodium Stool Occult Blood Vancomycin Trough Random Vancomycin COVID-19 (PADMA) COVID-19 Clin Com Blood Type Antibody Screen Crossmatch 10/15/22 10/15/22 10/15/22 05:43 07:27 11:36 WBC RBC Hgb Hct MCV MCH MCHC RDW Plt Count MPV Immature Gran % (Auto) Neut % (Auto) Lymph % (Auto) [place] % (Auto) Eos % (Auto) Baso % (Auto) Lymph # (Auto) [place] # (Auto) Eos # (Auto) Baso # (Auto) Abs Immat Gran (auto) Absolute Neuts (auto) Absolute Nucleated RBC Nucleated RBC % (auto) Neutrophils % (Manual) Band Neutrophils % Lymphocytes % (Manual) Atypical Lymphs % (Man) Monocytes % (Manual) Eosinophils % (Manual) Metamyelocytes % Myelocytes % Abs Neuts (Manual) Lymphocytes # (Manual) Atyp Lymphs # (Manual) Monocytes # (Manual) Eosinophils # (Manual) Metamyelocytes # Myelocytes # Nucleated RBCs Toxic Granulation Dohle Bodies WBC Morphology Comment Platelet Estimate Large Platelets Plt Morphology Comment RBC Morphology Polychromasia Hypochromasia Basophilic Stippling Microcytosis Macrocytosis Spherocytes Target Cells Stomatocytes [place] Cells Acanthocytes (Spur) Smear Tech's Comments Smear Path Review PT INR O2 Saturation ABG pH at Pt Temp ABG pCO2 at Pt Temp ABG pO2 at Pt Temp ABG HCO3 ABG Base Excess (Actual) VBG pH VBG pCO2 VBG pO2 VBG HCO3 VBG O2 Saturation VBG Base Excess Sodium 155 H Potassium 4.8 Chloride 126 H Carbon Dioxide 23 Anion Gap 11 L BUN 22 H Creatinine 1.03 Estim Creat Clear Calc 67.7 Estimated GFR 54 POC Glucose 206 H 248 H Random Glucose 231 H Fasting Glucose Estimat Average Glucose Hemoglobin A1c % Lactic Acid Lactic Acid F/U @ 2Hr Lactic Acid F/U @ 4Hr Calcium 10.5 H D Phosphorus 3.4 Magnesium 2.2 Total Bilirubin AST ALT Alkaline Phosphatase Ammonia Troponin I High Sens C-Reactive Protein Total Protein Albumin 2.5 L Triglycerides 190 Vitamin B12 Folate TSH Urine Color Urine Appearance Urine pH Ur Specific [place] Urine Protein Urine Glucose (UA) Urine Ketones Urine Blood Urine Nitrite Ur Leukocyte Esterase Urine RBC Urine WBC Ur Squamous Epith Cells Urine Bacteria Hyaline Casts Urine Osmolality Ur Random Sodium Stool Occult Blood Vancomycin Trough Random Vancomycin COVID-19 (PADMA) COVID-19 Clin Com Blood Type Antibody Screen Crossmatch 10/15/22 10/15/22 10/15/22 13:46 15:15 15:54 WBC 8.1 RBC 2.39 L Hgb 7.0 L* Hct 24.7 L MCV 103.3 H MCH 29.3 MCHC 28.3 L RDW 18.6 H Plt Count 88 L MPV 11.2 Immature Gran % (Auto) Neut % (Auto) Lymph % (Auto) [place] % (Auto) Eos % (Auto) Baso % (Auto) Lymph # (Auto) [place] # (Auto) Eos # (Auto) Baso # (Auto) Abs Immat Gran (auto) Absolute Neuts (auto) Absolute Nucleated RBC 0.000 Nucleated RBC % (auto) 0.0 Neutrophils % (Manual) Band Neutrophils % Lymphocytes % (Manual) Atypical Lymphs % (Man) Monocytes % (Manual) Eosinophils % (Manual) Metamyelocytes % Myelocytes % Abs Neuts (Manual) Lymphocytes # (Manual) Atyp Lymphs # (Manual) Monocytes # (Manual) Eosinophils # (Manual) Metamyelocytes # Myelocytes # Nucleated RBCs Toxic Granulation Dohle Bodies WBC Morphology Comment Platelet Estimate Large Platelets Plt Morphology Comment RBC Morphology Polychromasia Hypochromasia Basophilic Stippling Microcytosis Macrocytosis Spherocytes Target Cells Stomatocytes [place] Cells Acanthocytes (Spur) Smear Tech's Comments Smear Path Review PT INR O2 Saturation ABG pH at Pt Temp ABG pCO2 at Pt Temp ABG pO2 at Pt Temp ABG HCO3 ABG Base Excess (Actual) VBG pH VBG pCO2 VBG pO2 VBG HCO3 VBG O2 Saturation VBG Base Excess Sodium Potassium Chloride Carbon Dioxide Anion Gap BUN Creatinine Estim Creat Clear Calc Estimated GFR POC Glucose 247 H Random Glucose Fasting Glucose Estimat Average Glucose Hemoglobin A1c % Lactic Acid Lactic Acid F/U @ 2Hr Lactic Acid F/U @ 4Hr Calcium Phosphorus Magnesium Total Bilirubin AST ALT Alkaline Phosphatase Ammonia Troponin I High Sens C-Reactive Protein Total Protein Albumin Triglycerides Vitamin B12 Folate TSH Urine Color Urine Appearance Urine pH Ur Specific [place] Urine Protein Urine Glucose (UA) Urine Ketones Urine Blood Urine Nitrite Ur Leukocyte Esterase Urine RBC Urine WBC Ur Squamous Epith Cells Urine Bacteria Hyaline Casts Urine Osmolality Ur Random Sodium Stool Occult Blood Vancomycin Trough Random Vancomycin COVID-19 (PADMA) COVID-19 Clin Com Blood Type A Positive Antibody Screen NEGATIVE Crossmatch See Detail 10/15/22 10/16/22 10/16/22 19:51 04:10 04:10 WBC 8.3 RBC 2.88 L D Hgb 8.6 L D Hct 29.2 L MCV 101.4 H MCH 29.9 MCHC 29.5 L RDW 17.9 H Plt Count 88 L MPV 11.8 Immature Gran % (Auto) Neut % (Auto) Lymph % (Auto) [place] % (Auto) Eos % (Auto) Baso % (Auto) Lymph # (Auto) [place] # (Auto) Eos # (Auto) Baso # (Auto) Abs Immat Gran (auto) Absolute Neuts (auto) Absolute Nucleated RBC 0.000 Nucleated RBC % (auto) 0.0 Neutrophils % (Manual) Band Neutrophils % Lymphocytes % (Manual) Atypical Lymphs % (Man) Monocytes % (Manual) Eosinophils % (Manual) Metamyelocytes % Myelocytes % Abs Neuts (Manual) Lymphocytes # (Manual) Atyp Lymphs # (Manual) Monocytes # (Manual) Eosinophils # (Manual) Metamyelocytes # Myelocytes # Nucleated RBCs Toxic Granulation Dohle Bodies WBC Morphology Comment Platelet Estimate Large Platelets Plt Morphology Comment RBC Morphology Polychromasia Hypochromasia Basophilic Stippling Microcytosis Macrocytosis Spherocytes Target Cells Stomatocytes [place] Cells Acanthocytes (Spur) Smear Tech's Comments Smear Path Review PT INR O2 Saturation ABG pH at Pt Temp ABG pCO2 at Pt Temp ABG pO2 at Pt Temp ABG HCO3 ABG Base Excess (Actual) VBG pH VBG pCO2 VBG pO2 VBG HCO3 VBG O2 Saturation VBG Base Excess Sodium 151 H Potassium 4.8 Chloride 121 H Carbon Dioxide 25 Anion Gap 10 L BUN 27 H Creatinine 1.00 Estim Creat Clear Calc 69.7 Estimated GFR 56 POC Glucose 164 H Random Glucose 301 H Fasting Glucose Estimat Average Glucose Hemoglobin A1c % Lactic Acid Lactic Acid F/U @ 2Hr Lactic Acid F/U @ 4Hr Calcium 10.5 H Phosphorus 3.6 Magnesium 2.1 Total Bilirubin AST ALT Alkaline Phosphatase Ammonia Troponin I High Sens C-Reactive Protein Total Protein Albumin Triglycerides Vitamin B12 Folate TSH Urine Color Urine Appearance Urine pH Ur Specific [place] Urine Protein Urine Glucose (UA) Urine Ketones Urine Blood Urine Nitrite Ur Leukocyte Esterase Urine RBC Urine WBC Ur Squamous Epith Cells Urine Bacteria Hyaline Casts Urine Osmolality Ur Random Sodium Stool Occult Blood Vancomycin Trough Random Vancomycin COVID-19 (PADMA) COVID-19 Clin Com Blood Type Antibody Screen Crossmatch 10/16/22 10/16/22 10/16/22 04:10 04:10 07:11 WBC RBC Hgb Hct MCV MCH MCHC RDW Plt Count MPV Immature Gran % (Auto) Neut % (Auto) Lymph % (Auto) [place] % (Auto) Eos % (Auto) Baso % (Auto) Lymph # (Auto) [place] # (Auto) Eos # (Auto) Baso # (Auto) Abs Immat Gran (auto) Absolute Neuts (auto) Absolute Nucleated RBC Nucleated RBC % (auto) Neutrophils % (Manual) Band Neutrophils % Lymphocytes % (Manual) Atypical Lymphs % (Man) Monocytes % (Manual) Eosinophils % (Manual) Metamyelocytes % Myelocytes % Abs Neuts (Manual) Lymphocytes # (Manual) Atyp Lymphs # (Manual) Monocytes # (Manual) Eosinophils # (Manual) Metamyelocytes # Myelocytes # Nucleated RBCs Toxic Granulation Dohle Bodies WBC Morphology Comment Platelet Estimate Large Platelets Plt Morphology Comment RBC Morphology Polychromasia Hypochromasia Basophilic Stippling Microcytosis Macrocytosis Spherocytes Target Cells Stomatocytes [place] Cells Acanthocytes (Spur) Smear Tech's Comments Smear Path Review PT 13.6 H INR 1.2 H O2 Saturation ABG pH at Pt Temp ABG pCO2 at Pt Temp ABG pO2 at Pt Temp ABG HCO3 ABG Base Excess (Actual) VBG pH VBG pCO2 VBG pO2 VBG HCO3 VBG O2 Saturation VBG Base Excess Sodium Potassium Chloride Carbon Dioxide Anion Gap BUN Creatinine Estim Creat Clear Calc Estimated GFR POC Glucose 269 H Random Glucose Fasting Glucose Estimat Average Glucose 105 Hemoglobin A1c % 5.3 Lactic Acid Lactic Acid F/U @ 2Hr Lactic Acid F/U @ 4Hr Calcium Phosphorus Magnesium Total Bilirubin AST ALT Alkaline Phosphatase Ammonia Troponin I High Sens C-Reactive Protein Total Protein Albumin Triglycerides Vitamin B12 Folate TSH Urine Color Urine Appearance Urine pH Ur Specific [place] Urine Protein Urine Glucose (UA) Urine Ketones Urine Blood Urine Nitrite Ur Leukocyte Esterase Urine RBC Urine WBC Ur Squamous Epith Cells Urine Bacteria Hyaline Casts Urine Osmolality Ur Random Sodium Stool Occult Blood Vancomycin Trough Random Vancomycin COVID-19 (PADMA) COVID-19 Clin Com Blood Type Antibody Screen Crossmatch 10/16/22 10/16/22 10/16/22 11:23 16:34 20:37 WBC RBC Hgb Hct MCV MCH MCHC RDW Plt Count MPV Immature Gran % (Auto) Neut % (Auto) Lymph % (Auto) [place] % (Auto) Eos % (Auto) Baso % (Auto) Lymph # (Auto) [place] # (Auto) Eos # (Auto) Baso # (Auto) Abs Immat Gran (auto) Absolute Neuts (auto) Absolute Nucleated RBC Nucleated RBC % (auto) Neutrophils % (Manual) Band Neutrophils % Lymphocytes % (Manual) Atypical Lymphs % (Man) Monocytes % (Manual) Eosinophils % (Manual) Metamyelocytes % Myelocytes % Abs Neuts (Manual) Lymphocytes # (Manual) Atyp Lymphs # (Manual) Monocytes # (Manual) Eosinophils # (Manual) Metamyelocytes # Myelocytes # Nucleated RBCs Toxic Granulation Dohle Bodies WBC Morphology Comment Platelet Estimate Large Platelets Plt Morphology Comment RBC Morphology Polychromasia Hypochromasia Basophilic Stippling Microcytosis Macrocytosis Spherocytes Target Cells Stomatocytes [place] Cells Acanthocytes (Spur) Smear Tech's Comments Smear Path Review PT INR O2 Saturation ABG pH at Pt Temp ABG pCO2 at Pt Temp ABG pO2 at Pt Temp ABG HCO3 ABG Base Excess (Actual) VBG pH VBG pCO2 VBG pO2 VBG HCO3 VBG O2 Saturation VBG Base Excess Sodium Potassium Chloride Carbon Dioxide Anion Gap BUN Creatinine Estim Creat Clear Calc Estimated GFR POC Glucose 287 H 246 H 252 H Random Glucose Fasting Glucose Estimat Average Glucose Hemoglobin A1c % Lactic Acid Lactic Acid F/U @ 2Hr Lactic Acid F/U @ 4Hr Calcium Phosphorus Magnesium Total Bilirubin AST ALT Alkaline Phosphatase Ammonia Troponin I High Sens C-Reactive Protein Total Protein Albumin Triglycerides Vitamin B12 Folate TSH Urine Color Urine Appearance Urine pH Ur Specific [place] Urine Protein Urine Glucose (UA) Urine Ketones Urine Blood Urine Nitrite Ur Leukocyte Esterase Urine RBC Urine WBC Ur Squamous Epith Cells Urine Bacteria Hyaline Casts Urine Osmolality Ur Random Sodium Stool Occult Blood Vancomycin Trough Random Vancomycin COVID-19 (PADMA) COVID-19 Clin Com Blood Type Antibody Screen Crossmatch 10/17/22 10/17/22 10/17/22 04:23 04:23 07:26 WBC 11.2 H RBC 3.16 L Hgb 9.5 L Hct 31.8 L MCV 100.6 H MCH 30.1 MCHC 29.9 L RDW 17.5 H Plt Count 85 L MPV 12.1 Immature Gran % (Auto) Neut % (Auto) Lymph % (Auto) [place] % (Auto) Eos % (Auto) Baso % (Auto) Lymph # (Auto) [place] # (Auto) Eos # (Auto) Baso # (Auto) Abs Immat Gran (auto) Absolute Neuts (auto) Absolute Nucleated RBC 0.000 Nucleated RBC % (auto) 0.0 Neutrophils % (Manual) Band Neutrophils % Lymphocytes % (Manual) Atypical Lymphs % (Man) Monocytes % (Manual) Eosinophils % (Manual) Metamyelocytes % Myelocytes % Abs Neuts (Manual) Lymphocytes # (Manual) Atyp Lymphs # (Manual) Monocytes # (Manual) Eosinophils # (Manual) Metamyelocytes # Myelocytes # Nucleated RBCs Toxic Granulation Dohle Bodies WBC Morphology Comment Platelet Estimate Large Platelets Plt Morphology Comment RBC Morphology Polychromasia Hypochromasia Basophilic Stippling Microcytosis Macrocytosis Spherocytes Target Cells Stomatocytes [place] Cells Acanthocytes (Spur) Smear Tech's Comments Smear Path Review PT INR O2 Saturation ABG pH at Pt Temp ABG pCO2 at Pt Temp ABG pO2 at Pt Temp ABG HCO3 ABG Base Excess (Actual) VBG pH VBG pCO2 VBG pO2 VBG HCO3 VBG O2 Saturation VBG Base Excess Sodium 145 Potassium 4.3 Chloride 115 H Carbon Dioxide 24 Anion Gap 10 L BUN 28 H Creatinine 0.92 Estim Creat Clear Calc 75.8 Estimated GFR > 60 POC Glucose 96 Random Glucose 104 Fasting Glucose Estimat Average Glucose Hemoglobin A1c % Lactic Acid Lactic Acid F/U @ 2Hr Lactic Acid F/U @ 4Hr Calcium 10.5 H Phosphorus 2.6 L Magnesium 2.0 Total Bilirubin AST ALT Alkaline Phosphatase Ammonia Troponin I High Sens C-Reactive Protein Total Protein Albumin Triglycerides Vitamin B12 1244 H Folate 3.8 L TSH Urine Color Urine Appearance Urine pH Ur Specific [place] Urine Protein Urine Glucose (UA) Urine Ketones Urine Blood Urine Nitrite Ur Leukocyte Esterase Urine RBC Urine WBC Ur Squamous Epith Cells Urine Bacteria Hyaline Casts Urine Osmolality Ur Random Sodium Stool Occult Blood Vancomycin Trough Random Vancomycin COVID-19 (PADMA) COVID-19 Clin Com Blood Type Antibody Screen Crossmatch 10/17/22 10/17/22 11:03 12:19 WBC RBC Hgb Hct MCV MCH MCHC RDW Plt Count MPV Immature Gran % (Auto) Neut % (Auto) Lymph % (Auto) [place] % (Auto) Eos % (Auto) Baso % (Auto) Lymph # (Auto) [place] # (Auto) Eos # (Auto) Baso # (Auto) Abs Immat Gran (auto) Absolute Neuts (auto) Absolute Nucleated RBC Nucleated RBC % (auto) Neutrophils % (Manual) Band Neutrophils % Lymphocytes % (Manual) Atypical Lymphs % (Man) Monocytes % (Manual) Eosinophils % (Manual) Metamyelocytes % Myelocytes % Abs Neuts (Manual) Lymphocytes # (Manual) Atyp Lymphs # (Manual) Monocytes # (Manual) Eosinophils # (Manual) Metamyelocytes # Myelocytes # Nucleated RBCs Toxic Granulation Dohle Bodies WBC Morphology Comment Platelet Estimate Large Platelets Plt Morphology Comment RBC Morphology Polychromasia Hypochromasia Basophilic Stippling Microcytosis Macrocytosis Spherocytes Target Cells Stomatocytes [place] Cells Acanthocytes (Spur) Smear Tech's Comments Smear Path Review PT INR O2 Saturation ABG pH at Pt Temp ABG pCO2 at Pt Temp ABG pO2 at Pt Temp ABG HCO3 ABG Base Excess (Actual) VBG pH VBG pCO2 VBG pO2 VBG HCO3 VBG O2 Saturation VBG Base Excess Sodium Potassium Chloride Carbon Dioxide Anion Gap BUN Creatinine Estim Creat Clear Calc Estimated GFR POC Glucose 78 67 Random Glucose Fasting Glucose Estimat Average Glucose Hemoglobin A1c % Lactic Acid Lactic Acid F/U @ 2Hr Lactic Acid F/U @ 4Hr Calcium Phosphorus Magnesium Total Bilirubin AST ALT Alkaline Phosphatase Ammonia Troponin I High Sens C-Reactive Protein Total Protein Albumin Triglycerides Vitamin B12 Folate TSH Urine Color Urine Appearance Urine pH Ur Specific [place] Urine Protein Urine Glucose (UA) Urine Ketones Urine Blood Urine Nitrite Ur Leukocyte Esterase Urine RBC Urine WBC Ur Squamous Epith Cells Urine Bacteria Hyaline Casts Urine Osmolality Ur Random Sodium Stool Occult Blood Vancomycin Trough Random Vancomycin COVID-19 (PADMA) COVID-19 Clin Com Blood Type Antibody Screen Crossmatch Narrative Narrative: Borderline gag reflex. Airway Mallampati Class: Patient Non-Cooperative TM Dist: <=3cm Neck ROM: Full Denture: Upper and Lower Heart: OK Lungs: Paradoxical RR with RR about 22, Sat 96% on 3L Assessment and Plan Assessment Anesthesia Assessment: Chart Reviewed Anesthetic Plan Anesthetic Plan: Other (With the patient's deficient gag reflex and borderline resp status, there is a significant chance that during the course of anesthetic mx for a PEG, the trachea would wind up intubated, and not be easily extubatable. Per Dr. Silva, there are no ICU beds available today. See anesth progress note.)
--- NOTE | 2022-10-17 13:13 | PC.NURSE ---
pt procedure cancelled dr menjivar spoke to guardian aware and floor rn
--- NOTE | 2022-10-17 13:20 | PM.ANESPN ---
Subjective Subjective Date of Service: 10/17/22 Interval history: See my anesthesia consult note of today. Per my conversation with Dr. Silva, he strongly discouraged doing the procedure today. Physical Exam Vital Signs: Vital Signs: Last Vital Signs Temp 97.3 F 10/17/22 12:28 Pulse 91 10/17/22 12:28 Resp 22 H 10/17/22 12:28 BP 129/67 10/17/22 12:28 Pulse Ox 95 10/17/22 12:28 O2 Del Method Nasal Cannula 10/17/22 12:28 O2 Flow Rate 3 10/17/22 12:28 FiO2 21 10/02/22 07:00 BMI result Body Mass Index 32.1 Progress Note: A&P Time Spent With Patient Time: Total time managing care of this patient today ____ minutes. Progress Note: Quality Stroke Does the patient have a stroke diagnosis?: No
--- NOTE | 2022-10-17 13:31 | PM.ANESCN ---
History of Present Illness Consult details Consult date: 10/17/22 Requesting physician: Serafin Santiago Narrative: Mrs. Vaughn is scheduled for a PEG. Dr. Santiago is concerned that she may require tracheal intubation forthe procedure. [facility] Past Medical History Medical History (Updated 10/17/22 @ 14:33 by Donny Andrade MD) Chronic kidney disease, stage 3 COVID Hx of detention use of blood thinners Hypertension Intellectual disability Pressure sore on ankle Pulmonary embolism Schizoaffective disorder Cognitive capacity: Very impaired. also has hx of aspiration pneumonia. Social History Social History Household Members: Unknown / Unable to assess Housing: Unknown / Unable to assess Unable to assess alcohol history related to: Unable to respond Patient Tobacco Use Status: Tobacco use Unknown Use of substances other than those prescribed or required for medical reasons: Unknown Currently Displaying Signs/Symptoms of Drug Intoxication Withdrawal: No Are you DNR?: No Advance Directives: No Advance Directives Information Provided: No Recently lost weight without trying: Unsure Patient : No service: No Current occupational status: disabled Meds Allergies Allergy/AdvReac Type Severity Reaction Status Date / Time Unable to Assess Allergy Verified 01/02/22 11:20 Active Medications: Current Medications Acetaminophen (Acetaminophen Supp 650 Mg Supp.Rect) 650 mg [place] Q6H PRN PRN Reason: Fever Last Admin: 10/07/22 01:59 Dose: 650 mg Heparin Sodium (Porcine) 50 (units/ Sodium Chloride 5 ml) 0 units IVFLUSH QSHIFT [facility] Last Admin: 10/17/22 07:51 Dose: 50 unit Divalproex Sodium (Divalproex Sodium Sprinkles 125 Mg Filipe.) 1,000 mg PO BID [facility] Last Admin: 10/17/22 07:38 Dose: Not Given Famotidine (Famotidine/Pf 20 Mg/2 Ml Vial) 20 mg IVPUSH DAILY [facility] Last Admin: 10/17/22 07:51 Dose: 20 mg Folic Acid (Folic Acid 1 Mg Tablet) 1 mg PO DAILY [facility] Last Admin: 10/17/22 07:39 Dose: Not Given Glucose (Glucose Gel 15 Gm Gel..Gram.) 15 gm PO Q15M PRN; Protocol PRN Reason: per Hypoglycemia Standing Ord. Dextrose (D10) 250 mls @ 750 mls/hr IV Q15M PRN; Protocol PRN Reason: per Hypoglycemia Standing Ord. Cefazolin Sodium/Dextrose (Ancef) 2 gm in 50 mls @ 100 mls/hr IV PREOP ONE Stop: 10/17/22 13:40 Lactated Ringer's (Lr) 1,000 mls @ 100 mls/hr IVCONT .Q10H [facility] Last Admin: 10/17/22 11:16 Dose: 100 mls/hr Insulin Human Lispro (Insulin Lispro 100 Unit/Ml 3 Ml Vial) 0 unit SUBCUT QIDACHS [facility]; Protocol Last Admin: 10/17/22 11:17 Dose: Not Given Levothyroxine Sodium (Levothyroxine Sodium 100 Mcg/5 Ml Vial) 50 mcg IVPUSH DAILY@0600 [facility] Last Admin: 10/17/22 05:00 Dose: Not Given Mirtazapine (Mirtazapine 7.5 Mg Tablet) 7.5 mg PO BEDTIME [facility] Last Admin: 10/16/22 22:26 Dose: 7.5 mg Ondansetron HCl (Ondansetron Hcl 4 Mg/2 Ml Vial) 4 mg IVPUSH Q4H PRN PRN Reason: Nausea and Vomiting Last Admin: 10/05/22 14:18 Dose: 4 mg Quetiapine Fumarate (Quetiapine Fumarate 50 Mg Tablet) 50 mg PO TID [facility] Last Admin: 10/17/22 07:39 Dose: Not Given Zinc Oxide (Zinc Oxide 20% Ointment 28.35 Gm Tube) 1 appl TOPICAL BID [facility]; Protocol Last Admin: 10/17/22 07:52 Dose: 1 appl Home Medications Medication Instructions Recorded Confirmed Last Taken Type acetaminophen 500 mg tablet 1,000 mg PO TID PRN Pain 01/02/22 09/29/22 Unknown History apixaban 2.5 mg tablet (Eliquis) 2.5 mg PO BID 01/02/22 09/29/22 Unknown History atorvastatin 10 mg tablet 10 mg PO BEDTIME 01/02/22 09/29/22 Unknown History divalproex 125 mg capsule,delayed 1,000 mg PO BID 01/02/22 09/29/22 Unknown History release sprinkle lactulose 10 gram/15 mL oral 20 g PO BID 01/02/22 09/29/22 Unknown History solution (Enulose) levothyroxine 100 mcg capsule 100 mcg PO DAILY 01/02/22 09/29/22 Unknown History mirtazapine 7.5 mg tablet 7.5 mg PO BEDTIME 01/02/22 09/29/22 Unknown History quetiapine 50 mg tablet 50 mg PO TID 01/02/22 09/29/22 Unknown History trazodone 100 mg tablet 200 mg PO BID 01/02/22 09/29/22 Unknown History ascorbic acid (vitamin C) 1,000 mg 1,000 mg PO BID 09/29/22 09/29/22 Unknown History tablet (Vitamin C) ascorbic acid (vitamin C) 250 mg 250 mg PO BID 09/29/22 09/29/22 Unknown History tablet (Vitamin C) bisacodyl 10 mg rectal suppository 10 mg UT DAILY PRN Constipation 09/29/22 09/29/22 Unknown History tramadol 50 mg tablet 50 mg PO BID PRN Pain 09/29/22 09/29/22 Unknown History Physical Exam Vital Signs: Vital Signs: Last Vital Signs Temp 97.3 F 10/17/22 12:28 Pulse 91 10/17/22 12:28 Resp 22 H 10/17/22 12:28 BP 129/67 10/17/22 12:28 Pulse Ox 95 10/17/22 12:28 O2 Del Method Nasal Cannula 10/17/22 12:28 O2 Flow Rate 3 10/17/22 12:28 FiO2 21 10/02/22 07:00 BMI result Body Mass Index 32.1 The RR is about 22, w Sat 96% on 3L oxymask. She has at least mild resp paradox. Gag reflex is significantly diminished. Results Labs 10/17/22 04:23 10/17/22 04:23 Labs: Abnormal lab results 10/16/22 10/16/22 10/17/22 Range/Units 16:34 20:37 04: WBC 11.2 H (4.8-10.8) X10*3/uL RBC 3.16 L (4.20-5.50) X10*6/uL Hgb 9.5 L (12.0-16.0) g/dl Hct 31.8 L (37.0-47.0) % MCV 100.6 H (80.0-98.0) fL MCHC 29.9 L (31.0-35.0) g/dl RDW 17.5 H (11.0-16.0) % Plt Count 85 L (160-400) X10*3/uL Chloride (96-108) mmol/L Anion Gap (12-20) BUN (9-16) mg/dL POC Glucose 246 H 252 H (60-115) mg/dL Calcium (8.4-10.2) mg/dL Phosphorus (2.7-4.5) mg/dL Vitamin B12 (200-900) pg/mL Folate (> or = 4.0) ng/mL 10/17/22 Range/Units 04:23 WBC (4.8-10.8) X10*3/uL RBC (4.20-5.50) X10*6/uL Hgb (12.0-16.0) g/dl Hct (37.0-47.0) % MCV (80.0-98.0) fL MCHC (31.0-35.0) g/dl RDW (11.0-16.0) % Plt Count (160-400) X10*3/uL Chloride 115 H (96-108) mmol/L Anion Gap 10 L (12-20) BUN 28 H (9-16) mg/dL POC Glucose (60-115) mg/dL Calcium 10.5 H (8.4-10.2) mg/dL Phosphorus 2.6 L (2.7-4.5) mg/dL Vitamin B12 1244 H (200-900) pg/mL Folate 3.8 L (> or = 4.0) ng/mL Short CBC 10/17/22 Range/Units 04:23 WBC 11.2 H (4.8-10.8) X10*3/uL Hgb 9.5 L (12.0-16.0) g/dl Hct 31.8 L (37.0-47.0) % Plt Count 85 L (160-400) X10*3/uL BMP 10/17/22 04:23 Sodium 145 Potassium 4.3 Chloride 115 H Carbon Dioxide 24 BUN 28 H Creatinine 0.92 Calcium 10.5 H Urine 09/29/22 Range/Units 14:20 Urine Color Yellow Urine Appearance Turbid Urine pH 6.5 (5.0-9.0) Ur Specific [place] 1.015 (1.005-1.025) Urine Protein 100 (2+) H (Neg-Trace) mg/dL Urine Glucose (UA) Negative (Negative) mg/dL All other labs normal. Assessment and Plan (1) Respiratory insufficiency: Status: Acute Plan D/w Dr. Silva and at length w Dr. Santiago. It is reasonable to start the procedure with TIVA, but there is a signif likelihood that she would require tracheal intubation, for any of a number of reasons, and thereafter possibly/likely not easily extubatable, thereby requiring an ICU stay. Dr. Silva indicated to me that he has no ICU beds today, he knows the patient, and he told me not to intubate her. Given all the above factors, and the clear reality that intubation would very possibly be required, after d/w Dr. Santiago the procedure has been postboned to a coming day as soon as an ICU bed is available. Time Spent With Patient Time: Total time managing care of this patient today 45 minutes (including above ref discussions and discussion with nursing and anesthesia directors of the OR). Procedures Date of Service Date of Service: 10/17/22
[2022-10-17 13:32] LABS: Glucose, Whole Blood 88 mg/dL (60-115)
--- NOTE | 2022-10-17 13:32 | MHC.CM.PN ---
EMR REVIEWED, PLAN FOR PEG TUBE PLACEMENT TODAY, [facility] UPDATED AND HAVE BEEN SENT DIETARY NOTES W/PEG TUBE NUTRITION INFO, CM AWAITING RESPONSE AND CM WILL CONT TO FOLLOW
--- NOTE | 2022-10-17 15:05 | PM.EVENT ---
Event Note Date of Service: 10/17/22 Event Note: Patient was scheduled for PEG tube placement today However, there were no ICU beds available As per anesthesiologist, significant risk of being intubated remaining on the ventilator so ICU bed would be necessary Peg tube placement therefore postponed Explained to healthcare proxy Edith Time Spent With Patient Time: Total time managing care of this patient today ____ minutes.
[2022-10-17 15:22] VITALS: BP 97/59; PULSE 88; RESP 17; TEMP 35.9; O2SAT 97
[2022-10-17 15:39] LABS: Glucose, Whole Blood 98 mg/dL (60-115)
[2022-10-17] MEDS: Potassium Phosphate/NS 15 MMOL/250 ML PLAST..BAG 62.5 MMOL IV (16:29)
[2022-10-17] MEDS: Fat Emulsions 20% 250 ML 14 ML IVCONT (18:08)
[2022-10-17 19:25] VITALS: BP 113/85; PULSE 133; RESP 17; TEMP 37.4; O2SAT 92
[2022-10-17 21:00] LABS: Glucose, Whole Blood 111 mg/dL (60-115)
[2022-10-18] VITALS: BP 113/56; PULSE 94; RESP 18; TEMP 36.6; O2SAT 95
[2022-10-18 00:20] LABS: Glucose, Whole Blood 137 mg/dL (60-115)
[2022-10-18 04:00] VITALS: BP 136/60; PULSE 94; RESP 16; TEMP 36.2; O2SAT 97
[2022-10-18] MEDS: Fat Emulsions 20% 250 ML 14 ML IVCONT ×2 (06:27→19:14)
[2022-10-18] MEDS: Levothyroxine Sodium 100 MCG/5 ML VIAL 50 MCG IVPUSH (06:28)
[2022-10-18 06:58] LABS: Anion Gap 12 (12-20); Blood Urea Nitrogen 28 mg/dL (9-16); Calcium 10.9 mg/dL (8.4-10.2); Carbon Dioxide 25 mmol/L (22-29); Chloride 113 mmol/L (96-108); Creatinine Clr Calc Pharmacy 65.8; Estimated Glomerular Filt Rate 52; Glucose Random 136 mg/dL (60-115); Magnesium 1.9 mg/dL (1.6-2.6); Sodium 146 mmol/L (135-145)
[2022-10-18 07:37] VITALS: BP 119/56; PULSE 90; RESP 20; TEMP 36.3; O2SAT 96
[2022-10-18 08:06] LABS: Glucose, Whole Blood 156 mg/dL (60-115)
[2022-10-18] MEDS: Zinc Oxide 20% Ointment 28.35 GM TUBE 1 APPL TOPICAL ×2 (09:12→21:50)
[2022-10-18] MEDS: Heparin Sodium,Porcine Flush 50 UNITS, 0.9 % Sodium Chloride Flush 5 ML IVFLUSH ×2 (09:12→17:21)
--- NOTE | 2022-10-18 09:42 | P.PNIM_ITS ---
Subjective Subjective Date of Service: 10/18/22 Interval History: PEG tube canceled yesterday due to unavailability of post-op ICU bed Review of Systems Review of Systems: Yes Unobtainable due to mental status Physical Exam Vital Signs: Vital Signs: Last Vital Signs Temp 97.3 F 10/18/22 07:37 Pulse 90 10/18/22 07:37 Resp 20 10/18/22 07:37 BP 119/56 L 10/18/22 07:37 Pulse Ox 96 10/18/22 07:37 O2 Del Method Oxymask 10/18/22 07:37 O2 Flow Rate 3 10/18/22 07:37 FiO2 21 10/02/22 07:00 BMI result Body Mass Index 32.1 Gen: in no acute distress HEENT: sclera anicteric, moist mucus membranes Neck: supple Lungs: diminished bilaterally Heart: regular rate and rhythm, no murmurs Abd: soft, non-tender, non-distended Ext: generalized edema Skin: warm/well-perfused Neuro: alert, nonverbal, moving all extremities Psych: impaired insight Objective Data Active Medications Acetaminophen (Acetaminophen Supp 650 Mg Supp.Rect) 650 mg [place] Q6H PRN PRN Reason: Fever Last Admin: 10/07/22 01:59 Dose: 650 mg Documented By: GAGANOIC Heparin Sodium (Porcine) 50 (units/ Sodium Chloride 5 ml) 0 units IVFLUSH QSHIFT [facility] Last Admin: 10/18/22 09:12 Dose: 50 unit Documented By: YAMILE Divalproex Sodium (Divalproex Sodium Sprinkles 125 Mg ) 1,000 mg PO BID [facility] Last Admin: 10/18/22 08:26 Dose: Not Given Documented By: YAMILE Non-Admin Reason: NPO Famotidine (Famotidine/Pf 20 Mg/2 Ml Vial) 20 mg IVPUSH DAILY [facility] Last Admin: 10/18/22 08:26 Dose: Not Given Documented By: YAMILE Non-Admin Reason: NPO Folic Acid (Folic Acid 1 Mg Tablet) 1 mg PO DAILY [facility] Last Admin: 10/18/22 08:26 Dose: Not Given Documented By: YAMILE Non-Admin Reason: NPO Glucose (Glucose Gel 15 Gm Gel..Gram.) 15 gm PO Q15M PRN; Protocol PRN Reason: per Hypoglycemia Standing Ord. Dextrose (D10) 250 mls @ 750 mls/hr IV Q15M PRN; Protocol PRN Reason: per Hypoglycemia Standing Ord. Lactated Ringer's (Lr) 1,000 mls @ 100 mls/hr IVCONT .Q10H [facility] Last Admin: 10/18/22 09:17 Dose: Not Given Documented By: YAMILE Non-Admin Reason: IV Running Amino Acids/Electrolytes/Dextrose (Clinimix 4.25%-10%) 2,000 mls @ 85 mls/hr IVCONT DAILY@1800 [facility] Stop: 10/18/22 17:32 Last Infusion: 10/18/22 01:29 Dose: 0 mls/hr Documented By: MAHNAZ Fat Emulsion Intravenous (Intralipid) 168 mls @ 14 mls/hr IVCONT BID@0600,1800 [facility] Stop: 10/18/22 17:59 Last Admin: 10/18/22 06:27 Dose: 14 mls/hr Documented By: MAHNAZ Insulin Human Lispro (Insulin Lispro 100 Unit/Ml 3 Ml Vial) 0 unit SUBCUT QIDACHS [facility]; Protocol Last Admin: 10/18/22 08:26 Dose: Not Given Documented By: YAMILE Non-Admin Reason: NPO Levothyroxine Sodium (Levothyroxine Sodium 100 Mcg/5 Ml Vial) 50 mcg IVPUSH DAILY@0600 [facility] Last Admin: 10/18/22 06:28 Dose: 50 mcg Documented By: MAHNAZ Mirtazapine (Mirtazapine 7.5 Mg Tablet) 7.5 mg PO BEDTIME [facility] Last Admin: 10/18/22 00:18 Dose: Not Given Documented By: MAHNAZ Non-Admin Reason: NPO Ondansetron HCl (Ondansetron Hcl 4 Mg/2 Ml Vial) 4 mg IVPUSH Q4H PRN PRN Reason: Nausea and Vomiting Last Admin: 10/05/22 14:18 Dose: 4 mg Documented By: MILTON Quetiapine Fumarate (Quetiapine Fumarate 50 Mg Tablet) 50 mg PO TID [facility] Last Admin: 10/18/22 08:26 Dose: Not Given Documented By: [email or web address] Non-Admin Reason: NPO Zinc Oxide (Zinc Oxide 20% Ointment 28.35 Gm Tube) 1 appl TOPICAL BID [facility]; Protocol Last Admin: 10/18/22 09:12 Dose: 1 appl Documented By: YAMILE Labs 10/17/22 04:23 10/18/22 05:50 Labs: Laboratory Results - last 24 hr 10/17/22 10/17/22 10/17/22 11:03 12:19 13:28 Anion Gap Estim Creat Clear Calc Estimated GFR POC Glucose 78 67 88 Random Glucose Calcium Phosphorus Magnesium 10/17/22 10/17/22 10/18/22 15:25 19:27 00:15 Anion Gap Estim Creat Clear Calc Estimated GFR POC Glucose 98 111 137 H Random Glucose Calcium Phosphorus Magnesium 10/18/22 10/18/22 05:50 08:02 Anion Gap 12 Estim Creat Clear Calc 65.8 Estimated GFR 52 POC Glucose 156 H Random Glucose 136 H Calcium 10.9 H Phosphorus 3.0 Magnesium 1.9 Assessment and Plan (1) Aspiration into respiratory tract: Status: Acute (2) Hypernatremia: Status: Acute Plan hospital d#20 62yo F admitted initially to ICU for pressor support for sepsis due to UTI. Transferred to floor then vomited, developed aspiration pneumonitis # aspiration pneumonitis/ recurrent aspiration - finished 10-day course of IV antibiotic on 10/09, but developed hypoxia; repeat chest x-ray 10/10 showed new infiltrate, therefore placed back on IV Zosyn 10/10-10/15 - re-evaluated by speech therapy, recommended pureed and pudding thick liquids diet - decreased by mouth intake since; patient noted to have cough and secretions - given dysphagia + recurrent aspirations and decreased PO intake, pt placed on IV PPN. discussion with pt's guardian previously by Dr Cagle resulted in plan to proceed with PEG placement - high risk of requiring continued ventilation postop; no ICU bed available yesterday, so PEG tube has been postponed - continue IV PPN # acute hypoxic resp failure - treated 2x with ABX for aspiration pneumonia - frequent suctioning and close monitoring for aspiration with one-to-one feeding; keep head of bed elevated # hypernatremia, hypovolemic - resolved s/p D5W repletion # hypoK - repleted # hyperglycemia without DM - A1c 5.3, give correction-dose lispro # acute/chronic macrocytic anemia # folate deficiency - s/p 2u pRBCs 10/03/22 and 1u pRBCs 10/15/22 - replace folate # hx of PE - apixaban held 10/13 for PEG placement # schizoaffective disorder - continue valproate, quetiapine, mirtazapine # UTI, multiple - completed antibiotics # hypothyroidism - continue LT4 # fluid overload - likely due to hypoalbuminemia + hypotonic fluid given IV; given 1 dose HCTZ on 10/14 # multiple wounds - R posterior knee, unstageable: silver alginate - coccyx, stage 2: Zn oxide/silver alginate - B heels, unstageable: silver alginate - R posterior ankle, unstageable: Betadine paint - R hand, skin tear: Xeroform # VTE ppx: apixaban on hold # dispo: eventual return to [facility] for LTC In my clinical judgment, the patient requires continued inpatient hospitalization for the following reasons: PEG tube Time Spent With Patient Time: Total time managing care of this patient today __35__ minutes. Quality Stroke Does the patient have a stroke diagnosis?: No VTE Prior VTE?: No VTE Risk Level:: Medical - moderate - high VTE Device Contraindication: N/A - Device Ordered VTE Drug Contraindication: N/A - Med Ordered
--- NOTE | 2022-10-18 10:24 | MHC.CLN ---
F/U PEG CANCELLED YESTERDAY AND POSTPONED AT THIS TIME REVIEWED LABS DISCUSSED WITH PHARMACY PT TO CONTINUE RECEIVING PPN D10AA4.25 AT 85ML/HR WITH 14ML OF 20% LIPIDS PROVIDES 1712 TOTAL KCALS (FROM FORMULA & LIPIDS; 23KCALS/KG), 87G PROTEIN (1.2G/KG) REPLETE LYTES NEEDED PT REMAINS NPO-AWAITING PEG FOLLOWING WITH TEAM
--- NOTE | 2022-10-18 11:03 | PM.PNNEP ---
Subjective Subjective Date of Service: 10/19/22 Interval history: PEG tube canceled yesterday due to unavailability of post-op ICU bed Physical Exam Vital Signs: Vital Signs: Last Vital Signs Temp 97.3 F 10/18/22 07:37 Pulse 90 10/18/22 07:37 Resp 20 10/18/22 07:37 BP 119/56 L 10/18/22 07:37 Pulse Ox 96 10/18/22 07:37 O2 Del Method Oxymask 10/18/22 07:37 O2 Flow Rate 3 10/18/22 07:37 FiO2 21 10/02/22 07:00 BMI result Body Mass Index 32.1 Neck: Neck: Yes supple Resp: Auscultation: diminished lung sounds Cardio: Rate: regular rate GI: Palpation (GI): Soft to palpation Skin: General skin exam: no rashes or lesions noted Neuro: General: moves all extremities Objective Data Labs 10/17/22 04:23 10/18/22 05:50 Labs: Laboratory Results - last 24 hr 10/17/22 10/17/22 10/17/22 11:03 12:19 13:28 Sodium Potassium Chloride Carbon Dioxide Anion Gap BUN Creatinine Estim Creat Clear Calc Estimated GFR POC Glucose 78 67 88 Random Glucose Calcium Phosphorus Magnesium 10/17/22 10/17/22 10/18/22 15:25 19:27 00:15 Sodium Potassium Chloride Carbon Dioxide Anion Gap BUN Creatinine Estim Creat Clear Calc Estimated GFR POC Glucose 98 111 137 H Random Glucose Calcium Phosphorus Magnesium 10/18/22 10/18/22 05:50 08:02 Sodium 146 H Potassium 4.0 Chloride 113 H Carbon Dioxide 25 Anion Gap 12 BUN 28 H Creatinine 1.06 Estim Creat Clear Calc 65.8 Estimated GFR 52 POC Glucose 156 H Random Glucose 136 H Calcium 10.9 H Phosphorus 3.0 Magnesium 1.9 Microbiology Microbiology Results: Microbiology 10/01/22 18:06 Blood - Venous Blood Culture - Final No growth after 5 days. 10/01/22 18:06 Blood - Venous Blood Culture - Final No growth after 5 days. 09/29/22 23:00 Heel, Left Gram Stain - Final 09/29/22 23:00 Heel, Left Routine Culture - Final Proteus mirabilis Methicillin Res Staph Aureus 09/29/22 14:08 Blood - Venous Blood Culture - Final No growth after 5 days. 09/29/22 14:08 Blood - Venous Blood Culture - Final Coag negative Staphylococcus Peptostreptococcus species 09/29/22 23:55 Sputum - Suctioned Gram Stain - Final 09/29/22 23:55 Sputum - Suctioned Sputum Culture - Final 09/29/22 Unknown Urine Catheterized - Randall Catheter Urine Culture - Final Procedures Date of Service Date of Service: 10/18/22 Assessment & Plan Assessment and plan (1) Hypernatremia: Status: Acute Assessment and Plan: Hypernatremia due to free water deficit Serum sodium is at 145 Keep LR If NA increases, switch to D5W and keep I > O Needs to monitor electrolytes/K Anemia Concur with other medical management Shall closely follow up Time Spent With Patient Time: Total time managing care of this patient today ____ minutes. Progress Note: Quality Stroke Does the patient have a stroke diagnosis?: No
[2022-10-18 11:42] VITALS: BP 137/60; PULSE 95; RESP 20; TEMP 38; O2SAT 92
[2022-10-18 12:00] LABS: Glucose, Whole Blood 177 mg/dL (60-115)
--- NOTE | 2022-10-18 14:40 | MHC.CM.PN ---
EMR REVIEWED, PER HOSPITALIST PEG TUBE PLACEMENT POSTPONED D/T NO ICU BED AVAILABLE POST OP, IV PPN TO BE RESUMED, [facility] UPDATED [facility]IA [facility] AND CM WILL CONT TO FOLLOW D/C NEEDS.
--- NOTE | 2022-10-18 14:44 | MHC.SLORD ---
Speech Language Pathology Order Status: Per RN, PEG placement deferred d/t ICU room availability. Per MD, Plan is for transition to tube feeds. Orals for comfort only. MD requested RAMP SUPERVISOR continue to provide pt with oral care. Pt accepted limited oral care on this date; moisturizer only. RAMP SUPERVISOR to continue to follow for oral care.
[2022-10-18 15:53] VITALS: BP 119/59; PULSE 95; RESP 14; TEMP 36.3; O2SAT 95
[2022-10-18 16:39] LABS: Glucose, Whole Blood 176 mg/dL (60-115)
[2022-10-18 16:53] LABS: Triglycerides 306 mg/dL
[2022-10-18 20:00] VITALS: BP 132/76; PULSE 93; RESP 15; TEMP 36.2; O2SAT 94
[2022-10-18 20:42] LABS: Glucose, Whole Blood 198 mg/dL (60-115)
[2022-10-18] MEDS: Insulin Lispro 100 UNIT/ML 3 ML VIAL SUBCUT (20:50)
[2022-10-19] VITALS (7 sets, daily range): BP systolic 126–149; BP diastolic 56–68; PULSE 68–92; RESP 14–20; TEMP 36.1–37.1; O2SAT 92–97
[2022-10-19] MEDS: Heparin Sodium,Porcine Flush 50 UNITS, 0.9 % Sodium Chloride Flush 5 ML IVFLUSH ×3 (01:19→17:56)
[2022-10-19 07:04] LABS: Anion Gap 10 (12-20); Blood Urea Nitrogen 35 mg/dL (9-16); Calcium 10.6 mg/dL (8.4-10.2); Carbon Dioxide 25 mmol/L (22-29); Chloride 110 mmol/L (96-108); Creatinine Clr Calc Pharmacy 73.4; Estimated Glomerular Filt Rate 59; Glucose Random 176 mg/dL (60-115); Magnesium 1.9 mg/dL (1.6-2.6); Phosphorus 3.1 mg/dL (2.7-4.5); Potassium 4.2 mmol/L (3.3-5.1); Sodium 141 mmol/L (135-145)
[2022-10-19] MEDS: Fat Emulsions 20% 250 ML 14 ML IVCONT ×2 (07:49→20:38)
[2022-10-19 08:07] LABS: Glucose, Whole Blood 168 mg/dL (60-115)
[2022-10-19] MEDS: Famotidine/PF 20 MG/2 ML VIAL IVPUSH (08:13)
[2022-10-19] MEDS: Insulin Lispro 100 UNIT/ML 3 ML VIAL SUBCUT (08:15)
[2022-10-19] MEDS: Zinc Oxide 20% Ointment 28.35 GM TUBE 1 APPL TOPICAL ×2 (08:18→20:25)
--- NOTE | 2022-10-19 11:07 | PM.PNNEP ---
Subjective Subjective Date of Service: 10/30/22 Interval history: Events noted Physical Exam Vital Signs: Vital Signs: Last Vital Signs Temp 97.4 F 10/19/22 08:00 Pulse 68 10/19/22 08:00 Resp 17 10/19/22 08:00 BP 149/65 H 10/19/22 08:00 Pulse Ox 92 10/19/22 08:00 O2 Del Method Oxymask 10/19/22 08:00 O2 Flow Rate 3 10/19/22 08:00 FiO2 21 10/02/22 07:00 BMI result Body Mass Index 32.1 Neck: Neck: Yes supple Resp: Auscultation: diminished lung sounds Cardio: Rate: regular rate GI: Palpation (GI): Soft to palpation Skin: General skin exam: no rashes or lesions noted Neuro: General: moves all extremities Objective Data Labs 10/17/22 04:23 10/19/22 06:06 Labs: Laboratory Results - last 24 hr 10/14/22 10/15/22 10/18/22 06:23 05:43 11:41 Sodium Potassium Chloride Carbon Dioxide Anion Gap BUN Creatinine Estim Creat Clear Calc Estimated GFR POC Glucose 177 H Random Glucose Calcium Phosphorus Magnesium Triglycerides 306 TNP 10/18/22 10/18/22 10/19/22 16:30 20:30 06:06 Sodium 141 Potassium 4.2 Chloride 110 H Carbon Dioxide 25 Anion Gap 10 L BUN 35 H Creatinine 0.95 Estim Creat Clear Calc 73.4 Estimated GFR 59 POC Glucose 176 H 198 H Random Glucose 176 H Calcium 10.6 H Phosphorus 3.1 Magnesium 1.9 Triglycerides 10/19/22 08:03 Sodium Potassium Chloride Carbon Dioxide Anion Gap BUN Creatinine Estim Creat Clear Calc Estimated GFR POC Glucose 168 H Random Glucose Calcium Phosphorus Magnesium Triglycerides Microbiology Microbiology Results: Microbiology 10/01/22 18:06 Blood - Venous Blood Culture - Final No growth after 5 days. 10/01/22 18:06 Blood - Venous Blood Culture - Final No growth after 5 days. 09/29/22 23:00 Heel, Left Gram Stain - Final 09/29/22 23:00 Heel, Left Routine Culture - Final Proteus mirabilis Methicillin Res Staph Aureus 09/29/22 14:08 Blood - Venous Blood Culture - Final No growth after 5 days. 09/29/22 14:08 Blood - Venous Blood Culture - Final Coag negative Staphylococcus Peptostreptococcus species 09/29/22 23:55 Sputum - Suctioned Gram Stain - Final 09/29/22 23:55 Sputum - Suctioned Sputum Culture - Final 09/29/22 Unknown Urine Catheterized - Randall Catheter Urine Culture - Final Procedures Date of Service Date of Service: 10/19/22 Assessment & Plan Assessment and plan (1) Hypernatremia: Status: Acute Assessment and Plan: Hypernatremia due to free water deficit Serum sodium is better May need IVF - D5W if pNa increases and keep I > O Needs to closely monitor electrolytes/K Anemia Concur with other medical management Shall closely follow up Time Spent With Patient Time: Total time managing care of this patient today ____ minutes. Progress Note: Quality Stroke Does the patient have a stroke diagnosis?: No
[2022-10-19 11:42] LABS: Glucose, Whole Blood 130 mg/dL (60-115)
--- NOTE | 2022-10-19 12:15 | MHC.CLN ---
F/U REVIEWED LABS DISCUSSED WITH PHARMACY PT TO CONTINUE RECEIVING PPN D10AA4.25 AT 85ML/HR WITH 14ML OF 20% LIPIDS PROVIDES 1712 TOTAL KCALS (FROM FORMULA & LIPIDS; 23KCALS/KG), 87G PROTEIN (1.2G/KG) REPLETE LYTES NEEDED FOLLOWING WITH TEAM
--- NOTE | 2022-10-19 14:58 | P.PNIM_ITS ---
Subjective Subjective Date of Service: 10/19/22 Interval History: still awaiting PEG tube placement Review of Systems Review of Systems: Yes Unobtainable due to mental status Physical Exam 2 Vital Signs: Vital Signs: Last Vital Signs Temp 98.8 F 10/19/22 11:48 Pulse 91 10/19/22 11:48 Resp 18 10/19/22 11:48 BP 134/61 10/19/22 11:48 Pulse Ox 97 10/19/22 11:48 O2 Del Method Oxymask 10/19/22 11:48 O2 Flow Rate 3 10/19/22 11:48 FiO2 21 10/02/22 07:00 BMI result Body Mass Index 32.1 Gen: in no acute distress HEENT: sclera anicteric, moist mucus membranes Neck: supple Lungs: diminished bilaterally Heart: regular rate and rhythm, no murmurs Abd: soft, non-tender, non-distended Ext: generalized edema Skin: warm/well-perfused Neuro: alert, nonverbal, moving all extremities Psych: impaired insight Objective Data Active Medications Acetaminophen (Acetaminophen Supp 650 Mg Supp.Rect) 650 mg [place] Q6H PRN PRN Reason: Fever Last Admin: 10/07/22 01:59 Dose: 650 mg Documented By: ANTOIC Heparin Sodium (Porcine) 50 (units/ Sodium Chloride 5 ml) 0 units IVFLUSH QSHIFT [facility] Last Admin: 10/19/22 08:14 Dose: 50 unit Documented By: NANCY Divalproex Sodium (Divalproex Sodium Sprinkles 125 Mg ) 1,000 mg PO BID [facility] Last Admin: 10/19/22 08:03 Dose: Not Given Documented By: NANCY Non-Admin Reason: NPO Famotidine (Famotidine/Pf 20 Mg/2 Ml Vial) 20 mg IVPUSH DAILY [facility] Last Admin: 10/19/22 08:13 Dose: 20 mg Documented By: NANCY Folic Acid (Folic Acid 1 Mg Tablet) 1 mg PO DAILY [facility] Last Admin: 10/19/22 08:04 Dose: Not Given Documented By: NANCY Non-Admin Reason: NPO Glucose (Glucose Gel 15 Gm Gel..Gram.) 15 gm PO Q15M PRN; Protocol PRN Reason: per Hypoglycemia Standing Ord. Dextrose (D10) 250 mls @ 750 mls/hr IV Q15M PRN; Protocol PRN Reason: per Hypoglycemia Standing Ord. Magnesium Sulfate 10 meq/Potassium Phosphate 30 mmol/Potassium Acetate 30 meq/Multivitamins 10 ml/ Trace Metals 1 ml/ Amino Acids/Electrolytes/Dextrose 2,038.5 mls @ 85 mls/hr IVCONT DAILY@1800 [facility] Stop: 10/19/22 17:59 Last Admin: 10/18/22 19:14 Dose: 85 mls/hr Documented By: YAMILE Fat Emulsion Intravenous (Intralipid) 168 mls @ 14 mls/hr IVCONT BID@0600,1800 [facility] Stop: 10/19/22 17:59 Last Admin: 10/19/22 07:49 Dose: 14 mls/hr Documented By: NANCY Magnesium Sulfate 10 meq/Potassium Phosphate 30 mmol/Potassium Acetate 30 meq/Amino Acids/Electrolytes/Dextrose 2,027.5 mls @ 85 mls/hr IVCONT DAILY@1800 [facility] Stop: 10/20/22 17:52 Fat Emulsion Intravenous (Intralipid) 168 mls @ 14 mls/hr IVCONT BID@0600,1800 [facility] Stop: 10/20/22 17:59 Insulin Human Lispro (Insulin Lispro 100 Unit/Ml 3 Ml Vial) 0 unit SUBCUT QIDACHS [facility]; Protocol Last Admin: 10/19/22 11:51 Dose: Not Given Documented By: NANCY Non-Admin Reason: No Insulin Coverage Levothyroxine Sodium (Levothyroxine Sodium 100 Mcg/5 Ml Vial) 50 mcg IVPUSH DAILY@0600 [facility] Last Admin: 10/19/22 10:43 Dose: Not Given Documented By: DAYAMI Non-Admin Reason: previous shift held - no reason given Mirtazapine (Mirtazapine 7.5 Mg Tablet) 7.5 mg PO BEDTIME [facility] Last Admin: 10/18/22 21:01 Dose: Not Given Documented By: CHRIS Non-Admin Reason: NPO Ondansetron HCl (Ondansetron Hcl 4 Mg/2 Ml Vial) 4 mg IVPUSH Q4H PRN PRN Reason: Nausea and Vomiting Last Admin: 10/05/22 14:18 Dose: 4 mg Documented By: MILTON Quetiapine Fumarate (Quetiapine Fumarate 50 Mg Tablet) 50 mg PO TID [facility] Last Admin: 10/19/22 08:03 Dose: Not Given Documented By: NANCY Non-Admin Reason: NPO Zinc Oxide (Zinc Oxide 20% Ointment 28.35 Gm Tube) 1 appl TOPICAL BID [facility]; Protocol Last Admin: 10/19/22 08:18 Dose: 1 appl Documented By: NANCY Labs 10/17/22 04:23 10/19/22 06:06 Labs: Laboratory Results - last 24 hr 10/14/22 10/15/22 10/18/22 06:23 05:43 16:30 Anion Gap Estim Creat Clear Calc Estimated GFR POC Glucose 176 H Random Glucose Calcium Phosphorus Magnesium Triglycerides 306 TNP 10/18/22 10/19/22 10/19/22 20:30 06:06 08:03 Anion Gap 10 L Estim Creat Clear Calc 73.4 Estimated GFR 59 POC Glucose 198 H 168 H Random Glucose 176 H Calcium 10.6 H Phosphorus 3.1 Magnesium 1.9 Triglycerides 10/19/22 11:23 Anion Gap Estim Creat Clear Calc Estimated GFR POC Glucose 130 H Random Glucose Calcium Phosphorus Magnesium Triglycerides Assessment and Plan (1) Aspiration into respiratory tract: Status: Acute (2) Hypernatremia: Status: Acute Plan hospital d#21 62yo F admitted initially to ICU for pressor support for sepsis due to UTI. Transferred to floor then vomited, developed aspiration pneumonitis # aspiration pneumonitis/ recurrent aspiration - finished 10-day course of IV antibiotic on 10/09, but developed hypoxia; repeat chest x-ray 10/10 showed new infiltrate, therefore placed back on IV Zosyn 10/10- 10/15 - re-evaluated by speech therapy, recommended pureed and pudding thick liquids diet - decreased by mouth intake since; patient noted to have cough and secretions - given dysphagia + recurrent aspirations and decreased PO intake, pt placed on IV PPN. discussion with pt's guardian previously by Dr Cagle resulted in plan to proceed with PEG placement - high risk of requiring continued ventilation postop; no ICU bed available yesterday, so PEG tube has been postponed - continue IV PPN- order daily # acute hypoxic resp failure - treated 2x with ABX for aspiration pneumonia - frequent suctioning and close monitoring for aspiration with one-to-one feeding; keep head of bed elevated # hypernatremia, hypovolemic - resolved s/p D5W repletion # hypoK - repleted # hyperglycemia without DM - A1c 5.3, give correction-dose lispro # acute/chronic macrocytic anemia # folate deficiency - s/p 2u pRBCs 10/03/22 and 1u pRBCs 10/15/22 - replace folate # hx of PE - apixaban held 10/13 for PEG placement # schizoaffective disorder - continue valproate, quetiapine, mirtazapine # UTI, multiple - completed antibiotics # hypothyroidism - continue LT4 # fluid overload - likely due to hypoalbuminemia + hypotonic fluid given IV; given 1 dose HCTZ on 10/14 # multiple wounds - R posterior knee, unstageable: silver alginate - coccyx, stage 2: Zn oxide/silver alginate - B heels, unstageable: silver alginate - R posterior ankle, unstageable: Betadine paint - R hand, skin tear: Xeroform # VTE ppx: apixaban on hold # dispo: eventual return to [facility] for LTC In my clinical judgment, the patient requires continued inpatient hospitalization for the following reasons: PEG tube Time Spent With Patient Time: Total time managing care of this patient today _35___ minutes. Quality Stroke Does the patient have a stroke diagnosis?: No VTE Prior VTE?: No VTE Risk Level:: Medical - moderate - high VTE Device Contraindication: N/A - Device Ordered VTE Drug Contraindication: N/A - Med Ordered
--- NOTE | 2022-10-19 16:24 | P.CDIM_ITS ---
PROVIDER RESPONSE TEXT: To clarify, the appropriate diagnosis supported by the clinical indicators: Pressure ulcer: unstageable QUERY TEXT: PHYSICIAN'S DOCUMENTATION REQUEST Date of Query: 10/17/2022 01:58 PM EDT Patient Name: MIKO DAVID Admit Date: 09/29/2022 Dear Isidra Gee, A review of the medical record indicates additional documentation may be needed. Please review below and update the documentation accordingly. Clinical Indicators: The following diagnoses or signs and symptoms were noted in the patient record: Per Hospitalist Progress note 10/18/22: multiple wounds - R posterior knee, unstageable: silver alginate - coccyx, stage 2: Zn oxide/silver alginate - B heels, unstageable: silver alginate - R posterior ankle, unstageable: Betadine paint Based on the above, could you clarify the appropriate type of wounds that supports the above abnormal ities and additional evaluation, monitoring, and/or treatment rendered: Pressure ulcer Other type of wound, please specify Unable to determine Other (explain) Clinically unable to determine (explain) Thank you, Daisy Duenas RN Use of terms such as suspected, likely, concern for, or probable (associated with a specific diagnosi s that is being evaluated, monitored, or treated as if it exists) are acceptable and can be coded in the inpatient se tting, when documented at the time of discharge. Please use your independent medical judgment in providing your response. THIS QUERY IS PART OF THE PERMANENT MEDICAL RECORD
[2022-10-19 16:46] LABS: Glucose, Whole Blood 145 mg/dL (60-115)
[2022-10-19 19:39] LABS: Glucose, Whole Blood 125 mg/dL (60-115)
[2022-10-20] MEDS: Heparin Sodium,Porcine Flush 50 UNITS, 0.9 % Sodium Chloride Flush 5 ML IVFLUSH (02:12)
[2022-10-20] MEDS: Fat Emulsions 20% 250 ML 14 ML IVCONT ×2 (06:07→18:13)
[2022-10-20] MEDS: Levothyroxine Sodium 100 MCG/5 ML VIAL 50 MCG IVPUSH (06:07)
[2022-10-20 07:08] LABS: Hematocrit 28.3 % (37.0-47.0); Hemoglobin 9.1 g/dl (12.0-16.0); Mean Corpuscular HGB Conc 32.2 g/dl (31.0-35.0); Mean Corpuscular Hemoglobin 31.4 pg (27.0-33.0); Mean Corpuscular Volume 97.6 fL (80.0-98.0); Mean Platelet Volume 11.4 fL (9.4-12.3); Red Cell Distribution Width 16.2 % (11.0-16.0); White Blood Count 10.8 X10*3/uL (4.8-10.8)
[2022-10-20 07:21] LABS: Platelet Count 210 X10*3/uL (160-400)
[2022-10-20 07:23] LABS: Anion Gap 13 (12-20); Blood Urea Nitrogen 41 mg/dL (9-16); Calcium 10.7 mg/dL (8.4-10.2); Carbon Dioxide 25 mmol/L (22-29); Chloride 107 mmol/L (96-108); Creatinine Clr Calc Pharmacy 76.6; Estimated Glomerular Filt Rate > 60; Glucose Random 158 mg/dL (60-115); Phosphorus 3.3 mg/dL (2.7-4.5); Potassium 4.6 mmol/L (3.3-5.1); Sodium 140 mmol/L (135-145)
[2022-10-20 07:40] VITALS: BP 112/69; PULSE 96; RESP 20; TEMP 36.6; O2SAT 92
[2022-10-20 07:51] LABS: Glucose, Whole Blood 168 mg/dL (60-115)
[2022-10-20 08:31] LABS: Albumin Level 2.7 g/dL (3.5-5.0); Triglycerides 480 mg/dL
--- NOTE | 2022-10-20 09:05 | MHC.CM.PN ---
EMR REVIEWED, PT STILL AWAITING PEG TUBE PLACEMENT, [facility] UPDATED AND CM WILL CONT TO FOLLOW D/C NEEDS.
[2022-10-20] MEDS: Famotidine/PF 20 MG/2 ML VIAL IVPUSH (09:08)
[2022-10-20] MEDS: Insulin Lispro 100 UNIT/ML 3 ML VIAL SUBCUT ×2 (09:09→23:11)
[2022-10-20] MEDS: Zinc Oxide 20% Ointment 28.35 GM TUBE 1 APPL TOPICAL ×2 (09:19→23:11)
--- NOTE | 2022-10-20 10:54 | P.PNIM_ITS ---
Subjective Subjective Date of Service: 10/20/22 Interval History: Awaiting PEG, no change in status, confused baseline, screams and yells frequently Review of Systems Review of Systems: Yes Unobtainable due to mental status Physical Exam Vital Signs: Vital Signs: Last Vital Signs Temp 97.9 F 10/20/22 07:40 Pulse 96 10/20/22 07:40 Resp 20 10/20/22 07:40 BP 112/69 10/20/22 07:40 Pulse Ox 92 10/20/22 07:40 O2 Del Method Room Air 10/20/22 07:40 O2 Flow Rate 3 10/19/22 23:48 FiO2 21 10/02/22 07:00 BMI result Body Mass Index 32.1 Objective Data Active Medications Acetaminophen (Acetaminophen Supp 650 Mg Supp.Rect) 650 mg [place] Q6H PRN PRN Reason: Fever Last Admin: 10/07/22 01:59 Dose: 650 mg Documented By: GAGANOIC Heparin Sodium (Porcine) 50 (units/ Sodium Chloride 5 ml) 0 units IVFLUSH QSHIFT [facility] Last Admin: 10/20/22 09:09 Dose: Not Given Documented By: NANCY Non-Admin Reason: IV Running Divalproex Sodium (Divalproex Sodium Sprinkles 125 Mg ) 1,000 mg PO BID [facility] Last Admin: 10/20/22 09:09 Dose: Not Given Documented By: NANCY Non-Admin Reason: NPO Famotidine (Famotidine/Pf 20 Mg/2 Ml Vial) 20 mg IVPUSH DAILY [facility] Last Admin: 10/20/22 09:08 Dose: 20 mg Documented By: NANCY Folic Acid (Folic Acid 1 Mg Tablet) 1 mg PO DAILY [facility] Last Admin: 10/20/22 09:09 Dose: Not Given Documented By: NANCY Non-Admin Reason: NPO Glucose (Glucose Gel 15 Gm Gel..Gram.) 15 gm PO Q15M PRN; Protocol PRN Reason: per Hypoglycemia Standing Ord. Dextrose (D10) 250 mls @ 750 mls/hr IV Q15M PRN; Protocol PRN Reason: per Hypoglycemia Standing Ord. Magnesium Sulfate 10 meq/Potassium Phosphate 30 mmol/Potassium Acetate 30 meq/Amino Acids/Electrolytes/Dextrose 2,027.5 mls @ 85 mls/hr IVCONT DAILY@1800 [facility] Stop: 10/20/22 17:52 Last Infusion: 10/19/22 20:38 Dose: 85 mls/hr Documented By: TIEN Fat Emulsion Intravenous (Intralipid) 168 mls @ 14 mls/hr IVCONT BID@0600,1800 [facility] Stop: 10/20/22 17:59 Last Admin: 10/20/22 06:07 Dose: 14 mls/hr Documented By: MAHNAZ Insulin Human Lispro (Insulin Lispro 100 Unit/Ml 3 Ml Vial) 0 unit SUBCUT QIDACHS [facility]; Protocol Last Admin: 10/20/22 09:09 Dose: 2 unit Documented By: NANCY Levothyroxine Sodium (Levothyroxine Sodium 100 Mcg/5 Ml Vial) 50 mcg IVPUSH DAILY@0600 [facility] Last Admin: 10/20/22 06:07 Dose: 50 mcg Documented By: MAHNAZ Mirtazapine (Mirtazapine 7.5 Mg Tablet) 7.5 mg PO BEDTIME [facility] Last Admin: 10/19/22 20:19 Dose: Not Given Documented By: TIEN Non-Admin Reason: NPO Ondansetron HCl (Ondansetron Hcl 4 Mg/2 Ml Vial) 4 mg IVPUSH Q4H PRN PRN Reason: Nausea and Vomiting Last Admin: 10/05/22 14:18 Dose: 4 mg Documented By: MILTON Quetiapine Fumarate (Quetiapine Fumarate 50 Mg Tablet) 50 mg PO TID [facility] Last Admin: 10/20/22 09:10 Dose: Not Given Documented By: NANCY Non-Admin Reason: NPO Zinc Oxide (Zinc Oxide 20% Ointment 28.35 Gm Tube) 1 appl TOPICAL BID [facility]; Protocol Last Admin: 10/20/22 09:19 Dose: 1 appl Documented By: NANCY Labs 10/20/22 06:33 10/20/22 06:33 Labs: Laboratory Results - last 24 hr 10/19/22 10/19/22 10/19/22 11:23 16:22 19:24 MCV MCH MCHC RDW Plt Count MPV Absolute Nucleated RBC Nucleated RBC % (auto) Anion Gap Estim Creat Clear Calc Estimated GFR POC Glucose 130 H 145 H 125 H Random Glucose Calcium Phosphorus Magnesium Albumin Triglycerides 05/05/23 05/05/23 05/05/23 06:33 06:33 07:44 MCV 97.6 MCH 31.4 MCHC 32.2 RDW 16.2 H Plt Count 210 D MPV 11.4 Absolute Nucleated RBC 0.000 Nucleated RBC % (auto) 0.0 Anion Gap 13 Estim Creat Clear Calc 76.6 Estimated GFR > 60 POC Glucose 168 H Random Glucose 158 H Calcium 10.7 H Phosphorus 3.3 Magnesium 2.0 Albumin 2.7 L Triglycerides 480 Assessment and Plan (1) Aspiration into respiratory tract: Status: Acute (2) Hypernatremia: Status: Acute Plan hospital d#22 62yo F admitted initially to ICU for pressor support for sepsis due to UTI. Transferred to floor then vomited, developed aspiration pneumonitis # aspiration pneumonitis/ recurrent aspiration - finished 10-day course of IV antibiotic on 10/09, but developed hypoxia; repeat chest x-ray 10/10 showed new infiltrate, therefore placed back on IV Zosyn 10/10- 10/15 - re-evaluated by speech therapy, recommended pureed and pudding thick liquids diet - decreased by mouth intake since; patient noted to have cough and secretions - given dysphagia + recurrent aspirations and decreased PO intake, pt placed on IV PPN. discussion with pt's guardian previously by Dr Cagle resulted in plan to proceed with PEG placement - high risk of requiring continued ventilation postop; no ICU bed available yesterday, so PEG tube has been postponed - continue IV PPN- order daily # acute hypoxic resp failure - treated 2x with ABX for aspiration pneumonia - frequent suctioning and close monitoring for aspiration with one-to-one feeding; keep head of bed elevated # hypernatremia, hypovolemic - resolved s/p D5W repletion # hypoKalemia - repleted # hyperglycemia without DM - A1c 5.3, give correction-dose lispro # acute/chronic macrocytic anemia # folate deficiency - s/p 2u pRBCs 10/03/22 and 1u pRBCs 10/15/22 - replacing folate # hx of PE - apixaban held 10/13 for PEG placement # schizoaffective disorder - continue valproate, quetiapine, mirtazapine # UTI, multiple - completed antibiotics # hypothyroidism - continue LT4 # fluid overload - likely due to hypoalbuminemia + hypotonic fluid given IV; given 1 dose HCTZ on 10/14 # multiple wounds - R posterior knee, unstageable: silver alginate - coccyx, stage 2: Zn oxide/silver alginate - B heels, unstageable: silver alginate - R posterior ankle, unstageable: Betadine paint - R hand, skin tear: Xeroform # VTE ppx: apixaban on hold, lovenox until then # dispo: eventual return to [facility] for LTC In my clinical judgment, the patient requires continued inpatient hospitalizatio n for the following reasons: PEG tube Time Spent With Patient Time: Total time managing care of this patient today ____ minutes. Quality Stroke Does the patient have a stroke diagnosis?: No VTE Prior VTE?: No VTE Risk Level:: Medical - moderate - high VTE Device Contraindication: N/A - Device Ordered VTE Drug Contraindication: N/A - Med Ordered
[2022-10-20 12:00] VITALS: BP 137/65; PULSE 93; RESP 20; TEMP 36.6; O2SAT 100
[2022-10-20 12:04] LABS: Glucose, Whole Blood 133 mg/dL (60-115)
--- NOTE | 2022-10-20 12:54 | MHC.CLN ---
F/U REVIEWED LABS DISCUSSED WITH PHARMACY PT TO CONTINUE RECEIVING PPN D10AA4.25 AT 85ML/HR WITH 14ML OF 20% LIPIDS PROVIDES 1712 TOTAL KCALS (FROM FORMULA & LIPIDS; 23KCALS/KG), 87G PROTEIN (1.2G/KG) NOTED TRIGS 480 TODAY; REPEAT TRIG TOMORROW RECOMMEND HOLDING LIPIDS OVER WEEKEND R/T ELEVATED TRIG LEVELS REPLETE LYTES NEEDED FOLLOWING WITH TEAM-AWAITING PEG
[2022-10-20] MEDS: Enoxaparin Sodium 100 MG/ML SYRINGE 90 MG SUBCUT (15:11)
[2022-10-20 15:37] VITALS: BP 124/71; PULSE 95; RESP 16; TEMP 36.8; O2SAT 93
[2022-10-20 16:16] LABS: Glucose, Whole Blood 131 mg/dL (60-115)
--- NOTE | 2022-10-20 17:52 | PC.NURSE ---
Patient yelling out more frequent this shift. Lovenox restarted this afternoon per provider unsure of date for PEG tube placement at this time. Notified of increased yelling out from patient has been off oral meds since NPO for procedure. Provider did not want to allow for NPO except meds at this time remains npo strict. Will continue to monitor and report changes
[2022-10-20 19:55] VITALS: BP 118/62; PULSE 104; RESP 15; TEMP 37; O2SAT 91
[2022-10-20 20:24] LABS: Glucose, Whole Blood 156 mg/dL (60-115)
[2022-10-20 23:55] VITALS: BP 104/55; PULSE 99; RESP 20; TEMP 36.9; O2SAT 93
[2022-10-21] MEDS: Enoxaparin Sodium 100 MG/ML SYRINGE 90 MG SUBCUT ×2 (03:29→14:59)
[2022-10-21 04:00] VITALS: BP 101/52; PULSE 97; RESP 20; TEMP 37.2; O2SAT 92
[2022-10-21 07:15] VITALS: BP 124/53; PULSE 98; RESP 20; TEMP 37.2; O2SAT 92
[2022-10-21 07:40] LABS: Glucose, Whole Blood 150 mg/dL (60-115)
[2022-10-21] MEDS: Famotidine/PF 20 MG/2 ML VIAL IVPUSH (07:47)
[2022-10-21] MEDS: Folic Acid 1 MG TABLET PO (07:47)
[2022-10-21] MEDS: Levothyroxine Sodium 100 MCG/5 ML VIAL 50 MCG IVPUSH (07:47)
[2022-10-21] MEDS: Fat Emulsions 20% 250 ML 14 ML IVCONT (07:47)
[2022-10-21] MEDS: QUEtiapine Fumarate 50 MG TABLET PO ×3 (07:47→23:00)
[2022-10-21] MEDS: Divalproex Sodium Sprinkles 125 MG CAP.DR.SPR 1000 MG PO ×2 (07:48→22:59)
[2022-10-21] MEDS: Heparin Sodium,Porcine Flush 50 UNITS, 0.9 % Sodium Chloride Flush 5 ML IVFLUSH (07:48)
[2022-10-21] MEDS: Zinc Oxide 20% Ointment 28.35 GM TUBE 1 APPL TOPICAL ×2 (07:49→23:08)
--- NOTE | 2022-10-21 09:45 | HO.PM.IMPN ---
Subjective Subjective Date of Service: 10/21/22 Interval History: no significant nursing events overnight. Patient nonverbal Review of Systems Review of Systems: Yes Unobtainable due to mental status Physical Exam Vital Signs: Vital Signs: Last Vital Signs Temp 98.9 F 10/21/22 07:15 Pulse 98 10/21/22 07:15 Resp 20 10/21/22 07:15 BP 124/53 L 10/21/22 07:15 Pulse Ox 92 10/21/22 07:15 O2 Del Method Room Air 10/21/22 07:15 O2 Flow Rate 3 10/19/22 23:48 FiO2 21 10/02/22 07:00 BMI result Body Mass Index 32.1 Const: Other: Gen:? Awake, making noises, no resp distress Neck: supple Lungs:? Bilateral coarse breath sound Heart:? Tachy regular rate and rhythm Abd: soft, non-tender, non-distended Ext:? Bilateral upper and lower extremity edema Skin: warm/well-perfused Neuro: alert, nonverbal, moving all extremities Psych: impaired insight Resp: Other: Diffuse coarse rhonchi with scattered expiratory wheezes throughout Cardio: Other: No S4; positive S1-S2; no S3 murmurs rubs or gallops Extrem: Other: No edema Objective Data Active Medications Acetaminophen (Acetaminophen Supp 650 Mg Supp.Rect) 650 mg [place] Q6H PRN PRN Reason: Fever Last Admin: 10/07/22 01:59 Dose: 650 mg Documented By: SUJEY Heparin Sodium (Porcine) 50 (units/ Sodium Chloride 5 ml) 0 units IVFLUSH QSHIFT [facility] Last Admin: 10/21/22 07:48 Dose: 50 unit Documented By: NISHI Divalproex Sodium (Divalproex Sodium Sprinkles 125 Mg ) 1,000 mg PO BID [facility] Last Admin: 10/21/22 07:48 Dose: 1,000 mg Documented By: NISHI Enoxaparin Sodium (Enoxaparin Sodium 100 Mg/Ml Syringe) 90 mg SUBCUT Q12H [facility] Last Admin: 10/21/22 03:29 Dose: 90 mg Documented By: SARMAD Famotidine (Famotidine/Pf 20 Mg/2 Ml Vial) 20 mg IVPUSH DAILY [facility] Last Admin: 10/21/22 07:47 Dose: 20 mg Documented By: NISHI Folic Acid (Folic Acid 1 Mg Tablet) 1 mg PO DAILY [facility] Last Admin: 10/21/22 07:47 Dose: 1 mg Documented By: NISHI Glucose (Glucose Gel 15 Gm Gel..Gram.) 15 gm PO Q15M PRN; Protocol PRN Reason: per Hypoglycemia Standing Ord. Dextrose (D10) 250 mls @ 750 mls/hr IV Q15M PRN; Protocol PRN Reason: per Hypoglycemia Standing Ord. Magnesium Sulfate 10 meq/Potassium Phosphate 30 mmol/Potassium Acetate 20 meq/Multivitamins 10 ml/ Trace Metals 1 ml/ Amino Acids/Electrolytes/Dextrose 2,033.5 mls @ 85 mls/hr IVCONT DAILY@1800 [facility] Stop: 10/21/22 17:56 Last Admin: 10/20/22 18:13 Dose: 85 mls/hr Documented By: NANCY Fat Emulsion Intravenous (Intralipid) 168 mls @ 14 mls/hr IVCONT BID@0600,1800 [facility] Stop: 10/21/22 17:59 Last Admin: 10/21/22 07:47 Dose: 14 mls/hr Documented By: NISHI Insulin Human Lispro (Insulin Lispro 100 Unit/Ml 3 Ml Vial) 0 unit SUBCUT QIDACHS [facility]; Protocol Last Admin: 10/21/22 07:43 Dose: Not Given Documented By: NISHI Non-Admin Reason: No Insulin Coverage Comments: poc 150 Levothyroxine Sodium (Levothyroxine Sodium 100 Mcg/5 Ml Vial) 50 mcg IVPUSH DAILY@0600 [facility] Last Admin: 10/21/22 07:47 Dose: 50 mcg Documented By: NISHI Mirtazapine (Mirtazapine 7.5 Mg Tablet) 7.5 mg PO BEDTIME [facility] Last Admin: 10/20/22 23:10 Dose: Not Given Documented By: SARMAD Non-Admin Reason: NPODavion [place] aware Ondansetron HCl (Ondansetron Hcl 4 Mg/2 Ml Vial) 4 mg IVPUSH Q4H PRN PRN Reason: Nausea and Vomiting Last Admin: 10/05/22 14:18 Dose: 4 mg Documented By: MILTON Quetiapine Fumarate (Quetiapine Fumarate 50 Mg Tablet) 50 mg PO TID [facility] Last Admin: 10/21/22 07:47 Dose: 50 mg Documented By: NISHI Zinc Oxide (Zinc Oxide 20% Ointment 28.35 Gm Tube) 1 appl TOPICAL BID [facility]; Protocol Last Admin: 10/21/22 07:49 Dose: 1 appl Documented By: NISHI Labs 10/20/22 06:33 10/20/22 06:33 Labs: Laboratory Results - last 24 hr 10/20/22 10/20/22 10/20/22 12:00 15:56 19:39 POC Glucose 133 H 131 H 156 H 10/21/22 07:13 POC Glucose 150 H Assessment and Plan (1) Aspiration into respiratory tract: Status: Acute Plan 62yo F admitted initially to ICU for pressor support for sepsis due to UTI. Transferred to floor then vomited, developed aspiration pneumonitis # aspiration pneumonitis/ recurrent aspiration - finished 10-day course of IV antibiotic on 10/09, but developed hypoxia; repeat chest x-ray 10/10 showed new infiltrate, therefore placed back on IV Zosyn 10/10-10/15 - re-evaluated by speech therapy, recommended pureed and pudding thick liquids diet - decreased by mouth intake since; patient noted to have cough and secretions - given dysphagia + recurrent aspirations and decreased PO intake, pt placed on IV PPN. discussion with pt's guardian previously by Dr Cagle resulted in plan to proceed with PEG placement - high risk of requiring continued ventilation postop; no ICU bed available, so PEG tube has been postponed - continue IV PPN- order daily # acute hypoxic resp failure - treated 2x with ABX for aspiration pneumonia - frequent suctioning and close monitoring for aspiration with one-to-one feeding; keep head of bed elevated # hypernatremia, hypovolemic - resolved s/p D5W repletion # hypoKalemia - repleted # hyperglycemia without DM - A1c 5.3, give correction-dose lispro # acute/chronic macrocytic anemia # folate deficiency - s/p 2u pRBCs 10/03/22 and 1u pRBCs 10/15/22 - replacing folate # hx of PE - apixaban held 10/13 for PEG placement ; currently on therapeutic lovenox # schizoaffective disorder - continue valproate, quetiapine, mirtazapine # UTI, multiple - completed antibiotics # hypothyroidism - continue LT4 # fluid overload - likely due to hypoalbuminemia + hypotonic fluid given IV; given 1 dose HCTZ on 10/14 # multiple wounds - R posterior knee, unstageable: silver alginate - coccyx, stage 2: Zn oxide/silver alginate - B heels, unstageable: silver alginate - R posterior ankle, unstageable: Betadine paint - R hand, skin tear: Xeroform # VTE ppx: apixaban on hold, lovenox until then # dispo: eventual return to [facility] for LTC In my clinical judgment, the patient requires continued inpatient hospitalization for the following reasons: PEG tube Time Spent With Patient Time: Total time managing care of this patient today ____ minutes. Quality Stroke Does the patient have a stroke diagnosis?: No VTE Prior VTE?: No VTE Risk Level:: Medical - moderate - high VTE Device Contraindication: N/A - Device Ordered VTE Drug Contraindication: N/A - Med Ordered
[2022-10-21 11:17] LABS: Glucose, Whole Blood 149 mg/dL (60-115)
[2022-10-21 11:27] VITALS: BP 117/54; PULSE 99; RESP 20; TEMP 37.1; O2SAT 100
[2022-10-21 13:33] LABS: Albumin Level 2.5 g/dL (3.5-5.0); Anion Gap 13 (12-20); Blood Urea Nitrogen 44 mg/dL (9-16); Calcium 9.9 mg/dL (8.4-10.2); Carbon Dioxide 23 mmol/L (22-29); Chloride 106 mmol/L (96-108); Estimated Glomerular Filt Rate > 60; Glucose Random 148 mg/dL (60-115); Magnesium 1.9 mg/dL (1.6-2.6); Phosphorus 3.9 mg/dL (2.7-4.5); Potassium 4.5 mmol/L (3.3-5.1); Sodium 137 mmol/L (135-145); Triglycerides 351 mg/dL
[2022-10-21 15:31] LABS: Glucose, Whole Blood 137 mg/dL (60-115)
[2022-10-21 15:59] VITALS: BP 89/53; PULSE 99; RESP 19; TEMP 36; O2SAT 93
[2022-10-21 20:00] VITALS: BP 108/64; PULSE 95; RESP 18; TEMP 36.2; O2SAT 95
[2022-10-21 21:16] LABS: Glucose, Whole Blood 131 mg/dL (60-115)
[2022-10-21] MEDS: Mirtazapine 7.5 MG TABLET PO (23:00)
[2022-10-21 23:08] VITALS: BP 105/53; PULSE 96; RESP 18; TEMP 37.6; O2SAT 95
[2022-10-22] MEDS: Fat Emulsions 20% 250 ML 14 ML IVCONT ×2 (02:32→18:24)
[2022-10-22] MEDS: Enoxaparin Sodium 100 MG/ML SYRINGE 90 MG SUBCUT ×2 (02:54→16:10)
[2022-10-22 04:00] VITALS: BP 115/58; PULSE 95; RESP 18; TEMP 36.4; O2SAT 95
[2022-10-22 07:01] LABS: Anion Gap 11 (12-20); Blood Urea Nitrogen 47 mg/dL (9-16); Calcium 9.7 mg/dL (8.4-10.2); Carbon Dioxide 23 mmol/L (22-29); Chloride 107 mmol/L (96-108); Creatinine Clr Calc Pharmacy 80.2; Estimated Glomerular Filt Rate > 60; Glucose Random 142 mg/dL (60-115); Potassium 4.4 mmol/L (3.3-5.1); Sodium 137 mmol/L (135-145)
[2022-10-22 07:48] VITALS: BP 121/58; PULSE 93; RESP 20; TEMP 37.2; O2SAT 98
[2022-10-22 08:04] LABS: Glucose, Whole Blood 145 mg/dL (60-115)
[2022-10-22] MEDS: Divalproex Sodium Sprinkles 125 MG CAP.DR.SPR 1000 MG PO ×2 (09:13→21:29)
[2022-10-22] MEDS: Famotidine/PF 20 MG/2 ML VIAL IVPUSH (09:13)
[2022-10-22] MEDS: Folic Acid 1 MG TABLET PO (09:13)
[2022-10-22] MEDS: QUEtiapine Fumarate 50 MG TABLET PO ×3 (09:13→21:29)
[2022-10-22] MEDS: Zinc Oxide 20% Ointment 28.35 GM TUBE 1 APPL TOPICAL ×2 (09:15→21:46)
--- NOTE | 2022-10-22 10:15 | HO.PM.IMPN ---
Subjective Subjective Date of Service: 10/22/22 Interval History: no significant nursing events overnight. Patient nonverbal and on 3L oxygen Review of Systems Unable to obtain Review of Systems: Yes Unobtainable due to mental status Physical Exam Vital Signs: Vital Signs: Last Vital Signs Temp 98.9 F 10/22/22 07:48 Pulse 93 10/22/22 07:48 Resp 20 10/22/22 07:48 BP 121/58 L 10/22/22 07:48 Pulse Ox 98 10/22/22 07:48 O2 Del Method Oxymask 10/22/22 07:48 O2 Flow Rate 3 10/22/22 07:48 FiO2 21 10/02/22 07:00 BMI result Body Mass Index 32.1 Const: Other: Gen:? Awake, making noises, no resp distress Neck: supple Lungs:? Bilateral coarse breath sound Heart:? Tachy regular rate and rhythm Abd: soft, non-tender, non-distended Ext:? Bilateral upper and lower extremity edema Skin: warm/well-perfused Neuro: alert, nonverbal, moving all extremities Psych: impaired insight Resp: Other: Diffuse coarse rhonchi with scattered expiratory wheezes throughout Cardio: Other: No S4; positive S1-S2; no S3 murmurs rubs or gallops Extrem: Other: No edema Objective Data Active Medications Acetaminophen (Acetaminophen Supp 650 Mg Supp.Rect) 650 mg [place] Q6H PRN PRN Reason: Fever Last Admin: 10/07/22 01:59 Dose: 650 mg Documented By: GAGANOIC Heparin Sodium (Porcine) 50 (units/ Sodium Chloride 5 ml) 0 units IVFLUSH QSHIFT [facility] Last Admin: 10/22/22 09:13 Dose: Not Given Documented By: NISHI Non-Admin Reason: IV Running Divalproex Sodium (Divalproex Sodium Sprinkles 125 Mg ) 1,000 mg PO BID [facility] Last Admin: 10/22/22 09:13 Dose: 1,000 mg Documented By: NISHI Enoxaparin Sodium (Enoxaparin Sodium 100 Mg/Ml Syringe) 90 mg SUBCUT Q12H [facility] Last Admin: 10/22/22 02:54 Dose: 90 mg Documented By: SARMAD Famotidine (Famotidine/Pf 20 Mg/2 Ml Vial) 20 mg IVPUSH DAILY [facility] Last Admin: 10/22/22 09:13 Dose: 20 mg Documented By: NISHI Folic Acid (Folic Acid 1 Mg Tablet) 1 mg PO DAILY [facility] Last Admin: 10/22/22 09:13 Dose: 1 mg Documented By: NISHI Glucose (Glucose Gel 15 Gm Gel..Gram.) 15 gm PO Q15M PRN; Protocol PRN Reason: per Hypoglycemia Standing Ord. Dextrose (D10) 250 mls @ 750 mls/hr IV Q15M PRN; Protocol PRN Reason: per Hypoglycemia Standing Ord. Magnesium Sulfate 10 meq/Potassium Phosphate 30 mmol/Sodium Acetate 40 meq/Potassium Acetate 20 meq/Multivitamins 10 ml/ Trace Metals 1 ml/ Amino Acids/Electrolytes/Dextrose 2,040 mls @ 85 mls/hr IVCONT DAILY@1800 [facility] Stop: 10/22/22 17:59 Last Admin: 10/21/22 18:53 Dose: 85 mls/hr Documented By: NISHI Fat Emulsion Intravenous (Intralipid) 168 mls @ 14 mls/hr IVCONT BID@0600,1800 [facility] Stop: 10/22/22 17:59 Last Admin: 10/22/22 09:15 Dose: Not Given Documented By: NISHI Non-Admin Reason: IV Running Comments: medication currently running with 6hr and 23 mins left on current bag. Insulin Human Lispro (Insulin Lispro 100 Unit/Ml 3 Ml Vial) 0 unit SUBCUT QIDACHS [facility]; Protocol Last Admin: 10/22/22 08:10 Dose: Not Given Documented By: NISHI Non-Admin Reason: No Insulin Coverage Levothyroxine Sodium (Levothyroxine Sodium 100 Mcg/5 Ml Vial) 50 mcg IVPUSH DAILY@0600 [facility] Last Admin: 10/21/22 07:47 Dose: 50 mcg Documented By: NISHI Mirtazapine (Mirtazapine 7.5 Mg Tablet) 7.5 mg PO BEDTIME [facility] Last Admin: 10/21/22 23:00 Dose: 7.5 mg Documented By: SARMAD Ondansetron HCl (Ondansetron Hcl 4 Mg/2 Ml Vial) 4 mg IVPUSH Q4H PRN PRN Reason: Nausea and Vomiting Last Admin: 10/05/22 14:18 Dose: 4 mg Documented By: MILTON Quetiapine Fumarate (Quetiapine Fumarate 50 Mg Tablet) 50 mg PO TID [facility] Last Admin: 10/22/22 09:13 Dose: 50 mg Documented By: NISHI Zinc Oxide (Zinc Oxide 20% Ointment 28.35 Gm Tube) 1 appl TOPICAL BID [facility]; Protocol Last Admin: 10/22/22 09:15 Dose: 1 appl Documented By: NISHI Labs 10/20/22 06:33 10/22/22 05:47 Labs: Laboratory Results - last 24 hr 10/21/22 10/21/22 10/21/22 11:11 12:53 15:25 Anion Gap 13 Estim Creat Clear Calc 83.0 Estimated GFR > 60 POC Glucose 149 H 137 H Random Glucose 148 H Calcium 9.9 D Phosphorus 3.9 Magnesium 1.9 Albumin 2.5 L Triglycerides 351 10/21/22 10/22/22 10/22/22 21:11 05:47 07:55 Anion Gap 11 L Estim Creat Clear Calc 80.2 Estimated GFR > 60 POC Glucose 131 H 145 H Random Glucose 142 H Calcium 9.7 Phosphorus Magnesium Albumin Triglycerides Assessment and Plan (1) Aspiration into respiratory tract: Status: Acute Plan 62yo F admitted initially to ICU for pressor support for sepsis due to UTI. Transferred to floor then vomited, developed aspiration pneumonitis # aspiration pneumonitis/ recurrent aspiration - finished 10-day course of IV antibiotic on 10/09, but developed hypoxia; repeat chest x-ray 10/10 showed new infiltrate, therefore placed back on IV Zosyn 10/10-10/15 - re-evaluated by speech therapy, recommended pureed and pudding thick liquids diet - decreased by mouth intake since; patient noted to have cough and secretions - given dysphagia + recurrent aspirations and decreased PO intake, pt placed on IV PPN. discussion with pt's guardian resulted in plan to proceed with PEG placement - high risk of requiring continued ventilation postop; no ICU bed available, so PEG tube has been postponed ; surgery on board - continue IV PPN- order daily # acute hypoxic resp failure - treated 2x with ABX for aspiration pneumonia - frequent suctioning and close monitoring for aspiration with one-to-one feeding; keep head of bed elevated # hypernatremia, hypovolemic - resolved s/p D5W repletion # hypoKalemia - repleted # hyperglycemia without DM - A1c 5.3, give correction-dose lispro # acute/chronic macrocytic anemia # folate deficiency - s/p 2u pRBCs 10/03/22 and 1u pRBCs 10/15/22 - replacing folate # hx of PE - apixaban held 10/13 for PEG placement ; currently on therapeutic lovenox # schizoaffective disorder - continue valproate, quetiapine, mirtazapine # UTI, multiple - completed antibiotics # hypothyroidism - continue LT4 # fluid overload - likely due to hypoalbuminemia + hypotonic fluid given IV; given 1 dose HCTZ on 10/14 # multiple wounds - R posterior knee, unstageable: silver alginate - coccyx, stage 2: Zn oxide/silver alginate - B heels, unstageable: silver alginate - R posterior ankle, unstageable: Betadine paint - R hand, skin tear: Xeroform # VTE ppx: apixaban on hold, lovenox until then # dispo: eventual return to [facility] for LTC In my clinical judgment, the patient requires continued inpatient hospitalization for the following reasons: PEG tube Time Spent With Patient Time: Total time managing care of this patient today ____ minutes. Quality Stroke Does the patient have a stroke diagnosis?: No VTE Prior VTE?: No VTE Risk Level:: Medical - moderate - high VTE Device Contraindication: N/A - Device Ordered VTE Drug Contraindication: N/A - Med Ordered
[2022-10-22 11:17] VITALS: BP 124/57; PULSE 97; RESP 20; TEMP 37; O2SAT 92
[2022-10-22 11:29] LABS: Albumin Level 2.5 g/dL (3.5-5.0); Magnesium 2.1 mg/dL (1.6-2.6); Phosphorus 4.9 mg/dL (2.7-4.5)
[2022-10-22 11:41] LABS: Glucose, Whole Blood 137 mg/dL (60-115)
[2022-10-22 15:47] VITALS: BP 117/66; PULSE 94; RESP 21; TEMP 36.4; O2SAT 94
[2022-10-22 16:26] LABS: Glucose, Whole Blood 132 mg/dL (60-115)
[2022-10-22 19:59] VITALS: BP 105/63; PULSE 94; RESP 20; TEMP 36.7; O2SAT 92
[2022-10-22 21:00] LABS: Glucose, Whole Blood 155 mg/dL (60-115)
[2022-10-22] MEDS: Mirtazapine 7.5 MG TABLET PO (21:29)
[2022-10-22] MEDS: Insulin Lispro 100 UNIT/ML 3 ML VIAL SUBCUT (21:36)
[2022-10-22 23:36] VITALS: BP 116/52; PULSE 87; RESP 18; TEMP 36.7; O2SAT 92
[2022-10-23] VITALS (8 sets, daily range): BP systolic 107–127; BP diastolic 53–59; PULSE 88–100; RESP 16–20; TEMP 36.2–37.1; O2SAT 91–97
[2022-10-23] MEDS: Enoxaparin Sodium 100 MG/ML SYRINGE 90 MG SUBCUT ×2 (02:24→13:57)
[2022-10-23] MEDS: Levothyroxine Sodium 100 MCG/5 ML VIAL 50 MCG IVPUSH (05:06)
[2022-10-23] MEDS: Fat Emulsions 20% 250 ML 14 ML IVCONT ×2 (05:33→18:11)
[2022-10-23 07:12] LABS: Hematocrit 26.9 % (37.0-47.0); Hemoglobin 8.4 g/dl (12.0-16.0); Mean Corpuscular HGB Conc 31.2 g/dl (31.0-35.0); Mean Corpuscular Hemoglobin 30.9 pg (27.0-33.0); Mean Corpuscular Volume 98.9 fL (80.0-98.0); Mean Platelet Volume 12.4 fL (9.4-12.3); Platelet Count 308 X10*3/uL (160-400); Red Blood Count 2.72 X10*6/uL (4.20-5.50); Red Cell Distribution Width 17.2 % (11.0-16.0); White Blood Count 8.3 X10*3/uL (4.8-10.8)
[2022-10-23 07:33] LABS: Anion Gap 10 (12-20); Blood Urea Nitrogen 54 mg/dL (9-16); Calcium 9.7 mg/dL (8.4-10.2); Carbon Dioxide 24 mmol/L (22-29); Chloride 107 mmol/L (96-108); Creatinine Clr Calc Pharmacy 73.4; Estimated Glomerular Filt Rate 59; Glucose Random 139 mg/dL (60-115); Potassium 3.9 mmol/L (3.3-5.1); Sodium 137 mmol/L (135-145)
[2022-10-23 07:37] LABS: Band Neutrophils Percent 3 % (3-5); Basophils Abs Manual 0.1 X10*3/uL (0.0-0.2); Basophils Percent Manual 1 % (0-2); Eosinophils Absolute Manual 0.2 X10*3/uL (0.0-0.4); Eosinophils Percent Manual 2 % (0-4); Lymphocytes Absolute Manual 3.1 X10*3/uL (1.2-4.9); Lymphocytes Percent Manual 37 % (20-40); Metamyelocytes Absolute 0.3 X10*3/uL; Metamyelocytes Percent 4 %; Monocytes Absolute Manual 0.5 X10*3/uL (0.1-1.2); Monocytes Percent Manual 6 % (2-11); Neutrophils Absolute Manual 4.2 X10*3/uL (2.0-8.3); Neutrophils Percent Manual 47 % (45-73)
[2022-10-23 07:38] LABS: Hypochromasia 1+ (5-14) /OIF; Platelet Estimate NORMAL (NORMAL); Platelet Morphology Comment NORMAL; Polychromasia 1+ (0-2) /OIF; RBC Morphology NOTED
[2022-10-23 07:57] LABS: Glucose, Whole Blood 138 mg/dL (60-115)
[2022-10-23 09:19] LABS: Albumin Level 2.5 g/dL (3.5-5.0); Magnesium 2.5 mg/dL (1.6-2.6); Triglycerides 242 mg/dL
[2022-10-23] MEDS: Famotidine/PF 20 MG/2 ML VIAL IVPUSH (09:24)
[2022-10-23] MEDS: Divalproex Sodium Sprinkles 125 MG CAP.DR.SPR 1000 MG PO ×2 (09:24→22:18)
[2022-10-23] MEDS: QUEtiapine Fumarate 50 MG TABLET PO ×3 (09:24→22:23)
[2022-10-23] MEDS: Folic Acid 1 MG TABLET PO (09:24)
[2022-10-23] MEDS: Zinc Oxide 20% Ointment 28.35 GM TUBE 1 APPL TOPICAL ×2 (09:25→22:16)
--- NOTE | 2022-10-23 11:02 | MHC.CLN ---
F/U REVIEWED LABS DISCUSSED WITH PHARMACY PT TO CONTINUE RECEIVING PPN D10AA4.25 AT 85ML/HR WITH 14ML OF 20% LIPIDS PROVIDES 1712 TOTAL KCALS (FROM FORMULA & LIPIDS; 23KCALS/KG), 87G PROTEIN (1.2G/KG) REPEAT TRIG 351 (10/21/22) REPLETE LYTES NEEDED
--- NOTE | 2022-10-23 11:40 | HO.PM.IMPN ---
Subjective Subjective Date of Service: 10/23/22 Interval History: f/u aspiration and being eval for PEG no new isues Physical Exam Vital Signs: Vital Signs: Last Vital Signs Temp 98.8 F 10/23/22 11:05 Pulse 100 10/23/22 11:05 Resp 20 10/23/22 11:05 BP 107/58 L 10/23/22 11:05 Pulse Ox 91 L 10/23/22 11:05 O2 Del Method Room Air 10/23/22 11:05 O2 Flow Rate 3 10/22/22 07:48 FiO2 21 10/02/22 07:00 BMI result Body Mass Index 32.1 Const: Other: Gen:? Awake, making noises, no resp distress Neck: supple Lungs:? Bilateral coarse breath sound Heart:? Tachy regular rate and rhythm Abd: soft, non-tender, non-distended Ext:? Bilateral upper and lower extremity edema Skin: warm/well-perfused Neuro: alert, nonverbal, moving all extremities Psych: impaired insight Objective Data Active Medications Acetaminophen (Acetaminophen Supp 650 Mg Supp.Rect) 650 mg [place] Q6H PRN PRN Reason: Fever Last Admin: 10/07/22 01:59 Dose: 650 mg Documented By: ANTOIC Heparin Sodium (Porcine) 50 (units/ Sodium Chloride 5 ml) 0 units IVFLUSH QSHIFT [facility] Last Admin: 10/23/22 09:24 Dose: Not Given Documented By: DOT Non-Admin Reason: iv running Divalproex Sodium (Divalproex Sodium Sprinkles 125 Mg ) 1,000 mg PO BID [facility] Last Admin: 10/23/22 09:24 Dose: 1,000 mg Documented By: DOT Enoxaparin Sodium (Enoxaparin Sodium 100 Mg/Ml Syringe) 90 mg SUBCUT Q12H [facility] Last Admin: 10/23/22 02:24 Dose: 90 mg Documented By: PRASANTH Famotidine (Famotidine/Pf 20 Mg/2 Ml Vial) 20 mg IVPUSH DAILY [facility] Last Admin: 10/23/22 09:24 Dose: 20 mg Documented By: DOT Folic Acid (Folic Acid 1 Mg Tablet) 1 mg PO DAILY [facility] Last Admin: 10/23/22 09:24 Dose: 1 mg Documented By: DOT Glucose (Glucose Gel 15 Gm Gel..Gram.) 15 gm PO Q15M PRN; Protocol PRN Reason: per Hypoglycemia Standing Ord. Dextrose (D10) 250 mls @ 750 mls/hr IV Q15M PRN; Protocol PRN Reason: per Hypoglycemia Standing Ord. Magnesium Sulfate 10 meq/Sodium Acetate 40 meq/Potassium Acetate 20 meq/Multivitamins 10 ml/ Trace Metals 1 ml/ Amino Acids/Electrolytes/Dextrose 2,040 mls @ 85 mls/hr IVCONT DAILY@1800 [facility] Stop: 10/23/22 17:59 Last Admin: 10/22/22 18:39 Dose: 85 mls/hr Documented By: NISHI Fat Emulsion Intravenous (Intralipid) 168 mls @ 14 mls/hr IVCONT BID@0600,1800 [facility] Stop: 10/23/22 17:59 Last Admin: 10/23/22 09:26 Dose: Not Given Documented By: DOT Non-Admin Reason: given by previous nurse, she forgot to scan Magnesium Sulfate 5 meq/Potassium Phosphate 10 mmol/Sodium Acetate 40 meq/Potassium Acetate 20 meq/Multivitamins 10 ml/ Trace Metals 1 ml/ Amino Acids/Electrolytes/Dextrose 2,045.5333 mls @ 85 mls/hr IVCONT DAILY@1800 [facility] Stop: 10/24/22 17:59 Fat Emulsion Intravenous (Intralipid) 168 mls @ 14 mls/hr IVCONT BID@0600,1800 [facility] Stop: 10/24/22 17:59 Insulin Human Lispro (Insulin Lispro 100 Unit/Ml 3 Ml Vial) 0 unit SUBCUT QIDACHS [facility]; Protocol Last Admin: 10/23/22 08:00 Dose: Not Given Documented By: DOT Non-Admin Reason: No Insulin Coverage Levothyroxine Sodium (Levothyroxine Sodium 100 Mcg/5 Ml Vial) 50 mcg IVPUSH DAILY@0600 [facility] Last Admin: 10/23/22 05:06 Dose: 50 mcg Documented By: PRASANTH Mirtazapine (Mirtazapine 7.5 Mg Tablet) 7.5 mg PO BEDTIME [facility] Last Admin: 10/22/22 21:29 Dose: 7.5 mg Documented By: PRASANTH Ondansetron HCl (Ondansetron Hcl 4 Mg/2 Ml Vial) 4 mg IVPUSH Q4H PRN PRN Reason: Nausea and Vomiting Last Admin: 10/05/22 14:18 Dose: 4 mg Documented By: MILTON Quetiapine Fumarate (Quetiapine Fumarate 50 Mg Tablet) 50 mg PO TID [facility] Last Admin: 10/23/22 09:24 Dose: 50 mg Documented By: DOT Zinc Oxide (Zinc Oxide 20% Ointment 28.35 Gm Tube) 1 appl TOPICAL BID [facility]; Protocol Last Admin: 10/23/22 09:25 Dose: 1 appl Documented By: DOT Labs 10/23/22 06:48 10/23/22 06:48 Labs: Laboratory Results - last 24 hr 10/22/22 10/22/22 10/22/22 11:22 16:04 20:25 MCV MCH MCHC RDW Plt Count MPV Immature Gran % (Auto) Neut % (Auto) Lymph % (Auto) [place] % (Auto) Eos % (Auto) Baso % (Auto) Lymph # (Auto) [place] # (Auto) Eos # (Auto) Baso # (Auto) Abs Immat Gran (auto) Absolute Neuts (auto) Absolute Nucleated RBC Nucleated RBC % (auto) Neutrophils % (Manual) Band Neutrophils % Lymphocytes % (Manual) Monocytes % (Manual) Eosinophils % (Manual) Basophils % (Manual) Metamyelocytes % Abs Neuts (Manual) Lymphocytes # (Manual) Monocytes # (Manual) Eosinophils # (Manual) Basophils # (Manual) Metamyelocytes # Platelet Estimate Plt Morphology Comment RBC Morphology Polychromasia Hypochromasia Anion Gap Estim Creat Clear Calc Estimated GFR POC Glucose 137 H 132 H 155 H Random Glucose Calcium Phosphorus Magnesium Albumin Triglycerides 10/23/22 10/23/22 10/23/22 06:48 06:48 07:31 MCV 98.9 H MCH 30.9 MCHC 31.2 RDW 17.2 H Plt Count 308 D MPV 12.4 H Immature Gran % (Auto) Cancelled Neut % (Auto) Cancelled Lymph % (Auto) Cancelled [place] % (Auto) Cancelled Eos % (Auto) Cancelled Baso % (Auto) Cancelled Lymph # (Auto) Cancelled [place] # (Auto) Cancelled Eos # (Auto) Cancelled Baso # (Auto) Cancelled Abs Immat Gran (auto) Cancelled Absolute Neuts (auto) Cancelled Absolute Nucleated RBC 0.000 Nucleated RBC % (auto) 0.0 Neutrophils % (Manual) 47 Band Neutrophils % 3 Lymphocytes % (Manual) 37 Monocytes % (Manual) 6 Eosinophils % (Manual) 2 Basophils % (Manual) 1 Metamyelocytes % 4 Abs Neuts (Manual) 4.2 Lymphocytes # (Manual) 3.1 Monocytes # (Manual) 0.5 Eosinophils # (Manual) 0.2 Basophils # (Manual) 0.1 Metamyelocytes # 0.3 Platelet Estimate NORMAL Plt Morphology Comment NORMAL RBC Morphology NOTED Polychromasia 1+ (0-2) Hypochromasia 1+ (5-14) Anion Gap 10 L Estim Creat Clear Calc 73.4 Estimated GFR 59 POC Glucose 138 H Random Glucose 139 H Calcium 9.7 Phosphorus 4.0 Magnesium 2.5 Albumin 2.5 L Triglycerides 242 Assessment and Plan (1) Aspiration into respiratory tract: Status: Acute Plan 62yo F admitted initially to ICU for pressor support for sepsis due to UTI. Transferred to floor then vomited, developed aspiration pneumonitis # aspiration pneumonitis/ recurrent aspiration - finished 10-day course of IV antibiotic on 10/09, but developed hypoxia; repeat chest x-ray 10/10 showed new infiltrate, therefore placed back on IV Zosyn 10/10-10/15 - re-evaluated by speech therapy, and will required MBSS - NPO at present - given dysphagia + recurrent aspirations and decreased PO intake, pt placed on IV PPN. discussion with pt's guardian resulted in plan to proceed with PEG placement - high risk of requiring continued ventilation postop; no ICU bed available, so PEG tube has been postponed ; surgery on board - continue IV PPN- order daily # acute hypoxic resp failure - treated 2x with ABX for aspiration pneumonia - frequent suctioning and close monitoring for aspiration with one-to-one feeding; keep head of bed elevated # hypernatremia, hypovolemic - resolved s/p D5W repletion # hypoKalemia - repleted # hyperglycemia without DM - A1c 5.3, give correction-dose lispro # acute/chronic macrocytic anemia # folate deficiency - s/p 2u pRBCs 10/03/22 and 1u pRBCs 10/15/22 - replacing folate # hx of PE - apixaban held 10/13 for PEG placement ; currently on therapeutic lovenox # schizoaffective disorder - continue valproate, quetiapine, mirtazapine # UTI, multiple - completed antibiotics # hypothyroidism - continue LT4 # fluid overload - likely due to hypoalbuminemia + hypotonic fluid given IV; given 1 dose HCTZ on 10/14 # multiple wounds - R posterior knee, unstageable: silver alginate - coccyx, stage 2: Zn oxide/silver alginate - B heels, unstageable: silver alginate - R posterior ankle, unstageable: Betadine paint - R hand, skin tear: Xeroform #Nutrition: PPN, until PEG, speech to reassess, MBSS today or tomorrow # VTE ppx: apixaban on hold, lovenox until then after PEG # dispo: eventual return to [facility] for LTC In my clinical judgment, the patient requires continued inpatient hospitalization for the following reasons: PEG tube Time Spent With Patient Time: Total time managing care of this patient today ____ minutes. Quality Stroke Does the patient have a stroke diagnosis?: No VTE Prior VTE?: No VTE Risk Level:: Medical - moderate - high VTE Device Contraindication: N/A - Device Ordered VTE Drug Contraindication: N/A - Med Ordered
[2022-10-23 11:46] LABS: Glucose, Whole Blood 136 mg/dL (60-115)
--- NOTE | 2022-10-23 11:46 | MHC.SL.SWA ---
Speech Pathologist Impression: Risk of aspiation, oropharyngeal dysphagia Risk of Aspiration Due to: History of Pneumonia Reduced Cognition Dysphasia Diet Status: NPO pending MBSS results. Liquid Consistency and Strategies for Safe Swallow: Liquid Intake Recommendation: NPO Solid Food Consistency: Dietary Recommendations: NPO Oral Medication Intake: NPO Please contact the pharmacy regarding appropriate crushable or liquid drug formulations that are available whenever modified delivery is recommended. Supervision While Eating and Drinking for Safe Swallow: PO with [employer] Swallowing Recommended Treatments: Compens. Strategy Educat. Recommendation for Speech: Inpatient Speech Therapy Comment: NPO pending MBSS Risk Officer Clinican/Clinical Fellow: No Supervisory Statement: I have reviewed and agree with the student/clinical fellow's documentation: N/A Speech Language Pathologist: Brenda Velarde M.A., CCC-[employer]
--- NOTE | 2022-10-23 13:18 | MHC.SLORD ---
Speech Language Pathology Order Status: MBSS scheduled for 3pm
--- NOTE | 2022-10-23 14:29 | MHC.CM.PN ---
EMR REVIEWED AND PER MD ROUNDS, PT IS AWAITING PEG PLACEMENT AND THEN RETURN TO [facility] FOR LTC. CM WILL CONTINUE TO FOLLOW FOR PLAN.
[2022-10-23 17:09] LABS: Glucose, Whole Blood 93 mg/dL (60-115)
--- NOTE | 2022-10-23 17:27 | MHC.SL.IMP ---
Date of Plan of Treatment: 10/23/22 Onset of Symptoms/Illness: 10/02/22 Date Treatment Started: 10/02/22 Admitting Diagnosis: Aspiration into respiratory tract Primary Speech & Language Diagnosis: R13.12 Oropharyngeal Phase Dysphagia Secondary Speech & Language Diagnosis: R41.841 Cognitive communication disorder Reason for Today's Visit: 01042 Modified Barium Swallow Study Pre-evaluation Dietary Consistencies: NPO Pre-evaluation Liquid Consistency: NPO Pre-evaluation Medication Administration: NPO Admit: Aspiration into respiratory tract: Modified Barium Swallow Study Fluoroscopic Evaluation of Swallowing Function CPT Code 30843 Evaluation Year: 2022 Reason for Study: Pt displays s/s of aspiration. Referring Physician: David López MD Evaluating Clinician: Brenda Velarde MA, [facility]-DESIGN PROJECT MANAGER Study Number: 1 Patient Name: Terri Vaughn Status: Inpatient, Stretcher Age: 62 Gender: Female Medical History CKD Stage III; History of COVID infection; LT use of blood thinners, Pulmonary Embolism, Schizo-Affective Disorder Current (pre-evaluation) Intake/Diet: NPO SUBJECTIVE: DESIGN PROJECT MANAGER has been following this pt since 10/02/22. Pt has been NPO pending a PEG tube placement, which has not yet occurred as pt is awaiting an open ICU bed post-op. Pt is admitted for aspiration and has presented with intermittent s/s of aspiration throughout her hospital stay. MBSS was initially recommended by DESIGN PROJECT MANAGER, but deferred as pt?s level of alertness and engagement also waxed and waned throughout her stay. Pt awake and alert when visited by DESIGN PROJECT MANAGER this afternoon, gasped and gagged after PO trials. DESIGN PROJECT MANAGER requested MBSS to further evaluate the severity of pt?s dysphagia and to possibly identify safest, least restrictive diet textures and strategies. Oral Motor Exam Oral-Facial Teeth Characteristics: Edentulous Food and Liquid Trials: Oral Impairment: Lip Closure: 4=Escape progressing to mid-chin. Oral Impairment: Tongue Control During Bolus Hold: Did not test Oral Impairment: Bolus Preparation/Mastication: Did not test Oral Impairment: Bolus Transport/Lingual Motion: 1= Delayed initiation of tongue motion Oral Impairment: Oral Residue: 1=Trace residue lining oral structures Oral Impairment:Initiation of Pharyngeal Swallow: 1=Bolus head in valleculae Pharyngeal Impairment: Soft Palate Elevation: 0=No bolus between soft palate (SP)/pharyngeal wall (PW) Pharyngeal Impairment: Laryngeal Elevation: 1=Partial thyroid cartilage/arytenoids to epiglottic petiole movement Pharyngeal Impairment: Anterior Hyoid Excursion: 1=Partial anterior movement Pharyngeal Impairment: Epiglottic Movement: 1=Partial inversion Pharyngeal Impairment: Laryngeal Vestibular Closure:: 1=Incomplete: narrow column air/contrast in laryngeal vestibule Pharyngeal Impairment: Pharyngeal Stripping Wave: 1=Present: diminished Pharyngeal Impairment: Pharyngeal Contraction: Did not test Pharyngeal Impairment: Pharyngoesophageal Segment Openin=Complete distension and complete duration: no obstruction of flow Pharyngeal Impairment: Tongue Base (TB) Retraction: 3=Wide column of contrast/air between TB and posterior PW Pharyngeal Impairment: Pharyngeal Residue: 1=Trace residue within or on pharyngeal structures Pharyngeal Impairment: Esophageal Clearance Upright Position: Did not test Impressions and Recommendations OBJECTIVE: Time-out: performed at 14:45 Evaluation Start: 14:30; Stop: 14:34 Patient Positioning: Seated 70-90 degrees Viewing Planes: LATERAL ONLY Contrast: MBSImP? Standardized Protocol using commercially prepared, standardized Barium viscosities, including: Varibar? THIN LIQUID (40% w/v, <15 cps) , Varibar? NECTAR (40% w/v, <150-450 cps) MBSImP ID: [id number] MBSImP Results: Lip closure for intraoral bolus containment resulted in bolus escape that progressed to the mid-chin. Tongue control during bolus hold could not be assessed due to logistical reasons not related to physiologic impairment. Bolus preparation and mastication received the highest impairment score; solid not given due to patient safety concerns related to oral impairment. Bolus transport/lingual motion demonstrated delayed initiation of tongue motion. Oral residue was a trace, lining oral structures. Initiation of the pharyngeal swallow occurred when the bolus head was in the valleculae. Soft palate elevation resulted in no bolus between the soft palate and the pharyngeal wall. Laryngeal elevation was decreased, with partial superior movement of the thyroid cartilage/partial approximation of the arytenoids to the epiglottic petiole. Anterior hyoid excursion demonstrated partial anterior movement. Epiglottic movement resulted in partial inversion. Laryngeal vestibular closure was incomplete, with a narrow column of air/contrast noted within the laryngeal vestibule at the height of the swallow. Pharyngeal stripping wave was present, but diminished. Pharyngeal contraction could not be determined due to logistical reasons not related to physiologic impairment. Pharyngoesophageal segment opening was completely distended for complete duration with no obstruction of bolus flow. Tongue base retraction allowed a wide column of contrast or air between the retracted tongue base and the posterior pharyngeal wall. Pharyngeal residue was a trace within or on pharyngeal structures. Esophageal clearance in the upright position could not be assessed due to logistical reasons not related to physiologic impairment. Oral Impairment Score: 8 (absence of score, component 2) Pharyngeal Impairment Score: 8 (absence of score, component 13) Esophageal Impairment Score: --- (absence of score, component 17) Laryngeal Penetration and Aspiration: Aspiration was observed in today's study. Thin Contrast entered the airway, passed below the vocal folds, and no effort was made to eject. ASSESSMENT: This exam was conducted by a multidisciplinary team, which included a speech pathologist, radiologist, and integrated pest management technician. Pt was seated for lateral view only. Pt was positioned upright at 90 degrees but habitually leaned her shoulders forward with her chin tucked, especially when swallowing. Pt was fed with 1:1 assistance during this exam and trialed the following liquid and solid consistencies: thin liquid barium by teaspoon, nectar thick liquid barium by teaspoon, honey thick liquid barium by teaspoon, pureed solid (applesauce mixed with barium paste). There was anterior escape of liquid bolus to the mid-chin intermittently. Pt manipulated pureed solid with delayed posterior lingual transport and eventual brisk lingual motion. Pharyngeal swallow trigger initiated as the bolus head reached the valleculae. There was no nasopharyngeal reflux. Incomplete laryngeal elevation with partial epiglottic inversion. There was incomplete laryngeal vestibular closure with silent aspiration on trial of thin liquid. Thin liquid contrast entered the airway during the swallow and passed below the vocal folds. Pt did not elicit a reflexive cough in response to aspiration event. No evidence of aspiration or penetration with repeated trials of nectar thick liquid, honey thick liquid, and pureed solid. There was trace residue on the palate, on the tongue, and in the valleculae, which subsequently cleared. The following compensatory strategies have been used in therapy as well as in today's study and improved swallowing function: [place]-thick Liquid eliminated Aspiration Honey-thick Liquid eliminated Aspiration Liquid Intake Recommendation: [place] Thick Liquid Intake Strategies: Small Sips, No Straws, Liquids by Teaspoon Only Dietary Recommendations: Pureed (NDD1) Medication Administration: Crushed with Puree Please contact the pharmacy regarding appropriate crushable or liquid drug formulations that are available whenever modified delivery is recommended. Compensatory Strategies Recommended: Sitting Upright (90 deg), No Straw, Liquids from Spoon, Small Bites and Sips, Rate of Ingestion Change, Oral Check, Avoid Specific Foods Supervision during eating and or drinking: Total Assistance (1:1) Recommended Treatments: Compens. Strategy Educat. Recommendation for Speech Therapy: Inpatient Speech Therapy, Speech Therapy through Rehab Facility Intake Recommendations: Route: PO Diet Grade: Puree Liquid Consistencies: [place] Post-Study Functional Oral Intake Scale (FOIS): 5- Total oral intake of multiple consistencies requiring special preparation This exam revealed silent aspiration with trial of thin liquid. No aspiration or penetration with nectar thick, honey thick, and pureed consistencies. Recommend START on conservative textures PUREED (NDD1) solids and NECTAR THICK liquids via TEASPOON. Pt requires 1:1 assistance feeding and cuing, with STRICT ASPIRATION PRECAUTIONS: -Oral care before first meal and after each subsequent meal -Pt must be awake and alert, attending to PO; otherwise tray to be held -Minimize distractions during meals -Sit upright during PO intake -Administer small bites -Ensure pt had swallowed before giving more bites -Avoid sticky or congealed purees; mixed textures (liquid from puree) -Administer thickened liquids via teaspoon, one sip at a time -Avoid straws Therapy Recommendations: Therapy will be continued Prognosis for Improvement: The prognosis for the patient to meet nutritional needs by mouth is fair based on degree of impairment, stimulability for treatment. Supervisor Carding Goals: ? The patient will tolerate the least restrictive diet with a safe/efficient swallow to maintain adequate nutrition and hydration. ? The patient and/or family will participate in further education for swallowing goals. Short Term Goals: ? Diet - The patient will tolerate a pureed diet with nectar thick liquids without signs or symptoms of penetration/aspiration 100% of the time. - The patient will participate in therapeutic PO trials with the DESIGN PROJECT MANAGER. ? Guidelines - The patient will comply with/recall the following guidelines/strategies 100% of the time with maximum cuing: [place]-thick Liquid, Bolus Volume Change, Rate of Ingestion Change, No Straws. ? Education - The patient, family, caregiver will verbalize/demonstrate understanding of the results of this evaluation, the above recommendations, and the swallowing guidelines. Frequency/Duration: M-F as needed during hospitalization Date Range for Service Requested: Timeline to reassess: Clinician - Supplemental, Miscellaneous Communication: It is important to note MBSS objective studies are snapshots in time and Patient function might vary with factors such as time of day or concomitant medical conditions. For this reason, the final treatment plan for this patient should rest with their medical care team. Additional recommendations should be considered with the totality of the Patient in mind. Thank for the opportunity to participate in the care of this patient. If you have any questions about the content of this report, please contact the [facility] at [facility]. Sap Mobility Architect Clinician/Clinical Fellow: No Supervisory Statement: N/A Speech Language Pathologist: Brenda Velarde M.A., CCC-DESIGN PROJECT MANAGER
[2022-10-23 21:16] LABS: Glucose, Whole Blood 131 mg/dL (60-115)
[2022-10-23] MEDS: Mirtazapine 7.5 MG TABLET PO (22:23)
[2022-10-24] MEDS: Heparin Sodium,Porcine Flush 50 UNITS, 0.9 % Sodium Chloride Flush 5 ML IVFLUSH ×2 (00:26→17:10)
[2022-10-24] MEDS: Enoxaparin Sodium 100 MG/ML SYRINGE 90 MG SUBCUT ×2 (02:28→14:06)
[2022-10-24 03:52] VITALS: BP 123/57; PULSE 89; RESP 18; TEMP 36.6; O2SAT 99
[2022-10-24] MEDS: Levothyroxine Sodium 100 MCG/5 ML VIAL 50 MCG IVPUSH (06:05)
[2022-10-24 07:12] LABS: Glucose, Whole Blood 135 mg/dL (60-115)
[2022-10-24 07:23] VITALS: BP 111/59; PULSE 87; RESP 20; TEMP 36.8; O2SAT 96
[2022-10-24] MEDS: Fat Emulsions 20% 250 ML 14 ML IVCONT (08:04)
--- NOTE | 2022-10-24 09:23 | MHC.CLN ---
F/U DISCUSSED WITH PHARMACY PT TO CONTINUE RECEIVING PPN D10AA4.25 AT 85ML/HR WITH 14ML OF 20% LIPIDS PROVIDES 1712 TOTAL KCALS (FROM FORMULA & LIPIDS; 23KCALS/KG), 87G PROTEIN (1.2G/KG) DIET ADVANCED TO PUREED WITH NT LIQ S/P MBSS NO PO INTAKE NOTED REPLETE LYTES NEEDED MONITOR PO INTAKE
[2022-10-24] MEDS: Famotidine/PF 20 MG/2 ML VIAL IVPUSH (09:51)
[2022-10-24] MEDS: QUEtiapine Fumarate 50 MG TABLET PO ×3 (09:51→21:47)
[2022-10-24] MEDS: Folic Acid 1 MG TABLET PO (09:51)
[2022-10-24] MEDS: Divalproex Sodium Sprinkles 125 MG CAP.DR.SPR 1000 MG PO ×2 (09:51→21:47)
[2022-10-24] MEDS: Zinc Oxide 20% Ointment 28.35 GM TUBE 1 APPL TOPICAL ×2 (09:57→21:47)
--- NOTE | 2022-10-24 10:54 | PM.PNGS ---
Subjective Subjective Date of Service: 10/24/22 Interval history: No significant changes with patient's condition Currently on parenteral nutrition Physical Exam Vital Signs: Vital Signs: Last Vital Signs Temp 98.2 F 10/24/22 07:23 Pulse 87 10/24/22 07:23 Resp 20 10/24/22 07:23 BP 111/59 L 10/24/22 07:23 Pulse Ox 96 10/24/22 07:23 O2 Del Method Room Air 10/24/22 07:23 O2 Flow Rate 3 10/22/22 07:48 FiO2 21 10/02/22 07:00 BMI result Body Mass Index 32.1 Const: Other: Awake, nonverbal, moaning unintelligibly Resp: Other: Mildly short of breath Cardio: Rate: regular rate GI: Other: No surgical scars Palpation (GI): Soft to palpation, not firm, nontender and no guarding Objective Data Active Medications Acetaminophen (Acetaminophen Supp 650 Mg Supp.Rect) 650 mg OR Q6H PRN PRN Reason: Fever Last Admin: 10/07/22 01:59 Dose: 650 mg Documented By: ANTOIC Heparin Sodium (Porcine) 50 (units/ Sodium Chloride 5 ml) 0 units IVFLUSH QSHIFT [facility] Last Admin: 10/24/22 08:05 Dose: Not Given Documented By: DAYAMI Non-Admin Reason: IV Running Divalproex Sodium (Divalproex Sodium Sprinkles 125 Mg ) 1,000 mg PO BID [facility] Last Admin: 10/24/22 09:51 Dose: 1,000 mg Documented By: DAYAMI Enoxaparin Sodium (Enoxaparin Sodium 100 Mg/Ml Syringe) 90 mg SUBCUT Q12H [facility] Last Admin: 10/24/22 02:28 Dose: 90 mg Documented By: ROCIO Famotidine (Famotidine/Pf 20 Mg/2 Ml Vial) 20 mg IVPUSH DAILY [facility] Last Admin: 10/24/22 09:51 Dose: 20 mg Documented By: DAYAMI Folic Acid (Folic Acid 1 Mg Tablet) 1 mg PO DAILY [facility] Last Admin: 10/24/22 09:51 Dose: 1 mg Documented By: DAYAMI Glucose (Glucose Gel 15 Gm Gel..Gram.) 15 gm PO Q15M PRN; Protocol PRN Reason: per Hypoglycemia Standing Ord. Dextrose (D10) 250 mls @ 750 mls/hr IV Q15M PRN; Protocol PRN Reason: per Hypoglycemia Standing Ord. Magnesium Sulfate 5 meq/Potassium Phosphate 10 mmol/Sodium Acetate 40 meq/Potassium Acetate 20 meq/Multivitamins 10 ml/ Trace Metals 1 ml/ Amino Acids/Electrolytes/Dextrose 2,045.5333 mls @ 85 mls/hr IVCONT DAILY@1800 [facility] Stop: 10/24/22 17:59 Last Admin: 10/23/22 18:11 Dose: 85 mls/hr Documented By: DAYAMI Fat Emulsion Intravenous (Intralipid) 168 mls @ 14 mls/hr IVCONT BID@0600,1800 [facility] Stop: 10/24/22 17:59 Last Admin: 10/24/22 08:04 Dose: 14 mls/hr Documented By: DAYAMI Insulin Human Lispro (Insulin Lispro 100 Unit/Ml 3 Ml Vial) 0 unit SUBCUT QIDACHS [facility]; Protocol Last Admin: 10/24/22 07:48 Dose: Not Given Documented By: DAYAMI Non-Admin Reason: No Insulin Coverage Levothyroxine Sodium (Levothyroxine Sodium 100 Mcg/5 Ml Vial) 50 mcg IVPUSH DAILY@0600 [facility] Last Admin: 10/24/22 06:05 Dose: 50 mcg Documented By: ROCIO Mirtazapine (Mirtazapine 7.5 Mg Tablet) 7.5 mg PO BEDTIME [facility] Last Admin: 10/23/22 22:23 Dose: 7.5 mg Documented By: ROCIO Ondansetron HCl (Ondansetron Hcl 4 Mg/2 Ml Vial) 4 mg IVPUSH Q4H PRN PRN Reason: Nausea and Vomiting Last Admin: 10/05/22 14:18 Dose: 4 mg Documented By: MILTON Quetiapine Fumarate (Quetiapine Fumarate 50 Mg Tablet) 50 mg PO TID [facility] Last Admin: 10/24/22 09:51 Dose: 50 mg Documented By: DAYAMI Zinc Oxide (Zinc Oxide 20% Ointment 28.35 Gm Tube) 1 appl TOPICAL BID [facility]; Protocol Last Admin: 10/24/22 09:57 Dose: 1 appl Documented By: DAYAMI Labs 10/23/22 06:48 10/23/22 06:48 Labs: Laboratory Results - last 24 hr 10/23/22 10/23/22 10/23/22 11:03 17:01 21:02 POC Glucose 136 H 93 131 H 10/24/22 07:03 POC Glucose 135 H Procedures Date of Service Date of Service: 10/24/22 Progress Note: A&P Assessment and plan (1) Aspiration into respiratory tract: Status: Acute Assessment and Plan: Deemed to be at high risk for recurrent aspiration Referred for PEG placement May remain on ventilator postop so waiting for ICU bed As for Dr. Varner, freed up later today Peg tube scheduled for tomorrow, hopefully with available bed in the ICU postop Time Spent With Patient Time: Total time managing care of this patient today ____ minutes. Quality Stroke Does the patient have a stroke diagnosis?: No VTE Prior VTE?: No VTE Risk Level:: Medical - moderate - high VTE Device Contraindication: N/A - Device Ordered VTE Drug Contraindication: N/A - Med Ordered
--- NOTE | 2022-10-24 11:07 | HO.PM.IMPN ---
Subjective Subjective Date of Service: 10/24/22 Interval History: f/u aspiration and being eval for PEG no new isues, did ok with MBSS yesterday and started on some diet Physical Exam Vital Signs: Vital Signs: Last Vital Signs Temp 98.2 F 10/24/22 07:23 Pulse 87 10/24/22 07:23 Resp 20 10/24/22 07:23 BP 111/59 L 10/24/22 07:23 Pulse Ox 96 10/24/22 07:23 O2 Del Method Room Air 10/24/22 07:23 O2 Flow Rate 3 10/22/22 07:48 FiO2 21 10/02/22 07:00 BMI result Body Mass Index 32.1 Const: Other: Gen:? Awake, making noises, no resp distress Neck: supple Lungs:? Bilateral coarse breath sound Heart:? Tachy regular rate and rhythm Abd: soft, non-tender, non-distended Ext:? Bilateral upper and lower extremity edema Skin: warm/well-perfused Neuro: alert, nonverbal, moving all extremities Psych: impaired insight Objective Data Active Medications Acetaminophen (Acetaminophen Supp 650 Mg Supp.Rect) 650 mg NV Q6H PRN PRN Reason: Fever Last Admin: 10/07/22 01:59 Dose: 650 mg Documented By: ANTOIC Heparin Sodium (Porcine) 50 (units/ Sodium Chloride 5 ml) 0 units IVFLUSH QSHIFT [facility] Last Admin: 10/24/22 08:05 Dose: Not Given Documented By: DAYAMI Non-Admin Reason: IV Running Divalproex Sodium (Divalproex Sodium Sprinkles 125 Mg ) 1,000 mg PO BID [facility] Last Admin: 10/24/22 09:51 Dose: 1,000 mg Documented By: DAYAMI Enoxaparin Sodium (Enoxaparin Sodium 100 Mg/Ml Syringe) 90 mg SUBCUT Q12H [facility] Last Admin: 10/24/22 02:28 Dose: 90 mg Documented By: ANSHUIGCharleen Famotidine (Famotidine/Pf 20 Mg/2 Ml Vial) 20 mg IVPUSH DAILY [facility] Last Admin: 10/24/22 09:51 Dose: 20 mg Documented By: DAYAMI Folic Acid (Folic Acid 1 Mg Tablet) 1 mg PO DAILY [facility] Last Admin: 10/24/22 09:51 Dose: 1 mg Documented By: DAYAMI Glucose (Glucose Gel 15 Gm Gel..Gram.) 15 gm PO Q15M PRN; Protocol PRN Reason: per Hypoglycemia Standing Ord. Dextrose (D10) 250 mls @ 750 mls/hr IV Q15M PRN; Protocol PRN Reason: per Hypoglycemia Standing Ord. Magnesium Sulfate 5 meq/Potassium Phosphate 10 mmol/Sodium Acetate 40 meq/Potassium Acetate 20 meq/Multivitamins 10 ml/ Trace Metals 1 ml/ Amino Acids/Electrolytes/Dextrose 2,045.5333 mls @ 85 mls/hr IVCONT DAILY@1800 [facility] Stop: 10/24/22 17:59 Last Admin: 10/23/22 18:11 Dose: 85 mls/hr Documented By: DAYAMI Fat Emulsion Intravenous (Intralipid) 168 mls @ 14 mls/hr IVCONT BID@0600,1800 [facility] Stop: 10/24/22 17:59 Last Admin: 10/24/22 08:04 Dose: 14 mls/hr Documented By: DAYAMI Insulin Human Lispro (Insulin Lispro 100 Unit/Ml 3 Ml Vial) 0 unit SUBCUT QIDACHS [facility]; Protocol Last Admin: 10/24/22 07:48 Dose: Not Given Documented By: DAYAMI Non-Admin Reason: No Insulin Coverage Levothyroxine Sodium (Levothyroxine Sodium 100 Mcg/5 Ml Vial) 50 mcg IVPUSH DAILY@0600 [facility] Last Admin: 10/24/22 06:05 Dose: 50 mcg Documented By: ROCIO Mirtazapine (Mirtazapine 7.5 Mg Tablet) 7.5 mg PO BEDTIME [facility] Last Admin: 10/23/22 22:23 Dose: 7.5 mg Documented By: ROCIO Ondansetron HCl (Ondansetron Hcl 4 Mg/2 Ml Vial) 4 mg IVPUSH Q4H PRN PRN Reason: Nausea and Vomiting Last Admin: 10/05/22 14:18 Dose: 4 mg Documented By: MILTON Quetiapine Fumarate (Quetiapine Fumarate 50 Mg Tablet) 50 mg PO TID [facility] Last Admin: 10/24/22 09:51 Dose: 50 mg Documented By: DAYAMI Zinc Oxide (Zinc Oxide 20% Ointment 28.35 Gm Tube) 1 appl TOPICAL BID [facility]; Protocol Last Admin: 10/24/22 09:57 Dose: 1 appl Documented By: DAYAMI Labs 10/23/22 06:48 10/23/22 06:48 Labs: Laboratory Results - last 24 hr 10/23/22 10/23/22 10/23/22 11:03 17:01 21:02 POC Glucose 136 H 93 131 H 10/24/22 07:03 POC Glucose 135 H Assessment and Plan (1) Aspiration into respiratory tract: Status: Acute Plan 62yo F admitted initially to ICU for pressor support for sepsis due to UTI. Transferred to floor then vomited, developed aspiration pneumonitis # aspiration pneumonitis/ recurrent aspiration - finished 10-day course of IV antibiotic on 10/09, but developed hypoxia; repeat chest x-ray 10/10 showed new infiltrate, therefore placed back on IV Zosyn 10/10-10/15 - re-evaluated by speech therapy, and will required MBSS - NPO at present - given dysphagia + recurrent aspirations and decreased PO intake, pt placed on IV PPN. discussion with pt's guardian resulted in plan to proceed with PEG placement - high risk of requiring continued ventilation postop; no ICU bed available, so PEG tube has been postponed ; surgery planned for tomorrow - hold PPN today # acute hypoxic resp failure - treated 2x with ABX for aspiration pneumonia - frequent suctioning and close monitoring for aspiration with one-to-one feeding; keep head of bed elevated # hypernatremia, hypovolemic - resolved s/p D5W repletion # hypoKalemia - repleted # hyperglycemia without DM - A1c 5.3, give correction-dose lispro # acute/chronic macrocytic anemia # folate deficiency - s/p 2u pRBCs 10/03/22 and 1u pRBCs 10/15/22 - replacing folate # hx of PE - apixaban held 10/13 for PEG placement ; currently on therapeutic lovenox # schizoaffective disorder - continue valproate, quetiapine, mirtazapine # UTI, multiple - completed antibiotics # hypothyroidism - continue LT4 # fluid overload - likely due to hypoalbuminemia + hypotonic fluid given IV; given 1 dose HCTZ on 10/14 # multiple wounds - R posterior knee, unstageable: silver alginate - coccyx, stage 2: Zn oxide/silver alginate - B heels, unstageable: silver alginate - R posterior ankle, unstageable: Betadine paint - R hand, skin tear: Xeroform #Nutrition: PPN, until PEG, speech to reassess, diet per speech following MBSS result # VTE ppx: apixaban on hold, lovenox until then after PEG # dispo: eventual return to [facility] for LTC In my clinical judgment, the patient requires continued inpatient hospitalization for the following reasons: PEG tube placement tomorrow Time Spent With Patient Time: Total time managing care of this patient today ____ minutes. Quality Stroke Does the patient have a stroke diagnosis?: No VTE Prior VTE?: No VTE Risk Level:: Medical - moderate - high VTE Device Contraindication: N/A - Device Ordered VTE Drug Contraindication: N/A - Med Ordered
[2022-10-24 11:14] LABS: Triglycerides 235 mg/dL
[2022-10-24 11:18] LABS: Glucose, Whole Blood 134 mg/dL (60-115)
[2022-10-24 11:20] VITALS: BP 108/60; PULSE 95; RESP 20; TEMP 36.8; O2SAT 95
[2022-10-24 11:21] LABS: Albumin Level 2.6 g/dL (3.5-5.0); Anion Gap 13 (12-20); Blood Urea Nitrogen 59 mg/dL (9-16); Calcium 9.8 mg/dL (8.4-10.2); Carbon Dioxide 22 mmol/L (22-29); Chloride 107 mmol/L (96-108); Estimated Glomerular Filt Rate > 60; Glucose Random 128 mg/dL (60-115); Magnesium 2.4 mg/dL (1.6-2.6); Phosphorus 3.8 mg/dL (2.7-4.5); Potassium 4.4 mmol/L (3.3-5.1); Sodium 138 mmol/L (135-145)
--- NOTE | 2022-10-24 12:04 | MHC.CM.PN ---
EMR REVIEWED, PER HOSPITALIST AND SURGICAL NOTES PEG TUBE TO BE PLACED TOMORROW 10/25 AND [facility] ICU BED P/O, [facility] UPDATED AND CM WILL CONT TO FOLLOW D/C NEEDS. [facility] WILL NEED TO SEND PEG NUTRITION HOME W/PT.
--- NOTE | 2022-10-24 12:31 | MHC.SPEECHCO ---
Per chart, Pt anticipating PEG placement tomorrow. MERRY GO ROUND ATTENDANT tx on hold pending TF initiation.
[2022-10-24 15:44] VITALS: BP 113/56; PULSE 96; RESP 15; TEMP 37.1; O2SAT 96
[2022-10-24 16:27] LABS: Glucose, Whole Blood 116 mg/dL (60-115)
[2022-10-24 19:58] VITALS: BP 116/55; PULSE 105; RESP 15; TEMP 36.4; O2SAT 96
[2022-10-24 20:50] LABS: Glucose, Whole Blood 128 mg/dL (60-115)
[2022-10-24] MEDS: Mirtazapine 7.5 MG TABLET PO (21:47)
[2022-10-24 23:56] VITALS: BP 115/63; PULSE 93; TEMP 36.3; O2SAT 95
[2022-10-25] MEDS: Heparin Sodium,Porcine Flush 50 UNITS, 0.9 % Sodium Chloride Flush 5 ML IVFLUSH ×2 (01:32→08:27)
[2022-10-25 04:00] VITALS: BP 115/63; PULSE 93; RESP 19; TEMP 36.3; O2SAT 92
[2022-10-25] MEDS: Levothyroxine Sodium 100 MCG/5 ML VIAL 50 MCG IVPUSH (06:10)
[2022-10-25 07:13] VITALS: BP 113/57; PULSE 94; RESP 20; TEMP 37.1; O2SAT 96
[2022-10-25 07:37] LABS: Glucose, Whole Blood 70 mg/dL (60-115)
[2022-10-25] MEDS: Zinc Oxide 20% Ointment 28.35 GM TUBE 1 APPL TOPICAL ×2 (08:28→22:59)
--- NOTE | 2022-10-25 08:55 | P.PNIM_ITS ---
Subjective Subjective Date of Service: 10/25/22 Interval History: f/u aspiration and being eval for PEG no new isues, PEG later today Physical Exam Vital Signs: Vital Signs: Last Vital Signs Temp 98.7 F 10/25/22 07:13 Pulse 94 10/25/22 07:13 Resp 20 10/25/22 07:13 BP 113/57 L 10/25/22 07:13 Pulse Ox 96 10/25/22 07:13 O2 Del Method Room Air 10/25/22 07:13 O2 Flow Rate 3 10/22/22 07:48 FiO2 21 10/02/22 07:00 BMI result Body Mass Index 32.1 Const: Other: Gen:? Awake, making noises, no resp distress Neck: supple Lungs:? Bilateral coarse breath sound Heart:? Tachy regular rate and rhythm Abd: soft, non-tender, non-distended Ext:? Bilateral upper and lower extremity edema Skin: warm/well-perfused Neuro: alert, nonverbal, moving all extremities Psych: impaired insight Objective Data Active Medications Acetaminophen (Acetaminophen Supp 650 Mg Supp.Rect) 650 mg OH Q6H PRN PRN Reason: Fever Last Admin: 10/07/22 01:59 Dose: 650 mg Documented By: GAGANOIC Heparin Sodium (Porcine) 50 (units/ Sodium Chloride 5 ml) 0 units IVFLUSH QSH IFT [facility] Last Admin: 10/25/22 08:27 Dose: 50 unit Documented By: YAMILE Divalproex Sodium (Divalproex Sodium Sprinkles 125 Mg ) 1,000 mg PO BID [facility] Last Admin: 10/25/22 08:10 Dose: Not Given Documented By: YAMILE Non-Admin Reason: NPO Enoxaparin Sodium (Enoxaparin Sodium 100 Mg/Ml Syringe) 90 mg SUBCUT Q12H [facility] Last Admin: 10/25/22 01:36 Dose: Not Given Documented By: MAHNAZ Non-Admin Reason: Physician Approved Famotidine (Famotidine/Pf 20 Mg/2 Ml Vial) 20 mg IVPUSH DAILY [facility] Last Admin: 10/25/22 08:10 Dose: Not Given Documented By: YAMILE Non-Admin Reason: NPO Folic Acid (Folic Acid 1 Mg Tablet) 1 mg PO DAILY [facility] Last Admin: 10/25/22 08:10 Dose: Not Given Documented By: YAMILE Non-Admin Reason: NPO Glucose (Glucose Gel 15 Gm Gel..Gram.) 15 gm PO Q15M PRN; Protocol PRN Reason: per Hypoglycemia Standing Ord. Dextrose (D10) 250 mls @ 750 mls/hr IV Q15M PRN; Protocol PRN Reason: per Hypoglycemia Standing Ord. Cefazolin Sodium/Dextrose (Ancef) 2 gm in 50 mls @ 100 mls/hr IV PREOP ONE Stop: 10/25/22 13:40 Insulin Human Lispro (Insulin Lispro 100 Unit/Ml 3 Ml Vial) 0 unit SUBCUT QIDACHS [facility]; Protocol Last Admin: 10/25/22 07:42 Dose: Not Given Documented By: YAMILE Non-Admin Reason: No Insulin Coverage Levothyroxine Sodium (Levothyroxine Sodium 100 Mcg/5 Ml Vial) 50 mcg IVPUSH DAILY@0600 [facility] Last Admin: 10/25/22 06:10 Dose: 50 mcg Documented By: MAHNAZ Mirtazapine (Mirtazapine 7.5 Mg Tablet) 7.5 mg PO BEDTIME [facility] Last Admin: 10/24/22 21:47 Dose: 7.5 mg Documented By: MAHNAZ Ondansetron HCl (Ondansetron Hcl 4 Mg/2 Ml Vial) 4 mg IVPUSH Q4H PRN PRN Reason: Nausea and Vomiting Last Admin: 10/05/22 14:18 Dose: 4 mg Documented By: MILTON Quetiapine Fumarate (Quetiapine Fumarate 50 Mg Tablet) 50 mg PO TID [facility] Last Admin: 10/25/22 08:11 Dose: Not Given Documented By: YAMILE Non-Admin Reason: NPO Zinc Oxide (Zinc Oxide 20% Ointment 28.35 Gm Tube) 1 appl TOPICAL BID [facility]; Protocol Last Admin: 10/25/22 08:28 Dose: 1 appl Documented By: YAMILE Labs 10/23/22 06:48 10/24/22 07:04 Labs: Laboratory Results - last 24 hr 10/24/22 10/24/22 10/24/22 07:04 07:04 11:03 Anion Gap 13 Estim Creat Clear Calc 75.0 Estimated GFR > 60 POC Glucose 134 H Random Glucose 128 H Calcium 9.8 Phosphorus 3.8 Magnesium 2.4 Albumin 2.6 L Triglycerides 235 10/24/22 10/24/22 10/25/22 16:18 20:45 07:15 Anion Gap Estim Creat Clear Calc Estimated GFR POC Glucose 116 H 128 H 70 Random Glucose Calcium Phosphorus Magnesium Albumin Triglycerides Assessment and Plan (1) Aspiration into respiratory tract: Status: Acute Plan 62yo F admitted initially to ICU for pressor support for sepsis due to UTI. Transferred to floor then vomited, developed aspiration pneumonitis # aspiration pneumonitis/ recurrent aspiration - finished 10-day course of IV antibiotic on 10/09, but developed hypoxia; repeat chest x-ray 10/10 showed new infiltrate, therefore placed back on IV Zosyn 10/10- 10/15 - re-evaluated by speech therapy, and will required MBSS - given dysphagia + recurrent aspirations and decreased PO intake, pt placed on IV PPN. discussion with pt's guardian resulted in plan to proceed with PEG placement - high risk of requiring continued ventilation postop; no ICU bed available, so PEG tube has been postponed ; surgery planned for tomorrow - NPO for PEG today # acute hypoxic resp failure - treated 2x with ABX for aspiration pneumonia - frequent suctioning and close monitoring for aspiration with one-to-one feeding; keep head of bed elevated # hypernatremia, hypovolemic - resolved s/p D5W repletion # hypoKalemia - repleted # hyperglycemia without DM - A1c 5.3, give correction-dose lispro # acute/chronic macrocytic anemia # folate deficiency - s/p 2u pRBCs 10/03/22 and 1u pRBCs 10/15/22 - replacing folate # hx of PE - apixaban held 10/13 for PEG placement ; currently on therapeutic lovenox, hold next dose # schizoaffective disorder - continue valproate, quetiapine, mirtazapine # UTI, multiple - completed antibiotics # hypothyroidism - continue LT4 # fluid overload - likely due to hypoalbuminemia + hypotonic fluid given IV; given 1 dose HCTZ on 10/14 # multiple wounds - R posterior knee, unstageable: silver alginate - coccyx, stage 2: Zn oxide/silver alginate - B heels, unstageable: silver alginate - R posterior ankle, unstageable: Betadine paint - R hand, skin tear: Xeroform #Nutrition: Diet per nutrition, PEG today # VTE ppx: apixaban on hold, lovenox until after PEG # dispo: eventual return to [facility] for LTC In my clinical judgment, the patient requires continued inpatient hospitalization for the following reasons: PEG tube placement tomorrow Time Spent With Patient Time: Total time managing care of this patient today ____ minutes. Quality Stroke Does the patient have a stroke diagnosis?: No VTE Prior VTE?: No VTE Risk Level:: Medical - moderate - high VTE Device Contraindication: N/A - Device Ordered VTE Drug Contraindication: N/A - Med Ordered
--- NOTE | 2022-10-25 10:22 | MHC.CLN ---
F/U PEG PLACEMENT PLANNED FOR TODAY REVIEWED LABS PT IS CURRENTLY NPO AND PPN ON HOLD IF TF NEEDED; RECOMMEND PROMOTE AT MAX GOAL RATE 70ML/HR WITH 240ML FREE WATER FLUSHES Q 6HRS TO PROVIDE 1680KCLAS (23KCALS/KG), 105G PROTEIN (1.4G/KG), 2369ML TOTAL WATER FROM FORMULA AND FLUSHES (32ML/KG) START FORMULA AT 20ML/HR AND INCREASE BY 10ML Q 4 HRS UNTIL MAX GOAL IS ACHIEVED TF WILL PROMOTE WOUND HEALING MONITOR TOLERANCE, RESIDUALS AND LYTES FOLLOWING WITH TEAM
[2022-10-25 11:17] VITALS: BP 108/56; PULSE 100; RESP 20; TEMP 36.3; O2SAT 95
--- NOTE | 2022-10-25 11:25 | MHC.SLORD ---
Speech Language Pathology Order Status: Per RN, pt NPO & scheduled for PEG today. CONTRACT ADMINISTRATION MANAGER to continue to follow after PEG surgery to monitor for toleration of recommended diet of PUREED (NDD1) solids and NECTAR THICK liquids via TEASPOON. Pt requires 1:1 assistance feeding and cuing, with STRICT ASPIRATION PRECAUTIONS. See 10/23 Speech MBSImP note for full details.
[2022-10-25 11:33] LABS: Glucose, Whole Blood 76 mg/dL (60-115)
[2022-10-25 11:54] LABS: Glucose, Whole Blood 86 mg/dL (60-115)
--- NOTE | 2022-10-25 13:36 | PM.EVENT ---
Event Note Date of Service: 10/25/22 Event Note: Patient was on the schedule for PEG tube placement today However, the IV site on the forearm was noted to be infiltrated with induration and swelling Procedure therefore was canceled by anesthesiologist in view of concerns for infection Patient will be put back on the schedule for tomorrow for PEG tube placement if induration is not worse Time Spent With Patient Time: Total time managing care of this patient today ____ minutes.
--- NOTE | 2022-10-25 13:54 | PC.NURSE ---
Addendum entered by Sherrie Arellano 10/25/22 14:04: PATIENT TRANSFERRED BACK TO FLOOR BY RIKA NAVARRO AT 1207. Original Note: PATIENT ARRIVED TO PREOP IN BED TRANSFERRED BY RIKA NAVARRO. PATIENT NONVERBAL, UNABLE TO ANSWER QUESTIONS, INTERMITTENT GARBLED SPEECH. LEFT UPPER ARM MIDLINE ASSESSED BY THIS NURSE. SITE RED, HOT AND HARD TO TOUCH. WHEN SITE PALPATED, PATIENT YELLED OUT. DR. SHRESTHA MADE AWARE AND ARRIVED AT BEDSIDE. DR. FELDER, DR. MOSQUERA, AND DIRECTOR CHAY TYLER ALSO PRESENT AT BEDSIDE. ALL AGREED SITE WAS VISIBLY INFECTED AND COULD NOT BE USED. FLOOR NURSE KWAME LAGOS CONTACTED AND STATED THE SITE LOOKED FINE THIS MORNING . CHARGE NURSE EVELIN TOBIAS MADE AWARE AND NOTIFIED HOSPITALIST DR. TINOCO OF FINDING. DR. SCHROEDER ALSO MADE AWARE. PATIENT TRANSFERRED BACK UPSTAIRS TO ROOM. CASE TO BE RESCHEDULED.
--- NOTE | 2022-10-25 15:32 | PC.NURSE ---
Pt. was scheduled for peg tube placement today but was canceled due to mid-line being infected. Upon coming back to the unit MD was made aware and inspected mid-line. Mid-line was then taken out by tech that had placed it and there was no puss and no signs of infection. Before taking out the mid-line was flushing and working properly. The area around the mid-line was red but the pt. does have multiple bruises and wounds on bilat. arms. We were able to place a peripheral IV in the pt. L upper arm. Will continue to monitor Mid-Line removal site.
[2022-10-25 15:37] VITALS: BP 139/64; PULSE 101; RESP 16; TEMP 37.5; O2SAT 93
[2022-10-25] MEDS: Enoxaparin Sodium 100 MG/ML SYRINGE 90 MG SUBCUT (15:39)
[2022-10-25] MEDS: QUEtiapine Fumarate 50 MG TABLET PO ×2 (15:42→22:59)
[2022-10-25 16:10] LABS: Glucose, Whole Blood 72 mg/dL (60-115)
--- NOTE | 2022-10-25 16:30 | PM.EVENT ---
Event Note Date of Service: 10/26/22 Event Note: LUE midline appear infiltrate, causing swelling of arm minimal redness not c/w cellulitis. Line remove and no sign of infection. Will get US to r/o clot Time Spent With Patient Time: Total time managing care of this patient today ____ minutes.
--- NOTE | 2022-10-25 17:34 | HO.REMOVAL ---
Removal of PICC/Midline Removal of PICC/Midline: Removal of PICC/Midline: 1. Date: 10/25/22 2. Reason removed: MD order 3. Inserted length: 8 cm 4. Removed length: 8 cm 5. A dressing was placed over the site upon removal. No edema or bleeding at the site. there was errythemia an firmness at the left anticubital area. no redness 5 cm below midline insertion site, no redness or swelling at midline insertion site and no redness or swelling above the midline. Midline removed as ordered. The patient tolerated the procedure well. NADIRA bobby. Erinn Graham at bedside.
[2022-10-25 19:25] VITALS: BP 120/69; PULSE 106; RESP 16; TEMP 36.3; O2SAT 95
[2022-10-25 20:00] LABS: Glucose, Whole Blood 79 mg/dL (60-115)
[2022-10-25] MEDS: Divalproex Sodium Sprinkles 125 MG CAP.DR.SPR 1000 MG PO (22:58)
[2022-10-25] MEDS: Mirtazapine 7.5 MG TABLET PO (22:59)
[2022-10-26] VITALS (9 sets, daily range): BP systolic 102–131; BP diastolic 48–63; PULSE 86–103; RESP 18–20; TEMP 36–38; O2SAT 92–98
[2022-10-26] MEDS: Levothyroxine Sodium 100 MCG/5 ML VIAL 50 MCG IVPUSH (06:06)
--- NOTE | 2022-10-26 07:33 | P.CONAN_ITS ---
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 (Acute) Pulmonary embolism (Acute) Delirium due to another medical condition, acute, hyperactive (Acute) Pressure sore on ankle (Acute) Aspiration into respiratory tract (Acute) Atelectasis of left lung (Acute) Sepsis (Acute) UTI (urinary tract infection) (Acute) Pleural effusion on left (Acute) COVID (Acute) Past Medical History Medical History (Updated 10/17/22 @ 14:33 by Donny Andrade MD) Chronic kidney disease, stage 3 COVID Hx of longterm use of blood thinners Hypertension Intellectual disability Pressure sore on ankle Pulmonary embolism Schizoaffective disorder Family History Family history of problems with anesthesia: Unobtainable Surgical History History of Problems with Anesthesia: Unobtainable Social History Social History Household Members: Unknown / Unable to assess Housing: Unknown / Unable to assess Unable to assess alcohol history related to: Unable to respond Patient Tobacco Use Status: Tobacco use Unknown Use of substances other than those prescribed or required for medical reasons: Unknown Currently Displaying Signs/Symptoms of Drug Intoxication Withdrawal: No Are you DNR?: No Advance Directives: No Advance Directives Information Provided: No Recently lost weight without trying: Unsure Patient : No service: No Current occupational status: disabled Meds Allergies Allergy/AdvReac Type Severity Reaction Status Date / Time Unable to Assess Allergy Verified 01/02/22 11:20 Active Medications: Current Medications Acetaminophen (Acetaminophen Supp 650 Mg Supp.Rect) 650 mg ME Q6H PRN PRN Reason: Fever Last Admin: 10/07/22 01:59 Dose: 650 mg Heparin Sodium (Porcine) 50 (units/ Sodium Chloride 5 ml) 0 units IVFLUSH QSHIFT [facility] Last Admin: 10/26/22 07:27 Dose: Not Given Divalproex Sodium (Divalproex Sodium Sprinkles 125 Mg ) 1,000 mg PO BID [facility] Last Admin: 10/25/22 22:58 Dose: 1,000 mg Enoxaparin Sodium (Enoxaparin Sodium 100 Mg/Ml Syringe) 90 mg SUBCUT Q12H [facility] Last Admin: 10/26/22 02:46 Dose: Not Given Famotidine (Famotidine/Pf 20 Mg/2 Ml Vial) 20 mg IVPUSH DAILY [facility] Last Admin: 10/25/22 08:10 Dose: Not Given Folic Acid (Folic Acid 1 Mg Tablet) 1 mg PO DAILY [facility] Last Admin: 10/25/22 08:10 Dose: Not Given Glucose (Glucose Gel 15 Gm Gel..Gram.) 15 gm PO Q15M PRN; Protocol PRN Reason: per Hypoglycemia Standing Ord. Dextrose (D10) 250 mls @ 750 mls/hr IV Q15M PRN; Protocol PRN Reason: per Hypoglycemia Standing Ord. Insulin Human Lispro (Insulin Lispro 100 Unit/Ml 3 Ml Vial) 0 unit SUBCUT QIDACHS [facility]; Protocol Last Admin: 10/25/22 19:58 Dose: Not Given Levothyroxine Sodium (Levothyroxine Sodium 100 Mcg/5 Ml Vial) 50 mcg IVPUSH DAILY@0600 [facility] Last Admin: 10/26/22 06:06 Dose: 50 mcg Mirtazapine (Mirtazapine 7.5 Mg Tablet) 7.5 mg PO BEDTIME [facility] Last Admin: 10/25/22 22:59 Dose: 7.5 mg Ondansetron HCl (Ondansetron Hcl 4 Mg/2 Ml Vial) 4 mg IVPUSH Q4H PRN PRN Reason: Nausea and Vomiting Last Admin: 10/05/22 14:18 Dose: 4 mg Quetiapine Fumarate (Quetiapine Fumarate 50 Mg Tablet) 50 mg PO TID [facility] Last Admin: 10/25/22 22:59 Dose: 50 mg Zinc Oxide (Zinc Oxide 20% Ointment 28.35 Gm Tube) 1 appl TOPICAL BID [facility]; Protocol Last Admin: 10/25/22 22:59 Dose: 1 appl Home Medications Medication Instructions Recorded Confirmed Last Taken Type acetaminophen 500 mg tablet 1,000 mg PO TID PRN Pain 01/02/22 09/29/22 Unknown History apixaban 2.5 mg tablet (Eliquis) 2.5 mg PO BID 01/02/22 09/29/22 Unknown History atorvastatin 10 mg tablet 10 mg PO BEDTIME 01/02/22 09/29/22 Unknown History divalproex 125 mg capsule,delayed 1,000 mg PO BID 01/02/22 09/29/22 Unknown History release sprinkle lactulose 10 gram/15 mL oral 20 g PO BID 01/02/22 09/29/22 Unknown History solution (Enulose) levothyroxine 100 mcg capsule 100 mcg PO DAILY 01/02/22 09/29/22 Unknown History mirtazapine 7.5 mg tablet 7.5 mg PO BEDTIME 01/02/22 09/29/22 Unknown History quetiapine 50 mg tablet 50 mg PO TID 01/02/22 09/29/22 Unknown History trazodone 100 mg tablet 200 mg PO BID 01/02/22 09/29/22 Unknown History ascorbic acid (vitamin C) 1,000 mg 1,000 mg PO BID 09/29/22 09/29/22 Unknown History tablet (Vitamin C) ascorbic acid (vitamin C) 250 mg 250 mg PO BID 09/29/22 09/29/22 Unknown History tablet (Vitamin C) bisacodyl 10 mg rectal suppository 10 mg ME DAILY PRN Constipation 09/29/22 09/29/22 Unknown History tramadol 50 mg tablet 50 mg PO BID PRN Pain 09/29/22 09/29/22 Unknown History Exam Exam Date and Time: October 26, 2022 0733 Height,Weight and Vital Signs: Height 5 ft 8 in Weight 96 kg Last Vital Signs Temp 100.4 F 10/26/22 06:48 Pulse 88 10/26/22 06:48 Resp 18 10/26/22 06:48 BP 102/54 L 10/26/22 06:48 Pulse Ox 98 10/26/22 06:48 O2 Del Method Room Air 10/26/22 06:48 O2 Flow Rate 3 10/22/22 07:48 FiO2 21 10/02/22 07:00 Pertinent Lab Results Pertinent Lab Results: Laboratory Tests 09/29/22 09/29/22 09/29/22 14:05 14:06 14:08 WBC 21.5 H RBC 3.13 L Hgb 8.7 L Hct 31.9 L MCV 101.9 H MCH 27.8 MCHC 27.3 L RDW 19.3 H Plt Count 568 H D MPV 10.1 Immature Gran % (Auto) 4.1 H Neut % (Auto) 74.1 H Lymph % (Auto) 9.8 L Gilliam % (Auto) 11.7 H Eos % (Auto) 0.0 Baso % (Auto) 0.3 Lymph # (Auto) 2.1 Gilliam # (Auto) 2.5 H Eos # (Auto) 0.0 Baso # (Auto) 0.1 Abs Immat Gran (auto) 0.89 H Absolute Neuts (auto) 15.9 H Absolute Nucleated RBC 0.210 H Nucleated RBC % (auto) 1.0 H Neutrophils % (Manual) Band Neutrophils % Lymphocytes % (Manual) Atypical Lymphs % (Man) Monocytes % (Manual) Eosinophils % (Manual) Basophils % (Manual) Metamyelocytes % Myelocytes % Abs Neuts (Manual) Lymphocytes # (Manual) Atyp Lymphs # (Manual) Monocytes # (Manual) Eosinophils # (Manual) Basophils # (Manual) Metamyelocytes # Myelocytes # Nucleated RBCs Toxic Granulation Dohle Bodies WBC Morphology Comment Platelet Estimate Large Platelets Plt Morphology Comment RBC Morphology Polychromasia Hypochromasia Basophilic Stippling Microcytosis Macrocytosis Spherocytes Target Cells Stomatocytes [place] Cells Acanthocytes (Spur) Smear Tech's Comments VERIFIED Smear Path Review PT INR O2 Saturation ABG pH at Pt Temp ABG pCO2 at Pt Temp ABG pO2 at Pt Temp ABG HCO3 ABG Base Excess (Actual) VBG pH VBG pCO2 VBG pO2 VBG HCO3 VBG O2 Saturation VBG Base Excess Sodium Potassium Chloride Carbon Dioxide Anion Gap BUN Creatinine Estim Creat Clear Calc Estimated GFR POC Glucose Random Glucose Fasting Glucose Estimat Average Glucose Hemoglobin A1c % Lactic Acid 4.0 H* Lactic Acid F/U @ 2Hr Lactic Acid F/U @ 4Hr Calcium Phosphorus Magnesium Total Bilirubin AST ALT Alkaline Phosphatase Ammonia 30 Troponin I High Sens C-Reactive Protein Total Protein Albumin Triglycerides Vitamin B12 Folate TSH Urine Color Urine Appearance Urine pH Ur Specific [place] Urine Protein Urine Glucose (UA) Urine Ketones Urine Blood Urine Nitrite Ur Leukocyte Esterase Urine RBC Urine WBC Ur Squamous Epith Cells Urine Bacteria Hyaline Casts Urine Osmolality Ur Random Sodium Stool Occult Blood Vancomycin Trough Random Vancomycin COVID-19 (PADMA) COVID-19 Clin Com Blood Type Antibody Screen Crossmatch 09/29/22 09/29/22 09/29/22 14:08 14:08 14:20 WBC RBC Hgb Hct MCV MCH MCHC RDW Plt Count MPV Immature Gran % (Auto) Neut % (Auto) Lymph % (Auto) Gilliam % (Auto) Eos % (Auto) Baso % (Auto) Lymph # (Auto) Gilliam # (Auto) Eos # (Auto) Baso # (Auto) Abs Immat Gran (auto) Absolute Neuts (auto) Absolute Nucleated RBC Nucleated RBC % (auto) Neutrophils % (Manual) Band Neutrophils % Lymphocytes % (Manual) Atypical Lymphs % (Man) Monocytes % (Manual) Eosinophils % (Manual) Basophils % (Manual) Metamyelocytes % Myelocytes % Abs Neuts (Manual) Lymphocytes # (Manual) Atyp Lymphs # (Manual) Monocytes # (Manual) Eosinophils # (Manual) Basophils # (Manual) Metamyelocytes # Myelocytes # Nucleated RBCs Toxic Granulation Dohle Bodies WBC Morphology Comment Platelet Estimate Large Platelets Plt Morphology Comment RBC Morphology Polychromasia Hypochromasia Basophilic Stippling Microcytosis Macrocytosis Spherocytes Target Cells Stomatocytes [place] Cells Acanthocytes (Spur) Smear Tech's Comments Smear Path Review PT 17.0 H INR 1.5 H O2 Saturation ABG pH at Pt Temp ABG pCO2 at Pt Temp ABG pO2 at Pt Temp ABG HCO3 ABG Base Excess (Actual) VBG pH VBG pCO2 VBG pO2 VBG HCO3 VBG O2 Saturation VBG Base Excess Sodium 146 H Potassium 4.4 Chloride 106 Carbon Dioxide 28 Anion Gap 16 BUN 23 H Creatinine 1.20 Estim Creat Clear Calc 54.7 Estimated GFR 45 POC Glucose Random Glucose 95 Fasting Glucose Estimat Average Glucose Hemoglobin A1c % Lactic Acid Lactic Acid F/U @ 2Hr Lactic Acid F/U @ 4Hr Calcium 9.8 Phosphorus Magnesium Total Bilirubin 0.3 AST 10 ALT < 5 Alkaline Phosphatase 80 Ammonia Troponin I High Sens C-Reactive Protein Total Protein 6.1 L Albumin 2.4 L Triglycerides Vitamin B12 Folate TSH Urine Color Yellow Urine Appearance Turbid Urine pH 6.5 Ur Specific [place] 1.015 Urine Protein 100 (2+) H Urine Glucose (UA) Negative Urine Ketones Negative Urine Blood Moderate (2+) H Urine Nitrite Negative Ur Leukocyte Esterase Large (3+) H Urine RBC >20 H Urine WBC >50 H Ur Squamous Epith Cells 0-2 Urine Bacteria 4+ Hyaline Casts 3-5 Urine Osmolality Ur Random Sodium Stool Occult Blood Vancomycin Trough Random Vancomycin COVID-19 (PADMA) COVID-19 Clin Com Blood Type Antibody Screen Crossmatch 09/29/22 09/29/22 09/29/22 14:35 16:37 16:37 WBC RBC Hgb Hct MCV MCH MCHC RDW Plt Count MPV Immature Gran % (Auto) Neut % (Auto) Lymph % (Auto) Gilliam % (Auto) Eos % (Auto) Baso % (Auto) Lymph # (Auto) Gilliam # (Auto) Eos # (Auto) Baso # (Auto) Abs Immat Gran (auto) Absolute Neuts (auto) Absolute Nucleated RBC Nucleated RBC % (auto) Neutrophils % (Manual) Band Neutrophils % Lymphocytes % (Manual) Atypical Lymphs % (Man) Monocytes % (Manual) Eosinophils % (Manual) Basophils % (Manual) Metamyelocytes % Myelocytes % Abs Neuts (Manual) Lymphocytes # (Manual) Atyp Lymphs # (Manual) Monocytes # (Manual) Eosinophils # (Manual) Basophils # (Manual) Metamyelocytes # Myelocytes # Nucleated RBCs Toxic Granulation Dohle Bodies WBC Morphology Comment Platelet Estimate Large Platelets Plt Morphology Comment RBC Morphology Polychromasia Hypochromasia Basophilic Stippling Microcytosis Macrocytosis Spherocytes Target Cells Stomatocytes [place] Cells Acanthocytes (Spur) Smear Tech's Comments Smear Path Review PT INR O2 Saturation < 30.0 ABG pH at Pt Temp 7.33 L ABG pCO2 at Pt Temp 54 H ABG pO2 at Pt Temp 27 L* ABG HCO3 29 H ABG Base Excess (Actual) 2.6 VBG pH VBG pCO2 VBG pO2 VBG HCO3 VBG O2 Saturation VBG Base Excess Sodium Potassium Chloride Carbon Dioxide Anion Gap BUN Creatinine Estim Creat Clear Calc Estimated GFR POC Glucose Random Glucose Fasting Glucose Estimat Average Glucose Hemoglobin A1c % Lactic Acid Lactic Acid F/U @ 2Hr 2.7 H* Lactic Acid F/U @ 4Hr Calcium Phosphorus Magnesium Total Bilirubin AST ALT Alkaline Phosphatase Ammonia Troponin I High Sens C-Reactive Protein Total Protein Albumin Triglycerides Vitamin B12 Folate TSH Urine Color Urine Appearance Urine pH Ur Specific [place] Urine Protein Urine Glucose (UA) Urine Ketones Urine Blood Urine Nitrite Ur Leukocyte Esterase Urine RBC Urine WBC Ur Squamous Epith Cells Urine Bacteria Hyaline Casts Urine Osmolality Ur Random Sodium Stool Occult Blood Vancomycin Trough Random Vancomycin COVID-19 (PADMA) Negative COVID-19 Clin Com See Note Blood Type Antibody Screen Crossmatch 09/29/22 09/29/22 09/29/22 18:56 23:33 23:33 WBC 32.1 H* RBC 2.74 L Hgb 7.7 L Hct 27.8 L MCV 101.5 H MCH 28.1 MCHC 27.7 L RDW 18.8 H Plt Count 630 H MPV 9.9 Immature Gran % (Auto) Cancelled Neut % (Auto) Cancelled Lymph % (Auto) Cancelled Gilliam % (Auto) Cancelled Eos % (Auto) Cancelled Baso % (Auto) Cancelled Lymph # (Auto) Cancelled Gilliam # (Auto) Cancelled Eos # (Auto) Cancelled Baso # (Auto) Cancelled Abs Immat Gran (auto) Cancelled Absolute Neuts (auto) Cancelled Absolute Nucleated RBC 0.360 H Nucleated RBC % (auto) 1.1 H Neutrophils % (Manual) 62 Band Neutrophils % 11 H Lymphocytes % (Manual) 11 L Atypical Lymphs % (Man) Monocytes % (Manual) 8 Eosinophils % (Manual) Basophils % (Manual) Metamyelocytes % 6 Myelocytes % 2 Abs Neuts (Manual) 23.4 H Lymphocytes # (Manual) 3.5 Atyp Lymphs # (Manual) Monocytes # (Manual) 2.6 H Eosinophils # (Manual) Basophils # (Manual) Metamyelocytes # 1.9 Myelocytes # 0.6 Nucleated RBCs Toxic Granulation PRESENT Dohle Bodies PRESENT WBC Morphology Comment DYSMORPHIC Platelet Estimate INCREASED Large Platelets PRESENT Plt Morphology Comment NOTED RBC Morphology NOTED Polychromasia 2+ (3-5) Hypochromasia Basophilic Stippling 1+ (0-2) Microcytosis 1+ (5-14) Macrocytosis Spherocytes Target Cells Stomatocytes [place] Cells Acanthocytes (Spur) 2+ (3-5) Smear Tech's Comments Smear Path Review SEE NOTE PT INR O2 Saturation ABG pH at Pt Temp ABG pCO2 at Pt Temp ABG pO2 at Pt Temp ABG HCO3 ABG Base Excess (Actual) VBG pH VBG pCO2 VBG pO2 VBG HCO3 VBG O2 Saturation VBG Base Excess Sodium Potassium Chloride Carbon Dioxide Anion Gap BUN Creatinine Estim Creat Clear Calc Estimated GFR POC Glucose Random Glucose Fasting Glucose Estimat Average Glucose Hemoglobin A1c % Lactic Acid 0.7 Lactic Acid F/U @ 2Hr Lactic Acid F/U @ 4Hr 2.5 H* Calcium Phosphorus Magnesium Total Bilirubin AST ALT Alkaline Phosphatase Ammonia Troponin I High Sens C-Reactive Protein Total Protein Albumin Triglycerides Vitamin B12 Folate TSH Urine Color Urine Appearance Urine pH Ur Specific [place] Urine Protein Urine Glucose (UA) Urine Ketones Urine Blood Urine Nitrite Ur Leukocyte Esterase Urine RBC Urine WBC Ur Squamous Epith Cells Urine Bacteria Hyaline Casts Urine Osmolality Ur Random Sodium Stool Occult Blood Vancomycin Trough Random Vancomycin COVID-19 (PADMA) COVID-19 Clin Com Blood Type Antibody Screen Crossmatch 09/29/22 09/29/22 09/30/22 23:33 23:35 05:15 WBC 29.3 H RBC 2.62 L Hgb 7.5 L Hct 26.6 L MCV 101.5 H MCH 28.6 MCHC 28.2 L RDW 18.8 H Plt Count 604 H MPV 9.8 Immature Gran % (Auto) Cancelled Neut % (Auto) Cancelled Lymph % (Auto) Cancelled Gilliam % (Auto) Cancelled Eos % (Auto) Cancelled Baso % (Auto) Cancelled Lymph # (Auto) Cancelled Gilliam # (Auto) Cancelled Eos # (Auto) Cancelled Baso # (Auto) Cancelled Abs Immat Gran (auto) Cancelled Absolute Neuts (auto) Cancelled Absolute Nucleated RBC 0.500 H Nucleated RBC % (auto) 1.7 H Neutrophils % (Manual) 66 Band Neutrophils % 8 H Lymphocytes % (Manual) 10 L Atypical Lymphs % (Man) Monocytes % (Manual) 12 H Eosinophils % (Manual) Basophils % (Manual) Metamyelocytes % 2 Myelocytes % 2 Abs Neuts (Manual) 21.7 H Lymphocytes # (Manual) 2.9 Atyp Lymphs # (Manual) Monocytes # (Manual) 3.5 H Eosinophils # (Manual) Basophils # (Manual) Metamyelocytes # 0.6 Myelocytes # 0.6 Nucleated RBCs 1 H Toxic Granulation PRESENT Dohle Bodies WBC Morphology Comment Platelet Estimate INCREASED Large Platelets PRESENT Plt Morphology Comment NOTE RBC Morphology NOTED Polychromasia 2+ (3-5) Hypochromasia Basophilic Stippling Microcytosis 1+ (5-14) Macrocytosis Spherocytes Target Cells Stomatocytes 1+ (5-14) [place] Cells Acanthocytes (Spur) Smear Tech's Comments Smear Path Review PT INR O2 Saturation ABG pH at Pt Temp ABG pCO2 at Pt Temp ABG pO2 at Pt Temp ABG HCO3 ABG Base Excess (Actual) VBG pH 7.26 L VBG pCO2 55 VBG pO2 58 VBG HCO3 25 VBG O2 Saturation 79.0 VBG Base Excess -2.0 Sodium 142 Potassium 4.1 Chloride 110 H Carbon Dioxide 25 Anion Gap 11 L BUN 20 H Creatinine 0.87 Estim Creat Clear Calc 75.5 Estimated GFR > 60 POC Glucose Random Glucose Fasting Glucose 155 H Estimat Average Glucose Hemoglobin A1c % Lactic Acid Lactic Acid F/U @ 2Hr Lactic Acid F/U @ 4Hr Calcium 9.0 D Phosphorus Magnesium Total Bilirubin AST ALT Alkaline Phosphatase Ammonia Troponin I High Sens C-Reactive Protein Total Protein Albumin Triglycerides Vitamin B12 Folate TSH Urine Color Urine Appearance Urine pH Ur Specific [place] Urine Protein Urine Glucose (UA) Urine Ketones Urine Blood Urine Nitrite Ur Leukocyte Esterase Urine RBC Urine WBC Ur Squamous Epith Cells Urine Bacteria Hyaline Casts Urine Osmolality Ur Random Sodium Stool Occult Blood Vancomycin Trough Random Vancomycin COVID-19 (PADMA) COVID-19 Clin Com Blood Type Antibody Screen Crossmatch 09/30/22 09/30/22 10/01/22 05:15 05:22 04:50 WBC RBC Hgb Hct MCV MCH MCHC RDW Plt Count MPV Immature Gran % (Auto) Neut % (Auto) Lymph % (Auto) Gilliam % (Auto) Eos % (Auto) Baso % (Auto) Lymph # (Auto) Gilliam # (Auto) Eos # (Auto) Baso # (Auto) Abs Immat Gran (auto) Absolute Neuts (auto) Absolute Nucleated RBC Nucleated RBC % (auto) Neutrophils % (Manual) Band Neutrophils % Lymphocytes % (Manual) Atypical Lymphs % (Man) Monocytes % (Manual) Eosinophils % (Manual) Basophils % (Manual) Metamyelocytes % Myelocytes % Abs Neuts (Manual) Lymphocytes # (Manual) Atyp Lymphs # (Manual) Monocytes # (Manual) Eosinophils # (Manual) Basophils # (Manual) Metamyelocytes # Myelocytes # Nucleated RBCs Toxic Granulation Dohle Bodies WBC Morphology Comment Platelet Estimate Large Platelets Plt Morphology Comment RBC Morphology Polychromasia Hypochromasia Basophilic Stippling Microcytosis Macrocytosis Spherocytes Target Cells Stomatocytes [place] Cells Acanthocytes (Spur) Smear Tech's Comments Smear Path Review PT INR O2 Saturation ABG pH at Pt Temp ABG pCO2 at Pt Temp ABG pO2 at Pt Temp ABG HCO3 ABG Base Excess (Actual) VBG pH 7.33 VBG pCO2 43 VBG pO2 44 VBG HCO3 23 VBG O2 Saturation 69.0 VBG Base Excess -2.2 Sodium 142 Potassium 3.9 Chloride 109 H Carbon Dioxide 25 Anion Gap 12 BUN 18 H Creatinine 0.85 Cancelled Estim Creat Clear Calc 80.3 Cancelled Estimated GFR > 60 Cancelled POC Glucose Random Glucose 158 H Fasting Glucose Estimat Average Glucose Hemoglobin A1c % Lactic Acid Lactic Acid F/U @ 2Hr Lactic Acid F/U @ 4Hr Calcium 9.1 Phosphorus Magnesium Total Bilirubin 0.8 AST 14 ALT 5 Alkaline Phosphatase 77 Ammonia Troponin I High Sens C-Reactive Protein 28.36 H Total Protein 5.7 L Albumin 2.9 L Triglycerides Vitamin B12 Folate TSH Urine Color Urine Appearance Urine pH Ur Specific [place] Urine Protein Urine Glucose (UA) Urine Ketones Urine Blood Urine Nitrite Ur Leukocyte Esterase Urine RBC Urine WBC Ur Squamous Epith Cells Urine Bacteria Hyaline Casts Urine Osmolality Ur Random Sodium Stool Occult Blood Vancomycin Trough Random Vancomycin COVID-19 (PADMA) COVID-19 Clin Com Blood Type Antibody Screen Crossmatch 10/01/22 10/01/22 10/01/22 04:50 04:50 05:02 WBC 31.5 H* RBC 2.82 L Hgb 8.0 L Hct 27.7 L MCV 98.2 H MCH 28.4 MCHC 28.9 L RDW 18.6 H Plt Count 621 H MPV 9.8 Immature Gran % (Auto) Neut % (Auto) Lymph % (Auto) Gilliam % (Auto) Eos % (Auto) Baso % (Auto) Lymph # (Auto) Gilliam # (Auto) Eos # (Auto) Baso # (Auto) Abs Immat Gran (auto) Absolute Neuts (auto) Absolute Nucleated RBC 0.780 H Nucleated RBC % (auto) 2.5 H Neutrophils % (Manual) 76 H Band Neutrophils % 6 H Lymphocytes % (Manual) 10 L Atypical Lymphs % (Man) 1 Monocytes % (Manual) 5 Eosinophils % (Manual) Basophils % (Manual) Metamyelocytes % 2 Myelocytes % Abs Neuts (Manual) 25.8 H Lymphocytes # (Manual) 3.2 Atyp Lymphs # (Manual) 0.3 Monocytes # (Manual) 1.6 H Eosinophils # (Manual) Basophils # (Manual) Metamyelocytes # 0.6 Myelocytes # Nucleated RBCs 2 H Toxic Granulation Dohle Bodies WBC Morphology Comment Platelet Estimate INCREASED Large Platelets Plt Morphology Comment NORMAL RBC Morphology NOTED Polychromasia 2+ (3-5) Hypochromasia 1+ (5-14) Basophilic Stippling Microcytosis Macrocytosis Spherocytes Target Cells Stomatocytes [place] Cells Acanthocytes (Spur) Smear Tech's Comments Smear Path Review PT INR O2 Saturation ABG pH at Pt Temp ABG pCO2 at Pt Temp ABG pO2 at Pt Temp ABG HCO3 ABG Base Excess (Actual) VBG pH 7.35 VBG pCO2 38 VBG pO2 47 VBG HCO3 21 L VBG O2 Saturation 75.0 VBG Base Excess -3.4 Sodium 137 Potassium 4.1 Chloride 108 Carbon Dioxide 23 Anion Gap 10 L BUN 12 Creatinine 0.83 Estim Creat Clear Calc 82.3 Estimated GFR > 60 POC Glucose Random Glucose 121 H Fasting Glucose Estimat Average Glucose Hemoglobin A1c % Lactic Acid Lactic Acid F/U @ 2Hr Lactic Acid F/U @ 4Hr Calcium 8.6 Phosphorus 1.8 L Magnesium Total Bilirubin 0.5 AST 33 H ALT 8 Alkaline Phosphatase 164 H Ammonia Troponin I High Sens C-Reactive Protein Total Protein 5.1 L Albumin 2.3 L Triglycerides Vitamin B12 Folate TSH Urine Color Urine Appearance Urine pH Ur Specific [place] Urine Protein Urine Glucose (UA) Urine Ketones Urine Blood Urine Nitrite Ur Leukocyte Esterase Urine RBC Urine WBC Ur Squamous Epith Cells Urine Bacteria Hyaline Casts Urine Osmolality Ur Random Sodium Stool Occult Blood Vancomycin Trough Random Vancomycin COVID-19 (PADMA) COVID-19 Clin Com Blood Type Antibody Screen Crossmatch 10/01/22 10/01/22 10/02/22 07:01 19:05 04:20 WBC RBC Hgb Hct MCV MCH MCHC RDW Plt Count MPV Immature Gran % (Auto) Neut % (Auto) Lymph % (Auto) Gilliam % (Auto) Eos % (Auto) Baso % (Auto) Lymph # (Auto) Gilliam # (Auto) Eos # (Auto) Baso # (Auto) Abs Immat Gran (auto) Absolute Neuts (auto) Absolute Nucleated RBC Nucleated RBC % (auto) Neutrophils % (Manual) Band Neutrophils % Lymphocytes % (Manual) Atypical Lymphs % (Man) Monocytes % (Manual) Eosinophils % (Manual) Basophils % (Manual) Metamyelocytes % Myelocytes % Abs Neuts (Manual) Lymphocytes # (Manual) Atyp Lymphs # (Manual) Monocytes # (Manual) Eosinophils # (Manual) Basophils # (Manual) Metamyelocytes # Myelocytes # Nucleated RBCs Toxic Granulation Dohle Bodies WBC Morphology Comment Platelet Estimate Large Platelets Plt Morphology Comment RBC Morphology Polychromasia Hypochromasia Basophilic Stippling Microcytosis Macrocytosis Spherocytes Target Cells Stomatocytes [place] Cells Acanthocytes (Spur) Smear Tech's Comments Smear Path Review PT INR O2 Saturation ABG pH at Pt Temp ABG pCO2 at Pt Temp ABG pO2 at Pt Temp ABG HCO3 ABG Base Excess (Actual) VBG pH VBG pCO2 VBG pO2 VBG HCO3 VBG O2 Saturation VBG Base Excess Sodium Potassium Chloride Carbon Dioxide Anion Gap BUN Creatinine Cancelled Estim Creat Clear Calc Cancelled Estimated GFR Cancelled POC Glucose Random Glucose Fasting Glucose Estimat Average Glucose Hemoglobin A1c % Lactic Acid Lactic Acid F/U @ 2Hr Lactic Acid F/U @ 4Hr Calcium Phosphorus Magnesium Total Bilirubin AST ALT Alkaline Phosphatase Ammonia Troponin I High Sens C-Reactive Protein Total Protein Albumin Triglycerides Vitamin B12 Folate TSH Urine Color Urine Appearance Urine pH Ur Specific [place] Urine Protein Urine Glucose (UA) Urine Ketones Urine Blood Urine Nitrite Ur Leukocyte Esterase Urine RBC Urine WBC Ur Squamous Epith Cells Urine Bacteria Hyaline Casts Urine Osmolality Ur Random Sodium Stool Occult Blood Vancomycin Trough 28.2 H* Random Vancomycin 23.6 H COVID-19 (PADMA) COVID-19 Clin Com Blood Type Antibody Screen Crossmatch 10/02/22 10/02/22 10/02/22 04:20 04:20 04:20 WBC 20.3 H RBC 2.59 L Hgb 7.3 L Hct 24.7 L MCV 95.4 MCH 28.2 MCHC 29.6 L RDW 18.9 H Plt Count 384 D MPV 9.2 L Immature Gran % (Auto) Cancelled Neut % (Auto) Cancelled Lymph % (Auto) Cancelled [place] % (Auto) Cancelled Eos % (Auto) Cancelled Baso % (Auto) Cancelled Lymph # (Auto) Cancelled Gilliam # (Auto) Cancelled Eos # (Auto) Cancelled Baso # (Auto) Cancelled Abs Immat Gran (auto) Cancelled Absolute Neuts (auto) Cancelled Absolute Nucleated RBC 0.160 H Nucleated RBC % (auto) 0.8 H Neutrophils % (Manual) 74 H Band Neutrophils % 2 L Lymphocytes % (Manual) 19 L Atypical Lymphs % (Man) Monocytes % (Manual) 4 Eosinophils % (Manual) Basophils % (Manual) Metamyelocytes % Myelocytes % 1 Abs Neuts (Manual) 15.4 H Lymphocytes # (Manual) 3.9 Atyp Lymphs # (Manual) Monocytes # (Manual) 0.8 Eosinophils # (Manual) Basophils # (Manual) Metamyelocytes # Myelocytes # 0.2 Nucleated RBCs 1 H Toxic Granulation Dohle Bodies WBC Morphology Comment Platelet Estimate NORMAL Large Platelets Plt Morphology Comment NORMAL RBC Morphology NOTED Polychromasia 1+ (0-2) Hypochromasia 1+ (5-14) Basophilic Stippling Microcytosis Macrocytosis Spherocytes Target Cells Stomatocytes [place] Cells Acanthocytes (Spur) Smear Tech's Comments Smear Path Review PT INR O2 Saturation ABG pH at Pt Temp ABG pCO2 at Pt Temp ABG pO2 at Pt Temp ABG HCO3 ABG Base Excess (Actual) VBG pH VBG pCO2 VBG pO2 VBG HCO3 VBG O2 Saturation VBG Base Excess Sodium 144 Potassium 3.7 Chloride 114 H Carbon Dioxide 24 Anion Gap 10 L BUN 9 Creatinine 0.78 Estim Creat Clear Calc 89.2 Estimated GFR > 60 POC Glucose Random Glucose 99 Fasting Glucose Estimat Average Glucose Hemoglobin A1c % Lactic Acid Lactic Acid F/U @ 2Hr Lactic Acid F/U @ 4Hr Calcium 8.8 Phosphorus Magnesium Total Bilirubin 0.4 AST 16 ALT 5 Alkaline Phosphatase 117 Ammonia Troponin I High Sens C-Reactive Protein Total Protein 4.9 L Albumin 2.4 L Triglycerides Vitamin B12 Folate TSH Urine Color Urine Appearance Urine pH Ur Specific [place] Urine Protein Urine Glucose (UA) Urine Ketones Urine Blood Urine Nitrite Ur Leukocyte Esterase Urine RBC Urine WBC Ur Squamous Epith Cells Urine Bacteria Hyaline Casts Urine Osmolality Ur Random Sodium Stool Occult Blood Vancomycin Trough 18.7 Random Vancomycin COVID-19 (PADMA) COVID-19 Clin Com Blood Type Antibody Screen Crossmatch 10/02/22 10/02/22 10/03/22 04:35 08:26 04:50 WBC RBC Hgb Hct MCV MCH MCHC RDW Plt Count MPV Immature Gran % (Auto) Neut % (Auto) Lymph % (Auto) Gilliam % (Auto) Eos % (Auto) Baso % (Auto) Lymph # (Auto) Gilliam # (Auto) Eos # (Auto) Baso # (Auto) Abs Immat Gran (auto) Absolute Neuts (auto) Absolute Nucleated RBC Nucleated RBC % (auto) Neutrophils % (Manual) Band Neutrophils % Lymphocytes % (Manual) Atypical Lymphs % (Man) Monocytes % (Manual) Eosinophils % (Manual) Basophils % (Manual) Metamyelocytes % Myelocytes % Abs Neuts (Manual) Lymphocytes # (Manual) Atyp Lymphs # (Manual) Monocytes # (Manual) Eosinophils # (Manual) Basophils # (Manual) Metamyelocytes # Myelocytes # Nucleated RBCs Toxic Granulation Dohle Bodies WBC Morphology Comment Platelet Estimate Large Platelets Plt Morphology Comment RBC Morphology Polychromasia Hypochromasia Basophilic Stippling Microcytosis Macrocytosis Spherocytes Target Cells Stomatocytes [place] Cells Acanthocytes (Spur) Smear Tech's Comments Smear Path Review PT INR O2 Saturation ABG pH at Pt Temp ABG pCO2 at Pt Temp ABG pO2 at Pt Temp ABG HCO3 ABG Base Excess (Actual) VBG pH 7.46 H VBG pCO2 33 VBG pO2 33 VBG HCO3 24 VBG O2 Saturation 50.0 VBG Base Excess 0.7 Sodium 150 H Potassium 3.0 L Chloride 118 H Carbon Dioxide 22 Anion Gap 13 BUN 7 L Creatinine 0.81 Estim Creat Clear Calc 88.3 Estimated GFR > 60 POC Glucose Random Glucose 111 Fasting Glucose Estimat Average Glucose Hemoglobin A1c % Lactic Acid Lactic Acid F/U @ 2Hr Lactic Acid F/U @ 4Hr Calcium 9.0 Phosphorus 2.2 L Magnesium 1.7 Total Bilirubin AST ALT Alkaline Phosphatase Ammonia Troponin I High Sens C-Reactive Protein Total Protein Albumin 2.7 L Triglycerides Vitamin B12 Folate TSH Urine Color Urine Appearance Urine pH Ur Specific [place] Urine Protein Urine Glucose (UA) Urine Ketones Urine Blood Urine Nitrite Ur Leukocyte Esterase Urine RBC Urine WBC Ur Squamous Epith Cells Urine Bacteria Hyaline Casts Urine Osmolality Ur Random Sodium Stool Occult Blood NEGATIVE Vancomycin Trough Random Vancomycin COVID-19 (PADMA) COVID-19 Clin Com Blood Type Antibody Screen Crossmatch 10/03/22 10/03/22 10/03/22 04:50 04:50 06:15 WBC 17.2 H RBC 2.42 L Hgb 6.6 L* Hct 23.7 L MCV 97.9 MCH 27.3 MCHC 27.8 L RDW 19.7 H Plt Count 276 D MPV 9.6 Immature Gran % (Auto) Cancelled Neut % (Auto) Cancelled Lymph % (Auto) Cancelled Gilli[place] % (Auto) Cancelled Eos % (Auto) Cancelled Baso % (Auto) Cancelled Lymph # (Auto) Cancelled Gilliam # (Auto) Cancelled Eos # (Auto) Cancelled Baso # (Auto) Cancelled Abs Immat Gran (auto) Cancelled Absolute Neuts (auto) Cancelled Absolute Nucleated RBC 0.140 H Nucleated RBC % (auto) 0.8 H Neutrophils % (Manual) 75 H Band Neutrophils % 2 L Lymphocytes % (Manual) 19 L Atypical Lymphs % (Man) Monocytes % (Manual) 2 Eosinophils % (Manual) Basophils % (Manual) Metamyelocytes % 2 Myelocytes % Abs Neuts (Manual) 13.2 H Lymphocytes # (Manual) 3.3 Atyp Lymphs # (Manual) Monocytes # (Manual) 0.3 Eosinophils # (Manual) Basophils # (Manual) Metamyelocytes # 0.3 Myelocytes # Nucleated RBCs 1 H Toxic Granulation Dohle Bodies WBC Morphology Comment Platelet Estimate NORMAL Large Platelets Plt Morphology Comment NORMAL RBC Morphology NOTED Polychromasia 1+ (0-2) Hypochromasia 1+ (5-14) Basophilic Stippling Microcytosis Macrocytosis Spherocytes Target Cells 1+ (5-14) Stomatocytes [place] Cells Acanthocytes (Spur) Smear Tech's Comments Smear Path Review PT INR O2 Saturation ABG pH at Pt Temp ABG pCO2 at Pt Temp ABG pO2 at Pt Temp ABG HCO3 ABG Base Excess (Actual) VBG pH 7.44 H VBG pCO2 35 VBG pO2 41 VBG HCO3 24 VBG O2 Saturation 64.0 VBG Base Excess 0.5 Sodium Potassium Chloride Carbon Dioxide Anion Gap BUN Creatinine Estim Creat Clear Calc Estimated GFR POC Glucose Random Glucose Fasting Glucose Estimat Average Glucose Hemoglobin A1c % Lactic Acid Lactic Acid F/U @ 2Hr Lactic Acid F/U @ 4Hr Calcium Phosphorus Magnesium Total Bilirubin AST ALT Alkaline Phosphatase Ammonia Troponin I High Sens C-Reactive Protein Total Protein Albumin Triglycerides Vitamin B12 Folate TSH Urine Color Urine Appearance Urine pH Ur Specific [place] Urine Protein Urine Glucose (UA) Urine Ketones Urine Blood Urine Nitrite Ur Leukocyte Esterase Urine RBC Urine WBC Ur Squamous Epith Cells Urine Bacteria Hyaline Casts Urine Osmolality Ur Random Sodium Stool Occult Blood Vancomycin Trough Random Vancomycin COVID-19 (PADMA) COVID-19 Clin Com Blood Type A Positive Antibody Screen NEGATIVE Crossmatch See Detail 10/03/22 10/04/22 10/04/22 07:51 07:03 07:03 WBC 10.9 H RBC 3.10 L D Hgb 9.1 L D Hct 30.3 L D MCV 97.7 MCH 29.4 MCHC 30.0 L RDW 18.3 H Plt Count 177 D MPV 9.4 Immature Gran % (Auto) Cancelled Neut % (Auto) Cancelled Lymph % (Auto) Cancelled Gilliam % (Auto) Cancelled Eos % (Auto) Cancelled Baso % (Auto) Cancelled Lymph # (Auto) Cancelled Gilliam # (Auto) Cancelled Eos # (Auto) Cancelled Baso # (Auto) Cancelled Abs Immat Gran (auto) Cancelled Absolute Neuts (auto) Cancelled Absolute Nucleated RBC 0.080 H Nucleated RBC % (auto) 0.7 H Neutrophils % (Manual) 75 H Band Neutrophils % 8 H Lymphocytes % (Manual) 10 L Atypical Lymphs % (Man) Monocytes % (Manual) 4 Eosinophils % (Manual) Basophils % (Manual) Metamyelocytes % 1 Myelocytes % 2 Abs Neuts (Manual) 9.0 H Lymphocytes # (Manual) 1.1 L Atyp Lymphs # (Manual) Monocytes # (Manual) 0.4 Eosinophils # (Manual) Basophils # (Manual) Metamyelocytes # 0.1 Myelocytes # 0.2 Nucleated RBCs 1 H Toxic Granulation Dohle Bodies WBC Morphology Comment Platelet Estimate NORMAL Large Platelets Plt Morphology Comment NORMAL RBC Morphology NOTED Polychromasia Hypochromasia Basophilic Stippling Microcytosis Macrocytosis 1+ (5-14) Spherocytes 1+ (0-2) Target Cells Stomatocytes [place] Cells 1+ (0-2) Acanthocytes (Spur) Smear Tech's Comments Smear Path Review PT INR O2 Saturation ABG pH at Pt Temp ABG pCO2 at Pt Temp ABG pO2 at Pt Temp ABG HCO3 ABG Base Excess (Actual) VBG pH VBG pCO2 VBG pO2 VBG HCO3 VBG O2 Saturation VBG Base Excess Sodium Potassium Chloride Carbon Dioxide Anion Gap BUN Creatinine 0.87 Estim Creat Clear Calc 84.7 Estimated GFR > 60 POC Glucose Random Glucose Fasting Glucose Estimat Average Glucose Hemoglobin A1c % Lactic Acid Lactic Acid F/U @ 2Hr Lactic Acid F/U @ 4Hr Calcium Phosphorus Magnesium Total Bilirubin AST ALT Alkaline Phosphatase Ammonia Troponin I High Sens C-Reactive Protein Total Protein Albumin Triglycerides Vitamin B12 Folate TSH Urine Color Urine Appearance Urine pH Ur Specific [place] Urine Protein Urine Glucose (UA) Urine Ketones Urine Blood Urine Nitrite Ur Leukocyte Esterase Urine RBC Urine WBC Ur Squamous Epith Cells Urine Bacteria Hyaline Casts Urine Osmolality Ur Random Sodium Stool Occult Blood Vancomycin Trough Random Vancomycin 16.7 COVID-19 (PADMA) COVID-19 Clin Com Blood Type Antibody Screen Crossmatch 10/04/22 10/05/22 10/05/22 09:56 06:48 06:49 WBC RBC Hgb Hct MCV MCH MCHC RDW Plt Count MPV Immature Gran % (Auto) Neut % (Auto) Lymph % (Auto) Gilli[place] % (Auto) Eos % (Auto) Baso % (Auto) Lymph # (Auto) Gilliam # (Auto) Eos # (Auto) Baso # (Auto) Abs Immat Gran (auto) Absolute Neuts (auto) Absolute Nucleated RBC Nucleated RBC % (auto) Neutrophils % (Manual) Band Neutrophils % Lymphocytes % (Manual) Atypical Lymphs % (Man) Monocytes % (Manual) Eosinophils % (Manual) Basophils % (Manual) Metamyelocytes % Myelocytes % Abs Neuts (Manual) Lymphocytes # (Manual) Atyp Lymphs # (Manual) Monocytes # (Manual) Eosinophils # (Manual) Basophils # (Manual) Metamyelocytes # Myelocytes # Nucleated RBCs Toxic Granulation Dohle Bodies WBC Morphology Comment Platelet Estimate Large Platelets Plt Morphology Comment RBC Morphology Polychromasia Hypochromasia Basophilic Stippling Microcytosis Macrocytosis Spherocytes Target Cells Stomatocytes [place] Cells Acanthocytes (Spur) Smear Tech's Comments Smear Path Review PT INR O2 Saturation ABG pH at Pt Temp ABG pCO2 at Pt Temp ABG pO2 at Pt Temp ABG HCO3 ABG Base Excess (Actual) VBG pH VBG pCO2 VBG pO2 VBG HCO3 VBG O2 Saturation VBG Base Excess Sodium Potassium Chloride Carbon Dioxide Anion Gap BUN Creatinine 1.05 Estim Creat Clear Calc 67.7 Estimated GFR 53 POC Glucose Random Glucose Fasting Glucose Estimat Average Glucose Hemoglobin A1c % Lactic Acid Lactic Acid F/U @ 2Hr Lactic Acid F/U @ 4Hr Calcium Phosphorus Magnesium Total Bilirubin AST ALT Alkaline Phosphatase Ammonia Troponin I High Sens C-Reactive Protein Total Protein Albumin Triglycerides Vitamin B12 Folate TSH Urine Color Urine Appearance Urine pH Ur Specific [place] Urine Protein Urine Glucose (UA) Urine Ketones Urine Blood Urine Nitrite Ur Leukocyte Esterase Urine RBC Urine WBC Ur Squamous Epith Cells Urine Bacteria Hyaline Casts Urine Osmolality Ur Random Sodium Stool Occult Blood NEGATIVE Vancomycin Trough Random Vancomycin 22.0 H COVID-19 (PADMA) COVID-19 Clin Com Blood Type Antibody Screen Crossmatch 10/05/22 10/05/22 10/06/22 11:41 13:13 06:46 WBC RBC Hgb Hct MCV MCH MCHC RDW Plt Count MPV Immature Gran % (Auto) Neut % (Auto) Lymph % (Auto) Gilliam % (Auto) Eos % (Auto) Baso % (Auto) Lymph # (Auto) Gilliam # (Auto) Eos # (Auto) Baso # (Auto) Abs Immat Gran (auto) Absolute Neuts (auto) Absolute Nucleated RBC Nucleated RBC % (auto) Neutrophils % (Manual) Band Neutrophils % Lymphocytes % (Manual) Atypical Lymphs % (Man) Monocytes % (Manual) Eosinophils % (Manual) Basophils % (Manual) Metamyelocytes % Myelocytes % Abs Neuts (Manual) Lymphocytes # (Manual) Atyp Lymphs # (Manual) Monocytes # (Manual) Eosinophils # (Manual) Basophils # (Manual) Metamyelocytes # Myelocytes # Nucleated RBCs Toxic Granulation Dohle Bodies WBC Morphology Comment Platelet Estimate Large Platelets Plt Morphology Comment RBC Morphology Polychromasia Hypochromasia Basophilic Stippling Microcytosis Macrocytosis Spherocytes Target Cells Stomatocytes [place] Cells Acanthocytes (Spur) Smear Tech's Comments Smear Path Review PT INR O2 Saturation ABG pH at Pt Temp ABG pCO2 at Pt Temp ABG pO2 at Pt Temp ABG HCO3 ABG Base Excess (Actual) VBG pH VBG pCO2 VBG pO2 VBG HCO3 VBG O2 Saturation VBG Base Excess Sodium Potassium Chloride Carbon Dioxide Anion Gap BUN Creatinine 1.32 Estim Creat Clear Calc 55.6 Estimated GFR 41 POC Glucose Random Glucose Fasting Glucose Estimat Average Glucose Hemoglobin A1c % Lactic Acid Lactic Acid F/U @ 2Hr Lactic Acid F/U @ 4Hr Calcium Phosphorus Magnesium Total Bilirubin AST ALT Alkaline Phosphatase Ammonia Troponin I High Sens C-Reactive Protein Total Protein Albumin Triglycerides Vitamin B12 Folate TSH Urine Color Urine Appearance Urine pH Ur Specific [place] Urine Protein Urine Glucose (UA) Urine Ketones Urine Blood Urine Nitrite Ur Leukocyte Esterase Urine RBC Urine WBC Ur Squamous Epith Cells Urine Bacteria Hyaline Casts Urine Osmolality Ur Random Sodium Stool Occult Blood Vancomycin Trough Random Vancomycin 21.2 H COVID-19 (PADMA) Negative COVID-19 Clin Com See Note Blood Type Antibody Screen Crossmatch 10/06/22 10/07/22 10/07/22 18:59 02:15 02:15 WBC 16.6 H RBC 2.97 L Hgb 8.7 L Hct 30.1 L MCV 101.3 H MCH 29.3 MCHC 28.9 L RDW 19.0 H Plt Count 126 L D MPV 10.7 Immature Gran % (Auto) Neut % (Auto) Lymph % (Auto) [place]illiam % (Auto) Eos % (Auto) Baso % (Auto) Lymph # (Auto) Gilliam # (Auto) Eos # (Auto) Baso # (Auto) Abs Immat Gran (auto) Absolute Neuts (auto) Absolute Nucleated RBC 0.070 H Nucleated RBC % (auto) 0.4 H Neutrophils % (Manual) Band Neutrophils % Lymphocytes % (Manual) Atypical Lymphs % (Man) Monocytes % (Manual) Eosinophils % (Manual) Basophils % (Manual) Metamyelocytes % Myelocytes % Abs Neuts (Manual) Lymphocytes # (Manual) Atyp Lymphs # (Manual) Monocytes # (Manual) Eosinophils # (Manual) Basophils # (Manual) Metamyelocytes # Myelocytes # Nucleated RBCs Toxic Granulation Dohle Bodies WBC Morphology Comment Platelet Estimate Large Platelets Plt Morphology Comment RBC Morphology Polychromasia Hypochromasia Basophilic Stippling Microcytosis Macrocytosis Spherocytes Target Cells Stomatocytes [place] Cells Acanthocytes (Spur) Smear Tech's Comments Smear Path Review PT INR O2 Saturation ABG pH at Pt Temp ABG pCO2 at Pt Temp ABG pO2 at Pt Temp ABG HCO3 ABG Base Excess (Actual) VBG pH VBG pCO2 VBG pO2 VBG HCO3 VBG O2 Saturation VBG Base Excess Sodium 160 H* Potassium 2.8 L Chloride 126 H Carbon Dioxide 23 Anion Gap 14 BUN 18 H Creatinine 1.45 H Estim Creat Clear Calc 50.6 Estimated GFR 36 POC Glucose Random Glucose Fasting Glucose 84 Estimat Average Glucose Hemoglobin A1c % Lactic Acid Lactic Acid F/U @ 2Hr Lactic Acid F/U @ 4Hr Calcium 9.1 Phosphorus Magnesium Total Bilirubin AST ALT Alkaline Phosphatase Ammonia Troponin I High Sens C-Reactive Protein Total Protein Albumin Triglycerides Vitamin B12 Folate TSH Urine Color Urine Appearance Urine pH Ur Specific [place] Urine Protein Urine Glucose (UA) Urine Ketones Urine Blood Urine Nitrite Ur Leukocyte Esterase Urine RBC Urine WBC Ur Squamous Epith Cells Urine Bacteria Hyaline Casts Urine Osmolality Ur Random Sodium Stool Occult Blood Vancomycin Trough Random Vancomycin 20.4 H COVID-19 (PADMA) COVID-19 Clin Com Blood Type Antibody Screen Crossmatch 10/07/22 10/08/22 10/09/22 06:50 05:43 06:48 WBC 11.8 H RBC 3.05 L Hgb 8.8 L Hct 30.5 L MCV 100.0 H MCH 28.9 MCHC 28.9 L RDW 18.9 H Plt Count 119 L MPV 10.6 Immature Gran % (Auto) Cancelled Neut % (Auto) Cancelled Lymph % (Auto) Cancelled Gilliam % (Auto) Cancelled Eos % (Auto) Cancelled Baso % (Auto) Cancelled Lymph # (Auto) Cancelled Gilliam # (Auto) Cancelled Eos # (Auto) Cancelled Baso # (Auto) Cancelled Abs Immat Gran (auto) Cancelled Absolute Neuts (auto) Cancelled Absolute Nucleated RBC 0.040 H Nucleated RBC % (auto) 0.3 H Neutrophils % (Manual) 64 Band Neutrophils % 4 Lymphocytes % (Manual) 17 L Atypical Lymphs % (Man) Monocytes % (Manual) 7 Eosinophils % (Manual) 2 Basophils % (Manual) Metamyelocytes % 3 Myelocytes % 3 Abs Neuts (Manual) 8.0 Lymphocytes # (Manual) 2.0 Atyp Lymphs # (Manual) Monocytes # (Manual) 0.8 Eosinophils # (Manual) 0.2 Basophils # (Manual) Metamyelocytes # 0.4 Myelocytes # 0.4 Nucleated RBCs Toxic Granulation Dohle Bodies WBC Morphology Comment Platelet Estimate DECREASED Large Platelets Plt Morphology Comment NORMAL RBC Morphology NOTED Polychromasia Hypochromasia 1+ (5-14) Basophilic Stippling Microcytosis Macrocytosis Spherocytes Target Cells Stomatocytes [place] Cells Acanthocytes (Spur) Smear Tech's Comments Smear Path Review PT INR O2 Saturation ABG pH at Pt Temp ABG pCO2 at Pt Temp ABG pO2 at Pt Temp ABG HCO3 ABG Base Excess (Actual) VBG pH VBG pCO2 VBG pO2 VBG HCO3 VBG O2 Saturation VBG Base Excess Sodium 151 H Potassium 2.6 L Chloride 119 H Carbon Dioxide 23 Anion Gap 12 BUN 14 Creatinine 1.26 Estim Creat Clear Calc 58.8 Estimated GFR 43 POC Glucose Random Glucose Fasting Glucose 123 H Estimat Average Glucose Hemoglobin A1c % Lactic Acid Lactic Acid F/U @ 2Hr Lactic Acid F/U @ 4Hr Calcium 8.6 Phosphorus Magnesium 1.8 Total Bilirubin AST ALT Alkaline Phosphatase Ammonia Troponin I High Sens C-Reactive Protein Total Protein Albumin Triglycerides Vitamin B12 Folate TSH Urine Color Urine Appearance Urine pH Ur Specific [place] Urine Protein Urine Glucose (UA) Urine Ketones Urine Blood Urine Nitrite Ur Leukocyte Esterase Urine RBC Urine WBC Ur Squamous Epith Cells Urine Bacteria Hyaline Casts Urine Osmolality Ur Random Sodium Stool Occult Blood Vancomycin Trough Random Vancomycin 17.9 COVID-19 (PADMA) COVID-19 Clin Com Blood Type Antibody Screen Crossmatch 10/09/22 10/10/22 10/10/22 06:48 07:17 07:17 WBC 14.3 H RBC 3.22 L Hgb 9.5 L Hct 32.2 L MCV 100.0 H MCH 29.5 MCHC 29.5 L RDW 18.6 H Plt Count 123 L MPV 11.6 Immature Gran % (Auto) Cancelled Neut % (Auto) Cancelled Lymph % (Auto) Cancelled Gilliam % (Auto) Cancelled Eos % (Auto) Cancelled Baso % (Auto) Cancelled Lymph # (Auto) Cancelled Gilliam # (Auto) Cancelled Eos # (Auto) Cancelled Baso # (Auto) Cancelled Abs Immat Gran (auto) Cancelled Absolute Neuts (auto) Cancelled Absolute Nucleated RBC 0.030 H Nucleated RBC % (auto) 0.2 Neutrophils % (Manual) 66 Band Neutrophils % 3 Lymphocytes % (Manual) 17 L Atypical Lymphs % (Man) Monocytes % (Manual) 5 Eosinophils % (Manual) 5 H Basophils % (Manual) Metamyelocytes % 1 Myelocytes % 3 Abs Neuts (Manual) 9.9 H Lymphocytes # (Manual) 2.4 Atyp Lymphs # (Manual) Monocytes # (Manual) 0.7 Eosinophils # (Manual) 0.7 H Basophils # (Manual) Metamyelocytes # 0.1 Myelocytes # 0.4 Nucleated RBCs Toxic Granulation Dohle Bodies WBC Morphology Comment Platelet Estimate DECREASED Large Platelets Plt Morphology Comment NORMAL RBC Morphology NOTED Polychromasia 1+ (0-2) Hypochromasia 1+ (5-14) Basophilic Stippling Microcytosis Macrocytosis Spherocytes Target Cells Stomatocytes [place] Cells Acanthocytes (Spur) Smear Tech's Comments Smear Path Review PT INR O2 Saturation ABG pH at Pt Temp ABG pCO2 at Pt Temp ABG pO2 at Pt Temp ABG HCO3 ABG Base Excess (Actual) VBG pH VBG pCO2 VBG pO2 VBG HCO3 VBG O2 Saturation VBG Base Excess Sodium 152 H 151 H Potassium 2.8 L 2.9 L Chloride 121 H 123 H Carbon Dioxide 23 21 L Anion Gap 11 L 10 L BUN 12 10 Creatinine 1.10 0.92 Estim Creat Clear Calc 63.4 75.8 Estimated GFR 50 > 60 POC Glucose Random Glucose Fasting Glucose 126 H 103 H Estimat Average Glucose Hemoglobin A1c % Lactic Acid Lactic Acid F/U @ 2Hr Lactic Acid F/U @ 4Hr Calcium 9.0 9.2 Phosphorus Magnesium 2.1 2.0 Total Bilirubin 0.2 0.2 AST 11 11 ALT 5 < 5 Alkaline Phosphatase 61 68 Ammonia Troponin I High Sens C-Reactive Protein Total Protein 4.9 L 5.1 L Albumin 2.1 L 2.2 L Triglycerides Vitamin B12 1381 H Folate 3.3 L TSH Urine Color Urine Appearance Urine pH Ur Specific [place] Urine Protein Urine Glucose (UA) Urine Ketones Urine Blood Urine Nitrite Ur Leukocyte Esterase Urine RBC Urine WBC Ur Squamous Epith Cells Urine Bacteria Hyaline Casts Urine Osmolality Ur Random Sodium Stool Occult Blood Vancomycin Trough Random Vancomycin COVID-19 (PADMA) COVID-19 Clin Com Blood Type Antibody Screen Crossmatch 10/10/22 10/10/22 10/10/22 07:21 07:21 07:21 WBC Cancelled RBC Cancelled Hgb Cancelled Hct Cancelled MCV Cancelled MCH Cancelled MCHC Cancelled RDW Cancelled Plt Count Cancelled MPV Cancelled Immature Gran % (Auto) Neut % (Auto) Lymph % (Auto) Gilliam % (Auto) Eos % (Auto) Baso % (Auto) Lymph # (Auto) Gilliam # (Auto) Eos # (Auto) Baso # (Auto) Abs Immat Gran (auto) Absolute Neuts (auto) Absolute Nucleated RBC Cancelled Nucleated RBC % (auto) Cancelled Neutrophils % (Manual) Band Neutrophils % Lymphocytes % (Manual) Atypical Lymphs % (Man) Monocytes % (Manual) Eosinophils % (Manual) Basophils % (Manual) Metamyelocytes % Myelocytes % Abs Neuts (Manual) Lymphocytes # (Manual) Atyp Lymphs # (Manual) Monocytes # (Manual) Eosinophils # (Manual) Basophils # (Manual) Metamyelocytes # Myelocytes # Nucleated RBCs Toxic Granulation Dohle Bodies WBC Morphology Comment Platelet Estimate Large Platelets Plt Morphology Comment RBC Morphology Polychromasia Hypochromasia Basophilic Stippling Microcytosis Macrocytosis Spherocytes Target Cells Stomatocytes [place] Cells Acanthocytes (Spur) Smear Tech's Comments Smear Path Review PT INR O2 Saturation ABG pH at Pt Temp ABG pCO2 at Pt Temp ABG pO2 at Pt Temp ABG HCO3 ABG Base Excess (Actual) VBG pH VBG pCO2 VBG pO2 VBG HCO3 VBG O2 Saturation VBG Base Excess Sodium Cancelled Potassium Cancelled Chloride Cancelled Carbon Dioxide Cancelled Anion Gap Cancelled BUN Cancelled Creatinine Cancelled Estim Creat Clear Calc Cancelled Estimated GFR Cancelled POC Glucose Random Glucose Cancelled Fasting Glucose Estimat Average Glucose Hemoglobin A1c % Lactic Acid Lactic Acid F/U @ 2Hr Lactic Acid F/U @ 4Hr Calcium Cancelled Phosphorus Magnesium Cancelled Total Bilirubin AST ALT Alkaline Phosphatase Ammonia Troponin I High Sens 5.8 C-Reactive Protein Total Protein Albumin Triglycerides Vitamin B12 Folate TSH 9.43 H Urine Color Urine Appearance Urine pH Ur Specific [place] Urine Protein Urine Glucose (UA) Urine Ketones Urine Blood Urine Nitrite Ur Leukocyte Esterase Urine RBC Urine WBC Ur Squamous Epith Cells Urine Bacteria Hyaline Casts Urine Osmolality Ur Random Sodium Stool Occult Blood Vancomycin Trough Random Vancomycin COVID-19 (PADMA) COVID-19 Clin Com Blood Type Antibody Screen Crossmatch 10/10/22 10/10/22 10/11/22 11:52 18:25 07:48 WBC 12.6 H RBC 2.94 L Hgb 8.5 L Hct 29.9 L MCV 101.7 H MCH 28.9 MCHC 28.4 L RDW 19.0 H Plt Count 117 L MPV 11.1 Immature Gran % (Auto) Cancelled Neut % (Auto) Cancelled Lymph % (Auto) Cancelled Gilliam % (Auto) Cancelled Eos % (Auto) Cancelled Baso % (Auto) Cancelled Lymph # (Auto) Cancelled Gilliam # (Auto) Cancelled Eos # (Auto) Cancelled Baso # (Auto) Cancelled Abs Immat Gran (auto) Cancelled Absolute Neuts (auto) Cancelled Absolute Nucleated RBC 0.030 H Nucleated RBC % (auto) 0.2 Neutrophils % (Manual) 57 Band Neutrophils % 7 H Lymphocytes % (Manual) 22 Atypical Lymphs % (Man) Monocytes % (Manual) 8 Eosinophils % (Manual) Basophils % (Manual) Metamyelocytes % 4 Myelocytes % 2 Abs Neuts (Manual) 8.1 Lymphocytes # (Manual) 2.8 Atyp Lymphs # (Manual) Monocytes # (Manual) 1.0 Eosinophils # (Manual) Basophils # (Manual) Metamyelocytes # 0.5 Myelocytes # 0.3 Nucleated RBCs Toxic Granulation Dohle Bodies WBC Morphology Comment Platelet Estimate DECREASED Large Platelets Plt Morphology Comment NORM RBC Morphology NOTED Polychromasia 1+ (0-2) Hypochromasia 1+ (5-14) Basophilic Stippling Microcytosis 1+ (5-14) Macrocytosis 1+ (5-14) Spherocytes Target Cells Stomatocytes [place] Cells Acanthocytes (Spur) Smear Tech's Comments Smear Path Review PT INR O2 Saturation ABG pH at Pt Temp ABG pCO2 at Pt Temp ABG pO2 at Pt Temp ABG HCO3 ABG Base Excess (Actual) VBG pH VBG pCO2 VBG pO2 VBG HCO3 VBG O2 Saturation VBG Base Excess Sodium 154 H Potassium 3.4 Chloride 126 H Carbon Dioxide 22 Anion Gap 9 L BUN 9 Creatinine 0.94 Estim Creat Clear Calc 74.2 Estimated GFR > 60 POC Glucose Random Glucose 80 Fasting Glucose Estimat Average Glucose Hemoglobin A1c % Lactic Acid Lactic Acid F/U @ 2Hr Lactic Acid F/U @ 4Hr Calcium 9.2 Phosphorus 3.1 Magnesium Total Bilirubin AST ALT Alkaline Phosphatase Ammonia Troponin I High Sens C-Reactive Protein Total Protein Albumin Triglycerides Vitamin B12 Folate TSH Urine Color Urine Appearance Urine pH Ur Specific [place] Urine Protein Urine Glucose (UA) Urine Ketones Urine Blood Urine Nitrite Ur Leukocyte Esterase Urine RBC Urine WBC Ur Squamous Epith Cells Urine Bacteria Hyaline Casts Urine Osmolality Ur Random Sodium Stool Occult Blood Vancomycin Trough Random Vancomycin COVID-19 (PADMA) COVID-19 Clin Com Blood Type Antibody Screen Crossmatch 10/11/22 10/11/22 10/12/22 07:48 07:48 06:17 WBC RBC Hgb Hct MCV MCH MCHC RDW Plt Count MPV Immature Gran % (Auto) Neut % (Auto) Lymph % (Auto) [place] % (Auto) Eos % (Auto) Baso % (Auto) Lymph # (Auto) [place] # (Auto) Eos # (Auto) Baso # (Auto) Abs Immat Gran (auto) Absolute Neuts (auto) Absolute Nucleated RBC Nucleated RBC % (auto) Neutrophils % (Manual) Band Neutrophils % Lymphocytes % (Manual) Atypical Lymphs % (Man) Monocytes % (Manual) Eosinophils % (Manual) Basophils % (Manual) Metamyelocytes % Myelocytes % Abs Neuts (Manual) Lymphocytes # (Manual) Atyp Lymphs # (Manual) Monocytes # (Manual) Eosinophils # (Manual) Basophils # (Manual) Metamyelocytes # Myelocytes # Nucleated RBCs Toxic Granulation Dohle Bodies WBC Morphology Comment Platelet Estimate Large Platelets Plt Morphology Comment RBC Morphology Polychromasia Hypochromasia Basophilic Stippling Microcytosis Macrocytosis Spherocytes Target Cells Stomatocytes [place] Cells Acanthocytes (Spur) Smear Tech's Comments Smear Path Review PT INR O2 Saturation ABG pH at Pt Temp ABG pCO2 at Pt Temp ABG pO2 at Pt Temp ABG HCO3 ABG Base Excess (Actual) VBG pH VBG pCO2 VBG pO2 VBG HCO3 VBG O2 Saturation VBG Base Excess Sodium 156 H 160 H* Potassium 3.4 3.1 L Chloride 127 H 131 H Carbon Dioxide 22 21 L Anion Gap 10 L 11 L BUN 10 8 L Creatinine 0.92 0.95 Estim Creat Clear Calc 75.8 73.4 Estimated GFR > 60 59 POC Glucose Random Glucose 124 H 93 Fasting Glucose 124 H Estimat Average Glucose Hemoglobin A1c % Lactic Acid Lactic Acid F/U @ 2Hr Lactic Acid F/U @ 4Hr Calcium 9.3 9.5 Phosphorus 3.1 3.1 Magnesium 2.1 2.1 Total Bilirubin 0.2 AST 12 ALT 5 Alkaline Phosphatase 63 Ammonia Troponin I High Sens C-Reactive Protein Total Protein 4.9 L Albumin 2.1 L Triglycerides 187 143 Vitamin B12 Folate TSH Urine Color Urine Appearance Urine pH Ur Specific [place] Urine Protein Urine Glucose (UA) Urine Ketones Urine Blood Urine Nitrite Ur Leukocyte Esterase Urine RBC Urine WBC Ur Squamous Epith Cells Urine Bacteria Hyaline Casts Urine Osmolality Ur Random Sodium Stool Occult Blood Vancomycin Trough Random Vancomycin COVID-19 (PADMA) COVID-19 Clin Com Blood Type Antibody Screen Crossmatch 10/12/22 10/12/22 10/13/22 16:36 16:36 05:09 WBC RBC Hgb Hct MCV MCH MCHC RDW Plt Count MPV Immature Gran % (Auto) Neut % (Auto) Lymph % (Auto) Gilliam % (Auto) Eos % (Auto) Baso % (Auto) Lymph # (Auto) [place]illiam # (Auto) Eos # (Auto) Baso # (Auto) Abs Immat Gran (auto) Absolute Neuts (auto) Absolute Nucleated RBC Nucleated RBC % (auto) Neutrophils % (Manual) Band Neutrophils % Lymphocytes % (Manual) Atypical Lymphs % (Man) Monocytes % (Manual) Eosinophils % (Manual) Basophils % (Manual) Metamyelocytes % Myelocytes % Abs Neuts (Manual) Lymphocytes # (Manual) Atyp Lymphs # (Manual) Monocytes # (Manual) Eosinophils # (Manual) Basophils # (Manual) Metamyelocytes # Myelocytes # Nucleated RBCs Toxic Granulation Dohle Bodies WBC Morphology Comment Platelet Estimate Large Platelets Plt Morphology Comment RBC Morphology Polychromasia Hypochromasia Basophilic Stippling Microcytosis Macrocytosis Spherocytes Target Cells Stomatocytes [place] Cells Acanthocytes (Spur) Smear Tech's Comments Smear Path Review PT INR O2 Saturation ABG pH at Pt Temp ABG pCO2 at Pt Temp ABG pO2 at Pt Temp ABG HCO3 ABG Base Excess (Actual) VBG pH VBG pCO2 VBG pO2 VBG HCO3 VBG O2 Saturation VBG Base Excess Sodium 155 H Potassium 3.9 D Chloride 127 H Carbon Dioxide 20 L Anion Gap 12 BUN 8 L Creatinine 1.07 Estim Creat Clear Calc 65.2 Estimated GFR 52 POC Glucose Random Glucose 241 H Fasting Glucose Estimat Average Glucose Hemoglobin A1c % Lactic Acid Lactic Acid F/U @ 2Hr Lactic Acid F/U @ 4Hr Calcium 9.3 Phosphorus 2.7 Magnesium 2.1 Total Bilirubin AST ALT Alkaline Phosphatase Ammonia Troponin I High Sens C-Reactive Protein Total Protein Albumin Triglycerides Vitamin B12 Folate TSH Urine Color Urine Appearance Urine pH Ur Specific [place] Urine Protein Urine Glucose (UA) Urine Ketones Urine Blood Urine Nitrite Ur Leukocyte Esterase Urine RBC Urine WBC Ur Squamous Epith Cells Urine Bacteria Hyaline Casts Urine Osmolality 181 L Ur Random Sodium 34.0 Stool Occult Blood Vancomycin Trough Random Vancomycin COVID-19 (PADMA) COVID-19 Clin Com Blood Type Antibody Screen Crossmatch 10/14/22 10/14/22 10/14/22 06:23 09:38 10:57 WBC RBC Hgb Hct MCV MCH MCHC RDW Plt Count MPV Immature Gran % (Auto) Neut % (Auto) Lymph % (Auto) Gilliam % (Auto) Eos % (Auto) Baso % (Auto) Lymph # (Auto) [place]illiam # (Auto) Eos # (Auto) Baso # (Auto) Abs Immat Gran (auto) Absolute Neuts (auto) Absolute Nucleated RBC Nucleated RBC % (auto) Neutrophils % (Manual) Band Neutrophils % Lymphocytes % (Manual) Atypical Lymphs % (Man) Monocytes % (Manual) Eosinophils % (Manual) Basophils % (Manual) Metamyelocytes % Myelocytes % Abs Neuts (Manual) Lymphocytes # (Manual) Atyp Lymphs # (Manual) Monocytes # (Manual) Eosinophils # (Manual) Basophils # (Manual) Metamyelocytes # Myelocytes # Nucleated RBCs Toxic Granulation Dohle Bodies WBC Morphology Comment Platelet Estimate Large Platelets Plt Morphology Comment RBC Morphology Polychromasia Hypochromasia Basophilic Stippling Microcytosis Macrocytosis Spherocytes Target Cells Stomatocytes [place] Cells Acanthocytes (Spur) Smear Tech's Comments Smear Path Review PT INR O2 Saturation ABG pH at Pt Temp ABG pCO2 at Pt Temp ABG pO2 at Pt Temp ABG HCO3 ABG Base Excess (Actual) VBG pH VBG pCO2 VBG pO2 VBG HCO3 VBG O2 Saturation VBG Base Excess Sodium 148 H Potassium 4.8 D Chloride 121 H Carbon Dioxide 23 Anion Gap 9 L BUN 15 Creatinine 1.30 Estim Creat Clear Calc 53.6 Estimated GFR 41 POC Glucose 508 H* 530 H* Random Glucose 576 H* Fasting Glucose Estimat Average Glucose Hemoglobin A1c % Lactic Acid Lactic Acid F/U @ 2Hr Lactic Acid F/U @ 4Hr Calcium 9.3 Phosphorus 2.8 Magnesium 2.0 Total Bilirubin AST ALT Alkaline Phosphatase Ammonia Troponin I High Sens C-Reactive Protein Total Protein Albumin 2.4 L Triglycerides 306 Vitamin B12 Folate TSH Urine Color Urine Appearance Urine pH Ur Specific [place] Urine Protein Urine Glucose (UA) Urine Ketones Urine Blood Urine Nitrite Ur Leukocyte Esterase Urine RBC Urine WBC Ur Squamous Epith Cells Urine Bacteria Hyaline Casts Urine Osmolality Ur Random Sodium Stool Occult Blood Vancomycin Trough Random Vancomycin COVID-19 (PADMA) COVID-19 Clin Com Blood Type Antibody Screen Crossmatch 10/14/22 10/14/22 10/14/22 11:05 12:14 14:14 WBC RBC Hgb Hct MCV MCH MCHC RDW Plt Count MPV Immature Gran % (Auto) Neut % (Auto) Lymph % (Auto) Gilliam % (Auto) Eos % (Auto) Baso % (Auto) Lymph # (Auto) Gilliam # (Auto) Eos # (Auto) Baso # (Auto) Abs Immat Gran (auto) Absolute Neuts (auto) Absolute Nucleated RBC Nucleated RBC % (auto) Neutrophils % (Manual) Band Neutrophils % Lymphocytes % (Manual) Atypical Lymphs % (Man) Monocytes % (Manual) Eosinophils % (Manual) Basophils % (Manual) Metamyelocytes % Myelocytes % Abs Neuts (Manual) Lymphocytes # (Manual) Atyp Lymphs # (Manual) Monocytes # (Manual) Eosinophils # (Manual) Basophils # (Manual) Metamyelocytes # Myelocytes # Nucleated RBCs Toxic Granulation Dohle Bodies WBC Morphology Comment Platelet Estimate Large Platelets Plt Morphology Comment RBC Morphology Polychromasia Hypochromasia Basophilic Stippling Microcytosis Macrocytosis Spherocytes Target Cells Stomatocytes [place] Cells Acanthocytes (Spur) Smear Tech's Comments Smear Path Review PT INR O2 Saturation ABG pH at Pt Temp ABG pCO2 at Pt Temp ABG pO2 at Pt Temp ABG HCO3 ABG Base Excess (Actual) VBG pH VBG pCO2 VBG pO2 VBG HCO3 VBG O2 Saturation VBG Base Excess Sodium Potassium Chloride Carbon Dioxide Anion Gap BUN Creatinine Estim Creat Clear Calc Estimated GFR POC Glucose 559 H* 508 H* 479 H* Random Glucose Fasting Glucose Estimat Average Glucose Hemoglobin A1c % Lactic Acid Lactic Acid F/U @ 2Hr Lactic Acid F/U @ 4Hr Calcium Phosphorus Magnesium Total Bilirubin AST ALT Alkaline Phosphatase Ammonia Troponin I High Sens C-Reactive Protein Total Protein Albumin Triglycerides Vitamin B12 Folate TSH Urine Color Urine Appearance Urine pH Ur Specific [place] Urine Protein Urine Glucose (UA) Urine Ketones Urine Blood Urine Nitrite Ur Leukocyte Esterase Urine RBC Urine WBC Ur Squamous Epith Cells Urine Bacteria Hyaline Casts Urine Osmolality Ur Random Sodium Stool Occult Blood Vancomycin Trough Random Vancomycin COVID-19 (PADMA) COVID-19 Clin Com Blood Type Antibody Screen Crossmatch 10/14/22 10/14/22 10/15/22 15:59 19:45 05:43 WBC 9.0 RBC 2.59 L Hgb 7.6 L Hct 27.2 L MCV 105.0 H MCH 29.3 MCHC 27.9 L RDW 19.0 H Plt Count 77 L D MPV 12.1 Immature Gran % (Auto) Neut % (Auto) Lymph % (Auto) Gilliam % (Auto) Eos % (Auto) Baso % (Auto) Lymph # (Auto) Gilliam # (Auto) Eos # (Auto) Baso # (Auto) Abs Immat Gran (auto) Absolute Neuts (auto) Absolute Nucleated RBC 0.000 Nucleated RBC % (auto) 0.0 Neutrophils % (Manual) Band Neutrophils % Lymphocytes % (Manual) Atypical Lymphs % (Man) Monocytes % (Manual) Eosinophils % (Manual) Basophils % (Manual) Metamyelocytes % Myelocytes % Abs Neuts (Manual) Lymphocytes # (Manual) Atyp Lymphs # (Manual) Monocytes # (Manual) Eosinophils # (Manual) Basophils # (Manual) Metamyelocytes # Myelocytes # Nucleated RBCs Toxic Granulation Dohle Bodies WBC Morphology Comment Platelet Estimate Large Platelets Plt Morphology Comment RBC Morphology Polychromasia Hypochromasia Basophilic Stippling Microcytosis Macrocytosis Spherocytes Target Cells Stomatocytes [place] Cells Acanthocytes (Spur) Smear Tech's Comments Smear Path Review PT INR O2 Saturation ABG pH at Pt Temp ABG pCO2 at Pt Temp ABG pO2 at Pt Temp ABG HCO3 ABG Base Excess (Actual) VBG pH VBG pCO2 VBG pO2 VBG HCO3 VBG O2 Saturation VBG Base Excess Sodium Potassium Chloride Carbon Dioxide Anion Gap BUN Creatinine Estim Creat Clear Calc Estimated GFR POC Glucose 417 H* 316 H Random Glucose Fasting Glucose Estimat Average Glucose Hemoglobin A1c % Lactic Acid Lactic Acid F/U @ 2Hr Lactic Acid F/U @ 4Hr Calcium Phosphorus Magnesium Total Bilirubin AST ALT Alkaline Phosphatase Ammonia Troponin I High Sens C-Reactive Protein Total Protein Albumin Triglycerides Vitamin B12 Folate TSH Urine Color Urine Appearance Urine pH Ur Specific [place] Urine Protein Urine Glucose (UA) Urine Ketones Urine Blood Urine Nitrite Ur Leukocyte Esterase Urine RBC Urine WBC Ur Squamous Epith Cells Urine Bacteria Hyaline Casts Urine Osmolality Ur Random Sodium Stool Occult Blood Vancomycin Trough Random Vancomycin COVID-19 (PADMA) COVID-19 Clin Com Blood Type Antibody Screen Crossmatch 10/15/22 10/15/22 10/15/22 05:43 07:27 11:36 WBC RBC Hgb Hct MCV MCH MCHC RDW Plt Count MPV Immature Gran % (Auto) Neut % (Auto) Lymph % (Auto) [place]illi[place] % (Auto) Eos % (Auto) Baso % (Auto) Lymph # (Auto) [place]illiam # (Auto) Eos # (Auto) Baso # (Auto) Abs Immat Gran (auto) Absolute Neuts (auto) Absolute Nucleated RBC Nucleated RBC % (auto) Neutrophils % (Manual) Band Neutrophils % Lymphocytes % (Manual) Atypical Lymphs % (Man) Monocytes % (Manual) Eosinophils % (Manual) Basophils % (Manual) Metamyelocytes % Myelocytes % Abs Neuts (Manual) Lymphocytes # (Manual) Atyp Lymphs # (Manual) Monocytes # (Manual) Eosinophils # (Manual) Basophils # (Manual) Metamyelocytes # Myelocytes # Nucleated RBCs Toxic Granulation Dohle Bodies WBC Morphology Comment Platelet Estimate Large Platelets Plt Morphology Comment RBC Morphology Polychromasia Hypochromasia Basophilic Stippling Microcytosis Macrocytosis Spherocytes Target Cells Stomatocytes [place] Cells Acanthocytes (Spur) Smear Tech's Comments Smear Path Review PT INR O2 Saturation ABG pH at Pt Temp ABG pCO2 at Pt Temp ABG pO2 at Pt Temp ABG HCO3 ABG Base Excess (Actual) VBG pH VBG pCO2 VBG pO2 VBG HCO3 VBG O2 Saturation VBG Base Excess Sodium 155 H Potassium 4.8 Chloride 126 H Carbon Dioxide 23 Anion Gap 11 L BUN 22 H Creatinine 1.03 Estim Creat Clear Calc 67.7 Estimated GFR 54 POC Glucose 206 H 248 H Random Glucose 231 H Fasting Glucose Estimat Average Glucose Hemoglobin A1c % Lactic Acid Lactic Acid F/U @ 2Hr Lactic Acid F/U @ 4Hr Calcium 10.5 H D Phosphorus 3.4 Magnesium 2.2 Total Bilirubin AST ALT Alkaline Phosphatase Ammonia Troponin I High Sens C-Reactive Protein Total Protein Albumin 2.5 L Triglycerides TNP Vitamin B12 Folate TSH Urine Color Urine Appearance Urine pH Ur Specific [place] Urine Protein Urine Glucose (UA) Urine Ketones Urine Blood Urine Nitrite Ur Leukocyte Esterase Urine RBC Urine WBC Ur Squamous Epith Cells Urine Bacteria Hyaline Casts Urine Osmolality Ur Random Sodium Stool Occult Blood Vancomycin Trough Random Vancomycin COVID-19 (PADMA) COVID-19 Clin Com Blood Type Antibody Screen Crossmatch 10/15/22 10/15/22 10/15/22 13:46 15:15 15:54 WBC 8.1 RBC 2.39 L Hgb 7.0 L* Hct 24.7 L MCV 103.3 H MCH 29.3 MCHC 28.3 L RDW 18.6 H Plt Count 88 L MPV 11.2 Immature Gran % (Auto) Neut % (Auto) Lymph % (Auto) [place]illi[place] % (Auto) Eos % (Auto) Baso % (Auto) Lymph # (Auto) [place]illiam # (Auto) Eos # (Auto) Baso # (Auto) Abs Immat Gran (auto) Absolute Neuts (auto) Absolute Nucleated RBC 0.000 Nucleated RBC % (auto) 0.0 Neutrophils % (Manual) Band Neutrophils % Lymphocytes % (Manual) Atypical Lymphs % (Man) Monocytes % (Manual) Eosinophils % (Manual) Basophils % (Manual) Metamyelocytes % Myelocytes % Abs Neuts (Manual) Lymphocytes # (Manual) Atyp Lymphs # (Manual) Monocytes # (Manual) Eosinophils # (Manual) Basophils # (Manual) Metamyelocytes # Myelocytes # Nucleated RBCs Toxic Granulation Dohle Bodies WBC Morphology Comment Platelet Estimate Large Platelets Plt Morphology Comment RBC Morphology Polychromasia Hypochromasia Basophilic Stippling Microcytosis Macrocytosis Spherocytes Target Cells Stomatocytes [place] Cells Acanthocytes (Spur) Smear Tech's Comments Smear Path Review PT INR O2 Saturation ABG pH at Pt Temp ABG pCO2 at Pt Temp ABG pO2 at Pt Temp ABG HCO3 ABG Base Excess (Actual) VBG pH VBG pCO2 VBG pO2 VBG HCO3 VBG O2 Saturation VBG Base Excess Sodium Potassium Chloride Carbon Dioxide Anion Gap BUN Creatinine Estim Creat Clear Calc Estimated GFR POC Glucose 247 H Random Glucose Fasting Glucose Estimat Average Glucose Hemoglobin A1c % Lactic Acid Lactic Acid F/U @ 2Hr Lactic Acid F/U @ 4Hr Calcium Phosphorus Magnesium Total Bilirubin AST ALT Alkaline Phosphatase Ammonia Troponin I High Sens C-Reactive Protein Total Protein Albumin Triglycerides Vitamin B12 Folate TSH Urine Color Urine Appearance Urine pH Ur Specific [place] Urine Protein Urine Glucose (UA) Urine Ketones Urine Blood Urine Nitrite Ur Leukocyte Esterase Urine RBC Urine WBC Ur Squamous Epith Cells Urine Bacteria Hyaline Casts Urine Osmolality Ur Random Sodium Stool Occult Blood Vancomycin Trough Random Vancomycin COVID-19 (PADMA) COVID-19 Clin Com Blood Type A Positive Antibody Screen NEGATIVE Crossmatch See Detail 10/15/22 10/16/22 10/16/22 19:51 04:10 04:10 WBC 8.3 RBC 2.88 L D Hgb 8.6 L D Hct 29.2 L MCV 101.4 H MCH 29.9 MCHC 29.5 L RDW 17.9 H Plt Count 88 L MPV 11.8 Immature Gran % (Auto) Neut % (Auto) Lymph % (Auto) [place] % (Auto) Eos % (Auto) Baso % (Auto) Lymph # (Auto) [place] # (Auto) Eos # (Auto) Baso # (Auto) Abs Immat Gran (auto) Absolute Neuts (auto) Absolute Nucleated RBC 0.000 Nucleated RBC % (auto) 0.0 Neutrophils % (Manual) Band Neutrophils % Lymphocytes % (Manual) Atypical Lymphs % (Man) Monocytes % (Manual) Eosinophils % (Manual) Basophils % (Manual) Metamyelocytes % Myelocytes % Abs Neuts (Manual) Lymphocytes # (Manual) Atyp Lymphs # (Manual) Monocytes # (Manual) Eosinophils # (Manual) Basophils # (Manual) Metamyelocytes # Myelocytes # Nucleated RBCs Toxic Granulation Dohle Bodies WBC Morphology Comment Platelet Estimate Large Platelets Plt Morphology Comment RBC Morphology Polychromasia Hypochromasia Basophilic Stippling Microcytosis Macrocytosis Spherocytes Target Cells Stomatocytes [place] Cells Acanthocytes (Spur) Smear Tech's Comments Smear Path Review PT INR O2 Saturation ABG pH at Pt Temp ABG pCO2 at Pt Temp ABG pO2 at Pt Temp ABG HCO3 ABG Base Excess (Actual) VBG pH VBG pCO2 VBG pO2 VBG HCO3 VBG O2 Saturation VBG Base Excess Sodium 151 H Potassium 4.8 Chloride 121 H Carbon Dioxide 25 Anion Gap 10 L BUN 27 H Creatinine 1.00 Estim Creat Clear Calc 69.7 Estimated GFR 56 POC Glucose 164 H Random Glucose 301 H Fasting Glucose Estimat Average Glucose Hemoglobin A1c % Lactic Acid Lactic Acid F/U @ 2Hr Lactic Acid F/U @ 4Hr Calcium 10.5 H Phosphorus 3.6 Magnesium 2.1 Total Bilirubin AST ALT Alkaline Phosphatase Ammonia Troponin I High Sens C-Reactive Protein Total Protein Albumin Triglycerides Vitamin B12 Folate TSH Urine Color Urine Appearance Urine pH Ur Specific [place] Urine Protein Urine Glucose (UA) Urine Ketones Urine Blood Urine Nitrite Ur Leukocyte Esterase Urine RBC Urine WBC Ur Squamous Epith Cells Urine Bacteria Hyaline Casts Urine Osmolality Ur Random Sodium Stool Occult Blood Vancomycin Trough Random Vancomycin COVID-19 (PADMA) COVID-19 Clin Com Blood Type Antibody Screen Crossmatch 10/16/22 10/16/22 10/16/22 04:10 04:10 07:11 WBC RBC Hgb Hct MCV MCH MCHC RDW Plt Count MPV Immature Gran % (Auto) Neut % (Auto) Lymph % (Auto) [place] % (Auto) Eos % (Auto) Baso % (Auto) Lymph # (Auto) [place] # (Auto) Eos # (Auto) Baso # (Auto) Abs Immat Gran (auto) Absolute Neuts (auto) Absolute Nucleated RBC Nucleated RBC % (auto) Neutrophils % (Manual) Band Neutrophils % Lymphocytes % (Manual) Atypical Lymphs % (Man) Monocytes % (Manual) Eosinophils % (Manual) Basophils % (Manual) Metamyelocytes % Myelocytes % Abs Neuts (Manual) Lymphocytes # (Manual) Atyp Lymphs # (Manual) Monocytes # (Manual) Eosinophils # (Manual) Basophils # (Manual) Metamyelocytes # Myelocytes # Nucleated RBCs Toxic Granulation Dohle Bodies WBC Morphology Comment Platelet Estimate Large Platelets Plt Morphology Comment RBC Morphology Polychromasia Hypochromasia Basophilic Stippling Microcytosis Macrocytosis Spherocytes Target Cells Stomatocytes [place] Cells Acanthocytes (Spur) Smear Tech's Comments Smear Path Review PT 13.6 H INR 1.2 H O2 Saturation ABG pH at Pt Temp ABG pCO2 at Pt Temp ABG pO2 at Pt Temp ABG HCO3 ABG Base Excess (Actual) VBG pH VBG pCO2 VBG pO2 VBG HCO3 VBG O2 Saturation VBG Base Excess Sodium Potassium Chloride Carbon Dioxide Anion Gap BUN Creatinine Estim Creat Clear Calc Estimated GFR POC Glucose 269 H Random Glucose Fasting Glucose Estimat Average Glucose 105 Hemoglobin A1c % 5.3 Lactic Acid Lactic Acid F/U @ 2Hr Lactic Acid F/U @ 4Hr Calcium Phosphorus Magnesium Total Bilirubin AST ALT Alkaline Phosphatase Ammonia Troponin I High Sens C-Reactive Protein Total Protein Albumin Triglycerides Vitamin B12 Folate TSH Urine Color Urine Appearance Urine pH Ur Specific [place] Urine Protein Urine Glucose (UA) Urine Ketones Urine Blood Urine Nitrite Ur Leukocyte Esterase Urine RBC Urine WBC Ur Squamous Epith Cells Urine Bacteria Hyaline Casts Urine Osmolality Ur Random Sodium Stool Occult Blood Vancomycin Trough Random Vancomycin COVID-19 (PADMA) COVID-19 Clin Com Blood Type Antibody Screen Crossmatch 10/16/22 10/16/22 10/16/22 11:23 16:34 20:37 WBC RBC Hgb Hct MCV MCH MCHC RDW Plt Count MPV Immature Gran % (Auto) Neut % (Auto) Lymph % (Auto) [place] % (Auto) Eos % (Auto) Baso % (Auto) Lymph # (Auto) [place]illiam # (Auto) Eos # (Auto) Baso # (Auto) Abs Immat Gran (auto) Absolute Neuts (auto) Absolute Nucleated RBC Nucleated RBC % (auto) Neutrophils % (Manual) Band Neutrophils % Lymphocytes % (Manual) Atypical Lymphs % (Man) Monocytes % (Manual) Eosinophils % (Manual) Basophils % (Manual) Metamyelocytes % Myelocytes % Abs Neuts (Manual) Lymphocytes # (Manual) Atyp Lymphs # (Manual) Monocytes # (Manual) Eosinophils # (Manual) Basophils # (Manual) Metamyelocytes # Myelocytes # Nucleated RBCs Toxic Granulation Dohle Bodies WBC Morphology Comment Platelet Estimate Large Platelets Plt Morphology Comment RBC Morphology Polychromasia Hypochromasia Basophilic Stippling Microcytosis Macrocytosis Spherocytes Target Cells Stomatocytes [place] Cells Acanthocytes (Spur) Smear Tech's Comments Smear Path Review PT INR O2 Saturation ABG pH at Pt Temp ABG pCO2 at Pt Temp ABG pO2 at Pt Temp ABG HCO3 ABG Base Excess (Actual) VBG pH VBG pCO2 VBG pO2 VBG HCO3 VBG O2 Saturation VBG Base Excess Sodium Potassium Chloride Carbon Dioxide Anion Gap BUN Creatinine Estim Creat Clear Calc Estimated GFR POC Glucose 287 H 246 H 252 H Random Glucose Fasting Glucose Estimat Average Glucose Hemoglobin A1c % Lactic Acid Lactic Acid F/U @ 2Hr Lactic Acid F/U @ 4Hr Calcium Phosphorus Magnesium Total Bilirubin AST ALT Alkaline Phosphatase Ammonia Troponin I High Sens C-Reactive Protein Total Protein Albumin Triglycerides Vitamin B12 Folate TSH Urine Color Urine Appearance Urine pH Ur Specific [place] Urine Protein Urine Glucose (UA) Urine Ketones Urine Blood Urine Nitrite Ur Leukocyte Esterase Urine RBC Urine WBC Ur Squamous Epith Cells Urine Bacteria Hyaline Casts Urine Osmolality Ur Random Sodium Stool Occult Blood Vancomycin Trough Random Vancomycin COVID-19 (PADMA) COVID-19 Clin Com Blood Type Antibody Screen Crossmatch 10/17/22 10/17/22 10/17/22 04:23 04:23 07:26 WBC 11.2 H RBC 3.16 L Hgb 9.5 L Hct 31.8 L MCV 100.6 H MCH 30.1 MCHC 29.9 L RDW 17.5 H Plt Count 85 L MPV 12.1 Immature Gran % (Auto) Neut % (Auto) Lymph % (Auto) [place] % (Auto) Eos % (Auto) Baso % (Auto) Lymph # (Auto) [place] # (Auto) Eos # (Auto) Baso # (Auto) Abs Immat Gran (auto) Absolute Neuts (auto) Absolute Nucleated RBC 0.000 Nucleated RBC % (auto) 0.0 Neutrophils % (Manual) Band Neutrophils % Lymphocytes % (Manual) Atypical Lymphs % (Man) Monocytes % (Manual) Eosinophils % (Manual) Basophils % (Manual) Metamyelocytes % Myelocytes % Abs Neuts (Manual) Lymphocytes # (Manual) Atyp Lymphs # (Manual) Monocytes # (Manual) Eosinophils # (Manual) Basophils # (Manual) Metamyelocytes # Myelocytes # Nucleated RBCs Toxic Granulation Dohle Bodies WBC Morphology Comment Platelet Estimate Large Platelets Plt Morphology Comment RBC Morphology Polychromasia Hypochromasia Basophilic Stippling Microcytosis Macrocytosis Spherocytes Target Cells Stomatocytes [place] Cells Acanthocytes (Spur) Smear Tech's Comments Smear Path Review PT INR O2 Saturation ABG pH at Pt Temp ABG pCO2 at Pt Temp ABG pO2 at Pt Temp ABG HCO3 ABG Base Excess (Actual) VBG pH VBG pCO2 VBG pO2 VBG HCO3 VBG O2 Saturation VBG Base Excess Sodium 145 Potassium 4.3 Chloride 115 H Carbon Dioxide 24 Anion Gap 10 L BUN 28 H Creatinine 0.92 Estim Creat Clear Calc 75.8 Estimated GFR > 60 POC Glucose 96 Random Glucose 104 Fasting Glucose Estimat Average Glucose Hemoglobin A1c % Lactic Acid Lactic Acid F/U @ 2Hr Lactic Acid F/U @ 4Hr Calcium 10.5 H Phosphorus 2.6 L Magnesium 2.0 Total Bilirubin AST ALT Alkaline Phosphatase Ammonia Troponin I High Sens C-Reactive Protein Total Protein Albumin Triglycerides Vitamin B12 1244 H Folate 3.8 L TSH Urine Color Urine Appearance Urine pH Ur Specific [place] Urine Protein Urine Glucose (UA) Urine Ketones Urine Blood Urine Nitrite Ur Leukocyte Esterase Urine RBC Urine WBC Ur Squamous Epith Cells Urine Bacteria Hyaline Casts Urine Osmolality Ur Random Sodium Stool Occult Blood Vancomycin Trough Random Vancomycin COVID-19 (PADMA) COVID-19 Clin Com Blood Type Antibody Screen Crossmatch 10/17/22 10/17/22 10/17/22 11:03 12:19 13:28 WBC RBC Hgb Hct MCV MCH MCHC RDW Plt Count MPV Immature Gran % (Auto) Neut % (Auto) Lymph % (Auto) [place] % (Auto) Eos % (Auto) Baso % (Auto) Lymph # (Auto) [place]illiam # (Auto) Eos # (Auto) Baso # (Auto) Abs Immat Gran (auto) Absolute Neuts (auto) Absolute Nucleated RBC Nucleated RBC % (auto) Neutrophils % (Manual) Band Neutrophils % Lymphocytes % (Manual) Atypical Lymphs % (Man) Monocytes % (Manual) Eosinophils % (Manual) Basophils % (Manual) Metamyelocytes % Myelocytes % Abs Neuts (Manual) Lymphocytes # (Manual) Atyp Lymphs # (Manual) Monocytes # (Manual) Eosinophils # (Manual) Basophils # (Manual) Metamyelocytes # Myelocytes # Nucleated RBCs Toxic Granulation Dohle Bodies WBC Morphology Comment Platelet Estimate Large Platelets Plt Morphology Comment RBC Morphology Polychromasia Hypochromasia Basophilic Stippling Microcytosis Macrocytosis Spherocytes Target Cells Stomatocytes [place] Cells Acanthocytes (Spur) Smear Tech's Comments Smear Path Review PT INR O2 Saturation ABG pH at Pt Temp ABG pCO2 at Pt Temp ABG pO2 at Pt Temp ABG HCO3 ABG Base Excess (Actual) VBG pH VBG pCO2 VBG pO2 VBG HCO3 VBG O2 Saturation VBG Base Excess Sodium Potassium Chloride Carbon Dioxide Anion Gap BUN Creatinine Estim Creat Clear Calc Estimated GFR POC Glucose 78 67 88 Random Glucose Fasting Glucose Estimat Average Glucose Hemoglobin A1c % Lactic Acid Lactic Acid F/U @ 2Hr Lactic Acid F/U @ 4Hr Calcium Phosphorus Magnesium Total Bilirubin AST ALT Alkaline Phosphatase Ammonia Troponin I High Sens C-Reactive Protein Total Protein Albumin Triglycerides Vitamin B12 Folate TSH Urine Color Urine Appearance Urine pH Ur Specific [place] Urine Protein Urine Glucose (UA) Urine Ketones Urine Blood Urine Nitrite Ur Leukocyte Esterase Urine RBC Urine WBC Ur Squamous Epith Cells Urine Bacteria Hyaline Casts Urine Osmolality Ur Random Sodium Stool Occult Blood Vancomycin Trough Random Vancomycin COVID-19 (PADMA) COVID-19 Clin Com Blood Type Antibody Screen Crossmatch 10/17/22 10/17/22 10/18/22 15:25 19:27 00:15 WBC RBC Hgb Hct MCV MCH MCHC RDW Plt Count MPV Immature Gran % (Auto) Neut % (Auto) Lymph % (Auto) Gilliam % (Auto) Eos % (Auto) Baso % (Auto) Lymph # (Auto) [place]illiam # (Auto) Eos # (Auto) Baso # (Auto) Abs Immat Gran (auto) Absolute Neuts (auto) Absolute Nucleated RBC Nucleated RBC % (auto) Neutrophils % (Manual) Band Neutrophils % Lymphocytes % (Manual) Atypical Lymphs % (Man) Monocytes % (Manual) Eosinophils % (Manual) Basophils % (Manual) Metamyelocytes % Myelocytes % Abs Neuts (Manual) Lymphocytes # (Manual) Atyp Lymphs # (Manual) Monocytes # (Manual) Eosinophils # (Manual) Basophils # (Manual) Metamyelocytes # Myelocytes # Nucleated RBCs Toxic Granulation Dohle Bodies WBC Morphology Comment Platelet Estimate Large Platelets Plt Morphology Comment RBC Morphology Polychromasia Hypochromasia Basophilic Stippling Microcytosis Macrocytosis Spherocytes Target Cells Stomatocytes [place] Cells Acanthocytes (Spur) Smear Tech's Comments Smear Path Review PT INR O2 Saturation ABG pH at Pt Temp ABG pCO2 at Pt Temp ABG pO2 at Pt Temp ABG HCO3 ABG Base Excess (Actual) VBG pH VBG pCO2 VBG pO2 VBG HCO3 VBG O2 Saturation VBG Base Excess Sodium Potassium Chloride Carbon Dioxide Anion Gap BUN Creatinine Estim Creat Clear Calc Estimated GFR POC Glucose 98 111 137 H Random Glucose Fasting Glucose Estimat Average Glucose Hemoglobin A1c % Lactic Acid Lactic Acid F/U @ 2Hr Lactic Acid F/U @ 4Hr Calcium Phosphorus Magnesium Total Bilirubin AST ALT Alkaline Phosphatase Ammonia Troponin I High Sens C-Reactive Protein Total Protein Albumin Triglycerides Vitamin B12 Folate TSH Urine Color Urine Appearance Urine pH Ur Specific [place] Urine Protein Urine Glucose (UA) Urine Ketones Urine Blood Urine Nitrite Ur Leukocyte Esterase Urine RBC Urine WBC Ur Squamous Epith Cells Urine Bacteria Hyaline Casts Urine Osmolality Ur Random Sodium Stool Occult Blood Vancomycin Trough Random Vancomycin COVID-19 (PADMA) COVID-19 Clin Com Blood Type Antibody Screen Crossmatch 10/18/22 10/18/22 10/18/22 05:50 08:02 11:41 WBC RBC Hgb Hct MCV MCH MCHC RDW Plt Count MPV Immature Gran % (Auto) Neut % (Auto) Lymph % (Auto) [place]illi[place] % (Auto) Eos % (Auto) Baso % (Auto) Lymph # (Auto) Gilliam # (Auto) Eos # (Auto) Baso # (Auto) Abs Immat Gran (auto) Absolute Neuts (auto) Absolute Nucleated RBC Nucleated RBC % (auto) Neutrophils % (Manual) Band Neutrophils % Lymphocytes % (Manual) Atypical Lymphs % (Man) Monocytes % (Manual) Eosinophils % (Manual) Basophils % (Manual) Metamyelocytes % Myelocytes % Abs Neuts (Manual) Lymphocytes # (Manual) Atyp Lymphs # (Manual) Monocytes # (Manual) Eosinophils # (Manual) Basophils # (Manual) Metamyelocytes # Myelocytes # Nucleated RBCs Toxic Granulation Dohle Bodies WBC Morphology Comment Platelet Estimate Large Platelets Plt Morphology Comment RBC Morphology Polychromasia Hypochromasia Basophilic Stippling Microcytosis Macrocytosis Spherocytes Target Cells Stomatocytes [place] Cells Acanthocytes (Spur) Smear Tech's Comments Smear Path Review PT INR O2 Saturation ABG pH at Pt Temp ABG pCO2 at Pt Temp ABG pO2 at Pt Temp ABG HCO3 ABG Base Excess (Actual) VBG pH VBG pCO2 VBG pO2 VBG HCO3 VBG O2 Saturation VBG Base Excess Sodium 146 H Potassium 4.0 Chloride 113 H Carbon Dioxide 25 Anion Gap 12 BUN 28 H Creatinine 1.06 Estim Creat Clear Calc 65.8 Estimated GFR 52 POC Glucose 156 H 177 H Random Glucose 136 H Fasting Glucose Estimat Average Glucose Hemoglobin A1c % Lactic Acid Lactic Acid F/U @ 2Hr Lactic Acid F/U @ 4Hr Calcium 10.9 H Phosphorus 3.0 Magnesium 1.9 Total Bilirubin AST ALT Alkaline Phosphatase Ammonia Troponin I High Sens C-Reactive Protein Total Protein Albumin Triglycerides Vitamin B12 Folate TSH Urine Color Urine Appearance Urine pH Ur Specific [place] Urine Protein Urine Glucose (UA) Urine Ketones Urine Blood Urine Nitrite Ur Leukocyte Esterase Urine RBC Urine WBC Ur Squamous Epith Cells Urine Bacteria Hyaline Casts Urine Osmolality Ur Random Sodium Stool Occult Blood Vancomycin Trough Random Vancomycin COVID-19 (PADMA) COVID-19 Clin Com Blood Type Antibody Screen Crossmatch 10/18/22 10/18/22 10/19/22 16:30 20:30 06:06 WBC RBC Hgb Hct MCV MCH MCHC RDW Plt Count MPV Immature Gran % (Auto) Neut % (Auto) Lymph % (Auto) Gilliam % (Auto) Eos % (Auto) Baso % (Auto) Lymph # (Auto) Gilliam # (Auto) Eos # (Auto) Baso # (Auto) Abs Immat Gran (auto) Absolute Neuts (auto) Absolute Nucleated RBC Nucleated RBC % (auto) Neutrophils % (Manual) Band Neutrophils % Lymphocytes % (Manual) Atypical Lymphs % (Man) Monocytes % (Manual) Eosinophils % (Manual) Basophils % (Manual) Metamyelocytes % Myelocytes % Abs Neuts (Manual) Lymphocytes # (Manual) Atyp Lymphs # (Manual) Monocytes # (Manual) Eosinophils # (Manual) Basophils # (Manual) Metamyelocytes # Myelocytes # Nucleated RBCs Toxic Granulation Dohle Bodies WBC Morphology Comment Platelet Estimate Large Platelets Plt Morphology Comment RBC Morphology Polychromasia Hypochromasia Basophilic Stippling Microcytosis Macrocytosis Spherocytes Target Cells Stomatocytes [place] Cells Acanthocytes (Spur) Smear Tech's Comments Smear Path Review PT INR O2 Saturation ABG pH at Pt Temp ABG pCO2 at Pt Temp ABG pO2 at Pt Temp ABG HCO3 ABG Base Excess (Actual) VBG pH VBG pCO2 VBG pO2 VBG HCO3 VBG O2 Saturation VBG Base Excess Sodium 141 Potassium 4.2 Chloride 110 H Carbon Dioxide 25 Anion Gap 10 L BUN 35 H Creatinine 0.95 Estim Creat Clear Calc 73.4 Estimated GFR 59 POC Glucose 176 H 198 H Random Glucose 176 H Fasting Glucose Estimat Average Glucose Hemoglobin A1c % Lactic Acid Lactic Acid F/U @ 2Hr Lactic Acid F/U @ 4Hr Calcium 10.6 H Phosphorus 3.1 Magnesium 1.9 Total Bilirubin AST ALT Alkaline Phosphatase Ammonia Troponin I High Sens C-Reactive Protein Total Protein Albumin Triglycerides Vitamin B12 Folate TSH Urine Color Urine Appearance Urine pH Ur Specific [place] Urine Protein Urine Glucose (UA) Urine Ketones Urine Blood Urine Nitrite Ur Leukocyte Esterase Urine RBC Urine WBC Ur Squamous Epith Cells Urine Bacteria Hyaline Casts Urine Osmolality Ur Random Sodium Stool Occult Blood Vancomycin Trough Random Vancomycin COVID-19 (PADMA) COVID-19 Clin Com Blood Type Antibody Screen Crossmatch 10/19/22 10/19/22 10/19/22 08:03 11:23 16:22 WBC RBC Hgb Hct MCV MCH MCHC RDW Plt Count MPV Immature Gran % (Auto) Neut % (Auto) Lymph % (Auto) Gilliam % (Auto) Eos % (Auto) Baso % (Auto) Lymph # (Auto) Gilliam # (Auto) Eos # (Auto) Baso # (Auto) Abs Immat Gran (auto) Absolute Neuts (auto) Absolute Nucleated RBC Nucleated RBC % (auto) Neutrophils % (Manual) Band Neutrophils % Lymphocytes % (Manual) Atypical Lymphs % (Man) Monocytes % (Manual) Eosinophils % (Manual) Basophils % (Manual) Metamyelocytes % Myelocytes % Abs Neuts (Manual) Lymphocytes # (Manual) Atyp Lymphs # (Manual) Monocytes # (Manual) Eosinophils # (Manual) Basophils # (Manual) Metamyelocytes # Myelocytes # Nucleated RBCs Toxic Granulation Dohle Bodies WBC Morphology Comment Platelet Estimate Large Platelets Plt Morphology Comment RBC Morphology Polychromasia Hypochromasia Basophilic Stippling Microcytosis Macrocytosis Spherocytes Target Cells Stomatocytes [place] Cells Acanthocytes (Spur) Smear Tech's Comments Smear Path Review PT INR O2 Saturation ABG pH at Pt Temp ABG pCO2 at Pt Temp ABG pO2 at Pt Temp ABG HCO3 ABG Base Excess (Actual) VBG pH VBG pCO2 VBG pO2 VBG HCO3 VBG O2 Saturation VBG Base Excess Sodium Potassium Chloride Carbon Dioxide Anion Gap BUN Creatinine Estim Creat Clear Calc Estimated GFR POC Glucose 168 H 130 H 145 H Random Glucose Fasting Glucose Estimat Average Glucose Hemoglobin A1c % Lactic Acid Lactic Acid F/U @ 2Hr Lactic Acid F/U @ 4Hr Calcium Phosphorus Magnesium Total Bilirubin AST ALT Alkaline Phosphatase Ammonia Troponin I High Sens C-Reactive Protein Total Protein Albumin Triglycerides Vitamin B12 Folate TSH Urine Color Urine Appearance Urine pH Ur Specific [place] Urine Protein Urine Glucose (UA) Urine Ketones Urine Blood Urine Nitrite Ur Leukocyte Esterase Urine RBC Urine WBC Ur Squamous Epith Cells Urine Bacteria Hyaline Casts Urine Osmolality Ur Random Sodium Stool Occult Blood Vancomycin Trough Random Vancomycin COVID-19 (PADMA) COVID-19 Clin Com Blood Type Antibody Screen Crossmatch 10/19/22 10/20/22 10/20/22 19:24 06:33 06:33 WBC 10.8 RBC 2.90 L Hgb 9.1 L Hct 28.3 L MCV 97.6 MCH 31.4 MCHC 32.2 RDW 16.2 H Plt Count 210 D MPV 11.4 Immature Gran % (Auto) Neut % (Auto) Lymph % (Auto) Gilliam % (Auto) Eos % (Auto) Baso % (Auto) Lymph # (Auto) Gilliam # (Auto) Eos # (Auto) Baso # (Auto) Abs Immat Gran (auto) Absolute Neuts (auto) Absolute Nucleated RBC 0.000 Nucleated RBC % (auto) 0.0 Neutrophils % (Manual) Band Neutrophils % Lymphocytes % (Manual) Atypical Lymphs % (Man) Monocytes % (Manual) Eosinophils % (Manual) Basophils % (Manual) Metamyelocytes % Myelocytes % Abs Neuts (Manual) Lymphocytes # (Manual) Atyp Lymphs # (Manual) Monocytes # (Manual) Eosinophils # (Manual) Basophils # (Manual) Metamyelocytes # Myelocytes # Nucleated RBCs Toxic Granulation Dohle Bodies WBC Morphology Comment Platelet Estimate Large Platelets Plt Morphology Comment RBC Morphology Polychromasia Hypochromasia Basophilic Stippling Microcytosis Macrocytosis Spherocytes Target Cells Stomatocytes [place] Cells Acanthocytes (Spur) Smear Tech's Comments Smear Path Review PT INR O2 Saturation ABG pH at Pt Temp ABG pCO2 at Pt Temp ABG pO2 at Pt Temp ABG HCO3 ABG Base Excess (Actual) VBG pH VBG pCO2 VBG pO2 VBG HCO3 VBG O2 Saturation VBG Base Excess Sodium 140 Potassium 4.6 Chloride 107 Carbon Dioxide 25 Anion Gap 13 BUN 41 H Creatinine 0.91 Estim Creat Clear Calc 76.6 Estimated GFR > 60 POC Glucose 125 H Random Glucose 158 H Fasting Glucose Estimat Average Glucose Hemoglobin A1c % Lactic Acid Lactic Acid F/U @ 2Hr Lactic Acid F/U @ 4Hr Calcium 10.7 H Phosphorus 3.3 Magnesium 2.0 Total Bilirubin AST ALT Alkaline Phosphatase Ammonia Troponin I High Sens C-Reactive Protein Total Protein Albumin 2.7 L Triglycerides 480 Vitamin B12 Folate TSH Urine Color Urine Appearance Urine pH Ur Specific [place] Urine Protein Urine Glucose (UA) Urine Ketones Urine Blood Urine Nitrite Ur Leukocyte Esterase Urine RBC Urine WBC Ur Squamous Epith Cells Urine Bacteria Hyaline Casts Urine Osmolality Ur Random Sodium Stool Occult Blood Vancomycin Trough Random Vancomycin COVID-19 (PADMA) COVID-19 Clin Com Blood Type Antibody Screen Crossmatch 10/20/22 10/20/22 10/20/22 07:44 12:00 15:56 WBC RBC Hgb Hct MCV MCH MCHC RDW Plt Count MPV Immature Gran % (Auto) Neut % (Auto) Lymph % (Auto) Gilliam % (Auto) Eos % (Auto) Baso % (Auto) Lymph # (Auto) Gilliam # (Auto) Eos # (Auto) Baso # (Auto) Abs Immat Gran (auto) Absolute Neuts (auto) Absolute Nucleated RBC Nucleated RBC % (auto) Neutrophils % (Manual) Band Neutrophils % Lymphocytes % (Manual) Atypical Lymphs % (Man) Monocytes % (Manual) Eosinophils % (Manual) Basophils % (Manual) Metamyelocytes % Myelocytes % Abs Neuts (Manual) Lymphocytes # (Manual) Atyp Lymphs # (Manual) Monocytes # (Manual) Eosinophils # (Manual) Basophils # (Manual) Metamyelocytes # Myelocytes # Nucleated RBCs Toxic Granulation Dohle Bodies WBC Morphology Comment Platelet Estimate Large Platelets Plt Morphology Comment RBC Morphology Polychromasia Hypochromasia Basophilic Stippling Microcytosis Macrocytosis Spherocytes Target Cells Stomatocytes [place] Cells Acanthocytes (Spur) Smear Tech's Comments Smear Path Review PT INR O2 Saturation ABG pH at Pt Temp ABG pCO2 at Pt Temp ABG pO2 at Pt Temp ABG HCO3 ABG Base Excess (Actual) VBG pH VBG pCO2 VBG pO2 VBG HCO3 VBG O2 Saturation VBG Base Excess Sodium Potassium Chloride Carbon Dioxide Anion Gap BUN Creatinine Estim Creat Clear Calc Estimated GFR POC Glucose 168 H 133 H 131 H Random Glucose Fasting Glucose Estimat Average Glucose Hemoglobin A1c % Lactic Acid Lactic Acid F/U @ 2Hr Lactic Acid F/U @ 4Hr Calcium Phosphorus Magnesium Total Bilirubin AST ALT Alkaline Phosphatase Ammonia Troponin I High Sens C-Reactive Protein Total Protein Albumin Triglycerides Vitamin B12 Folate TSH Urine Color Urine Appearance Urine pH Ur Specific [place] Urine Protein Urine Glucose (UA) Urine Ketones Urine Blood Urine Nitrite Ur Leukocyte Esterase Urine RBC Urine WBC Ur Squamous Epith Cells Urine Bacteria Hyaline Casts Urine Osmolality Ur Random Sodium Stool Occult Blood Vancomycin Trough Random Vancomycin COVID-19 (PADMA) COVID-19 Clin Com Blood Type Antibody Screen Crossmatch 10/20/22 10/21/22 10/21/22 19:39 07:13 11:11 WBC RBC Hgb Hct MCV MCH MCHC RDW Plt Count MPV Immature Gran % (Auto) Neut % (Auto) Lymph % (Auto) [place]illi[place] % (Auto) Eos % (Auto) Baso % (Auto) Lymph # (Auto) Gilliam # (Auto) Eos # (Auto) Baso # (Auto) Abs Immat Gran (auto) Absolute Neuts (auto) Absolute Nucleated RBC Nucleated RBC % (auto) Neutrophils % (Manual) Band Neutrophils % Lymphocytes % (Manual) Atypical Lymphs % (Man) Monocytes % (Manual) Eosinophils % (Manual) Basophils % (Manual) Metamyelocytes % Myelocytes % Abs Neuts (Manual) Lymphocytes # (Manual) Atyp Lymphs # (Manual) Monocytes # (Manual) Eosinophils # (Manual) Basophils # (Manual) Metamyelocytes # Myelocytes # Nucleated RBCs Toxic Granulation Dohle Bodies WBC Morphology Comment Platelet Estimate Large Platelets Plt Morphology Comment RBC Morphology Polychromasia Hypochromasia Basophilic Stippling Microcytosis Macrocytosis Spherocytes Target Cells Stomatocytes [place] Cells Acanthocytes (Spur) Smear Tech's Comments Smear Path Review PT INR O2 Saturation ABG pH at Pt Temp ABG pCO2 at Pt Temp ABG pO2 at Pt Temp ABG HCO3 ABG Base Excess (Actual) VBG pH VBG pCO2 VBG pO2 VBG HCO3 VBG O2 Saturation VBG Base Excess Sodium Potassium Chloride Carbon Dioxide Anion Gap BUN Creatinine Estim Creat Clear Calc Estimated GFR POC Glucose 156 H 150 H 149 H Random Glucose Fasting Glucose Estimat Average Glucose Hemoglobin A1c % Lactic Acid Lactic Acid F/U @ 2Hr Lactic Acid F/U @ 4Hr Calcium Phosphorus Magnesium Total Bilirubin AST ALT Alkaline Phosphatase Ammonia Troponin I High Sens C-Reactive Protein Total Protein Albumin Triglycerides Vitamin B12 Folate TSH Urine Color Urine Appearance Urine pH Ur Specific [place] Urine Protein Urine Glucose (UA) Urine Ketones Urine Blood Urine Nitrite Ur Leukocyte Esterase Urine RBC Urine WBC Ur Squamous Epith Cells Urine Bacteria Hyaline Casts Urine Osmolality Ur Random Sodium Stool Occult Blood Vancomycin Trough Random Vancomycin COVID-19 (PADMA) COVID-19 Clin Com Blood Type Antibody Screen Crossmatch 10/21/22 10/21/22 10/21/22 12:53 15:25 21:11 WBC RBC Hgb Hct MCV MCH MCHC RDW Plt Count MPV Immature Gran % (Auto) Neut % (Auto) Lymph % (Auto) Gilli[place] % (Auto) Eos % (Auto) Baso % (Auto) Lymph # (Auto) Gilliam # (Auto) Eos # (Auto) Baso # (Auto) Abs Immat Gran (auto) Absolute Neuts (auto) Absolute Nucleated RBC Nucleated RBC % (auto) Neutrophils % (Manual) Band Neutrophils % Lymphocytes % (Manual) Atypical Lymphs % (Man) Monocytes % (Manual) Eosinophils % (Manual) Basophils % (Manual) Metamyelocytes % Myelocytes % Abs Neuts (Manual) Lymphocytes # (Manual) Atyp Lymphs # (Manual) Monocytes # (Manual) Eosinophils # (Manual) Basophils # (Manual) Metamyelocytes # Myelocytes # Nucleated RBCs Toxic Granulation Dohle Bodies WBC Morphology Comment Platelet Estimate Large Platelets Plt Morphology Comment RBC Morphology Polychromasia Hypochromasia Basophilic Stippling Microcytosis Macrocytosis Spherocytes Target Cells Stomatocytes [place] Cells Acanthocytes (Spur) Smear Tech's Comments Smear Path Review PT INR O2 Saturation ABG pH at Pt Temp ABG pCO2 at Pt Temp ABG pO2 at Pt Temp ABG HCO3 ABG Base Excess (Actual) VBG pH VBG pCO2 VBG pO2 VBG HCO3 VBG O2 Saturation VBG Base Excess Sodium 137 Potassium 4.5 Chloride 106 Carbon Dioxide 23 Anion Gap 13 BUN 44 H Creatinine 0.84 Estim Creat Clear Calc 83.0 Estimated GFR > 60 POC Glucose 137 H 131 H Random Glucose 148 H Fasting Glucose Estimat Average Glucose Hemoglobin A1c % Lactic Acid Lactic Acid F/U @ 2Hr Lactic Acid F/U @ 4Hr Calcium 9.9 D Phosphorus 3.9 Magnesium 1.9 Total Bilirubin AST ALT Alkaline Phosphatase Ammonia Troponin I High Sens C-Reactive Protein Total Protein Albumin 2.5 L Triglycerides 351 Vitamin B12 Folate TSH Urine Color Urine Appearance Urine pH Ur Specific [place] Urine Protein Urine Glucose (UA) Urine Ketones Urine Blood Urine Nitrite Ur Leukocyte Esterase Urine RBC Urine WBC Ur Squamous Epith Cells Urine Bacteria Hyaline Casts Urine Osmolality Ur Random Sodium Stool Occult Blood Vancomycin Trough Random Vancomycin COVID-19 (PADMA) COVID-19 Clin Com Blood Type Antibody Screen Crossmatch 10/22/22 10/22/22 10/22/22 05:47 07:55 11:22 WBC RBC Hgb Hct MCV MCH MCHC RDW Plt Count MPV Immature Gran % (Auto) Neut % (Auto) Lymph % (Auto) [place]illi[place] % (Auto) Eos % (Auto) Baso % (Auto) Lymph # (Auto) Gilliam # (Auto) Eos # (Auto) Baso # (Auto) Abs Immat Gran (auto) Absolute Neuts (auto) Absolute Nucleated RBC Nucleated RBC % (auto) Neutrophils % (Manual) Band Neutrophils % Lymphocytes % (Manual) Atypical Lymphs % (Man) Monocytes % (Manual) Eosinophils % (Manual) Basophils % (Manual) Metamyelocytes % Myelocytes % Abs Neuts (Manual) Lymphocytes # (Manual) Atyp Lymphs # (Manual) Monocytes # (Manual) Eosinophils # (Manual) Basophils # (Manual) Metamyelocytes # Myelocytes # Nucleated RBCs Toxic Granulation Dohle Bodies WBC Morphology Comment Platelet Estimate Large Platelets Plt Morphology Comment RBC Morphology Polychromasia Hypochromasia Basophilic Stippling Microcytosis Macrocytosis Spherocytes Target Cells Stomatocytes [place] Cells Acanthocytes (Spur) Smear Tech's Comments Smear Path Review PT INR O2 Saturation ABG pH at Pt Temp ABG pCO2 at Pt Temp ABG pO2 at Pt Temp ABG HCO3 ABG Base Excess (Actual) VBG pH VBG pCO2 VBG pO2 VBG HCO3 VBG O2 Saturation VBG Base Excess Sodium 137 Potassium 4.4 Chloride 107 Carbon Dioxide 23 Anion Gap 11 L BUN 47 H Creatinine 0.87 Estim Creat Clear Calc 80.2 Estimated GFR > 60 POC Glucose 145 H 137 H Random Glucose 142 H Fasting Glucose Estimat Average Glucose Hemoglobin A1c % Lactic Acid Lactic Acid F/U @ 2Hr Lactic Acid F/U @ 4Hr Calcium 9.7 Phosphorus 4.9 H Magnesium 2.1 Total Bilirubin AST ALT Alkaline Phosphatase Ammonia Troponin I High Sens C-Reactive Protein Total Protein Albumin 2.5 L Triglycerides Vitamin B12 Folate TSH Urine Color Urine Appearance Urine pH Ur Specific [place] Urine Protein Urine Glucose (UA) Urine Ketones Urine Blood Urine Nitrite Ur Leukocyte Esterase Urine RBC Urine WBC Ur Squamous Epith Cells Urine Bacteria Hyaline Casts Urine Osmolality Ur Random Sodium Stool Occult Blood Vancomycin Trough Random Vancomycin COVID-19 (PADMA) COVID-19 Clin Com Blood Type Antibody Screen Crossmatch 10/22/22 10/22/22 10/23/22 16:04 20:25 06:48 WBC 8.3 RBC 2.72 L Hgb 8.4 L Hct 26.9 L MCV 98.9 H MCH 30.9 MCHC 31.2 RDW 17.2 H Plt Count 308 D MPV 12.4 H Immature Gran % (Auto) Cancelled Neut % (Auto) Cancelled Lymph % (Auto) Cancelled Gilliam % (Auto) Cancelled Eos % (Auto) Cancelled Baso % (Auto) Cancelled Lymph # (Auto) Cancelled Gilliam # (Auto) Cancelled Eos # (Auto) Cancelled Baso # (Auto) Cancelled Abs Immat Gran (auto) Cancelled Absolute Neuts (auto) Cancelled Absolute Nucleated RBC 0.000 Nucleated RBC % (auto) 0.0 Neutrophils % (Manual) 47 Band Neutrophils % 3 Lymphocytes % (Manual) 37 Atypical Lymphs % (Man) Monocytes % (Manual) 6 Eosinophils % (Manual) 2 Basophils % (Manual) 1 Metamyelocytes % 4 Myelocytes % Abs Neuts (Manual) 4.2 Lymphocytes # (Manual) 3.1 Atyp Lymphs # (Manual) Monocytes # (Manual) 0.5 Eosinophils # (Manual) 0.2 Basophils # (Manual) 0.1 Metamyelocytes # 0.3 Myelocytes # Nucleated RBCs Toxic Granulation Dohle Bodies WBC Morphology Comment Platelet Estimate NORMAL Large Platelets Plt Morphology Comment NORMAL RBC Morphology NOTED Polychromasia 1+ (0-2) Hypochromasia 1+ (5-14) Basophilic Stippling Microcytosis Macrocytosis Spherocytes Target Cells Stomatocytes [place] Cells Acanthocytes (Spur) Smear Tech's Comments Smear Path Review PT INR O2 Saturation ABG pH at Pt Temp ABG pCO2 at Pt Temp ABG pO2 at Pt Temp ABG HCO3 ABG Base Excess (Actual) VBG pH VBG pCO2 VBG pO2 VBG HCO3 VBG O2 Saturation VBG Base Excess Sodium Potassium Chloride Carbon Dioxide Anion Gap BUN Creatinine Estim Creat Clear Calc Estimated GFR POC Glucose 132 H 155 H Random Glucose Fasting Glucose Estimat Average Glucose Hemoglobin A1c % Lactic Acid Lactic Acid F/U @ 2Hr Lactic Acid F/U @ 4Hr Calcium Phosphorus Magnesium Total Bilirubin AST ALT Alkaline Phosphatase Ammonia Troponin I High Sens C-Reactive Protein Total Protein Albumin Triglycerides Vitamin B12 Folate TSH Urine Color Urine Appearance Urine pH Ur Specific [place] Urine Protein Urine Glucose (UA) Urine Ketones Urine Blood Urine Nitrite Ur Leukocyte Esterase Urine RBC Urine WBC Ur Squamous Epith Cells Urine Bacteria Hyaline Casts Urine Osmolality Ur Random Sodium Stool Occult Blood Vancomycin Trough Random Vancomycin COVID-19 (PADMA) COVID-19 Clin Com Blood Type Antibody Screen Crossmatch 10/23/22 10/23/22 10/23/22 06:48 07:31 11:03 WBC RBC Hgb Hct MCV MCH MCHC RDW Plt Count MPV Immature Gran % (Auto) Neut % (Auto) Lymph % (Auto) Gilliam % (Auto) Eos % (Auto) Baso % (Auto) Lymph # (Auto) Gilliam # (Auto) Eos # (Auto) Baso # (Auto) Abs Immat Gran (auto) Absolute Neuts (auto) Absolute Nucleated RBC Nucleated RBC % (auto) Neutrophils % (Manual) Band Neutrophils % Lymphocytes % (Manual) Atypical Lymphs % (Man) Monocytes % (Manual) Eosinophils % (Manual) Basophils % (Manual) Metamyelocytes % Myelocytes % Abs Neuts (Manual) Lymphocytes # (Manual) Atyp Lymphs # (Manual) Monocytes # (Manual) Eosinophils # (Manual) Basophils # (Manual) Metamyelocytes # Myelocytes # Nucleated RBCs Toxic Granulation Dohle Bodies WBC Morphology Comment Platelet Estimate Large Platelets Plt Morphology Comment RBC Morphology Polychromasia Hypochromasia Basophilic Stippling Microcytosis Macrocytosis Spherocytes Target Cells Stomatocytes [place] Cells Acanthocytes (Spur) Smear Tech's Comments Smear Path Review PT INR O2 Saturation ABG pH at Pt Temp ABG pCO2 at Pt Temp ABG pO2 at Pt Temp ABG HCO3 ABG Base Excess (Actual) VBG pH VBG pCO2 VBG pO2 VBG HCO3 VBG O2 Saturation VBG Base Excess Sodium 137 Potassium 3.9 Chloride 107 Carbon Dioxide 24 Anion Gap 10 L BUN 54 H Creatinine 0.95 Estim Creat Clear Calc 73.4 Estimated GFR 59 POC Glucose 138 H 136 H Random Glucose 139 H Fasting Glucose Estimat Average Glucose Hemoglobin A1c % Lactic Acid Lactic Acid F/U @ 2Hr Lactic Acid F/U @ 4Hr Calcium 9.7 Phosphorus 4.0 Magnesium 2.5 Total Bilirubin AST ALT Alkaline Phosphatase Ammonia Troponin I High Sens C-Reactive Protein Total Protein Albumin 2.5 L Triglycerides 242 Vitamin B12 Folate TSH Urine Color Urine Appearance Urine pH Ur Specific [place] Urine Protein Urine Glucose (UA) Urine Ketones Urine Blood Urine Nitrite Ur Leukocyte Esterase Urine RBC Urine WBC Ur Squamous Epith Cells Urine Bacteria Hyaline Casts Urine Osmolality Ur Random Sodium Stool Occult Blood Vancomycin Trough Random Vancomycin COVID-19 (PADMA) COVID-19 Clin Com Blood Type Antibody Screen Crossmatch 10/23/22 10/23/22 10/24/22 17:01 21:02 07:03 WBC RBC Hgb Hct MCV MCH MCHC RDW Plt Count MPV Immature Gran % (Auto) Neut % (Auto) Lymph % (Auto) [place]illi[place] % (Auto) Eos % (Auto) Baso % (Auto) Lymph # (Auto) Gilliam # (Auto) Eos # (Auto) Baso # (Auto) Abs Immat Gran (auto) Absolute Neuts (auto) Absolute Nucleated RBC Nucleated RBC % (auto) Neutrophils % (Manual) Band Neutrophils % Lymphocytes % (Manual) Atypical Lymphs % (Man) Monocytes % (Manual) Eosinophils % (Manual) Basophils % (Manual) Metamyelocytes % Myelocytes % Abs Neuts (Manual) Lymphocytes # (Manual) Atyp Lymphs # (Manual) Monocytes # (Manual) Eosinophils # (Manual) Basophils # (Manual) Metamyelocytes # Myelocytes # Nucleated RBCs Toxic Granulation Dohle Bodies WBC Morphology Comment Platelet Estimate Large Platelets Plt Morphology Comment RBC Morphology Polychromasia Hypochromasia Basophilic Stippling Microcytosis Macrocytosis Spherocytes Target Cells Stomatocytes [place] Cells Acanthocytes (Spur) Smear Tech's Comments Smear Path Review PT INR O2 Saturation ABG pH at Pt Temp ABG pCO2 at Pt Temp ABG pO2 at Pt Temp ABG HCO3 ABG Base Excess (Actual) VBG pH VBG pCO2 VBG pO2 VBG HCO3 VBG O2 Saturation VBG Base Excess Sodium Potassium Chloride Carbon Dioxide Anion Gap BUN Creatinine Estim Creat Clear Calc Estimated GFR POC Glucose 93 131 H 135 H Random Glucose Fasting Glucose Estimat Average Glucose Hemoglobin A1c % Lactic Acid Lactic Acid F/U @ 2Hr Lactic Acid F/U @ 4Hr Calcium Phosphorus Magnesium Total Bilirubin AST ALT Alkaline Phosphatase Ammonia Troponin I High Sens C-Reactive Protein Total Protein Albumin Triglycerides Vitamin B12 Folate TSH Urine Color Urine Appearance Urine pH Ur Specific [place] Urine Protein Urine Glucose (UA) Urine Ketones Urine Blood Urine Nitrite Ur Leukocyte Esterase Urine RBC Urine WBC Ur Squamous Epith Cells Urine Bacteria Hyaline Casts Urine Osmolality Ur Random Sodium Stool Occult Blood Vancomycin Trough Random Vancomycin COVID-19 (PADMA) COVID-19 Clin Com Blood Type Antibody Screen Crossmatch 10/24/22 10/24/22 10/24/22 07:04 07:04 11:03 WBC RBC Hgb Hct MCV MCH MCHC RDW Plt Count MPV Immature Gran % (Auto) Neut % (Auto) Lymph % (Auto) Gilliam % (Auto) Eos % (Auto) Baso % (Auto) Lymph # (Auto) Gilliam # (Auto) Eos # (Auto) Baso # (Auto) Abs Immat Gran (auto) Absolute Neuts (auto) Absolute Nucleated RBC Nucleated RBC % (auto) Neutrophils % (Manual) Band Neutrophils % Lymphocytes % (Manual) Atypical Lymphs % (Man) Monocytes % (Manual) Eosinophils % (Manual) Basophils % (Manual) Metamyelocytes % Myelocytes % Abs Neuts (Manual) Lymphocytes # (Manual) Atyp Lymphs # (Manual) Monocytes # (Manual) Eosinophils # (Manual) Basophils # (Manual) Metamyelocytes # Myelocytes # Nucleated RBCs Toxic Granulation Dohle Bodies WBC Morphology Comment Platelet Estimate Large Platelets Plt Morphology Comment RBC Morphology Polychromasia Hypochromasia Basophilic Stippling Microcytosis Macrocytosis Spherocytes Target Cells Stomatocytes [place] Cells Acanthocytes (Spur) Smear Tech's Comments Smear Path Review PT INR O2 Saturation ABG pH at Pt Temp ABG pCO2 at Pt Temp ABG pO2 at Pt Temp ABG HCO3 ABG Base Excess (Actual) VBG pH VBG pCO2 VBG pO2 VBG HCO3 VBG O2 Saturation VBG Base Excess Sodium 138 Potassium 4.4 Chloride 107 Carbon Dioxide 22 Anion Gap 13 BUN 59 H Creatinine 0.93 Estim Creat Clear Calc 75.0 Estimated GFR > 60 POC Glucose 134 H Random Glucose 128 H Fasting Glucose Estimat Average Glucose Hemoglobin A1c % Lactic Acid Lactic Acid F/U @ 2Hr Lactic Acid F/U @ 4Hr Calcium 9.8 Phosphorus 3.8 Magnesium 2.4 Total Bilirubin AST ALT Alkaline Phosphatase Ammonia Troponin I High Sens C-Reactive Protein Total Protein Albumin 2.6 L Triglycerides 235 Vitamin B12 Folate TSH Urine Color Urine Appearance Urine pH Ur Specific [place] Urine Protein Urine Glucose (UA) Urine Ketones Urine Blood Urine Nitrite Ur Leukocyte Esterase Urine RBC Urine WBC Ur Squamous Epith Cells Urine Bacteria Hyaline Casts Urine Osmolality Ur Random Sodium Stool Occult Blood Vancomycin Trough Random Vancomycin COVID-19 (PADMA) COVID-19 Clin Com Blood Type Antibody Screen Crossmatch 10/24/22 10/24/22 10/25/22 16:18 20:45 07:15 WBC RBC Hgb Hct MCV MCH MCHC RDW Plt Count MPV Immature Gran % (Auto) Neut % (Auto) Lymph % (Auto) Gilliam % (Auto) Eos % (Auto) Baso % (Auto) Lymph # (Auto) Gilliam # (Auto) Eos # (Auto) Baso # (Auto) Abs Immat Gran (auto) Absolute Neuts (auto) Absolute Nucleated RBC Nucleated RBC % (auto) Neutrophils % (Manual) Band Neutrophils % Lymphocytes % (Manual) Atypical Lymphs % (Man) Monocytes % (Manual) Eosinophils % (Manual) Basophils % (Manual) Metamyelocytes % Myelocytes % Abs Neuts (Manual) Lymphocytes # (Manual) Atyp Lymphs # (Manual) Monocytes # (Manual) Eosinophils # (Manual) Basophils # (Manual) Metamyelocytes # Myelocytes # Nucleated RBCs Toxic Granulation Dohle Bodies WBC Morphology Comment Platelet Estimate Large Platelets Plt Morphology Comment RBC Morphology Polychromasia Hypochromasia Basophilic Stippling Microcytosis Macrocytosis Spherocytes Target Cells Stomatocytes [place] Cells Acanthocytes (Spur) Smear Tech's Comments Smear Path Review PT INR O2 Saturation ABG pH at Pt Temp ABG pCO2 at Pt Temp ABG pO2 at Pt Temp ABG HCO3 ABG Base Excess (Actual) VBG pH VBG pCO2 VBG pO2 VBG HCO3 VBG O2 Saturation VBG Base Excess Sodium Potassium Chloride Carbon Dioxide Anion Gap BUN Creatinine Estim Creat Clear Calc Estimated GFR POC Glucose 116 H 128 H 70 Random Glucose Fasting Glucose Estimat Average Glucose Hemoglobin A1c % Lactic Acid Lactic Acid F/U @ 2Hr Lactic Acid F/U @ 4Hr Calcium Phosphorus Magnesium Total Bilirubin AST ALT Alkaline Phosphatase Ammonia Troponin I High Sens C-Reactive Protein Total Protein Albumin Triglycerides Vitamin B12 Folate TSH Urine Color Urine Appearance Urine pH Ur Specific [place] Urine Protein Urine Glucose (UA) Urine Ketones Urine Blood Urine Nitrite Ur Leukocyte Esterase Urine RBC Urine WBC Ur Squamous Epith Cells Urine Bacteria Hyaline Casts Urine Osmolality Ur Random Sodium Stool Occult Blood Vancomycin Trough Random Vancomycin COVID-19 (PADMA) COVID-19 Clin Com Blood Type Antibody Screen Crossmatch 10/25/22 10/25/22 10/25/22 11:19 11:48 12:04 WBC RBC Hgb Hct MCV MCH MCHC RDW Plt Count MPV Immature Gran % (Auto) Neut % (Auto) Lymph % (Auto) Gilliam % (Auto) Eos % (Auto) Baso % (Auto) Lymph # (Auto) Gilliam # (Auto) Eos # (Auto) Baso # (Auto) Abs Immat Gran (auto) Absolute Neuts (auto) Absolute Nucleated RBC Nucleated RBC % (auto) Neutrophils % (Manual) Band Neutrophils % Lymphocytes % (Manual) Atypical Lymphs % (Man) Monocytes % (Manual) Eosinophils % (Manual) Basophils % (Manual) Metamyelocytes % Myelocytes % Abs Neuts (Manual) Lymphocytes # (Manual) Atyp Lymphs # (Manual) Monocytes # (Manual) Eosinophils # (Manual) Basophils # (Manual) Metamyelocytes # Myelocytes # Nucleated RBCs Toxic Granulation Dohle Bodies WBC Morphology Comment Platelet Estimate Large Platelets Plt Morphology Comment RBC Morphology Polychromasia Hypochromasia Basophilic Stippling Microcytosis Macrocytosis Spherocytes Target Cells Stomatocytes [place] Cells Acanthocytes (Spur) Smear Tech's Comments Smear Path Review PT INR O2 Saturation ABG pH at Pt Temp ABG pCO2 at Pt Temp ABG pO2 at Pt Temp ABG HCO3 ABG Base Excess (Actual) VBG pH VBG pCO2 VBG pO2 VBG HCO3 VBG O2 Saturation VBG Base Excess Sodium Potassium Chloride Carbon Dioxide Anion Gap BUN Creatinine Estim Creat Clear Calc Estimated GFR POC Glucose 76 86 Random Glucose Fasting Glucose Estimat Average Glucose Hemoglobin A1c % Lactic Acid Lactic Acid F/U @ 2Hr Lactic Acid F/U @ 4Hr Calcium Phosphorus Magnesium Total Bilirubin AST ALT Alkaline Phosphatase Ammonia Troponin I High Sens C-Reactive Protein Total Protein Albumin Triglycerides Vitamin B12 Folate TSH Urine Color Urine Appearance Urine pH Ur Specific [place] Urine Protein Urine Glucose (UA) Urine Ketones Urine Blood Urine Nitrite Ur Leukocyte Esterase Urine RBC Urine WBC Ur Squamous Epith Cells Urine Bacteria Hyaline Casts Urine Osmolality Ur Random Sodium Stool Occult Blood Vancomycin Trough Random Vancomycin COVID-19 (PADMA) COVID-19 Clin Com Blood Type A Positive Antibody Screen NEGATIVE Crossmatch 10/25/22 10/25/22 16:04 19:54 WBC RBC Hgb Hct MCV MCH MCHC RDW Plt Count MPV Immature Gran % (Auto) Neut % (Auto) Lymph % (Auto) Gilliam % (Auto) Eos % (Auto) Baso % (Auto) Lymph # (Auto) Gilliam # (Auto) Eos # (Auto) Baso # (Auto) Abs Immat Gran (auto) Absolute Neuts (auto) Absolute Nucleated RBC Nucleated RBC % (auto) Neutrophils % (Manual) Band Neutrophils % Lymphocytes % (Manual) Atypical Lymphs % (Man) Monocytes % (Manual) Eosinophils % (Manual) Basophils % (Manual) Metamyelocytes % Myelocytes % Abs Neuts (Manual) Lymphocytes # (Manual) Atyp Lymphs # (Manual) Monocytes # (Manual) Eosinophils # (Manual) Basophils # (Manual) Metamyelocytes # Myelocytes # Nucleated RBCs Toxic Granulation Dohle Bodies WBC Morphology Comment Platelet Estimate Large Platelets Plt Morphology Comment RBC Morphology Polychromasia Hypochromasia Basophilic Stippling Microcytosis Macrocytosis Spherocytes Target Cells Stomatocytes [place] Cells Acanthocytes (Spur) Smear Tech's Comments Smear Path Review PT INR O2 Saturation ABG pH at Pt Temp ABG pCO2 at Pt Temp ABG pO2 at Pt Temp ABG HCO3 ABG Base Excess (Actual) VBG pH VBG pCO2 VBG pO2 VBG HCO3 VBG O2 Saturation VBG Base Excess Sodium Potassium Chloride Carbon Dioxide Anion Gap BUN Creatinine Estim Creat Clear Calc Estimated GFR POC Glucose 72 79 Random Glucose Fasting Glucose Estimat Average Glucose Hemoglobin A1c % Lactic Acid Lactic Acid F/U @ 2Hr Lactic Acid F/U @ 4Hr Calcium Phosphorus Magnesium Total Bilirubin AST ALT Alkaline Phosphatase Ammonia Troponin I High Sens C-Reactive Protein Total Protein Albumin Triglycerides Vitamin B12 Folate TSH Urine Color Urine Appearance Urine pH Ur Specific [place] Urine Protein Urine Glucose (UA) Urine Ketones Urine Blood Urine Nitrite Ur Leukocyte Esterase Urine RBC Urine WBC Ur Squamous Epith Cells Urine Bacteria Hyaline Casts Urine Osmolality Ur Random Sodium Stool Occult Blood Vancomycin Trough Random Vancomycin COVID-19 (PADMA) COVID-19 Clin Com Blood Type Antibody Screen Crossmatch Airway Mallampati Class: Patient Non-Cooperative TM Dist: <=3cm Neck ROM: Limited Denture: Upper and Lower Heart: ok Lungs: Room air Sat 86 %. Mild paradox. High risk for resp decompensation and requiring post op ventilation. Discussed explicitly with the guardian. Assessment and Plan Assessment Anesthesia Assessment: Anesthesia Plan Discussed and Chart Reviewed Final Anesthetic Review Family History of Problems with Anesthesia: Unobtainable History of Problems with Anesthesia: Unobtainable NPO: Yes ASA Class: IV Final Preanesthetic Review: No Changes in Pt Med Stat, Meds/Allgs Chart Reviewed, Consent Obtained/Reviewed and Anes Risks/Benef Reviewed Patient Risk: High Procedure Risk: High Anesthetic Plan Anesthetic Plan: MAC: (high risk for req convers to GETA. Discussed explicitly with guardian and Dr. Santiago.) Disposition: Standard PACU
--- NOTE | 2022-10-26 07:40 | PC.NURSE ---
pt with periods of apnea 2-3 seconds. sats ra 97% . 0740 desat to 87% placed on 4L n/c 99-100%
--- NOTE | 2022-10-26 07:42 | PC.NURSE ---
99%-100% on 4l n/c
--- NOTE | 2022-10-26 08:10 | P.OP_ITS ---
Operative Note Operative Note Date of Service: 10/26/22 Narrative: Preop diagnosis: Angina with aspiration Postop diagnosis: The same Procedure: PEG tube placement Surgeon: Serafin Santiago MD plastic surgery assistant: ANDREA Walker The patient is a 62F with schizoaffective d/o, nonverbal, with dypshagia and aspiration, referred for PEG placement. Her HCP Edith Angeles understood the technique of the planned procedure and was aware of the risks, benefits and alternatives and had given consent. She wants brought to the operating room and placed supine in a head up position under MAC. A surgical timeout was done. The patient received Cefazolin 2g IV. I inserted the endoscope through the oral orifice into the oropharynx. The vocal chords were visualized. The esophageal slit was intubated and the scope was advance through this all the way through the entire length of the esophagus into the stomach., The stomach was insufflated. Transillumination was easily seen on the epigastric area. Indentation of the anterior stomach wall was seen with pressure on the epigastric area using a finger. This area was chosen for the PEG placement.This was prepped and draped. Lidocaine 1% was used for local anesthesia. A short stab incision was made on the skin using a blade 11. The large needle with the cannula sheath was inserted and seen in the lumen. The needle was removed. The guidewire was inserted thorught the cannula sheatth and was grasped with a snare.This was pulled out with the endoscope. The guidewire was looped to the PEG tube and was pulled out through the abdominal wall until the internal bolster felt snug. I reinserted the scope to the stomach and the internal bolster was seen in good position.There was no bleeding or lesions seen in the stomach. The external bolster was placed snug on the skin and the scope was completely withdrawn. The procedure was completed. See tolerated the procedure well. There were no immediate complications. The patient was transferred to the PACU with stable vital signs.
--- NOTE | 2022-10-26 08:29 | P.BOP_ITS ---
Brief Operative Note Date of Service: 10/26/22 Pre-op diagnosis: dysphagia, aspiration Post-op diagnosis: same Procedure: PEG tube placement Implants: 20F PEG tube Surgeon: CLIVE SCHROEDER Anesthesia: MAC Was an Printed Circuit Board Panels Deburrer used for this Procedure?: No Printed Circuit Board Panels Deburrer: Fatuma Walker Estimated blood loss (mL): 1 Pathology: none sent Condition: stable Disposition: PACU
--- NOTE | 2022-10-26 09:36 | MHC.CLN ---
F/U PEG PLACEMENT THIS AM REVIEWED LABS PT IS CURRENTLY NPO AND PPN D/C WHEN TF TO START; RECOMMEND PROMOTE AT MAX GOAL RATE 70ML/HR WITH 240ML FREE WATER FLUSHES Q 6HRS TO PROVIDE 1680KCLAS (23KCALS/KG), 105G PROTEIN (1.4G/KG), 2369ML TOTAL WATER FROM FORMULA AND FLUSHES (32ML/KG) START FORMULA AT 20ML/HR AND INCREASE BY 10ML Q 4 HRS UNTIL MAX GOAL IS ACHIEVED TF WILL PROMOTE WOUND HEALING MONITOR TOLERANCE, RESIDUALS AND LYTES FOLLOWING WITH TEAM
[2022-10-26] MEDS: Divalproex Sodium Sprinkles 125 MG CAP.DR.SPR 1000 MG PO ×2 (09:47→21:16)
[2022-10-26] MEDS: Famotidine/PF 20 MG/2 ML VIAL IVPUSH (09:47)
[2022-10-26] MEDS: Zinc Oxide 20% Ointment 28.35 GM TUBE 1 APPL TOPICAL (09:47)
[2022-10-26] MEDS: Folic Acid 1 MG TABLET PO (09:47)
[2022-10-26] MEDS: QUEtiapine Fumarate 50 MG TABLET PO ×3 (09:47→21:15)
[2022-10-26 09:56] LABS: Glucose, Whole Blood 79 mg/dL (60-115)
[2022-10-26 11:36] LABS: Glucose, Whole Blood 79 mg/dL (60-115)
--- NOTE | 2022-10-26 11:51 | PM.PNNEP ---
Subjective Subjective Date of Service: 10/26/22 Interval history: no headache, nausea no headache, nausea no headache, nausea This patient is doing wellThis note is constructed using voice recognition software. While every effort has been made to ensure accuracy, air lift operator errors may have been included. abdomen soft Legs no edema abdomen soft Dr. Rene Oseguera Stromal go ahead Dr. Pal Legs no edema Physical Exam Vital Signs: Vital Signs: Last Vital Signs Temp 99.1 F 10/26/22 09:59 Pulse 90 10/26/22 09:59 Resp 20 10/26/22 09:59 BP 106/55 L 10/26/22 09:59 Pulse Ox 94 10/26/22 09:59 O2 Del Method Room Air 10/26/22 09:59 O2 Flow Rate 3 10/22/22 07:48 FiO2 21 10/02/22 07:00 BMI result Body Mass Index 32.1 Objective Data Labs 10/23/22 06:48 10/24/22 07:04 Labs: Laboratory Results - last 24 hr 10/25/22 10/25/22 10/25/22 11:48 12:04 16:04 POC Glucose 86 72 Blood Type A Positive Antibody Screen NEGATIVE 10/25/22 10/26/22 10/26/22 19:54 09:51 11:15 POC Glucose 79 79 79 Blood Type Antibody Screen Microbiology Microbiology Results: Microbiology 10/01/22 18:06 Blood - Venous Blood Culture - Final No growth after 5 days. 10/01/22 18:06 Blood - Venous Blood Culture - Final No growth after 5 days. 09/29/22 23:00 Heel, Left Gram Stain - Final 09/29/22 23:00 Heel, Left Routine Culture - Final Proteus mirabilis Methicillin Res Staph Aureus 09/29/22 14:08 Blood - Venous Blood Culture - Final No growth after 5 days. 09/29/22 14:08 Blood - Venous Blood Culture - Final Coag negative Staphylococcus Peptostreptococcus species 09/29/22 23:55 Sputum - Suctioned Gram Stain - Final 09/29/22 23:55 Sputum - Suctioned Sputum Culture - Final 09/29/22 Unknown Urine Catheterized - Randall Catheter Urine Culture - Final Assessment & Plan Time Spent With Patient Time: Total time managing care of this patient today ____ minutes. Progress Note: Quality Stroke Does the patient have a stroke diagnosis?: No
--- NOTE | 2022-10-26 12:04 | P.PNIM_ITS ---
Subjective Subjective Date of Service: 10/26/22 Interval History: f/u aspiration and being eval for PEG no new isues, PEG put in today Physical Exam Vital Signs: Vital Signs: Last Vital Signs Temp 99.1 F 10/26/22 09:59 Pulse 90 10/26/22 09:59 Resp 20 10/26/22 09:59 BP 106/55 L 10/26/22 09:59 Pulse Ox 94 10/26/22 09:59 O2 Del Method Room Air 10/26/22 09:59 O2 Flow Rate 3 10/22/22 07:48 FiO2 21 10/02/22 07:00 BMI result Body Mass Index 32.1 Const: Other: Gen:? Awake, making noises, no resp distress Neck: supple Lungs:? Bilateral coarse breath sound Heart:? Tachy regular rate and rhythm Abd: soft, non-tender, non-distended Ext:? Bilateral upper and lower extremity edema Skin: warm/well-perfused Neuro: alert, nonverbal, moving all extremities Psych: impaired insight Objective Data Active Medications Acetaminophen (Acetaminophen Supp 650 Mg Supp.Rect) 650 mg TN Q6H PRN PRN Reason: Fever Last Admin: 10/07/22 01:59 Dose: 650 mg Documented By: ANTOIC Heparin Sodium (Porcine) 50 (units/ Sodium Chloride 5 ml) 0 units IVFLUSH QS HIFT [facility] Last Admin: 10/26/22 07:27 Dose: Not Given Documented By: YAMILE Non-Admin Reason: no midline Divalproex Sodium (Divalproex Sodium Sprinkles 125 Mg ) 1,000 mg PO BID [facility] Last Admin: 10/26/22 09:47 Dose: 1,000 mg Documented By: YAMILE Enoxaparin Sodium (Enoxaparin Sodium 100 Mg/Ml Syringe) 90 mg SUBCUT Q12H [facility] Last Admin: 10/26/22 02:46 Dose: Not Given Documented By: MAHNAZ Non-Admin Reason: scheduled procedure Famotidine (Famotidine/Pf 20 Mg/2 Ml Vial) 20 mg IVPUSH DAILY [facility] Last Admin: 10/26/22 09:47 Dose: 20 mg Documented By: YAMILE Fentanyl (Fentanyl Citrate/Pf 100 Mcg/2 Ml Vial) 25 mcg IVPUSH Q5M PRN; Protocol PRN Reason: Pain, Moderate(Pain Scale 4-6) Folic Acid (Folic Acid 1 Mg Tablet) 1 mg PO DAILY [facility] Last Admin: 10/26/22 09:47 Dose: 1 mg Documented By: YAMILE Glucose (Glucose Gel 15 Gm Gel..Gram.) 15 gm PO Q15M PRN; Protocol PRN Reason: per Hypoglycemia Standing Ord. Dextrose (D10) 250 mls @ 750 mls/hr IV Q15M PRN; Protocol PRN Reason: per Hypoglycemia Standing Ord. Insulin Human Lispro (Insulin Lispro 100 Unit/Ml 3 Ml Vial) 0 unit SUBCUT QIDACHS [facility]; Protocol Last Admin: 10/26/22 11:47 Dose: Not Given Documented By: YAMILE Non-Admin Reason: No Insulin Coverage Levothyroxine Sodium (Levothyroxine Sodium 100 Mcg/5 Ml Vial) 50 mcg IVPUSH DAILY@0600 [facility] Last Admin: 10/26/22 06:06 Dose: 50 mcg Documented By: MAHNAZ Mirtazapine (Mirtazapine 7.5 Mg Tablet) 7.5 mg PO BEDTIME [facility] Last Admin: 10/25/22 22:59 Dose: 7.5 mg Documented By: MAHNAZ Morphine Sulfate (Morphine Sulfate 2 Mg/Ml Cartridge) 2 mg IVPUSH Q4H PRN; Protocol PRN Reason: Pain, Severe (Pain Scale 7-10) Ondansetron HCl (Ondansetron Hcl 4 Mg/2 Ml Vial) 4 mg IVPUSH Q4H PRN PRN Reason: Nausea and Vomiting Last Admin: 10/05/22 14:18 Dose: 4 mg Documented By: MILTON Oxycodone HCl (Oxycodone Hcl Immed Release 5 Mg Tablet) 5 mg PO Q4H PRN PRN Reason: Pain, Moderate(Pain Scale 4-6) Quetiapine Fumarate (Quetiapine Fumarate 50 Mg Tablet) 50 mg PO TID [facility] Last Admin: 10/26/22 09:47 Dose: 50 mg Documented By: YAMILE Zinc Oxide (Zinc Oxide 20% Ointment 28.35 Gm Tube) 1 appl TOPICAL BID [facility]; Protocol Last Admin: 10/26/22 09:47 Dose: 1 appl Documented By: YAMILE Labs 10/23/22 06:48 05/09/23 07:04 Labs: Laboratory Results - last 24 hr 10/25/22 10/25/22 10/25/22 12:04 16:04 19:54 POC Glucose 72 79 Blood Type A Positive Antibody Screen NEGATIVE 10/26/22 10/26/22 09:51 11:15 POC Glucose 79 79 Blood Type Antibody Screen Assessment and Plan (1) Aspiration into respiratory tract: Status: Acute Plan 62yo F admitted initially to ICU for pressor support for sepsis due to UTI. Transferred to floor then vomited, developed aspiration pneumonitis # aspiration pneumonitis/ recurrent aspiration - finished 10-day course of IV antibiotic on 10/09, but developed hypoxia; repeat chest x-ray 10/10 showed new infiltrate, therefore placed back on IV Zosyn 10/10- 10/15 - re-evaluated by speech therapy, and required MBSS - given dysphagia + recurrent aspirations and decreased PO intake, pt placed on IV PPN. discussion with pt's guardian resulted in plan to proceed with PEG placement - high risk of requiring continued ventilation postop; no ICU bed available, so PEG tube placed 10/26 # acute hypoxic resp failure - treated 2x with ABX for aspiration pneumonia - frequent suctioning and close monitoring for aspiration with one-to-one feeding; keep head of bed elevated # hypernatremia, hypovolemic - resolved s/p D5W repletion # hypoKalemia - repleted, chec lab today # hyperglycemia without DM - A1c 5.3, give correction-dose lispro # acute/chronic macrocytic anemia # folate deficiency - s/p 2u pRBCs 10/03/22 and 1u pRBCs 10/15/22 - replacing folate # hx of PE - apixaban held 10/13 for PEG placement ; currently on therapeutic lovenox, hold next dose # schizoaffective disorder - continue valproate, quetiapine, mirtazapine # UTI, multiple - completed antibiotics Dysphagia/aspiration--puree+nectar thick,tube feed to start tomorrow # hypothyroidism - continue LT4 # fluid overload - likely due to hypoalbuminemia + hypotonic fluid given IV; given 1 dose HCTZ on 10/14 # multiple wounds - R posterior knee, unstageable: silver alginate - coccyx, stage 2: Zn oxide/silver alginate - B heels, unstageable: silver alginate - R posterior ankle, unstageable: Betadine paint - R hand, skin tear: Xeroform #Nutrition: Diet per nutrition, PEG today # VTE ppx: apixaban on hold, lovenox until after PEG # dispo: eventual return to [facility] for LTC In my clinical judgment, the patient requires continued inpatient hospitalization for the following reasons: PEG tube placement tomorrow Time Spent With Patient Time: Total time managing care of this patient today ____ minutes. Quality Stroke Does the patient have a stroke diagnosis?: No VTE Prior VTE?: No VTE Risk Level:: Medical - moderate - high VTE Device Contraindication: N/A - Device Ordered VTE Drug Contraindication: N/A - Med Ordered
--- NOTE | 2022-10-26 12:16 | PM.EVENT ---
Event Note Date of Service: 10/26/22 Event Note: seen postop underwent uneventful PEG placement this morning mental status as baseline abd soft dressings dry stable VS ok to start PEG feeds tomorrow ok to restart Lovenox tomorrow Time Spent With Patient Time: Total time managing care of this patient today ____ minutes.
[2022-10-26 12:48] LABS: Hemoglobin 8.1 g/dl (12.0-16.0); Mean Corpuscular Hemoglobin 30.5 pg (27.0-33.0); Mean Corpuscular Volume 101.5 fL (80.0-98.0); Mean Platelet Volume 12.4 fL (9.4-12.3); NRBC Pct Auto 0.4 /100WBC (0.0-0.2); Platelet Count 352 X10*3/uL (160-400); Red Blood Count 2.66 X10*6/uL (4.20-5.50); Red Cell Distribution Width 17.2 % (11.0-16.0); White Blood Count 9.5 X10*3/uL (4.8-10.8)
[2022-10-26 13:05] LABS: Anion Gap 13 (12-20); Blood Urea Nitrogen 44 mg/dL (9-16); Calcium 10.2 mg/dL (8.4-10.2); Carbon Dioxide 24 mmol/L (22-29); Chloride 111 mmol/L (96-108); Creatinine Clr Calc Pharmacy 69.7; Estimated Glomerular Filt Rate 56; Glucose Random 77 mg/dL (60-115); Potassium 4.1 mmol/L (3.3-5.1); Sodium 144 mmol/L (135-145)
[2022-10-26 16:38] LABS: Glucose, Whole Blood 70 mg/dL (60-115)
[2022-10-26 20:02] LABS: Glucose, Whole Blood 77 mg/dL (60-115)
[2022-10-26] MEDS: Mirtazapine 7.5 MG TABLET PO (21:15)
[2022-10-27] VITALS (7 sets, daily range): BP systolic 99–124; BP diastolic 51–57; PULSE 76–100; RESP 18–20; TEMP 36.2–37.1; O2SAT 92–98
[2022-10-27] MEDS: Levothyroxine Sodium 100 MCG/5 ML VIAL 50 MCG IVPUSH (06:09)
[2022-10-27 07:38] LABS: Glucose, Whole Blood 88 mg/dL (60-115)
[2022-10-27] MEDS: Folic Acid 1 MG TABLET PO (09:38)
--- NOTE | 2022-10-27 09:41 | MHC.CLN ---
F/U PEG PLACEMENT 10/26 OK TO START USING PEG PER DR SCHROEDER REVIEWED LABS RECOMMEND PROMOTE AT MAX GOAL RATE 70ML/HR WITH 240ML FREE WATER FLUSHES Q 6HRS TO PROVIDE 1680KCLAS (23KCALS/KG), 105G PROTEIN (1.4G/KG), 2369ML TOTAL WATER FROM FORMULA AND FLUSHES (32ML/KG) START FORMULA AT 20ML/HR AND INCREASE BY 10ML Q 4 HRS UNTIL MAX GOAL IS ACHIEVED TF WILL PROMOTE WOUND HEALING MONITOR TOLERANCE, RESIDUALS AND LYTES CONTINUE PUREED WITH NT LIQ-SUPERVISOR FRONT FOLLOWING
[2022-10-27] MEDS: Famotidine/PF 20 MG/2 ML VIAL IVPUSH (09:42)
[2022-10-27] MEDS: Divalproex Sodium Sprinkles 125 MG CAP.DR.SPR 1000 MG PO ×2 (09:42→22:56)
[2022-10-27] MEDS: QUEtiapine Fumarate 50 MG TABLET PO ×3 (09:42→22:55)
--- NOTE | 2022-10-27 11:10 | HO.PM.IMPN ---
Subjective Subjective Date of Service: 10/27/22 Interval History: PEg inserted yesterday without any isue Physical Exam Vital Signs: Vital Signs: Last Vital Signs Temp 97.8 F 10/27/22 08:00 Pulse 89 10/27/22 08:00 Resp 19 10/27/22 08:00 BP 109/51 L 10/27/22 08:00 Pulse Ox 93 10/27/22 08:28 O2 Del Method Room Air 10/27/22 08:28 O2 Flow Rate 3 10/22/22 07:48 FiO2 21 10/02/22 07:00 BMI result Body Mass Index 32.1 Const: Other: Gen:? Awake, making noises, no resp distress Neck: supple Lungs:? Bilateral coarse breath sound Heart:? Tachy regular rate and rhythm Abd: soft, non-tender, non-distended, PEG in place Ext:? Bilateral upper and lower extremity edema Skin: warm/well-perfused, generally edematous in arms, no dicrete rednesss to suggest cellulitis Neuro: alert, nonverbal, moving all extremities Psych: impaired insight Objective Data Active Medications Acetaminophen (Acetaminophen Supp 650 Mg Supp.Rect) 650 mg ND Q6H PRN PRN Reason: Fever Last Admin: 10/07/22 01:59 Dose: 650 mg Documented By: ANTDEVORAH Apixaban (Apixaban 2.5 Mg Tablet) 2.5 mg PO BID [facility] Heparin Sodium (Porcine) 50 (units/ Sodium Chloride 5 ml) 0 units IVFLUSH QSHIFT [facility] Last Admin: 10/27/22 09:55 Dose: Not Given Documented By: MARINA Non-Admin Reason: No Access Divalproex Sodium (Divalproex Sodium Sprinkles 125 Mg ) 1,000 mg PO BID [facility] Last Admin: 10/27/22 09:42 Dose: 1,000 mg Documented By: MARINA Famotidine (Famotidine/Pf 20 Mg/2 Ml Vial) 20 mg IVPUSH DAILY [facility] Last Admin: 10/27/22 09:42 Dose: 20 mg Documented By: MARINA Folic Acid (Folic Acid 1 Mg Tablet) 1 mg PO DAILY [facility] Last Admin: 10/27/22 09:38 Dose: 1 mg Documented By: MARINA Glucose (Glucose Gel 15 Gm Gel..Gram.) 15 gm PO Q15M PRN; Protocol PRN Reason: per Hypoglycemia Standing Ord. Dextrose (D10) 250 mls @ 750 mls/hr IV Q15M PRN; Protocol PRN Reason: per Hypoglycemia Standing Ord. Insulin Human Lispro (Insulin Lispro 100 Unit/Ml 3 Ml Vial) 0 unit SUBCUT QIDACHS [facility]; Protocol Last Admin: 10/27/22 09:41 Dose: Not Given Documented By: MARINA Non-Admin Reason: No Insulin Coverage Levothyroxine Sodium (Levothyroxine Sodium 100 Mcg/5 Ml Vial) 50 mcg IVPUSH DAILY@0600 [facility] Last Admin: 10/27/22 06:09 Dose: 50 mcg Documented By: ANNALEE Mirtazapine (Mirtazapine 7.5 Mg Tablet) 7.5 mg PO BEDTIME [facility] Last Admin: 10/26/22 21:15 Dose: 7.5 mg Documented By: ANNALEE Morphine Sulfate (Morphine Sulfate 2 Mg/Ml Cartridge) 2 mg IVPUSH Q4H PRN; Protocol PRN Reason: Pain, Severe (Pain Scale 7-10) Ondansetron HCl (Ondansetron Hcl 4 Mg/2 Ml Vial) 4 mg IVPUSH Q4H PRN PRN Reason: Nausea and Vomiting Last Admin: 10/05/22 14:18 Dose: 4 mg Documented By: MILTON Oxycodone HCl (Oxycodone Hcl Immed Release 5 Mg Tablet) 5 mg PO Q4H PRN PRN Reason: Pain, Moderate(Pain Scale 4-6) Quetiapine Fumarate (Quetiapine Fumarate 50 Mg Tablet) 50 mg PO TID [facility] Last Admin: 10/27/22 09:42 Dose: 50 mg Documented By: MARINA Zinc Oxide (Zinc Oxide 20% Ointment 28.35 Gm Tube) 1 appl TOPICAL BID [facility]; Protocol Last Admin: 10/27/22 03:16 Dose: Not Given Documented By: ANNALEE Non-Admin Reason: Previously Administered Labs 10/26/22 12:40 10/26/22 12:40 Labs: Laboratory Results - last 24 hr 10/26/22 10/26/22 10/26/22 11:15 12:40 12:40 MCV 101.5 H MCH 30.5 MCHC 30.0 L RDW 17.2 H Plt Count 352 MPV 12.4 H Absolute Nucleated RBC 0.040 H Nucleated RBC % (auto) 0.4 H Anion Gap 13 Estim Creat Clear Calc 69.7 Estimated GFR 56 POC Glucose 79 Random Glucose 77 Calcium 10.2 10/26/22 10/26/22 10/27/22 16:31 19:56 07:30 MCV MCH MCHC RDW Plt Count MPV Absolute Nucleated RBC Nucleated RBC % (auto) Anion Gap Estim Creat Clear Calc Estimated GFR POC Glucose 70 77 88 Random Glucose Calcium Assessment and Plan (1) Aspiration into respiratory tract: Status: Acute Plan 62yo F admitted initially to ICU for pressor support for sepsis due to UTI. Transferred to floor then vomited, developed aspiration pneumonitis # aspiration pneumonitis/ recurrent aspiration--has completed Abx therapy, no respiratory symptoms at this time. # acute hypoxic resp failure likely related to aspiration, resolved. now with PEG and modified diet puree and nectar thick liquid, should minimize riks of aspiration but doesn't avoid it entirely # hypernatremia, hypovolemic - resolved s/p D5W repletion # hypoKalemia - repleted, and resolved # hyperglycemia without DM - A1c 5.3, give correction-dose lispro # acute/chronic macrocytic anemia # folate deficiency - s/p 2u pRBCs 10/03/22 and 1u pRBCs 10/15/22 - replacing folate # hx of PE--restart Apixiban today # schizoaffective disorder - continue valproate, quetiapine, mirtazapine # UTI, multiple - completed antibiotics Dysphagia/aspiration-.. has PEG as of 10/26, tube feed starting today with supplemental oral diet # hypothyroidism - continue LT4 # fluid overload - likely due to hypoalbuminemia + hypotonic fluid given IV; given 1 dose HCTZ on 10/14 # multiple wounds - R posterior knee, unstageable: silver alginate - coccyx, stage 2: Zn oxide/silver alginate - B heels, unstageable: silver alginate - R posterior ankle, unstageable: Betadine paint - R hand, skin tear: Xeroform #Nutrition: Tube feed + Oral feed per speech recommendation # VTE ppx:Apixiban # dispo: eventual return to [facility] for LTC Discharge in 24 to 48 hours if toleate tubee feed Time Spent With Patient Time: Total time managing care of this patient today ____ minutes. Quality Stroke Does the patient have a stroke diagnosis?: No VTE Prior VTE?: No VTE Risk Level:: Medical - moderate - high VTE Device Contraindication: N/A - Device Ordered VTE Drug Contraindication: N/A - Med Ordered
[2022-10-27 11:29] LABS: Glucose, Whole Blood 96 mg/dL (60-115)
--- NOTE | 2022-10-27 11:57 | MHC.CM.PN ---
EMR REVIEWED, PT STARTED ON TUBE FEEDS, IF PT TOLERATING ANTIC SHE WILL BE ABLE TO D/C BACK TO [facility] TOMORROW 10/28, SNF UPDATED VIA [facility], CM WILL CONT TO FOLLOW D/C NEEDS.
--- NOTE | 2022-10-27 14:09 | MHC.SLORD ---
Speech Language Pathology Order Status: LICENSED SURVEYOR attempted to see pt today for tx, pt soundly asleep. Per chart review, PEG was placed on 10/26, started on tube feeds today. Per CM, if tolerating well, pt will d/c back to [facility] [place] 10/28. Please refer to MBSS report for LICENSED SURVEYOR recommendations.
--- NOTE | 2022-10-27 14:35 | PM.PNGS ---
Subjective Subjective Date of Service: 10/27/22 Interval history: No events reported Started on low rate PEG feeds today Seems to be tolerating so far Physical Exam Vital Signs: Vital Signs: Last Vital Signs Temp 98.2 F 10/27/22 11:45 Pulse 93 10/27/22 11:45 Resp 20 10/27/22 11:45 BP 102/51 L 10/27/22 11:45 Pulse Ox 93 10/27/22 11:45 O2 Del Method Room Air 10/27/22 11:45 O2 Flow Rate 3 10/22/22 07:48 FiO2 21 10/02/22 07:00 BMI result Body Mass Index 32.1 Const: Other: Mental status unchanged General: no acute distress Resp: Other: Mild shortness of breath GI: Other: Peg tube in place Palpation (GI): Soft to palpation, not firm and no guarding Objective Data Active Medications Acetaminophen (Acetaminophen Supp 650 Mg Supp.Rect) 650 mg MD Q6H PRN PRN Reason: Fever Last Admin: 10/07/22 01:59 Dose: 650 mg Documented By: SUJEY Apixaban (Apixaban 2.5 Mg Tablet) 2.5 mg PO BID [facility] Heparin Sodium (Porcine) 50 (units/ Sodium Chloride 5 ml) 0 units IVFLUSH QSHIFT [facility] Last Admin: 10/27/22 09:55 Dose: Not Given Documented By: MARINA Non-Admin Reason: No Access Divalproex Sodium (Divalproex Sodium Sprinkles 125 Mg ) 1,000 mg PO BID [facility] Last Admin: 10/27/22 09:42 Dose: 1,000 mg Documented By: MARINA Famotidine (Famotidine/Pf 20 Mg/2 Ml Vial) 20 mg IVPUSH DAILY [facility] Last Admin: 10/27/22 09:42 Dose: 20 mg Documented By: MARINA Folic Acid (Folic Acid 1 Mg Tablet) 1 mg PO DAILY [facility] Last Admin: 10/27/22 09:38 Dose: 1 mg Documented By: MARINA Glucose (Glucose Gel 15 Gm Gel..Gram.) 15 gm PO Q15M PRN; Protocol PRN Reason: per Hypoglycemia Standing Ord. Dextrose (D10) 250 mls @ 750 mls/hr IV Q15M PRN; Protocol PRN Reason: per Hypoglycemia Standing Ord. Insulin Human Lispro (Insulin Lispro 100 Unit/Ml 3 Ml Vial) 0 unit SUBCUT QIDACHS [facility]; Protocol Last Admin: 10/27/22 09:41 Dose: Not Given Documented By: MARINA Non-Admin Reason: No Insulin Coverage Levothyroxine Sodium (Levothyroxine Sodium 100 Mcg/5 Ml Vial) 50 mcg IVPUSH DAILY@0600 [facility] Last Admin: 10/27/22 06:09 Dose: 50 mcg Documented By: ANNALEE Mirtazapine (Mirtazapine 7.5 Mg Tablet) 7.5 mg PO BEDTIME [facility] Last Admin: 10/26/22 21:15 Dose: 7.5 mg Documented By: ANNALEE Morphine Sulfate (Morphine Sulfate 2 Mg/Ml Cartridge) 2 mg IVPUSH Q4H PRN; Protocol PRN Reason: Pain, Severe (Pain Scale 7-10) Ondansetron HCl (Ondansetron Hcl 4 Mg/2 Ml Vial) 4 mg IVPUSH Q4H PRN PRN Reason: Nausea and Vomiting Last Admin: 10/05/22 14:18 Dose: 4 mg Documented By: MILTON Oxycodone HCl (Oxycodone Hcl Immed Release 5 Mg Tablet) 5 mg PO Q4H PRN PRN Reason: Pain, Moderate(Pain Scale 4-6) Quetiapine Fumarate (Quetiapine Fumarate 50 Mg Tablet) 50 mg PO TID [facility] Last Admin: 10/27/22 09:42 Dose: 50 mg Documented By: MARINA Zinc Oxide (Zinc Oxide 20% Ointment 28.35 Gm Tube) 1 appl TOPICAL BID [facility]; Protocol Last Admin: 10/27/22 03:16 Dose: Not Given Documented By: ANNALEE Non-Admin Reason: Previously Administered Labs 10/26/22 12:40 10/26/22 12:40 Labs: Laboratory Results - last 24 hr 10/26/22 10/26/22 10/27/22 16:31 19:56 07:30 POC Glucose 70 77 88 10/27/22 11:23 POC Glucose 96 Procedures Date of Service Date of Service: 10/27/22 Progress Note: A&P Assessment and plan (1) Dysphagia: Status: Acute Assessment and Plan: Status peg tube placement Has been started on PEG tube feeds Keep external bolster of the PEG tube snug on the abdominal wall The rest of the management as per the hospitalist service Time Spent With Patient Time: Total time managing care of this patient today ____ minutes. Quality Stroke Does the patient have a stroke diagnosis?: No VTE Prior VTE?: No VTE Risk Level:: Medical - moderate - high VTE Device Contraindication: N/A - Device Ordered VTE Drug Contraindication: N/A - Med Ordered
[2022-10-27] MEDS: Apixaban 2.5 MG TABLET PO ×2 (14:41→22:56)
[2022-10-27] MEDS: Zinc Oxide 20% Ointment 28.35 GM TUBE 1 APPL TOPICAL ×2 (14:41→22:56)
--- NOTE | 2022-10-27 14:47 | PC.NURSE ---
No residual from feeding tube, increased to 30ml per hr
[2022-10-27 15:29] LABS: Glucose, Whole Blood 108 mg/dL (60-115)
--- NOTE | 2022-10-27 18:45 | PC.NURSE ---
checked feeding line for residual ,increased rate to 40 ml/hr
--- NOTE | 2022-10-27 18:46 | PC.NURSE ---
Redressed wounds as noted on shhet in patients room
[2022-10-27 20:51] LABS: Glucose, Whole Blood 95 mg/dL (60-115)
[2022-10-27] MEDS: Mirtazapine 7.5 MG TABLET PO (22:56)
[2022-10-28] VITALS (7 sets, daily range): BP systolic 110–142; BP diastolic 56–65; PULSE 92–110; RESP 20; TEMP -17.7–36.8; O2SAT 92–95
[2022-10-28] MEDS: Levothyroxine Sodium 100 MCG/5 ML VIAL 50 MCG IVPUSH (06:02)
[2022-10-28 08:18] LABS: Glucose, Whole Blood 116 mg/dL (60-115)
--- NOTE | 2022-10-28 09:18 | P.PNIM_ITS ---
Subjective Subjective Date of Service: 10/28/22 Interval History: PEg inserted yesterday without any isue Physical Exam Vital Signs: Vital Signs: Last Vital Signs Temp 97.3 F 10/28/22 07:33 Pulse 92 10/28/22 07:33 Resp 20 10/28/22 07:33 BP 110/65 10/28/22 07:33 Pulse Ox 93 10/28/22 08:00 O2 Del Method Room Air 10/28/22 08:00 O2 Flow Rate 3 10/22/22 07:48 FiO2 21 10/02/22 07:00 BMI result Body Mass Index 32.1 Objective Data Active Medications Acetaminophen (Acetaminophen Supp 650 Mg Supp.Rect) 650 mg [place] Q6H PRN PRN Reason: Fever Last Admin: 10/07/22 01:59 Dose: 650 mg Documented By: ANTDEVORAH Apixaban (Apixaban 2.5 Mg Tablet) 2.5 mg PO BID [facility] Last Admin: 10/27/22 22:56 Dose: 2.5 mg Documented By: MAHNAZ Heparin Sodium (Porcine) 50 (units/ Sodium Chloride 5 ml) [facility] Last Admin: 10/28/22 08:48 Dose: Not Given Documented By: KALEIGH Non-Admin Reason: no midline Divalproex Sodium (Divalproex Sodium Sprinkles 125 Mg ) 1,000 mg PO BID [facility] Last Admin: 10/27/22 22:56 Dose: 1,000 mg Documented By: MAHNAZ Famotidine (Famotidine/Pf 20 Mg/2 Ml Vial) 20 mg IVPUSH DAILY [facility] Last Admin: 10/27/22 09:42 Dose: 20 mg Documented By: MARINA Folic Acid (Folic Acid 1 Mg Tablet) 1 mg PO DAILY [facility] Last Admin: 10/27/22 09:38 Dose: 1 mg Documented By: MARINA Glucose (Glucose Gel 15 Gm Gel..Gram.) 15 gm PO Q15M PRN; Protocol PRN Reason: per Hypoglycemia Standing Ord. Dextrose (D10) 250 mls @ 750 mls/hr IV Q15M PRN; Protocol PRN Reason: per Hypoglycemia Standing Ord. Insulin Human Lispro (Insulin Lispro 100 Unit/Ml 3 Ml Vial) 0 unit SUBCUT QIDACHS [facility]; Protocol Last Admin: 10/28/22 08:47 Dose: Not Given Documented By: KALEIGH Non-Admin Reason: No Insulin Coverage Levothyroxine Sodium (Levothyroxine Sodium 100 Mcg/5 Ml Vial) 50 mcg IVPUSH DAILY@0600 [facility] Last Admin: 10/28/22 06:02 Dose: 50 mcg Documented By: STEFANIE Mirtazapine (Mirtazapine 7.5 Mg Tablet) 7.5 mg PO BEDTIME [facility] Last Admin: 10/27/22 22:56 Dose: 7.5 mg Documented By: MAHNAZ Morphine Sulfate (Morphine Sulfate 2 Mg/Ml Cartridge) 2 mg IVPUSH Q4H PRN; Protocol PRN Reason: Pain, Severe (Pain Scale 7-10) Ondansetron HCl (Ondansetron Hcl 4 Mg/2 Ml Vial) 4 mg IVPUSH Q4H PRN PRN Reason: Nausea and Vomiting Last Admin: 10/05/22 14:18 Dose: 4 mg Documented By: MILTON Oxycodone HCl (Oxycodone Hcl Immed Release 5 Mg Tablet) 5 mg PO Q4H PRN PRN Reason: Pain, Moderate(Pain Scale 4-6) Quetiapine Fumarate (Quetiapine Fumarate 50 Mg Tablet) 50 mg PO TID [facility] Last Admin: 10/27/22 22:55 Dose: 50 mg Documented By: MAHNAZ Zinc Oxide (Zinc Oxide 20% Ointment 28.35 Gm Tube) 1 appl TOPICAL BID [facility]; Protocol Last Admin: 10/27/22 22:56 Dose: 1 appl Documented By: MAHNAZ Labs 10/26/22 12:40 10/26/22 12:40 Labs: Laboratory Results - last 24 hr 10/27/22 10/27/22 10/27/22 11:23 15:23 20:36 POC Glucose 96 108 95 10/28/22 07:50 POC Glucose 116 H Assessment and Plan (1) Aspiration into respiratory tract: Status: Acute Plan 62yo F admitted initially to ICU for pressor support for sepsis due to UTI. Transferred to floor then vomited, developed aspiration pneumonitis # aspiration pneumonitis/ recurrent aspiration--has completed Abx therapy, no respiratory symptoms at this time. # acute hypoxic resp failure likely related to aspiration, resolved. now with PEG and modified diet puree and nectar thick liquid, should minimize riks of aspiration but doesn't avoid it entirely # hypernatremia, hypovolemic - resolved s/p D5W repletion # hypoKalemia - repleted, and resolved # hyperglycemia without DM - A1c 5.3, give correction-dose lispro # acute/chronic macrocytic anemia # folate deficiency - s/p 2u pRBCs 10/03/22 and 1u pRBCs 10/15/22 - replacing folate # hx of PE--restart Apixiban today # schizoaffective disorder - continue valproate, quetiapine, mirtazapine # UTI, multiple - completed antibiotics Dysphagia/aspiration-.. has PEG as of 10/26, tube feed starting today with supplemental oral diet # hypothyroidism - continue LT4 # fluid overload - likely due to hypoalbuminemia + hypotonic fluid given IV; given 1 dose HCTZ on 10/14 # multiple wounds - R posterior knee, unstageable: silver alginate - coccyx, stage 2: Zn oxide/silver alginate - B heels, unstageable: silver alginate - R posterior ankle, unstageable: Betadine paint - R hand, skin tear: Xeroform #Nutrition: Tube feed + Oral feed per speech recommendation # VTE ppx:Apixiban # dispo: eventual return to [facility] for LTC Discharge in 24 to 48 hours if toleate tubee feed Time Spent With Patient Time: Total time managing care of this patient today ____ minutes. Quality Stroke Does the patient have a stroke diagnosis?: No VTE Prior VTE?: No VTE Risk Level:: Medical - moderate - high VTE Device Contraindication: N/A - Device Ordered VTE Drug Contraindication: N/A - Med Ordered
[2022-10-28] MEDS: Divalproex Sodium Sprinkles 125 MG CAP.DR.SPR 1000 MG PO ×2 (09:31→20:15)
[2022-10-28] MEDS: QUEtiapine Fumarate 50 MG TABLET PO ×3 (09:31→20:16)
[2022-10-28] MEDS: Famotidine/PF 20 MG/2 ML VIAL IVPUSH (09:31)
[2022-10-28] MEDS: Folic Acid 1 MG TABLET PO (09:31)
[2022-10-28] MEDS: Apixaban 2.5 MG TABLET PO ×2 (09:31→20:16)
--- NOTE | 2022-10-28 11:16 | MHC.CM.PN ---
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 Associate Director Regulatory Affairs indicated she would have to call her store sales manager to ask if they can do this over the W/E and will call this RNCM back. Pending return call. Will notify MD when SNF calls back, MD aware. CM to follow.
[2022-10-28 11:42] LABS: Glucose, Whole Blood 120 mg/dL (60-115)
[2022-10-28 16:02] LABS: Glucose, Whole Blood 110 mg/dL (60-115)
[2022-10-28 19:40] LABS: Glucose, Whole Blood 140 mg/dL (60-115)
[2022-10-28] MEDS: Mirtazapine 7.5 MG TABLET PO (20:16)
[2022-10-28] MEDS: Zinc Oxide 20% Ointment 28.35 GM TUBE 1 APPL TOPICAL (20:16)
[2022-10-29] VITALS (7 sets, daily range): BP systolic 99–136; BP diastolic 47–66; PULSE 100–106; RESP 20; TEMP 36–36.6; O2SAT 90–96
[2022-10-29] MEDS: Levothyroxine Sodium 100 MCG/5 ML VIAL 50 MCG IVPUSH (05:25)
[2022-10-29 07:58] LABS: Glucose, Whole Blood 137 mg/dL (60-115)
[2022-10-29] MEDS: QUEtiapine Fumarate 50 MG TABLET PO ×3 (08:25→21:41)
[2022-10-29] MEDS: Divalproex Sodium Sprinkles 125 MG CAP.DR.SPR 1000 MG PO ×2 (08:25→21:40)
[2022-10-29] MEDS: Famotidine/PF 20 MG/2 ML VIAL IVPUSH (08:26)
[2022-10-29] MEDS: Apixaban 2.5 MG TABLET PO ×2 (08:26→21:41)
[2022-10-29] MEDS: Folic Acid 1 MG TABLET PO (08:26)
[2022-10-29] MEDS: Zinc Oxide 20% Ointment 28.35 GM TUBE 1 APPL TOPICAL ×2 (08:27→22:00)
--- NOTE | 2022-10-29 09:15 | P.PNIM_ITS ---
Subjective Subjective Date of Service: 10/29/22 Interval History: Tolerating PEG at rate Physical Exam Vital Signs: Vital Signs: Last Vital Signs Temp 97.8 F 10/29/22 07:45 Pulse 100 10/29/22 07:45 Resp 20 10/29/22 07:45 BP 102/50 L 10/29/22 07:45 Pulse Ox 92 10/29/22 07:46 O2 Del Method Room Air 10/29/22 07:46 O2 Flow Rate 3 10/22/22 07:48 FiO2 21 10/02/22 07:00 BMI result Body Mass Index 32.1 Objective Data Active Medications Acetaminophen (Acetaminophen Supp 650 Mg Supp.Rect) 650 mg [place] Q6H PRN PRN Reason: Fever Last Admin: 10/07/22 01:59 Dose: 650 mg Documented By: ANTDEVORAH Apixaban (Apixaban 2.5 Mg Tablet) 2.5 mg PO BID [facility] Last Admin: 10/29/22 08:26 Dose: 2.5 mg Documented By: SHIVA Heparin Sodium (Porcine) 50 (units/ Sodium Chloride 5 ml) 0 units IVFLUSH QSHIFT [facility] Last Admin: 10/29/22 08:16 Dose: Not Given Documented By: SHIVA Non-Admin Reason: no midline Divalproex Sodium (Divalproex Sodium Sprinkles 125 Mg ) 1,000 mg PO BID [facility] Last Admin: 10/29/22 08:25 Dose: 1,000 mg Documented By: SHIVA Famotidine (Famotidine/Pf 20 Mg/2 Ml Vial) 20 mg IVPUSH DAILY [facility] Last Admin: 10/29/22 08:26 Dose: 20 mg Documented By: SHIVA Folic Acid (Folic Acid 1 Mg Tablet) 1 mg PO DAILY [facility] Last Admin: 10/29/22 08:26 Dose: 1 mg Documented By: SHIVA Glucose (Glucose Gel 15 Gm Gel..Gram.) 15 gm PO Q15M PRN; Protocol PRN Reason: per Hypoglycemia Standing Ord. Dextrose (D10) 250 mls @ 750 mls/hr IV Q15M PRN; Protocol PRN Reason: per Hypoglycemia Standing Ord. Insulin Human Lispro (Insulin Lispro 100 Unit/Ml 3 Ml Vial) 0 unit SUBCUT QIDACHS [facility]; Protocol Last Admin: 10/29/22 08:16 Dose: Not Given Documented By: SHIVA Non-Admin Reason: No Insulin Coverage Levothyroxine Sodium (Levothyroxine Sodium 100 Mcg/5 Ml Vial) 50 mcg IVPUSH DAILY@0600 [facility] Last Admin: 10/29/22 05:25 Dose: 50 mcg Documented By: TIEN Mirtazapine (Mirtazapine 7.5 Mg Tablet) 7.5 mg PO BEDTIME [facility] Last Admin: 10/28/22 20:16 Dose: 7.5 mg Documented By: TIEN Morphine Sulfate (Morphine Sulfate 2 Mg/Ml Cartridge) 2 mg IVPUSH Q4H PRN; Protocol PRN Reason: Pain, Severe (Pain Scale 7-10) Ondansetron HCl (Ondansetron Hcl 4 Mg/2 Ml Vial) 4 mg IVPUSH Q4H PRN PRN Reason: Nausea and Vomiting Last Admin: 10/05/22 14:18 Dose: 4 mg Documented By: MILTON Oxycodone HCl (Oxycodone Hcl Immed Release 5 Mg Tablet) 5 mg PO Q4H PRN PRN Reason: Pain, Moderate(Pain Scale 4-6) Quetiapine Fumarate (Quetiapine Fumarate 50 Mg Tablet) 50 mg PO TID [facility] Last Admin: 10/29/22 08:25 Dose: 50 mg Documented By: SHIVA Zinc Oxide (Zinc Oxide 20% Ointment 28.35 Gm Tube) 1 appl TOPICAL BID [facility]; Prot ocol Last Admin: 10/29/22 08:27 Dose: 1 appl Documented By: SHIVA Labs 10/26/22 12:40 10/26/22 12:40 Labs: Laboratory Results - last 24 hr 10/28/22 10/28/22 10/28/22 11:27 15:56 19:28 POC Glucose 120 H 110 140 H 10/29/22 07:48 POC Glucose 137 H Assessment and Plan (1) Aspiration into respiratory tract: Status: Acute Plan 62yo F admitted initially to ICU for pressor support for sepsis due to UTI. Transferred to floor then vomited, developed aspiration pneumonitis # aspiration pneumonitis/ recurrent aspiration--has completed Abx therapy, no respiratory symptoms at this time. # acute hypoxic resp failure likely related to aspiration, resolved. now with PEG and modified diet puree and nectar thick liquid, should minimize riks of aspiration but doesn't avoid it entirely # hypernatremia, hypovolemic - resolved s/p D5W repletion # hypoKalemia - repleted, and resolved # hyperglycemia without DM - A1c 5.3, give correction-dose lispro # acute/chronic macrocytic anemia # folate deficiency - s/p 2u pRBCs 10/03/22 and 1u pRBCs 10/15/22 - replacing folate # hx of PE--restart Apixiban today # schizoaffective disorder - continue valproate, quetiapine, mirtazapine # UTI, multiple - completed antibiotics Dysphagia/aspiration-.. has PEG as of 10/26, tube feed at goal and tolerating t hus far # hypothyroidism - continue LT4 # fluid overload - likely due to hypoalbuminemia + hypotonic fluid given IV; given 1 dose HCTZ on 10/14 # multiple wounds - R posterior knee, unstageable: silver alginate - coccyx, stage 2: Zn oxide/silver alginate - B heels, unstageable: silver alginate - R posterior ankle, unstageable: Betadine paint - R hand, skin tear: Xeroform #Nutrition: Tube feed + Oral feed per speech recommendation # VTE ppx:Apixiban # dispo: eventual return to [facility] for LTC Ready for DC when SNF bed is available, Time Spent With Patient Time: Total time managing care of this patient today ____ minutes. Quality Stroke Does the patient have a stroke diagnosis?: No VTE Prior VTE?: No VTE Risk Level:: Medical - moderate - high VTE Device Contraindication: N/A - Device Ordered VTE Drug Contraindication: N/A - Med Ordered
[2022-10-29 11:51] LABS: Glucose, Whole Blood 89 mg/dL (60-115)
[2022-10-29 16:04] LABS: Glucose, Whole Blood 106 mg/dL (60-115)
[2022-10-29 19:37] LABS: Glucose, Whole Blood 112 mg/dL (60-115)
[2022-10-29] MEDS: Mirtazapine 7.5 MG TABLET PO (21:41)
[2022-10-30] VITALS (7 sets, daily range): BP systolic 90–126; BP diastolic 45–56; PULSE 98–118; RESP 14–20; TEMP 36.3–37; O2SAT 91–95
--- NOTE | 2022-10-30 02:04 | PC.NURSE ---
Pt seen on bed , repositioned frequently, alert but unable to utter words to make needs known, Tube feed tolerated, no residuals noted, meds given.
[2022-10-30] MEDS: Levothyroxine Sodium 100 MCG/5 ML VIAL 50 MCG IVPUSH (05:29)
[2022-10-30 07:47] LABS: Glucose, Whole Blood 102 mg/dL (60-115)
[2022-10-30] MEDS: Famotidine/PF 20 MG/2 ML VIAL IVPUSH (08:31)
[2022-10-30] MEDS: Apixaban 2.5 MG TABLET PO ×2 (08:31→22:31)
[2022-10-30] MEDS: Folic Acid 1 MG TABLET PO (08:31)
[2022-10-30] MEDS: QUEtiapine Fumarate 50 MG TABLET PO ×3 (08:31→22:31)
[2022-10-30] MEDS: Divalproex Sodium Sprinkles 125 MG CAP.DR.SPR 1000 MG PO ×2 (08:31→23:04)
[2022-10-30] MEDS: Zinc Oxide 20% Ointment 28.35 GM TUBE 1 APPL TOPICAL ×2 (08:32→23:05)
--- NOTE | 2022-10-30 10:32 | MHC.SLORD ---
Speech Language Pathology Order Status: Pt provided with oral care via mouthwash and swab. Dried secretions removed from lips and tongue. Pt attempted to suck from swab, excess mouthwash was squeezed out prior to presentation. Attempted to present PO for pt- applesauce, thickened juice. Pt refusing to open her mouth upon presentation, despite encouragement and multiple attempts. Pt does accept swab. Per chart review TF were started on 10/27, pt reportedly has been tolerating well. Per MD, pt is ready for d/c when SNF bed available. Pt had MBSS- recommended supplemental PO- NDD1/NT with strict precautions, continue ST at next level of care.
[2022-10-30 11:39] LABS: Glucose, Whole Blood 129 mg/dL (60-115)
[2022-10-30 12:11] LABS: Hematocrit 27.7 % (37.0-47.0); Hemoglobin 7.9 g/dl (12.0-16.0); Mean Corpuscular HGB Conc 28.5 g/dl (31.0-35.0); Mean Corpuscular Volume 105.3 fL (80.0-98.0); Mean Platelet Volume 12.3 fL (9.4-12.3); Platelet Count 368 X10*3/uL (160-400); Red Blood Count 2.63 X10*6/uL (4.20-5.50); Red Cell Distribution Width 18.1 % (11.0-16.0); White Blood Count 15.1 X10*3/uL (4.8-10.8)
--- NOTE | 2022-10-30 12:22 | MHC.CLN ---
F/U PATIENT TOLERATING TUBE FEEDING AT MAX GOAL RATE PROMOTE AT 70ML/HR WITH 240ML FREE WATER FLUSHES Q 6HRS. PROVIDES 1680KCLAS (23KCALS/KG), 105G PROTEIN (1.4G/KG), 2369ML TOTAL WATER FROM FORMULA AND FLUSHES (32ML/KG). TF WITH HIGHER PROTEIN TO PROMOTE WOUND HEALING. ALSO HAS DIET ORDER, PER DOWEL STICKER OPERATOR, DIET IS PUREED WITH NECTAR THICK LIQUIDS. MONITOR TOLERANCE, RESIDUALS AND LYTES.
[2022-10-30 12:26] LABS: Anion Gap 12 (12-20); Blood Urea Nitrogen 37 mg/dL (9-16); Calcium 10.2 mg/dL (8.4-10.2); Carbon Dioxide 28 mmol/L (22-29); Chloride 113 mmol/L (96-108); Creatinine Clr Calc Pharmacy 77.4; Estimated Glomerular Filt Rate > 60; Glucose Random 125 mg/dL (60-115); Potassium 5.9 mmol/L (3.3-5.1); Sodium 147 mmol/L (135-145)
--- NOTE | 2022-10-30 13:17 | P.PNIM_ITS ---
Subjective Subjective Date of Service: 11/07/22 Interval History: Tolerating PEG at rate of 70, seems more lethargic today and less response no hypoxia but concern for gettting septic again Physical Exam Vital Signs: Vital Signs: Last Vital Signs Temp 98.6 F 10/30/22 11:53 Pulse 113 H 10/30/22 11:53 Resp 20 10/30/22 11:53 BP 90/55 L 10/30/22 11:53 Pulse Ox 93 10/30/22 11:53 O2 Del Method Room Air 10/30/22 11:53 O2 Flow Rate 3 10/22/22 07:48 FiO2 21 10/02/22 07:00 BMI result Body Mass Index 32.1 Objective Data Active Medications Acetaminophen (Acetaminophen Supp 650 Mg Supp.Rect) 650 mg CO Q6H PRN PRN Reason: Fever Last Admin: 10/07/22 01:59 Dose: 650 mg Documented By: ANTDEVORAH Apixaban (Apixaban 2.5 Mg Tablet) 2.5 mg PO BID [facility] Last Admin: 10/30/22 08:31 Dose: 2.5 mg Documented By: RINA Heparin Sodium (Porcine) 50 (units/ Sodium Chloride 5 ml) 0 units IVFLUSH QSHIFT [facility] Last Admin: 10/30/22 08:31 Dose: Not Given Documented By: RINA Non-Admin Reason: no midline Divalproex Sodium (Divalproex Sodium Sprinkles 125 Mg ) 1,000 mg PO BID [facility] Last Admin: 10/30/22 08:31 Dose: 1,000 mg Documented By: RINA Famotidine (Famotidine/Pf 20 Mg/2 Ml Vial) 20 mg IVPUSH DAILY [facility] Last Admin: 10/30/22 08:31 Dose: 20 mg Documented By: RINA Folic Acid (Folic Acid 1 Mg Tablet) 1 mg PO DAILY [facility] Last Admin: 10/30/22 08:31 Dose: 1 mg Documented By: RINA Glucose (Glucose Gel 15 Gm Gel..Gram.) 15 gm PO Q15M PRN; Protocol PRN Reason: per Hypoglycemia Standing Ord. Dextrose (D10) 250 mls @ 750 mls/hr IV Q15M PRN; Protocol PRN Reason: per Hypoglycemia Standing Ord. Insulin Human Lispro (Insulin Lispro 100 Unit/Ml 3 Ml Vial) 0 unit SUBCUT QIDACHS [facility]; Protocol Last Admin: 10/30/22 11:42 Dose: Not Given Documented By: RINA Non-Admin Reason: No Insulin Coverage Levothyroxine Sodium (Levothyroxine Sodium 100 Mcg/5 Ml Vial) 50 mcg IVPUSH DAILY@0600 [facility] Last Admin: 10/30/22 05:29 Dose: 50 mcg Documented By: ELIZABETH Mirtazapine (Mirtazapine 7.5 Mg Tablet) 7.5 mg PO BEDTIME [facility] Last Admin: 10/29/22 21:41 Dose: 7.5 mg Documented By: ELIZABETH Morphine Sulfate (Morphine Sulfate 2 Mg/Ml Cartridge) 2 mg IVPUSH Q4H PRN; Pr otocol PRN Reason: Pain, Severe (Pain Scale 7-10) Ondansetron HCl (Ondansetron Hcl 4 Mg/2 Ml Vial) 4 mg IVPUSH Q4H PRN PRN Reason: Nausea and Vomiting Last Admin: 10/05/22 14:18 Dose: 4 mg Documented By: MILTON Oxycodone HCl (Oxycodone Hcl Immed Release 5 Mg Tablet) 5 mg PO Q4H PRN PRN Reason: Pain, Moderate(Pain Scale 4-6) Quetiapine Fumarate (Quetiapine Fumarate 50 Mg Tablet) 50 mg PO TID [facility] Last Admin: 10/30/22 08:31 Dose: 50 mg Documented By: RINA Zinc Oxide (Zinc Oxide 20% Ointment 28.35 Gm Tube) 1 appl TOPICAL BID [facility]; P rotocol Last Admin: 10/30/22 08:32 Dose: 1 appl Documented By: RINA Labs 10/30/22 11:57 10/30/22 11:57 Labs: Laboratory Results - last 24 hr 10/29/22 10/29/22 10/30/22 15:54 19:27 07:29 MCV MCH MCHC RDW Plt Count MPV Absolute Nucleated RBC Nucleated RBC % (auto) Anion Gap Estim Creat Clear Calc Estimated GFR POC Glucose 106 112 102 Random Glucose Calcium 10/30/22 10/30/22 10/30/22 11:30 11:57 11:57 MCV 105.3 H MCH 30.0 MCHC 28.5 L RDW 18.1 H Plt Count 368 MPV 12.3 Absolute Nucleated RBC 0.150 H Nucleated RBC % (auto) 1.0 H Anion Gap 12 Estim Creat Clear Calc 77.4 Estimated GFR > 60 POC Glucose 129 H Random Glucose 125 H Calcium 10.2 Assessment and Plan (1) Dysphagia: Status: Acute (2) Respiratory insufficiency: Status: Acute Plan Patient was? admitted to the ICU due to septic shock and the need for vasopresso rs.? She improved and was discharged from the ICU after 72 hours.? While awaiting to be discharged earlier, she vomitted and developped acute hypoix respiratory failure due to aspiration pneumonia and this raised safety about her PO intake ability and as such, she was started on TPN and? decision was made and agreed upon by her guargian to have a feeding tube to maintain her nutrition and minimize aspiration risk. A feeding tube placement was delayed? until an ICU bed could be secured in the event that she needed to be intubated after the procedure, giving her extremely high risk.? Ultimately the PEG was inserted withough need for ICU admission and she is tolerating tube at maxim rate of 70 recommended by nutrition. Additionally over the coure of time, she has continuously been? followed by [facility] therapy and gained the ability to eat Puree food? with [place] thic liquid. ? 1. Aspiration pneumonitis/ recurrent? aspiration with sepsis, initally treated with ICU as above. Treated with nearly 3 weeks of IV antibiotics, initally 10 days of, then developped repeat aspiration and treated for another week. She is no longer hypoxic, no fever, and WBC is within normal. Strick aspiration precaution to be taking. Acute hypoxic respiratory failure has resolved.? 2. Hypernatremia/hypokalemia--resolved with IVF and potasssium replacement replacment.? Last sodium was 144, last potassium 4.1 4. Pulmonary embolism (by history) on Eliquis , while awaiting surgery was changed to Levenox and after the procedure was changed back to Elquis at her usual dose. 5. Schizoaffective disorder -continue home medications Depakote, Seroquel and mirtazepine? at bedtime 6. Acute on chronic macrocytic anemia status post 2 units of packed RBC hematocrit improved but dropped today to 27.2, no active bleeding noted, normal? B12, low folate ?? Continue folic acid 1 mg daily , drop in hematocrit and platelet question related to IV Zosyn? and better after disccontinue. Last CBC on 10/26 H/H 01/26 7. Dysphagia seen by speech therapy--She as on PPN and was followed closely by speech and ultimately improved and was? started puree diet with honey thick liquid, additionally she is to get nutrition through PEG with promote at max goal of 70 ml /hr with 240 free water shoshes q6 hours 8. UTI(multpile organisms) -completed course of antibiotics. 9. Hypothyroidism continue levothyroxine 10. Fluid overload--treate with HCTZ and improve 11. Heal wound that grew MRSA and Proteus--Treated with Zosyn and Vancomycin was to be discharged but maybe coming septic again: WBC going, tachycardia, no fever. High Sodium , high K get cultures, CXR, empiric Zosyn again, make NPO gain. Start IVF, Lokelam for hyperkalemia, empric Zosyn Time Spent With Patient Time: Total time managing care of this patient today ____ minutes. Quality Stroke Does the patient have a stroke diagnosis?: No VTE Prior VTE?: No VTE Risk Level:: Medical - moderate - high VTE Device Contraindication: N/A - Device Ordered VTE Drug Contraindication: N/A - Med Ordered
--- NOTE | 2022-10-30 14:14 | MHC.CM.PN ---
DC FOR TODAY HAS BEEN POSTPONED DUE TO ABNORMAL LAB RESULTS. [facility] LIAISON UPDATED.TAM IGLESIAS UPDATED WELL.
[2022-10-30] MEDS: Piperacillin Sodium/Tazobactam 4.5 GM in 0.9 % Sodium Chloride 100 ML IV ×2 (14:38→22:32)
[2022-10-30] MEDS: Sodium Zirconium Cyclosilicate 10 GM POWD.PACK G-TUBE (14:38)
[2022-10-30 16:09] LABS: Glucose, Whole Blood 92 mg/dL (60-115)
[2022-10-30 20:40] LABS: Glucose, Whole Blood 134 mg/dL (60-115)
[2022-10-30] MEDS: Mirtazapine 7.5 MG TABLET PO (22:31)
[2022-10-31] VITALS (11 sets, daily range): BP systolic 92–109; BP diastolic 46–57; PULSE 92–110; RESP 18–20; TEMP 36.1–38.8; O2SAT 92–99
[2022-10-31] MEDS: Acetaminophen Supp 650 MG SUPP.RECT PR (00:25)
[2022-10-31] MEDS: Piperacillin Sodium/Tazobactam 4.5 GM in 0.9 % Sodium Chloride 100 ML IV ×4 (03:17→20:41)
[2022-10-31] MEDS: Morphine Sulfate 2 MG/ML CARTRIDGE IVPUSH (04:50)
[2022-10-31] MEDS: Levothyroxine Sodium 100 MCG/5 ML VIAL 50 MCG IVPUSH (04:50)
[2022-10-31 06:31] LABS: Hematocrit 27.8 % (37.0-47.0); Hemoglobin 7.6 g/dl (12.0-16.0); Mean Corpuscular HGB Conc 27.3 g/dl (31.0-35.0); Mean Corpuscular Hemoglobin 29.3 pg (27.0-33.0); Mean Corpuscular Volume 107.3 fL (80.0-98.0); Mean Platelet Volume 12.8 fL (9.4-12.3); Platelet Count 253 X10*3/uL (160-400); Red Blood Count 2.59 X10*6/uL (4.20-5.50); Red Cell Distribution Width 18.2 % (11.0-16.0)
[2022-10-31 06:44] LABS: NRBC Pct Auto 1.1 /100WBC (0.0-0.2)
[2022-10-31 06:45] LABS: White Blood Count 16.9 X10*3/uL (4.8-10.8)
[2022-10-31 06:59] LABS: Anion Gap 16 (12-20); Blood Urea Nitrogen 43 mg/dL (9-16); Calcium 9.6 mg/dL (8.4-10.2); Carbon Dioxide 21 mmol/L (22-29); Chloride 113 mmol/L (96-108); Creatinine Clr Calc Pharmacy 71.9; Estimated Glomerular Filt Rate 58; Glucose Random 117 mg/dL (60-115); Potassium 5.6 mmol/L (3.3-5.1); Sodium 144 mmol/L (135-145)
[2022-10-31 07:26] LABS: Glucose, Whole Blood 116 mg/dL (60-115)
[2022-10-31] MEDS: Famotidine/PF 20 MG/2 ML VIAL IVPUSH (08:59)
[2022-10-31] MEDS: Divalproex Sodium Sprinkles 125 MG CAP.DR.SPR 1000 MG PO ×2 (08:59→22:51)
[2022-10-31] MEDS: Folic Acid 1 MG TABLET PO (09:01)
[2022-10-31] MEDS: Apixaban 2.5 MG TABLET PO ×2 (09:01→22:51)
[2022-10-31] MEDS: QUEtiapine Fumarate 50 MG TABLET PO ×3 (09:01→22:51)
[2022-10-31] MEDS: Zinc Oxide 20% Ointment 28.35 GM TUBE 1 APPL TOPICAL (09:02)
[2022-10-31] MEDS: Albuterol/Iprat 2.5/0.5MG 3 ML AMPUL.NEB INHALE ×3 (09:47→19:53)
[2022-10-31 11:00] LABS: Glucose, Whole Blood 104 mg/dL (60-115)
[2022-10-31] MEDS: Albumin Human 25 % 100 ML 133.33 ML IV ×2 (11:22→12:18)
--- NOTE | 2022-10-31 11:23 | MHC.SPEECHCO ---
Pt too lethargic to participate in PO trials this morning. Per RN, she has not been taking PO for the past few days. [employer] ATTEND[employer] C[employer]IER will continue to follow.
[2022-10-31] MEDS: Sodium Zirconium Cyclosilicate 10 GM POWD.PACK G-TUBE (12:20)
--- NOTE | 2022-10-31 14:26 | P.PNIM_ITS ---
Subjective Subjective Date of Service: 11/01/22 Interval History: fever,possible aspiration pneumonitis? vs atelacatsis Review of Systems looks more awake,making some noises. Physical Exam Vital Signs: Vital Signs: Last Vital Signs Temp 97.0 F 10/31/22 12:00 Pulse 99 10/31/22 12:00 Resp 20 10/31/22 12:00 BP 109/54 L 10/31/22 12:00 Pulse Ox 93 10/31/22 12:00 O2 Del Method Room Air 10/31/22 12:00 O2 Flow Rate 3 10/22/22 07:48 FiO2 21 10/02/22 07:00 BMI result Body Mass Index 32.1 Gen:? Awake, making noises, no resp distress Neck: supple Lungs:? Bilateral coarse breath sound Heart:? Tachy regular rate and rhythm Abd: soft, non-tender, non-distended, PEG in place Ext:? no cyanosis or rash,pulses present Skin: warm/well-perfused, generally edematous in arms, no dicrete rednesss to suggest cellulitis Neuro: alert, nonverbal, moving all extremities Psych: impaired insight Objective Data Active Medications Acetaminophen (Acetaminophen Supp 650 Mg Supp.Rect) 650 mg [place] Q6H PRN PRN Reason: Fever Last Admin: 10/31/22 00:25 Dose: 650 mg Documented By: CAROLIN Apixaban (Apixaban 2.5 Mg Tablet) 2.5 mg PO BID [facility] Last Admin: 10/31/22 09:01 Dose: 2.5 mg Documented By: RINA Heparin Sodium (Porcine) 50 (units/ Sodium Chloride 5 ml) [address] [facility] Last Admin: 10/31/22 09:01 Dose: Not Given Documented By: RINA Non-Admin Reason: no midline Divalproex Sodium (Divalproex Sodium Sprinkles 125 Mg ) 1,000 mg PO BID [facility] Last Admin: 10/31/22 08:59 Dose: 1,000 mg Documented By: RINA Famotidine (Famotidine/Pf 20 Mg/2 Ml Vial) 20 mg IVPUSH DAILY [facility] Last Admin: 10/31/22 08:59 Dose: 20 mg Documented By: RINA Folic Acid (Folic Acid 1 Mg Tablet) 1 mg PO DAILY [facility] Last Admin: 10/31/22 09:01 Dose: 1 mg Documented By: RINA Glucose (Glucose Gel 15 Gm Gel..Gram.) 15 gm PO Q15M PRN; Protocol PRN Reason: per Hypoglycemia Standing Ord. Dextrose (D10) 250 mls @ 750 mls/hr IV Q15M PRN; Protocol PRN Reason: per Hypoglycemia Standing Ord. Piperacillin Sod/Tazobactam (Sod 4.5 gm/ Sodium Chloride) 100 mls @ 200 mls/hr IV Q6H [facility] Last Infusion: 10/31/22 09:42 Dose: 0 mls/hr Documented By: RINA Insulin Human Lispro (Insulin Lispro 100 Unit/Ml 3 Ml Vial) 0 unit SUBCUT QIDACHS [facility]; Protocol Last Admin: 10/31/22 11:27 Dose: Not Given Documented By: RINA Non-Admin Reason: No Insulin Coverage Levothyroxine Sodium (Levothyroxine Sodium 100 Mcg/5 Ml Vial) 50 mcg IVPUSH DAILY@0600 [facility] Last Admin: 10/31/22 04:50 Dose: 50 mcg Documented By: CAROLIN Mirtazapine (Mirtazapine 7.5 Mg Tablet) 7.5 mg PO BEDTIME [facility] Last Admin: 10/30/22 22:31 Dose: 7.5 mg Documented By: CAROLIN Ondansetron HCl (Ondansetron Hcl 4 Mg/2 Ml Vial) 4 mg IVPUSH Q4H PRN PRN Reason: Nausea and Vomiting Last Admin: 10/05/22 14:18 Dose: 4 mg Documented By: MILTON Quetiapine Fumarate (Quetiapine Fumarate 50 Mg Tablet) 50 mg PO TID [facility] Last Admin: 10/31/22 09:01 Dose: 50 mg Documented By: RINA Sodium Bicarbonate (Sodium Bicarbonate 650 Mg Tablet) 650 mg G-TUBE BID [facility] Zinc Oxide (Zinc Oxide 20% Ointment 28.35 Gm Tube) 1 appl TOPICAL BID [facility]; Protocol Last Admin: 10/31/22 09:02 Dose: 1 appl Documented By: RNIA Labs 10/31/22 05:42 10/31/22 05:42 Labs: Laboratory Results - last 24 hr 10/30/22 10/30/22 10/31/22 16:05 20:17 05:42 MCV 107.3 H MCH 29.3 MCHC 27.3 L RDW 18.2 H Plt Count 253 D MPV 12.8 H Absolute Nucleated RBC 0.180 H Nucleated RBC % (auto) 1.1 H Anion Gap Estim Creat Clear Calc Estimated GFR POC Glucose 92 134 H Random Glucose Calcium Blood Type Antibody Screen 10/31/22 10/31/22 10/31/22 05:42 07:22 10:09 MCV MCH MCHC RDW Plt Count MPV Absolute Nucleated RBC Nucleated RBC % (auto) Anion Gap 16 Estim Creat Clear Calc 71.9 Estimated GFR 58 POC Glucose 116 H Random Glucose 117 H Calcium 9.6 Blood Type A Positive Antibody Screen NEGATIVE 10/31/22 10:56 MCV MCH MCHC RDW Plt Count MPV Absolute Nucleated RBC Nucleated RBC % (auto) Anion Gap Estim Creat Clear Calc Estimated GFR POC Glucose 104 Random Glucose Calcium Blood Type Antibody Screen Assessment and Plan (1) Hypernatremia: Status: Acute (2) Pressure injury of left heel, stage 3: Status: Acute Plan ?initially admitted to ICU for pressor support for sepsis due to UTI.? She improved and was discharged from the ICU after 72 hours.? While awaiting to be discharged earlier, she vomitted and developped acute hypoix respiratory failure due to aspiration pneumonia and this raised safety about her PO intake ability and as such, she was started on TPN and? decision was made and agreed upon by her guargian to have a feeding tube to maintain her nutrition and minimize aspiration risk. A feeding tube placement was delayed? until an ICU bed could be secured in the event that she needed to be intubated after the procedure, giving her extremely high risk.? Ultimately the PEG was inserted withough need for ICU admission and she is tolerating tube at maxim rate of 70 recommended by nutrition. Additionally over the coure of time, she has continuously been? followed by [facility] therapy and gained the ability to eat Puree food? with [place] thic liquid. ? 1. Aspiration pneumonitis/ recurrent? aspiration with sepsis, initally treated with ICU as above. Treated with nearly 3 weeks of IV antibiotics, initally 10 days of, then developped repeat aspiration and treated for another week. She is no longer hypoxic, no fever, and WBC is within normal. Strick aspiration precaution to be taking. Acute hypoxic respiratory failure has resolved.? yesterday seems more weak and had fevers : WBC uptrendin, tachycardia, no fever. High Sodium , high K cxr-: linear atelactasis last fever episode -midnight yesterday 100.9*f blood culture pending ,?zosyn started emperic yesterday possible ?asp pneumonitis , hydration added res panel incentive sprio,chest physio,head elevation, nebs hyperkalemia -given loklema id evaluation noted -we willstop antibiotics , if keep spiking fever may need further workup. 2. Hypernatremia: resolved with hydration. 4. Pulmonary embolism (by history) on Eliquis , while awaiting surgery was changed to Levenox and after the procedure was changed back to Elquis at her usual dose. 5. Schizoaffective disorder -continue home medications Depakote, Seroquel and mirtazepine? at bedtime 6. Acute on chronic macrocytic anemia status post 2 units of packed RBC hematocrit improved but dropped today to 27.2, no active bleeding noted, normal? B12, low folate ?? Continue folic acid 1 mg daily , will add iv folate h/h slowly smoldering down , no gross bleedin we will give 1 prbc repeat h/h in am 7. Dysphagia seen by speech therapy--She as on PPN and was followed closely by speech and ultimately improved and was? started puree diet with honey thick liquid, additionally she is to get nutrition through PEG with promote at max goal of 70 ml /hr with 240 free water shoshes q6 hours 8. UTI(multpile organisms) -completed course of antibiotics. 9. Hypothyroidism continue levothyroxine 10. Fluid overload--treate with HCTZ and improve. 11: multiple wounds: please see hospitalist not from 10/19/22 continue wound care ,jennifer perkins, added surgery eval for left heel ulcer (seems skin peeling) 12. hypernatremia : ? mild dehydration add free water 250 ml q6hr via gtube added 50 cc d5w -recheck bmp in am. ongoing inpatient stay need:heel pressure ulcer area -need surgrey eval,anemia- need transfusion, hyponatremia-need iv fluids. Time Spent With Patient Time: Total time managing care of this patient today ____ minutes. Quality Stroke Does the patient have a stroke diagnosis?: No VTE Prior VTE?: No VTE Risk Level:: Medical - moderate - high VTE Device Contraindication: N/A - Device Ordered VTE Drug Contraindication: N/A - Med Ordered
--- NOTE | 2022-10-31 15:53 | HO.WOUND ---
Wound Care Consult Reason for consult: Right foot ulcer Patient has a wound on the right medial heel. Wound was open to air at the time of consult. Wound bed appearance was dry intact eschar. Wound edges were attached and well defined. No undermining or tunneling. Surrounding tissue temperature was warm to touch. No drainage noted. No odor. Periwound appearance was dry and callused. Wound measured 0.9cm x 2.7cm x 0.1cm. Wound was cleansed with [employer] wound cleanser. Wound bed was painted with betadine and covered with gauze and jazmine wrap. Did mention to patient the importance of keeping pressure off the area, even though pressure does not seem like the cause of this injury. Recommendation: Would recommend painting wound with betadine daily to keep dry and clean. Cover with gauze and jazmine wrap to help pad and protect area.
--- NOTE | 2022-10-31 15:56 | W.PM.IDCN ---
History of Present Illness Data of Consult Service Date: 10/31/22 Requesting physician: Karen Smith Primary Care Provider: Ondina Sewell MD HPI Reason for consult: fever and leukocytosis [facility]y and found to have hypotension and fever . She was admitted and thought to have aspiration pneumonia. She received IV piperacillin/tazobactam and did have defervescence. She was going to get discharged and then developed fever to 101 yesterday and started back on Zosyn Review of Systems Review of Systems: Yes Unobtainable due to mental status [facility] Past Medical History Medical History (Updated 10/31/22 @ 15:59 by Samira Rodriguez MD) Chronic kidney disease, stage 3 COVID Dysphagia Fever of unknown origin Hx of assisted use of blood thinners Hypertension Intellectual disability Pressure sore on ankle Pulmonary embolism Schizoaffective disorder Family History Family history: reviewed and not pertinent Social History Social History Household Members: Unknown / Unable to assess Housing: Unknown / Unable to assess Unable to assess alcohol history related to: Unable to respond Patient Tobacco Use Status: Tobacco use Unknown Use of substances other than those prescribed or required for medical reasons: Unknown Currently Displaying Signs/Symptoms of Drug Intoxication Withdrawal: No Are you DNR?: No Advance Directives: No Advance Directives Information Provided: No Recently lost weight without trying: Unsure Patient : No service: No Current occupational status: disabled Meds Allergies Allergy/AdvReac Type Severity Reaction Status Date / Time Unable to Assess Allergy Verified 01/02/22 11:20 Active Medications: Current Medications Acetaminophen (Acetaminophen Supp 650 Mg Supp.Rect) 650 mg [place] Q6H PRN PRN Reason: Fever Last Admin: 10/31/22 00:25 Dose: 650 mg Albuterol/Ipratropium (Albuterol/Iprat 2.5/0.5mg 3 Ml Ampul.Neb) 3 ml INHALE RQ4H WHILE AWAKE [facility] Last Admin: 10/31/22 15:47 Dose: 3 ml Apixaban (Apixaban 2.5 Mg Tablet) 2.5 mg PO BID [facility] Last Admin: 10/31/22 09:01 Dose: 2.5 mg Heparin Sodium (Porcine) 50 (units/ Sodium Chloride 5 ml) 0 units IVFLUSH QSHIFT [facility] Last Admin: 10/31/22 09:01 Dose: Not Given Divalproex Sodium (Divalproex Sodium Sprinkles 125 Mg ) 1,000 mg PO BID [facility] Last Admin: 10/31/22 08:59 Dose: 1,000 mg Famotidine (Famotidine/Pf 20 Mg/2 Ml Vial) 20 mg IVPUSH DAILY [facility] Last Admin: 10/31/22 08:59 Dose: 20 mg Folic Acid (Folic Acid 1 Mg Tablet) 1 mg PO DAILY [facility] Last Admin: 10/31/22 09:01 Dose: 1 mg Glucose (Glucose Gel 15 Gm Gel..Gram.) 15 gm PO Q15M PRN; Protocol PRN Reason: per Hypoglycemia Standing Ord. Dextrose (D10) 250 mls @ 750 mls/hr IV Q15M PRN; Protocol PRN Reason: per Hypoglycemia Standing Ord. Piperacillin Sod/Tazobactam (Sod 4.5 gm/ Sodium Chloride) 100 mls @ 200 mls/hr IV Q6H [facility] Last Admin: 10/31/22 14:41 Dose: 200 mls/hr Insulin Human Lispro (Insulin Lispro 100 Unit/Ml 3 Ml Vial) 0 unit SUBCUT QIDACHS [facility]; Protocol Last Admin: 10/31/22 11:27 Dose: Not Given Levothyroxine Sodium (Levothyroxine Sodium 100 Mcg/5 Ml Vial) 50 mcg IVPUSH DAILY@0600 [facility] Last Admin: 10/31/22 04:50 Dose: 50 mcg Mirtazapine (Mirtazapine 7.5 Mg Tablet) 7.5 mg PO BEDTIME [facility] Last Admin: 10/30/22 22:31 Dose: 7.5 mg Ondansetron HCl (Ondansetron Hcl 4 Mg/2 Ml Vial) 4 mg IVPUSH Q4H PRN PRN Reason: Nausea and Vomiting Last Admin: 10/05/22 14:18 Dose: 4 mg Quetiapine Fumarate (Quetiapine Fumarate 50 Mg Tablet) 50 mg PO TID [facility] Last Admin: 10/31/22 14:41 Dose: 50 mg Sodium Bicarbonate (Sodium Bicarbonate 650 Mg Tablet) 650 mg G-TUBE BID [facility] Zinc Oxide (Zinc Oxide 20% Ointment 28.35 Gm Tube) 1 appl TOPICAL BID [facility]; Protocol Last Admin: 10/31/22 09:02 Dose: 1 appl Home Medications Medication Instructions Recorded Confirmed Last Taken Type acetaminophen 500 mg tablet 1,000 mg PO TID PRN Pain 01/02/22 09/29/22 Unknown History apixaban 2.5 mg tablet (Eliquis) 2.5 mg PO BID 01/02/22 09/29/22 Unknown History atorvastatin 10 mg tablet 10 mg PO BEDTIME 01/02/22 09/29/22 Unknown History divalproex 125 mg capsule,delayed 1,000 mg PO BID 01/02/22 09/29/22 Unknown History release sprinkle lactulose 10 gram/15 mL oral 20 g PO BID 01/02/22 09/29/22 Unknown History solution (Enulose) levothyroxine 100 mcg capsule 100 mcg PO DAILY 01/02/22 09/29/22 Unknown History mirtazapine 7.5 mg tablet 7.5 mg PO BEDTIME 01/02/22 09/29/22 Unknown History quetiapine 50 mg tablet 50 mg PO TID 01/02/22 09/29/22 Unknown History trazodone 100 mg tablet 200 mg PO BID 01/02/22 09/29/22 Unknown History ascorbic acid (vitamin C) 1,000 mg 1,000 mg PO BID 09/29/22 09/29/22 Unknown History tablet (Vitamin C) ascorbic acid (vitamin C) 250 mg 250 mg PO BID 09/29/22 09/29/22 Unknown History tablet (Vitamin C) bisacodyl 10 mg rectal suppository 10 mg MO DAILY PRN Constipation 09/29/22 09/29/22 Unknown History tramadol 50 mg tablet 50 mg PO BID PRN Pain 09/29/22 09/29/22 Unknown History Physical Exam Vital Signs: Vital Signs: Last Vital Signs Temp 98.2 F 10/31/22 15:36 Pulse 107 H 10/31/22 15:36 Resp 19 10/31/22 15:36 BP 99/52 L 10/31/22 15:36 Pulse Ox 92 10/31/22 15:36 O2 Del Method Room Air 10/31/22 15:36 O2 Flow Rate 3 10/22/22 07:48 FiO2 21 10/02/22 07:00 BMI result Body Mass Index 32.1 Const: General: cooperative HEENT: Head: Yes normal to inspection Face and sinus: Yes normal facial exam Mouth: Normal oral and palatal mucosa present Teeth and gingiva: dentition normal Eyes: General: appearance normal, both eyes and all related structures Pupils: Equal, round and reactive pupils present Resp: Effort & Inspection: normal respiratory effort Cardio: Rate: regular rate Rhythm: regular rhythm GI: Palpation (GI): Soft to palpation and nontender : General: Yes no CVA tenderness Back/Spine/Pelvis: Back: no CVA tenderness Skin: General skin exam: no rashes or lesions noted Neuro: General: moves all extremities Cranial nerves: Yes Equal, round and reactive pupils present Extrem: General: Yes normal to inspection Psych: Other: not verbal chronically Results Labs 10/31/22 05:42 10/31/22 05:42 Labs: Short CBC 10/31/22 Range/Units 05:42 WBC 16.9 H (4.8-10.8) X10*3/uL Hgb 7.6 L (12.0-16.0) g/dl Hct 27.8 L (37.0-47.0) % Plt Count 253 D (160-400) X10*3/uL BMP 10/31/22 05:42 Sodium 144 Potassium 5.6 H Chloride 113 H Carbon Dioxide 21 L BUN 43 H Creatinine 0.97 Calcium 9.6 Microbiology Microbiology Results: Microbiology 10/01/22 18:06 Blood - Venous Blood Culture - Final No growth after 5 days. 10/01/22 18:06 Blood - Venous Blood Culture - Final No growth after 5 days. 09/29/22 23:00 Heel, Left Gram Stain - Final 09/29/22 23:00 Heel, Left Routine Culture - Final Proteus mirabilis Methicillin Res Staph Aureus 09/29/22 14:08 Blood - Venous Blood Culture - Final No growth after 5 days. 09/29/22 14:08 Blood - Venous Blood Culture - Final Coag negative Staphylococcus Peptostreptococcus species 09/29/22 23:55 Sputum - Suctioned Gram Stain - Final 09/29/22 23:55 Sputum - Suctioned Sputum Culture - Final 09/29/22 Unknown Urine Catheterized - Randall Catheter Urine Culture - Final Assessment and Plan (1) Fever of unknown origin: Status: Acute She has had repeat antibiotic treatment for suspected bacterial aspiration pneumonia. There is no diarrhea or rash. She is not able to express self. (2) Schizoaffective disorder: Status: Acute Plan Await blood cultures and stop antibiotics if blood culture negative tomorrow. Check for PE and recheck LFTs Time Spent With Patient Time: Total time managing care of this patient today ____ minutes.
[2022-10-31 16:12] LABS: Glucose, Whole Blood 80 mg/dL (60-115)
[2022-10-31 20:51] LABS: Glucose, Whole Blood 126 mg/dL (60-115)
[2022-10-31] MEDS: Mirtazapine 7.5 MG TABLET PO (22:51)
[2022-10-31] MEDS: Sodium Bicarbonate 650 MG TABLET G-TUBE (22:51)
[2022-11-01] VITALS (13 sets, daily range): BP systolic 89–121; BP diastolic 47–56; PULSE 93–103; RESP 16–20; TEMP 36.1–37.1; O2SAT 92–96
[2022-11-01] MEDS: Piperacillin Sodium/Tazobactam 4.5 GM in 0.9 % Sodium Chloride 100 ML IV ×3 (02:49→16:53)
[2022-11-01] MEDS: Levothyroxine Sodium 100 MCG/5 ML VIAL 50 MCG IVPUSH (06:38)
[2022-11-01 07:39] LABS: Glucose, Whole Blood 116 mg/dL (60-115)
[2022-11-01] MEDS: Famotidine/PF 20 MG/2 ML VIAL IVPUSH (08:53)
[2022-11-01] MEDS: Sodium Bicarbonate 650 MG TABLET G-TUBE ×2 (08:56→20:03)
[2022-11-01] MEDS: Divalproex Sodium Sprinkles 125 MG CAP.DR.SPR 1000 MG PO ×2 (08:56→20:03)
[2022-11-01] MEDS: Folic Acid 1 MG TABLET PO (08:56)
[2022-11-01] MEDS: QUEtiapine Fumarate 50 MG TABLET PO ×3 (08:56→20:03)
[2022-11-01] MEDS: Apixaban 2.5 MG TABLET PO ×2 (08:56→20:03)
[2022-11-01] MEDS: Zinc Oxide 20% Ointment 28.35 GM TUBE 1 APPL TOPICAL ×2 (08:57→20:21)
[2022-11-01 09:29] LABS: Hematocrit 24.2 % (37.0-47.0); Mean Corpuscular HGB Conc 28.5 g/dl (31.0-35.0); Mean Corpuscular Hemoglobin 29.9 pg (27.0-33.0); Mean Corpuscular Volume 104.8 fL (80.0-98.0); Mean Platelet Volume 11.8 fL (9.4-12.3); Platelet Count 291 X10*3/uL (160-400); Red Blood Count 2.31 X10*6/uL (4.20-5.50); Red Cell Distribution Width 17.9 % (11.0-16.0); White Blood Count 15.5 X10*3/uL (4.8-10.8)
[2022-11-01 09:47] LABS: Hemoglobin 6.9 g/dl (12.0-16.0)
[2022-11-01 09:55] LABS: Anion Gap 11 (12-20); Blood Urea Nitrogen 39 mg/dL (9-16); Calcium 10.1 mg/dL (8.4-10.2); Carbon Dioxide 31 mmol/L (22-29); Chloride 110 mmol/L (96-108); Creatinine Clr Calc Pharmacy 66.4; Estimated Glomerular Filt Rate 53; Glucose Random 109 mg/dL (60-115); Potassium 4.8 mmol/L (3.3-5.1); Sodium 147 mmol/L (135-145)
--- NOTE | 2022-11-01 10:24 | MHC.CLN ---
F/U PATIENT TOLERATING TUBE FEEDING AT MAX GOAL RATE PROMOTE AT 70ML/HR WITH 240ML FREE WATER FLUSHES Q 6HRS PROVIDES 1680KCALS (23KCALS/KG), 105G PROTEIN (1.4G/KG), 2369ML TOTAL WATER FROM FORMULA AND FLUSHES (32ML/KG) TF WITH HIGHER PROTEIN TO PROMOTE WOUND HEALING ALSO HAS DIET ORDER, PER [employer] TECHNICIAN, DIET IS PUREED WITH NECTAR THICK LIQUIDS MONITOR TOLERANCE, RESIDUALS AND LYTES
[2022-11-01] MEDS: Albuterol/Iprat 2.5/0.5MG 3 ML AMPUL.NEB INHALE ×3 (10:49→19:28)
--- NOTE | 2022-11-01 11:05 | MHC.SLORD ---
Speech Language Pathology Order Status: ROCK WOOL INSULATOR attempted to see pt for oral care & PO (NDD1 and NT liquids via tsp). Pt did not awake for MD or ROCK WOOL INSULATOR. ROCK WOOL INSULATOR to attempt later in day if time allows.
[2022-11-01 11:31] LABS: Glucose, Whole Blood 103 mg/dL (60-115)
--- NOTE | 2022-11-01 14:41 | MHC.CM.PN ---
EMR REVIEWED, PER HOSPITALIST PT NOT READY FOR D/C, HB 6.9 AND PLAN TO TRANSFUSE, BC'S PENDING, NO PLAN FOR D/C, [facility] UPDATED AND CM WILL CONT TO FOLLOW D/C NEEDS.
[2022-11-01 16:47] LABS: Glucose, Whole Blood 92 mg/dL (60-115)
[2022-11-01] MEDS: Dextrose 5 % 1,000 ML 50 ML IVCONT (16:53)
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
[2022-11-01] MEDS: Albumin Human 25 % 100 ML IV ×2 (17:10→22:07)
[2022-11-01] MEDS: Mirtazapine 7.5 MG TABLET PO (20:03)
[2022-11-01 20:04] LABS: Glucose, Whole Blood 113 mg/dL (60-115)
[2022-11-02] VITALS (11 sets, daily range): BP systolic 104–132; BP diastolic 50–68; PULSE 92–110; RESP 15–20; TEMP 36.2–37.2; O2SAT 89–99
[2022-11-02] MEDS: Piperacillin Sodium/Tazobactam 4.5 GM in 0.9 % Sodium Chloride 100 ML IV ×3 (00:01→11:51)
[2022-11-02] MEDS: Albumin Human 25 % 100 ML IV ×2 (04:31→09:49)
[2022-11-02] MEDS: Levothyroxine Sodium 100 MCG/5 ML VIAL 50 MCG IVPUSH (05:01)
--- NOTE | 2022-11-02 05:54 | PC.NURSE ---
Wound care and dressing done to coccyx and right buttocks area.
[2022-11-02 07:22] LABS: Glucose, Whole Blood 107 mg/dL (60-115)
[2022-11-02] MEDS: Albuterol/Iprat 2.5/0.5MG 3 ML AMPUL.NEB INHALE ×3 (07:32→15:00)
[2022-11-02 08:48] LABS: Hematocrit 30.5 % (37.0-47.0)
[2022-11-02 09:03] LABS: Anion Gap 18 (12-20); Blood Urea Nitrogen 35 mg/dL (9-16); Calcium 10.5 mg/dL (8.4-10.2); Carbon Dioxide 25 mmol/L (22-29); Chloride 108 mmol/L (96-108); Creatinine Clr Calc Pharmacy 67.1; Estimated Glomerular Filt Rate 54; Glucose Random 116 mg/dL (60-115); Potassium 5.2 mmol/L (3.3-5.1); Sodium 146 mmol/L (135-145)
[2022-11-02] MEDS: Famotidine/PF 20 MG/2 ML VIAL IVPUSH (09:49)
[2022-11-02] MEDS: Folic Acid 1 MG TABLET PO (09:50)
[2022-11-02] MEDS: Sodium Bicarbonate 650 MG TABLET G-TUBE ×2 (09:50→20:16)
[2022-11-02] MEDS: Sodium Zirconium Cyclosilicate 10 GM POWD.PACK G-TUBE (09:50)
[2022-11-02] MEDS: Apixaban 2.5 MG TABLET PO ×2 (09:50→20:16)
[2022-11-02] MEDS: Divalproex Sodium Sprinkles 125 MG CAP.DR.SPR 1000 MG PO ×2 (09:50→20:16)
[2022-11-02] MEDS: QUEtiapine Fumarate 50 MG TABLET PO ×3 (09:50→20:16)
[2022-11-02 11:27] LABS: Glucose, Whole Blood 84 mg/dL (60-115)
[2022-11-02 12:09] LABS: Adenovirus PCR Not Detected (Not Detect.); Bordetella parapertussis PCR Not Detected (Not Detect.); Bordetella pertussis PCR Not Detected (Not Detect.); Chlamydia pneumoniae PCR Not Detected (Not Detect.); Coronavirus 229E PCR Detected (Not Detect.); Coronavirus HKU1 PCR Not Detected (Not Detect.); Coronavirus NL63 PCR Not Detected (Not Detect.); Coronavirus OC43 PCR Not Detected (Not Detect.); Human metapneumovirus PCR Not Detected (Not Detect.); Influenza A PCR Not Detected (Not Detect.); Influenza B PCR Not Detected (Not Detect.); Mycoplasma pneumoniae PCR Not Detected (Not Detect.); Parainfluenza 1 PCR Not Detected (Not Detect.); Parainfluenza 2 PCR Not Detected (Not Detect.); Parainfluenza 3 PCR Not Detected (Not Detect.); Parainfluenza 4 PCR Not Detected (Not Detect.); RSV PCR Not Detected (Not Detect.); Rhino/Enterovirus PCR Not Detected (Not Detect.); SARS-CoV-2 PCR Not Detected (Not Detect.)
--- NOTE | 2022-11-02 13:59 | MHC.SLORD ---
Speech Language Pathology Order Status: Attempted to see Pt X2 today for oral care, po trials. In AM, pt sleeping and on nebulizer, attempt in PM met with closed mouth/refusal. CHIEF OF PARTY will continue to follow.
[2022-11-02 16:00] LABS: Glucose, Whole Blood 104 mg/dL (60-115)
--- NOTE | 2022-11-02 16:19 | P.PNIM_ITS ---
Subjective Subjective Date of Service: 11/03/22 Interval History: anemia , hyponatremia, hypokalemia Left heel ulcer Review of Systems No new events, no fever overnight Physical Exam Vital Signs: Vital Signs: Last Vital Signs Temp 98.1 F 11/02/22 15:35 Pulse 110 H 11/02/22 15:35 Resp 15 11/02/22 15:35 BP 131/56 L 11/02/22 15:35 Pulse Ox 97 11/02/22 15:35 O2 Del Method Room Air 11/02/22 15:35 O2 Flow Rate 3 10/22/22 07:48 FiO2 21 10/02/22 07:00 BMI result Body Mass Index 32.1 Gen:? Awake, no resp distress Neck: supple Lungs:? Bilateral coarse breath sound Heart:? Tachy regular rate and rhythm Abd: soft, non-tender, non-distended, PEG in place Ext:? no cyanosis or rash,pulses present Skin: warm/well-perfused, generally edematous in arms. Neuro: alert, nonverbal, moving all extremities Psych: impaired insight Objective Data Active Medications Acetaminophen (Acetaminophen Supp 650 Mg Supp.Rect) 650 mg NC Q6H PRN PRN Reason: Fever Last Admin: 10/31/22 00:25 Dose: 650 mg Documented By: CAROLIN Albuterol/Ipratropium (Albuterol/Iprat 2.5/0.5mg 3 Ml Ampul.Neb) 3 ml INHALE RQ4H WHILE AWAKE [facility] Last Admin: 11/02/22 15:00 Dose: 3 ml Documented By: RANJITH Apixaban (Apixaban 2.5 Mg Tablet) 2.5 mg PO BID [facility] Last Admin: 11/02/22 09:50 Dose: 2.5 mg Documented By: ERICKSON Heparin Sodium (Porcine) 50 (units/ Sodium Chloride 5 ml) 0 units IVFLUSH QSHIFT [facility] Last Admin: 11/02/22 16:04 Dose: Not Given Documented By: ERICKSON Non-Admin Reason: no central line access Divalproex Sodium (Divalproex Sodium Sprinkles 125 Mg ) 1,000 mg PO BID [facility] Last Admin: 11/02/22 09:50 Dose: 1,000 mg Documented By: ERICKSON Famotidine (Famotidine/Pf 20 Mg/2 Ml Vial) 20 mg IVPUSH DAILY [facility] Last Admin: 11/02/22 09:49 Dose: 20 mg Documented By: ERICKSON Folic Acid (Folic Acid 1 Mg Tablet) 1 mg PO DAILY [facility] Last Admin: 11/02/22 09:50 Dose: 1 mg Documented By: ERICKSON Glucose (Glucose Gel 15 Gm Gel..Gram.) 15 gm PO Q15M PRN; Protocol PRN Reason: per Hypoglycemia Standing Ord. Dextrose (D10) 250 mls @ 750 mls/hr IV Q15M PRN; Protocol PRN Reason: per Hypoglycemia Standing Ord. Piperacillin Sod/Tazobactam (Sod 4.5 gm/ Sodium Chloride) 100 mls @ 200 mls/hr IV Q6H [facility] Last Infusion: 11/02/22 13:08 Dose: 0 mls/hr Documented By: ERICKSON Insulin Human Lispro (Insulin Lispro 100 Unit/Ml 3 Ml Vial) 0 unit SUBCUT QIDACHS [facility]; Protocol Last Admin: 11/02/22 15:57 Dose: Not Given Documented By: ERICKSON Non-Admin Reason: No Insulin Coverage Levothyroxine Sodium (Levothyroxine Sodium 100 Mcg/5 Ml Vial) 50 mcg IVPUSH DAILY@0600 [facility] Last Admin: 11/02/22 05:01 Dose: 50 mcg Documented By: PRASANTH Mirtazapine (Mirtazapine 7.5 Mg Tablet) 7.5 mg PO BEDTIME [facility] Last Admin: 11/01/22 20:03 Dose: 7.5 mg Documented By: PRASANTH Ondansetron HCl (Ondansetron Hcl 4 Mg/2 Ml Vial) 4 mg IVPUSH Q4H PRN PRN Reason: Nausea and Vomiting Last Admin: 10/05/22 14:18 Dose: 4 mg Documented By: MILTON Quetiapine Fumarate (Quetiapine Fumarate 50 Mg Tablet) 50 mg PO TID [facility] Last Admin: 11/02/22 15:53 Dose: 50 mg Documented By: ERICKSON Sodium Bicarbonate (Sodium Bicarbonate 650 Mg Tablet) 650 mg G-TUBE BID [facility] Last Admin: 11/02/22 09:50 Dose: 650 mg Documented By: ERICKSON Zinc Oxide (Zinc Oxide 20% Ointment 28.35 Gm Tube) 1 appl TOPICAL BID [facility]; Protocol Last Admin: 11/02/22 10:29 Dose: Not Given Documented By: ERICKSON Non-Admin Reason: WOUND DGS CHANGE DUE TOMORROW Labs 11/02/22 08:33 11/02/22 08:33 Labs: Laboratory Results - last 24 hr 11/01/22 11/01/22 11/02/22 16:38 19:54 07:04 Anion Gap Estim Creat Clear Calc Estimated GFR POC Glucose 92 113 107 Random Glucose Calcium Respiratory Panel Dean Adenovirus (Rapid PCR) B.pert (TEM-PCR) B.parapertussis DNA PCR C. pneumoniae DNA (PCR) Coronavirus OC43 (PCR) Coronavirus HKU1 (PCR) Coronavirus 229E (PCR) Coronavirus NL63 (PCR) Human Metapneumovir PCR Influenza A (RT-PCR) Influenza B (RT-PCR) M. pneumoniae (PCR) Parainfluenza 1 (PCR) Parainfluenza 2 (PCR) Parainfluenza 3 (PCR) Parainfluenza 4 (PCR) RSV (PCR) Entero/Rhino (PCR) SARS-CoV-2 RNA (RT-PCR) 11/02/22 11/02/22 11/02/22 08:33 10:30 11:18 Anion Gap 18 Estim Creat Clear Calc 67.1 Estimated GFR 54 POC Glucose 84 Random Glucose 116 H Calcium 10.5 H Respiratory Panel Dean See Note Adenovirus (Rapid PCR) Not Detected B.pert (TEM-PCR) Not Detected B.parapertussis DNA PCR Not Detected C. pneumoniae DNA (PCR) Not Detected Coronavirus OC43 (PCR) Not Detected Coronavirus HKU1 (PCR) Not Detected Coronavirus 229E (PCR) Detected A Coronavirus NL63 (PCR) Not Detected Human Metapneumovir PCR Not Detected Influenza A (RT-PCR) Not Detected Influenza B (RT-PCR) Not Detected M. pneumoniae (PCR) Not Detected Parainfluenza 1 (PCR) Not Detected Parainfluenza 2 (PCR) Not Detected Parainfluenza 3 (PCR) Not Detected Parainfluenza 4 (PCR) Not Detected RSV (PCR) Not Detected Entero/Rhino (PCR) Not Detected SARS-CoV-2 RNA (RT-PCR) Not Detected 11/02/22 15:56 Anion Gap Estim Creat Clear Calc Estimated GFR POC Glucose 104 Random Glucose Calcium Respiratory Panel Dean Adenovirus (Rapid PCR) B.pert (TEM-PCR) B.parapertussis DNA PCR C. pneumoniae DNA (PCR) Coronavirus OC43 (PCR) Coronavirus HKU1 (PCR) Coronavirus 229E (PCR) Coronavirus NL63 (PCR) Human Metapneumovir PCR Influenza A (RT-PCR) Influenza B (RT-PCR) M. pneumoniae (PCR) Parainfluenza 1 (PCR) Parainfluenza 2 (PCR) Parainfluenza 3 (PCR) Parainfluenza 4 (PCR) RSV (PCR) Entero/Rhino (PCR) SARS-CoV-2 RNA (RT-PCR) Microbiology Microbiology Results: Microbiology 10/30/22 14:18 Blood Culture - Preliminary Blood - Venous No growth after 48 hours. 10/30/22 14:18 Blood Culture - Preliminary Blood - Venous No growth after 48 hours. Assessment and Plan (1) Hypernatremia: Status: Acute (2) Pressure injury of left heel, stage 3: Status: Acute Plan ?initially admitted to ICU for pressor support for sepsis due to UTI.? She improved and was discharged from the ICU after 72 hours.? While awaiting to be discharged earlier, she vomitted and developped acute hypoix respiratory failure due to aspiration pneumonia and this raised safety about her PO intake ability and as such, she was started on TPN and? decision was made and agreed upon by her guargian to have a feeding tube to maintain her nutrition and minimize aspir ation risk. A feeding tube placement was delayed? until an ICU bed could be secured in the event that she needed to be intubated after the procedure, giving her extremely high risk.? Ultimately the PEG was inserted withough need for ICU admission and she is tolerating tube at maxim rate of 70 recommended by nutrition. Additionally over the coure of time, she has continuously been? followed by [facility] therapy and gained the ability to eat Puree food? with [place] thic liquid. ? 1. Aspiration pneumonitis/ recurrent? aspiration with sepsis, initally treated with ICU as above. Treated with nearly 3 weeks of IV antibiotics, initally 10 days of, then developped repeat aspiration and treated for another week. She is no longer hypoxic, no fever, and WBC is within normal. Strick aspiration precaution to be taking. Acute hypoxic respiratory failure has resolved.? yesterday seems more weak and had fevers : WBC uptrendin, tachycardia, no fever. High Sodium , high K cxr-: linear atelactasis added res panel-positive rhodes? incentive sprio,chest physio,head elevation, nebs hyperkalemia -given loklema id evaluation noted -we willstop antibiotics , blood culture neg 48hrs .if fevers again may need further workup.may be need Id follow up due to cornoa positive 2. Hypernatremia:continue g-tube free water 4. Pulmonary embolism (by history) on Eliquis , while awaiting surgery was ch anged to Levenox and after the procedure was changed back to Elquis at her usual dose. 5. Schizoaffective disorder -continue home medications Depakote, Seroquel and mirtazepine? at bedtime 6. Acute on chronic macrocytic anemia status post 2 units of packed RBC hematocrit improved but dropped today to 27.2, no active bleeding noted, normal? B12, low folate ?? Continue folic acid 1 mg daily , will add iv folate h/h slowly smoldering down , no gross bleedin we will give 1 prbc repeat h/h -around 9. 7. Dysphagia seen by speech therapy--She as on PPN and was followed closely by speech and ultimately improved and was? started puree diet with honey thick liquid, additionally she is to get nutrition through PEG with promote at max goal of 70 ml /hr with 240 free water shoshes q6 hours 8. UTI(multpile organisms) -completed course of antibiotics. 9. Hypothyroidism continue levothyroxine 10. Fluid overload--treate with HCTZ and improve. 11: multiple wounds: please see hospitalist not from 10/19/22 continue wound care ,jennifer perkins, added surgery eval for left heel ulcer (seems skin peeling)?-Wound was examined by surgery today and callus easily removed.? The base of the wound is granulating with no evidence of necrotic tissue or underlying abscess.? Recommend continuing silver alginate and dry sterile dressings.? Keep all pressure off heels 12. hypernatremia : ? mild dehydration add free water 250 ml q6hr via gtube hyperkalemia-added lokelma via gtube. ongoing inpatient stay need:heel pressure ulcer area -need surgrey eval,hyponatremia-need iv fluids. Time Spent With Patient Time: Total time managing care of this patient today ____ minutes. Quality Stroke Does the patient have a stroke diagnosis?: No VTE Prior VTE?: No VTE Risk Level:: Medical - moderate - high VTE Device Contraindication: N/A - Device Ordered VTE Drug Contraindication: N/A - Med Ordered
[2022-11-02 19:54] LABS: Glucose, Whole Blood 66 mg/dL (60-115)
[2022-11-02] MEDS: Dextrose 10 % 250 ML 750 ML IV (20:16)
[2022-11-02] MEDS: Mirtazapine 7.5 MG TABLET PO (20:16)
[2022-11-02 21:10] LABS: Glucose, Whole Blood 137 mg/dL (60-115)
[2022-11-03] VITALS (11 sets, daily range): BP systolic 98–135; BP diastolic 52–61; PULSE 96–111; RESP 18–20; TEMP 36.2–38.2; O2SAT 91–100
[2022-11-03] MEDS: Levothyroxine Sodium 100 MCG/5 ML VIAL 50 MCG IVPUSH (04:28)
[2022-11-03] MEDS: Albuterol/Iprat 2.5/0.5MG 3 ML AMPUL.NEB INHALE ×4 (07:27→19:55)
[2022-11-03 07:55] LABS: Glucose, Whole Blood 74 mg/dL (60-115)
[2022-11-03 09:08] LABS: Adenovirus F 40/41 Not Detected (Not Detect.); Astrovirus Not Detected (Not Detect.); Campylobacter Not Detected (Not Detect.); Cryptosporidium Not Detected (Not Detect.); Cyclospora cayetanensis Not Detected (Not Detect.); E. coli EAEC Not Detected (Not Detect.); E. coli EPEC Not Detected (Not Detect.); E. coli ETEC Not Detected (Not Detect.); E. coli STEC Not Detected (Not Detect.); Entamoeba histolytica Not Detected (Not Detect.); Giardia lamblia Not Detected (Not Detect.); Norovirus GI/GII Not Detected (Not Detect.); Plesiomonas shigelloides Not Detected (Not Detect.); Rotavirus A Not Detected (Not Detect.); Salmonella Not Detected (Not Detect.); Sapovirus Not Detected (Not Detect.); Shigella sp./EIEC Not Detected (Not Detect.); Vibrio Not Detected (Not Detect.); Vibrio Cholerae Not Detected (Not Detect.); Yersinia enterocolitica Not Detected (Not Detect.)
[2022-11-03] MEDS: Divalproex Sodium Sprinkles 125 MG CAP.DR.SPR 1000 MG G-TUBE ×2 (09:45→22:32)
[2022-11-03] MEDS: Sodium Bicarbonate 650 MG TABLET G-TUBE ×2 (09:45→22:33)
[2022-11-03] MEDS: QUEtiapine Fumarate 50 MG TABLET G-TUBE ×3 (09:45→22:33)
[2022-11-03] MEDS: Folic Acid 1 MG in 0.9 % Sodium Chloride 50 ML 100.4 MG IV (09:46)
[2022-11-03] MEDS: Folic Acid 1 MG TABLET PO (09:46)
[2022-11-03] MEDS: Apixaban 2.5 MG TABLET G-TUBE ×2 (09:46→22:33)
[2022-11-03] MEDS: Albumin Human 25 % 100 ML IV ×2 (09:47→11:46)
[2022-11-03] MEDS: Famotidine/PF 20 MG/2 ML VIAL IVPUSH (09:47)
[2022-11-03] MEDS: Zinc Oxide 20% Ointment 28.35 GM TUBE 1 APPL TOPICAL ×2 (09:48→22:31)
--- NOTE | 2022-11-03 10:42 | MHC.SL.SWA ---
Speech Pathologist Impression: Oropharyngeal dysphagia; Aspiration on thin liquids- Refer to MBSS report Risk of Aspiration Due to: History of Pneumonia Reduced Cognition Dysphasia Diet Status: No changes Liquid Consistency and Strategies for Safe Swallow: Liquid Intake Recommendation: Supplemental PO NDD1/NT Liquid Intake Strategies: Small Sips No Straws Liquids by Teaspoon Only Solid Food Consistency: Dietary Recommendations: Supplemental PO NDD1/NT Additional Modifications to Solid Foods: Pt has PEG Oral Medication Intake: NPO (Per RN, meds have been given through G-tube) Please contact the pharmacy regarding appropriate crushable or liquid drug formulations that are available whenever modified delivery is recommended. Compensatory Strategies and Precautions to be Taken for Safe Swallow: Sitting Upright (90 deg) Double Swallow No Straw Liquids from Spoon Small Bites and Sips Rate of Ingestion Change Oral Check Avoid Specific Foods Supervision While Eating and Drinking for Safe Swallow: PO with CONCRETE FINISHER Foods to Avoid: Avoid sticky or congealed purees; mixed textures (liquid from puree) Swallowing Recommended Treatments: Gustatory Stimulation, Compens. Strategy Educat. Recommendation for Speech: Inpatient Speech Therapy Speech Therapy through Rehab Facility Intake Recommendations: Route: PO Diet Grade: Puree Liquid Consistencies: [place] Post-Study Functional Oral Intake Scale (FOIS): 5- Total oral intake of multiple consistencies requiring special preparation MBSS 10/23/22 revealed silent aspiration with trial of thin liquid. No aspiration or penetration with nectar thick, honey thick, and pureed consistencies. Recommend START on conservative textures PUREED (NDD1) solids and NECTAR THICK liquids via [place]. Pt requires 1:1 assistance feeding and cuing, with STRICT ASPIRATION PRECAUTIONS: -Oral care before first meal and after each subsequent meal -Pt must be awake and alert, attending to PO; otherwise tray to be held -Minimize distractions during meals -Sit upright during PO intake -Administer small bites -Ensure pt had swallowed before giving more bites -Avoid sticky or congealed purees; mixed textures (liquid from puree) -Administer thickened liquids via teaspoon, one sip at a time -Avoid straws Therapy Recommendations: Therapy will be continued Prognosis for Improvement: The prognosis for the patient to meet nutritional needs by mouth is fair based on degree of impairment, stimulability for treatment. Processor Inspector Goals: ? The patient will tolerate the least restrictive diet with a safe/efficient swallow to maintain adequate nutrition and hydration. ? The patient and/or family will participate in further education for swallowing goals. Short Term Goals: ? Diet - The patient will tolerate a pureed diet with nectar thick liquids without signs or symptoms of penetration/aspiration 100% of the time. - The patient will participate in therapeutic PO trials with the CONCRETE FINISHER. ? Guidelines - The patient will comply with/recall the following guidelines/strategies 100% of the time with maximum cuing: [place]-thick Liquid, Bolus Volume Change, Rate of Ingestion Change, No Straws. ? Education - The patient, family, caregiver will verbalize/demonstrate understanding of the results of this evaluation, the above recommendations, and the swallowing guidelines. Frequency/Duration: M-F as needed during hospitalization Psychologist [employer] Person[employer] Clinican/Clinical Fellow: No Supervisory Statement: I have reviewed and agree with the student/clinical fellow's documentation: N/A Speech Language Pathologist: Brenda Velarde M.A., CCC-CONCRETE FINISHER
--- NOTE | 2022-11-03 10:46 | MHC.CLN ---
F/U REVIEWED LABS PATIENT TOLERATING TUBE FEEDING AT MAX GOAL RATE PROMOTE AT 70ML/HR WITH 240ML FREE WATER FLUSHES Q 6HRS PROVIDES 1680KCALS (23KCALS/KG), 105G PROTEIN (1.4G/KG), 2369ML TOTAL WATER FROM FORMULA AND FLUSHES (32ML/KG) TF WITH HIGHER PROTEIN TO PROMOTE WOUND HEALING ALSO HAS DIET ORDER; DIET IS PUREED WITH NECTAR THICK LIQUIDS-OUTREACH REPRESENTATIVE CONTINUES TO FOLLOW MONITOR TOLERANCE, RESIDUALS AND LYTES
[2022-11-03 11:45] LABS: Glucose, Whole Blood 69 mg/dL (60-115)
[2022-11-03 12:15] LABS: Glucose, Whole Blood 81 mg/dL (60-115)
--- NOTE | 2022-11-03 12:47 | MHC.CM.PN ---
EMR REVIEWED, PT NOT MEDICALLY CLEARED FOR D/C, PER HOSPITALIST SALLIE ROBERTSON/ALEJANDRO D/C AND SNF WILL NEED TO BE SENT W/MULTIPLE JUGS OF PEG TUBE FEED WHEN READY, CM WILL CONT TO FOLLOW D/C NEEDS.
--- NOTE | 2022-11-03 15:34 | HO.PM.IMPN ---
Subjective Subjective Date of Service: 11/05/22 Interval History: hyponatremia, hypokalemia Review of Systems seems at baseline no new events Physical Exam Vital Signs: Vital Signs: Last Vital Signs Temp 99.1 F 11/03/22 15:31 Pulse 105 H 11/03/22 15:31 Resp 20 11/03/22 15:31 BP 98/61 11/03/22 15:31 Pulse Ox 93 11/03/22 15:31 O2 Del Method Room Air 11/03/22 15:31 O2 Flow Rate 3 10/22/22 07:48 FiO2 21 10/02/22 07:00 BMI result Body Mass Index 32.1 Gen:? Awake, no resp distress Lungs:? Bilateral coarse breath sound Heart:? Tachy regular rate and rhythm Abd: soft, non-tender, non-distended, PEG in place Ext:? no cyanosis or rash,pulses present Skin: warm/well-perfused, generally edematous in arms. Neuro: alert, nonverbal, moving all extremities Psych: impaired insight Objective Data Active Medications Acetaminophen (Acetaminophen Supp 650 Mg Supp.Rect) [address] Q6H PRN PRN Reason: Fever Last Admin: 10/31/22 00:25 Dose: 650 mg Documented By: CAROLIN Albuterol/Ipratropium (Albuterol/Iprat 2.5/0.5mg 3 Ml Ampul.Neb) 3 ml INHALE RQ4H WHILE AWAKE [facility] Last Admin: 11/03/22 15:20 Dose: 3 ml Documented By: RANJITH Apixaban (Apixaban 2.5 Mg Tablet) 2.5 mg G-TUBE BID [facility] Last Admin: 11/03/22 09:46 Dose: 2.5 mg Documented By: LANA Heparin Sodium (Porcine) 50 (units/ Sodium Chloride 5 ml) 0 units IVFLUSH QSHIFT [facility] Last Admin: 11/03/22 09:49 Dose: Not Given Documented By: LANA Non-Admin Reason: No central line Divalproex Sodium (Divalproex Sodium Sprinkles 125 Mg ) 1,000 mg G-TUBE BID [facility] Last Admin: 11/03/22 09:45 Dose: 1,000 mg Documented By: LANA Famotidine (Famotidine/Pf 20 Mg/2 Ml Vial) 20 mg IVPUSH DAILY [facility] Last Admin: 11/03/22 09:47 Dose: 20 mg Documented By: LANA Folic Acid (Folic Acid 1 Mg Tablet) 1 mg PO DAILY [facility] Last Admin: 11/03/22 09:46 Dose: 1 mg Documented By: LANA Glucose (Glucose Gel 15 Gm Gel..Gram.) 15 gm PO Q15M PRN; Protocol PRN Reason: per Hypoglycemia Standing Ord. Dextrose (D10) 250 mls @ 750 mls/hr IV Q15M PRN; Protocol PRN Reason: per Hypoglycemia Standing Ord. Last Infusion: 11/02/22 21:07 Dose: 0 mls/hr Documented By: DOT Folic Acid 1 mg/ Sodium (Chloride) 50.2 mls @ 100.4 mls/hr IV DAILY [facility] Stop: 11/05/22 09:29 Last Infusion: 11/03/22 10:28 Dose: 0 mls/hr Documented By: LANA Insulin Human Lispro (Insulin Lispro 100 Unit/Ml 3 Ml Vial) 0 unit SUBCUT QIDACHS [facility]; Protocol Last Admin: 11/03/22 11:49 Dose: Not Given Documented By: LANA Non-Admin Reason: No Insulin Coverage Levothyroxine Sodium (Levothyroxine Sodium 50 Mcg Tablet) 50 mcg G-TUBE DAILY@0600 [facility] Mirtazapine (Mirtazapine 7.5 Mg Tablet) 7.5 mg G-TUBE BEDTIME [facility] Ondansetron HCl (Ondansetron Hcl 4 Mg/2 Ml Vial) 4 mg IVPUSH Q4H PRN PRN Reason: Nausea and Vomiting Last Admin: 10/05/22 14:18 Dose: 4 mg Documented By: MILTON Quetiapine Fumarate (Quetiapine Fumarate 50 Mg Tablet) 50 mg G-TUBE TID [facility] Last Admin: 11/03/22 09:45 Dose: 50 mg Documented By: LANA Sodium Bicarbonate (Sodium Bicarbonate 650 Mg Tablet) 650 mg G-TUBE BID [facility] Last Admin: 11/03/22 09:45 Dose: 650 mg Documented By: LANA Zinc Oxide (Zinc Oxide 20% Ointment 28.35 Gm Tube) 1 appl TOPICAL BID [facility]; Protocol Last Admin: 11/03/22 09:48 Dose: 1 appl Documented By: LANA Labs 11/02/22 08:33 11/02/22 08:33 Labs: Laboratory Results - last 24 hr 11/02/22 11/02/22 11/02/22 15:56 17:20 19:49 POC Glucose 104 66 Stl C. cayetanensis PCR Not Detected Stool Rotavirus A PCR Not Detected Stl Adenov F 40/41 PCR Not Detected Stool Astrovirus (PCR) Not Detected Stool Campylobacter PCR Not Detected Stool Cryptosporidium PCR Not Detected Stl Sh Tox Pr E STEC PCR Not Detected Stool E coli O157 PCR Not applicable Stl Enterotoxigenic E PCR Not Detected Stool EPEC (PCR) Not Detected Stool EAEC (PCR) Not Detected Stl E. histolytica PCR Not Detected Stool Giardia Lamblia PCR Not Detected Stl P. shigelloides PCR Not Detected Stool Salmonella PCR Not Detected Stool Sapovirus (PCR) Not Detected Stl Shigella/EIEC PCR Not Detected St Y.enterocolitica PCR Not Detected Stool Vibrio (PCR) Not Detected Stl Vibrio cholerae PCR Not Detected Stl Norovirus GI/GII PCR Not Detected 11/02/22 11/03/22 11/03/22 21:06 07:44 11:32 POC Glucose 137 H 74 69 Stl C. cayetanensis PCR Stool Rotavirus A PCR Stl Adenov F 40/41 PCR Stool Astrovirus (PCR) Stool Campylobacter PCR Stool Cryptosporidium PCR Stl Sh Tox Pr E STEC PCR Stool E coli O157 PCR Stl Enterotoxigenic E PCR Stool EPEC (PCR) Stool EAEC (PCR) Stl E. histolytica PCR Stool Giardia Lamblia PCR Stl P. shigelloides PCR Stool Salmonella PCR Stool Sapovirus (PCR) Stl Shigella/EIEC PCR St Y.enterocolitica PCR Stool Vibrio (PCR) Stl Vibrio cholerae PCR Stl Norovirus GI/GII PCR 11/03/22 12:11 POC Glucose 81 Stl C. cayetanensis PCR Stool Rotavirus A PCR Stl Adenov F 40/41 PCR Stool Astrovirus (PCR) Stool Campylobacter PCR Stool Cryptosporidium PCR Stl Sh Tox Pr E STEC PCR Stool E coli O157 PCR Stl Enterotoxigenic E PCR Stool EPEC (PCR) Stool EAEC (PCR) Stl E. histolytica PCR Stool Giardia Lamblia PCR Stl P. shigelloides PCR Stool Salmonella PCR Stool Sapovirus (PCR) Stl Shigella/EIEC PCR St Y.enterocolitica PCR Stool Vibrio (PCR) Stl Vibrio cholerae PCR Stl Norovirus GI/GII PCR Assessment and Plan (1) Fever of unknown origin: Status: Acute (2) Coronavirus infection: Status: Acute Plan initially admitted to ICU for pressor support for sepsis due to UTI.? She improved and was discharged from the ICU after 72 hours.? While awaiting to be discharged earlier, she vomitted and developped acute hypoix respiratory failure due to aspiration pneumonia and this raised safety about her PO intake ability and as such, she was started on TPN and? decision was made and agreed upon by her guargian to have a feeding tube to maintain her nutrition and minimize aspiration risk. A feeding tube placement was delayed? until an ICU bed could be secured in the event that she needed to be intubated after the procedure, giving her extremely high risk.? Ultimately the PEG was inserted withough need for ICU admission and she is tolerating tube at maxim rate of 70 recommended by nutrition. Additionally over the coure of time, she has continuously been? followed by [facility] therapy and gained the ability to eat Puree food? with [place] thic liquid. ? 1. Aspiration pneumonitis/ recurrent? aspiration with sepsis, initally treated with ICU as above. Treated with nearly 3 weeks of IV antibiotics, initally 10 days of, then developped repeat aspiration and treated for another week. She is no longer hypoxic, no fever, and WBC is within normal. Strick aspiration precaution to be taking. Acute hypoxic respiratory failure has resolved.? patient has intermittent wpisode of fevers . cxr-: linear atelactasis added res panel-positive [id number], gi panel negative , blood cultures pending incentive sprio,chest physio,head elevation, nebs hyperkalemia -given loklema-resolved may be need Id follow up due to coronoa positive, gip pnel negtaive,keep having intermittent fevers ,blood cultures pending defer anitibiotics 2. Hypernatremia:continue g-tube free water 4. Pulmonary embolism (by history) on Eliquis , while awaiting surgery was changed to Levenox and after the procedure was changed back to Elquis at her usual dose. 5. Schizoaffective disorder -continue home medications Depakote, Seroquel and mirtazepine? at bedtime 6. Acute on chronic macrocytic anemia status post 2 units of packed RBC hematocrit improved but dropped today to 27.2, no active bleeding noted, normal? B12, low folate ?? Continue folic acid 1 mg daily , will add iv folate h/h slowly smoldering down , no gross bleedin we will give 1 prbc repeat h/h -around 9. 7. Dysphagia seen by speech therapy--She as on PPN and was followed closely by speech and ultimately improved and was? started puree diet with honey thick liquid, additionally she is to get nutrition through PEG with promote at max goal of 70 ml /hr with 240 free water shoshes q6 hours 8. UTI(multpile organisms) -completed course of antibiotics. 9. Hypothyroidism continue levothyroxine 10. Fluid overload--treate with HCTZ and improve. 11: multiple wounds: please see hospitalist not from 10/19/22 continue wound care ,freq turnin, added surgery eval for left heel ulcer (seems skin peeling)?-Wound was examined by surgery today and callus easily removed.? The base of the wound is granulating with no evidence of necrotic tissue or underlying abscess.? Recommend continuing silver alginate and dry sterile dressings.? Keep all pressure off heels frequent turnin, incentive sheila,chest physio 12. hypernatremia : free water 250 ml q6hr via gtube hyperkalemia-s/plokelma via gtube. hypernatremia and hyperkalemia seems improved with above tretaments. ongoing inpatient stay need:await placeement Time Spent With Patient Time: Total time managing care of this patient today ____ minutes. Quality Stroke Does the patient have a stroke diagnosis?: No VTE Prior VTE?: No VTE Risk Level:: Medical - moderate - high VTE Device Contraindication: N/A - Device Ordered VTE Drug Contraindication: N/A - Med Ordered
[2022-11-03 16:04] LABS: Glucose, Whole Blood 85 mg/dL (60-115)
[2022-11-03 21:07] LABS: Glucose, Whole Blood 91 mg/dL (60-115)
[2022-11-03 22:19] LABS: Lactic Acid 1.5 mmol/L (0.5-2.0)
[2022-11-03] MEDS: Acetaminophen Supp 650 MG SUPP.RECT PR (22:25)
[2022-11-03] MEDS: Mirtazapine 7.5 MG TABLET G-TUBE (22:33)
[2022-11-04] VITALS (9 sets, daily range): BP systolic 98–137; BP diastolic 53–63; PULSE 90–127; RESP 18–22; TEMP 36.1–37.6; O2SAT 90–97
[2022-11-04] MEDS: Levothyroxine Sodium 50 MCG TABLET G-TUBE (06:29)
[2022-11-04 07:51] LABS: Glucose, Whole Blood 94 mg/dL (60-115)
[2022-11-04] MEDS: Famotidine/PF 20 MG/2 ML VIAL IVPUSH (08:07)
[2022-11-04] MEDS: Folic Acid 1 MG in 0.9 % Sodium Chloride 50 ML 100.4 MG IV (08:07)
[2022-11-04] MEDS: Divalproex Sodium Sprinkles 125 MG CAP.DR.SPR 1000 MG G-TUBE ×2 (08:11→21:38)
[2022-11-04] MEDS: QUEtiapine Fumarate 50 MG TABLET G-TUBE ×3 (08:12→21:39)
[2022-11-04] MEDS: Apixaban 2.5 MG TABLET G-TUBE ×2 (08:12→21:39)
[2022-11-04] MEDS: Sodium Bicarbonate 650 MG TABLET G-TUBE ×2 (08:12→21:38)
[2022-11-04] MEDS: Folic Acid 1 MG TABLET PO (08:12)
[2022-11-04] MEDS: Zinc Oxide 20% Ointment 28.35 GM TUBE 1 APPL TOPICAL ×2 (08:31→21:39)
[2022-11-04 09:03] LABS: Potassium 4.7 mmol/L (3.3-5.1); Sodium 145 mmol/L (135-145)
[2022-11-04 11:07] LABS: Glucose, Whole Blood 82 mg/dL (60-115)
[2022-11-04] MEDS: Albuterol/Iprat 2.5/0.5MG 3 ML AMPUL.NEB INHALE ×3 (11:38→20:18)
--- NOTE | 2022-11-04 13:28 | MHC.CM.PN ---
CM has reached out to [facility] via [facility] today and by calling the facility @ [phone], to discuss Patient's return; There has been no response in [employer] and when the call to the SNF was transferred, it went to a number without a voice mail and the call was ultimately disconnected. made aware of difficulty with reaching the SNF.
[2022-11-04 16:11] LABS: Glucose, Whole Blood 111 mg/dL (60-115)
[2022-11-04 19:33] LABS: Glucose, Whole Blood 104 mg/dL (60-115)
[2022-11-04] MEDS: Mirtazapine 7.5 MG TABLET G-TUBE (21:38)
[2022-11-05] VITALS (11 sets, daily range): BP systolic 91–165; BP diastolic 49–74; PULSE 91–112; RESP 18–26; TEMP 36.1–38.4; O2SAT 89–99
[2022-11-05] MEDS: Acetaminophen Supp 650 MG SUPP.RECT PR ×2 (00:51→23:56)
[2022-11-05 01:43] LABS: Hematocrit 26.1 % (37.0-47.0); Hemoglobin 7.9 g/dl (12.0-16.0); Mean Corpuscular HGB Conc 30.3 g/dl (31.0-35.0); Mean Corpuscular Hemoglobin 30.3 pg (27.0-33.0); Mean Platelet Volume 11.7 fL (9.4-12.3); NRBC Pct Auto 0.6 /100WBC (0.0-0.2); Platelet Count 190 X10*3/uL (160-400); Red Blood Count 2.61 X10*6/uL (4.20-5.50); Red Cell Distribution Width 17.7 % (11.0-16.0); White Blood Count 17.5 X10*3/uL (4.8-10.8)
[2022-11-05 02:07] LABS: Band Neutrophils Percent 8 % (3-5); Basophils Abs Manual 0.2 X10*3/uL (0.0-0.2); Basophils Percent Manual 1 % (0-2); Eosinophils Absolute Manual 0.4 X10*3/uL (0.0-0.4); Eosinophils Percent Manual 2 % (0-4); Lymphocytes Absolute Manual 4.2 X10*3/uL (1.2-4.9); Lymphocytes Percent Manual 24 % (20-40); Monocytes Absolute Manual 2.1 X10*3/uL (0.1-1.2); Monocytes Percent Manual 12 % (2-11); Myelocytes Absolute 0.7 X10*/uL; Myelocytes Percent 4 %; Neutrophils Percent Manual 49 % (45-73); Nucleated Red Blood Cells 1 /100WBC (0-0)
[2022-11-05 02:09] LABS: Basophilic Stippling 1+ (0-2) /OIF; Platelet Estimate SLIGHTLY DECREASED (NORMAL); Platelet Morphology Comment NORMAL; Polychromasia 1+ (0-2) /OIF; RBC Morphology NOTED; Smudge Cells PRESENT
[2022-11-05] MEDS: Piperacillin Sodium/Tazobactam 3.375 GM in 0.9 % Sodium Chloride 50 ML IV ×4 (04:29→22:57)
[2022-11-05] MEDS: Levothyroxine Sodium 50 MCG TABLET G-TUBE (05:06)
[2022-11-05 07:28] LABS: Glucose, Whole Blood 112 mg/dL (60-115)
[2022-11-05] MEDS: Albuterol/Iprat 2.5/0.5MG 3 ML AMPUL.NEB INHALE ×3 (07:46→15:18)
[2022-11-05] MEDS: Famotidine/PF 20 MG/2 ML VIAL IVPUSH ×2 (08:00→22:57)
[2022-11-05] MEDS: Sodium Bicarbonate 650 MG TABLET G-TUBE ×2 (08:01→22:58)
[2022-11-05] MEDS: Folic Acid 1 MG TABLET PO (08:02)
[2022-11-05] MEDS: QUEtiapine Fumarate 50 MG TABLET G-TUBE ×3 (08:02→22:58)
[2022-11-05] MEDS: Apixaban 2.5 MG TABLET G-TUBE ×2 (08:02→22:58)
[2022-11-05] MEDS: Divalproex Sodium Sprinkles 125 MG CAP.DR.SPR 1000 MG G-TUBE ×2 (08:02→22:59)
[2022-11-05] MEDS: Zinc Oxide 20% Ointment 28.35 GM TUBE 1 APPL TOPICAL (08:03)
[2022-11-05] MEDS: Folic Acid 1 MG in 0.9 % Sodium Chloride 50 ML 100.4 MG IV (09:45)
[2022-11-05 11:22] LABS: Appearance Urine Cloudy; Color Urine Yellow; Glucose Urine UA Negative (Negative); Leukocyte Esterase Urine Large (3+) (Negative); Nitrite Urine Positive (Negative); UMIC TRIGGER UACC YES; Urine Blood Small (1+) (Negative); Urine Ketones Negative (Negative); Urine Protein 100 (2+) mg/dL (Neg-Trace)
[2022-11-05 11:24] LABS: Glucose, Whole Blood 100 mg/dL (60-115)
[2022-11-05 11:38] LABS: Bacteria Urine 1+ (None Seen); Hyaline Casts Urine 0-2 /LPF (0-2); Squamous Epithelial Cell Urine 0-2 /HPF (0-2); UACC Culture Trigger YES; WBC Urine >50 /HPF (0-5)
--- NOTE | 2022-11-05 12:13 | HO.PM.IMPN ---
Subjective Subjective Date of Service: 11/06/22 Interval History: fuo Review of Systems no new events except feverx1 episode last night ua abnormal Physical Exam Vital Signs: Vital Signs: Last Vital Signs Temp 97.0 F 11/05/22 11:46 Pulse 100 11/05/22 11:46 Resp 20 11/05/22 11:46 BP 165/74 H 11/05/22 11:46 Pulse Ox 93 11/05/22 11:46 O2 Del Method Room Air 11/05/22 11:46 O2 Flow Rate 2 11/05/22 04:00 FiO2 21 10/02/22 07:00 BMI result Body Mass Index 32.1 Gen:? Awake, no resp distress Lungs:? Bilateral coarse breath sound Heart:? Tachy regular rate and rhythm Abd: soft, non-tender, non-distended, PEG in place Ext:? no cyanosis or rash,pulses present Skin: warm/well-perfused, generally edematous in arms. Neuro: alert, nonverbal, moving all extremities Psych: impaired insight Objective Data Active Medications Acetaminophen (Acetaminophen Supp 650 Mg Supp.Rect) 650 mg [place] Q6H PRN PRN Reason: Fever Last Admin: 11/05/22 00:51 Dose: 650 mg Documented By: SARMAD Albuterol/Ipratropium (Albuterol/Iprat 2.5/0.5mg 3 Ml Ampul.Neb) 3 ml INHALE RQ4H WHILE AWAKE [facility] Last Admin: 11/05/22 11:31 Dose: 3 ml Documented By: JONI Apixaban (Apixaban 2.5 Mg Tablet) 2.5 mg G-TUBE BID [facility] Last Admin: 11/05/22 08:02 Dose: 2.5 mg Documented By: ERICKSON Heparin Sodium (Porcine) 50 (units/ Sodium Chloride 5 ml) 0 units IVFLUSH QSHIFT [facility] Last Admin: 11/05/22 07:55 Dose: Not Given Documented By: ERICKSON Non-Admin Reason: no central line access Divalproex Sodium (Divalproex Sodium Sprinkles 125 Mg ) 1,000 mg G-TUBE BID [facility] Last Admin: 11/05/22 08:02 Dose: 1,000 mg Documented By: ERICKSON Famotidine (Famotidine/Pf 20 Mg/2 Ml Vial) 20 mg IVPUSH DAILY [facility] Last Admin: 11/05/22 08:00 Dose: 20 mg Documented By: ERICKSON Folic Acid (Folic Acid 1 Mg Tablet) 1 mg PO DAILY [facility] Last Admin: 11/05/22 08:02 Dose: 1 mg Documented By: ERICKSON Glucose (Glucose Gel 15 Gm Gel..Gram.) 15 gm PO Q15M PRN; Protocol PRN Reason: per Hypoglycemia Standing Ord. Dextrose (D10) 250 mls @ 750 mls/hr IV Q15M PRN; Protocol PRN Reason: per Hypoglycemia Standing Ord. Last Infusion: 11/02/22 21:07 Dose: 0 mls/hr Documented By: DOT Piperacillin Sod/Tazobactam (Sod 3.375 gm/ Sodium Chloride) 50 mls @ 100 mls/hr IV Q6H [facility] Last Infusion: 11/05/22 08:37 Dose: 0 mls/hr Documented By: ERICKSON Insulin Human Lispro (Insulin Lispro 100 Unit/Ml 3 Ml Vial) 0 unit SUBCUT QIDACHS [facility]; Protocol Last Admin: 11/05/22 07:31 Dose: Not Given Documented By: ERICKSON Non-Admin Reason: No Insulin Coverage Levothyroxine Sodium (Levothyroxine Sodium 50 Mcg Tablet) 50 mcg G-TUBE DAILY@0600 [facility] Last Admin: 11/05/22 05:06 Dose: 50 mcg Documented By: SARMAD Mirtazapine (Mirtazapine 7.5 Mg Tablet) 7.5 mg G-TUBE BEDTIME [facility] Last Admin: 11/04/22 21:38 Dose: 7.5 mg Documented By: BREE Ondansetron HCl (Ondansetron Hcl 4 Mg/2 Ml Vial) 4 mg IVPUSH Q4H PRN PRN Reason: Nausea and Vomiting Last Admin: 10/05/22 14:18 Dose: 4 mg Documented By: MILTON Quetiapine Fumarate (Quetiapine Fumarate 50 Mg Tablet) 50 mg G-TUBE TID [facility] Last Admin: 11/05/22 08:02 Dose: 50 mg Documented By: ERICKSON Sodium Bicarbonate (Sodium Bicarbonate 650 Mg Tablet) 650 mg G-TUBE BID [facility] Last Admin: 11/05/22 08:01 Dose: 650 mg Documented By: ERICKSON Zinc Oxide (Zinc Oxide 20% Ointment 28.35 Gm Tube) 1 appl TOPICAL BID [facility]; Protocol Last Admin: 11/05/22 08:03 Dose: 1 appl Documented By: ERICKSON Labs 11/05/22 01:29 11/04/22 08:36 Labs: Laboratory Results - last 24 hr 11/04/22 11/04/22 11/05/22 16:04 19:08 01:29 MCV 100.0 H MCH 30.3 MCHC 30.3 L RDW 17.7 H Plt Count 190 D MPV 11.7 Immature Gran % (Auto) Cancelled Neut % (Auto) Cancelled Lymph % (Auto) Cancelled [place] % (Auto) Cancelled Eos % (Auto) Cancelled Baso % (Auto) Cancelled Lymph # (Auto) Cancelled [place] # (Auto) Cancelled Eos # (Auto) Cancelled Baso # (Auto) Cancelled Abs Immat Gran (auto) Cancelled Absolute Neuts (auto) Cancelled Absolute Nucleated RBC 0.110 H Nucleated RBC % (auto) 0.6 H Neutrophils % (Manual) 49 Band Neutrophils % 8 H Lymphocytes % (Manual) 24 Monocytes % (Manual) 12 H Eosinophils % (Manual) 2 Basophils % (Manual) 1 Myelocytes % 4 Abs Neuts (Manual) 10.0 H Lymphocytes # (Manual) 4.2 Monocytes # (Manual) 2.1 H Eosinophils # (Manual) 0.4 Basophils # (Manual) 0.2 Myelocytes # 0.7 Nucleated RBCs 1 H Smudge Cells PRESENT Platelet Estimate SLIGHTLY DECREASED Plt Morphology Comment NORMAL RBC Morphology NOTED Polychromasia 1+ (0-2) Basophilic Stippling 1+ (0-2) POC Glucose 111 104 Lactic Acid Urine Color Urine Appearance Urine pH Ur Specific [place] Urine Protein Urine Glucose (UA) Urine Ketones Urine Blood Urine Nitrite Ur Leukocyte Esterase Urine RBC Urine WBC Ur Squamous Epith Cells Urine Bacteria Hyaline Casts 11/05/22 11/05/22 11/05/22 01:29 07:22 11:03 MCV MCH MCHC RDW Plt Count MPV Immature Gran % (Auto) Neut % (Auto) Lymph % (Auto) [place] % (Auto) Eos % (Auto) Baso % (Auto) Lymph # (Auto) [place] # (Auto) Eos # (Auto) Baso # (Auto) Abs Immat Gran (auto) Absolute Neuts (auto) Absolute Nucleated RBC Nucleated RBC % (auto) Neutrophils % (Manual) Band Neutrophils % Lymphocytes % (Manual) Monocytes % (Manual) Eosinophils % (Manual) Basophils % (Manual) Myelocytes % Abs Neuts (Manual) Lymphocytes # (Manual) Monocytes # (Manual) Eosinophils # (Manual) Basophils # (Manual) Myelocytes # Nucleated RBCs Smudge Cells Platelet Estimate Plt Morphology Comment RBC Morphology Polychromasia Basophilic Stippling POC Glucose 112 Lactic Acid 1.0 Urine Color Yellow Urine Appearance Cloudy Urine pH 8.0 Ur Specific [place] 1.010 Urine Protein 100 (2+) H Urine Glucose (UA) Negative Urine Ketones Negative Urine Blood Small (1+) H Urine Nitrite Positive H Ur Leukocyte Esterase Large (3+) H Urine RBC 3-5 H Urine WBC >50 H Ur Squamous Epith Cells 0-2 Urine Bacteria 1+ Hyaline Casts 0-2 11/05/22 11:17 MCV MCH MCHC RDW Plt Count MPV Immature Gran % (Auto) Neut % (Auto) Lymph % (Auto) [place] % (Auto) Eos % (Auto) Baso % (Auto) Lymph # (Auto) [place] # (Auto) Eos # (Auto) Baso # (Auto) Abs Immat Gran (auto) Absolute Neuts (auto) Absolute Nucleated RBC Nucleated RBC % (auto) Neutrophils % (Manual) Band Neutrophils % Lymphocytes % (Manual) Monocytes % (Manual) Eosinophils % (Manual) Basophils % (Manual) Myelocytes % Abs Neuts (Manual) Lymphocytes # (Manual) Monocytes # (Manual) Eosinophils # (Manual) Basophils # (Manual) Myelocytes # Nucleated RBCs Smudge Cells Platelet Estimate Plt Morphology Comment RBC Morphology Polychromasia Basophilic Stippling POC Glucose 100 Lactic Acid Urine Color Urine Appearance Urine pH Ur Specific [place] Urine Protein Urine Glucose (UA) Urine Ketones Urine Blood Urine Nitrite Ur Leukocyte Esterase Urine RBC Urine WBC Ur Squamous Epith Cells Urine Bacteria Hyaline Casts Microbiology Microbiology Results: Microbiology 11/03/22 21:59 Blood Culture - Preliminary Blood - Venous No growth after 24 hours. 11/03/22 21:59 Blood Culture - Preliminary Blood - Venous No growth after 24 hours. 10/30/22 14:18 Blood Culture - Final Blood - Venous No growth after 5 days. 10/30/22 14:18 Blood Culture - Final Blood - Venous No growth after 5 days. Assessment and Plan (1) Fever of unknown origin: Status: Acute (2) Coronavirus infection: Status: Acute Plan initially admitted to ICU for pressor support for sepsis due to UTI.? She improved and was discharged from the ICU after 72 hours.? While awaiting to be discharged earlier, she vomitted and developped acute hypoix respiratory failure due to aspiration pneumonia and this raised safety about her PO intake ability and as such, she was started on TPN and? decision was made and agreed upon by her guargian to have a feeding tube to maintain her nutrition and minimize aspiration risk. A feeding tube placement was delayed? until an ICU bed could be secured in the event that she needed to be intubated after the procedure, giving her extremely high risk.? Ultimately the PEG was inserted withough need for ICU admission and she is tolerating tube at maxim rate of 70 recommended by nutrition. Additionally over the coure of time, she has continuously been? followed by [facility] therapy and gained the ability to eat Puree food? with [place] thic liquid. ? 1. Aspiration pneumonitis/ recurrent? aspiration with sepsis, initally treated with ICU as above. Treated with nearly 3 weeks of IV antibiotics, initally 10 days of, then developped repeat aspiration and treated for another week. She is no longer hypoxic, no fever, and WBC is within normal. Strick aspiration precaution to be taking. Acute hypoxic respiratory failure has resolved.? patient has intermittent wpisode of fevers . cxr-: linear atelactasis added res panel-positive [id number], gi panel negative , blood cultures pending incentive sprio,chest physio,head elevation, nebs hyperkalemia -given loklema-resolved corono positive 11/02, gi panel negtaive,keep having intermittent fevers ,blood cultures pending,leucocytosis trending up ua sent last night -positive ,urine cultures pending,cxr seems fine(11/05) started on zosyn last night need Id follow up -for fuo. 2. Hypernatremia:continue g-tube free water 4. Pulmonary embolism (by history) on Eliquis , while awaiting surgery was changed to Levenox and after the procedure was changed back to Elquis at her usual dose. 5. Schizoaffective disorder -continue home medications Depakote, Seroquel and mirtazepine? at bedtime 6. Acute on chronic macrocytic anemia status post 2 units of packed RBC hematocrit improved but dropped today to 27.2, no active bleeding noted, normal? B12, low folate ?? Continue folic acid 1 mg daily , will add iv folate h/h slowly smoldering down , no gross bleedin we will give 1 prbc repeat h/h -around 9. 7. Dysphagia seen by speech therapy--She as on PPN and was followed closely by speech and ultimately improved and was? started puree diet with honey thick liquid, additionally she is to get nutrition through PEG with promote at max goal of 70 ml /hr with 240 free water shoshes q6 hours 8. UTI(multpile organisms) -completed course of antibiotics. 9. Hypothyroidism continue levothyroxine 10. Fluid overload--treate with HCTZ and improve. 11: multiple wounds: please see hospitalist not from 10/19/22 continue wound care ,freq turnin, added surgery eval for left heel ulcer (seems skin peeling)?-Wound was examined by surgery (11/01) and callus easily removed.? The base of the wound is granulating with no evidence of necrotic tissue or underlying abscess.? Recommend continuing silver alginate and dry sterile dressings.? Keep all pressure off heels frequent turnin, incentive sheila,chest physio 12. hypernatremia : free water 250 ml q6hr via gtube hyperkalemia-s/plokelma via gtube. hypernatremia and hyperkalemia seems improved with above tretaments. ongoing inpatient stay need:fuo-? rhodes vs possible urinary source Time Spent With Patient Time: Total time managing care of this patient today ____ minutes. Quality Stroke Does the patient have a stroke diagnosis?: No VTE Prior VTE?: No VTE Risk Level:: Medical - moderate - high VTE Device Contraindication: N/A - Device Ordered VTE Drug Contraindication: N/A - Med Ordered
[2022-11-05 16:09] LABS: Glucose, Whole Blood 124 mg/dL (60-115)
[2022-11-05 20:20] LABS: Glucose, Whole Blood 113 mg/dL (60-115)
[2022-11-05] MEDS: Mirtazapine 7.5 MG TABLET G-TUBE (22:58)
[2022-11-06] VITALS (8 sets, daily range): BP systolic 96–125; BP diastolic 50–57; PULSE 85–111; RESP 14–20; TEMP 36.4–37.1; O2SAT 91–99
[2022-11-06] MEDS: Piperacillin Sodium/Tazobactam 3.375 GM in 0.9 % Sodium Chloride 50 ML IV ×2 (02:47→09:40)
[2022-11-06] MEDS: Levothyroxine Sodium 50 MCG TABLET G-TUBE (05:56)
[2022-11-06 07:32] LABS: Glucose, Whole Blood 109 mg/dL (60-115)
[2022-11-06] MEDS: Albuterol/Iprat 2.5/0.5MG 3 ML AMPUL.NEB INHALE (07:41)
[2022-11-06] MEDS: Famotidine/PF 20 MG/2 ML VIAL IVPUSH ×2 (09:40→20:36)
[2022-11-06] MEDS: Sodium Bicarbonate 650 MG TABLET G-TUBE ×2 (09:41→20:36)
[2022-11-06] MEDS: QUEtiapine Fumarate 50 MG TABLET G-TUBE ×3 (09:41→20:36)
[2022-11-06] MEDS: Divalproex Sodium Sprinkles 125 MG CAP.DR.SPR 1000 MG G-TUBE ×2 (09:41→20:36)
[2022-11-06] MEDS: Folic Acid 1 MG TABLET 2 MG PO (09:41)
[2022-11-06] MEDS: Apixaban 2.5 MG TABLET G-TUBE ×2 (09:41→20:36)
[2022-11-06] MEDS: Zinc Oxide 20% Ointment 28.35 GM TUBE 1 APPL TOPICAL (09:42)
[2022-11-06] MEDS: Folic Acid 1 MG in 0.9 % Sodium Chloride 50 ML 100.4 MG IV (10:18)
[2022-11-06 11:10] LABS: Glucose, Whole Blood 100 mg/dL (60-115)
--- NOTE | 2022-11-06 11:27 | MHC.CLN ---
F/U PATIENT TOLERATING TUBE FEEDING AT MAX GOAL RATE PROMOTE AT 70ML/HR WITH 240ML FREE WATER FLUSHES Q 6HRS PROVIDES 1680KCALS (23KCALS/KG), 105G PROTEIN (1.4G/KG), 2369ML TOTAL WATER FROM FORMULA AND FLUSHES (32ML/KG) TF WITH HIGHER PROTEIN TO PROMOTE WOUND HEALING ALSO HAS DIET ORDER; DIET IS PUREED WITH NECTAR THICK LIQUIDS-TOOL SETTER CONTINUES TO FOLLOW MONITOR TOLERANCE, RESIDUALS AND LYTES
--- NOTE | 2022-11-06 11:30 | MHC.SLORD ---
Speech Language Pathology Order Status: Per RN, pt has not taken PO over weekend or on this date. [employer] attempted to see pt for oral care and PO trials. Pt refused offers by closing mouth tightly, turning body away, and yelling. [employer] to continue to follow.
--- NOTE | 2022-11-06 11:39 | MHC.CM.PN ---
EMR REVIEWED, PT'S WBC ELEVATED AT 17.5, TEMP ELEVATED ON OVERNIGHT SHIFT, BLOOD CULTURES PENDING AND HAS UPDATED [facility], CM CONFIRMED W/SNF THAT 48HRS OF PEG TUBE NUTRITION WILL BE ADEQUATE, NOT ONE WEEKS WORTH, CM WILL CONT TO FOLLOW D/C NEEDS.
--- NOTE | 2022-11-06 16:01 | P.PNIM_ITS ---
Subjective Subjective Date of Service: 11/06/22 Interval History: intermittent fevers Review of Systems no new events overnight-has episode of fever patient awake. Physical Exam Vital Signs: Vital Signs: Last Vital Signs Temp 98.0 F 11/06/22 15:40 Pulse 111 H 11/06/22 15:40 Resp 15 11/06/22 15:40 BP 102/57 L 11/06/22 15:40 Pulse Ox 92 11/06/22 15:40 O2 Del Method Room Air 11/06/22 15:40 O2 Flow Rate 1 11/06/22 11:08 FiO2 21 10/02/22 07:00 BMI result Body Mass Index 32.1 Gen:? Awake, no resp distress Lungs:air entry fair ,dimished at bases Heart:? Tachy regular rate and rhythm Abd: soft, non-tender, non-distended, PEG in place Ext:? no cyanosis or rash,pulses present Skin: warm/well-perfused, generally edematous in arms. Neuro: alert, nonverbal, moving all extremities Psych: impaired insight Objective Data Active Medications Acetaminophen (Acetaminophen Supp 650 Mg Supp.Rect) 650 mg CA Q6H PRN PRN Reason: Fever Last Admin: 11/05/22 23:56 Dose: 650 mg Documented By: ANNALEE Albuterol/Ipratropium (Albuterol/Iprat 2.5/0.5mg 3 Ml Ampul.Neb) 3 ml INHALE R Q4H WHILE AWAKE [facility] Last Admin: 11/06/22 14:47 Dose: Not Given Documented By: JONI Non-Admin Reason: pt unavail Apixaban (Apixaban 2.5 Mg Tablet) 2.5 mg G-TUBE BID [facility] Last Admin: 11/06/22 09:41 Dose: 2.5 mg Documented By: ERICKSON Heparin Sodium (Porcine) 50 (units/ Sodium Chloride 5 ml) 0 units IVFLUSH QSHIFT [facility] Last Admin: 11/06/22 09:27 Dose: Not Given Documented By: ERICKSON Non-Admin Reason: no central line acces Divalproex Sodium (Divalproex Sodium Sprinkles 125 Mg ) 1,000 mg G- TUBE BID [facility] Last Admin: 11/06/22 09:41 Dose: 1,000 mg Documented By: ERICKSON Famotidine (Famotidine/Pf 20 Mg/2 Ml Vial) 20 mg IVPUSH BID [facility] Last Admin: 11/06/22 09:40 Dose: 20 mg Documented By: ERICKSON Folic Acid (Folic Acid 1 Mg Tablet) 2 mg PO DAILY [facility] Last Admin: 11/06/22 09:41 Dose: 2 mg Documented By: ERICKSON Glucose (Glucose Gel 15 Gm Gel..Gram.) 15 gm PO Q15M PRN; Protocol PRN Reason: per Hypoglycemia Standing Ord. Dextrose (D10) 250 mls @ 750 mls/hr IV Q15M PRN; Protocol PRN Reason: per Hypoglycemia Standing Ord. Last Infusion: 11/02/22 21:07 Dose: 0 mls/hr Documented By: DOT Folic Acid 1 mg/ Sodium (Chloride) 50.2 mls @ 100.4 mls/hr IV DAILY [facility] Last Infusion: 11/06/22 11:03 Dose: 0 mls/hr Documented By: ERICKSON Meropenem 1 gm/ Sodium (Chloride) 100 mls @ 200 mls/hr IV Q8H [facility] Last Infusion: 11/06/22 15:40 Dose: 0 mls/hr Documented By: ERICKSON Insulin Human Lispro (Insulin Lispro 100 Unit/Ml 3 Ml Vial) 0 unit SUBCUT QIDACHS [facility]; Protocol Last Admin: 11/06/22 11:48 Dose: Not Given Documented By: ERICKSON Non-Admin Reason: No Insulin Coverage Levothyroxine Sodium (Levothyroxine Sodium 50 Mcg Tablet) 50 mcg G-TUBE DAILY@0600 [facility] Last Admin: 11/06/22 05:56 Dose: 50 mcg Documented By: ANNALEE Mirtazapine (Mirtazapine 7.5 Mg Tablet) 7.5 mg G-TUBE BEDTIME [facility] Last Admin: 11/05/22 22:58 Dose: 7.5 mg Documented By: ANNALEE Ondansetron HCl (Ondansetron Hcl 4 Mg/2 Ml Vial) 4 mg IVPUSH Q4H PRN PRN Reason: Nausea and Vomiting Last Admin: 10/05/22 14:18 Dose: 4 mg Documented By: MILTON Quetiapine Fumarate (Quetiapine Fumarate 50 Mg Tablet) 50 mg G-TUBE TID [facility] Last Admin: 11/06/22 14:50 Dose: 50 mg Documented By: ERICKSON Sodium Bicarbonate (Sodium Bicarbonate 650 Mg Tablet) 650 mg G-TUBE BID [facility] Last Admin: 11/06/22 09:41 Dose: 650 mg Documented By: ERICKSON Zinc Oxide (Zinc Oxide 20% Ointment 28.35 Gm Tube) 1 appl TOPICAL BID [facility]; Protocol Last Admin: 11/06/22 09:42 Dose: 1 appl Documented By: ERICKSON Labs 11/05/22 01:29 11/04/22 08:36 Labs: Laboratory Results - last 24 hr 11/05/22 11/05/22 11/06/22 16:05 20:16 07:25 POC Glucose 124 H 113 109 11/06/22 11:07 POC Glucose 100 Microbiology Microbiology Results: Microbiology 11/05/22 Unknown Urine Culture - Preliminary Urine Catheterized - Randall Catheter Gram negative thomas 11/05/22 01:30 Blood Culture - Preliminary Blood - Venous No growth after 24 hours. 11/05/22 01:30 Blood Culture - Preliminary Blood - Venous No growth after 24 hours. 11/03/22 21:59 Blood Culture - Preliminary Blood - Venous No growth after 48 hours. 11/03/22 21:59 Blood Culture - Preliminary Blood - Venous No growth after 48 hours. Assessment and Plan (1) Fever of unknown origin: Status: Acute (2) Coronavirus infection: Status: Acute Plan initially admitted to ICU for pressor support for sepsis due to UTI.? She improved and was discharged from the ICU after 72 hours.? While awaiting to be discharged earlier, she vomitted and developped acute hypoix respiratory failure due to aspiration pneumonia and this raised safety about her PO intake ability and as such, she was started on TPN and? decision was made and agreed upon by her guargian to have a feeding tube to maintain her nutrition and minimize aspiration risk. A feeding tube placement was delayed? until an ICU bed could be secured in the event that she needed to be intubated after the procedure, giving her extremely high risk.? Ultimately the PEG was inserted withough need for ICU admission and she is tolerating tube at maxim rate of 70 recommended by nutrition. Additionally over the coure of time, she has continuously been? followed by [facility] therapy and gained the ability to eat Puree food? with [place] thic liquid. ? 1. Aspiration pneumonitis/ recurrent? aspiration with sepsis, initally treated with ICU as above. Treated with nearly 3 weeks of IV antibiotics, initally 10 days of, then developped repeat aspiration and treated for another week. She is no longer hypoxic, no fever, and WBC is within normal. Strick aspiration precaution to be taking. Acute hypoxic respiratory failure has resolved.? patient has intermittent wpisode of fevers . cxr-: linear atelactasis 11/02res panel-positive [id number], gi panel negative keep having intermittent fevers ,blood cultures pending,leucocytosis trending up ua(11/05) -positive ,urine cultures pending,cxr seems fine(11/05),urine culture grew -gram neg rods. D/w ID- in detail possible UTi -changed zosyn to meropenem start date 11/06. incentive sprio,chest physio,head elevation, nebs to avoid atelactsis 2. Hypernatremia:continue g-tube free water 4. Pulmonary embolism (by history) on Eliquis , while awaiting surgery was changed to Levenox and after the procedure was changed back to Elquis at her usual dose. 5. Schizoaffective disorder -continue home medications Depakote, Seroquel and mirtazepine? at bedtime 6. Acute on chronic macrocytic anemia status post 2 units of packed RBC hematocrit improved but dropped today to 27.2, no active bleeding noted, normal? B12, low folate ?? Continue folic acid 1 mg daily , will add iv folate h/h slowly smoldering down , no gross bleedin given 1 prbc on 11/01 last cbc h/h around 02/10.1. 7. Dysphagia seen by speech therapy--She as on PPN and was followed closely by speech and ultimately improved and was? started puree diet with honey thick liquid, additionally she is to get nutrition through PEG with promote at max goal of 70 ml /hr with 240 free water shoshes q6 hours 8. UTI(multpile organisms) -completed course of antibiotics. 9. Hypothyroidism continue levothyroxine 10. Fluid overload--will consider HCTZ if needed and improve. 11: multiple wounds: please see hospitalist not from 10/19/22 continue wound care ,freq turnin, added surgery eval for left heel ulcer (seems skin peeling)?-Wound was examined by surgery (11/01) and callus easily removed.? The base of the wound is granulating with no evidence of necrotic tissue or underlying abscess.? Recommend continuing silver alginate and dry sterile dressings.? Keep all pressure off heels frequent turnin, incentive sheila,chest physio 12. hypernatremia : free water 250 ml q6hr via gtube hyperkalemia-s/plokelma via gtube. hypernatremia and hyperkalemia seems improved with above tretaments. ongoing inpatient stay need:fuo-? rhodes vs possible urinary source, urine cultures pendin,blood cultures Time Spent With Patient Time: Total time managing care of this patient today ____ minutes. Quality Stroke Does the patient have a stroke diagnosis?: No VTE Prior VTE?: No VTE Risk Level:: Medical - moderate - high VTE Device Contraindication: N/A - Device Ordered VTE Drug Contraindication: N/A - Med Ordered
[2022-11-06 16:25] LABS: Glucose, Whole Blood 109 mg/dL (60-115)
[2022-11-06 20:19] LABS: Glucose, Whole Blood 119 mg/dL (60-115)
[2022-11-06] MEDS: Mirtazapine 7.5 MG TABLET G-TUBE (20:36)
[2022-11-07] VITALS (9 sets, daily range): BP systolic 99–119; BP diastolic 51–66; PULSE 97–107; RESP 18–24; TEMP 36.9–37.6; O2SAT 91–96
[2022-11-07] MEDS: Heparin Sodium,Porcine Flush 50 UNITS, 0.9 % Sodium Chloride Flush 5 ML IVFLUSH (00:25)
[2022-11-07] MEDS: Acetaminophen Supp 650 MG SUPP.RECT PR (00:31)
[2022-11-07] MEDS: Levothyroxine Sodium 50 MCG TABLET G-TUBE (05:27)
[2022-11-07 07:03] LABS: Hematocrit 26.6 % (37.0-47.0); Hemoglobin 7.8 g/dl (12.0-16.0); Mean Corpuscular HGB Conc 29.3 g/dl (31.0-35.0); Mean Corpuscular Volume 102.3 fL (80.0-98.0); NRBC Pct Auto 0.4 /100WBC (0.0-0.2); Platelet Count 206 X10*3/uL (160-400); Red Cell Distribution Width 17.2 % (11.0-16.0); White Blood Count 18.3 X10*3/uL (4.8-10.8)
[2022-11-07 07:19] LABS: Anion Gap 13 (12-20); Blood Urea Nitrogen 42 mg/dL (9-16); Calcium 9.7 mg/dL (8.4-10.2); Carbon Dioxide 25 mmol/L (22-29); Chloride 104 mmol/L (96-108); Creatinine Clr Calc Pharmacy 60.6; Estimated Glomerular Filt Rate 48; Glucose Random 110 mg/dL (60-115); Potassium 4.7 mmol/L (3.3-5.1); Sodium 137 mmol/L (135-145)
[2022-11-07 07:37] LABS: Glucose, Whole Blood 121 mg/dL (60-115)
[2022-11-07] MEDS: Albuterol/Iprat 2.5/0.5MG 3 ML AMPUL.NEB INHALE ×3 (09:11→16:08)
[2022-11-07] MEDS: Folic Acid 1 MG in 0.9 % Sodium Chloride 50 ML 100.4 MG IV (09:34)
[2022-11-07] MEDS: QUEtiapine Fumarate 50 MG TABLET G-TUBE ×3 (09:35→21:35)
[2022-11-07] MEDS: Divalproex Sodium Sprinkles 125 MG CAP.DR.SPR 1000 MG G-TUBE ×2 (09:35→21:35)
[2022-11-07] MEDS: Sodium Bicarbonate 650 MG TABLET G-TUBE ×2 (09:36→21:35)
[2022-11-07] MEDS: Folic Acid 1 MG TABLET 2 MG PO (09:36)
[2022-11-07] MEDS: Famotidine/PF 20 MG/2 ML VIAL IVPUSH ×2 (09:36→21:35)
[2022-11-07] MEDS: Apixaban 2.5 MG TABLET G-TUBE ×2 (09:36→21:36)
[2022-11-07 11:21] LABS: Glucose, Whole Blood 106 mg/dL (60-115)
--- NOTE | 2022-11-07 12:34 | P.PNIM_ITS ---
Subjective Subjective Date of Service: 11/07/22 Interval History: follow up on prolonged hospitalization interval history: non communicative, no fever, no trouble breathing Physical Exam Vital Signs: Vital Signs: Last Vital Signs Temp 98.6 F 11/07/22 11:10 Pulse 104 H 11/07/22 11:10 Resp 20 11/07/22 12:29 BP 115/58 L 11/07/22 11:10 Pulse Ox 92 11/07/22 11:10 O2 Del Method Room Air 11/07/22 11:10 O2 Flow Rate 1 11/06/22 11:08 FiO2 21 10/02/22 07:00 BMI result Body Mass Index 32.1 Objective Data Active Medications Acetaminophen (Acetaminophen Supp 650 Mg Supp.Rect) 650 mg MO Q6H PRN PRN Reason: Fever Last Admin: 11/07/22 00:31 Dose: 650 mg Documented By: AUBREY Albuterol/Ipratropium (Albuterol/Iprat 2.5/0.5mg 3 Ml Ampul.Neb) 3 ml INHALE RQ4H WHILE AWAKE [facility] Last Admin: 11/07/22 12:29 Dose: 3 ml Documented By: ARIAS Apixaban (Apixaban 2.5 Mg Tablet) 2.5 mg G-TUBE BID [facility] Last Admin: 11/07/22 09:36 Dose: 2.5 mg Documented By: LANA Heparin Sodium (Porcine) 50 (units/ Sodium Chloride 5 ml) 0 units IVFLUSH QSHIFT [facility] Last Admin: 11/07/22 09:56 Dose: Not Given Documented By: LANA Non-Admin Reason: no central access Divalproex Sodium (Divalproex Sodium Sprinkles 125 Mg ) 1,000 mg G- TUBE BID [facility] Last Admin: 11/07/22 09:35 Dose: 1,000 mg Documented By: LANA Famotidine (Famotidine/Pf 20 Mg/2 Ml Vial) 20 mg IVPUSH BID [facility] Last Admin: 11/07/22 09:36 Dose: 20 mg Documented By: LANA Folic Acid (Folic Acid 1 Mg Tablet) 2 mg PO DAILY [facility] Last Admin: 11/07/22 09:36 Dose: 2 mg Documented By: LANA Glucose (Glucose Gel 15 Gm Gel..Gram.) 15 gm PO Q15M PRN; Protocol PRN Reason: per Hypoglycemia Standing Ord. Dextrose (D10) 250 mls @ 750 mls/hr IV Q15M PRN; Protocol PRN Reason: per Hypoglycemia Standing Ord. Last Infusion: 11/02/22 21:07 Dose: 0 mls/hr Documented By: DOT Folic Acid 1 mg/ Sodium (Chloride) 50.2 mls @ 100.4 mls/hr IV DAILY [facility] Last Infusion: 11/07/22 10:20 Dose: 0 mls/hr Documented By: LANA Meropenem 1 gm/ Sodium (Chloride) 100 mls @ 200 mls/hr IV Q8H [facility] Last Infusion: 11/07/22 06:04 Dose: 0 mls/hr Documented By: AUBREY Insulin Human Lispro (Insulin Lispro 100 Unit/Ml 3 Ml Vial) 0 unit SUBCUT QIDACHS [facility]; Protocol Last Admin: 11/07/22 11:27 Dose: Not Given Documented By: LANA Non-Admin Reason: No Insulin Coverage Levothyroxine Sodium (Levothyroxine Sodium 50 Mcg Tablet) 50 mcg G-TUBE DAILY@0600 [facility] Last Admin: 11/07/22 05:27 Dose: 50 mcg Documented By: AUBREY Mirtazapine (Mirtazapine 7.5 Mg Tablet) 7.5 mg G-TUBE BEDTIME [facility] Last Admin: 11/06/22 20:36 Dose: 7.5 mg Documented By: ERICKSON Ondansetron HCl (Ondansetron Hcl 4 Mg/2 Ml Vial) 4 mg IVPUSH Q4H PRN PRN Reason: Nausea and Vomiting Last Admin: 10/05/22 14:18 Dose: 4 mg Documented By: MILTON Quetiapine Fumarate (Quetiapine Fumarate 50 Mg Tablet) 50 mg G-TUBE TID [facility] Last Admin: 11/07/22 09:35 Dose: 50 mg Documented By: LANA Sodium Bicarbonate (Sodium Bicarbonate 650 Mg Tablet) 650 mg G-TUBE BID [facility] Last Admin: 11/07/22 09:36 Dose: 650 mg Documented By: LANA Zinc Oxide (Zinc Oxide 20% Ointment 28.35 Gm Tube) 1 appl TOPICAL BID [facility]; Protocol Last Admin: 11/07/22 09:56 Dose: Not Given Documented By: LANA Non-Admin Reason: Previously Administered Labs 11/07/22 06:24 11/07/22 06:24 Labs: Laboratory Results - last 24 hr 11/06/22 11/06/22 11/07/22 16:22 20:14 06:24 MCV 102.3 H MCH 30.0 MCHC 29.3 L RDW 17.2 H Plt Count 206 MPV 12.0 Absolute Nucleated RBC 0.080 H Nucleated RBC % (auto) 0.4 H Anion Gap Estim Creat Clear Calc Estimated GFR POC Glucose 109 119 H Random Glucose Calcium 11/07/22 11/07/22 11/07/22 06:24 07:34 11:17 MCV MCH MCHC RDW Plt Count MPV Absolute Nucleated RBC Nucleated RBC % (auto) Anion Gap 13 Estim Creat Clear Calc 60.6 Estimated GFR 48 POC Glucose 121 H 106 Random Glucose 110 Calcium 9.7 D Microbiology Microbiology Results: Microbiology 11/05/22 Unknown Urine Culture - Final Urine Catheterized - Randall Catheter Pseudomonas aeruginosa 11/05/22 01:30 Blood Culture - Preliminary Blood - Venous No growth after 48 hours. 11/05/22 01:30 Blood Culture - Preliminary Blood - Venous No growth after 48 hours. Assessment and Plan (1) Fever of unknown origin: Status: Acute (2) Coronavirus infection: Status: Acute Plan initially admitted to ICU for pressor support for sepsis due to UTI.? She improved and was discharged from the ICU after 72 hours.? While awaiting to be discharged earlier, she vomitted and developped acute hypoix respiratory failure due to aspiration pneumonia and this raised safety about her PO intake ability and as such, she was started on TPN and? decision was made and agreed upon by her guargian to have a feeding tube to maintain her nutrition and minimize aspiration risk. A feeding tube placement was delayed? until an ICU bed could be secured in the event that she needed to be intubated after the procedure, giving her extremely high risk.? Ultimately the PEG was inserted withough need for ICU admission and she is tolerating tube at maxim rate of 70 recommended by nutrition. Additionally over the coure of time, she has continuously been? followed by [facility] therapy and gained the ability to eat Puree food? with [place] thic liquid. ? 1. Aspiration pneumonitis/ recurrent? aspiration with sepsis, initally treated with ICU as above. Treated with nearly 3 weeks of IV antibiotics, initally 10 days of, then developped repeat aspiration and treated for another week. She is no longer hypoxic, no fever, and WBC is within normal. Strick aspiration precaution to be taking. Acute hypoxic respiratory failure has resolved.? patient has intermittent wpisode of fevers . cxr-: linear atelactasis 11/02res panel-positive [id number], gi panel negative keep having intermittent fevers ,blood cultures pending,leucocytosis trending up ua(11/05) -positive ,urine cultures pending,cxr seems fine(11/05),urine culture grew -gram neg rods. D/w ID- in detail possible UTi -changed zosyn to meropenem start date 11/06. incentive sprio,chest physio,head elevation, nebs to avoid atelactsis 2. Hypernatremia:continue g-tube free water, water 4. Pulmonary embolism (by history) on Eliquis , while awaiting surgery was changed to Levenox and after the procedure was changed back to Elquis at her usual dose. 5. Schizoaffective disorder -continue home medications Depakote, Seroquel and mirtazepine? at bedtime 6. Acute on chronic macrocytic anemia status post 2 units of packed RBC hematocrit improved but dropped today to 27.2, no active bleeding noted, normal? B12, low folate ?? Continue folic acid 1 mg daily , will add iv folate h/h slowly smoldering down , no gross bleedin given 1 prbc on 11/01 last cbc h/h around 02/10.1. 7. Dysphagia seen by speech therapy--She as on PPN and was followed closely by speech and ultimately improved and was? started puree diet with honey thick liquid, additionally she is to get nutrition through PEG with promote at max goal of 70 ml /hr with 240 free water shoshes q6 hours 8. UTI(multpile organisms) -completed course of antibiotics. 9. Hypothyroidism continue levothyroxine 10. Fluid overload--will consider HCTZ if needed and improve. 11: multiple wounds: please see hospitalist not from 10/19/22 continue wound care ,jennifer perkins, added surgery eval for left heel ulcer (seems skin peeling)?-Wound was examined by surgery (11/01) and callus easily removed.? The base of the wound is granulating with no evidence of necrotic tissue or underlying abscess.? Recommend continuing silver alginate and dry sterile dressings.? Keep all pressure off heels frequent turnin, incentive sheila,chest physio 12. hypernatremia : free water 250 ml q6hr via gtube hyperkalemia-s/plokelma via gtube. hypernatremia and hyperkalemia seems improved with above tretaments. ongoing inpatient stay need:fuo-? rhodes vs possible urinary source, urine cultures pendin,blood cultures, plan to discvharge Time Spent With Patient Time: Total time managing care of this patient today ____ minutes. Quality Stroke Does the patient have a stroke diagnosis?: No VTE Prior VTE?: No VTE Risk Level:: Medical - moderate - high VTE Device Contraindication: N/A - Device Ordered VTE Drug Contraindication: N/A - Med Ordered
--- NOTE | 2022-11-07 12:55 | MHC.SPEECHCO ---
Pt declines PO offerings and moistened swab as indicated by turning her head away and clenching her mouth closed. CROCHET MACHINE OPERATOR will continue to follow.
[2022-11-07 16:02] LABS: Glucose, Whole Blood 106 mg/dL (60-115)
--- NOTE | 2022-11-07 19:03 | PC.NURSE ---
New 16Fr cantu cath inserted at 18:30 Balloon inflated with 10mL Normal saline. Patient tolerated well. Upon replacing cantu in patient, a perineal tear was noted. MD black will continue to monitor.
[2022-11-07 19:49] LABS: Glucose, Whole Blood 79 mg/dL (60-115)
[2022-11-07] MEDS: Mirtazapine 7.5 MG TABLET G-TUBE (21:35)
[2022-11-08] VITALS (7 sets, daily range): BP systolic 100–123; BP diastolic 50–60; PULSE 95–104; RESP 20; TEMP 36–37.6; O2SAT 92–93
[2022-11-08] MEDS: Morphine Sulfate 2 MG/ML CARTRIDGE IVPUSH (01:37)
[2022-11-08] MEDS: Levothyroxine Sodium 50 MCG TABLET G-TUBE (05:38)
[2022-11-08 07:39] LABS: Glucose, Whole Blood 108 mg/dL (60-115)
[2022-11-08] MEDS: Folic Acid 1 MG in 0.9 % Sodium Chloride 50 ML 100.4 MG IV (09:22)
[2022-11-08] MEDS: Folic Acid 1 MG TABLET 2 MG PO (09:23)
[2022-11-08] MEDS: Divalproex Sodium Sprinkles 125 MG CAP.DR.SPR 1000 MG G-TUBE ×2 (09:23→22:01)
[2022-11-08] MEDS: Zinc Oxide 20% Ointment 28.35 GM TUBE 1 APPL TOPICAL (09:24)
[2022-11-08] MEDS: QUEtiapine Fumarate 50 MG TABLET G-TUBE ×3 (09:24→22:05)
[2022-11-08] MEDS: Famotidine/PF 20 MG/2 ML VIAL IVPUSH ×2 (09:24→22:03)
[2022-11-08] MEDS: Sodium Bicarbonate 650 MG TABLET G-TUBE ×2 (09:24→22:01)
[2022-11-08] MEDS: Apixaban 2.5 MG TABLET G-TUBE ×2 (09:24→22:02)
[2022-11-08 11:18] LABS: Glucose, Whole Blood 111 mg/dL (60-115)
--- NOTE | 2022-11-08 11:44 | MHC.SL.SWA ---
Speech Pathologist Impression: Oropharyngeal dysphagia; Aspiration on thin liquids- Refer to MBSS report Risk of Aspiration Due to: History of Pneumonia Reduced Cognition Dysphasia Diet Status: No changes Liquid Consistency and Strategies for Safe Swallow: Liquid Intake Recommendation: Supplement Liquid Intake Strategies: Small Sips No Straws Liquids by Teaspoon Only Solid Food Consistency: Dietary Recommendations: Supplemental NDD1/NT Additional Modifications to Solid Foods: Pt has PEG Oral Medication Intake: NPO (Per RN, meds have been given through G-tube) Please contact the pharmacy regarding appropriate crushable or liquid drug formulations that are available whenever modified delivery is recommended. Compensatory Strategies and Precautions to be Taken for Safe Swallow: Sitting Upright (90 deg) Double Swallow No Straw Liquids from Spoon Small Bites and Sips Rate of Ingestion Change Oral Check Avoid Specific Foods Supervision While Eating and Drinking for Safe Swallow: PO with OPERATING ROOM RN Foods to Avoid: Avoid sticky or congealed purees; mixed textures (liquid from puree) Swallowing Recommended Treatments: Gustatory Stimulation Compens. Strategy Educat. Recommendation for Speech: Inpatient Speech Therapy Speech Therapy through Rehab Facility Providing goal is for pt to return to eating by mouth, recommend continuation of speech therapy providing supplemental PO trials of NDD1 &nectar thick. *See 10/23 [facility]P report and recommendations Telephone Technician Clinican/Clinical Fellow: No Supervisory Statement: I have reviewed and agree with the student/clinical fellow's documentation: N/A Speech Language Pathologist: Virginia Holden M.A., OPERATING ROOM RN
--- NOTE | 2022-11-08 13:29 | HO.PM.IMPN ---
Subjective Subjective Date of Service: 11/08/22 Interval History: follow up on prolonged hospitalization interval history: non communicative, no fever, no trouble breathing Physical Exam Vital Signs: Vital Signs: Last Vital Signs Temp 97.5 F 11/08/22 11:11 Pulse 101 H 11/08/22 11:11 Resp 20 11/08/22 11:11 BP 100/54 L 11/08/22 11:11 Pulse Ox 93 11/08/22 11:11 O2 Del Method Room Air 11/08/22 11:11 O2 Flow Rate 1 11/06/22 11:08 FiO2 21 10/02/22 07:00 BMI result Body Mass Index 32.1 Const: Other: Gen:? Awake, no resp distress Lungs:? Bilateral coarse breath sound Heart:? Tachy regular rate and rhythm Abd: soft, non-tender, non-distended, PEG in place Ext:? no cyanosis or rash,pulses present Skin: warm/well-perfused, generally edematous in arms. Neuro: alert, nonverbal, moving all extremities Psych: impaired insight Objective Data Active Medications Acetaminophen (Acetaminophen Supp 650 Mg Supp.Rect) 650 mg SD Q6H PRN PRN Reason: Fever Last Admin: 11/07/22 00:31 Dose: 650 mg Documented By: AUBREY Apixaban (Apixaban 2.5 Mg Tablet) 2.5 mg G-TUBE BID COUNTS INCLUDE 234 BEDS AT THE [facility] Last Admin: 11/08/22 09:24 Dose: 2.5 mg Documented By: LANA Heparin Sodium (Porcine) 50 (units/ Sodium Chloride 5 ml) 0 units IVFLUSH QSHIFT COUNTS INCLUDE 234 BEDS AT THE [facility] Last Admin: 11/08/22 08:38 Dose: Not Given Documented By: LANA Non-Admin Reason: no central access Divalproex Sodium (Divalproex Sodium Sprinkles 125 Mg ) 1,000 mg G-TUBE BID COUNTS INCLUDE 234 BEDS AT THE [facility] Last Admin: 11/08/22 09:23 Dose: 1,000 mg Documented By: LANA Famotidine (Famotidine/Pf 20 Mg/2 Ml Vial) 20 mg IVPUSH BID COUNTS INCLUDE 234 BEDS AT THE [facility] Last Admin: 11/08/22 09:24 Dose: 20 mg Documented By: LANA Folic Acid (Folic Acid 1 Mg Tablet) 2 mg PO DAILY COUNTS INCLUDE 234 BEDS AT THE [facility] Last Admin: 11/08/22 09:23 Dose: 2 mg Documented By: LANA Glucose (Glucose Gel 15 Gm Gel..Gram.) 15 gm PO Q15M PRN; Protocol PRN Reason: per Hypoglycemia Standing Ord. Dextrose (D10) 250 mls @ 750 mls/hr IV Q15M PRN; Protocol PRN Reason: per Hypoglycemia Standing Ord. Last Infusion: 11/02/22 21:07 Dose: 0 mls/hr Documented By: DOT Folic Acid 1 mg/ Sodium (Chloride) 50.2 mls @ 100.4 mls/hr IV DAILY COUNTS INCLUDE 234 BEDS AT THE [facility] Last Infusion: 11/08/22 10:04 Dose: 0 mls/hr Documented By: LANA Meropenem 1 gm/ Sodium (Chloride) 100 mls @ 200 mls/hr IV Q8H COUNTS INCLUDE 234 BEDS AT THE [facility] Last Infusion: 11/08/22 06:19 Dose: 0 mls/hr Documented By: ERICKSON Insulin Human Lispro (Insulin Lispro 100 Unit/Ml 3 Ml Vial) 0 unit SUBCUT QIDACHS COUNTS INCLUDE 234 BEDS AT THE [facility]; Protocol Last Admin: 11/08/22 11:53 Dose: Not Given Documented By: LANA Non-Admin Reason: No Insulin Coverage Levothyroxine Sodium (Levothyroxine Sodium 50 Mcg Tablet) 50 mcg G-TUBE DAILY@0600 COUNTS INCLUDE 234 BEDS AT THE [facility] Last Admin: 11/08/22 05:38 Dose: 50 mcg Documented By: ERICKSON Mirtazapine (Mirtazapine 7.5 Mg Tablet) 7.5 mg G-TUBE BEDTIME COUNTS INCLUDE 234 BEDS AT THE [facility] Last Admin: 11/07/22 21:35 Dose: 7.5 mg Documented By: ERICKSON Ondansetron HCl (Ondansetron Hcl 4 Mg/2 Ml Vial) 4 mg IVPUSH Q4H PRN PRN Reason: Nausea and Vomiting Last Admin: 10/05/22 14:18 Dose: 4 mg Documented By: MILTON Quetiapine Fumarate (Quetiapine Fumarate 50 Mg Tablet) 50 mg G-TUBE TID COUNTS INCLUDE 234 BEDS AT THE [facility] Last Admin: 11/08/22 09:24 Dose: 50 mg Documented By: LANA Sodium Bicarbonate (Sodium Bicarbonate 650 Mg Tablet) 650 mg G-TUBE BID COUNTS INCLUDE 234 BEDS AT THE [facility] Last Admin: 11/08/22 09:24 Dose: 650 mg Documented By: HO.FOSTEKR Zinc Oxide (Zinc Oxide 20% Ointment 28.35 Gm Tube) 1 appl TOPICAL BID DEJUAN; Protocol Last Admin: 11/08/22 09:24 Dose: 1 appl Documented By: FOSTEKR Labs 11/07/22 06:24 11/07/22 06:24 Labs: Laboratory Results - last 24 hr 11/07/22 11/07/22 11/08/22 15:38 19:42 07:21 POC Glucose 106 79 108 11/08/22 11:14 POC Glucose 111 Assessment and Plan (1) Fever of unknown origin: Status: Acute (2) Coronavirus infection: Status: Acute Plan initially admitted to ICU for pressor support for sepsis due to UTI.? She improved and was discharged from the ICU after 72 hours.? While awaiting to be discharged earlier, she vomitted and developped acute hypoix respiratory failure due to aspiration pneumonia and this raised safety about her PO intake ability and as such, she was started on TPN and? decision was made and agreed upon by her guargian to have a feeding tube to maintain her nutrition and minimize aspiration risk. A feeding tube placement was delayed? until an ICU bed could be secured in the event that she needed to be intubated after the procedure, giving her extremely high risk.? Ultimately the PEG was inserted withough need for ICU admission and she is tolerating tube at maxim rate of 70 recommended by nutrition. Additionally over the coure of time, she has continuously been? [facility] and gained the ability to eat Puree food? with [place] thic liquid. ? 1. Aspiration pneumonitis/ recurrent? aspiration with sepsis, initally treated with ICU as above. Treated with nearly 3 weeks of IV antibiotics, initally 10 days of, then developped repeat aspiration and treated for another week. She is no longer hypoxic, no fever, and WBC is within normal. Strick aspiration precaution to be taking. Acute hypoxic respiratory failure has resolved.? patient has intermittent wpisode of fevers . cxr-: linear atelactasis 11/02res panel-positive [id number], gi panel negative keep having intermittent fevers ,blood cultures pending,leucocytosis trending up ua(11/05) -positive ,urine cultures pending,cxr seems fine(11/05),urine culture grew -gram neg rods. D/w ID- in detail possible UTi -changed zosyn to meropenem start date 11/06. incentive sprio,chest physio,head elevation, nebs to avoid atelactsis if remains afebrile, change to PO next day if wbc is down 2. Hypernatremia:continue g-tube free water, water 4. Pulmonary embolism (by history) on Eliquis 5. Schizoaffective disorder -continue home medications Depakote, Seroquel and mirtazepine? at bedtime 6. Acute on chronic macrocytic anemia status post 2 units of packed RBC hematocrit improved but dropped today to 27.2, no active bleeding noted, normal? B12, low folate ?? Continue folic acid 1 mg daily , will add iv folate h/h slowly smoldering down , no gross bleedin given 1 prbc on 11/01 last cbc h/h around 02/10.1. 7. Dysphagia seen by speech therapy--She as on PPN and was followed closely by speech and ultimately improved and was? started puree diet with honey thick liquid, additionally she is to get nutrition through PEG with promote at max goal of 70 ml /hr with 240 free water shoshes q6 hours 8. UTI(multpile organisms) -completed course of antibiotics. 9. Hypothyroidism continue levothyroxine 10. Fluid overload--will consider HCTZ if needed and improve. 11: multiple wounds: please see hospitalist not from 10/19/22 continue wound care ,jennifer perkins, added surgery eval for left heel ulcer (seems skin peeling)?-Wound was examined by surgery (11/01) and callus easily removed.? The base of the wound is granulating with no evidence of necrotic tissue or underlying abscess.? Recommend continuing silver alginate and dry sterile dressings.? Keep all pressure off heels frequent turnin, incentive sheila,chest physio 12. hypernatremia : free water 250 ml q6hr via gtube hyperkalemia-s/plokelma via gtube. hypernatremia and hyperkalemia seems improved with above tretaments. ongoing inpatient stay need:fuo-? rhodes vs possible urinary source, urine cultures pendin,blood cultures, plan to discvharge in next 24 hours Time Spent With Patient Time: Total time managing care of this patient today ____ minutes. Quality Stroke Does the patient have a stroke diagnosis?: No VTE Prior VTE?: No VTE Risk Level:: Medical - moderate - high VTE Device Contraindication: N/A - Device Ordered VTE Drug Contraindication: N/A - Med Ordered
--- NOTE | 2022-11-08 13:41 | MHC.CLN ---
F/U PATIENT TOLERATING TUBE FEEDING AT MAX GOAL RATE PROMOTE AT 70ML/HR WITH 240ML FREE WATER FLUSHES Q 6HRS PROVIDES 1680KCALS (23KCALS/KG), 105G PROTEIN (1.4G/KG), 2369ML TOTAL WATER FROM FORMULA AND FLUSHES (32ML/KG) TF WITH HIGHER PROTEIN TO PROMOTE WOUND HEALING ALSO HAS DIET ORDER; DIET IS PUREED WITH NECTAR THICK LIQUIDS-SPRING WINDER CONTINUES TO FOLLOW PT TAKING VERY LITTLE PO-TF PROVIDES 100% OF ESTIMATED NEEDS MONITOR TOLERANCE, RESIDUALS AND LYTES
[2022-11-08 15:12] LABS: Hematocrit 26.1 % (37.0-47.0); Hemoglobin 7.8 g/dl (12.0-16.0); Mean Corpuscular HGB Conc 29.9 g/dl (31.0-35.0); Mean Corpuscular Hemoglobin 29.9 pg (27.0-33.0); Mean Platelet Volume 12.7 fL (9.4-12.3); NRBC Pct Auto 0.9 /100WBC (0.0-0.2); PLT CLUMP 1; Red Blood Count 2.61 X10*6/uL (4.20-5.50); Red Cell Distribution Width 17.3 % (11.0-16.0)
[2022-11-08 15:16] LABS: White Blood Count 18.7 X10*3/uL (4.8-10.8)
[2022-11-08 16:08] LABS: Platelet Count 170 X10*3/uL (160-400)
[2022-11-08 16:28] LABS: Glucose, Whole Blood 107 mg/dL (60-115)
[2022-11-08 19:41] LABS: Anion Gap 15 (12-20); Blood Urea Nitrogen 43 mg/dL (9-16); Carbon Dioxide 28 mmol/L (22-29); Chloride 104 mmol/L (96-108); Creatinine Clr Calc Pharmacy 59.1; Estimated Glomerular Filt Rate 46; Glucose Random 101 mg/dL (60-115); Potassium 5.3 mmol/L (3.3-5.1); Sodium 142 mmol/L (135-145)
[2022-11-08 20:02] LABS: Glucose, Whole Blood 122 mg/dL (60-115)
[2022-11-08] MEDS: Mirtazapine 7.5 MG TABLET G-TUBE (22:01)
[2022-11-09] VITALS (7 sets, daily range): BP systolic 93–119; BP diastolic 49–64; PULSE 93–107; RESP 18–20; TEMP 36.4–37.4; O2SAT 91–97
[2022-11-09] MEDS: Levothyroxine Sodium 50 MCG TABLET G-TUBE (06:47)
[2022-11-09] MEDS: OLANZapine 10 MG VIAL IM (06:56)
[2022-11-09 07:10] LABS: Hematocrit 26.4 % (37.0-47.0); Hemoglobin 7.7 g/dl (12.0-16.0); Mean Corpuscular HGB Conc 29.2 g/dl (31.0-35.0); Mean Corpuscular Hemoglobin 29.7 pg (27.0-33.0); Mean Corpuscular Volume 101.9 fL (80.0-98.0); Mean Platelet Volume 11.7 fL (9.4-12.3); NRBC Pct Auto 0.8 /100WBC (0.0-0.2); Platelet Count 245 X10*3/uL (160-400); Red Blood Count 2.59 X10*6/uL (4.20-5.50); White Blood Count 18.8 X10*3/uL (4.8-10.8)
[2022-11-09 07:16] LABS: Glucose, Whole Blood 115 mg/dL (60-115)
[2022-11-09] MEDS: Famotidine/PF 20 MG/2 ML VIAL IVPUSH ×2 (10:32→21:17)
[2022-11-09] MEDS: QUEtiapine Fumarate 50 MG TABLET G-TUBE ×3 (10:38→21:16)
[2022-11-09] MEDS: Apixaban 2.5 MG TABLET G-TUBE ×2 (10:38→21:16)
[2022-11-09] MEDS: Folic Acid 1 MG TABLET 2 MG PO (10:38)
[2022-11-09] MEDS: Sodium Bicarbonate 650 MG TABLET G-TUBE ×2 (10:38→21:16)
[2022-11-09] MEDS: Divalproex Sodium Sprinkles 125 MG CAP.DR.SPR 1000 MG G-TUBE ×2 (10:38→21:17)
--- NOTE | 2022-11-09 10:43 | P.PNIM_ITS ---
Subjective Subjective Date of Service: 11/10/22 Interval History: follow up on prolonged hospitalization interval history: non communicative, no fever, no trouble breathing WBC remains high Review of Systems no new events overnight-has episode of fever patient awake. Physical Exam Vital Signs: Vital Signs: Last Vital Signs Temp 98.5 F 11/09/22 07:40 Pulse 102 H 11/09/22 07:40 Resp 19 11/09/22 07:40 BP 119/64 11/09/22 07:40 Pulse Ox 97 11/09/22 07:40 O2 Del Method Room Air 11/09/22 07:40 O2 Flow Rate 1 11/06/22 11:08 FiO2 21 10/02/22 07:00 BMI result Body Mass Index 32.1 Const: Other: Gen:? Awake, no resp distress Lungs:? Bilateral coarse breath sound Heart:? Tachy regular rate and rhythm Abd: soft, non-tender, non-distended, PEG in place Ext:? no cyanosis or rash,pulses present Skin: warm/well-perfused, generally edematous in arms. Neuro: alert, nonverbal, moving all extremities Psych: impaired insight Objective Data Active Medications Acetaminophen (Acetaminophen Supp 650 Mg Supp.Rect) 650 mg FL Q6H PRN PRN Reason: Fever Last Admin: 11/07/22 00:31 Dose: 650 mg Documented By: AUBREY Apixaban (Apixaban 2.5 Mg Tablet) 2.5 mg G-TUBE BID COUNT INCLUDES THE [facility] Last Admin: 11/08/22 22:02 Dose: 2.5 mg Documented By: CAROLIN Heparin Sodium (Porcine) 50 (units/ Sodium Chloride 5 ml) 0 units IVFLUSH QSHIFT COUNT INCLUDES THE [facility] Last Admin: 11/09/22 04:40 Dose: Not Given Documented By: CAROLIN Non-Admin Reason: pt doesnt have a central line Divalproex Sodium (Divalproex Sodium Sprinkles 125 Mg ) 1,000 mg G- TUBE BID COUNT INCLUDES THE [facility] Last Admin: 11/08/22 22:01 Dose: 1,000 mg Documented By: CAROLIN Famotidine (Famotidine/Pf 20 Mg/2 Ml Vial) 20 mg IVPUSH BID COUNT INCLUDES THE [facility] Last Admin: 11/08/22 22:03 Dose: 20 mg Documented By: CAROLIN Folic Acid (Folic Acid 1 Mg Tablet) 2 mg PO DAILY COUNT INCLUDES THE [facility] Last Admin: 11/08/22 09:23 Dose: 2 mg Documented By: LANA Glucose (Glucose Gel 15 Gm Gel..Gram.) 15 gm PO Q15M PRN; Protocol PRN Reason: per Hypoglycemia Standing Ord. Dextrose (D10) 250 mls @ 750 mls/hr IV Q15M PRN; Protocol PRN Reason: per Hypoglycemia Standing Ord. Last Infusion: 11/02/22 21:07 Dose: 0 mls/hr Documented By: DOT Folic Acid 1 mg/ Sodium (Chloride) 50.2 mls @ 100.4 mls/hr IV DAILY COUNT INCLUDES THE [facility] Last Infusion: 11/08/22 10:04 Dose: 0 mls/hr Documented By: LANA Meropenem 1 gm/ Sodium (Chloride) 100 mls @ 200 mls/hr IV Q8H COUNT INCLUDES THE [facility] Last Admin: 11/09/22 06:46 Dose: 200 mls/hr Documented By: CAROLIN Insulin Human Lispro (Insulin Lispro 100 Unit/Ml 3 Ml Vial) 0 unit SUBCUT QIDACHS COUNT INCLUDES THE [facility]; Protocol Last Admin: 11/09/22 08:34 Dose: Not Given Documented By: MOJGAN Non-Admin Reason: No Insulin Coverage Levothyroxine Sodium (Levothyroxine Sodium 50 Mcg Tablet) 50 mcg G-TUBE DAILY@0600 COUNT INCLUDES THE [facility] Last Admin: 11/09/22 06:47 Dose: 50 mcg Documented By: CAROLIN Mirtazapine (Mirtazapine 7.5 Mg Tablet) 7.5 mg G-TUBE BEDTIME COUNT INCLUDES THE [facility] Last Admin: 11/08/22 22:01 Dose: 7.5 mg Documented By: CAROLIN Ondansetron HCl (Ondansetron Hcl 4 Mg/2 Ml Vial) 4 mg IVPUSH Q4H PRN PRN Reason: Nausea and Vomiting Last Admin: 10/05/22 14:18 Dose: 4 mg Documented By: MILTON Quetiapine Fumarate (Quetiapine Fumarate 50 Mg Tablet) 50 mg G-TUBE TID COUNT INCLUDES THE [facility] Last Admin: 11/08/22 22:05 Dose: 50 mg Documented By: CAROLIN Sodium Bicarbonate (Sodium Bicarbonate 650 Mg Tablet) 650 mg G-TUBE BID COUNT INCLUDES THE [facility] Last Admin: 05/24/23 22:01 Dose: 650 mg Documented By: CAROLIN Zinc Oxide (Zinc Oxide 20% Ointment 28.35 Gm Tube) 1 appl TOPICAL BID DEJUAN; Protocol Last Admin: 11/08/22 22:35 Dose: Not Given Documented By: CAROLIN Non-Admin Reason: wound care done today Labs 11/09/22 06:04 11/08/22 16:08 Labs: Laboratory Results - last 24 hr 11/08/22 11/08/22 11/08/22 11:14 14:26 16:08 MCV 100.0 H MCH 29.9 MCHC 29.9 L RDW 17.3 H Plt Count 170 MPV 12.7 H Absolute Nucleated RBC 0.160 H Nucleated RBC % (auto) 0.9 H Anion Gap 15 Estim Creat Clear Calc 59.1 Estimated GFR 46 POC Glucose 111 Random Glucose 101 Calcium 10.0 11/08/22 11/08/22 11/09/22 16:24 19:58 06:04 MCV 101.9 H MCH 29.7 MCHC 29.2 L RDW 17.0 H Plt Count 245 D MPV 11.7 Absolute Nucleated RBC 0.160 H Nucleated RBC % (auto) 0.8 H Anion Gap Estim Creat Clear Calc Estimated GFR POC Glucose 107 122 H Random Glucose Calcium 11/09/22 07:12 MCV MCH MCHC RDW Plt Count MPV Absolute Nucleated RBC Nucleated RBC % (auto) Anion Gap Estim Creat Clear Calc Estimated GFR POC Glucose 115 Random Glucose Calcium Microbiology Microbiology Results: Microbiology 11/03/22 21:59 Blood Culture - Final Blood - Venous No growth after 5 days. 11/03/22 21:59 Blood Culture - Final Blood - Venous No growth after 5 days. Assessment and Plan (1) Coronavirus infection: Status: Acute (2) Fever of unknown origin: Status: Acute (3) Dysphagia: Status: Acute Plan initially admitted to ICU for pressor support for sepsis due to UTI.? She improved and was discharged from the ICU after 72 hours.? While awaiting to be discharged earlier, she vomitted and developped acute hypoix respiratory failure due to aspiration pneumonia and this raised safety about her PO intake ability and as such, she was started on TPN and? decision was made and agreed upon by her guargian to have a feeding tube to maintain her nutrition and minimize aspiration risk. A feeding tube placement was delayed? until an ICU bed could be secured in the event that she needed to be intubated after the procedure, giving her extremely high risk.? Ultimately the PEG was inserted withough need for ICU admission and she is tolerating tube at maxim rate of 70 recommended by nutrition. Additionally over the coure of time, she has continuously been? followed by [facility] therapy and gained the ability to eat Puree food? with [place] thic liquid. ? Aspiration pneumonitis/ recurrent? aspiration with sepsis, initally treated with ICU as above. Treated with nearly 3 weeks of IV antibiotics, initally 10 days of, then developped repeat aspiration and treated for another week. She is no longer hypoxic, no fever, and WBC is within normal. Strict aspiration precaution to be taking. Acute hypoxic respiratory failure has resolved.? patient has intermittent wpisode of fevers . cxr-: linear atelactasis 11/02res panel-positive [id number], gi panel negative keep having intermittent fevers ,blood cultures pending,leucocytosis trending up ua(11/05) -positive ,urine cultures pending,cxr seems fine(11/05),urine culture grew -gram neg rods. D/w ID- in detail possible UTi -changed zosyn to meropenem start date 11/06. incentive sprio,chest physio,head elevation, nebs to avoid atelactsis if remains afebrile, WBC remains high and concerning, will continue Abx, and monitor wBC till trending down Hypernatremia:continue g-tube free water, water Mild hyperkalemia--5.3 monitor Pulmonary embolism (by history) on Eliquis Schizoaffective disorder -continue home medications Depakote, Seroquel and mirtazepine? at bedtime Acute on chronic macrocytic anemia status post 2 units of packed RBC hematocrit improved but dropped today to 27.2, no active bleeding noted, normal? B12, low folate ?? Continue folic acid 1 mg daily , will add iv folate h/h slowly smoldering down , no gross bleeding given 1 prbc on 11/01 last cbc h/h around 02/10.1. Dysphagia seen by speech therapy--She as on PPN and was followed closely by speech and ultimately improved and was? started puree diet with honey thick liquid, additionally she is to get nutrition through PEG with promote at max goal of 70 ml /hr with 240 free water shoshes q6 hours UTI(multpile organisms) -completed course of antibiotics. Hypothyroidism continue levothyroxine Fluid overload--will consider HCTZ if needed and improve. multiple wounds: please see hospitalist not from 10/19/22 continue wound care ,freq turnin, added surgery eval for left heel ulcer (seems skin peeling)?-Wound was examined by surgery (11/01) and callus easily removed.? The base of the wound is granulating with no evidence of necrotic tissue or underlying abscess.? Recommend continuing silver alginate and dry sterile dressings.? Keep all pressure off heels frequent turnin, incentive sheila,chest physio hypernatremia : free water 250 ml q6hr via gtube hyperkalemia-s/plokelma via gtube. hypernatremia and hyperkalemia seems improved with above tretaments. ongoing inpatient stay need:fuo-? rhodes vs possible urinary source, urine cultures pendin,blood cultures, plan to discvharge in next 24 hours Time Spent With Patient Time: Total time managing care of this patient today ____ minutes. Quality Stroke Does the patient have a stroke diagnosis?: No VTE Prior VTE?: No VTE Risk Level:: Medical - moderate - high VTE Device Contraindication: N/A - Device Ordered VTE Drug Contraindication: N/A - Med Ordered
[2022-11-09] MEDS: Folic Acid 1 MG in 0.9 % Sodium Chloride 50 ML 100.4 MG IV (10:52)
--- NOTE | 2022-11-09 10:52 | PC.NURSE ---
per report Promote tube feeding was unavailable. this nurse restarted tube feeding at 20ml/hr and will increase by 10ml every 4hrs until max rate of 70. tube feeding started at 10:54
--- NOTE | 2022-11-09 11:13 | MHC.CM.PN ---
EMR REVIEWED, PER HOSPITALIST PT WILL NOT BE CLEARED FOR D/C D/T ELEVATED WBC 18.8 TODAY, SNF UPDATED AND CM WILL CONT TO FOLLOW D/C NEEDS.
[2022-11-09 11:19] LABS: Glucose, Whole Blood 78 mg/dL (60-115)
--- NOTE | 2022-11-09 14:57 | PC.NURSE ---
14:57 feeding increased by 10ml per protocol from. current rate: 30ml/hr.
[2022-11-09 15:12] LABS: Glucose, Whole Blood 80 mg/dL (60-115)
[2022-11-09 21:10] LABS: Glucose, Whole Blood 90 mg/dL (60-115)
[2022-11-09] MEDS: Mirtazapine 7.5 MG TABLET G-TUBE (21:18)
[2022-11-09] MEDS: Zinc Oxide 20% Ointment 28.35 GM TUBE 1 APPL TOPICAL (21:18)
[2022-11-10] VITALS: PULSE 92; RESP 18; TEMP 37; O2SAT 92
[2022-11-10] MEDS: Heparin Sodium,Porcine Flush 50 UNITS, 0.9 % Sodium Chloride Flush 5 ML IVFLUSH (00:33)
[2022-11-10 03:57] VITALS: BP 110/53; PULSE 91; RESP 18; TEMP 36.5; O2SAT 90
[2022-11-10] MEDS: Levothyroxine Sodium 50 MCG TABLET G-TUBE (04:57)
[2022-11-10 07:00] VITALS: O2SAT 94
[2022-11-10 07:22] LABS: Glucose, Whole Blood 115 mg/dL (60-115)
[2022-11-10 07:50] VITALS: BP 112/56; PULSE 95; RESP 20; TEMP 37.1; O2SAT 92
[2022-11-10] MEDS: Famotidine/PF 20 MG/2 ML VIAL IVPUSH (09:22)
[2022-11-10] MEDS: Folic Acid 1 MG in 0.9 % Sodium Chloride 50 ML 100.4 MG IV (09:26)
[2022-11-10] MEDS: QUEtiapine Fumarate 50 MG TABLET G-TUBE ×2 (09:33→14:30)
[2022-11-10] MEDS: Apixaban 2.5 MG TABLET G-TUBE (09:33)
[2022-11-10] MEDS: Sodium Bicarbonate 650 MG TABLET G-TUBE (09:33)
[2022-11-10] MEDS: Folic Acid 1 MG TABLET 2 MG PO (09:33)
[2022-11-10] MEDS: Divalproex Sodium Sprinkles 125 MG CAP.DR.SPR 1000 MG G-TUBE (09:33)
[2022-11-10 09:36] LABS: Hematocrit 24.9 % (37.0-47.0); Hemoglobin 7.4 g/dl (12.0-16.0); Mean Corpuscular HGB Conc 29.7 g/dl (31.0-35.0); Mean Corpuscular Hemoglobin 30.1 pg (27.0-33.0); Mean Corpuscular Volume 101.2 fL (80.0-98.0); Mean Platelet Volume 11.2 fL (9.4-12.3); Platelet Count 270 X10*3/uL (160-400); Red Blood Count 2.46 X10*6/uL (4.20-5.50)
--- NOTE | 2022-11-10 10:20 | MHC.CLN ---
F/U PATIENT TOLERATING TUBE FEEDING AT MAX GOAL RATE PROMOTE AT 70ML/HR WITH 240ML FREE WATER FLUSHES Q 6HRS PROVIDES 1680KCALS (23KCALS/KG), 105G PROTEIN (1.4G/KG), 2369ML TOTAL WATER FROM FORMULA AND FLUSHES (32ML/KG) TF WITH HIGHER PROTEIN TO PROMOTE WOUND HEALING MONITOR TOLERANCE, RESIDUALS AND LYTES
[2022-11-10 11:18] VITALS: BP 124/56; PULSE 92; RESP 20; TEMP 36.2; O2SAT 92
[2022-11-10 11:24] LABS: Glucose, Whole Blood 93 mg/dL (60-115)
--- NOTE | 2022-11-10 11:33 | MHC.CM.PN ---
PT MEDICALLTY CLEARED FOR D/C BACK TO [facility], CM ATTEMPTED TO CONTACT PT'S GUARDIAN QUINN IGLESIAS AT NUMBER ON FILE, IMM TO BE DELIVERED VIA CERTIFIED MAIL, [facility] FOR BLS TRANSPORT
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
--- NOTE | 2022-11-10 12:22 | MHC.SLORD ---
Speech Language Pathology Order Status: MULTIGRAPHER attempted to see pt for dysphagia tx this morning. Pt clenching mouth shut, refusing oral care, producing increased vocalizations. Pt refused to participate this date. Per chart review, pt has been medically cleared for d/c. Please refer to MULTIGRAPHER d/c summary for recommendations.
--- NOTE | 2022-11-10 12:28 | PC.NURSE ---
dressing change done around 12pm: left heel - stage II ; silver alginate, gauze wrapped. right heel - unstageable; silver alginate, gauze wrapped. right posterior knee - stage II ; silver alginate, gauze wrapped.
--- NOTE | 2022-11-10 17:34 | PC.NURSE ---
pt at baseline, alert, IV out, per facility request if she went to [facility] with a cantu then send her back here with one and we can pull it if they don't want it . report given to EMS and recieving facility - SUKI Whitaker.
== END 2022-11-10 17:00 | DRG 871 ==
LOC: HO.ED 16:45 → HO.EDOVER 16:59 → HO.ICU 17:03 → HO.IMC 10-03 16:14
PROVIDERS: Family Medicine; Hospitalist; Internal Medicine; Internal Medicine Pulmonary Disease; Nurse Practitioner Family; Physician Assistant Medical; Student in an Organized Health Care Education/Training Program; Surgery; Admitting Provider Internal Medicine Cardiovascular Disease; Emergency Provider Emergency Medicine; PCP Internal Medicine; Visit Provider Internal Medicine
PROC: 0DH63UZ Insertion of Feeding Device into Stomach, Percutaneous Approach (ICD-10-PCS; CPT 43246; principal; 2022-10-26 07:30)
DX: A41.9 Sepsis, unspecified organism (principal); G93.41 Metabolic encephalopathy; J69.0 Pneumonitis due to inhalation of food and vomit; R65.21 Severe sepsis with septic shock; J96.01 Acute respiratory failure with hypoxia; J91.8 Pleural effusion in other conditions classified elsewhere; J98.11 Atelectasis; N39.0 Urinary tract infection, site not specified; L03.115 Cellulitis of right lower limb; E87.0 Hyperosmolality and hypernatremia; E87.4 Mixed disorder of acid-base balance; F05 Delirium due to known physiological condition; E87.1 Hypo-osmolality and hyponatremia; T82.898A Other specified complication of vascular prosthetic devices, implants and grafts, initial encounter; I12.9 Hypertensive chronic kidney disease with stage 1 through stage 4 chronic kidney disease, or unspecified chronic kidney disease; N18.30 Chronic kidney disease, stage 3 unspecified; E86.0 Dehydration; E88.09 Other disorders of plasma-protein metabolism, not elsewhere classified; D63.1 Anemia in chronic kidney disease; F79 Unspecified intellectual disabilities; L89.510 Pressure ulcer of right ankle, unstageable; E87.6 Hypokalemia; R00.0 Tachycardia, unspecified; F25.9 Schizoaffective disorder, unspecified; R13.10 Dysphagia, unspecified; R73.9 Hyperglycemia, unspecified; Z74.01 Bed confinement status; E87.5 Hyperkalemia; E53.8 Deficiency of other specified B group vitamins; L89.620 Pressure ulcer of left heel, unstageable; D53.9 Nutritional anemia, unspecified; B97.29 Other coronavirus as the cause of diseases classified elsewhere; E87.70 Fluid overload, unspecified; B95.62 Methicillin resistant Staphylococcus aureus infection as the cause of diseases classified elsewhere; B96.4 Proteus (mirabilis) (morganii) as the cause of diseases classified elsewhere; L89.610 Pressure ulcer of right heel, unstageable; Y74.1 Therapeutic (nonsurgical) and rehabilitative general hospital and personal-use devices associated with adverse incidents; L89.152 Pressure ulcer of sacral region, stage 2; L89.890 Pressure ulcer of other site, unstageable; Z86.711 Personal history of pulmonary embolism; Z79.01 Long term (current) use of anticoagulants; Z79.899 Other long term (current) drug therapy
CPT/HCPCS: 36410; 36415; 70450; 71045; 73620; 74230; 80048; 80053; 80202; 81001; 82040; 82140; 82272; 82565; 82607; 82746; 82803; 82947; 83036; 83605; 83735; 83935; 84100; 84132; 84295; 84300; 84443; 84478; 84484; 85007; 85014; 85018; 85025; 85027; 85610; 86140; 86850; 86900; 86901; 86923; 87040; 87070; 87076; 87077; 87086; 87088; 87147; 87186; 87205; 87507; 87633; 87635; 92526; 92610; 92611; 93005; 93971; 94640; 94660; 99285; C1758; J0690; J1170; J1642; J1643; J1650; J2060; J2185; J2270; J2405; J2543; J3010; J3370; J3475; P9016; P9047

== ENCOUNTER 2022-12-24 07:05 | Inpatient (IN) | payer MEDICARE, MEDICAID, SELFPAY ==
[2022-12-24] VITALS (15 sets, daily range): BP systolic 89–119; BP diastolic 39–69; PULSE 81–106; RESP 12–22; TEMP 36.5–38.1; O2SAT 94–98
--- NOTE | ~2022-12-24 | IR_ITS ---
Please see combined fluoroscopy report from the same day.
--- NOTE | ~2022-12-24 | IR_ITS ---
PROCEDURE: IR INSERTION OF PICC CLINICAL INFORMATION: Foot infection. Long-term IV antibiotic requirement COMPARISON: None available. TECHNIQUE: Informed consent was obtained by the radiology radiology nurse Aicha Garcia. All elements of maximal sterile barrier technique followed including use of cap, mask, sterile gown, sterile gloves, a sterile full body drape and hand hygiene. Also followed skin preparation with 2% chlorhexidine for cutaneous antisepsis, and sterile ultrasound preparation with sterile gel and probe cover when applicable. The right arm was prepped and draped in the usual sterile fashion. The skin and soft tissues were anesthetized with 1% lidocaine plain. Using ultrasound guidance, right basilic vein access was obtained. Over an 018 wire and through a peel-away sheath, a 5 Uzbek double-lumen PICC line was positioned. Catheter length is 43 cm. Fluoroscopy time 0.5 minutes. DAP 41 cgy per centimeter squared. One saved ultrasound image. No saved fluoroscopic image. Real-time ultrasound guidance was used to document vein patency and for needle entry. A formal ultrasound picture was recorded. FINDINGS: There is a right upper extremity PICC line with tip projecting over the cavoatrial junction. IR/IR cvc insert peripheral IMPRESSION: Right upper extremity 5 Uzbek double-lumen PICC line placement.
--- NOTE | 2022-12-24 07:29 | ED.FEMALEGU ---
HPI - Female Genitourinary General Chief complaint: Urogenital-Male Stated complaint: Blood in urine per EMS Time Seen by Provider: 12/24/22 07:18 Source: patient and EMS Mode of arrival: EMS Limitations: altered mental status History of Present Illness HPI Narrative: 62 yo female from a SNF with past medical history of intellectual disability, HLD, seizures, hypothyroidism, chronic kidney disease, PE on Eliquis, schizoaffective disorder, hypertension, multiple pressure ulcers, UTIs with chronic Randall, recent prolonged hospital admission (09/29-11/10 for aspiration PNA, sepsis, w/ PEG tube placement) here with gross hematuria noted from Randall bag this morning by [facility] staff. On arrival patient is febrile. Patient unable to provide history of present illness, review of systems due to baseline mental status Related Data Home Medications Medication Instructions Recorded Confirmed apixaban 2.5 mg tablet (Eliquis) 2.5 mg feeding tube BID 01/02/22 12/24/22 atorvastatin 10 mg tablet 10 mg feeding tube DAILY 01/02/22 12/24/22 lactulose 10 gram/15 mL oral 20 g feeding tube BID 01/02/22 12/24/22 solution (Enulose) mirtazapine 7.5 mg tablet 7.5 mg feeding tube DAILY 01/02/22 12/24/22 quetiapine 50 mg tablet 50 mg feeding tube TID 01/02/22 12/24/22 trazodone 100 mg tablet 200 mg feeding tube BID 01/02/22 12/24/22 ascorbic acid (vitamin C) 1,000 mg 1,000 mg feeding tube BID 09/29/22 12/24/22 tablet (Vitamin C) bisacodyl 10 mg rectal suppository 10 mg WV DAILY PRN Constipation 09/29/22 12/24/22 tramadol 50 mg tablet 50 mg feeding tube Q12H PRN Pain 09/29/22 12/24/22 acetaminophen 160 mg/5 mL oral 960 mg feeding tube TID 12/24/22 12/24/22 elixir amino acids-protein hydrolysate 15 30 ea feeding tube BID 12/24/22 12/24/22 gram-100 kcal/30 mL oral liquid doxycycline hyclate 100 mg tablet 100 mg feeding tube BID 12/24/22 12/24/22 levothyroxine 100 mcg tablet 100 mcg feeding tube DAILY@0630 12/24/22 12/24/22 sodium phosphates 19 gram-7 118 ml WV DAILY PRN Constipation 12/24/22 12/24/22 gram/118 mL enema (Fleet Enema) valproic acid (as sodium salt) 250 1,000 mg feeding tube BID 12/24/22 12/24/22 mg/5 mL (5 mL) oral solution Allergies Allergy/AdvReac Type Severity Reaction Status Date / Time aspirin Allergy Unknown Verified 12/24/22 07:25 chlorproethazine Allergy Unknown Verified 12/24/22 07:25 codeine Allergy Unknown Verified 12/24/22 07:25 guaifenesin Allergy Unknown Verified 12/24/22 07:25 Penicillins Allergy Unknown Verified 12/24/22 07:25 phenytoin Allergy Unknown Verified 12/24/22 07:25 potassium [From Potassimin] Allergy Unknown Verified 12/24/22 07:25 Review of Systems Review of Systems: Yes Unobtainable due to mental status PMFSH Past Medical History Attestation statement: The following information was validated with the patient. 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 Hypertension Intellectual disability Pressure sore on ankle Pulmonary embolism Schizoaffective disorder Social History Social History Household Members: Unknown / Unable to assess Housing: Unknown / Unable to assess Unable to assess alcohol history related to: Unable to respond Alcohol intake: unknown Patient Tobacco Use Status: Tobacco use Unknown Use of substances other than those prescribed or required for medical reasons: Unknown Advance Directives: No Advance Directives Information Provided: No service: No Current occupational status: disabled Physical Exam Vital Signs: Vital Signs: Last Vital Signs Temp 97.7 F 12/24/22 11:25 Pulse 88 12/24/22 12:46 Resp 18 12/24/22 12:46 BP 109/61 12/24/22 12:46 Pulse Ox 98 12/24/22 12:46 O2 Del Method Room Air 12/24/22 12:46 O2 Flow Rate 2 12/24/22 10:27 BMI result Body Mass Index 30.0 Const: Other: Patient alert, groaning General: alert Limitations: altered mental status HEENT: Other: Tacky MM Head: Yes normal to inspection Ears: hearing grossly normal bilaterally General nose exam: Normal external nose present Face and sinus: Yes normal facial exam Mouth: Normal oral and palatal mucosa present Throat: Yes posterior oropharynx normal Eyes: General: appearance normal, both eyes and all related structures Pupils: Equal, round and reactive pupils present Neck: Neck: Yes normal visual inspection Chest: Chest palpation & inspection: normal inspection of the chest Resp: Effort & Inspection: normal respiratory effort Auscultation: clear to auscultation bilaterally Cardio: Rate: regular rate Rhythm: regular rhythm Peripheral pulses: Peripheral pulses 2+ throughout GI: Inspection: Yes normal to inspection Palpation (GI): Soft to palpation and nontender Auscultation: normal bowel sounds Back/Spine/Pelvis: Thoracic/Lumbar Spine: thoracic and lumbar spine normal to inspection Skin: Other: RIGHT buttocks LEFT buttocks General skin exam: no rashes or lesions noted Neuro: General: moves all extremities, no focal motor deficits and normal sensation to monofilament Cranial nerves: Yes Equal, round and reactive pupils present Extrem: Other: +multiple wounds Course Course Course Narrative: 1120- Patient has had 2 low blood pressure. She is obese. Her IBW is 66kg. Will give additional 1L NS prior to admission. Reevaluation(s) Reevaluation #1: 1230-patient has had had several subsequent blood pressures which are normotensive. Will admit to medicine Medications Administered Discontinued Medications Generic Name Dose Route Start Last Admin Trade Name Adamq PRN Reason Stop Dose Admin Acetaminophen 650 mg 12/24/22 07:49 12/24/22 07:56 Acetaminophen Supp 650 Mg Supp.Rect WV 12/24/22 07:50 650 mg ONCE ONE Administration Sodium Chloride 1,000 mls @ 999 mls/hr 12/24/22 07:37 12/24/22 10:25 Ns IV 12/24/22 08:37 Infused .Q1H1M STA Infusion Cefepime HCl 2 gm/ Sodium 50 mls @ 100 mls/hr 12/24/22 07:37 12/24/22 08:35 Chloride IV 12/24/22 08:06 Infused ONCE ONE Infusion Vancomycin HCl 2,000 mg in 500 mls @ 250 mls/hr 12/24/22 09:43 12/24/22 12:36 Vancomycin/Ns IV 12/24/22 11:42 Infused ONCE ONE Infusion Sodium Chloride 1,000 mls @ 999 mls/hr 12/24/22 11:18 12/24/22 12:36 Ns IV 12/24/22 12:18 Infused .Q1H1M STA Infusion Iohexol 85 ml 12/24/22 08:46 12/24/22 08:47 Iohexol 350 Mg/Ml 100 Ml Infus..Btl IV 12/24/22 08:47 85 ml ONCE ONE Administration Medical Decision Making Medical Decision Making MDM Narrative: 62 yo female from a SNF with past medical history of intellectual disability, HLD, seizures, hypothyroidism, chronic kidney disease, PE on Eliquis, schizoaffective disorder, hypertension, multiple pressure ulcers, UTIs with chronic Randall, recent prolonged hospital admission (09/29-11/10 for aspiration PNA, sepsis, w/ PEG tube placement) here with gross hematuria noted from Randall bag this morning by [facility] staff. On arrival patient is febrile. Patient unable to provide history of present illness, review of systems due to baseline mental status. Patient has gross hematuria in the Randall bag. Will need labs including blood cultures and lactic acid, EKG, COVID screen, CT abdomen and pelvis, UA. At this time infection is suspected. Antibiotics ordered. Fluids and Tylenol ordered. Anticipate admission. Patient is full code Differential Diagnosis Differential Diagnoses: The differential diagnosis associated with the presentation includes Hematuria, UTI, pyelonephritis, renal colic, osteomyeltiis Admission/Observation Consideration of admission/observation: Escalation of care including admission/observation considered fever, leukocytosis, uti, CT concerning for osteo necessitating admission for IV abx Consult Healthcare Provider Management of the patient was discussed with: Hospitalist Spoke to Edelmira MENDEZ who accepted admission Lab Data [facility] Lab Attestation statement: I reviewed the patient's lab results. 12/24/22 07:45 12/24/22 07:45 Labs: Lab Results 12/24/22 12/24/22 12/24/22 Range/Units 07:45 07:45 07:45 WBC 12.1 H (4.8-10.8) X10*3/uL RBC 3.04 L D (4.20-5.50) X10*6/uL Hgb 8.7 L (12.0-16.0) g/dl Hct 29.7 L (37.0-47.0) % MCV 97.7 (80.0-98.0) fL MCH 28.6 (27.0-33.0) pg MCHC 29.3 L (31.0-35.0) g/dl RDW 19.1 H (11.0-16.0) % Plt Count 323 (160-400) X10*3/uL MPV 10.6 (9.4-12.3) fL Immature Gran % (Auto) 1.7 H (0.0-0.4) % Neut % (Auto) 66.5 (45-73) % Lymph % (Auto) 18.4 L (20-40) % Harrison % (Auto) 12.3 H (2-11) % Eos % (Auto) 0.7 (0-4) % Baso % (Auto) 0.4 (0-2) % Lymph # (Auto) 2.2 (1.2-4.9) X10*3/uL Harrison # (Auto) 1.5 H (0.1-1.2) X10*3/uL Eos # (Auto) 0.1 (0.0-0.4) X10*3/uL Baso # (Auto) 0.1 (0.0-0.2) X10*3/uL Abs Immat Gran (auto) 0.20 H (0.00-0.03) X10*3/uL Absolute Neuts (auto) 8.0 (2.0-8.3) x10*3/uL Absolute Nucleated RBC 0.000 (0.0-0.012) X10*3/uL Nucleated RBC % (auto) 0.0 (0.0-0.2) /100WBC PT (10.0-13.1) SEC INR (0.9-1.1) Sodium 140 (135-145) mmol/L Potassium 4.7 (3.3-5.1) mmol/L Chloride 102 (96-108) mmol/L Carbon Dioxide 28 (22-29) mmol/L Anion Gap 15 (12-20) BUN 45 H (9-16) mg/dL Creatinine 0.99 (0.5-1.4) mg/dL Estim Creat Clear Calc 68.0 Estimated GFR 57 Random Glucose 104 (60-115) mg/dL Lactic Acid 1.2 (0.5-2.0) mmol/L Calcium 11.1 H D (8.4-10.2) mg/dL Total Bilirubin 0.2 (0.0-1.0) mg/dL AST 18 (5-31) U/L ALT 6 (0-31) U/L Alkaline Phosphatase 75 (39-117) U/L Total Protein 7.6 (6.5-8.0) g/dL Albumin 2.9 L (3.5-5.0) g/dL Urine Color Urine Appearance Urine pH (5.0-9.0) Ur Specific Bliss (1.005-1.025) Urine Protein (Neg-Trace) mg/dL Urine Glucose (UA) (Negative) mg/dL Urine Ketones (Negative) mg/dL Urine Blood (Negative) Urine Nitrite (Negative) Ur Leukocyte Esterase (Negative) Urine RBC (0-2) /HPF Urine WBC (0-5) /HPF Ur Squamous Epith Cells (0-2) /HPF Urine Bacteria (None Seen) Hyaline Casts (0-2) /LPF COVID-19 (PADMA) (Negative) COVID-19 Clin Com 12/24/22 12/24/22 12/24/22 Range/Units 07:45 08:12 10:38 WBC (4.8-10.8) X10*3/uL RBC (4.20-5.50) X10*6/uL Hgb (12.0-16.0) g/dl Hct (37.0-47.0) % MCV (80.0-98.0) fL MCH (27.0-33.0) pg MCHC (31.0-35.0) g/dl RDW (11.0-16.0) % Plt Count (160-400) X10*3/uL MPV (9.4-12.3) fL Immature Gran % (Auto) (0.0-0.4) % Neut % (Auto) (45-73) % Lymph % (Auto) (20-40) % Harrison % (Auto) (2-11) % Eos % (Auto) (0-4) % Baso % (Auto) (0-2) % Lymph # (Auto) (1.2-4.9) X10*3/uL Harrison # (Auto) (0.1-1.2) X10*3/uL Eos # (Auto) (0.0-0.4) X10*3/uL Baso # (Auto) (0.0-0.2) X10*3/uL Abs Immat Gran (auto) (0.00-0.03) X10*3/uL Absolute Neuts (auto) (2.0-8.3) x10*3/uL Absolute Nucleated RBC (0.0-0.012) X10*3/uL Nucleated RBC % (auto) (0.0-0.2) /100WBC PT 12.9 (10.0-13.1) SEC INR 1.1 (0.9-1.1) Sodium (135-145) mmol/L Potassium (3.3-5.1) mmol/L Chloride (96-108) mmol/L Carbon Dioxide (22-29) mmol/L Anion Gap (12-20) BUN (9-16) mg/dL Creatinine (0.5-1.4) mg/dL Estim Creat Clear Calc Estimated GFR Random Glucose (60-115) mg/dL Lactic Acid (0.5-2.0) mmol/L Calcium (8.4-10.2) mg/dL Total Bilirubin (0.0-1.0) mg/dL AST (5-31) U/L ALT (0-31) U/L Alkaline Phosphatase (39-117) U/L Total Protein (6.5-8.0) g/dL Albumin (3.5-5.0) g/dL Urine Color Dark Yellow Urine Appearance Cloudy Urine pH 5.5 (5.0-9.0) Ur Specific Bliss >= 1.030 H (1.005-1.025) Urine Protein 300 (3+) H (Neg-Trace) mg/dL Urine Glucose (UA) Negative (Negative) mg/dL Urine Ketones Negative (Negative) mg/dL Urine Blood Large (3+) H (Negative) Urine Nitrite Negative (Negative) Ur Leukocyte Esterase Large (3+) H (Negative) Urine RBC >20 H (0-2) /HPF Urine WBC >50 H (0-5) /HPF Ur Squamous Epith Cells 0-2 (0-2) /HPF Urine Bacteria Trace (None Seen) Hyaline Casts 3-5 (0-2) /LPF COVID-19 (PADMA) Negative (Negative) COVID-19 Clin Com See Note Independent Interpretation I performed an independent interpretation of an: EKG, Plain X-Ray and CT Scan Interpretation: I independently viewed EKG which shows normal sinus rhythm with a rate of 99, normal WV, normal QRS, normal QT I independetely reviewed the CT and CXR and agree with rad report Radiology Impression Discussion of test interpretation with radiology: I have reviewed the radiologist's reading. Radiologist Impression: Close Abdomen/Pelvis CT (Signed) Nate Hillman - 12/24/22 Launch?Image [address] [address] [address] Scan Report Signed Patient: Terri Vaughn MR#: [id number] : 1960 Acct:[id number] Age/Sex: 62 / F ADM Date: 12/24/22 Loc: HO.ED Attending Dr: Ordering Physician: Carrie Yadav NP Date of Service: 12/24/22 Procedure(s): CT abdomen pelvis w IV con Accession Number(s): [id number] cc: Carrie Yadav NP~ EXAMINATION: CT ABDOMEN AND PELVIS WITH CONTRAST? CLINICAL INFORMATION: Hematuria, sepsis? COMPARISON: None available. TECHNIQUE: Multidetector volumetric images were obtained from the superior aspect of the liver through the pubic symphysis following administration 85 mL of Omnipaque 350 intravenous contrast. Sagittal and coronal reformatted images were obtained on the technologist's workstation.? Oral contrast: No This CT examination was performed using dose optimization techniques as appropriate, variously including the following: *Automated exposure control *Adjustment of mA and/or kV according to patient size (this includes techniques or standardized protocols for targeted exams where dose is matched to indication/reason for exam; i.e. extremities or head) *Use of iterative reconstruction technique DLP: 972 mGy-cm FINDINGS: LUNG BASES: There is left basilar atelectasis with underlying small pleural effusion. The heart size is normal. Minimal platelike atelectasis seen in the right lung base.? LIVER, GALLBLADDER, AND BILIARY TREE: The liver is normal in size, shape, and attenuation. No focal hepatic lesion or biliary ductal dilatation is present. The gallbladder is unremarkable with no evidence of radiopaque gallstones, gallbladder wall thickening, or obvious pericholecystic inflammatory changes.? PANCREAS: Unremarkable.? SPLEEN: Unremarkable.? ADRENAL GLANDS: Unremarkable.? KIDNEYS AND URETERS: The kidneys are normal in size, shape, and attenuation. There are small dense material seen measuring 8 mm in lower pole, 3 mm in midpole and 2 mm in midpole right kidney. Whether these represent small stones or excreted contrast is questioned. Relatively the left kidney is unremarkable. There is no hydroureteronephrosis seen..? BLADDER: There is a Randall's catheter in bladder with diffuse thick-walled bladder with fat stranding seen along the bladder wall question cystitis. GASTROINTESTINAL TRACT: There is scattered stool and gas seen in colon without distention. The small bowel loops are normal caliber. Appendix is not seen with certainty.? ABDOMINAL WALL: There is a large mesh surrounding the midline abdomen. Just inferior to the mesh is rectal diastases with midline abdominal hernia containing loop of small bowel small bowel. No free air or free fluid seen. ? LYMPH NODES: Small shotty lymph nodes seen in retroperitoneum. The lymph nodes have benign appearance. VASCULAR: Mild atherosclerotic changes of abdominal aorta without aneurysmal dilatation. PELVIC VISCERA: There is mild mural thickening involving the rectum but no perirectal fat stranding. Mass. There are bilateral decubitus ulcers and significant induration noted. On the left the ulcer extends to indication and is suspicious for osteomyelitis. There is significant debris within the ulcer. OSSEOUS STRUCTURES: No aggressive lytic or sclerotic process seen.? CT/CT abdomen pelvis w IV con IMPRESSION: 1.? Diffuse thick-walled urinary bladder with fat stranding question cystitis. There is a Randall's catheter in the bladder. 2.? There is a midline abdominal wall hernia containing a loop of small bowel. Superior to this is a large abdominal wall hernia mesh. 3.? There is no radiopaque urolith or hydroureteronephrosis. There are small dense material seen in the right kidney which could be small stones or excreted contrast. 4.? There is left basilar atelectasis with underlying small pleural effusion. 5.? 5. Bilateral decubitus buttock ulcers with significant debris seen in the left ulcer which extends to the ischium and is suspicious for osteomyelitis. Launch?Image [facility] [address] [place] [address] XRay Report Signed Patient: Terri Vaughn MR#: [id number] : 1960 Acct:[id number] Age/Sex: 62 / F ADM Date: 12/24/22 Loc: HO.ED Attending Dr: Ordering Physician: Carrie Yadav NP Date of Service: 12/24/22 Procedure(s): XR chest 1V Accession Number(s): [id number] cc: Carrie Yadav NP~ EXAMINATION: XR CHEST CLINICAL INFORMATION: Fever COMPARISON: Chest 11/06/2022 TECHNIQUE: Frontal view of the chest was obtained. FINDINGS: The lungs are well-expanded with platelike atelectasis left lower lobe and lingula. Heart size and progress clarities normal. No gross bony abnormality seen. XR/XR chest 1V IMPRESSION: Platelike atelectasis in left lower lobe and lingula. Independent Historian Clinical information obtained from an independent historian. History obtained from or confirmed by: EMS Clinical information obtained from EMS and confirmed on snf transfer for Critical Care Time Critical Care Time Critical Care Time: Yes Total Critical Care Time: 45 Attestation: multiple re-evals for blood pressure, admission requiring discussion with medicine team Discharge Plan Discharge Clinical Impression: UTI (urinary tract infection), Leukocytosis, Osteomyelitis Patient Disposition: Admitted As Inpatient
[2022-12-24 08:12] LABS: Alanine Aminotransferase 6 U/L (0-31); Albumin Level 2.9 g/dL (3.5-5.0); Alkaline Phosphatase 75 U/L (39-117); Anion Gap 15 (12-20); Aspartate Amino Transferase 18 U/L (5-31); Bilirubin Total 0.2 mg/dL (0.0-1.0); Blood Urea Nitrogen 45 mg/dL (9-16); Calcium 11.1 mg/dL (8.4-10.2); Carbon Dioxide 28 mmol/L (22-29); Chloride 102 mmol/L (96-108); Estimated Glomerular Filt Rate 57; Glucose Random 104 mg/dL (60-115); Potassium 4.7 mmol/L (3.3-5.1); Sodium 140 mmol/L (135-145); Total Protein 7.6 g/dL (6.5-8.0)
--- NOTE | 2022-12-24 08:16 | PC.NURSE ---
wounds all redressed and pt resting now w/ less verbalizations. abd soft non tender. g tube in place. cantu continues to have bloody urine. plan is for irrigation. fluids infusing. pt is unable to follow commands. nsr on monitor. unlabroed resp.
--- NOTE | 2022-12-24 10:51 | PC.NURSE ---
u/a sent. urine has been running clear since shortly after arrival. bag emptied of 450ml then irrigation performed. No blood, no clots noted.
--- NOTE | 2022-12-24 11:12 | PHA.MEDREC ---
Addendum entered by Radha Bae 12/24/22 11:13: taking acidophilus caps once daily with a stop date of 12/29/22 however strength is unknown. Stop date for Doxycycline is today 12/24/22. MAR from [facility] suggests last dose was given today. Original Note: Pharmacy Consult ? Medication Reconciliation Pharmacy has completed the medication reconciliation. used list from [facility].
--- NOTE | 2022-12-24 11:19 | PC.NURSE ---
Addendum entered by Dolores Bhandari 12/24/22 12:54: nurse practitioner's name is renetta, not maegan. Original Note: assuming care of pt from prev rn bp 83/43(53). pt talking nonsensical yelling. placing 2nd iv at this [facility], [place] running provider maegan notified
--- NOTE | 2022-12-24 11:24 | PC.NURSE ---
Addendum entered by Dolores Bhandari 12/24/22 12:53: provider's name is renetta issa, nurse practitioner. Original Note: per maegan provider running 1l ns for bp currently 89/53 provider aware
--- NOTE | 2022-12-24 12:45 | PC.NURSE ---
inpatioent provider at bedside. abx/fluids have finished with piv remaining c/d/i. pt remains alert and verbalizing occasional words such as upstairs. bp has improved with sbp in 110s at this time.
--- NOTE | 2022-12-24 13:39 | PM.IMHP ---
History of Present Illness Date of Service: 12/24/22 Attending physician on admission: Corbin Terry Chief Complaint: hematuria 62 yo female from a [facility] with past medical history of congenital intellectual disability, frontotemporal cognitive disorder, HLD, seizures, hypothyroidism, chronic kidney disease, PE on Eliquis, hx RUE DVT, schizoaffective disorder, hypertension, multiple pressure ulcers, UTIs with chronic Cantu, recent prolonged hospital admission (09/29-11/10 for aspiration PNA, sepsis, w/ PEG tube placement) presented to the ED earlier today from [facility] with gross hematuria noted from Cantu bag this morning by [facility] staff.?She is nonverbal at baseline. Per SNF notes she is noted to have unstageable ulcers of the buttock bilaterally, stage 3 ulcers bilateral heels and unstable ulcer right lateral malleolus. On arrival, patient febrile to 100.6 with elevated HR 99 but no hypotension. However, did developed hypotension to 89/53 while in the ED and given 2L IV NS bolus with improvement to 109/61 on admission. There is a milk leukocytosis 12.1, stable normocytic anemia with H/H 8.7/29.7%. Renal function baseline, electrolytes normal. UA with 3+ leuks, 3+ blood, +urinary sediment, trace bacteria, 3+ protein, elevated specific gravity. Negative for COVID-19. CXR with platelike atelectasis in LLL and lingular. CT abd/pelvis showing diffuse thick-walled urinary bladder with fat stranding, midline abd wall hernia with loop of small bowel with large abd wall hernia mesh superior to this, and bilateral decubitus buttock ulcers with significant debris seen in left ulcer extending to the ischium suspicious for osteomyelitis. Per ED provider, large amount of gauze pulled from bilateral ulcers with residual adherent debris remaining in wound. In the ED, give IV cefepime, IV vanco. 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 Hyperlipidemia Hypertension Hypothyroidism Intellectual disability Pressure injury of left heel, stage 3 Pressure sore on ankle Pressure ulcer of right leg, stage 3 Pulmonary embolism Schizoaffective disorder Surgical History S/P percutaneous endoscopic gastrostomy (PEG) tube placement Social History Household Members: Unknown / Unable to assess Housing: Unknown / Unable to assess Unable to assess alcohol history related to: Unable to respond Alcohol intake: unknown Patient Tobacco Use Status: Tobacco use Unknown Use of substances other than those prescribed or required for medical reasons: Unknown Advance Directives: No Advance Directives Information Provided: No service: No Current occupational status: disabled Meds Allergies Allergy/AdvReac Type Severity Reaction Status Date / Time aspirin Allergy Unknown Verified 12/24/22 07:25 chlorproethazine Allergy Unknown Verified 12/24/22 07:25 codeine Allergy Unknown Verified 12/24/22 07:25 guaifenesin Allergy Unknown Verified 12/24/22 07:25 Penicillins Allergy Unknown Verified 12/24/22 07:25 phenytoin Allergy Unknown Verified 12/24/22 07:25 potassium [From Potassimin] Allergy Unknown Verified 12/24/22 07:25 Active Medications: Current Medications Acetaminophen (Acetaminophen 325 Mg Tablet) 650 mg PO Q6H PRN PRN Reason: Pain, Mild (Pain Scale 1-3) Acetaminophen (Acetaminophen Child Oral Liq 160 Mg/5 Ml Ud Cup) 960 mg G-TUBE TID DEJUAN Apixaban (Apixaban 2.5 Mg Tablet) 2.5 mg G-TUBE BID DEJUAN Ascorbic Acid (Ascorbic Acid 500 Mg Tablet) 1,000 mg G-TUBE BID DEJUAN Atorvastatin Calcium (Atorvastatin Calcium 10 Mg Tablet) 10 mg G-TUBE DAILY DEJUAN Bisacodyl (Bisacodyl 10 Mg Supp.Rect) 10 mg LA DAILY PRN PRN Reason: Constipation Docusate Sodium (Docusate Sodium 100 Mg Capsule) 100 mg PO DAILY PRN PRN Reason: Constipation Cefepime HCl 2 gm/ Sodium (Chloride) 50 mls @ 100 mls/hr IV Q8H DEJUAN Lactulose (Lactulose 20 Gm/30 Ml Solution) 20 gm G-TUBE BID DEJUAN Levothyroxine Sodium (Levothyroxine Sodium 100 Mcg Tablet) 100 mcg G-TUBE DAILY@0630 [facility] Mirtazapine (Mirtazapine 7.5 Mg Tablet) 7.5 mg G-TUBE DAILY [facility] Non-Formulary Medication (Amino Acids-Protein Hydrolys) 30 each feeding tube BID [facility] Ondansetron HCl (Ondansetron Hcl 4 Mg/2 Ml Vial) 4 mg IVPUSH Q8H PRN PRN Reason: Nausea and Vomiting Pharmacy Consult (Consult Rx Perform Med Rec) 1 each MISCELLANE ONCE PRN PRN Reason: Consult order Pharmacy Consult (Consult Rx Vancomycin Dosing) 1 each MISCELLANE DAILY PRN PRN Reason: Consult order Quetiapine Fumarate (Quetiapine Fumarate 50 Mg Tablet) 50 mg G-TUBE TID [facility] Sodium Biphosphate/Sodium Phosphate (Sodium Phosphate,Garrett-Dibasic 133 Ml Enema) 118 ml LA DAILY PRN PRN Reason: Constipation Sodium Chloride (0.9 % Sodium Chloride Flush 3 Ml Syringe) 3 ml IVFLUSH QSHIFT DEJUAN Trazodone HCl (Trazodone Hcl 100 Mg Tablet) 200 mg G-TUBE BID [facility] Valproic Acid (Valproic Acid (As Sodium Salt) 250 Mg/5 Ml Solution) 1,000 mg G-TUBE BID [facility] Home Medications Medication Instructions Recorded Confirmed Last Taken Type apixaban 2.5 mg tablet (Eliquis) 2.5 mg feeding tube BID 01/02/22 12/24/22 12/24/22 History atorvastatin 10 mg tablet 10 mg feeding tube DAILY 01/02/22 12/24/22 12/24/22 History lactulose 10 gram/15 mL oral 20 g feeding tube BID 01/02/22 12/24/22 12/24/22 History solution (Enulose) mirtazapine 7.5 mg tablet 7.5 mg feeding tube DAILY 01/02/22 12/24/22 12/24/22 History quetiapine 50 mg tablet 50 mg feeding tube TID 01/02/22 12/24/22 12/24/22 History trazodone 100 mg tablet 200 mg feeding tube BID 01/02/22 12/24/22 12/24/22 History ascorbic acid (vitamin C) 1,000 mg 1,000 mg feeding tube BID 09/29/22 12/24/22 12/24/22 History tablet (Vitamin C) bisacodyl 10 mg rectal suppository 10 mg LA DAILY PRN Constipation 09/29/22 12/24/22 Unknown History tramadol 50 mg tablet 50 mg feeding tube Q12H PRN Pain 09/29/22 12/24/22 12/19/22 History acetaminophen 160 mg/5 mL oral 960 mg feeding tube TID 12/24/22 12/24/22 12/24/22 History elixir amino acids-protein hydrolysate 15 30 ea feeding tube BID 12/24/22 12/24/22 12/24/22 History gram-100 kcal/30 mL oral liquid doxycycline hyclate 100 mg tablet 100 mg feeding tube BID 12/24/22 12/24/22 12/24/22 History levothyroxine 100 mcg tablet 100 mcg feeding tube DAILY@0630 12/24/22 12/24/22 12/24/22 History sodium phosphates 19 gram-7 118 ml LA DAILY PRN Constipation 12/24/22 12/24/22 Unknown History gram/118 mL enema (Fleet Enema) valproic acid (as sodium salt) 250 1,000 mg feeding tube BID 12/24/22 12/24/22 12/24/22 History mg/5 mL (5 mL) oral solution Physical Exam Vital Signs and Narrative: Vital Signs: Last Vital Signs Temp 97.7 F 12/24/22 11:25 Pulse 88 12/24/22 12:46 Resp 18 12/24/22 12:46 BP 109/61 12/24/22 12:46 Pulse Ox 98 12/24/22 12:46 O2 Del Method Room Air 12/24/22 12:46 O2 Flow Rate 2 12/24/22 10:27 BMI result Body Mass Index 30.0 Constitutional - Awake and Alert, No apparent distress Eyes - PERRLA, EOMI Cardiovascular - S1S2, RRR, No edema Mouth- velvety white coating covering tongue Respiratory - Normal lung expansion, Normal respiratory effort, No respiratory distress, bibasilar crackles bilaterally Gastrointestinal - NT / ND; +BS; No rebound or guarding. Large suprapubic reducible mass without overlying erythema, warmth, gangrene - No CVA tenderness. cantu catheter in place draining yellow urine with small flecks blood, no gross hematuria/large clots noted Extremities - no calf tenderness bilaterally, swelling RLE Skin - Warm/Dry. about 3cm x 1.5cm tunneling unstageable ulceration right buttock with surrounding more superfical ulceration covered with slough. about 2 cm unstabeable decubitus ulcer left buttock with slough. Both wound with sanguinous drainage. about 3cm stage 3 ulcerations bilateral heel with slough and purulent drainage noted on dressings with foul odor. Small 1cm superfical stage 1 ulcer right lateral malleolus Neurological - Alert & disoriented, yelling nonsensically Left buttock: Right buttock: Right heel: Left heel: Results Labs 12/24/22 07:45 12/24/22 07:45 Labs: Laboratory Results - last 24 hr 12/24/22 12/24/22 12/24/22 07:45 07:45 07:45 MCV 97.7 MCH 28.6 MCHC 29.3 L RDW 19.1 H Plt Count 323 MPV 10.6 Immature Gran % (Auto) 1.7 H Neut % (Auto) 66.5 Lymph % (Auto) 18.4 L Garrett % (Auto) 12.3 H Eos % (Auto) 0.7 Baso % (Auto) 0.4 Lymph # (Auto) 2.2 Garrett # (Auto) 1.5 H Eos # (Auto) 0.1 Baso # (Auto) 0.1 Abs Immat Gran (auto) 0.20 H Absolute Neuts (auto) 8.0 Absolute Nucleated RBC 0.000 Nucleated RBC % (auto) 0.0 PT INR Anion Gap 15 Estim Creat Clear Calc 68.0 Estimated GFR 57 Random Glucose 104 Lactic Acid 1.2 Calcium 11.1 H D Total Bilirubin 0.2 AST 18 ALT 6 Alkaline Phosphatase 75 Total Protein 7.6 Albumin 2.9 L Urine Color Urine Appearance Urine pH Ur Specific Xenia Urine Protein Urine Glucose (UA) Urine Ketones Urine Blood Urine Nitrite Ur Leukocyte Esterase Urine RBC Urine WBC Ur Squamous Epith Cells Urine Bacteria Hyaline Casts COVID-19 (PADMA) COVID-19 Clin Com 12/24/22 12/24/22 12/24/22 07:45 08:12 10:38 MCV MCH MCHC RDW Plt Count MPV Immature Gran % (Auto) Neut % (Auto) Lymph % (Auto) Garrett % (Auto) Eos % (Auto) Baso % (Auto) Lymph # (Auto) Garrett # (Auto) Eos # (Auto) Baso # (Auto) Abs Immat Gran (auto) Absolute Neuts (auto) Absolute Nucleated RBC Nucleated RBC % (auto) PT 12.9 INR 1.1 Anion Gap Estim Creat Clear Calc Estimated GFR Random Glucose Lactic Acid Calcium Total Bilirubin AST ALT Alkaline Phosphatase Total Protein Albumin Urine Color Dark Yellow Urine Appearance Cloudy Urine pH 5.5 Ur Specific Xenia >= 1.030 H Urine Protein 300 (3+) H Urine Glucose (UA) Negative Urine Ketones Negative Urine Blood Large (3+) H Urine Nitrite Negative Ur Leukocyte Esterase Large (3+) H Urine RBC >20 H Urine WBC >50 H Ur Squamous Epith Cells 0-2 Urine Bacteria Trace Hyaline Casts 3-5 COVID-19 (PADMA) Negative COVID-19 Clin Com See Note Imaging Radiologist's Impressions: Impressions Chest X-Ray 12/24/22 08:28 IMPRESSION: Platelike atelectasis in left lower lobe and lingula. Abdomen/Pelvis CT 12/24/22 08:50 IMPRESSION: 1. Diffuse thick-walled urinary bladder with fat stranding question cystitis. There is a Cantu's catheter in the bladder. 2. There is a midline abdominal wall hernia containing a loop of small bowel. Superior to this is a large abdominal wall hernia mesh. 3. There is no radiopaque urolith or hydroureteronephrosis. There are small dense material seen in the right kidney which could be small stones or excreted contrast. 4. There is left basilar atelectasis with underlying small pleural effusion. 5. 5. Bilateral decubitus buttock ulcers with significant debris seen in the left ulcer which extends to the ischium and is suspicious for osteomyelitis. Fleischner guidelines were followed. Assessment and Plan (1) Sepsis: Status: Acute (2) UTI (urinary tract infection): Status: Acute (3) Decubitus ulcer of buttock, right, unstageable: Status: Acute (4) Pressure ulcer of right leg, stage 3: Status: Acute (5) Decubitus ulcer of left buttock, unstageable: Status: Acute (6) Pressure injury of left heel, stage 3: Status: Acute Plan 62 yo female from a [facility] with past medical history of congenital intellectual disability, frontotemporal cognitive disorder, HLD, seizures, hypothyroidism, chronic kidney disease, PE on Eliquis, schizoaffective disorder, hypertension, multiple pressure ulcers, UTIs with chronic Cantu, recent prolonged hospital admission (09/29-11/10 for aspiration PNA, sepsis, w/ PEG tube placement) admitted for sepsis related to UTI as well as multiple infected decubitus ulcers. #Sepsis- related to UTI vs infected decubitus ulcers -Leukocytosis 12.1, mild tachycardia, febrile. 2 episdodes hypotension- resolved following IVF. Lactic acid normal, no end organ damage. No severe sepsis/shock -Continue IV vanco and cefepime -Follow CBC, Cultures #Acute UTI with chronice cantu in place - UA with neg nitrites, 3+ blood, +urinary sediment, trace bacteria -Hematuria in cantu bad, no gross blood/large clots -Continue cefepime -Continue cantu -Cantu CBC, cultures #Multiple infected decubitus ulcers- present on admission -Unstageable ulcers to the bilateral buttock, stage3 ulcers to bilateral heels, stage 1 ulcer right lateral malleolus -History +wound cultures from left heel growing MRSA, and proteus -General surgery consult -Continue IV vanco and cefepime -Wound care -Contact precautions #?osteomyelitis L ischium- unspecified chronicity -Ct abd/pelvis noting debri from left decubitus ulcer butccok to the ischium -Per ED provider, large amount gauze removed from wound with adherent debri retained -ID consult -ESR/CRP pending -Continue vanco, cefepime #Swelling RLE -History PE, RUE DVT -only on 2.5mg eliquis BID -Venous duplex RLE ordered #Chronic dysphagia with PEG tube in place -continue tube feeding diet -Also takes pureed/nectar thick diet per [employer] last admission #Hypothyroidism -continue synthroid #Mood disorder -continue home meds #Large reducible hernia- suprapubic region -no incarceration or strangulation -outpt follow up DVT prophylaxis- eliquis Full code Guardian: Edith Corralickson [phone] Pt requires inpt stay at least 2 midnights for management of UTI and multiple infected decubitus ulcers with sepsis and question of osteomylitis requiring IV abx, close monitoring for decompensation, and expert consultation Time Spent With Patient Time: Total time managing care of this patient today ____ minutes. Quality Stroke Does the patient have a stroke diagnosis?: No VTE Prior VTE?: No VTE Risk Level:: Medical - moderate - high VTE Device Contraindication: Treatment Not Indicated VTE Drug Contraindication: N/A - Med Ordered
--- NOTE | 2022-12-24 13:46 | PHA.PROG ---
Admission Date/Time: December 24, 2022 13:23 Indication: SKIN AND SKIN STRUCTURE Weight in k.358 kg Adjusted body weight in Kg: [place] body weight in Kg: Obesity Dosing Indication % IBW: Serum Creatinine - Last 168 Hours 12/24/22 07:45 Creatinine 0.99 Estimated CrCl and GFR - Last 168 Hours 12/24/22 07:45 Estim Creat Clear Calc 68.0 Estimated GFR 57 Vancomycin Loading Dose: 2000 MG Current Vancomycin Dosing Regimen:750 MG Q 12 HOURS Vancomycin Monitoring using AUC goal of 400 - 600 range with trough as surrogate marker: PREDICTED AUC OF 448 Date and Time for next Vancomycin Level to be drawn:12/25/22 @1999 Pharmacist Comments on Vancomycin Plan: Vancomycin dosing will take advantage of [employer] as a clinical decision support tool that uses Bayesian modeling to calculate individual patient's pharmacokinetic parameters and forecast the patient's drug concentration time course with the target goal AUC 24 range of 400 - 600 mg/L/hr.
[2022-12-24 14:14] LABS: C Reactive Protein 6.79 mg/dL (< or = 0.50)
[2022-12-24] MEDS: QUEtiapine Fumarate 50 MG TABLET G-TUBE ×2 (16:22→22:30)
--- NOTE | 2022-12-24 17:32 | PC.NURSE ---
PT CLEANED AND REPOSITIONED TO R SIDE. CURRENTLY ASLEEP, IN NAD. AWAITING ROOM ASSIGNMENT.
--- NOTE | 2022-12-24 18:58 | PC.NURSE ---
pt resting in bed w/o distress. airway intact. VSS.
[2022-12-24] MEDS: traZODone HCL 100 MG TABLET 200 MG G-TUBE (19:50)
--- NOTE | 2022-12-24 20:31 | PC.NURSE ---
Addendum entered by Anh Peters 12/25/22 00:52: this rn discussed with weigher and charger denisa and katerin rosey [place] regarding diet order. per rosey and speech therapy pt diet is pureed with nectar thick liquids. tube feeding order discontinued by rosey [place] Original Note: this rn assumed care of pt @ 1900. this rn did not see current order for feeding tube feedings. this rn spoke with weigher and charger and hospitalist dr esqueda regarding order for feedings. awaiting orders at this time time
--- NOTE | 2022-12-24 20:42 | PC.NURSE ---
pt repositioned to L side utilizing pillow under right hip and right shoulder
--- NOTE | 2022-12-24 22:05 | PC.NURSE ---
this rn and editor house organ repositioned pt at this time. pt repositioned utilizing pillows under L hip and shoulder. pillow placed in between knees. perineal care provided. pads changed under patient. pt tolerated well
--- NOTE | 2022-12-24 22:24 | MHC.EDTECH ---
t/w and michele jay repositioned pt on right side to prevent pressure on coccyx. 700 cc urine emptied from cantu catheter
[2022-12-24] MEDS: Apixaban 2.5 MG TABLET G-TUBE (22:30)
[2022-12-24] MEDS: Ascorbic Acid 500 MG TABLET 1000 MG G-TUBE (22:30)
[2022-12-24] MEDS: Mirtazapine 7.5 MG TABLET G-TUBE (22:30)
[2022-12-24] MEDS: Lactulose 20 GM/30 ML SOLUTION G-TUBE (22:31)
[2022-12-25] VITALS (7 sets, daily range): BP systolic 112–148; BP diastolic 58–94; PULSE 82–97; RESP 16–20; TEMP 35.9–36.7; O2SAT 91–97; BMI 30.7
--- NOTE | 2022-12-25 03:28 | PC.NURSE ---
pt sleeping at this time. awakens to VS. lights dimmed noise minimized as possible
--- NOTE | 2022-12-25 05:26 | PC.NURSE ---
this rn and additional rn repositioned pt utilizing pillows. one pillow placed under left hip additional pillow placed under right hip additional pillow placed on pt lap elevating bilateral arms. pillow placed in between knees. lights dimmed at this time
[2022-12-25] MEDS: Levothyroxine Sodium 100 MCG TABLET G-TUBE (05:53)
[2022-12-25] MEDS: traZODone HCL 100 MG TABLET 200 MG G-TUBE ×2 (05:53→17:30)
[2022-12-25 06:24] LABS: Anion Gap 13 (12-20); Blood Urea Nitrogen 33 mg/dL (9-16); Calcium 10.8 mg/dL (8.4-10.2); Carbon Dioxide 25 mmol/L (22-29); Chloride 110 mmol/L (96-108); Creatinine Clr Calc Pharmacy 82.1; Estimated Glomerular Filt Rate > 60; Glucose Random 81 mg/dL (60-115); Potassium 4.4 mmol/L (3.3-5.1); Sodium 144 mmol/L (135-145)
--- NOTE | 2022-12-25 07:55 | PC.NURSE ---
Addendum entered by Davina Abbasi 12/25/22 08:07: pt sinus on tele. Original Note: pt confused at baseline, pt able to follow some commands. respirations equal and unlabored, bilateral lung sounds clear. bowel sounds hypoactive in all 4 quadrants, g-tube in place, no drainage noted, no redness around site,skin in tact. pt left arm swollen. pt repositioned onto right side. pt has booties on both feet. pt draining 200ml of yellow urine in cantu.
[2022-12-25] MEDS: Apixaban 2.5 MG TABLET G-TUBE ×2 (10:07→22:24)
[2022-12-25] MEDS: QUEtiapine Fumarate 50 MG TABLET G-TUBE ×3 (10:07→22:24)
[2022-12-25] MEDS: Lactulose 20 GM/30 ML SOLUTION G-TUBE ×2 (10:07→22:25)
[2022-12-25] MEDS: Ascorbic Acid 500 MG TABLET 1000 MG G-TUBE ×2 (10:07→22:24)
[2022-12-25] MEDS: Atorvastatin Calcium 10 MG TABLET G-TUBE (10:07)
--- NOTE | 2022-12-25 10:19 | MHC.CLN ---
NUTRITION CONSULT FOR TUBE FEEDING. PATIENT KNOWN FROM PRIOR ADMISSION 09/29-11/10/22 WITH PEG PLACEMENT DURING THAT ADMISSION. RECOMMEND PROMOTE AT MAX GOAL RATE 70ML/HR WITH 240ML FREE WATER FLUSHES Q 6HRS. PROVIDES 1680KCALS (24KCALS/KG CMW), 105G PROTEIN (1.5G/KG CMW), 2369ML TOTAL WATER FROM FORMULA AND FLUSHES (34ML/KG CMW) TF WITH HIGHER PROTEIN TO PROMOTE WOUND HEALING MONITOR TOLERANCE, RESIDUALS, LYTES AND WOUND HEALING. SEE CLINICAL NUTRITION ASSESSMENT 12/25/22.
--- NOTE | 2022-12-25 10:42 | PM.CNGS ---
History of Present Illness Consult details Consult date: 12/25/22 Requesting physician: Edelmira Liu Narrative: 62-year-old female patient presented to the emergency department with gross hematuria admitted to the hospitalist service. Surgical consultation is requested for evaluation of bilateral hip decubitus and heel ulcers. Patient is nonverbal and history was obtained from review of medical records. She is resident of [facility] and has a past history significant for congenital intellectual disability, frontotemporal cognitive disorder, hyperlipidemia, seizures, hypothyroidism, chronic kidney disease, pulmonary embolism, currently on Eliquis, history of right upper extremity DVT, schizoaffective disorder, hypertension, urinary tract infections with chronic Randall catheter, aspiration pneumonia, status post PEG placement. She was previously treated for bilateral buttock ulcers which extend into the subcutaneous tissue. Review of a CT abdomen and pelvis does reveal bilateral decubitus ulcers with significant induration noted. On the left ulcer extends to the ischium with apparent every within the ulcer. Findings were suspicious for osteomyelitis. Laboratories yesterday revealed a elevated WBC of 12.1, however repeat WBC this morning reveals a WBC of 7.5. Bilateral foot x-rays revealed bilateral foot osteopenia but no evidence of osteomyelitis. Current dressing wound care [facility] is unclear. 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 Hyperlipidemia Hypertension Hypothyroidism Intellectual disability Pressure injury of left heel, stage 3 Pressure sore on ankle Pressure ulcer of right leg, stage 3 Pulmonary embolism Schizoaffective disorder Surgical History Surgical History S/P percutaneous endoscopic gastrostomy (PEG) tube placement Social History Social History Household Members: Unknown / Unable to assess Housing: Unknown / Unable to assess Unable to assess alcohol history related to: Unable to respond Alcohol intake: unknown Patient Tobacco Use Status: Tobacco use Unknown service: No Current occupational status: disabled Meds Allergies Allergy/AdvReac Type Severity Reaction Status Date / Time aspirin Allergy Unknown Verified 12/24/22 07:25 chlorproethazine Allergy Unknown Verified 12/24/22 07:25 codeine Allergy Unknown Verified 12/24/22 07:25 guaifenesin Allergy Unknown Verified 12/24/22 07:25 Penicillins Allergy Unknown Verified 12/24/22 07:25 phenytoin Allergy Unknown Verified 12/24/22 07:25 potassium [From Potassimin] Allergy Unknown Verified 12/24/22 07:25 Active Medications: Current Medications Acetaminophen (Acetaminophen 325 Mg Tablet) 650 mg PO Q6H PRN PRN Reason: Pain, Mild (Pain Scale 1-3) Acetaminophen (Acetaminophen Child Oral Liq 160 Mg/5 Ml Ud Cup) 960 mg G-TUBE TID [facility] Last Admin: 12/25/22 10:06 Dose: 960 mg Apixaban (Apixaban 2.5 Mg Tablet) 2.5 mg G-TUBE BID [facility] Last Admin: 12/25/22 10:07 Dose: 2.5 mg Ascorbic Acid (Ascorbic Acid 500 Mg Tablet) 1,000 mg G-TUBE BID [facility] Last Admin: 12/25/22 10:07 Dose: 1,000 mg Atorvastatin Calcium (Atorvastatin Calcium 10 Mg Tablet) 10 mg G-TUBE DAILY [facility] Last Admin: 12/25/22 10:07 Dose: 10 mg Bisacodyl (Bisacodyl 10 Mg Supp.Rect) 10 mg CA DAILY PRN PRN Reason: Constipation Docusate Sodium (Docusate Sodium 100 Mg Capsule) 100 mg PO DAILY PRN PRN Reason: Constipation Cefepime HCl 2 gm/ Sodium (Chloride) 50 mls @ 100 mls/hr IV Q8H [facility] Last Infusion: 12/25/22 08:38 Dose: Infused Vancomycin HCl 750 mg/ Sodium (Chloride) 265 mls @ 265 mls/hr IV Q12H [facility] Last Admin: 12/25/22 10:08 Dose: 265 mls/hr Lactulose (Lactulose 20 Gm/30 Ml Solution) 20 gm G-TUBE BID [facility] Last Admin: 12/25/22 10:07 Dose: 20 gm Levothyroxine Sodium (Levothyroxine Sodium 100 Mcg Tablet) 100 mcg G-TUBE DAILY@0630 [facility] Last Admin: 12/25/22 05:53 Dose: 100 mcg Mirtazapine (Mirtazapine 7.5 Mg Tablet) 7.5 mg G-TUBE BEDTIME [facility] Last Admin: 12/24/22 22:30 Dose: 7.5 mg Ondansetron HCl (Ondansetron Hcl 4 Mg/2 Ml Vial) 4 mg IVPUSH Q8H PRN PRN Reason: Nausea and Vomiting Pharmacy Consult (Consult Rx Perform Med Rec) 1 each MISCELLANE ONCE PRN PRN Reason: Consult order Pharmacy Consult (Consult Rx Vancomycin Dosing) 1 each MISCELLANE DAILY PRN PRN Reason: Consult order Quetiapine Fumarate (Quetiapine Fumarate 50 Mg Tablet) 50 mg G-TUBE TID [facility] Last Admin: 12/25/22 10:07 Dose: 50 mg Sodium Biphosphate/Sodium Phosphate (Sodium Phosphate,[place]-Dibasic 133 Ml Enema) 118 ml CA DAILY PRN PRN Reason: Constipation Sodium Chloride (0.9 % Sodium Chloride Flush 3 Ml Syringe) 3 ml IVFLUSH QSHIFT [facility] Last Admin: 12/25/22 07:42 Dose: 3 ml Trazodone HCl (Trazodone Hcl 100 Mg Tablet) 200 mg G-TUBE BID@0600,1800 [facility] Last Admin: 12/25/22 05:53 Dose: 200 mg Valproic Acid (Valproic Acid (As Sodium Salt) 250 Mg/5 Ml Solution) 1,000 mg G-TUBE BID [facility] Last Admin: 12/25/22 10:06 Dose: 1,000 mg Home Medications Medication Instructions Recorded Confirmed Last Taken Type apixaban 2.5 mg tablet (Eliquis) 2.5 mg feeding tube BID 01/02/22 12/24/22 12/24/22 History atorvastatin 10 mg tablet 10 mg feeding tube DAILY 01/02/22 12/24/22 12/24/22 History lactulose 10 gram/15 mL oral 20 g feeding tube BID 01/02/22 12/24/22 12/24/22 History solution (Enulose) mirtazapine 7.5 mg tablet 7.5 mg feeding tube DAILY 01/02/22 12/24/22 12/24/22 History quetiapine 50 mg tablet 50 mg feeding tube TID 01/02/22 12/24/22 12/24/22 History trazodone 100 mg tablet 200 mg feeding tube BID 01/02/22 12/24/22 12/24/22 History ascorbic acid (vitamin C) 1,000 mg 1,000 mg feeding tube BID 09/29/22 12/24/22 12/24/22 History tablet (Vitamin C) bisacodyl 10 mg rectal suppository 10 mg CA DAILY PRN Constipation 09/29/22 12/24/22 Unknown History tramadol 50 mg tablet 50 mg feeding tube Q12H PRN Pain 09/29/22 12/24/22 12/19/22 History acetaminophen 160 mg/5 mL oral 960 mg feeding tube TID 12/24/22 12/24/22 12/24/22 History elixir amino acids-protein hydrolysate 15 30 ea feeding tube BID 12/24/22 12/24/22 12/24/22 History gram-100 kcal/30 mL oral liquid doxycycline hyclate 100 mg tablet 100 mg feeding tube BID 12/24/22 12/24/22 12/24/22 History levothyroxine 100 mcg tablet 100 mcg feeding tube DAILY@0630 12/24/22 12/24/22 12/24/22 History sodium phosphates 19 gram-7 118 ml CA DAILY PRN Constipation 12/24/22 12/24/22 Unknown History gram/118 mL enema (Fleet Enema) valproic acid (as sodium salt) 250 1,000 mg feeding tube BID 12/24/22 12/24/22 12/24/22 History mg/5 mL (5 mL) oral solution Physical Exam Vital Signs: Vital Signs: Last Vital Signs Temp 97.0 F 12/25/22 05:33 Pulse 97 12/25/22 05:33 Resp 18 12/25/22 05:33 BP 133/94 H 12/25/22 05:33 Pulse Ox 96 12/25/22 05:33 O2 Del Method Room Air 12/25/22 05:33 O2 Flow Rate 2 12/24/22 10:27 BMI result Body Mass Index 30.0 Const: General: awake and confusion Orientation/consciousness: confusion Limitations: altered mental status Resp: Other: Breathing comfortably on room air Back/Spine/Pelvis: Other: Bilateral ischial ulceration noted with deep ulceration. No necrotic skin at margin. Exposed subcutaneous tissue is noted with granulation tissue and margins. Unable to palpate ischium due to patient positioning. No abscess identified. Ulcer measures approximately 4-5 cm in diameter each and at least 6 cm deep although it is difficult to tell exact depth. Bilateral heel ulcers are flat with granulated tissue at the base. Slight amount of slough noted and surface which is easily washed off with 4 x 4 sponge. Dressings replaced. Skin: Other: Warm and dry, Neuro: General: confusion Extrem: Other: Right leg in a Podus boot. Left foot examined and a 3 x 4 cm ulceration is noted with surrounding callus which is lifting. The callus measured 4 cm in diameter and was noted circumferentially around the ulceration. The callus was easily excised using a forceps revealing underlying epidermis without necrosis. The wound base is granulated with a slight peel. Wound was dressed with a 3 x 4 cm piece of silver alginate followed by fluffed gauze and Kerlix. Results Labs 12/25/22 05:44 12/25/22 05:44 Labs: Abnormal lab results 12/24/22 12/24/22 12/24/22 Range/Units 07:45 07:45 10:38 RBC (4.20-5.50) X10*6/uL Hgb (12.0-16.0) g/dl Hct (37.0-47.0) % MCV (80.0-98.0) fL MCHC (31.0-35.0) g/dl RDW (11.0-16.0) % Immature Gran % (Auto) (0.0-0.4) % [place] % (Auto) (2-11) % Abs Immat Gran (auto) (0.00-0.03) X10*3/uL ESR 114 H (0-20) MM/HR Chloride (96-108) mmol/L BUN (9-16) mg/dL Calcium (8.4-10.2) mg/dL C-Reactive Protein 6.79 H (< or = 0.50) mg/dL Ur Specific [place] >= 1.030 H (1.005-1.025) Urine Protein 300 (3+) H (Neg-Trace) mg/dL Urine Blood Large (3+) H (Negative) Ur Leukocyte Esterase Large (3+) H (Negative) Urine RBC >20 H (0-2) /HPF Urine WBC >50 H (0-5) /HPF 12/25/22 12/25/22 Range/Units 05:44 05:44 RBC 2.92 L (4.20-5.50) X10*6/uL Hgb 8.4 L (12.0-16.0) g/dl Hct 29.4 L (37.0-47.0) % MCV 100.7 H (80.0-98.0) fL MCHC 28.6 L (31.0-35.0) g/dl RDW 19.2 H (11.0-16.0) % Immature Gran % (Auto) 1.5 H (0.0-0.4) % [place] % (Auto) 11.4 H (2-11) % Abs Immat Gran (auto) 0.11 H (0.00-0.03) X10*3/uL ESR (0-20) MM/HR Chloride 110 H (96-108) mmol/L BUN 33 H (9-16) mg/dL Calcium 10.8 H (8.4-10.2) mg/dL C-Reactive Protein (< or = 0.50) mg/dL Ur Specific [place] (1.005-1.025) Urine Protein (Neg-Trace) mg/dL Urine Blood (Negative) Ur Leukocyte Esterase (Negative) Urine RBC (0-2) /HPF Urine WBC (0-5) /HPF Short CBC 12/25/22 Range/Units 05:44 WBC 7.5 (4.8-10.8) X10*3/uL Hgb 8.4 L (12.0-16.0) g/dl Hct 29.4 L (37.0-47.0) % Plt Count 283 (160-400) X10*3/uL BMP 12/25/22 05:44 Sodium 144 Potassium 4.4 Chloride 110 H Carbon Dioxide 25 BUN 33 H Creatinine 0.82 Calcium 10.8 H Urine 12/24/22 Range/Units 10:38 Urine Color Dark Yellow Urine Appearance Cloudy Urine pH 5.5 (5.0-9.0) Ur Specific [place] >= 1.030 H (1.005-1.025) Urine Protein 300 (3+) H (Neg-Trace) mg/dL Urine Glucose (UA) Negative (Negative) mg/dL All other labs normal. Assessment and Plan (1) Pressure injury of left heel, stage 3: Status: Acute (2) Pressure ulcer of right leg, stage 3: Status: Acute (3) Decubitus ulcer of left buttock, unstageable: Status: Acute (4) Decubitus ulcer of buttock, right, unstageable: Status: Acute Plan 62-year-old female patient, known to the service with bilateral buttock decubitus ulceration as well as bilateral heel ulceration returning before gross hematuria. Wounds were examined although it is difficult to see the entire extent of the buttock wounds, they are at least stage 3-4. CT abdomen and pelvis suggest extension of ulceration on the left side up to the ischium. Granulation tissue is noted on the margins with no necrotic skin or deep abscess appreciated. Suggest packing the buttock wounds with wet to dry saline dressings. As much as possible pressure should be kept off her buttock wounds, rolling side to side. Heel ulcers appear to have silver alginate currently. I would continue silver alginate to the heel ulcers daily followed by fluffed gauze and Kerlix. New pressure reduction to the heels as well with heel protectors and pillows. Patient may eventually be a candidate for wound VAC to the buttock wounds although wounds may be too deep at this point Time Spent With Patient Time: Total time managing care of this patient today ____ minutes. Procedures Date of Service Date of Service: 12/25/22
--- NOTE | 2022-12-25 10:50 | MHC.CM.PN ---
Attempted to meet with patient in regards to discharge planning. 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 Spoke with guardian, Edith, via telephone at [phone]. Patient is non-verbal at baseline. Anticipate patient will return to [facility] via BLS when medically stable. Patient received 4 Pfizer vaccines. T/W is attempting to obtain a copy of patient's Guardianship from [facility]. IMM explained and sent to Edith via certified mail. Continue to monitor for d/c needs.
--- NOTE | 2022-12-25 10:53 | PC.NURSE ---
pt confused at baseline but able to follow verbal commands. respirations equal and unlabored. G-tube meds given, tolerated well, no redness or swelling noted at g-tube site. pt repositioned to left side.
--- NOTE | 2022-12-25 10:57 | HO.PM.IMPN ---
Subjective Subjective Date of Service: 12/25/22 Interval History: multiple decubiti minimally verbal Review of Systems Review of Systems: Yes Unobtainable due to mental condition Physical Exam Vital Signs: Vital Signs: Last Vital Signs Temp 97.0 F 12/25/22 05:33 Pulse 97 12/25/22 05:33 Resp 18 12/25/22 05:33 BP 133/94 H 12/25/22 05:33 Pulse Ox 96 12/25/22 05:33 O2 Del Method Room Air 12/25/22 05:33 O2 Flow Rate 2 12/24/22 10:27 BMI result Body Mass Index 30.0 Objective Data Active Medications Acetaminophen (Acetaminophen 325 Mg Tablet) 650 mg PO Q6H PRN PRN Reason: Pain, Mild (Pain Scale 1-3) Acetaminophen (Acetaminophen Child Oral Liq 160 Mg/5 Ml Ud Cup) 960 mg G-TUBE TID [facility] Last Admin: 12/25/22 10:06 Dose: 960 mg Documented By: ONEILA Apixaban (Apixaban 2.5 Mg Tablet) 2.5 mg G-TUBE BID [facility] Last Admin: 12/25/22 10:07 Dose: 2.5 mg Documented By: ONELIA Ascorbic Acid (Ascorbic Acid 500 Mg Tablet) 1,000 mg G-TUBE BID [facility] Last Admin: 12/25/22 10:07 Dose: 1,000 mg Documented By: ONELIA Atorvastatin Calcium (Atorvastatin Calcium 10 Mg Tablet) 10 mg G-TUBE DAILY [facility] Last Admin: 12/25/22 10:07 Dose: 10 mg Documented By: ONELIA Bisacodyl (Bisacodyl 10 Mg Supp.Rect) 10 mg HI DAILY PRN PRN Reason: Constipation Docusate Sodium (Docusate Sodium 100 Mg Capsule) 100 mg PO DAILY PRN PRN Reason: Constipation Cefepime HCl 2 gm/ Sodium (Chloride) 50 mls @ 100 mls/hr IV Q8H [facility] Last Infusion: 12/25/22 08:38 Dose: 0 mls/hr Documented By: DANIELA Vancomycin HCl 750 mg/ Sodium (Chloride) 265 mls @ 265 mls/hr IV Q12H [facility] Last Admin: 12/25/22 10:08 Dose: 265 mls/hr Documented By: ONELIA Lactulose (Lactulose 20 Gm/30 Ml Solution) 20 gm G-TUBE BID [facility] Last Admin: 12/25/22 10:07 Dose: 20 gm Documented By: ONELIA Levothyroxine Sodium (Levothyroxine Sodium 100 Mcg Tablet) 100 mcg G-TUBE DAILY@0630 [facility] Last Admin: 12/25/22 05:53 Dose: 100 mcg Documented By: ANGELY Mirtazapine (Mirtazapine 7.5 Mg Tablet) 7.5 mg G-TUBE BEDTIME [facility] Last Admin: 12/24/22 22:30 Dose: 7.5 mg Documented By: ANGELY Ondansetron HCl (Ondansetron Hcl 4 Mg/2 Ml Vial) 4 mg IVPUSH Q8H PRN PRN Reason: Nausea and Vomiting Pharmacy Consult (Consult Rx Perform Med Rec) 1 each MISCELLANE ONCE PRN PRN Reason: Consult order Pharmacy Consult (Consult Rx Vancomycin Dosing) 1 each MISCELLANE DAILY PRN PRN Reason: Consult order Quetiapine Fumarate (Quetiapine Fumarate 50 Mg Tablet) 50 mg G-TUBE TID [facility] Last Admin: 12/25/22 10:07 Dose: 50 mg Documented By: ONELIA Sodium Biphosphate/Sodium Phosphate (Sodium Phosphate,[place]-Dibasic 133 Ml Enema) 118 ml [place] DAILY PRN PRN Reason: Constipation Sodium Chloride (0.9 % Sodium Chloride Flush 3 Ml Syringe) 3 ml IVFLUSH QSHIFT [facility] Last Admin: 12/25/22 07:42 Dose: 3 ml Documented By: DANIELA Trazodone HCl (Trazodone Hcl 100 Mg Tablet) 200 mg G-TUBE BID@0600,1800 [facility] Last Admin: 12/25/22 05:53 Dose: 200 mg Documented By: ANGELY Valproic Acid (Valproic Acid (As Sodium Salt) 250 Mg/5 Ml Solution) 1,000 mg G-TUBE BID [facility] Last Admin: 12/25/22 10:06 Dose: 1,000 mg Documented By: ONELIA Labs 12/25/22 05:44 12/25/22 05:44 Labs: Laboratory Results - last 24 hr 12/24/22 12/24/22 12/24/22 07:45 07:45 10:38 MCV MCH MCHC RDW Plt Count MPV Immature Gran % (Auto) Neut % (Auto) Lymph % (Auto) [place] % (Auto) Eos % (Auto) Baso % (Auto) Lymph # (Auto) [place] # (Auto) Eos # (Auto) Baso # (Auto) Abs Immat Gran (auto) Absolute Neuts (auto) Absolute Nucleated RBC Nucleated RBC % (auto) ESR 114 H Anion Gap Estim Creat Clear Calc Estimated GFR Random Glucose Calcium C-Reactive Protein 6.79 H Urine Color Dark Yellow Urine Appearance Cloudy Urine pH 5.5 Ur Specific [place] >= 1.030 H Urine Protein 300 (3+) H Urine Glucose (UA) Negative Urine Ketones Negative Urine Blood Large (3+) H Urine Nitrite Negative Ur Leukocyte Esterase Large (3+) H Urine RBC >20 H Urine WBC >50 H Ur Squamous Epith Cells 0-2 Urine Bacteria Trace Hyaline Casts 3-5 12/25/22 12/25/22 05:44 05:44 MCV 100.7 H MCH 28.8 MCHC 28.6 L RDW 19.2 H Plt Count 283 MPV 10.9 Immature Gran % (Auto) 1.5 H Neut % (Auto) 61.9 Lymph % (Auto) 23.1 [place] % (Auto) 11.4 H Eos % (Auto) 1.2 Baso % (Auto) 0.9 Lymph # (Auto) 1.7 [place] # (Auto) 0.9 Eos # (Auto) 0.1 Baso # (Auto) 0.1 Abs Immat Gran (auto) 0.11 H Absolute Neuts (auto) 4.6 Absolute Nucleated RBC 0.000 Nucleated RBC % (auto) 0.0 ESR Anion Gap 13 Estim Creat Clear Calc 82.1 Estimated GFR > 60 Random Glucose 81 Calcium 10.8 H C-Reactive Protein Urine Color Urine Appearance Urine pH Ur Specific [place] Urine Protein Urine Glucose (UA) Urine Ketones Urine Blood Urine Nitrite Ur Leukocyte Esterase Urine RBC Urine WBC Ur Squamous Epith Cells Urine Bacteria Hyaline Casts Microbiology Microbiology Results: Microbiology 12/24/22 07:49 Blood Culture - Preliminary Blood - Venous No growth after 24 hours. 12/24/22 07:45 Blood Culture - Preliminary Blood - Venous No growth after 24 hours. Assessment and Plan (1) Sepsis: Status: Acute Plan 62F from [facility] with past medical history of congenital intellectual disability, frontotemporal cognitive disorder, HLD, seizures, hypothyroidism, PE on Eliquis, schizoaffective disorder, hypertension, multiple pressure ulcers, UTIs with chronic Randall, recent prolonged hospital admission (09/29-11/10 for aspiration PNA, sepsis, w/ PEG tube placement) admitted for sepsis related to UTI as well as multiple infected decubitus ulcers. Sepsis- related to UTI +/- infected decubitus ulcers unstageable ulcers to the bilateral buttock, stage3 ulcers to bilateral heels, stage 1 ulcer right lateral malleolus History +wound cultures from left heel growing MRSA, and proteus General surgery consult Continue IV vanco and cefepime Follow Cultures osteomyelitis L ischium- unspecified chronicity ID consult Continue vanco, cefepime Chronic dysphagia with PEG tube in place continue tube feeding diet Also takes pureed/nectar thick diet per [employer] last admission Hypothyroidism continue synthroid Mood disorder continue seroquel Large reducible hernia- suprapubic region no incarceration or strangulation outpt follow up history of pe eliquis Full code reason for continued hospitalization: iv abx, awaiting cultures Time Spent With Patient Time: Total time managing care of this patient today ____ minutes. Quality Stroke Does the patient have a stroke diagnosis?: No VTE Prior VTE?: No VTE Risk Level:: Medical - moderate - high VTE Device Contraindication: Treatment Not Indicated VTE Drug Contraindication: N/A - Med Ordered
--- NOTE | 2022-12-25 12:13 | MHC.SLORD ---
Speech Language Pathology Order Status: Order received for bedside swallow eval. Pt is familiar to [employer]- Was hospitalized 09/29-11/10 for aspiration pneumonia and sepsis. Pt was followed by [employer] during this time, MBSS was done 10/23 and revealed silent aspiration with thin liquid. Decision was made to proceed w/ PEG, pt was recommended NDD1/NTL to supplement. [employer] called and spoke with staff from pt's LTC facility, [facility]. There, pt was receiving everything through PEG. Pt was getting PO with [employer] only- container of pudding each time therapeutically. [employer] attempted to see pt this morning in ED. Pt was in a deep sleep, not waking to sternal rub. Not appropriate for PO trails at this time. Per RN, pt had just gotten her morning meds. [place] message w/ this information sent to , RN, RD. [employer] will continue to follow.
--- NOTE | 2022-12-25 12:37 | PC.NURSE ---
report given to
--- NOTE | 2022-12-25 15:21 | W.PM.IDCN ---
History of Present Illness Data of Consult Service Date: 12/25/22 Requesting physician: Corbin Terry Primary Care Provider: Ondina Sewell MD HPI Reason for consult: hematuria She presents via EMS to ER with hematuria. She has also deep ulcer left buttock c/w osteomyelitsi. She has chronic Randall. She was admitted with pneumonia and sepsis 09/19-11/10/2022. She had peg. She is on Cefepime and Vancomycin. Blood cultures are negative. 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 Hyperlipidemia Hypertension Hypothyroidism Intellectual disability Pressure injury of left heel, stage 3 Pressure sore on ankle Pressure ulcer of right leg, stage 3 Pulmonary embolism Schizoaffective disorder Family History Family history: reviewed and not pertinent Surgical History Surgical History S/P percutaneous endoscopic gastrostomy (PEG) tube placement Social History Social History Household Members: Unknown / Unable to assess Housing: [facility] Unable to assess alcohol history related to: Unknown Alcohol intake: unknown Patient Tobacco Use Status: Tobacco use Unknown service: No Current occupational status: disabled Meds Allergies Allergy/AdvReac Type Severity Reaction Status Date / Time aspirin Allergy Unknown Verified 12/24/22 07:25 chlorproethazine Allergy Unknown Verified 12/24/22 07:25 codeine Allergy Unknown Verified 12/24/22 07:25 guaifenesin Allergy Unknown Verified 12/24/22 07:25 Penicillins Allergy Unknown Verified 12/24/22 07:25 phenytoin Allergy Unknown Verified 12/24/22 07:25 potassium [From Potassimin] Allergy Unknown Verified 12/24/22 07:25 Active Medications: Current Medications Acetaminophen (Acetaminophen 325 Mg Tablet) 650 mg PO Q6H PRN PRN Reason: Pain, Mild (Pain Scale 1-3) Acetaminophen (Acetaminophen Oral Liquid 650 Mg/20.3 Ml Solution) 975 mg G-TUBE TID [facility] Apixaban (Apixaban 2.5 Mg Tablet) 2.5 mg G-TUBE BID [facility] Last Admin: 12/25/22 10:07 Dose: 2.5 mg Ascorbic Acid (Ascorbic Acid 500 Mg Tablet) 1,000 mg G-TUBE BID [facility] Last Admin: 12/25/22 10:07 Dose: 1,000 mg Atorvastatin Calcium (Atorvastatin Calcium 10 Mg Tablet) 10 mg G-TUBE DAILY [facility] Last Admin: 12/25/22 10:07 Dose: 10 mg Bisacodyl (Bisacodyl 10 Mg Supp.Rect) 10 mg DE DAILY PRN PRN Reason: Constipation Docusate Sodium (Docusate Sodium 100 Mg Capsule) 100 mg PO DAILY PRN PRN Reason: Constipation Cefepime HCl 2 gm/ Sodium (Chloride) 50 mls @ 100 mls/hr IV Q8H [facility] Last Infusion: 12/25/22 08:38 Dose: Infused Vancomycin HCl 750 mg/ Sodium (Chloride) 265 mls @ 265 mls/hr IV Q12H [facility] Last Infusion: 12/25/22 11:56 Dose: Infused Lactulose (Lactulose 20 Gm/30 Ml Solution) 20 gm G-TUBE BID [facility] Last Admin: 12/25/22 10:07 Dose: 20 gm Levothyroxine Sodium (Levothyroxine Sodium 100 Mcg Tablet) 100 mcg G-TUBE DAILY@0630 [facility] Last Admin: 12/25/22 05:53 Dose: 100 mcg Mirtazapine (Mirtazapine 7.5 Mg Tablet) 7.5 mg G-TUBE BEDTIME [facility] Last Admin: 12/24/22 22:30 Dose: 7.5 mg Ondansetron HCl (Ondansetron Hcl 4 Mg/2 Ml Vial) 4 mg IVPUSH Q8H PRN PRN Reason: Nausea and Vomiting Pharmacy Consult (Consult Rx Perform Med Rec) 1 each MISCELLANE ONCE PRN PRN Reason: Consult order Pharmacy Consult (Consult Rx Vancomycin Dosing) 1 each MISCELLANE DAILY PRN PRN Reason: Consult order Quetiapine Fumarate (Quetiapine Fumarate 50 Mg Tablet) 50 mg G-TUBE TID [facility] Last Admin: 12/25/22 10:07 Dose: 50 mg Sodium Biphosphate/Sodium Phosphate (Sodium Phosphate,[place]-Dibasic 133 Ml Enema) 118 ml DE DAILY PRN PRN Reason: Constipation Sodium Chloride (0.9 % Sodium Chloride Flush 3 Ml Syringe) 3 ml IVFLUSH QSHIFT [facility] Last Admin: 12/25/22 07:42 Dose: 3 ml Trazodone HCl (Trazodone Hcl 100 Mg Tablet) 200 mg G-TUBE BID@0600,1800 [facility] Last Admin: 12/25/22 05:53 Dose: 200 mg Valproic Acid (Valproic Acid (As Sodium Salt) 250 Mg/5 Ml Solution) 1,000 mg G-TUBE BID [facility] Last Admin: 12/25/22 10:06 Dose: 1,000 mg Home Medications Medication Instructions Recorded Confirmed Last Taken Type apixaban 2.5 mg tablet (Eliquis) 2.5 mg feeding tube BID 01/02/22 12/24/22 12/24/22 History atorvastatin 10 mg tablet 10 mg feeding tube DAILY 01/02/22 12/24/22 12/24/22 History lactulose 10 gram/15 mL oral 20 g feeding tube BID 01/02/22 12/24/22 12/24/22 History solution (Enulose) mirtazapine 7.5 mg tablet 7.5 mg feeding tube DAILY 01/02/22 12/24/22 12/24/22 History quetiapine 50 mg tablet 50 mg feeding tube TID 01/02/22 12/24/22 12/24/22 History trazodone 100 mg tablet 200 mg feeding tube BID 01/02/22 12/24/22 12/24/22 History ascorbic acid (vitamin C) 1,000 mg 1,000 mg feeding tube BID 09/29/22 12/24/22 12/24/22 History tablet (Vitamin C) bisacodyl 10 mg rectal suppository 10 mg DE DAILY PRN Constipation 09/29/22 12/24/22 Unknown History tramadol 50 mg tablet 50 mg feeding tube Q12H PRN Pain 09/29/22 12/24/22 12/19/22 History acetaminophen 160 mg/5 mL oral 960 mg feeding tube TID 12/24/22 12/24/22 12/24/22 History elixir amino acids-protein hydrolysate 15 30 ea feeding tube BID 12/24/22 12/24/22 12/24/22 History gram-100 kcal/30 mL oral liquid doxycycline hyclate 100 mg tablet 100 mg feeding tube BID 12/24/22 12/24/22 12/24/22 History levothyroxine 100 mcg tablet 100 mcg feeding tube DAILY@0630 12/24/22 12/24/22 12/24/22 History sodium phosphates 19 gram-7 118 ml DE DAILY PRN Constipation 12/24/22 12/24/22 Unknown History gram/118 mL enema (Fleet Enema) valproic acid (as sodium salt) 250 1,000 mg feeding tube BID 12/24/22 12/24/22 12/24/22 History mg/5 mL (5 mL) oral solution Physical Exam Vital Signs: Vital Signs: Last Vital Signs Temp 97.2 F 12/25/22 13:10 Pulse 95 12/25/22 13:10 Resp 20 12/25/22 13:10 BP 114/58 L 12/25/22 13:10 Pulse Ox 93 12/25/22 13:10 O2 Del Method Room Air 12/25/22 13:10 O2 Flow Rate 2 12/24/22 10:27 BMI result Body Mass Index 30.7 Const: General: cooperative HEENT: Head: Yes normal to inspection Face and sinus: Yes normal facial exam Mouth: Normal oral and palatal mucosa present Teeth and gingiva: dentition normal Eyes: General: appearance normal, both eyes and all related structures Pupils: Equal, round and reactive pupils present Resp: Effort & Inspection: normal respiratory effort Cardio: Rate: regular rate Rhythm: regular rhythm GI: Palpation (GI): Soft to palpation and nontender : General: Yes no CVA tenderness Back/Spine/Pelvis: Back: no CVA tenderness Skin: General skin exam: no rashes or lesions noted Neuro: General: moves all extremities Cranial nerves: Yes Equal, round and reactive pupils present Extrem: Other: left buttock ulcers deep to probe to bone General: Yes normal to inspection Psych: Other: somnolent Results Labs 12/25/22 05:44 12/25/22 05:44 Labs: Short CBC 12/25/22 Range/Units 05:44 WBC 7.5 (4.8-10.8) X10*3/uL Hgb 8.4 L (12.0-16.0) g/dl Hct 29.4 L (37.0-47.0) % Plt Count 283 (160-400) X10*3/uL BMP 12/25/22 05:44 Sodium 144 Potassium 4.4 Chloride 110 H Carbon Dioxide 25 BUN 33 H Creatinine 0.82 Calcium 10.8 H Microbiology Microbiology Results: Microbiology 12/24/22 Unknown Urine Catheterized - Randall Catheter Urine Culture - Final No growth. 12/24/22 07:49 Blood - Venous Blood Culture - Preliminary No growth after 24 hours. 12/24/22 07:45 Blood - Venous Blood Culture - Preliminary No growth after 24 hours. Assessment and Plan (1) Sepsis: Status: Acute (2) UTI (urinary tract infection): Status: Acute (3) Decubitus ulcer of left buttock, unstageable: Status: Acute Concern over deep ulcer osteomyelitis. There also is urinary source possible with Randall. Plan Await urine cultures/final blood cultures. She has hematuria. Would use Ertapenem or Vancomycin six weeks depending on cultures deep wound buttocks if able. Urology follow hematuria. Time Spent With Patient Time: Total time managing care of this patient today ____ minutes.
[2022-12-25] MEDS: Acetaminophen Oral Liquid 650 MG/20.3 ML SOLUTION 975 MG G-TUBE ×2 (15:44→22:23)
--- NOTE | 2022-12-25 15:55 | MHC.CM.ED ---
Guardianship expansion order and Steve's Order with treatment plans obtained from [facility] and uploaded into [facility] and [facility] [employer].
[2022-12-25] MEDS: Mirtazapine 7.5 MG TABLET G-TUBE (22:25)
[2022-12-26 03:21] VITALS: BP 126/57; PULSE 86; RESP 18; TEMP 36.1; O2SAT 96
[2022-12-26] MEDS: traZODone HCL 100 MG TABLET 200 MG G-TUBE ×2 (06:10→17:56)
[2022-12-26] MEDS: Levothyroxine Sodium 100 MCG TABLET G-TUBE (06:11)
[2022-12-26 07:24] VITALS: BP 125/60; PULSE 90; RESP 20; TEMP 36.3; O2SAT 99
[2022-12-26] MEDS: Lactulose 20 GM/30 ML SOLUTION G-TUBE ×2 (07:44→21:27)
[2022-12-26] MEDS: Acetaminophen Oral Liquid 650 MG/20.3 ML SOLUTION 975 MG G-TUBE ×3 (07:44→21:28)
[2022-12-26] MEDS: Ascorbic Acid 500 MG TABLET 1000 MG G-TUBE ×2 (07:45→21:27)
[2022-12-26] MEDS: Atorvastatin Calcium 10 MG TABLET G-TUBE (07:45)
[2022-12-26] MEDS: QUEtiapine Fumarate 50 MG TABLET G-TUBE ×3 (07:45→21:27)
[2022-12-26] MEDS: Apixaban 2.5 MG TABLET G-TUBE ×2 (07:45→21:27)
[2022-12-26 08:17] LABS: Hematocrit 28.7 % (37.0-47.0); Hemoglobin 8.2 g/dl (12.0-16.0); Mean Corpuscular HGB Conc 28.6 g/dl (31.0-35.0); Mean Corpuscular Hemoglobin 28.7 pg (27.0-33.0); Mean Corpuscular Volume 100.3 fL (80.0-98.0); Mean Platelet Volume 11.1 fL (9.4-12.3); Platelet Count 276 X10*3/uL (160-400); Red Blood Count 2.86 X10*6/uL (4.20-5.50); Red Cell Distribution Width 19.3 % (11.0-16.0); White Blood Count 7.4 X10*3/uL (4.8-10.8)
[2022-12-26 08:29] LABS: Anion Gap 13 (12-20); Blood Urea Nitrogen 27 mg/dL (9-16); Calcium 11.3 mg/dL (8.4-10.2); Carbon Dioxide 21 mmol/L (22-29); Chloride 116 mmol/L (96-108); Creatinine Clr Calc Pharmacy 80.2; Estimated Glomerular Filt Rate > 60; Glucose Fasting 97 mg/dL (60-99); Potassium 3.9 mmol/L (3.3-5.1); Sodium 146 mmol/L (135-145)
[2022-12-26 08:34] LABS: Vancomycin Random 22.2 mcg/mL (15-20)
--- NOTE | 2022-12-26 09:13 | P.PNIM_ITS ---
Subjective Subjective Date of Service: 12/26/22 Interval History: multiple decubiti minimally verbal Review of Systems Review of Systems: Yes Unobtainable due to mental condition Physical Exam Vital Signs: Vital Signs: Last Vital Signs Temp 97.3 F 12/26/22 07:24 Pulse 90 12/26/22 07:24 Resp 20 12/26/22 07:24 BP 125/60 12/26/22 07:24 Pulse Ox 99 12/26/22 07:24 O2 Del Method Room Air 12/26/22 07:24 O2 Flow Rate 2 12/24/22 10:27 BMI result Body Mass Index 30.7 Const: General: cooperative HEENT: Head: Yes normal to inspection Face and sinus: Yes normal facial e xam Mouth: Normal oral and palatal mucosa present Teeth and gingiva: dentition normal Eyes: General: appearance normal, both eyes and all related structures Pupils: Equal, round and reactive pupils present Resp: Effort & Inspection: normal respiratory effort Cardio: Rate: regular rate Rhythm: regular rhythm GI: Palpation (GI): Soft to palpation and nontender : General: Yes no CVA tenderness Back/Spine/Pelvis: Back: no CVA tenderness Skin: General skin exam: no rashes or lesions noted Neuro: General: moves all extremities Cranial nerves: Yes Equal, round and reactive pupils present Extrem: Other: left buttock ulcers deep to probe to bone General: Yes normal to inspection Psych: Other: somnolent Objective Data Active Medications Acetaminophen (Acetaminophen 325 Mg Tablet) 650 mg PO Q6H PRN PRN Reason: Pain, Mild (Pain Scale 1-3) Acetaminophen (Acetaminophen Oral Liquid 650 Mg/20.3 Ml Solution) 975 mg G-TUBE TID [facility] Last Admin: 12/26/22 07:44 Dose: 975 mg Documented By: COTEMA Apixaban (Apixaban 2.5 Mg Tablet) 2.5 mg G-TUBE BID [facility] Last Admin: 12/26/22 07:45 Dose: 2.5 mg Documented By: COTEMA Ascorbic Acid (Ascorbic Acid 500 Mg Tablet) 1,000 mg G-TUBE BID [facility] Last Admin: 12/26/22 07:45 Dose: 1,000 mg Documented By: JHONATHANEMA Atorvastatin Calcium (Atorvastatin Calcium 10 Mg Tablet) 10 mg G-TUBE DAILY [facility] Last Admin: 12/26/22 07:45 Dose: 10 mg Documented By: COTMADDI Bisacodyl (Bisacodyl 10 Mg Supp.Rect) 10 mg DE DAILY PRN PRN Reason: Constipation Docusate Sodium (Docusate Sodium 100 Mg Capsule) 100 mg PO DAILY PRN PRN Reason: Constipation Cefepime HCl 2 gm/ Sodium (Chloride) 50 mls @ 100 mls/hr IV Q8H [facility] Last Infusion: 12/26/22 08:27 Dose: 0 mls/hr Documented By: COTEMA Vancomycin HCl 1,000 mg/ (Sodium Chloride) 270 mls @ 270 mls/hr IV Q24H [facility] Lactulose (Lactulose 20 Gm/30 Ml Solution) 20 gm G-TUBE BID [facility] Last Admin: 12/26/22 07:44 Dose: 20 gm Documented By: COTEMA Levothyroxine Sodium (Levothyroxine Sodium 100 Mcg Tablet) 100 mcg G-TUBE DAILY@0630 [facility] Last Admin: 12/26/22 06:11 Dose: 100 mcg Documented By: ESTEFANI Mirtazapine (Mirtazapine 7.5 Mg Tablet) 7.5 mg G-TUBE BEDTIME [facility] Last Admin: 12/25/22 22:25 Dose: 7.5 mg Documented By: ESTEFANI Ondansetron HCl (Ondansetron Hcl 4 Mg/2 Ml Vial) 4 mg IVPUSH Q8H PRN PRN Reason: Nausea and Vomiting Pharmacy Consult (Consult Rx Perform Med Rec) 1 each MISCELLANE ONCE PRN PRN Reason: Consult order Pharmacy Consult (Consult Rx Vancomycin Dosing) 1 each MISCELLANE DAILY PRN PRN Reason: Consult order Quetiapine Fumarate (Quetiapine Fumarate 50 Mg Tablet) 50 mg G-TUBE TID [facility] Last Admin: 12/26/22 07:45 Dose: 50 mg Documented By: ALLEN Sodium Biphosphate/Sodium Phosphate (Sodium Phosphate,[place]-Dibasic 133 Ml Enema) 118 ml DE DAILY PRN PRN Reason: Constipation Sodium Chloride (0.9 % Sodium Chloride Flush 3 Ml Syringe) 3 ml IVFLUSH QSHIFT [facility] Last Admin: 12/26/22 07:46 Dose: 3 ml Documented By: JHONATHANEMA Trazodone HCl (Trazodone Hcl 100 Mg Tablet) 200 mg G-TUBE BID@0600,1800 [facility] Last Admin: 12/26/22 06:10 Dose: 200 mg Documented By: ESTEFANI Valproic Acid (Valproic Acid (As Sodium Salt) 250 Mg/5 Ml Solution) 1,000 mg G- TUBE BID [facility] Last Admin: 12/26/22 07:44 Dose: 1,000 mg Documented By: ALLEN Labs 12/26/22 08:02 12/26/22 08:02 Labs: Laboratory Results - last 24 hr 12/25/22 12/26/22 12/26/22 20:09 08:02 08:02 MCV 100.3 H MCH 28.7 MCHC 28.6 L RDW 19.3 H Plt Count 276 MPV 11.1 Absolute Nucleated RBC 0.000 Nucleated RBC % (auto) 0.0 Anion Gap 13 Estim Creat Clear Calc 80.2 Estimated GFR > 60 Fasting Glucose 97 Calcium 11.3 H Vancomycin Trough 27.0 H* Random Vancomycin 12/26/22 08:02 MCV MCH MCHC RDW Plt Count MPV Absolute Nucleated RBC Nucleated RBC % (auto) Anion Gap Estim Creat Clear Calc Estimated GFR Fasting Glucose Calcium Vancomycin Trough Random Vancomycin 22.2 H Microbiology Microbiology Results: Microbiology 12/24/22 Unknown Urine Culture - Final Urine Catheterized - Randall Catheter No growth. 12/24/22 07:49 Blood Culture - Preliminary Blood - Venous No growth after 24 hours. 12/24/22 07:45 Blood Culture - Preliminary Blood - Venous No growth after 24 hours. Assessment and Plan (1) Sepsis: Status: Acute Plan 62F from [facility] with past medical history of congenital intellectual disability, frontotemporal cognitive disorder, HLD, seizures, hypothyroidism, PE on Eliquis, schizoaffective disorder, hypertension, multiple pressure ulcers, UTIs with chronic Randall, recent prolonged hospital admission (09/29-11/10 for aspiration PNA, sepsis, w/ PEG tube placement) admitted for sepsis related to UTI as well as multiple infected decubitus ulcers. Sepsis- related to UTI +/- infected decubitus ulcers unstageable ulcers to the bilateral buttock, stage3 ulcers to bilateral heels, stage 1 ulcer right lateral malleolus History +wound cultures from left heel growing MRSA, and proteus General surgery appreciated - local care, may need wound vac in future, but currently ulcer not ammenable to it Continue IV vanco and cefepime Follow Cultures osteomyelitis L ischium- unspecified chronicity ID appreciated likely prison iv abx, follow up cultures Chronic dysphagia with PEG tube in place continue tube feeding diet Hypothyroidism continue synthroid Mood disorder continue seroquel Large reducible hernia- suprapubic region no incarceration or strangulation outpt follow up history of pe eliquis Full code reason for continued hospitalization: iv abx, awaiting cultures Time Spent With Patient Time: Total time managing care of this patient today ____ minutes. Quality Stroke Does the patient have a stroke diagnosis?: No VTE Prior VTE?: No VTE Risk Level:: Medical - moderate - high VTE Device Contraindication: Treatment Not Indicated VTE Drug Contraindication: N/A - Med Ordered
--- NOTE | 2022-12-26 09:45 | MHC.CLN ---
F/U PT WITH INCREASED NUTRITION RISK R/T PRESSURE INJURIES RECOMMEND CHANGE TO TF FORMULA: OSMOLITE 1.5 AT MAX GOAL RATE 60ML/HR WITH 30ML PROSOURCE X1 PER DAY AND 240ML FREE WATER FLUSHES Q 4 HRS TO PROVIDE 2220 TOTAL KCALS (31KCLAS/KG BASED ON CMW), 105G TOTAL PROTEIN (1.5G/KG), 2537ML TOTAL WATER FROM FORMULA AND FLUSHES (35ML/KG) FORMULA SUITABLE TO PROMOTE WOUND HEALING MONITOR TOLERANCE, RESIDUALS AND LYTES
[2022-12-26 11:25] VITALS: BP 139/76; PULSE 101; RESP 20; TEMP 36.3; O2SAT 99
--- NOTE | 2022-12-26 12:50 | P.CDIM_ITS ---
PROVIDER RESPONSE TEXT: To clarify, the appropriate diagnosis supported by the clinical indicators: Acute osteomyelitis left ischium QUERY TEXT: PHYSICIAN'S DOCUMENTATION REQUEST Date of Query: 12/26/2022 12:15 PM EDT Patient Name: MIKO DAVID Admit Date: 12/24/2022 Dear Corbin Terry, A review of the medical record indicates additional documentation may be needed. Please review below and update the documentation accordingly. 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 Acute osteomyelitis left ischium Subacute osteomyelitis Chronic osteomyelitis Acute on chronic osteomyelitis Other Other (explain)Clinically unable to determine (explain)Thank you, Catina Rodriguez, CCS, CDIS Use of terms such as suspected, likely, concern for, or probable (associated with a specific diagnosi s that is being evaluated, monitored, or treated as if it exists) are acceptable and can be coded in the inpatient se tting, when documented at the time of discharge. Please use your independent medical judgment in providing your response. THIS QUERY IS PART OF THE PERMANENT MEDICAL RECORD
[2022-12-26 15:22] VITALS: BP 169/74; PULSE 115; RESP 20; TEMP 36.4; O2SAT 100
[2022-12-26 17:08] LABS: Vitamin D 25-OH Total 36.2 ng/mL (>30)
[2022-12-26 19:33] VITALS: BP 146/70; PULSE 94; RESP 16; TEMP 36.1; O2SAT 94
[2022-12-26] MEDS: Mirtazapine 7.5 MG TABLET G-TUBE (21:27)
[2022-12-26 23:36] VITALS: BP 142/65; PULSE 101; RESP 18; TEMP 37; O2SAT 92
[2022-12-27 03:15] VITALS: BP 145/65; PULSE 99; RESP 18; TEMP 37.2; O2SAT 98
[2022-12-27] MEDS: Levothyroxine Sodium 100 MCG TABLET G-TUBE (06:08)
[2022-12-27] MEDS: traZODone HCL 100 MG TABLET 200 MG G-TUBE ×2 (06:08→18:04)
[2022-12-27 06:50] LABS: Hemoglobin 7.5 g/dl (12.0-16.0); Mean Corpuscular HGB Conc 28.8 g/dl (31.0-35.0); Mean Corpuscular Hemoglobin 29.2 pg (27.0-33.0); Mean Corpuscular Volume 101.2 fL (80.0-98.0); Mean Platelet Volume 10.5 fL (9.4-12.3); NRBC Pct Auto 0.4 /100WBC (0.0-0.2); Platelet Count 269 X10*3/uL (160-400); Red Blood Count 2.57 X10*6/uL (4.20-5.50); Red Cell Distribution Width 19.6 % (11.0-16.0); White Blood Count 7.7 X10*3/uL (4.8-10.8)
[2022-12-27 07:07] LABS: Anion Gap 14 (12-20); Blood Urea Nitrogen 29 mg/dL (9-16); Calcium 11.1 mg/dL (8.4-10.2); Carbon Dioxide 21 mmol/L (22-29); Chloride 115 mmol/L (96-108); Creatinine Clr Calc Pharmacy 82.1; Estimated Glomerular Filt Rate > 60; Glucose Fasting 75 mg/dL (60-99); Potassium 4.1 mmol/L (3.3-5.1); Sodium 146 mmol/L (135-145)
[2022-12-27 07:26] VITALS: BP 131/61; PULSE 95; RESP 18; TEMP 36.3; O2SAT 98
[2022-12-27 07:28] LABS: Vancomycin Random 16.6 mcg/mL (15-20)
[2022-12-27] MEDS: Lactulose 20 GM/30 ML SOLUTION G-TUBE ×2 (09:14→22:29)
[2022-12-27] MEDS: Ascorbic Acid 500 MG TABLET 1000 MG G-TUBE ×2 (09:15→22:29)
[2022-12-27] MEDS: Apixaban 2.5 MG TABLET G-TUBE ×2 (09:15→22:29)
[2022-12-27] MEDS: QUEtiapine Fumarate 50 MG TABLET G-TUBE ×3 (09:15→22:29)
[2022-12-27] MEDS: vancomycin HCL 750 MG in 0.9 % Sodium Chloride 250 ML 265 MG IV (09:15)
[2022-12-27] MEDS: Atorvastatin Calcium 10 MG TABLET G-TUBE (09:15)
[2022-12-27] MEDS: Acetaminophen Oral Liquid 650 MG/20.3 ML SOLUTION 975 MG G-TUBE ×3 (09:25→22:28)
--- NOTE | 2022-12-27 10:24 | MHC.CM.PN ---
Per ROUNDS discussion, Patient is not yet medically cleared for dc (will need a PICC); returning to LTC @ [facility] is the goal and CM will continue to follow.
[2022-12-27 11:35] VITALS: BP 135/62; PULSE 104; RESP 18; TEMP 36.3; O2SAT 97
--- NOTE | 2022-12-27 11:50 | P.PNIM_ITS ---
Subjective Subjective Date of Service: 12/27/22 Interval History: Seen and evaluated this morning unable to provide any significant information No reported overnight events Review of Systems Review of Systems: Yes Unobtainable due to mental condition Physical Exam Vital Signs: Vital Signs: Last Vital Signs Temp 97.3 F 12/27/22 11:35 Pulse 104 H 12/27/22 11:35 Resp 18 12/27/22 11:35 BP 135/62 12/27/22 11:35 Pulse Ox 97 12/27/22 11:35 O2 Del Method Room Air 12/27/22 11:35 O2 Flow Rate 2 12/24/22 10:27 BMI result Body Mass Index 30.7 Const: Other: Constitutional : Awake, interactive with sounds and bed movements, not in distr ess Neck : Normal inspection, Supple Cardiovascular : RRR, no JVP, no lower extremity edema Respiratory : good bilateral air entry, no crackles, wheezes or rhonchi Gastrointestinal: soft, lax, Normal bowel sounds, Non tender Skin : Warm, Dry Neurological : unable to assess orientation, alert, moving all extremities Objective Data Active Medications Acetaminophen (Acetaminophen 325 Mg Tablet) 650 mg PO Q6H PRN PRN Reason: Pain, Mild (Pain Scale 1-3) Acetaminophen (Acetaminophen Oral Liquid 650 Mg/20.3 Ml Solution) 975 mg G-TUBE TID [facility] Last Admin: 12/27/22 09:25 Dose: 975 mg Documented By: MANOJ Apixaban (Apixaban 2.5 Mg Tablet) 2.5 mg G-TUBE BID [facility] Last Admin: 12/27/22 09:15 Dose: 2.5 mg Documented By: MANOJ Ascorbic Acid (Ascorbic Acid 500 Mg Tablet) 1,000 mg G-TUBE BID [facility] Last Admin: 12/27/22 09:15 Dose: 1,000 mg Documented By: MANOJ Atorvastatin Calcium (Atorvastatin Calcium 10 Mg Tablet) 10 mg G-TUBE DAILY [facility] Last Admin: 12/27/22 09:15 Dose: 10 mg Documented By: MANOJ Bisacodyl (Bisacodyl 10 Mg Supp.Rect) 10 mg [place] DAILY PRN PRN Reason: Constipation Docusate Sodium (Docusate Sodium 100 Mg Capsule) 100 mg PO DAILY PRN PRN Reason: Constipation Cefepime HCl 2 gm/ Sodium (Chloride) 50 mls @ 100 mls/hr IV Q8H [facility] Last Infusion: 12/27/22 10:05 Dose: 0 mls/hr Documented By: MANOJ Vancomycin HCl 750 mg/ Sodium (Chloride) 265 mls @ 265 mls/hr IV Q24H [facility] Last Infusion: 12/27/22 10:17 Dose: 0 mls/hr Documented By: MANOJ Lactulose (Lactulose 20 Gm/30 Ml Solution) 20 gm G-TUBE BID [facility] Last Admin: 12/27/22 09:14 Dose: 20 gm Documented By: MANOJ Levothyroxine Sodium (Levothyroxine Sodium 100 Mcg Tablet) 100 mcg G-TUBE DAILY@0630 [facility] Last Admin: 12/27/22 06:08 Dose: 100 mcg Documented By: AUBREY Mirtazapine (Mirtazapine 7.5 Mg Tablet) 7.5 mg G-TUBE BEDTIME [facility] Last Admin: 12/26/22 21:27 Dose: 7.5 mg Documented By: BRIA Ondansetron HCl (Ondansetron Hcl 4 Mg/2 Ml Vial) 4 mg IVPUSH Q8H PRN PRN Reason: Nausea and Vomiting Pharmacy Consult (Consult Rx Perform Med Rec) 1 each MISCELLANE ONCE PRN PRN Reason: Consult order Pharmacy Consult (Consult Rx Vancomycin Dosing) 1 each MISCELLANE DAILY PRN PRN Reason: Consult order Quetiapine Fumarate (Quetiapine Fumarate 50 Mg Tablet) 50 mg G-TUBE TID [facility] Last Admin: 12/27/22 09:15 Dose: 50 mg Documented By: MANOJ Sodium Biphosphate/Sodium Phosphate (Sodium Phosphate,[place]-Dibasic 133 Ml Enema) 118 ml [place] DAILY PRN PRN Reason: Constipation Sodium Chloride (0.9 % Sodium Chloride Flush 3 Ml Syringe) 3 ml IVFLUSH QSHIFT [facility] Last Admin: 12/27/22 07:20 Dose: Not Given Documented By: MANOJ Non-Admin Reason: See Note Trazodone HCl (Trazodone Hcl 100 Mg Tablet) 200 mg G-TUBE BID@0600,1800 [facility] Last Admin: 12/27/22 06:08 Dose: 200 mg Documented By: AUBREY Valproic Acid (Valproic Acid (As Sodium Salt) 250 Mg/5 Ml Solution) 1,000 mg G- TUBE BID [facility] Last Admin: 12/27/22 09:14 Dose: 1,000 mg Documented By: MANOJ Labs 12/27/22 06:43 12/27/22 06:43 Labs: Laboratory Results - last 24 hr 12/26/22 12/27/22 12/27/22 08:02 06:43 06:43 MCV 101.2 H MCH 29.2 MCHC 28.8 L RDW 19.6 H Plt Count 269 MPV 10.5 Absolute Nucleated RBC 0.030 H Nucleated RBC % (auto) 0.4 H Anion Gap 14 Estim Creat Clear Calc 82.1 Estimated GFR > 60 Fasting Glucose 75 Calcium 11.1 H 25-OH Vitamin D Total 36.2 Random Vancomycin 12/27/22 06:43 MCV MCH MCHC RDW Plt Count MPV Absolute Nucleated RBC Nucleated RBC % (auto) Anion Gap Estim Creat Clear Calc Estimated GFR Fasting Glucose Calcium 25-OH Vitamin D Total Random Vancomycin 16.6 Microbiology Microbiology Results: Microbiology 12/26/22 14:03 Gram Stain - Final Buttock Right Routine Culture - Preliminary Culture in progress. 12/24/22 07:49 Blood Culture - Preliminary Blood - Venous No growth after 48 hours. 12/24/22 07:45 Blood Culture - Preliminary Blood - Venous No growth after 48 hours. Assessment and Plan (1) Sepsis: Status: Acute (2) UTI (urinary tract infection): Status: Acute (3) Decubitus ulcer of left buttock, unstageable: Status: Acute (4) Osteomyelitis: Status: Acute Plan 62F from [facility] with past medical history of congenital intellectual disability, frontotemporal cognitive disorder, HLD, seizures, hypothyroidism, PE on Eliquis, schizoaffective disorder, hypertension, multiple pressure ulcers, UTIs with chronic Randall, recent prolonged hospital admission (09/29-11/10 for aspiration PNA, sepsis, w/ PEG tube placement) admitted for sepsis related to UTI as well as multiple infected decubitus ulcers. Sepsis 2/2 UTI and infected decubitus ulcers/osteomyelitis unstageable ulcers to the bilateral buttock, stage3 ulcers to bilateral heels, stage 1 ulcer right lateral malleolus History +wound cultures from left heel growing MRSA, and proteus General surgery appreciated - local care, may need wound vac in future, but currently ulcer not ammenable to it Continue IV vanco and cefepime Follow Cultures osteomyelitis L ischium- unspecified chronicity ID appreciated likely custodial iv abx, follow up cultures from wound Chronic dysphagia with PEG tube in place continue tube feeding diet Hypothyroidism continue synthroid Mood disorder continue seroquel Large reducible hernia- suprapubic region no incarceration or strangulation outpt follow up history of pe eliquis Full code reason for continued hospitalization: iv abx, awaiting cultures Time Spent With Patient Time: Total time managing care of this patient today ____ minutes. Quality Stroke Does the patient have a stroke diagnosis?: No VTE Prior VTE?: No VTE Risk Level:: Medical - moderate - high VTE Device Contraindication: Treatment Not Indicated VTE Drug Contraindication: N/A - Med Ordered
--- NOTE | 2022-12-27 11:53 | MHC.CLN ---
F/U PT WITH INCREASED NUTRITION RISK R/T PRESSURE INJURIES TF RUNNING AT MAX GOAL RATE: OSMOLITE 1.5 AT 60ML/HR WITH 30ML PROSOURCE X1 PER DAY AND 300ML FREE WATER FLUSHES Q 4 HRS TO PROVIDE 2220 TOTAL KCALS (31KCALS/KG BASED ON CMW), 105G TOTAL PROTEIN (1.5G/KG), 2897ML TOTAL WATER FROM FORMULA AND FLUSHES (40.2ML/KG) FORMULA SUITABLE TO PROMOTE WOUND HEALING. Ol=207 HIGH ON 12/27. WATER FLUSH INCREASED PER MD RX. MONITOR TOLERANCE, RESIDUALS AND LYTES.
[2022-12-27 16:00] VITALS: BP 120/58; PULSE 86; RESP 20; TEMP 36.4; O2SAT 95
[2022-12-27 16:25] LABS: Anion Gap 13 (12-20); Blood Urea Nitrogen 27 mg/dL (9-16); Carbon Dioxide 22 mmol/L (22-29); Chloride 115 mmol/L (96-108); Creatinine Clr Calc Pharmacy 81.2; Estimated Glomerular Filt Rate > 60; Glucose Random 99 mg/dL (60-115); Potassium 4.1 mmol/L (3.3-5.1); Sodium 146 mmol/L (135-145)
[2022-12-27 19:18] VITALS: BP 111/56; PULSE 92; RESP 20; TEMP 36.1; O2SAT 96
[2022-12-27] MEDS: Mirtazapine 7.5 MG TABLET G-TUBE (22:29)
[2022-12-28] VITALS (7 sets, daily range): BP systolic 101–134; BP diastolic 55–68; PULSE 91–103; RESP 18–20; TEMP 36–36.7; O2SAT 96–100
[2022-12-28 04:39] LABS: Calcium (PTHI) 10.6 mg/dL (8.6-10.4); PTHI 43 pg/mL (16-77)
[2022-12-28] MEDS: Levothyroxine Sodium 100 MCG TABLET G-TUBE (06:24)
[2022-12-28] MEDS: traZODone HCL 100 MG TABLET 200 MG G-TUBE ×2 (06:24→17:12)
[2022-12-28 06:53] LABS: Hemoglobin 7.3 g/dl (12.0-16.0); Mean Corpuscular HGB Conc 28.1 g/dl (31.0-35.0); Mean Corpuscular Hemoglobin 28.9 pg (27.0-33.0); Mean Corpuscular Volume 102.8 fL (80.0-98.0); NRBC Pct Auto 0.4 /100WBC (0.0-0.2); Platelet Count 270 X10*3/uL (160-400); Red Blood Count 2.53 X10*6/uL (4.20-5.50); Red Cell Distribution Width 19.9 % (11.0-16.0); White Blood Count 7.1 X10*3/uL (4.8-10.8)
[2022-12-28 07:19] LABS: Vancomycin Random 19.6 mcg/mL (15-20)
[2022-12-28 07:23] LABS: Anion Gap 10 (12-20); Blood Urea Nitrogen 28 mg/dL (9-16); Calcium 11.2 mg/dL (8.4-10.2); Carbon Dioxide 23 mmol/L (22-29); Chloride 118 mmol/L (96-108); Creatinine Clr Calc Pharmacy 81.2; Estimated Glomerular Filt Rate > 60; Glucose Random 75 mg/dL (60-115); Potassium 4.3 mmol/L (3.3-5.1); Sodium 147 mmol/L (135-145)
[2022-12-28] MEDS: vancomycin HCL 500 MG in 0.9 % Sodium Chloride 100 ML 110 MG IV (08:22)
[2022-12-28 08:53] LABS: Alanine Aminotransferase < 5 U/L (0-31); Albumin Level 2.6 g/dL (3.5-5.0); Alkaline Phosphatase 66 U/L (39-117); Aspartate Amino Transferase 12 U/L (5-31); Bilirubin Direct < 0.2 mg/dL (0.0-0.5); Bilirubin Total 0.2 mg/dL (0.0-1.0); Total Protein 6.6 g/dL (6.5-8.0)
[2022-12-28] MEDS: Apixaban 2.5 MG TABLET G-TUBE (09:30)
[2022-12-28] MEDS: Ascorbic Acid 500 MG TABLET 1000 MG G-TUBE (09:30)
[2022-12-28] MEDS: Atorvastatin Calcium 10 MG TABLET G-TUBE (09:30)
[2022-12-28] MEDS: QUEtiapine Fumarate 50 MG TABLET G-TUBE ×2 (09:31→14:43)
[2022-12-28] MEDS: Acetaminophen Oral Liquid 650 MG/20.3 ML SOLUTION 975 MG G-TUBE ×2 (09:34→15:54)
[2022-12-28] MEDS: Dextrose 5 % 1,000 ML 125 ML IVCONT ×2 (09:44→17:16)
[2022-12-28] MEDS: Lactulose 20 GM/30 ML SOLUTION G-TUBE (09:45)
--- NOTE | 2022-12-28 10:25 | MHC.CM.PN ---
Per ROUNDS discussion, Patient will need a PICC VS [place] for 6 weeks IV ABT @ LTC @ [facility]. CM will follow.
--- NOTE | 2022-12-28 12:25 | P.PNIM_ITS ---
Subjective Subjective Date of Service: 12/28/22 Interval History: Seen and evaluated this morning unable to provide any significant information No reported overnight events Review of Systems Review of Systems: Yes all other systems are reviewed and are negative Physical Exam Vital Signs: Vital Signs: Last Vital Signs Temp 97.3 F 12/28/22 11:21 Pulse 100 12/28/22 11:21 Resp 18 12/28/22 11:21 BP 131/61 12/28/22 11:21 Pulse Ox 100 12/28/22 11:21 O2 Del Method Room Air 12/28/22 11:21 O2 Flow Rate 2 12/24/22 10:27 BMI result Body Mass Index 30.7 Const: Other: Constitutional : Awake, interactive with sounds and bed movements, not in distress Neck : Normal inspection, Supple Cardiovascular : RRR, no JVP, no lower extremity edema Respiratory : good bilateral air entry, no crackles, wheezes or rhonchi Gastrointestinal: soft, lax, Normal bowel sounds, Non tender Skin : Warm, Dry Neurological : unable to assess orientation, alert, moving all extremities Objective Data Active Medications Acetaminophen (Acetaminophen 325 Mg Tablet) 650 mg PO Q6H PRN PRN Reason: Pain, Mild (Pain Scale 1-3) Acetaminophen (Acetaminophen Oral Liquid 650 Mg/20.3 Ml Solution) 975 mg G-TUBE TID [facility] Last Admin: 12/28/22 09:34 Dose: 975 mg Documented By: TAYLOR Comments: Apixaban (Apixaban 2.5 Mg Tablet) 2.5 mg G-TUBE BID [facility] Last Admin: 12/28/22 09:30 Dose: 2.5 mg Documented By: TAYLOR Ascorbic Acid (Ascorbic Acid 500 Mg Tablet) 1,000 mg G-TUBE BID [facility] Last Admin: 12/28/22 09:30 Dose: 1,000 mg Documented By: TAYLOR Atorvastatin Calcium (Atorvastatin Calcium 10 Mg Tablet) 10 mg G-TUBE DAILY [facility] Last Admin: 12/28/22 09:30 Dose: 10 mg Documented By: TAYLOR Bisacodyl (Bisacodyl 10 Mg Supp.Rect) 10 mg [place] DAILY PRN PRN Reason: Constipation Docusate Sodium (Docusate Sodium 100 Mg Capsule) 100 mg PO DAILY PRN PRN Reason: Constipation Cefepime HCl 2 gm/ Sodium (Chloride) 50 mls @ 100 mls/hr IV Q8H [facility] Last Infusion: 12/28/22 07:10 Dose: 0 mls/hr Documented By: TAYLOR Vancomycin HCl 500 mg/ Sodium (Chloride) 110 mls @ 110 mls/hr IV Q24H [facility] Last Infusion: 12/28/22 11:00 Dose: 0 mls/hr Documented By: TAYLOR Dextrose (D5w) 1,000 mls @ 125 mls/hr IVCONT .Q8H [facility] Last Admin: 12/28/22 09:44 Dose: 125 mls/hr Documented By: TAYLOR Lactulose (Lactulose 20 Gm/30 Ml Solution) 20 gm G-TUBE BID [facility] Last Admin: 12/28/22 09:45 Dose: 20 gm Documented By: TAYLOR Levothyroxine Sodium (Levothyroxine Sodium 100 Mcg Tablet) 100 mcg G-TUBE DAILY@0630 [facility] Last Admin: 12/28/22 06:24 Dose: 100 mcg Documented By: BREE Mirtazapine (Mirtazapine 7.5 Mg Tablet) 7.5 mg G-TUBE BEDTIME [facility] Last Admin: 12/27/22 22:29 Dose: 7.5 mg Documented By: BREE Ondansetron HCl (Ondansetron Hcl 4 Mg/2 Ml Vial) 4 mg IVPUSH Q8H PRN PRN Reason: Nausea and Vomiting Pharmacy Consult (Consult Rx Perform Med Rec) 1 each MISCELLANE ONCE PRN PRN Reason: Consult order Pharmacy Consult (Consult Rx Vancomycin Dosing) 1 each MISCELLANE DAILY PRN PRN Reason: Consult order Quetiapine Fumarate (Quetiapine Fumarate 50 Mg Tablet) 50 mg G-TUBE TID [facility] Last Admin: 12/28/22 09:31 Dose: 50 mg Documented By: TAYLOR Sodium Biphosphate/Sodium Phosphate (Sodium Phosphate,Trigg-Dibasic 133 Ml Enema) 118 ml [place] DAILY PRN PRN Reason: Constipation Sodium Chloride (0.9 % Sodium Chloride Flush 3 Ml Syringe) 3 ml IVFLUSH QSHIFT [facility] Last Admin: 12/28/22 08:26 Dose: 3 ml Documented By: TAYLOR Trazodone HCl (Trazodone Hcl 100 Mg Tablet) 200 mg G-TUBE BID@0600,1800 [facility] Last Admin: 12/28/22 06:24 Dose: 200 mg Documented By: ARELY-DO Valproic Acid (Valproic Acid (As Sodium Salt) 250 Mg/5 Ml Solution) 1,000 mg G- TUBE BID [facility] Last Admin: 12/28/22 09:32 Dose: 1,000 mg Documented By: TAYLOR Labs 12/28/22 05:56 12/28/22 05:56 Labs: Laboratory Results - last 24 hr 12/26/22 12/27/22 12/28/22 08:02 16:00 05:56 MCV MCH MCHC RDW Plt Count MPV Absolute Nucleated RBC Nucleated RBC % (auto) Anion Gap 13 Estim Creat Clear Calc 81.2 Estimated GFR > 60 Random Glucose 99 Calcium 11.0 H Total Bilirubin Direct Bilirubin AST ALT Alkaline Phosphatase Total Protein Albumin PTH Intact 43 Calcium (PTH Intact) 10.6 H Random Vancomycin 19.6 12/28/22 12/28/22 05:56 05:56 MCV 102.8 H MCH 28.9 MCHC 28.1 L RDW 19.9 H Plt Count 270 MPV 11.0 Absolute Nucleated RBC 0.030 H Nucleated RBC % (auto) 0.4 H Anion Gap 10 L Estim Creat Clear Calc 81.2 Estimated GFR > 60 Random Glucose 75 Calcium 11.2 H Total Bilirubin 0.2 Direct Bilirubin < 0.2 AST 12 ALT < 5 Alkaline Phosphatase 66 Total Protein 6.6 Albumin 2.6 L PTH Intact Calcium (PTH Intact) Random Vancomycin Microbiology Microbiology Results: Microbiology 12/26/22 14:03 Gram Stain - Final Buttock Right Routine Culture - Preliminary Culture in progress. Assessment and Plan (1) Sepsis: Status: Acute (2) UTI (urinary tract infection): Status: Acute (3) Decubitus ulcer of left buttock, unstageable: Status: Acute (4) Osteomyelitis: Status: Acute (5) Hypercalcemia: Status: Acute Plan 62F from [facility] with past medical history of congenital intellectual dis ability, frontotemporal cognitive disorder, HLD, seizures, hypothyroidism, PE on Eliquis, schizoaffective disorder, hypertension, multiple pressure ulcers, UTIs with chronic Randall, recent prolonged hospital admission (09/29-11/10 for aspiration PNA, sepsis, w/ PEG tube placement) admitted for sepsis related to UTI as well as multiple infected decubitus ulcers. Sepsis 2/2 UTI and infected decubitus ulcers/osteomyelitis unstageable ulcers to the bilateral buttock, stage3 ulcers to bilateral heels, stage 1 ulcer right lateral malleolus History +wound cultures from left heel growing MRSA, and proteus General surgery appreciated - local care, may need wound vac in future, but currently ulcer not ammenable to it Continue IV vanco and DC cefepime Follow Cultures osteomyelitis L ischium- unspecified chronicity ID appreciated likely roasterman iv abx, follow up cultures from wound Chronic dysphagia with PEG tube in place continue tube feeding diet acute on chronic anemia 2/2 chronic illness check occult stool, iron profile transfuse if drops below 7 Hypercalcemia, mild Has high Protein\Albumin level investigate with Electropheresis, immunofixation, PTH, Vit D3, ALP start IVF nephrology following Hypothyroidism continue synthroid Mood disorder continue seroquel Large reducible hernia- suprapubic region no incarceration or strangulation outpt follow up history of pe eliquis Full code reason for continued hospitalization: iv abx, awaiting cultures Time Spent With Patient Time: Total time managing care of this patient today ____ minutes. Quality Stroke Does the patient have a stroke diagnosis?: No VTE Prior VTE?: No VTE Risk Level:: Medical - moderate - high VTE Device Contraindication: Treatment Not Indicated VTE Drug Contraindication: N/A - Med Ordered
[2022-12-28 12:45] LABS: Iron 44 mcg/dL (30-160); Percent Iron Saturation 22 % (15-50); Total Iron Binding Capacity 198 mcg/dL (228-428); Unsaturated Iron Binding 154 ug/dL
[2022-12-28 14:17] LABS: Alkaline Phosphatase 65 U/L (39-117)
[2022-12-28 14:24] LABS: Anion Gap 14 (12-20); Blood Urea Nitrogen 26 mg/dL (9-16); Calcium 11.2 mg/dL (8.4-10.2); Carbon Dioxide 20 mmol/L (22-29); Chloride 117 mmol/L (96-108); Creatinine Clr Calc Pharmacy 79.2; Estimated Glomerular Filt Rate > 60; Glucose Random 106 mg/dL (60-115); Potassium 4.5 mmol/L (3.3-5.1); Sodium 146 mmol/L (135-145)
--- NOTE | 2022-12-28 14:45 | P.CDIM_ITS ---
PROVIDER RESPONSE TEXT: To clarify, the appropriate diagnosis supported by the clinical indicators: Hypernatremia QUERY TEXT: PHYSICIAN'S DOCUMENTATION REQUEST Date of Query: 12/27/2022 12:13 PM EDT Patient Name: MIKO DAVID Admit Date: 12/24/2022 Dear Dave Shah, A review of the medical record indicates additional documentation may be needed. Please review below and update the documentation accordingly. Clinical Indicators: LAB FINDINGS: sodium 140 146 H Based on the above, is there a diagnosis that correlates with these lab findings: Hypernatremia Labs indicate a diagnosis of (please specify) Other Other (explain)Clinically unable to determine (explain)Thank you, Catina Rodriguez, CCS, CDIS Use of terms such as suspected, likely, concern for, or probable (associated with a specific diagnosi s that is being evaluated, monitored, or treated as if it exists) are acceptable and can be coded in the inpatient se tting, when documented at the time of discharge. Please use your independent medical judgment in providing your response. THIS QUERY IS PART OF THE PERMANENT MEDICAL RECORD
[2022-12-28 19:46] LABS: Creatinine Urine 25.72 mg/dL
[2022-12-29] MEDS: QUEtiapine Fumarate 50 MG TABLET G-TUBE ×4 (00:16→20:08)
[2022-12-29] MEDS: Mirtazapine 7.5 MG TABLET G-TUBE ×2 (00:16→20:08)
[2022-12-29] MEDS: Apixaban 2.5 MG TABLET G-TUBE ×3 (00:16→20:08)
[2022-12-29] MEDS: Lactulose 20 GM/30 ML SOLUTION G-TUBE ×2 (00:16→08:07)
[2022-12-29] MEDS: Ascorbic Acid 500 MG TABLET 1000 MG G-TUBE ×3 (00:16→20:08)
[2022-12-29] MEDS: Acetaminophen Oral Liquid 650 MG/20.3 ML SOLUTION 975 MG G-TUBE ×4 (01:56→20:07)
[2022-12-29 04:00] VITALS: BP 121/51; PULSE 98; RESP 20; TEMP 36.7; O2SAT 97
[2022-12-29] MEDS: Dextrose 5 % 1,000 ML 125 ML IVCONT ×4 (06:30→23:55)
[2022-12-29] MEDS: traZODone HCL 100 MG TABLET 200 MG G-TUBE ×2 (06:36→18:09)
[2022-12-29] MEDS: Levothyroxine Sodium 100 MCG TABLET G-TUBE (06:36)
[2022-12-29 06:51] LABS: Hematocrit 26.2 % (37.0-47.0); Hemoglobin 7.4 g/dl (12.0-16.0); Mean Corpuscular HGB Conc 28.2 g/dl (31.0-35.0); Mean Corpuscular Hemoglobin 29.1 pg (27.0-33.0); Mean Corpuscular Volume 103.1 fL (80.0-98.0); Mean Platelet Volume 10.8 fL (9.4-12.3); NRBC Pct Auto 0.3 /100WBC (0.0-0.2); Platelet Count 269 X10*3/uL (160-400); Red Blood Count 2.54 X10*6/uL (4.20-5.50); Red Cell Distribution Width 20.1 % (11.0-16.0); White Blood Count 7.6 X10*3/uL (4.8-10.8)
[2022-12-29 07:11] LABS: Vancomycin Random 15.4 mcg/mL (15-20)
[2022-12-29 07:13] LABS: Anion Gap 13 (12-20); Blood Urea Nitrogen 25 mg/dL (9-16); Calcium 11.2 mg/dL (8.4-10.2); Carbon Dioxide 22 mmol/L (22-29); Chloride 112 mmol/L (96-108); Creatinine Clr Calc Pharmacy 82.1; Estimated Glomerular Filt Rate > 60; Glucose Random 88 mg/dL (60-115); Potassium 4.5 mmol/L (3.3-5.1); Sodium 142 mmol/L (135-145)
[2022-12-29 07:33] VITALS: BP 119/75; PULSE 97; RESP 18; TEMP 36.4; O2SAT 100
--- NOTE | 2022-12-29 07:48 | HE.PHANOTE ---
RE: VANCO Patients level came in this morning at 15.4 down from 19.6. Patient was at 500 mg Q24H. RXinsight suggested this would be subtherapeutic. Increased back up to 750 mg Q24H as patient is showing signs of sepsis. Renal function has remained stable. Will continue to monitor. Predicted AUC 547.
[2022-12-29] MEDS: Atorvastatin Calcium 10 MG TABLET G-TUBE (08:03)
[2022-12-29] MEDS: vancomycin HCL 750 MG in 0.9 % Sodium Chloride 250 ML 265 MG IV (08:06)
--- NOTE | 2022-12-29 09:58 | MHC.CLN ---
F/U TF RUNNING AT MAX GOAL RATE: OSMOLITE 1.5 AT 60ML/HR WITH 30ML PROSOURCE X1 PER DAY AND 300ML FREE WATER FLUSHES Q 4 HRS PROVIDES 2220 TOTAL KCALS (31KCALS/KG BASED ON CMW), 105G TOTAL PROTEIN (1.5G/KG), 2897ML TOTAL WATER FROM FORMULA AND FLUSHES (40.2ML/KG) FORMULA SUITABLE TO PROMOTE WOUND HEALING SERUM NA NOW WNL; RECOMMEND DECREASE FLUSHES TO 240ML Q 6 HOURS TO PROVIDE 2057ML TOTAL WATER FROM FORMULA AND FLUSHES CONTINUE TO MONITOR TOLERANCE, RESIDUALS AND LYTES.
[2022-12-29 11:10] VITALS: BP 122/63; PULSE 98; RESP 20; TEMP 36.1; O2SAT 100
--- NOTE | 2022-12-29 12:15 | PM.DS ---
DS: Providers Provider Date of Service: 01/01/23 Date of admission: 12/24/22 13:23 Primary care physician: Ondina Sewell MD Consults: 12/24/22 13:21 Consult to General Surgery [place]ine Consulting [place] [facility] Reason for consultation: unstageable ulcers b/l buttock, stage 2/3 b/l heels 12/24/22 13:26 Consult to Infectious Diseases Routine Consulting Provider[place] [facility] [place] Reason for consultation: ?osteomyelitis left ischium 12/27/22 17:19 Consult to Nephrology Routine Consulting Provider: Humberto Ho Reason for consultation: Eval for need of PICC vs Hickmann cath. DS: Diagnosis Discharge Diagnosis (1) Sepsis: Status: Resolved (2) UTI (urinary tract infection): Status: Resolved (3) Decubitus ulcer of left buttock, unstageable: Status: Acute (4) Osteomyelitis: Status: Acute (5) Hypercalcemia: Status: Acute (6) Decubitus ulcer of buttock, right, unstageable: Status: Acute (7) Pressure injury of left heel, stage 3: Status: Acute (8) Pressure ulcer of right leg, stage 3: Status: Acute DS: Summary Hospital Course Hospital Course: Admission note HPI 62 yo female from a [facility] with past medical history of congenital intellectual disability, frontotemporal cognitive disorder, HLD, seizures, hypothyroidism, chronic kidney disease, PE on Eliquis, hx RUE DVT, schizoaffective disorder, hypertension, multiple pressure ulcers, UTIs with chronic Randall, recent prolonged hospital admission (09/29-11/10 for aspiration PNA, sepsis, w/ PEG tube placement) presented to the ED earlier today from LTC with gross hematuria noted from Randall bag this morning by assisted staff.?She is nonverbal at baseline. Per SNF notes she is noted to have unstageable ulcers of the buttock bilaterally, stage 3 ulcers bilateral heels and unstable ulcer right lateral malleolus. On arrival, patient febrile to 100.6 with elevated HR 99 but no hypotension. However, did developed hypotension to 89/53 while in the ED and given 2L IV NS bolus with improvement to 109/61 on admission. There is a milk leukocytosis 12.1, stable normocytic anemia with H/H 8.7/29.7%. Renal function baseline, electrolytes normal. UA with 3+ leuks, 3+ blood, +urinary sediment, trace bacteria, 3+ protein, elevated specific gravity. Negative for COVID-19. CXR with platelike atelectasis in LLL and lingular. CT abd/pelvis showing diffuse thick-walled urinary bladder with fat stranding, midline abd wall hernia with loop of small bowel with large abd wall hernia mesh superior to this, and bilateral decubitus buttock ulcers with significant debris seen in left ulcer extending to the ischium suspicious for osteomyelitis. Per ED provider, large amount of gauze pulled from bilateral ulcers with residual adherent debris remaining in wound. In the ED, give IV cefepime, IV vanco. Hospital course The patient was admitted for evaluation of Sepsis believed to be result of possible UTI and infected decubitus ulcers/osteomyelitis with multiple unstageable ulcers to the bilateral buttock, stage3 ulcers to bilateral heels, stage 1 ulcer right lateral malleolus. She also has a history of +ve wound cultures from left heel growing MRSA, and proteus. Evaluated by General surgery who recommended local care, may need wound vac in future, but currently ulcer not ammenable to it. Treated with IV vanco and cefepime as she was evaluated by ID given the evidence of osteomyelitis in left ischium with unspecified chronicity who recommended total of 6 weeks of IV antibiotics of Ertapenem at time of discharge. She still have 34 days to finish. Noted to have acute on chronic anemia 2/2 chronic illness with normal iron profile and no evidence of bleeding. remained above 7 and did not need transfusion. She has mild Hypercalcemia which was noted on previous occasions as well with high Protein\Albumin level. Pending Electropheresis, immunofixation at time of discharge as Vit D and PTH were within normal. Hypercalcemia likely from immobilization but can not rule out multiple myeloma (pending final results). Continue Wound care, rotation and Antibiotic of Ertapenem for total of 6 weeks Nystatin for oral thrush Time Spent with Patient Time attestation: Total time managing care of this patient today ____ minutes. Discharge coordination time: Greater than 30 minutes Quality: Safe Use of Opioids Does Pt have an Active Cancer Diagnosis on the Problem List?: No Quality: Stroke Does the patient have a stroke diagnosis?: No Physical Exam Vital Signs: Vital Signs: Last Vital Signs Temp 97.0 F 12/29/22 11:10 Pulse 98 12/29/22 11:10 Resp 20 12/29/22 11:10 BP 122/63 12/29/22 11:10 Pulse Ox 100 12/29/22 11:10 O2 Del Method Room Air 12/29/22 11:10 O2 Flow Rate 2 12/24/22 10:27 BMI result Body Mass Index 30.7 Const: Other: Constitutional : Awake, interactive with sounds and bed movements, not in distress Neck : Normal inspection, Supple Cardiovascular : RRR, no JVP, no lower extremity edema Respiratory : good bilateral air entry, no crackles, wheezes or rhonchi Gastrointestinal: soft, lax, Normal bowel sounds, Non tender, tube feed in place with no surrounding erythema or drainage Skin : Warm, Dry Neurological : unable to assess orientation, alert, moving all extremities DS: Data Data Completed and Pending Completed studies during hospitalization [Text1]: Procedures Assistance with Respiratory Ventilation, Less than 24 Consecutive Hours, Continuous Positive Airway Pressure (09/29/22) Extraction of Left Foot Skin, External Approach (09/29/22) Insertion of Feeding Device into Stomach, Percutaneous Approach (09/29/22) Insertion of Infusion Device into Left Cephalic Vein, Percutaneous Approach (09/29/22) Insertion of Infusion Device into Superior Vena Cava, Percutaneous Approach (09/29/22) Introduction of Remdesivir Anti-infective into Peripheral Vein, Percutaneous Approach, [employer] (01/02/22) Introduction of Vasopressor into Peripheral Vein, Percutaneous Approach (09/29/22) Isolation (01/02/22) Transfusion of Nonautologous Red Blood Cells into Peripheral Vein, Percutaneous Approach (09/29/22) Ultrasonography of Superior Vena Cava, Guidance (09/29/22) Labs on day of discharge: Laboratory Results - last 24 hr 12/28/22 12/28/22 12/28/22 05:56 13:21 13:21 WBC RBC Hgb Hct MCV MCH MCHC RDW Plt Count MPV Absolute Nucleated RBC Nucleated RBC % (auto) Sodium 146 H Potassium 4.5 Chloride 117 H Carbon Dioxide 20 L Anion Gap 14 BUN 26 H Creatinine 0.86 Estim Creat Clear Calc 79.2 Estimated GFR > 60 Random Glucose 106 Calcium 11.2 H Iron 44 TIBC 198 L % Saturation 22 Unsat Iron Binding 154 Alkaline Phosphatase 65 Urine Creatinine Random Vancomycin 07/12/29/22 12/29/22 18:03 06:14 06:14 WBC RBC Hgb Hct MCV MCH MCHC RDW Plt Count MPV Absolute Nucleated RBC Nucleated RBC % (auto) Sodium Potassium Chloride Carbon Dioxide Anion Gap BUN Creatinine Cancelled Estim Creat Clear Calc Cancelled Estimated GFR Cancelled Random Glucose Calcium Iron TIBC % Saturation Unsat Iron Binding Alkaline Phosphatase Urine Creatinine 25.72 Random Vancomycin 15.4 12/29/22 12/29/22 06:14 06:14 WBC 7.6 RBC 2.54 L Hgb 7.4 L Hct 26.2 L MCV 103.1 H MCH 29.1 MCHC 28.2 L RDW 20.1 H Plt Count 269 MPV 10.8 Absolute Nucleated RBC 0.020 H Nucleated RBC % (auto) 0.3 H Sodium 142 Potassium 4.5 Chloride 112 H Carbon Dioxide 22 Anion Gap 13 BUN 25 H Creatinine 0.83 Estim Creat Clear Calc 82.1 Estimated GFR > 60 Random Glucose 88 Calcium 11.2 H Iron TIBC % Saturation Unsat Iron Binding Alkaline Phosphatase Urine Creatinine Random Vancomycin Preliminary micro results at discharge 12/26/22 14:03 Routine Culture - Preliminary Buttock Right Culture in progress. Imaging CT scan - abdomen: Radiologist's impression: ITS Impressions Chest X-Ray 12/24/22 08:28 IMPRESSION: Platelike atelectasis in left lower lobe and lingula. Abdomen/Pelvis CT 12/24/22 08:50 IMPRESSION: 1. Diffuse thick-walled urinary bladder with fat stranding question cystitis. There is a Randall's catheter in the bladder. 2. There is a midline abdominal wall hernia containing a loop of small bowel. Superior to this is a large abdominal wall hernia mesh. 3. There is no radiopaque urolith or hydroureteronephrosis. There are small dense material seen in the right kidney which could be small stones or excreted contrast. 4. There is left basilar atelectasis with underlying small pleural effusion. 5. 5. Bilateral decubitus buttock ulcers with significant debris seen in the left ulcer which extends to the ischium and is suspicious for osteomyelitis. Fleischner guidelines were followed. Venous Duplex 12/24/22 14:18 IMPRESSION: No DVT demonstrated in the right lower extremity except for the mid popliteal segment which is limited in visualization. However the proximal and distal segments adjacent to the mid popliteal artery are widely patent with normal Doppler flow. Foot X-Ray 12/24/22 14:52 IMPRESSION: 1. Diffuse osteopenia throughout both feet and left ankle. No visible acute fracture or dislocation seen. 2. There is a diffuse thinning of the retrocalcaneal skin with likely ulceration but no gas or soft tissue swelling seen in either foot. There is no periosteal elevation or erosive changes to suspect osteomyelitis. 3. Small bilateral calcaneal heel enthesophytes. Foot X-Ray 12/24/22 14:52 IMPRESSION: 1. Diffuse osteopenia throughout both feet and left ankle. No visible acute fracture or dislocation seen. 2. There is a diffuse thinning of the retrocalcaneal skin with likely ulceration but no gas or soft tissue swelling seen in either foot. There is no periosteal elevation or erosive changes to suspect osteomyelitis. 3. Small bilateral calcaneal heel enthesophytes. Discharge Plan Discharge Anticipated Discharge Date/Time: 12/29/22 12:11 Patient Disposition: Xfer [facility] Discharge Diagnosis: Psteomyelitis Hypercalcemia Referrals: [facility] [Outside] - 1 Week Ondina Sewell MD [Primary Care Provider] - 1 Week Discharge Medications: New nystatin 100,000 unit/mL Suspension 400,000 unit buccal QID 7 Days Qty: 112 0RF ertapenem 1 gram recon soln 1 g IM Q24H Qty: 34 0RF Continued atorvastatin 10 mg Tablet 10 mg feeding tube DAILY trazodone 100 mg Tablet 200 mg feeding tube BID mirtazapine 7.5 mg Tablet 7.5 mg feeding tube DAILY lactulose [Enulose] 10 gram/15 mL Solution 20 g feeding tube BID quetiapine 50 mg Tablet 50 mg feeding tube TID Eliquis 2.5 mg Tablet 2.5 mg feeding tube BID ascorbic acid (vitamin C) [Vitamin C] 1,000 mg Tablet 1,000 mg feeding tube BID tramadol 50 mg Tablet 50 mg feeding tube Q12H PRN (Reason: Pain) bisacodyl 10 mg Suppository 10 mg SC DAILY PRN (Reason: Constipation) Fleet Enema 19-7 gram/118 mL Enema 118 ml SC DAILY PRN (Reason: Constipation) acetaminophen 160 mg/5 mL Elixir 960 mg feeding tube TID amino acids-protein hydrolys 15-100 gram-kcal/30 mL Liquid 30 ea feeding tube BID Rx Instructions: 30 mL BID valproic acid (as sodium salt) 250 mg/5 mL (5 mL) Solution 1,000 mg feeding tube BID levothyroxine 100 mcg Tablet 100 mcg feeding tube DAILY@0630 Discontinued doxycycline hyclate 100 mg Tablet 100 mg feeding tube BID Rx Instructions: stop date: 12/24/22 Discharge Orders: Discharge Order (Routine); Ordered 01/01/23 Ordered By: Dave Shah Diet: Tubefeed Activity on Discharge: As tolerated Stand Alone Forms: Patient Portal Discharge page Care Plan Goals: Read below Health Concerns: Read below Plan of Treatment: Read below Assessment: Continue Wound care, rotation and Antibiotic of Ertapenem for total of 6 weeks Nystatin for oral thrush Discharge Date/Time: 01/01/23 19:15
--- NOTE | 2022-12-29 14:29 | HO.PM.IMPN ---
Subjective Subjective Date of Service: 12/29/22 Interval History: Seen and evaluated this morning unable to provide any significant information could not get PICC as she was not sitting for the procedure No reported overnight events Review of Systems Review of Systems: Yes all other systems are reviewed and are negative Physical Exam Vital Signs: Vital Signs: Last Vital Signs Temp 97.0 F 12/29/22 11:10 Pulse 98 12/29/22 11:10 Resp 20 12/29/22 11:10 BP 122/63 12/29/22 11:10 Pulse Ox 100 12/29/22 11:10 O2 Del Method Room Air 12/29/22 11:10 O2 Flow Rate 2 12/24/22 10:27 BMI result Body Mass Index 30.7 Const: Other: Constitutional : Awake, interactive with sounds and bed movements, not in distress Neck : Normal inspection, Supple Cardiovascular : RRR, no JVP, no lower extremity edema Respiratory : good bilateral air entry, no crackles, wheezes or rhonchi Gastrointestinal: soft, lax, Normal bowel sounds, Non tender, tube feed in place with no surrounding erythema or drainage Skin : Warm, Dry Neurological : unable to assess orientation, alert, moving all extremities Objective Data Active Medications Acetaminophen (Acetaminophen 325 Mg Tablet) 650 mg PO Q6H PRN PRN Reason: Pain, Mild (Pain Scale 1-3) Acetaminophen (Acetaminophen Oral Liquid 650 Mg/20.3 Ml Solution) 975 mg G-TUBE TID [facility] Last Admin: 12/29/22 09:52 Dose: 975 mg Documented By: TAYLOR Apixaban (Apixaban 2.5 Mg Tablet) 2.5 mg G-TUBE BID [facility] Last Admin: 12/29/22 08:03 Dose: 2.5 mg Documented By: TAYLOR Ascorbic Acid (Ascorbic Acid 500 Mg Tablet) 1,000 mg G-TUBE BID [facility] Last Admin: 12/29/22 08:03 Dose: 1,000 mg Documented By: TAYLOR Atorvastatin Calcium (Atorvastatin Calcium 10 Mg Tablet) 10 mg G-TUBE DAILY [facility] Last Admin: 12/29/22 08:03 Dose: 10 mg Documented By: TAYLOR Bisacodyl (Bisacodyl 10 Mg Supp.Rect) 10 mg [place] DAILY PRN PRN Reason: Constipation Docusate Sodium (Docusate Sodium 100 Mg Capsule) 100 mg PO DAILY PRN PRN Reason: Constipation Haloperidol Lactate (Haloperidol Lactate 5 Mg/Ml Vial) 2.5 mg IM ONCE PRN PRN Reason: PRe procedure Dextrose (D5w) 1,000 mls @ 125 mls/hr IVCONT .Q8H [facility] Last Admin: 12/29/22 09:54 Dose: 125 mls/hr Documented By: TAYLOR Vancomycin HCl 750 mg/ Sodium (Chloride) 265 mls @ 265 mls/hr IV Q24H [facility] Last Infusion: 12/29/22 09:55 Dose: 0 mls/hr Documented By: TAYLOR Lactulose (Lactulose 20 Gm/30 Ml Solution) 20 gm G-TUBE BID [facility] Last Admin: 12/29/22 08:07 Dose: 20 gm Documented By: TAYLOR Levothyroxine Sodium (Levothyroxine Sodium 100 Mcg Tablet) 100 mcg G-TUBE DAILY@0630 [facility] Last Admin: 12/29/22 06:36 Dose: 100 mcg Documented By: ANTONIA Lorazepam (Lorazepam 2 Mg/Ml Vial) 1 mg IVPUSH ONCE PRN PRN Reason: anxiety/restlessness Mirtazapine (Mirtazapine 7.5 Mg Tablet) 7.5 mg G-TUBE BEDTIME [facility] Last Admin: 12/29/22 00:16 Dose: 7.5 mg Documented By: ANTONIA Nystatin (Nystatin Oral Susp 500,000 Unit/5 Ml Oral.Susp) 400,000 unit BUCCAL QID [facility]; Protocol Ondansetron HCl (Ondansetron Hcl 4 Mg/2 Ml Vial) 4 mg IVPUSH Q8H PRN PRN Reason: Nausea and Vomiting Pharmacy Consult (Consult Rx Perform Med Rec) 1 each MISCELLANE ONCE PRN PRN Reason: Consult order Pharmacy Consult (Consult Rx Vancomycin Dosing) 1 each MISCELLANE DAILY PRN PRN Reason: Consult order Quetiapine Fumarate (Quetiapine Fumarate 50 Mg Tablet) 50 mg G-TUBE TID [facility] Last Admin: 12/29/22 08:03 Dose: 50 mg Documented By: TYALOR Sodium Biphosphate/Sodium Phosphate (Sodium Phosphate,[place]-Dibasic 133 Ml Enema) 118 ml [place] DAILY PRN PRN Reason: Constipation Sodium Chloride (0.9 % Sodium Chloride Flush 3 Ml Syringe) 3 ml IVFLUSH QSHIFT [facility] Last Admin: 12/29/22 09:55 Dose: 3 ml Documented By: TAYLOR Trazodone HCl (Trazodone Hcl 100 Mg Tablet) 200 mg G-TUBE BID@0600,1800 [facility] Last Admin: 12/29/22 06:36 Dose: 200 mg Documented By: ANTONIA Valproic Acid (Valproic Acid (As Sodium Salt) 250 Mg/5 Ml Solution) 1,000 mg G-TUBE BID [facility] Last Admin: 12/29/22 08:06 Dose: 1,000 mg Documented By: TAYLOR Labs 12/29/22 06:14 12/29/22 06:14 Labs: Laboratory Results - last 24 hr 12/28/22 12/29/22 12/29/22 18:03 06:14 06:14 MCV MCH MCHC RDW Plt Count MPV Absolute Nucleated RBC Nucleated RBC % (auto) Anion Gap Estim Creat Clear Calc Cancelled Estimated GFR Cancelled Random Glucose Calcium Urine Creatinine 25.72 Random Vancomycin 15.4 12/29/22 12/29/22 06:14 06:14 MCV 103.1 H MCH 29.1 MCHC 28.2 L RDW 20.1 H Plt Count 269 MPV 10.8 Absolute Nucleated RBC 0.020 H Nucleated RBC % (auto) 0.3 H Anion Gap 13 Estim Creat Clear Calc 82.1 Estimated GFR > 60 Random Glucose 88 Calcium 11.2 H Urine Creatinine Random Vancomycin Microbiology Microbiology Results: Microbiology 12/26/22 14:03 Gram Stain - Final Buttock Right Routine Culture - Preliminary Staphylococcus species Enterococcus/Streptococcus sp 12/24/22 07:49 Blood Culture - Final Blood - Venous No growth after 5 days. 12/24/22 07:45 Blood Culture - Final Blood - Venous No growth after 5 days. Assessment and Plan (1) Sepsis: Status: Acute (2) Hypercalcemia: Status: Acute Plan 62F from [facility] with past medical history of congenital intellectual disability, frontotemporal cognitive disorder, HLD, seizures, hypothyroidism, PE on Eliquis, schizoaffective disorder, hypertension, multiple pressure ulcers, UTIs with chronic Randall, recent prolonged hospital admission (09/29-11/10 for aspiration PNA, sepsis, w/ PEG tube placement) admitted for sepsis related to UTI as well as multiple infected decubitus ulcers. Sepsis 2/2 UTI and infected decubitus ulcers/osteomyelitis unstageable ulcers to the bilateral buttock, stage3 ulcers to bilateral heels, stage 1 ulcer right lateral malleolus History +wound cultures from left heel growing MRSA, and proteus General surgery appreciated - local care, may need wound vac in future, but currently ulcer not ammenable to it Continue IV vanco and DC cefepime ID rec Ertapenem on DC To place PICC Follow Cultures osteomyelitis L ischium- unspecified chronicity ID appreciated likely mcc iv abx, follow up cultures from wound Chronic dysphagia with PEG tube in place continue tube feeding diet acute on chronic anemia 2/2 chronic illness check occult stool, iron profile transfuse if drops below 7 Hypercalcemia, mild Has high Protein\Albumin level investigate with Electropheresis, immunofixation, PTH, Vit D3, ALP start IVF nephrology following Hypothyroidism continue synthroid Mood disorder continue seroquel Large reducible hernia- suprapubic region no incarceration or strangulation outpt follow up history of pe eliquis Full code reason for continued hospitalization: iv abx, negative cultures Time Spent With Patient Time: Total time managing care of this patient today ____ minutes. Quality Stroke Does the patient have a stroke diagnosis?: No VTE Prior VTE?: No VTE Risk Level:: Medical - moderate - high VTE Device Contraindication: Treatment Not Indicated VTE Drug Contraindication: N/A - Med Ordered
[2022-12-29] MEDS: Nystatin Oral Susp 500,000 UNIT/5 ML ORAL.SUSP 400000 UNIT BUCCAL ×3 (14:38→20:07)
[2022-12-29 15:18] VITALS: BP 112/55; PULSE 100; RESP 20; TEMP 36.1; O2SAT 96
--- NOTE | 2022-12-29 16:22 | MHC.CM.PN ---
EMR reviewed and per MD rounds, pt is awaiting PICC line placement and first abx dose via PICC, then can be D/C to [facility]. CM will continue to follow for D/C.
[2022-12-29 19:46] VITALS: BP 133/74; PULSE 98; RESP 18; TEMP 36.6; O2SAT 98
[2022-12-29 23:29] VITALS: BP 113/68; PULSE 88; RESP 18; TEMP 36.5; O2SAT 97
[2022-12-30 03:23] VITALS: BP 135/59; PULSE 94; RESP 18; TEMP 36.1; O2SAT 97
[2022-12-30] MEDS: traZODone HCL 100 MG TABLET 200 MG G-TUBE ×2 (05:13→17:04)
[2022-12-30] MEDS: Levothyroxine Sodium 100 MCG TABLET G-TUBE (05:13)
[2022-12-30 06:45] LABS: Creatinine Clr Calc Pharmacy 90.9; Estimated Glomerular Filt Rate > 60
[2022-12-30 06:46] LABS: Vancomycin Random 16.9 mcg/mL (15-20)
[2022-12-30 07:09] LABS: Anion Gap 12 (12-20); Blood Urea Nitrogen 24 mg/dL (9-16); Calcium 11.2 mg/dL (8.4-10.2); Carbon Dioxide 21 mmol/L (22-29); Chloride 107 mmol/L (96-108); Glucose Random 83 mg/dL (60-115); Sodium 135 mmol/L (135-145)
[2022-12-30 07:49] VITALS: BP 121/52; PULSE 103; RESP 18; TEMP 36.6; O2SAT 96
[2022-12-30] MEDS: Nystatin Oral Susp 500,000 UNIT/5 ML ORAL.SUSP 400000 UNIT BUCCAL ×4 (09:31→21:17)
[2022-12-30] MEDS: Ascorbic Acid 500 MG TABLET 1000 MG G-TUBE ×2 (09:31→21:17)
[2022-12-30] MEDS: Acetaminophen Oral Liquid 650 MG/20.3 ML SOLUTION 975 MG G-TUBE ×3 (09:31→21:16)
[2022-12-30] MEDS: QUEtiapine Fumarate 50 MG TABLET G-TUBE ×3 (09:31→21:17)
[2022-12-30] MEDS: Apixaban 2.5 MG TABLET G-TUBE ×2 (09:31→21:17)
[2022-12-30] MEDS: vancomycin HCL 750 MG in 0.9 % Sodium Chloride 250 ML 265 MG IV (09:32)
[2022-12-30] MEDS: Atorvastatin Calcium 10 MG TABLET G-TUBE (10:10)
[2022-12-30 12:00] VITALS: BP 134/58; PULSE 102; RESP 18; TEMP 36.1; O2SAT 96
--- NOTE | 2022-12-30 12:52 | HO.PM.IMPN ---
Subjective Subjective Date of Service: 12/30/22 Interval History: Seen and evaluated this morning unable to provide any significant information could not get PICC as she was not sitting for the procedure No reported overnight events Review of Systems Review of Systems: Yes Unobtainable due to mental status Physical Exam Vital Signs: Vital Signs: Last Vital Signs Temp 97 F 12/30/22 12:00 Pulse 102 H 12/30/22 12:00 Resp 18 12/30/22 12:00 BP 134/58 L 12/30/22 12:00 Pulse Ox 96 12/30/22 12:00 O2 Del Method Room Air 12/30/22 12:00 O2 Flow Rate 2 12/24/22 10:27 BMI result Body Mass Index 30.7 Const: Other: Constitutional : Awake, interactive with sounds and bed movements, mildly distressed Neck : Normal inspection, Supple Cardiovascular : RRR, no JVP, no lower extremity edema Respiratory : good bilateral air entry, no crackles, wheezes or rhonchi Gastrointestinal: soft, lax, Normal bowel sounds, Non tender, tube feed in place with no surrounding erythema or drainage Skin : Warm, Dry Neurological : unable to assess orientation, alert, moving all extremities Objective Data Active Medications Acetaminophen (Acetaminophen 325 Mg Tablet) 650 mg PO Q6H PRN PRN Reason: Pain, Mild (Pain Scale 1-3) Acetaminophen (Acetaminophen Oral Liquid 650 Mg/20.3 Ml Solution) 975 mg G-TUBE TID [facility] Last Admin: 12/30/22 09:31 Dose: 975 mg Documented By: NISHI Apixaban (Apixaban 2.5 Mg Tablet) 2.5 mg G-TUBE BID [facility] Last Admin: 12/30/22 09:31 Dose: 2.5 mg Documented By: NISHI Ascorbic Acid (Ascorbic Acid 500 Mg Tablet) 1,000 mg G-TUBE BID [facility] Last Admin: 12/30/22 09:31 Dose: 1,000 mg Documented By: NISHI Atorvastatin Calcium (Atorvastatin Calcium 10 Mg Tablet) 10 mg G-TUBE DAILY [facility] Last Admin: 12/30/22 10:10 Dose: 10 mg Documented By: NISHI Bisacodyl (Bisacodyl 10 Mg Supp.Rect) 10 mg [place] DAILY PRN PRN Reason: Constipation Docusate Sodium (Docusate Sodium 100 Mg Capsule) 100 mg PO DAILY PRN PRN Reason: Constipation Haloperidol Lactate (Haloperidol Lactate 5 Mg/Ml Vial) 2.5 mg IM ONCE PRN PRN Reason: PRe procedure Vancomycin HCl 750 mg/ Sodium (Chloride) 265 mls @ 265 mls/hr IV Q24H [facility] Last Infusion: 12/30/22 10:56 Dose: 0 mls/hr Documented By: NISHI Lactulose (Lactulose 20 Gm/30 Ml Solution) 20 gm G-TUBE BID [facility] Last Admin: 12/30/22 10:08 Dose: Not Given Documented By: NISHI Non-Admin Reason: pt has several lose stool over night Levothyroxine Sodium (Levothyroxine Sodium 100 Mcg Tablet) 100 mcg G-TUBE DAILY@0630 [facility] Last Admin: 12/30/22 05:13 Dose: 100 mcg Documented By: MAGEN Lorazepam (Lorazepam 2 Mg/Ml Vial) 1 mg IVPUSH ONCE PRN PRN Reason: anxiety/restlessness Mirtazapine (Mirtazapine 7.5 Mg Tablet) 7.5 mg G-TUBE BEDTIME [facility] Last Admin: 12/29/22 20:08 Dose: 7.5 mg Documented By: MAGEN Nystatin (Nystatin Oral Susp 500,000 Unit/5 Ml Oral.Susp) 400,000 unit BUCCAL QID [facility]; Protocol Last Admin: 12/30/22 09:31 Dose: 400,000 unit Documented By: NISHI Ondansetron HCl (Ondansetron Hcl 4 Mg/2 Ml Vial) 4 mg IVPUSH Q8H PRN PRN Reason: Nausea and Vomiting Pharmacy Consult (Consult Rx Perform Med Rec) 1 each MISCELLANE ONCE PRN PRN Reason: Consult order Pharmacy Consult (Consult Rx Vancomycin Dosing) 1 each MISCELLANE DAILY PRN PRN Reason: Consult order Quetiapine Fumarate (Quetiapine Fumarate 50 Mg Tablet) 50 mg G-TUBE TID [facility] Last Admin: 12/30/22 09:31 Dose: 50 mg Documented By: NISHI Sodium Biphosphate/Sodium Phosphate (Sodium Phosphate,[place]-Dibasic 133 Ml Enema) 118 ml [place] DAILY PRN PRN Reason: Constipation Sodium Chloride (0.9 % Sodium Chloride Flush 3 Ml Syringe) 3 ml IVFLUSH QSHIFT [facility] Last Admin: 12/30/22 09:39 Dose: 3 ml Documented By: NISHI Trazodone HCl (Trazodone Hcl 100 Mg Tablet) 200 mg G-TUBE BID@0600,1800 [facility] Last Admin: 12/30/22 05:13 Dose: 200 mg Documented By: MAGEN Valproic Acid (Valproic Acid (As Sodium Salt) 250 Mg/5 Ml Solution) 1,000 mg G-TUBE BID [facility] Last Admin: 12/30/22 09:30 Dose: 1,000 mg Documented By: NISHI Labs 12/29/22 06:14 12/30/22 06:12 Labs: Laboratory Results - last 24 hr 12/30/22 12/30/22 12/30/22 06:12 06:12 06:12 Anion Gap 12 Cancelled Estim Creat Clear Calc 90.9 Cancelled Estimated GFR > 60 Cancelled Random Glucose 83 Cancelled Calcium 11.2 H Cancelled Random Vancomycin 16.9 Microbiology Microbiology Results: Microbiology 12/26/22 14:03 Gram Stain - Final Buttock Right Routine Culture - Final Methicillin Res Staph Aureus Enterococcus faecalis 12/24/22 07:49 Blood Culture - Final Blood - Venous No growth after 5 days. 12/24/22 07:45 Blood Culture - Final Blood - Venous No growth after 5 days. Assessment and Plan (1) Hypercalcemia: Status: Acute (2) Sepsis: Status: Acute (3) UTI (urinary tract infection): Status: Acute (4) Decubitus ulcer of left buttock, unstageable: Status: Acute (5) Osteomyelitis: Status: Acute Plan 62F from [facility] with past medical history of congenital intellectual disability, frontotemporal cognitive disorder, HLD, seizures, hypothyroidism, PE on Eliquis, schizoaffective disorder, hypertension, multiple pressure ulcers, UTIs with chronic Randall, recent prolonged hospital admission (09/29-11/10 for aspiration PNA, sepsis, w/ PEG tube placement) admitted for sepsis related to UTI as well as multiple infected decubitus ulcers. Sepsis 2/2 UTI and infected decubitus ulcers/osteomyelitis unstageable ulcers to the bilateral buttock, stage3 ulcers to bilateral heels, stage 1 ulcer right lateral malleolus History +wound cultures from left heel growing MRSA, and proteus General surgery appreciated - local care, may need wound vac in future, but currently ulcer not ammenable to it Continue IV vanco and DC cefepime ID rec Ertapenem on DC To place PICC Sunday morning Follow Cultures Follow Vanco trough osteomyelitis L ischium- unspecified chronicity ID appreciated likely long-term iv abx, follow up cultures from wound Chronic dysphagia with PEG tube in place continue tube feeding diet acute on chronic anemia 2/2 chronic illness check occult stool, iron profile transfuse if drops below 7 Hypercalcemia, mild Could be related to immobilization Has high Protein\Albumin level investigate with Electropheresis, immunofixation, PTH, Vit D3, ALP start IVF nephrology following Hypothyroidism continue synthroid Mood disorder continue seroquel Large reducible hernia- suprapubic region no incarceration or strangulation outpt follow up history of pe eliquis Full code reason for continued hospitalization: iv abx, negative cultures pending PICC placement and discharge plan Time Spent With Patient Time: Total time managing care of this patient today ____ minutes. Quality Stroke Does the patient have a stroke diagnosis?: No VTE Prior VTE?: No VTE Risk Level:: Medical - moderate - high VTE Device Contraindication: Treatment Not Indicated VTE Drug Contraindication: N/A - Med Ordered
[2022-12-30 16:00] VITALS: BP 120/56; PULSE 110; RESP 18; TEMP 36.6; O2SAT 96
[2022-12-30 19:48] VITALS: BP 143/70; PULSE 115; RESP 20; TEMP 36.4; O2SAT 96
[2022-12-30] MEDS: Mirtazapine 7.5 MG TABLET G-TUBE (21:17)
--- NOTE | 2022-12-30 21:48 | PM.EVENT ---
Event Note Date of Service: 12/30/22 Event Note: pt w hematuria in cantu. UA is ordered. H&H ordered. Time Spent With Patient Time: Total time managing care of this patient today ____ minutes.
--- NOTE | 2022-12-30 22:12 | PC.NURSE ---
RN and aide noticed urine in cantu bag to be kaylynn/bloody with one medium shred, drainin freely. No note of previous urine color issue via last RN. Pt is being turned alot today due to freq loose stools, unsure if possibly got pulled at some point but notified MD of current urine still kaylynn coming out of cantu. MD ordered h/h and urine - lab collected and urine being sent down at this time.
[2022-12-30 22:42] LABS: Appearance Urine Cloudy; Bacteria Urine None Seen (None Seen); Color Urine Red; Glucose Urine UA Negative (Negative); Leukocyte Esterase Urine Moderate (2+) (Negative); Nitrite Urine Negative (Negative); PH 5.5 (5.0-9.0); RBC Urine >20 /HPF (0-2); UACC Culture Trigger YES; UMIC TRIGGER UACC YES; Urine Blood Large (3+) (Negative); Urine Ketones Negative (Negative); Urine Protein 300 (3+) mg/dL (Neg-Trace); WBC Urine >50 /HPF (0-5)
[2022-12-30 23:15] VITALS: BP 110/56; PULSE 100; RESP 18; TEMP 36; O2SAT 100
[2022-12-31 03:21] VITALS: BP 131/59; PULSE 77; RESP 18; TEMP 36; O2SAT 98
[2022-12-31] MEDS: traZODone HCL 100 MG TABLET 200 MG G-TUBE ×2 (06:30→17:17)
[2022-12-31] MEDS: Levothyroxine Sodium 100 MCG TABLET G-TUBE (06:30)
[2022-12-31 06:48] LABS: Hematocrit 27.3 % (37.0-47.0); Hemoglobin 7.7 g/dl (12.0-16.0); Mean Corpuscular HGB Conc 28.2 g/dl (31.0-35.0); Mean Corpuscular Hemoglobin 28.7 pg (27.0-33.0); Mean Corpuscular Volume 101.9 fL (80.0-98.0); Mean Platelet Volume 10.7 fL (9.4-12.3); Platelet Count 286 X10*3/uL (160-400); Red Blood Count 2.68 X10*6/uL (4.20-5.50); Red Cell Distribution Width 20.1 % (11.0-16.0); White Blood Count 9.1 X10*3/uL (4.8-10.8)
[2022-12-31 07:03] LABS: Anion Gap 12 (12-20); Blood Urea Nitrogen 27 mg/dL (9-16); Calcium 10.9 mg/dL (8.4-10.2); Carbon Dioxide 23 mmol/L (22-29); Chloride 107 mmol/L (96-108); Creatinine Clr Calc Pharmacy 83.1; Estimated Glomerular Filt Rate > 60; Glucose Random 96 mg/dL (60-115); Sodium 137 mmol/L (135-145)
[2022-12-31 07:53] VITALS: BP 119/62; PULSE 104; RESP 20; TEMP 36.4; O2SAT 97
[2022-12-31] MEDS: Nystatin Oral Susp 500,000 UNIT/5 ML ORAL.SUSP 400000 UNIT BUCCAL ×4 (09:32→22:55)
[2022-12-31] MEDS: QUEtiapine Fumarate 50 MG TABLET G-TUBE ×3 (09:32→22:55)
[2022-12-31] MEDS: Atorvastatin Calcium 10 MG TABLET G-TUBE (09:32)
[2022-12-31] MEDS: Ascorbic Acid 500 MG TABLET 1000 MG G-TUBE ×2 (09:32→22:55)
[2022-12-31] MEDS: Apixaban 2.5 MG TABLET G-TUBE ×2 (09:32→22:55)
[2022-12-31] MEDS: vancomycin HCL 750 MG in 0.9 % Sodium Chloride 250 ML 265 MG IV (09:33)
[2022-12-31] MEDS: Lactulose 20 GM/30 ML SOLUTION G-TUBE ×2 (09:45→22:55)
[2022-12-31] MEDS: Acetaminophen Oral Liquid 650 MG/20.3 ML SOLUTION 975 MG G-TUBE ×3 (10:08→22:54)
--- NOTE | 2022-12-31 10:25 | P.PNIM_ITS ---
Subjective Subjective Date of Service: 12/31/22 Interval History: Seen and evaluated this morning laying comfortable in bed unable to provide any complaints could not get PICC as she was not sitting for the procedure No reported overnight events Review of Systems Review of Systems: Yes Unobtainable due to mental status Physical Exam Vital Signs: Vital Signs: Last Vital Signs Temp 97.6 F 12/31/22 07:53 Pulse 104 H 12/31/22 07:53 Resp 20 12/31/22 07:53 BP 119/62 12/31/22 07:53 Pulse Ox 97 12/31/22 07:53 O2 Del Method Room Air 12/31/22 07:53 O2 Flow Rate 2 12/24/22 10:27 BMI result Body Mass Index 30.7 Const: Other: Constitutional : Awake, interactive with sounds and bed movements, mildly distressed Neck : Normal inspection, Supple Cardiovascular : RRR, no JVP, no lower extremity edema Respiratory : good bilateral air entry, no crackles, wheezes or rhonchi Gastrointestinal: soft, lax, Normal bowel sounds, Non tender, tube feed in place with no surrounding erythema or drainage Skin : Warm, Dry Neurological : unable to assess orientation, alert, moving all extremities , making sounds and some clear words on occasions Objective Data Active Medications Acetaminophen (Acetaminophen 325 Mg Tablet) 650 mg PO Q6H PRN PRN Reason: Pain, Mild (Pain Scale 1-3) Acetaminophen (Acetaminophen Oral Liquid 650 Mg/20.3 Ml Solution) 975 mg G-TUBE TID [facility] Last Admin: 12/31/22 10:08 Dose: 975 mg Documented By: NISHI Apixaban (Apixaban 2.5 Mg Tablet) 2.5 mg G-TUBE BID [facility] Last Admin: 12/31/22 09:32 Dose: 2.5 mg Documented By: NISHI Ascorbic Acid (Ascorbic Acid 500 Mg Tablet) 1,000 mg G-TUBE BID [facility] Last Admin: 12/31/22 09:32 Dose: 1,000 mg Documented By: NISHI Atorvastatin Calcium (Atorvastatin Calcium 10 Mg Tablet) 10 mg G-TUBE DAILY [facility] Last Admin: 12/31/22 09:32 Dose: 10 mg Documented By: NISHI Bisacodyl (Bisacodyl 10 Mg Supp.Rect) 10 mg [place] DAILY PRN PRN Reason: Constipation Docusate Sodium (Docusate Sodium 100 Mg Capsule) 100 mg PO DAILY PRN PRN Reason: Constipation Haloperidol Lactate (Haloperidol Lactate 5 Mg/Ml Vial) 2.5 mg IM ONCE PRN PRN Reason: PRe procedure Vancomycin HCl 750 mg/ Sodium (Chloride) 265 mls @ 265 mls/hr IV Q24H [facility] Last Admin: 12/31/22 09:33 Dose: 265 mls/hr Documented By: NISHI Lactulose (Lactulose 20 Gm/30 Ml Solution) 20 gm G-TUBE BID [facility] Last Admin: 12/31/22 09:45 Dose: 20 gm Documented By: NISHI Levothyroxine Sodium (Levothyroxine Sodium 100 Mcg Tablet) 100 mcg G-TUBE DAILY@0630 [facility] Last Admin: 12/31/22 06:30 Dose: 100 mcg Documented By: ROMEL Lorazepam (Lorazepam 2 Mg/Ml Vial) 1 mg IVPUSH ONCE PRN PRN Reason: anxiety/restlessness Mirtazapine (Mirtazapine 7.5 Mg Tablet) 7.5 mg G-TUBE BEDTIME [facility] Last Admin: 12/30/22 21:17 Dose: 7.5 mg Documented By: DAIANA Nystatin (Nystatin Oral Susp 500,000 Unit/5 Ml Oral.Susp) 400,000 unit BUCCAL QID [facility]; Protocol Last Admin: 12/31/22 09:32 Dose: 400,000 unit Documented By: NISHI Ondansetron HCl (Ondansetron Hcl 4 Mg/2 Ml Vial) 4 mg IVPUSH Q8H PRN PRN Reason: Nausea and Vomiting Pharmacy Consult (Consult Rx Perform Med Rec) 1 each MISCELLANE ONCE PRN PRN Reason: Consult order Pharmacy Consult (Consult Rx Vancomycin Dosing) 1 each MISCELLANE DAILY PRN PRN Reason: Consult order Quetiapine Fumarate (Quetiapine Fumarate 50 Mg Tablet) 50 mg G-TUBE TID [facility] Last Admin: 12/31/22 09:32 Dose: 50 mg Documented By: NISHI Sodium Biphosphate/Sodium Phosphate (Sodium Phosphate,[place]-Dibasic 133 Ml Enema) 118 ml [place] DAILY PRN PRN Reason: Constipation Sodium Chloride (0.9 % Sodium Chloride Flush 3 Ml Syringe) 3 ml IVFLUSH QSHIFT [facility] Last Admin: 12/31/22 09:34 Dose: 3 ml Documented By: NISHI Trazodone HCl (Trazodone Hcl 100 Mg Tablet) 200 mg G-TUBE BID@0600,1800 [facility] Last Admin: 12/31/22 06:30 Dose: 200 mg Documented By: ROMEL Valproic Acid (Valproic Acid (As Sodium Salt) 250 Mg/5 Ml Solution) 1,000 mg G- TUBE BID [facility] Last Admin: 12/31/22 09:32 Dose: 1,000 mg Documented By: NISHI Labs 12/31/22 05:58 12/31/22 05:58 Labs: Laboratory Results - last 24 hr 12/30/22 12/31/22 12/31/22 22:18 05:58 05:58 MCV 101.9 H MCH 28.7 MCHC 28.2 L RDW 20.1 H Plt Count 286 MPV 10.7 Absolute Nucleated RBC 0.000 Nucleated RBC % (auto) 0.0 Anion Gap 12 Estim Creat Clear Calc 83.1 Estimated GFR > 60 Random Glucose 96 Calcium 10.9 H Urine Color Red A Urine Appearance Cloudy Urine pH 5.5 Ur Specific [place] 1.010 Urine Protein 300 (3+) H Urine Glucose (UA) Negative Urine Ketones Negative Urine Blood Large (3+) H Urine Nitrite Negative Ur Leukocyte Esterase Moderate (2+) H Urine RBC >20 H Urine WBC >50 H Ur Squamous Epith Cells 3-5 Urine Bacteria None Seen Hyaline Casts 3-5 Microbiology Microbiology Results: Microbiology 12/26/22 14:03 Gram Stain - Final Buttock Right Routine Culture - Final Methicillin Res Staph Aureus Enterococcus faecalis Assessment and Plan (1) Hypercalcemia: Status: Acute (2) Sepsis: Status: Acute (3) Osteomyelitis: Status: Acute Plan 62F from [facility] with past medical history of congenital intellectual disability, frontotemporal cognitive disorder, HLD, seizures, hypothyroidism, PE on Eliquis, schizoaffective disorder, hypertension, multiple pressure ulcers, UTIs with chronic Randall, recent prolonged hospital admission (09/29-11/10 for aspiration PNA, sepsis, w/ PEG tube placement) admitted for sepsis related to UTI as well as multiple infected decubitus ulcers. Sepsis 2/2 UTI and infected decubitus ulcers/osteomyelitis unstageable ulcers to the bilateral buttock, stage3 ulcers to bilateral heels, stage 1 ulcer right lateral malleolus History +wound cultures from left heel growing MRSA, and proteus General surgery appreciated - local care, may need wound vac in future, but currently ulcer not ammenable to it Continue IV vanco and DC cefepime ID rec Ertapenem on DC To place PICC Sunday morning Follow Cultures Follow Vanco trough Keep NPO overnight osteomyelitis L ischium- unspecified chronicity ID appreciated likely senior living iv abx, follow up cultures from wound Chronic dysphagia with PEG tube in place continue tube feeding diet acute on chronic anemia 2/2 chronic illness check occult stool, iron profile transfuse if drops below 7 Hypercalcemia, mild Could be related to immobilization Has high Protein\Albumin level investigate with Electropheresis, immunofixation, PTH, Vit D3, ALP start IVF nephrology following Hypothyroidism continue synthroid Mood disorder continue seroquel Large reducible hernia- suprapubic region no incarceration or strangulation outpt follow up history of pe eliquis Full code reason for continued hospitalization: iv abx, negative cultures pending PICC placement and discharge plan Time Spent With Patient Time: Total time managing care of this patient today ____ minutes. Quality Stroke Does the patient have a stroke diagnosis?: No VTE Prior VTE?: No VTE Risk Level:: Medical - moderate - high VTE Device Contraindication: Treatment Not Indicated VTE Drug Contraindication: N/A - Med Ordered
[2022-12-31 11:16] VITALS: BP 134/58; PULSE 105; RESP 20; TEMP 37.1; O2SAT 95
[2022-12-31 16:14] VITALS: BP 129/64; PULSE 101; RESP 18; TEMP 37.2; O2SAT 97
[2022-12-31 19:28] VITALS: BP 126/58; PULSE 100; RESP 18; TEMP 36.1; O2SAT 94
[2022-12-31] MEDS: Mirtazapine 7.5 MG TABLET G-TUBE (22:54)
[2022-12-31 23:36] VITALS: BP 112/56; PULSE 96; RESP 18; TEMP 37.2; O2SAT 98
[2023-01-01 03:19] VITALS: BP 124/58; PULSE 96; RESP 18; TEMP 36; O2SAT 99
[2023-01-01] MEDS: Levothyroxine Sodium 100 MCG TABLET G-TUBE (06:41)
[2023-01-01] MEDS: traZODone HCL 100 MG TABLET 200 MG G-TUBE (06:41)
[2023-01-01 07:24] LABS: Creatinine Clr Calc Pharmacy 83.1; Estimated Glomerular Filt Rate > 60; Vancomycin Random 16.2 mcg/mL (15-20)
--- NOTE | 2023-01-01 07:31 | HE.PHANOTE ---
RE: ALEXEY Patients level came back this morning at 16.2. Will continue current dose of 750 mg Q24H. Renal function stable. Next draw tomorrow 01/02 @0600. Predicted AUC 530 mg/l/hr
[2023-01-01 07:35] VITALS: BP 148/70; PULSE 94; RESP 20; TEMP 36.3; O2SAT 97
[2023-01-01] MEDS: vancomycin HCL 750 MG in 0.9 % Sodium Chloride 250 ML 265 MG IV (09:12)
[2023-01-01] MEDS: Acetaminophen Oral Liquid 650 MG/20.3 ML SOLUTION 975 MG G-TUBE ×2 (09:13→17:47)
[2023-01-01] MEDS: QUEtiapine Fumarate 50 MG TABLET G-TUBE ×2 (09:14→17:50)
[2023-01-01] MEDS: Nystatin Oral Susp 500,000 UNIT/5 ML ORAL.SUSP 400000 UNIT BUCCAL ×2 (09:14→18:28)
[2023-01-01] MEDS: Ascorbic Acid 500 MG TABLET 1000 MG G-TUBE (09:15)
[2023-01-01] MEDS: Apixaban 2.5 MG TABLET G-TUBE (09:15)
[2023-01-01] MEDS: Atorvastatin Calcium 10 MG TABLET G-TUBE (09:15)
--- NOTE | 2023-01-01 11:15 | MHC.CLN ---
F/U PT CURRENTLY NPO PICC TO BE PLACED TODAY WHEN TF NEEDED; RECOMMEND RE-STARTING OSMOLITE 1.5 AT 60ML/HR WITH 30ML PROSOURCE X1 PER DAY AND 240ML FREE WATER FLUSHES Q 6 HRS PROVIDES 2220 TOTAL KCALS (31KCALS/KG BASED ON CMW), 105G TOTAL PROTEIN (1.5G/KG), 2057ML TOTAL WATER FROM FORMULA AND FLUSHES (29ML/KG) FORMULA SUITABLE TO PROMOTE WOUND HEALING CONTINUE TO MONITOR TOLERANCE, RESIDUALS AND LYTES
[2023-01-01 11:32] VITALS: BP 138/83; PULSE 99; RESP 20; TEMP 36.2; O2SAT 95
[2023-01-01] MEDS: Haloperidol Lactate 5 MG/ML VIAL IM ×2 (13:25→14:30)
[2023-01-01] MEDS: LORazepam 2 MG/ML VIAL 1 MG IVPUSH ×2 (13:47→14:30)
--- NOTE | 2023-01-01 15:18 | MHC.CM.PN ---
EMR reviewed and per MD rounds, pt medically cleared for D/C back to [facility] [place], pt awaiting PICC line and first dose of abx. Will transfer this evening at 5pm via [facility].
[2023-01-01 15:22] VITALS: BP 123/59; PULSE 106; RESP 18; TEMP 36.8; O2SAT 94
[2023-01-01] MEDS: Lidocaine HCl 1 % MPF 5 ML VIAL 6 ML SUBCUT (15:52)
[2023-01-01] MEDS: Ertapenem Sodium 1 GM in 0.9 % Sodium Chloride 50 ML IV (17:29)
[2023-01-01 17:33] LABS: Calcium, Random Urine 2.9 mg/dL
--- NOTE | 2023-01-01 17:50 | CONS_ITS ---
DATE OF SERVICE: 12/28/2022 REASON FOR CONSULTATION: I am asked the patient to assist in evaluation and management of patient's hypercalcemia as reflected by calcium today of 11.2, and looking back in the records, calcium was 11.1 on December 24 when admitted but previously the calcium have ranged anywhere from 9.2 to 10.9 in the past year. HISTORY OF PRESENT ILLNESS: In summary, the patient is a 62-year-old female from [facility] with history of congenital intellect, disability, cognitive disorder, hyperlipidemia, seizure disorder, hypothyroidism, history of PE, maintained on Eliquis, schizoaffective disorder, hypertension, multiple pressure skin ulcers and UTI with chronic Randall, who is nonverbal at baseline. The patient was admitted, concerned for urinary tract infection and decubitus wounds. Had been seen by Infectious Disease. We will need a prolonged course of antibiotics. We were asked to see her because of hypercalcemia as mentioned. PAST MEDICAL HISTORY: As mentioned above. ALLERGIES: SHE HAS MULTIPLE DRUG ALLERGIES LISTED IN THE EHR. CURRENT MEDICATIONS ON ADMISSION: Noted in the admitting notes. Current medications are as listed in the MAR. REVIEW OF SYSTEMS: Unobtainable. FAMILY HISTORY: Unobtainable. PHYSICAL EXAMINATION: VITAL SIGNS: Blood pressure of 106/60 with a heart rate in the 80s. HEAD: Atraumatic and normocephalic. NECK: Supple. Mucous membranes moist. LUNGS: Breath sounds bilaterally diminished at the bases. CARDIAC: Regular rate and rhythm. ABDOMEN: Soft, nontender. LABORATORY DATA: Labs from today show sodium 46, potassium 4.5, chloride 117, bicarb 20, BUN 26, creatinine 0.86, calcium 11.2, albumin 2.6. Intact PTH was 43. Vitamin D25 level was 36. IMPRESSION: 62-YEAR-OLD COGNITIVELY IMPAIRED. PATIENT ADMITTED WITH WOUND INFECTIONS REQUIRING ANTIBIOTICS AND NOTED TO HAVE HYPERCALCEMIA. 1. Hypercalcemia. This is most likely due to immobilization-associated hypercalcemia. The PTH is slightly depressed, perhaps not depressed as much as it should be. She is not on a thiazide diuretic, which can be associated with hypercalcemia. 2. Of note, because her serum albumin is low, most likely the ionized calcium seem higher than one would appreciate just above the serum calcium elevation. RECOMMENDATIONS: 1. At this time include continue to track the serum calcium. We will send the urine calcium creatinine ratio. We will check a serum immunofixation and ionized calcium. 2. We will follow the patient with the team. MD CASIE Carpenter/CLAUDIA / [id number]
[2023-01-03 18:04] LABS: VITAMIN D (1,25 OH) D3 17 pg/mL; Vit D (1,25-Dihydroxy) Total 17 pg/mL (18-72); Vitamin D (1,25 OH) D2 <8 pg/mL
[2023-01-04 14:04] LABS: Angiotensin Converting Enzyme 44 U/L (9-67)
[2023-01-04 17:47] LABS: Prot Elec - Albumin 2.6 g/dL (3.8-4.8); Prot Elec - Alpha1 0.6 g/dL (0.2-0.3); Prot Elec - Alpha2 0.8 g/dL (0.5-0.9); Prot Elec - Beta 1 0.4 g/dL (0.4-0.6); Prot Elec - Beta 2 0.2 g/dL (0.2-0.5); Prot Elec - Gamma 1.6 g/dL (0.8-1.7); Prot Elec - Total Protein 6.2 g/dL (6.1-8.1)
[2023-01-05 17:18] LABS: IgA <5 mg/dL (70-320); IgG 1984 mg/dL (600-1540); IgM 94 mg/dL (50-300)
== END 2023-01-01 19:15 | disposition skilled nursing facility (03) | DRG 871 ==
LOC: HO.ED 07:36 → HO.EDOVER 13:30 → HO.IMC 12-25 12:18
PROVIDERS: Internal Medicine; Internal Medicine Nephrology; Radiology Diagnostic Radiology; Admitting Provider Physician Assistant; Emergency Provider Emergency Medicine; PCP Internal Medicine; Visit Provider Student in an Organized Health Care Education/Training Program
DX: A41.9 Sepsis, unspecified organism (principal); L89.613 Pressure ulcer of right heel, stage 3; L89.623 Pressure ulcer of left heel, stage 3; N39.0 Urinary tract infection, site not specified; M86.18 Other acute osteomyelitis, other site; E87.0 Hyperosmolality and hypernatremia; I95.9 Hypotension, unspecified; R31.0 Gross hematuria; E03.9 Hypothyroidism, unspecified; L89.320 Pressure ulcer of left buttock, unstageable; L89.310 Pressure ulcer of right buttock, unstageable; L89.510 Pressure ulcer of right ankle, unstageable; B95.62 Methicillin resistant Staphylococcus aureus infection as the cause of diseases classified elsewhere; B95.2 Enterococcus as the cause of diseases classified elsewhere; R13.10 Dysphagia, unspecified; E83.52 Hypercalcemia; D64.9 Anemia, unspecified; K46.9 Unspecified abdominal hernia without obstruction or gangrene; Z93.1 Gastrostomy status; Z20.822 Contact with and (suspected) exposure to COVID-19; Z86.711 Personal history of pulmonary embolism; Z79.01 Long term (current) use of anticoagulants; Z79.890 Hormone replacement therapy; Z79.899 Other long term (current) drug therapy
CPT/HCPCS: 36415; 36573; 71045; 73620; 74177; 76937; 80048; 80053; 80076; 80202; 81001; 82164; 82306; 82310; 82330; 82565; 82652; 82784; 83540; 83605; 83970; 84075; 84165; 85025; 85027; 85610; 85652; 86140; 86334; 87040; 87070; 87077; 87086; 87186; 87205; 87635; 93005; 93971; 99285; C1751; C1758; J0692; J1335; J2060; J3370; Q9967

== ENCOUNTER 2022-12-24 13:23 | Outpatient (BNV) | payer MEDICARE, MEDICAID, SELFPAY | END 2023-01-01 13:30 | PROVIDERS: Admitting Provider Physician Assistant; Emergency Provider Emergency Medicine; PCP Internal Medicine; Visit Provider Radiology Diagnostic Radiology | DX: L89.623 Pressure ulcer of left heel, stage 3 (principal) | CPT/HCPCS: 36573 ==

== ENCOUNTER → 2022-12-24 13:23 | Outpatient (BNV) | payer MEDICARE, MEDICAID, SELFPAY | PROVIDERS: Admitting Provider Physician Assistant; Emergency Provider Emergency Medicine; PCP Internal Medicine; Visit Provider Surgery | DX: L89.623 Pressure ulcer of left heel, stage 3 (principal); L89.893 Pressure ulcer of other site, stage 3; L89.320 Pressure ulcer of left buttock, unstageable; L89.310 Pressure ulcer of right buttock, unstageable | CPT/HCPCS: 99222 ==

== ENCOUNTER → 2022-12-24 13:23 | Outpatient (BNV) | payer MEDICARE, MEDICAID, SELFPAY | PROVIDERS: Admitting Provider Physician Assistant; Emergency Provider Emergency Medicine; PCP Internal Medicine; Visit Provider Physician Assistant | DX: A41.9 Sepsis, unspecified organism (principal); N39.0 Urinary tract infection, site not specified; L89.320 Pressure ulcer of left buttock, unstageable; M86.9 Osteomyelitis, unspecified; E83.52 Hypercalcemia; L89.310 Pressure ulcer of right buttock, unstageable; L89.623 Pressure ulcer of left heel, stage 3; L89.893 Pressure ulcer of other site, stage 3 | CPT/HCPCS: 99223; 99232; 99233; 99238; 99499 ==

== ENCOUNTER → 2022-12-24 13:23 | Outpatient (BNV) | payer MEDICARE, MEDICAID, SELFPAY | PROVIDERS: Admitting Provider Physician Assistant; Emergency Provider Emergency Medicine; PCP Internal Medicine; Visit Provider Internal Medicine | DX: A41.9 Sepsis, unspecified organism (principal); N39.0 Urinary tract infection, site not specified; L89.320 Pressure ulcer of left buttock, unstageable | CPT/HCPCS: 99222 ==

== ENCOUNTER 2023-05-19 20:49 | Inpatient (IN) | payer MEDICARE, MEDICAID, SELFPAY ==
--- NOTE | ~2023-05-19 | XR_ITS ---
EXAMINATION: XR CALCANEUS, LEFT CLINICAL INFORMATION: Infection COMPARISON: 12/24/2022 TECHNIQUE: Lateral and axial views of the left calcaneus were obtained. FINDINGS: There is soft tissue swelling posterior to the calcaneus. No definite underlying osseous irregularity is seen the specifically indicate osteomyelitis. There is generalized osteopenia. No acute fracture is seen. XR/XR calcaneus LT min 2V IMPRESSION: Soft tissue swelling posterior to the calcaneus without underlying osseous irregularity to suggest osteomyelitis. Since radiographic sensitivity for early osteomyelitis is relatively limited, however, consider further evaluation with MRI if clinically warranted.
--- NOTE | ~2023-05-19 | XR_ITS ---
EXAMINATION: XR CHEST CLINICAL INFORMATION: Fever. COMPARISON: None available. TECHNIQUE: Frontal view of the chest was obtained. FINDINGS: Normal heart size. Mild aortic calcific atherosclerosis. No effusions or pneumothoraces. No focal pulmonary consolidation. Minimal number scattered horizontally oriented coarse reticular opacities within the left lung base which may represent minimal parenchymal scarring or minimal platelike atelectasis. XR/XR chest 1V IMPRESSION: 1. No acute cardiopulmonary abnormalities. No focal pulmonary consolidation. 2. Mild aortic calcific atherosclerosis.
--- NOTE | ~2023-05-19 | CT_ITS ---
EXAMINATION: CT ABDOMEN AND PELVIS WITH CONTRAST CLINICAL INFORMATION: Fever, abdominal pain COMPARISON: 12/24/2022 TECHNIQUE: Multidetector volumetric images were obtained from the superior aspect of the liver through the pubic symphysis following administration 85 mL of Omnipaque 350 intravenous contrast. Sagittal and coronal reformatted images were obtained on the technologist's workstation. Oral contrast: No This CT examination was performed using dose optimization techniques as appropriate, variously including the following: *Automated exposure control *Adjustment of mA and/or kV according to patient size (this includes techniques or standardized protocols for targeted exams where dose is matched to indication/reason for exam; i.e. extremities or head) *Use of iterative reconstruction technique DLP: 1082 mGy-cm FINDINGS: LUNG BASES: Curvilinear bibasilar atelectasis. Parenchyma is otherwise not adequately assessed due to motion artifact. LIVER, GALLBLADDER, AND BILIARY TREE: The liver is normal in size, shape, and attenuation. No focal hepatic lesion or biliary ductal dilatation is present. The gallbladder is unremarkable with no evidence of radiopaque gallstones, gallbladder wall thickening, or obvious pericholecystic inflammatory changes. PANCREAS: Unremarkable. SPLEEN: Unremarkable. ADRENAL GLANDS: There is a left adrenal nodule measuring up to 1.1 cm and 52 Hounsfield units. Right adrenal gland appears unremarkable. KIDNEYS AND URETERS: There is mild left hydroureteronephrosis extending to the ureterovesicular junction. No obstructing calculus is seen. No right hydronephrosis. A few small hypoattenuating foci bilaterally favor cysts; no follow-up recommended. Few scattered calculi noted in the right kidney measuring up to 7 mm. BLADDER: Decompressed with a Randall catheter. There is diffuse mural prominence which is nonspecific in this setting. GASTROINTESTINAL TRACT: Percutaneous gastrostomy tube is present. No convincing evidence of bowel obstruction. There is limited assessment for wall thickening within some segments of the colon due to luminal collapse, though there is a thick-walled appearance of the distal sigmoid colon and rectum in the setting. No free fluid or free air is seen. ABDOMINAL WALL: There is an infraumbilical abdominal wall hernia containing a short segment of colon, similar to prior. LYMPH NODES: Normal. VASCULAR: There is atherosclerotic calcification along the aorta and iliac arteries. PELVIC VISCERA: Small calcifications uterus suggest underlying fibroids. OSSEOUS STRUCTURES: Multilevel degenerative endplate changes in the spine. CT/CT abdomen pelvis w IV con IMPRESSION: 1. Mild left hydroureteronephrosis extending to the ureterovesicular junction. No obstructing calculus is seen, and this could reflect sequelae of a recently passed stone. Alternatively, this could be due to stricturing at the ureterovesicular junction which could be benign or malignant; further urologic workup is advised. 2. Diffuse mural prominence of the urinary bladder which is decompressed with a Randall catheter. This could be secondary to cystitis in the proper clinical setting. 3. Thick-walled appearance of the collapsed distal sigmoid colon and rectum, which could reflect proctocolitis in the proper clinical setting. 4. Infraumbilical abdominal wall hernia containing a short segment of colon, similar to prior. 5. Left adrenal nodule measuring 1.1 cm, which is nonspecific. Recommend 1-year followup adrenal protocol CT. Also, if clinically indicated, consider concurrent laboratory evaluation for possible pheochromocytoma.
[2023-05-19 21:00] VITALS: BP 148/84; PULSE 92
[2023-05-19 21:02] VITALS: BMI 32.3
--- NOTE | 2023-05-19 21:36 | PC.NURSE ---
pt refusing vital signs and lab work; will reapproach.
--- NOTE | 2023-05-19 22:38 | ECG_ITS ---
Test Reason : AMS Blood Pressure : / mmHG Vent. Rate : 114 BPM Atrial Rate : 114 BPM P-R Int : 124 ms QRS Dur : 078 ms QT Int : 322 ms P-R-T Axes : 054 061 051 degrees QTc Int : 443 ms Sinus tachycardia Otherwise normal ECG When compared with ECG of 24-DEC-2022 07:54, No significant change was found Referred By: Crow Stevens Electronically Signed By:KATE GARCIA MD
--- NOTE | 2023-05-19 22:41 | ED_ITS ---
HPI - General Adult General Chief complaint: GI Bleed Stated complaint: ? GI-Bleed Time Seen by Provider: 05/19/23 22:12 History of Present Illness HPI narrative: The patient is a 63-year-old woman with a history of chronic schizophrenia and severe intellectual disabilities who is severely disabled and lives chronically at the [facility] care home. Patient was sent to the emergency room here by ambulance from the facility after having reportedly having had an episode of dark and tarry stools earlier today. The patient is on apixaban. The patient is nonverbal and unable to give any history. No other history from the facility is available. On my initial evaluation of the patient here rectal temperature showed a fever of 101.2. Her problem list from the care home includes schizoaffective disorder, severe intellectual disabilities, retention of urine, hypertension, hyperlipidemia, hypothyroidism, PTSD, history of UTIs, history of C diff, GERD. Patient is on valproic acid. Related Data Home Medications Medication Instructions Recorded Confirmed apixaban 2.5 mg tablet (Eliquis) 2.5 mg feeding tube BID 01/02/22 12/24/22 atorvastatin 10 mg tablet 10 mg feeding tube DAILY 01/02/22 12/24/22 lactulose 10 gram/15 mL oral 20 g feeding tube BID 01/02/22 12/24/22 solution (Enulose) mirtazapine 7.5 mg tablet 7.5 mg feeding tube DAILY 01/02/22 12/24/22 quetiapine 50 mg tablet 50 mg feeding tube TID 01/02/22 12/24/22 trazodone 100 mg tablet 200 mg feeding tube BID 01/02/22 12/24/22 ascorbic acid (vitamin C) 1,000 mg 1,000 mg feeding tube BID 09/29/22 12/24/22 tablet (Vitamin C) bisacodyl 10 mg rectal suppository 10 mg MT DAILY PRN Constipation 09/29/22 12/24/22 tramadol 50 mg tablet 50 mg feeding tube Q12H PRN Pain 09/29/22 12/24/22 acetaminophen 160 mg/5 mL oral 960 mg feeding tube TID 12/24/22 12/24/22 elixir amino acids-protein hydrolysate 15 30 ea feeding tube BID 12/24/22 12/24/22 gram-100 kcal/30 mL oral liquid levothyroxine 100 mcg tablet 100 mcg feeding tube DAILY@0630 12/24/22 12/24/22 sodium phosphates 19 gram-7 118 ml MT DAILY PRN Constipation 12/24/22 12/24/22 gram/118 mL enema (Fleet Enema) valproic acid (as sodium salt) 250 1,000 mg feeding tube BID 12/24/22 12/24/22 mg/5 mL (5 mL) oral solution Previous Rx's Medication Instructions Recorded ertapenem 1 gram solution for 1 g IM Q24H #34 ea 12/29/22 injection nystatin 100,000 unit/mL oral 400,000 unit (4 mL) buccal QID 7 12/29/22 suspension days #112 mL Allergies Allergy/AdvReac Type Severity Reaction Status Date / Time aspirin Allergy Unknown Verified 12/24/22 07:25 chlorproethazine Allergy Unknown Verified 12/24/22 07:25 codeine Allergy Unknown Verified 12/24/22 07:25 guaifenesin Allergy Unknown Verified 12/24/22 07:25 Penicillins Allergy Unknown Verified 12/24/22 07:25 phenytoin Allergy Unknown Verified 12/24/22 07:25 potassium [From Potassimin] Allergy Unknown Verified 12/24/22 07:25 Review of Systems 2 Review of Systems: Yes Unobtainable due to mental status PMFSH Past Medical History Medical History Chronic kidney disease, stage 3 COVID Decubitus ulcer of buttock, right, unstageable Decubitus ulcer of left buttock, unstageable Deep vein thrombosis (DVT) of right upper extremity Dysphagia Fever of unknown origin Hx of fci use of blood thinners Hyperlipidemia Hypertension Hypothyroidism Intellectual disability Pressure injury of left heel, stage 3 Pressure sore on ankle Pressure ulcer of right leg, stage 3 Pulmonary embolism Schizoaffective disorder Surgical History S/P percutaneous endoscopic gastrostomy (PEG) tube placement Social History Social History Household Members: Unknown / Unable to assess Housing: Jail Unable to assess alcohol history related to: Unknown Alcohol intake: unknown Comment: does not ambulate Patient Tobacco Use Status: Tobacco use Unknown Advance Directives: No Advance Directives Information Provided: No service: No Current occupational status: disabled Physical Exam ED Vital Signs: Vital Signs - 24 hr 05/19/23 23:34 05/20/23 00:37 05/20/23 03:30 Temperature 101.1 F H 98.0 F 101.1 F H Pulse Rate 114 H 116 H 112 H Respiratory Rate 13 18 19 Blood Pressure 115/47 L 114/48 L 120/56 L Pulse Oximetry 96 94 93 Oxygen Delivery Method Room Air Room Air Nasal Cannula Oxygen Flow Rate 2 BMI result Body Mass Index 32.3 Const Other: The patient is an extremely chronically ill-appearing 63-year-old. She seems severely demented and vocalizes only in gibberish. She looks extremely chronically ill and debilitated. She also looks as though she may be dehydrated. She does not seem in respiratory distress. HENMT Other: Mucous membranes are dry Eyes Other: Pupils are round equal, conjunctivae are clear Neck Other: No JVD. No nuchal rigidity. Resp Other: Lungs are clear bilaterally Cardio Other: The patient is tachycardic. She has a regular rate and rhythm without murmur. GI Other: The abdomen seemed diffusely tender. Her exam is not very reliable given her mental status. Rectal exam did not reveal melena. Other: When I first examined the patient there seemed to be some bloody fluid in the diaper. The source of this fluid was not clear. After she was cleaned up I performed a digital vaginal exam that did not reveal any significant amount of blood. Skin Other: The skin for the most part is pale and dry. She has an obvious wound on the dorsum of the left heel which appears chronic but with some surrounding erythema that could be more acute. Neuro Other: Patient is awake but has a very abnormal mental status. She speaks in gibberish. She does not seem to have significant voluntary use her extremities. Extrem Other: There is no peripheral edema. The left heel has significant amount of skin breakdown and pressure wound. Medications Administered Discontinued Medications Generic Name Dose Route Start Last Admin Trade Name Freq PRN Reason Stop Dose Admin Sodium Chloride 1,000 mls @ 999 mls/hr 05/19/23 22:45 05/20/23 00:01 Ns IV 05/19/23 23:45 Infused .Q1H1M DEJUAN Infusion Ceftriaxone Sodium 1 gm/ 50 mls @ 100 mls/hr 05/19/23 23:23 05/19/23 23:58 Sodium Chloride IV 05/19/23 23:52 Infused ONCE ONE Infusion Sodium Chloride 1,000 mls @ 999 mls/hr 05/20/23 02:15 05/20/23 02:59 Ns IV 05/20/23 03:15 999 mls/hr .Q1H1M DEJUAN Administration Iohexol 85 ml 05/20/23 02:08 05/20/23 02:09 Iohexol 350 Mg/Ml 100 Ml Infus..Btl IV 05/20/23 02:09 85 ml ONCE ONE Administration Medical Decision Making Medical Decision Making [facility] Narrative: The patient is a 63-year-old woman who comes to the emergency room by ambulance from a long-term care facility. She is severely disabled both physically and cognitively. She has a history of cognitive impairment and schizoaffective disorder. She is nonambulatory. She is nonverbal. She was sent to the emergency department with a question of possible GI bleed. She is on apixaban. There was report of black stools. Here in the emergency department does not seem to have black stools but was noted to have a fever on rectal temperature. She has a chronic indwelling urinary catheter. There seemed to be some bloody material around the catheter which may have been coming from the urethra. A digital vaginal exam did not seem to suggest a vaginal source of bleeding. In any event the primary issue seems to be the patient's fever. Blood cultures were drawn and she was started on ceftriaxone [place] [id number]. Her lactate is normal. The patient has additional alternative possible sources of fever however. Her left heel has a chronic wound that was cultured. An x-ray of the left heel does not show obvious signs of osteomyelitis. Additionally the patient seemed to have possible diffuse abdominal tenderness. Her exam was not very reliable because of her mental status and her inability to communicate reliably. CT of the abdomen did not show any obvious surgical process. There was inflammation of the bladder consistent with cystitis. This would fit with her source of fever being a urinary source of fever. Patient will be admitted to the hospitalist service. Lab Data 05/19/23 23:08 05/19/23 23:09 Labs: Lab Results 05/19/23 05/19/23 05/19/23 Range/Units 23:08 23:09 23:16 WBC 21.9 H (4.8-10.8) X10*3/uL RBC 3.02 L (4.20-5.50) X10*6/uL Hgb 8.5 L (12.0-16.0) g/dl Hct 29.7 L (37.0-47.0) % MCV 98.3 H (80.0-98.0) fL MCH 28.1 (27.0-33.0) pg MCHC 28.6 L (31.0-35.0) g/dl RDW 18.8 H (11.0-16.0) % Plt Count 432 H D (160-400) X10*3/uL MPV 10.3 (9.4-12.3) fL Immature Gran % (Auto) 2.5 H (0.0-0.4) % Neut % (Auto) 80.8 H (45-73) % Lymph % (Auto) 9.3 L (20-40) % Gooding % (Auto) 6.0 (2-11) % Eos % (Auto) 1.0 (0-4) % Baso % (Auto) 0.4 (0-2) % Lymph # (Auto) 2.0 (1.2-4.9) X10*3/uL Gooding # (Auto) 1.3 H (0.1-1.2) X10*3/uL Eos # (Auto) 0.2 (0.0-0.4) X10*3/uL Baso # (Auto) 0.1 (0.0-0.2) X10*3/uL Abs Immat Gran (auto) 0.55 H (0.00-0.03) X10*3/uL Absolute Neuts (auto) 17.7 H (2.0-8.3) x10*3/uL Absolute Nucleated RBC 0.070 H (0.0-0.012) X10*3/uL Nucleated RBC % (auto) 0.3 H (0.0-0.2) /100WBC VBG pH (7.32-7.43) VBG pCO2 mmHg VBG pO2 mmHg VBG HCO3 (22-26) mmol/L VBG O2 Saturation % VBG Base Excess mmol/L Sodium 146 H (135-145) mmol/L Potassium 4.5 (3.3-5.1) mmol/L Chloride 106 (96-108) mmol/L Carbon Dioxide 30 H (22-29) mmol/L Anion Gap 15 (12-20) BUN 45 H (9-16) mg/dL Creatinine 1.40 (0.5-1.4) mg/dL Estim Creat Clear Calc 46.1 Estimated GFR 38 Random Glucose 77 (60-115) mg/dL Lactic Acid 1.4 (0.5-2.0) mmol/L Calcium 10.4 H (8.4-10.2) mg/dL Magnesium 2.2 (1.6-2.6) mg/dL Total Bilirubin 0.2 (0.0-1.0) mg/dL Direct Bilirubin < 0.2 (0.0-0.5) mg/dL AST 19 (5-31) U/L ALT 6 (0-31) U/L Alkaline Phosphatase 62 (39-117) U/L C-Reactive Protein 11.96 H (< or = 0.50) mg/dL Total Protein 7.6 (6.5-8.0) g/dL Albumin 2.9 L (3.5-5.0) g/dL Lipase 11 (8-78) U/L Urine Color DK YELLOW Urine Appearance Turbid Urine pH 7.0 (5.0-9.0) Ur Specific [place] 1.020 (1.005-1.025) Urine Protein 300 (3+) H (Neg-Trace) mg/dL Urine Glucose (UA) Negative (Negative) mg/dL Urine Ketones Negative (Negative) mg/dL Urine Blood Large (3+) H (Negative) Urine Nitrite Positive H (Negative) Ur Leukocyte Esterase Moderate (2+) H (Negative) Urine RBC >20 H (0-2) /HPF Urine WBC >50 H (0-5) /HPF Ur Squamous Epith Cells 0-2 (0-2) /HPF Urine Bacteria 1+ (None Seen) Hyaline Casts 3-5 (0-2) /LPF Valproic Acid (50.0-100.0) mcg/mL Influenza Type A (PCR) NEGATIVE (Negative) Influenza Type B (PCR) NEGATIVE (Negative) RSV RNA Qual (PCR) NEGATIVE (Negative) SARS-CoV-2 RNA (RT-PCR) NEGATIVE (Negative) 05/20/23 05/20/23 Range/Units 00:25 00:29 WBC (4.8-10.8) X10*3/uL RBC (4.20-5.50) X10*6/uL Hgb (12.0-16.0) g/dl Hct (37.0-47.0) % MCV (80.0-98.0) fL MCH (27.0-33.0) pg MCHC (31.0-35.0) g/dl RDW (11.0-16.0) % Plt Count (160-400) X10*3/uL MPV (9.4-12.3) fL Immature Gran % (Auto) (0.0-0.4) % Neut % (Auto) (45-73) % Lymph % (Auto) (20-40) % Gooding % (Auto) (2-11) % Eos % (Auto) (0-4) % Baso % (Auto) (0-2) % Lymph # (Auto) (1.2-4.9) X10*3/uL Gooding # (Auto) (0.1-1.2) X10*3/uL Eos # (Auto) (0.0-0.4) X10*3/uL Baso # (Auto) (0.0-0.2) X10*3/uL Abs Immat Gran (auto) (0.00-0.03) X10*3/uL Absolute Neuts (auto) (2.0-8.3) x10*3/uL Absolute Nucleated RBC (0.0-0.012) X10*3/uL Nucleated RBC % (auto) (0.0-0.2) /100WBC VBG pH 7.49 H (7.32-7.43) VBG pCO2 41 mmHg VBG pO2 45 mmHg VBG HCO3 31 H (22-26) mmol/L VBG O2 Saturation 77.0 % VBG Base Excess 7.8 mmol/L Sodium (135-145) mmol/L Potassium (3.3-5.1) mmol/L Chloride (96-108) mmol/L Carbon Dioxide (22-29) mmol/L Anion Gap (12-20) BUN (9-16) mg/dL Creatinine (0.5-1.4) mg/dL Estim Creat Clear Calc Estimated GFR Random Glucose (60-115) mg/dL Lactic Acid (0.5-2.0) mmol/L Calcium (8.4-10.2) mg/dL Magnesium (1.6-2.6) mg/dL Total Bilirubin (0.0-1.0) mg/dL Direct Bilirubin (0.0-0.5) mg/dL AST (5-31) U/L ALT (0-31) U/L Alkaline Phosphatase (39-117) U/L C-Reactive Protein (< or = 0.50) mg/dL Total Protein (6.5-8.0) g/dL Albumin (3.5-5.0) g/dL Lipase (8-78) U/L Urine Color Urine Appearance Urine pH (5.0-9.0) Ur Specific [place] (1.005-1.025) Urine Protein (Neg-Trace) mg/dL Urine Glucose (UA) (Negative) mg/dL Urine Ketones (Negative) mg/dL Urine Blood (Negative) Urine Nitrite (Negative) Ur Leukocyte Esterase (Negative) Urine RBC (0-2) /HPF Urine WBC (0-5) /HPF Ur Squamous Epith Cells (0-2) /HPF Urine Bacteria (None Seen) Hyaline Casts (0-2) /LPF Valproic Acid 36.1 L (50.0-100.0) mcg/mL Influenza Type A (PCR) (Negative) Influenza Type B (PCR) (Negative) RSV RNA Qual (PCR) (Negative) SARS-CoV-2 RNA (RT-PCR) (Negative) Independent Interpretation I performed an independent interpretation of an: EKG Discharge Plan Discharge Patient Disposition: Admitted As Inpatient
[2023-05-19] MEDS: 0.9 % Sodium Chloride 1,000 ML 999 ML IV (23:00)
[2023-05-19 23:21] LABS: MANUAL DIFF FLAG NO
[2023-05-19 23:24] LABS: Basophils Absolute Auto 0.1 X10*3/uL (0.0-0.2); Basophils Percent Auto 0.4 % (0-2); Eosinophils Absolute Auto 0.2 X10*3/uL (0.0-0.4); Hematocrit 29.7 % (37.0-47.0); Hemoglobin 8.5 g/dl (12.0-16.0); Imm Gran Abs Auto 0.55 X10*3/uL (0.00-0.03); Imm Gran Pct Auto 2.5 % (0.0-0.4); Lymphocytes Percent Auto 9.3 % (20-40); Mean Corpuscular HGB Conc 28.6 g/dl (31.0-35.0); Mean Corpuscular Hemoglobin 28.1 pg (27.0-33.0); Mean Corpuscular Volume 98.3 fL (80.0-98.0); Mean Platelet Volume 10.3 fL (9.4-12.3); Monocytes Absolute Auto 1.3 X10*3/uL (0.1-1.2); NRBC Pct Auto 0.3 /100WBC (0.0-0.2); Neutrophils Absolute Auto 17.7 x10*3/uL (2.0-8.3); Neutrophils Percent Auto 80.8 % (45-73); Platelet Count 432 X10*3/uL (160-400); Red Blood Count 3.02 X10*6/uL (4.20-5.50); Red Cell Distribution Width 18.8 % (11.0-16.0); White Blood Count 21.9 X10*3/uL (4.8-10.8)
[2023-05-19] MEDS: cefTRIAXone sodium 1 GM in 0.9 % Sodium Chloride 50 ML IV (23:28)
[2023-05-19 23:31] LABS: Appearance Urine Turbid; Color Urine DK YELLOW; Glucose Urine UA Negative (Negative); Leukocyte Esterase Urine Moderate (2+) (Negative); Nitrite Urine Positive (Negative); UMIC TRIGGER UACC YES; Urine Blood Large (3+) (Negative); Urine Ketones Negative (Negative); Urine Protein 300 (3+) mg/dL (Neg-Trace)
[2023-05-19 23:33] LABS: Lactic Acid 1.4 mmol/L (0.5-2.0)
[2023-05-19 23:34] VITALS: BP 115/47; PULSE 114; RESP 13; TEMP 38.4; O2SAT 96
--- NOTE | 2023-05-19 23:34 | PC.NURSE ---
at approx 2230 cantu cath was changed. pt tolerated well. urine collected and sent to lab.
[2023-05-19 23:41] LABS: Anion Gap 15 (12-20); Blood Urea Nitrogen 45 mg/dL (9-16); Carbon Dioxide 30 mmol/L (22-29); Chloride 106 mmol/L (96-108); Creatinine Clr Calc Pharmacy 46.1; Estimated Glomerular Filt Rate 38; Glucose Random 77 mg/dL (60-115); Potassium 4.5 mmol/L (3.3-5.1); Sodium 146 mmol/L (135-145)
[2023-05-19 23:50] LABS: Bacteria Urine 1+ (None Seen); RBC Urine >20 /HPF (0-2); Squamous Epithelial Cell Urine 0-2 /HPF (0-2); UACC Culture Trigger YES; WBC Urine >50 /HPF (0-5)
[2023-05-20] VITALS (9 sets, daily range): BP systolic 92–123; BP diastolic 47–61; PULSE 92–116; RESP 17–20; TEMP 36–38.9; O2SAT 93–100
[2023-05-20 00:01] LABS: Influenza A PCR NEGATIVE (Negative); Influenza B PCR NEGATIVE (Negative); Resp Syncy Virus RNA Qual PCR NEGATIVE (Negative); SARS COV2 PCR INHOUSE NEGATIVE (Negative)
[2023-05-20 00:22] LABS: Calcium 10.4 mg/dL (8.4-10.2)
[2023-05-20 00:34] LABS: Venous Blood Gas Refer to POC result
[2023-05-20 00:36] LABS: VBG Base Excess 7.8 mmol/L; VBG HCO3 31 mmol/L (22-26); VBG pCO2 41 mmHg; VBG pH 7.49 (7.32-7.43); VBG pO2 45 mmHg
[2023-05-20 00:41] LABS: Alanine Aminotransferase 6 U/L (0-31); Albumin Level 2.9 g/dL (3.5-5.0); Alkaline Phosphatase 62 U/L (39-117); Aspartate Amino Transferase 19 U/L (5-31); Bilirubin Direct < 0.2 mg/dL (0.0-0.5); Bilirubin Total 0.2 mg/dL (0.0-1.0); C Reactive Protein 11.96 mg/dL (< or = 0.50); Lipase 11 U/L (8-78); Magnesium 2.2 mg/dL (1.6-2.6); Total Protein 7.6 g/dL (6.5-8.0)
[2023-05-20 00:48] LABS: Valproate 36.1 mcg/mL (50.0-100.0)
[2023-05-20] MEDS: iohexoL 350 MG/ML 100 ML INFUS..BTL 85 ML IV (02:09)
[2023-05-20] MEDS: 0.9 % Sodium Chloride 1,000 ML 999 ML IV (02:59)
--- NOTE | 2023-05-20 05:58 | PM.IMHP ---
History of Present Illness Date of Service: 05/20/23 Attending physician on admission: Cornelius Fan Chief Complaint: From [facility] reportedly passed dark & tarry stools concerning for GI bleed Date: 05/20/2023 Source: Review of SNF notes and our EMR including ED notes. Patient is a 63 year old severely demented white female with PMH of dysphagia (s/op G-tube placement), schizoaffective disorder, severe intellectual disability, urinary retention (now with a chronic indwelling cantu catheter), C. diff colitis, hypertension, hyperlipidemia, hypothyroidism, Vitamin D Deficiency, PTSD, anxiety, PVD, GERD, bullous pemphigoid, pressure ulcers, DVT of righ upper extremity (on Eliquis), and fecal incontinence brought in from [facility] where she currently resigns for evaluation of possible GI bleed. She was reportedly passing dark and tarry stools earlier in the day and is on Apixaban and hence this was concerning. However, evaluation in the ED did not reveal any tarry stools. Her initial vital signs were notable for a fever off 101.2 F, tachycardia (112) and lab work showed a leukocytosis of 21.9 k/mm3 and mild hypernatremia at 146 mg/dl. She has a chronic indwelling cantu catheter and a urinalysis done was concerning for a UTI with positive urine nitrites, 2+ leukocyte esterase, > 50 WBC/HPF and 1+ bacteria. An assessment of UROSEPSIS was made and she was started on intravenous Ceftriaxone and admission requested. She unfortunately is demented an not able to give any history. 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 Pulmonary embolism Chronic kidney disease, stage 3 Intellectual disability Schizoaffective disorder Functional capacity: bed bound Surgical History S/P percutaneous endoscopic gastrostomy (PEG) tube placement Social History Household Members: Unknown / Unable to assess Housing: Long Term Unable to assess alcohol history related to: Unknown Alcohol intake: unknown Comment: does not ambulate Patient Tobacco Use Status: Tobacco use Unknown Advance Directives: No Advance Directives Information Provided: No service: No Current occupational status: disabled Meds Allergies Allergy/AdvReac Type Severity Reaction Status Date / Time aspirin Allergy Unknown Verified 05/20/23 05:48 chlorproethazine Allergy Unknown Verified 05/20/23 05:48 codeine Allergy Unknown Verified 05/20/23 05:48 guaifenesin Allergy Unknown Verified 05/20/23 05:48 Penicillins Allergy Unknown Verified 05/20/23 05:48 phenytoin Allergy Unknown Verified 05/20/23 05:48 potassium [From Potassimin] Allergy Unknown Verified 05/20/23 05:48 Home Medications Medication Instructions Recorded Confirmed Last Taken Type apixaban 2.5 mg tablet (Eliquis) 2.5 mg feeding tube BID 01/02/22 05/20/23 12/24/22 History atorvastatin 10 mg tablet 10 mg feeding tube DAILY 01/02/22 05/20/23 12/24/22 History lactulose 10 gram/15 mL oral 20 g feeding tube BID 01/02/22 05/20/23 12/24/22 History solution (Enulose) mirtazapine 7.5 mg tablet 7.5 mg feeding tube DAILY 01/02/22 05/20/23 12/24/22 History quetiapine 50 mg tablet 50 mg feeding tube TID 01/02/22 05/20/23 12/24/22 History trazodone 100 mg tablet 200 mg feeding tube BID 01/02/22 05/20/23 12/24/22 History ascorbic acid (vitamin C) 1,000 mg 1,000 mg feeding tube BID 09/29/22 05/20/23 12/24/22 History tablet (Vitamin C) bisacodyl 10 mg rectal suppository 10 mg NE DAILY PRN Constipation 09/29/22 05/20/23 Unknown History tramadol 50 mg tablet 50 mg feeding tube Q12H PRN Pain 09/29/22 05/20/23 12/19/22 History acetaminophen 160 mg/5 mL oral 960 mg feeding tube TID 12/24/22 05/20/23 12/24/22 History elixir amino acids-protein hydrolysate 15 30 ea feeding tube BID 12/24/22 05/20/23 12/24/22 History gram-100 kcal/30 mL oral liquid levothyroxine 100 mcg tablet 100 mcg feeding tube DAILY@0630 12/24/22 05/20/23 12/24/22 History sodium phosphates 19 gram-7 118 ml NE DAILY PRN Constipation 12/24/22 05/20/23 Unknown History gram/118 mL enema (Fleet Enema) valproic acid (as sodium salt) 250 1,000 mg feeding tube BID 12/24/22 05/20/23 12/24/22 History mg/5 mL (5 mL) oral solution Physical Exam Vital Signs and Narrative: Vital Signs: Last Vital Signs Temp 101.1 F H 05/20/23 03:30 Pulse 112 H 05/20/23 03:30 Resp 19 05/20/23 03:30 BP 120/56 L 05/20/23 03:30 Pulse Ox 93 05/20/23 03:30 O2 Del Method Nasal Cannula 05/20/23 03:30 O2 Flow Rate 2 05/20/23 03:30 BMI result Body Mass Index 32.3 General: Obese WF in bed. Awake and alert. Not in distress. Not able to follow instructions. Speaking gibberish. Eyes: No pallor or jaundice. EDDIE. HENT: DRY oral mucus membranes. Neck: Supple. No cervical adenopathy. No JVD Cardiovascular: Tachycardic but regular. Normal heart sounds. No murmurs, rubs or gallops. No JVD. No peripheral edema. Respiratory: Normal respiratory effort with no accessory muscle use. CTAB. Gastrointestinal: Abdomen is obese, flabby with G-tube in place. Also with ventral hernias. Otherwise soft, non-tender, non-distended. NABS. No visceromegally. Extremities: No edema. No calf tenderness. Good peripheral pulses Skin - Warm/Dry. No rashes. No mottling. Capillary refill is < 2 seconds Neurological: Awake and alert. Speaking gibberish. Not able to follow instruction. Comprehensive neuro exam (including CN exam) was not done. Hematologic: No bleeding. No ecchymosis. No swollen or tender lymph nodes. Psychiatric: Irritable and crying out in pain whenever touched. . Results Labs 05/19/23 23:08 05/19/23 23:09 Labs: Laboratory Results - last 24 hr 05/19/23 05/19/23 05/19/23 23:08 23:09 23:16 MCV 98.3 H MCH 28.1 MCHC 28.6 L RDW 18.8 H Plt Count 432 H D MPV 10.3 Immature Gran % (Auto) 2.5 H Neut % (Auto) 80.8 H Lymph % (Auto) 9.3 L [place] % (Auto) 6.0 Eos % (Auto) 1.0 Baso % (Auto) 0.4 Lymph # (Auto) 2.0 [place] # (Auto) 1.3 H Eos # (Auto) 0.2 Baso # (Auto) 0.1 Abs Immat Gran (auto) 0.55 H Absolute Neuts (auto) 17.7 H Absolute Nucleated RBC 0.070 H Nucleated RBC % (auto) 0.3 H VBG pH VBG pCO2 VBG pO2 VBG HCO3 VBG O2 Saturation VBG Base Excess Anion Gap 15 Estim Creat Clear Calc 46.1 Estimated GFR 38 Random Glucose 77 Lactic Acid 1.4 Calcium 10.4 H Magnesium 2.2 Total Bilirubin 0.2 Direct Bilirubin < 0.2 AST 19 ALT 6 Alkaline Phosphatase 62 C-Reactive Protein 11.96 H Total Protein 7.6 Albumin 2.9 L Lipase 11 Urine Color DK YELLOW Urine Appearance Turbid Urine pH 7.0 Ur Specific [place] 1.020 Urine Protein 300 (3+) H Urine Glucose (UA) Negative Urine Ketones Negative Urine Blood Large (3+) H Urine Nitrite Positive H Ur Leukocyte Esterase Moderate (2+) H Urine RBC >20 H Urine WBC >50 H Ur Squamous Epith Cells 0-2 Urine Bacteria 1+ Hyaline Casts 3-5 Valproic Acid Influenza Type A (PCR) NEGATIVE Influenza Type B (PCR) NEGATIVE RSV RNA Qual (PCR) NEGATIVE SARS-CoV-2 RNA (RT-PCR) NEGATIVE 05/20/23 05/20/23 00:25 00:29 MCV MCH MCHC RDW Plt Count MPV Immature Gran % (Auto) Neut % (Auto) Lymph % (Auto) [place] % (Auto) Eos % (Auto) Baso % (Auto) Lymph # (Auto) [place] # (Auto) Eos # (Auto) Baso # (Auto) Abs Immat Gran (auto) Absolute Neuts (auto) Absolute Nucleated RBC Nucleated RBC % (auto) VBG pH 7.49 H VBG pCO2 41 VBG pO2 45 VBG HCO3 31 H VBG O2 Saturation 77.0 VBG Base Excess 7.8 Anion Gap Estim Creat Clear Calc Estimated GFR Random Glucose Lactic Acid Calcium Magnesium Total Bilirubin Direct Bilirubin AST ALT Alkaline Phosphatase C-Reactive Protein Total Protein Albumin Lipase Urine Color Urine Appearance Urine pH Ur Specific [place] Urine Protein Urine Glucose (UA) Urine Ketones Urine Blood Urine Nitrite Ur Leukocyte Esterase Urine RBC Urine WBC Ur Squamous Epith Cells Urine Bacteria Hyaline Casts Valproic Acid 36.1 L Influenza Type A (PCR) Influenza Type B (PCR) RSV RNA Qual (PCR) SARS-CoV-2 RNA (RT-PCR) Imaging Radiologist's Impressions: Impressions Chest X-Ray 05/19/23 23:12 IMPRESSION: 1. No acute cardiopulmonary abnormalities. No focal pulmonary consolidation. 2. Mild aortic calcific atherosclerosis. Calcaneus X-Ray 05/20/23 00:38 IMPRESSION: Soft tissue swelling posterior to the calcaneus without underlying osseous irregularity to suggest osteomyelitis. Since radiographic sensitivity for early osteomyelitis is relatively limited, however, consider further evaluation with MRI if clinically warranted. Abdomen/Pelvis CT 05/20/23 02:12 IMPRESSION: 1. Mild left hydroureteronephrosis extending to the ureterovesicular junction. No obstructing calculus is seen, and this could reflect sequelae of a recently passed stone. Alternatively, this could be due to stricturing at the ureterovesicular junction which could be benign or malignant; further urologic workup is advised. 2. Diffuse mural prominence of the urinary bladder which is decompressed with a Cantu catheter. This could be secondary to cystitis in the proper clinical setting. 3. Thick-walled appearance of the collapsed distal sigmoid colon and rectum, which could reflect proctocolitis in the proper clinical setting. 4. Infraumbilical abdominal wall hernia containing a short segment of colon, similar to prior. 5. Left adrenal nodule measuring 1.1 cm, which is nonspecific. Recommend 1-year followup adrenal protocol CT. Also, if clinically indicated, consider concurrent laboratory evaluation for possible pheochromocytoma. Assessment and Plan (1) Sepsis: Qualifiers: Severe sepsis acute organ dysfunction type: acute renal failure Sepsis type: sepsis due to unspecified organism Sepsis acute organ dysfunction status: with acute organ dysfunction Acute renal failure type: unspecified Severe sepsis shock status: without septic shock Qualified Code(s): A41.9 - Sepsis, unspecified organism; R65.20 - Severe sepsis without septic shock; N17.9 - Acute kidney failure, unspecified Status: Resolved (2) Acute cystitis: Qualifiers: Hematuria presence: with hematuria Qualified Code(s): N30.01 - Acute cystitis with hematuria Status: Acute (3) Dehydration: Status: Acute (4) Pressure injury of left heel, stage 3: Status: Acute (5) Sepsis: Qualifiers: Sepsis type: sepsis due to unspecified organism Sepsis acute organ dysfunction status: with acute organ dysfunction Severe sepsis acute organ dysfunction type: acute renal failure Acute renal failure type: unspecified Severe sepsis shock status: without septic shock Qualified Code(s): A41.9 - Sepsis, unspecified organism; R65.20 - Severe sepsis without septic shock; N17.9 - Acute kidney failure, unspecified Status: Acute (6) Urinary tract infection with fever: Status: Acute Plan 63 year old severely demented white female with PMH of dysphagia (s/op G-tube placement), schizoaffective disorder, severe intellectual disability, urinary retention (now with a chronic indwelling Cantu catheter), C. diff colitis, hypertension, hyperlipidemia, hypothyroidism, Vitamin D Deficiency, PTSD, anxiety, PVD, GERD, bullous pemphigoid, pressure ulcers, DVT of righ upper extremity (on Eliquis), and fecal incontinence here with: 1. Urosepsis - change Cantu catheter - admit to telemetry - continue with IV Ceftriaxone 2. Dysphagia - resume Jevity 1.2 Sudarshan t 70 ml/hr x20 hrs and hold for 4 hours (10 am-2pm) - all meds per G-tube 3. H/O DVT - resume Eliquis 4. Hypothyroidism - resume Levothyroxine 5. Hyperlipidemia - resume Atorvastatin Will resume the rest of her outpatient medications DVT: SC Lovenox CODE STATUS: Full code Admission for at least 2 midnights for management of urosepsis with IV antibiotics Total time managing care of this patient today: 75 minutes. Quality Stroke Does the patient have a stroke diagnosis?: No VTE Prior VTE?: Yes VTE Risk Level:: Medical - moderate - high VTE Device Contraindication: Treatment Not Indicated VTE Drug Contraindication: N/A - Med Ordered
--- NOTE | 2023-05-20 07:13 | PC.NURSE ---
Assumed care of pt at this time; All safety measures in place.
[2023-05-20] MEDS: Acetaminophen Child Oral Liq 160 MG/5 ML UD Cup 960 MG G-TUBE ×3 (08:05→20:33)
--- NOTE | 2023-05-20 08:05 | PHA.MEDREC ---
Pharmacy Consult ? Medication Reconciliation Pharmacy has completed the medication reconciliation. PHARMACY HAS REVIEWED MED REC DONE BY NURSING. CORRECTIONS MADE AND PROVIDER NOTIFIED.
[2023-05-20] MEDS: Ferrous Sulfate 300 MG/5 ML LIQUID 352 MG PO (09:18)
[2023-05-20] MEDS: Lactulose 20 GM/30 ML SOLUTION G-TUBE ×2 (09:18→23:37)
[2023-05-20] MEDS: traZODone HCL 100 MG TABLET 200 MG G-TUBE ×2 (09:19→20:34)
[2023-05-20] MEDS: QUEtiapine Fumarate 50 MG TABLET G-TUBE ×3 (09:19→20:33)
[2023-05-20] MEDS: Erythromycin Base 0.5% Oph Oin 1 GM TUBE 1 CM EYE-BOTH ×3 (09:19→20:34)
[2023-05-20] MEDS: Ascorbic Acid 500 MG TABLET 1000 MG G-TUBE ×2 (09:19→20:33)
[2023-05-20] MEDS: Apixaban 2.5 MG TABLET G-TUBE ×2 (09:19→20:34)
[2023-05-20] MEDS: Atorvastatin Calcium 10 MG TABLET G-TUBE (09:19)
[2023-05-20] MEDS: Mirtazapine 7.5 MG TABLET G-TUBE (09:19)
[2023-05-20] MEDS: 0.9 % Sodium Chloride Flush 3 ML SYRINGE IVFLUSH ×3 (09:20→20:34)
--- NOTE | 2023-05-20 09:30 | MHC.CM.PN ---
CM spoke with Guardian/Edith @ [phone] and addressed IMM with her (original will be mailed certified mail to Edith and a copy has been placed on the chart). Patient is a LTC Resident at [facility] and returning there is the goal. CELIA has initiated and will follow for dc planning.
--- NOTE | 2023-05-20 13:09 | PM.EVENT ---
Event Note Date of Service: 05/20/23 Event Note: Seen and evaluated altered, difficult to arouse To start tube feed Continue IV antibiotics Monitor response Time Spent With Patient Time: Total time managing care of this patient today ____ minutes.
[2023-05-20] MEDS: cefEPime HCl 2 GM in 0.9 % Sodium Chloride 50 ML IV (14:00)
[2023-05-20 16:19] LABS: CDiff Gene PCR POSITIVE (Negative)
[2023-05-20 16:48] LABS: CDIFF Internal ctrl Dots and bkg OK (V); CDiff Toxin Positive (Negative)
[2023-05-20] MEDS: vancomycin HCL Oral Solution 125 MG/5 ML SOLN.RECON PO (20:34)
[2023-05-21] MEDS: vancomycin HCL Oral Solution 125 MG/5 ML SOLN.RECON PO ×4 (03:24→22:41)
[2023-05-21 04:00] VITALS: BP 104/61; PULSE 94; RESP 18; TEMP 36.7; O2SAT 98
[2023-05-21] MEDS: Levothyroxine Sodium 100 MCG TABLET G-TUBE (05:59)
[2023-05-21 06:00] VITALS: BMI 35.5
--- NOTE | 2023-05-21 07:20 | HO.SKINPHOTO ---
Location: Category: Stage: Length: Width: Depth: cm Location: Category: Stage: Length: Width: Depth: cm Location: Category: Stage: Length: Width: Depth: cm Location: Category: Stage: Length: Width: Depth: cm Location: Category: Stage: Length: Width: Depth: cm Location: Category: Stage: Length: Width: Depth: cm barbi
--- NOTE | 2023-05-21 07:23 | HO.SKINPHOTO ---
Location: Category: Stage: Length: Width: Depth: cm Location: Category: Stage: Length: Width: Depth: cm Location: Category: Stage: Length: Width: Depth: cm Location: Category: Stage: Length: Width: Depth: cm Location: Category: Stage: Length: Width: Depth: cm Location: Category: Stage: Length: Width: Depth: cm Left Heel Right Heel Unstagable to the R buttock
[2023-05-21 07:37] VITALS: BP 148/86; PULSE 91; RESP 17; TEMP 36.3; O2SAT 100
[2023-05-21 08:08] LABS: MANUAL DIFF FLAG NO
[2023-05-21 08:35] LABS: Basophils Absolute Auto 0.1 X10*3/uL (0.0-0.2); Basophils Percent Auto 0.4 % (0-2); Eosinophils Absolute Auto 0.2 X10*3/uL (0.0-0.4); Eosinophils Percent Auto 1.5 % (0-4); Hematocrit 28.3 % (37.0-47.0); Hemoglobin 7.9 g/dl (12.0-16.0); Imm Gran Abs Auto 0.32 X10*3/uL (0.00-0.03); Imm Gran Pct Auto 2.7 % (0.0-0.4); Lymphocytes Absolute Auto 1.6 X10*3/uL (1.2-4.9); Mean Corpuscular HGB Conc 27.9 g/dl (31.0-35.0); Mean Corpuscular Hemoglobin 28.5 pg (27.0-33.0); Mean Corpuscular Volume 102.2 fL (80.0-98.0); Mean Platelet Volume 10.7 fL (9.4-12.3); Monocytes Percent Auto 8.6 % (2-11); NRBC Pct Auto 0.5 /100WBC (0.0-0.2); Neutrophils Absolute Auto 8.9 x10*3/uL (2.0-8.3); Neutrophils Percent Auto 73.8 % (45-73); Platelet Count 367 X10*3/uL (160-400); Red Blood Count 2.77 X10*6/uL (4.20-5.50); Red Cell Distribution Width 18.3 % (11.0-16.0)
[2023-05-21 08:43] LABS: Alanine Aminotransferase 5 U/L (0-31); Albumin Level 2.6 g/dL (3.5-5.0); Alkaline Phosphatase 55 U/L (39-117); Anion Gap 13 (12-20); Aspartate Amino Transferase 14 U/L (5-31); Bilirubin Total 0.1 mg/dL (0.0-1.0); Blood Urea Nitrogen 39 mg/dL (9-16); Calcium 9.7 mg/dL (8.4-10.2); Carbon Dioxide 28 mmol/L (22-29); Chloride 112 mmol/L (96-108); Creatinine Clr Calc Pharmacy 45.1; Estimated Glomerular Filt Rate 35; Glucose Random 99 mg/dL (60-115); Potassium 4.1 mmol/L (3.3-5.1); Sodium 149 mmol/L (135-145); Total Protein 6.6 g/dL (6.5-8.0)
[2023-05-21 08:45] LABS: Parathyroid Hormone Intact 91.8 pg/mL (8.7-77.1)
[2023-05-21] MEDS: Acetaminophen Child Oral Liq 160 MG/5 ML UD Cup 960 MG G-TUBE ×2 (09:26→14:54)
[2023-05-21] MEDS: QUEtiapine Fumarate 50 MG TABLET G-TUBE ×3 (09:27→22:41)
[2023-05-21] MEDS: Erythromycin Base 0.5% Oph Oin 1 GM TUBE 1 CM EYE-BOTH ×3 (09:27→22:42)
[2023-05-21] MEDS: Apixaban 2.5 MG TABLET G-TUBE ×2 (09:27→22:41)
[2023-05-21] MEDS: Mirtazapine 7.5 MG TABLET G-TUBE (09:27)
[2023-05-21] MEDS: traZODone HCL 100 MG TABLET 200 MG G-TUBE ×2 (09:27→22:41)
[2023-05-21] MEDS: Ferrous Sulfate 300 MG/5 ML LIQUID 352 MG PO (09:27)
[2023-05-21] MEDS: Ascorbic Acid 500 MG TABLET 1000 MG G-TUBE ×2 (09:27→22:41)
[2023-05-21] MEDS: Atorvastatin Calcium 10 MG TABLET G-TUBE (09:27)
[2023-05-21] MEDS: 0.9 % Sodium Chloride Flush 3 ML SYRINGE IVFLUSH (09:28)
[2023-05-21] MEDS: Dextrose 5 % 1,000 ML 125 ML IVCONT ×2 (09:56→18:00)
--- NOTE | 2023-05-21 11:01 | MHC.CM.PN ---
PER MD ROUNDS, PT EXPECTED TO BE CLEARED TO DC TOMORROW DCP RETURN TO [facility]: QUINN [phone]
[2023-05-21 11:27] VITALS: BMI 35.5
--- NOTE | 2023-05-21 11:43 | MHC.CLN ---
RE: CONSULT PT WITH INCREASED NUTRITION RISK R/T PRESSURE INJURIES PT IS DEPENDENT ON TF FOR NUTRITION SUPPORT PT RECEIVING OSMOLITE 1.5 AT MAX GOAL RATE 60ML/HR WITH 240ML FREE WATER FLUSHES Q 6 HRS PROVIDES 2160KCALS (30KCALS/KG), 90G PROTEIN (1.25G/KG), 2057ML TOTAL WATER FROM FORMULA AND FLUSHES (28.6ML/KG) MONITOR TOLERANCE, RESIDUALS AND LYTES SEE FULL CLINICAL NUTRITION ASSESSMENT
[2023-05-21 11:45] LABS: Anion Gap 14 (12-20); Blood Urea Nitrogen 37 mg/dL (9-16); Calcium 9.6 mg/dL (8.4-10.2); Carbon Dioxide 25 mmol/L (22-29); Chloride 112 mmol/L (96-108); Creatinine Clr Calc Pharmacy 44.3; Estimated Glomerular Filt Rate 34; Glucose Random 122 mg/dL (60-115); Sodium 147 mmol/L (135-145)
[2023-05-21 11:58] VITALS: BP 109/54; PULSE 94; RESP 17; TEMP 36.2; O2SAT 98
--- NOTE | 2023-05-21 12:59 | P.CDIM_ITS ---
PROVIDER RESPONSE TEXT: To clarify, the appropriate diagnosis supported by the clinical indicators: Yes, UTI is related to / associated with / due to chronic indwelling cantu catheter QUERY TEXT: PHYSICIAN'S DOCUMENTATION REQUEST Date of Query: 05/21/2023 12:48 PM EST Patient Name: MIKO DAVID Admit Date: 05/20/2023 Dear Dave Shah, A review of the medical record indicates additional documentation may be needed. Please review below and update the documentation accordingly. Documentation includes the conditions of UTI and chronic indwelling cantu catheter. Clinical Indicators: Treated with IV antibiotic Please clarify the relationship between these conditions: Yes, UTI is related to / associated with / due to chronic indwelling cantu catheter No, UTI is not related to / associated with / due to chronic indwelling cantu catheter Other (explain) Clinically unable to determine (explain) Thank you, Daisy Duenas RN Use of terms such as suspected, likely, concern for, or probable (associated with a specific diagnosi s that is being evaluated, monitored, or treated as if it exists) are acceptable and can be coded in the inpatient se tting, when documented at the time of discharge. Please use your independent medical judgment in providing your response. THIS QUERY IS PART OF THE PERMANENT MEDICAL RECORD
--- NOTE | 2023-05-21 14:23 | HO.PM.IMPN ---
Subjective Subjective Date of Service: 05/21/23 Interval History: Seen and evaluated more alert and interactive tested positive for C.Diff Urine culture is negative Review of Systems Review of Systems: Yes all other systems are reviewed and are negative Physical Exam Vital Signs: Vital Signs: Last Vital Signs Temp 97.2 F 05/21/23 11:58 Pulse 94 05/21/23 11:58 Resp 17 05/21/23 11:58 BP 109/54 L 05/21/23 11:58 Pulse Ox 98 05/21/23 11:58 O2 Del Method Nasal Cannula 05/21/23 11:58 O2 Flow Rate 2 05/21/23 11:58 BMI result Body Mass Index 35.5 Const: Other: Constitutional : Awake with stimulation, interactive with sounds and bed movements, mildly distressed Neck : Normal inspection, Supple Cardiovascular : RRR, no JVP, no lower extremity edema Respiratory : good bilateral air entry, no crackles, wheezes or rhonchi, On O2 supplement Gastrointestinal: soft, lax, Normal bowel sounds, Non tender, tube feed in place with no surrounding erythema or drainage Skin : Warm, Dry Neurological : unable to assess orientation, alert, moving all extremities Objective Data Active Medications Acetaminophen (Acetaminophen Child Oral Liq 160 Mg/5 Ml Ud Cup) 960 mg G-TUBE TID [facility] Last Admin: 05/21/23 09:26 Dose: 960 mg Documented By: SHIVA Apixaban (Apixaban 2.5 Mg Tablet) 2.5 mg G-TUBE BID [facility] Last Admin: 05/21/23 09:27 Dose: 2.5 mg Documented By: SHIVA Ascorbic Acid (Ascorbic Acid 500 Mg Tablet) 1,000 mg G-TUBE BID [facility] Last Admin: 05/21/23 09:27 Dose: 1,000 mg Documented By: SHIVA Atorvastatin Calcium (Atorvastatin Calcium 10 Mg Tablet) 10 mg G-TUBE DAILY [facility] Last Admin: 05/21/23 09:27 Dose: 10 mg Documented By: SHIVA Bisacodyl (Bisacodyl 10 Mg Supp.Rect) 10 mg GA DAILY PRN PRN Reason: Constipation Erythromycin (Erythromycin Base 0.5% Oph Oin 1 Gm Tube) 1 cm EYE-BOTH TID [facility] Last Admin: 05/21/23 09:27 Dose: 1 cm Documented By: SHIVA Ferrous Sulfate (Ferrous Sulfate 300 Mg/5 Ml Liquid) 352 mg PO DAILY [facility] Last Admin: 05/21/23 09:27 Dose: 352 mg Documented By: SHIVA Dextrose (D5w) 1,000 mls @ 125 mls/hr IVCONT .Q8H [facility] Last Admin: 05/21/23 09:56 Dose: 125 mls/hr Documented By: SHIVA Lactulose (Lactulose 20 Gm/30 Ml Solution) 20 gm G-TUBE BID [facility] Last Admin: 05/21/23 09:28 Dose: Not Given Documented By: SHIVA Non-Admin Reason: multi BM Levothyroxine Sodium (Levothyroxine Sodium 100 Mcg Tablet) 100 mcg G-TUBE DAILY@0600 [facility] Last Admin: 05/21/23 05:59 Dose: 100 mcg Documented By: AMPARO Melatonin (Melatonin 3 Mg Tablet) 6 mg G-TUBE BEDTIME PRN PRN Reason: Insomnia Mirtazapine (Mirtazapine 7.5 Mg Tablet) 7.5 mg G-TUBE DAILY [facility] Last Admin: 05/21/23 09:27 Dose: 7.5 mg Documented By: SHIVA Morphine Sulfate (Morphine Sulfate 4 Mg/Ml Cartridge) 2 mg IVPUSH Q6H PRN; Protocol PRN Reason: Pain, Severe (Pain Scale 7-10) Ondansetron HCl (Ondansetron Hcl 4 Mg/2 Ml Vial) 4 mg IVPUSH Q8H PRN PRN Reason: Nausea and Vomiting Quetiapine Fumarate (Quetiapine Fumarate 50 Mg Tablet) 50 mg G-TUBE TID [facility] Last Admin: 05/21/23 09:27 Dose: 50 mg Documented By: SHIVA Sodium Chloride (0.9 % Sodium Chloride Flush 3 Ml Syringe) 3 ml IVFLUSH QSHIFT [facility] Last Admin: 05/21/23 09:28 Dose: 3 ml Documented By: SHIVA Trazodone HCl (Trazodone Hcl 100 Mg Tablet) 200 mg G-TUBE BID [facility] Last Admin: 05/21/23 09:27 Dose: 200 mg Documented By: SHIVA Valproic Acid (Valproic Acid (As Sodium Salt) 250 Mg/5 Ml Solution) 1,000 mg G-TUBE BID [facility] Last Admin: 05/21/23 09:26 Dose: 1,000 mg Documented By: SHIVA Vancomycin HCl (Vancomycin Hcl Oral Solution 125 Mg/5 Ml Soln.Recon) 125 mg PO Q6H [facility] Last Admin: 05/21/23 09:27 Dose: 125 mg Documented By: SHIVA Labs 05/21/23 07:03 05/21/23 11:20 Labs: Laboratory Results - last 24 hr 05/20/23 05/21/23 05/21/23 14:25 07:03 11:20 MCV 102.2 H MCH 28.5 MCHC 27.9 L RDW 18.3 H Plt Count 367 MPV 10.7 Immature Gran % (Auto) 2.7 H Neut % (Auto) 73.8 H Lymph % (Auto) 13.0 L [place] % (Auto) 8.6 Eos % (Auto) 1.5 Baso % (Auto) 0.4 Lymph # (Auto) 1.6 [place] # (Auto) 1.0 Eos # (Auto) 0.2 Baso # (Auto) 0.1 Abs Immat Gran (auto) 0.32 H Absolute Neuts (auto) 8.9 H Absolute Nucleated RBC 0.060 H Nucleated RBC % (auto) 0.5 H Anion Gap 13 14 Estim Creat Clear Calc 45.1 44.3 Estimated GFR 35 34 Random Glucose 99 122 H Calcium 9.7 D 9.6 Total Bilirubin 0.1 AST 14 ALT 5 Alkaline Phosphatase 55 Total Protein 6.6 Albumin 2.6 L PTH Intact 91.8 H C. difficile Tox B Gene POSITIVE A* C. difficile Toxin A&B Positive A* C. difficile Interpret SEE NOTE Microbiology Microbiology Results: Microbiology 05/19/23 Unknown Urine Culture - Final Urine Catheterized - Cantu Catheter 05/19/23 23:49 Gram Stain - Final Foot Left Routine Culture - Preliminary Culture in progress. 05/19/23 23:08 Blood Culture - Preliminary Blood - Venous No growth after 24 hours. 05/19/23 23:08 Blood Culture - Preliminary Blood - Venous No growth after 24 hours. Assessment and Plan (1) Sepsis: Status: Acute (2) Urinary tract infection with fever: Status: Acute (3) Hypercalcemia: Status: Acute (4) Acute kidney injury: Status: Acute (5) Hydronephrosis: Status: Acute (6) Clostridium difficile colitis: Status: Acute Plan 63 year old severely demented white female with PMH of dysphagia (s/op G-tube placement), schizoaffective disorder, severe intellectual disability, urinary retention (now with a chronic indwelling Cantu catheter), C. diff colitis, hypertension, hyperlipidemia, hypothyroidism, Vitamin D Deficiency, PTSD, anxiety, PVD, GERD, bullous pemphigoid, pressure ulcers, DVT of righ upper extremity (on Eliquis), and fecal incontinence here with: # Sepsis 2/2 C.Diff infection Pending cultures IVF Vancomycin 125 q6 # Bacteruria Cultures negative Likely colony from chronic Cantu catheter, cantu changed DC Ceftriaxone # Hydronephrosis Seen on CT scan of abdomen Urology eval # Acute hypernatremia Na 147 start D5W and follow BMP # CHI Cr of 1.5 from 0.8 likely prerenal from dehydration, possible obstruction Urology following for possible need of stent placement # Dysphagia Start tube feeds all meds per G-tube # H/O DVT resume Eliquis # Hypothyroidism resume Levothyroxine # Hyperlipidemia resume Atorvastatin DVT: SC Lovenox CODE STATUS: Full code Admission for at least 2 midnights for management of urosepsis with IV antibiotics Quality Stroke Does the patient have a stroke diagnosis?: No VTE Prior VTE?: Yes VTE Risk Level:: Medical - moderate - high VTE Device Contraindication: Treatment Not Indicated VTE Drug Contraindication: N/A - Med Ordered
[2023-05-21 15:26] VITALS: BP 114/62; PULSE 96; RESP 16; TEMP 37.2; O2SAT 96
[2023-05-21 19:46] VITALS: BP 98/54; PULSE 94; RESP 20; TEMP 37.1; O2SAT 94
[2023-05-21 23:49] VITALS: BP 128/57; PULSE 90; RESP 17; TEMP 36.6; O2SAT 100
[2023-05-22] VITALS (9 sets, daily range): BP systolic 96–113; BP diastolic 50–78; PULSE 78–98; RESP 16–20; TEMP 36–36.7; O2SAT 96–100
[2023-05-22] MEDS: Acetaminophen Child Oral Liq 160 MG/5 ML UD Cup 960 MG G-TUBE ×3 (02:27→14:59)
[2023-05-22] MEDS: vancomycin HCL Oral Solution 125 MG/5 ML SOLN.RECON PO ×4 (02:28→20:29)
[2023-05-22] MEDS: Dextrose 5 % 1,000 ML 125 ML IVCONT (02:29)
[2023-05-22] MEDS: Levothyroxine Sodium 100 MCG TABLET G-TUBE (06:11)
[2023-05-22 06:57] LABS: Hematocrit 24.9 % (37.0-47.0); Mean Corpuscular HGB Conc 28.1 g/dl (31.0-35.0); Mean Corpuscular Hemoglobin 27.8 pg (27.0-33.0); Mean Corpuscular Volume 98.8 fL (80.0-98.0); Mean Platelet Volume 10.3 fL (9.4-12.3); NRBC Pct Auto 0.4 /100WBC (0.0-0.2); Platelet Count 349 X10*3/uL (160-400); Red Blood Count 2.52 X10*6/uL (4.20-5.50); White Blood Count 9.4 X10*3/uL (4.8-10.8)
[2023-05-22 07:14] LABS: Anion Gap 10 (12-20); Blood Urea Nitrogen 32 mg/dL (9-16); Calcium 9.1 mg/dL (8.4-10.2); Carbon Dioxide 27 mmol/L (22-29); Chloride 107 mmol/L (96-108); Creatinine Clr Calc Pharmacy 51.3; Estimated Glomerular Filt Rate 41; Glucose Random 118 mg/dL (60-115); Sodium 140 mmol/L (135-145)
[2023-05-22] MEDS: 0.9 % Sodium Chloride Flush 3 ML SYRINGE IVFLUSH ×2 (08:42→16:43)
[2023-05-22] MEDS: Ferrous Sulfate 300 MG/5 ML LIQUID 352 MG PO (08:42)
[2023-05-22] MEDS: Atorvastatin Calcium 10 MG TABLET G-TUBE (08:43)
[2023-05-22] MEDS: Ascorbic Acid 500 MG TABLET 1000 MG G-TUBE ×2 (08:43→20:29)
[2023-05-22] MEDS: Erythromycin Base 0.5% Oph Oin 1 GM TUBE 1 CM EYE-BOTH ×3 (08:44→20:30)
[2023-05-22] MEDS: Mirtazapine 7.5 MG TABLET G-TUBE (08:44)
[2023-05-22] MEDS: QUEtiapine Fumarate 50 MG TABLET G-TUBE ×3 (08:44→20:29)
[2023-05-22] MEDS: traZODone HCL 100 MG TABLET 200 MG G-TUBE ×2 (08:44→20:29)
[2023-05-22] MEDS: Apixaban 2.5 MG TABLET G-TUBE (08:44)
--- NOTE | 2023-05-22 09:56 | HO.PM.IMPN ---
Subjective Subjective Date of Service: 05/22/23 Interval History: Seen and evaluated alert and confused tested positive for C.Diff Urine culture is negative Review of Systems Review of Systems: Yes Unobtainable due to mental status Physical Exam Vital Signs: Vital Signs: Last Vital Signs Temp 96.8 F 05/22/23 07:51 Pulse 84 05/22/23 07:51 Resp 20 05/22/23 07:51 BP 108/51 L 05/22/23 07:51 Pulse Ox 96 05/22/23 07:51 O2 Del Method Nasal Cannula 05/22/23 07:51 O2 Flow Rate 2 05/22/23 07:51 BMI result Body Mass Index 35.5 Const: Other: Constitutional : Awake with stimulation, interactive with sounds and bed movements, mildly distressed Neck : Normal inspection, Supple Cardiovascular : RRR, no JVP, no lower extremity edema Respiratory : good bilateral air entry, no crackles, wheezes or rhonchi, On O2 supplement Gastrointestinal: soft, lax, Normal bowel sounds, Non tender, tube feed in place with no surrounding erythema or drainage Skin : Warm, Dry Neurological : unable to assess orientation, alert, moving all extremities Objective Data Active Medications Acetaminophen (Acetaminophen Child Oral Liq 160 Mg/5 Ml Ud Cup) 960 mg G-TUBE TID [facility] Last Admin: 05/22/23 08:42 Dose: 960 mg Documented By: PARUL Apixaban (Apixaban 2.5 Mg Tablet) 2.5 mg G-TUBE BID [facility] Last Admin: 05/22/23 08:44 Dose: 2.5 mg Documented By: PARUL Ascorbic Acid (Ascorbic Acid 500 Mg Tablet) 1,000 mg G-TUBE BID [facility] Last Admin: 05/22/23 08:43 Dose: 1,000 mg Documented By: PARUL Atorvastatin Calcium (Atorvastatin Calcium 10 Mg Tablet) 10 mg G-TUBE DAILY [facility] Last Admin: 05/22/23 08:43 Dose: 10 mg Documented By: PARUL Bisacodyl (Bisacodyl 10 Mg Supp.Rect) 10 mg [place] DAILY PRN PRN Reason: Constipation Erythromycin (Erythromycin Base 0.5% Oph Oin 1 Gm Tube) 1 cm EYE-BOTH TID [facility] Last Admin: 05/22/23 08:44 Dose: 1 cm Documented By: PARUL Ferrous Sulfate (Ferrous Sulfate 300 Mg/5 Ml Liquid) 352 mg PO DAILY [facility] Last Admin: 05/22/23 08:42 Dose: 352 mg Documented By: PARUL Lactulose (Lactulose 20 Gm/30 Ml Solution) 20 gm G-TUBE BID [facility] Last Admin: 05/21/23 09:28 Dose: Not Given Documented By: SHIVA Non-Admin Reason: multi BM Levothyroxine Sodium (Levothyroxine Sodium 100 Mcg Tablet) 100 mcg G-TUBE DAILY@0600 [facility] Last Admin: 05/22/23 06:11 Dose: 100 mcg Documented By: ANTONIA Melatonin (Melatonin 3 Mg Tablet) 6 mg G-TUBE BEDTIME PRN PRN Reason: Insomnia Mirtazapine (Mirtazapine 7.5 Mg Tablet) 7.5 mg G-TUBE DAILY [facility] Last Admin: 05/22/23 08:44 Dose: 7.5 mg Documented By: PARUL Morphine Sulfate (Morphine Sulfate 4 Mg/Ml Cartridge) 2 mg IVPUSH Q6H PRN; Protocol PRN Reason: Pain, Severe (Pain Scale 7-10) Ondansetron HCl (Ondansetron Hcl 4 Mg/2 Ml Vial) 4 mg IVPUSH Q8H PRN PRN Reason: Nausea and Vomiting Quetiapine Fumarate (Quetiapine Fumarate 50 Mg Tablet) 50 mg G-TUBE TID [facility] Last Admin: 05/22/23 08:44 Dose: 50 mg Documented By: PARUL Sodium Chloride (0.9 % Sodium Chloride Flush 3 Ml Syringe) 3 ml IVFLUSH QSHIFT [facility] Last Admin: 05/22/23 08:42 Dose: 3 ml Documented By: PARUL Trazodone HCl (Trazodone Hcl 100 Mg Tablet) 200 mg G-TUBE BID [facility] Last Admin: 05/22/23 08:44 Dose: 200 mg Documented By: PARUL Valproic Acid (Valproic Acid (As Sodium Salt) 250 Mg/5 Ml Solution) 1,000 mg G-TUBE BID [facility] Last Admin: 05/22/23 08:42 Dose: 1,000 mg Documented By: PARUL Vancomycin HCl (Vancomycin Hcl Oral Solution 125 Mg/5 Ml Soln.Recon) 125 mg PO Q6H [facility] Last Admin: 05/22/23 08:42 Dose: 125 mg Documented By: PARUL Labs 05/22/23 06:11 05/22/23 06:11 Labs: Laboratory Results - last 24 hr 05/21/23 05/22/23 11:20 06:11 MCV 98.8 H MCH 27.8 MCHC 28.1 L RDW 18.0 H Plt Count 349 MPV 10.3 Absolute Nucleated RBC 0.040 H Nucleated RBC % (auto) 0.4 H Anion Gap 14 10 L Estim Creat Clear Calc 44.3 51.3 Estimated GFR 34 41 Random Glucose 122 H 118 H Calcium 9.6 9.1 Microbiology Microbiology Results: Microbiology 05/19/23 23:49 Gram Stain - Final Foot Left Routine Culture - Preliminary Staphylococcus aureus Corynebacterium species 05/19/23 23:08 Blood Culture - Preliminary Blood - Venous No growth after 48 hours. 05/19/23 23:08 Blood Culture - Preliminary Blood - Venous No growth after 48 hours. 05/19/23 Unknown Urine Culture - Final Urine Catheterized - Cantu Catheter Assessment and Plan (1) Clostridium difficile colitis: Status: Acute (2) Hydronephrosis: Status: Acute (3) Acute kidney injury: Status: Acute (4) Sepsis: Status: Acute Plan 63 year old severely demented white female with PMH of dysphagia (s/op G-tube placement), schizoaffective disorder, severe intellectual disability, urinary retention (now with a chronic indwelling Cantu catheter), C. diff colitis, hypertension, hyperlipidemia, hypothyroidism, Vitamin D Deficiency, PTSD, anxiety, PVD, GERD, bullous pemphigoid, pressure ulcers, DVT of righ upper extremity (on Eliquis), and fecal incontinence here with: # Sepsis 2/2 C.Diff infection Pending cultures IVF Vancomycin 125 q6 # Acute on chronic anemia Hb dropped to 7 No clear source of bleeding check Occult Give a unit of PRBCs # Bacteruria Cultures negative Likely colony from chronic Cantu catheter, cantu changed DC Ceftriaxone # Hydronephrosis Seen on CT scan of abdomen Urology eval # Acute hypernatremia Na 147 start D5W and follow BMP # CHI Cr improving, likely prerenal from dehydration, possible obstruction Urology following for possible need of stent placement # Dysphagia Start tube feeds all meds per G-tube # H/O DVT resume Eliquis # Hypothyroidism resume Levothyroxine # Hyperlipidemia resume Atorvastatin DVT: SC Lovenox CODE STATUS: Full code Will need overnight hospital stay for management of sepsis with IV antibiotics, blood trnasfusion amd urology procedure Quality Stroke Does the patient have a stroke diagnosis?: No VTE Prior VTE?: Yes VTE Risk Level:: Medical - moderate - high VTE Device Contraindication: Treatment Not Indicated VTE Drug Contraindication: N/A - Med Ordered
[2023-05-22 13:46] LABS: OBS Int Ctl Valid YES; OBS1 NEGATIVE (NEGATIVE)
[2023-05-22 14:31] LABS: Immature Retic Fraction 26.9 % (3.0-15.9); Reticulocyte Percent 4.9 % (0.5-1.8); Reticulocytes Absolute 0.119 X10*6/uL (0.026-0.095)
[2023-05-22 20:56] LABS: Alanine Aminotransferase < 5 U/L (0-31); Albumin Level 2.4 g/dL (3.5-5.0); Alkaline Phosphatase 54 U/L (39-117); Aspartate Amino Transferase 14 U/L (5-31); Bilirubin Direct < 0.2 mg/dL (0.0-0.5); Bilirubin Total 0.1 mg/dL (0.0-1.0); Lactate Dehydrogenase 211 U/L (122-220); Total Protein 6.1 g/dL (6.5-8.0)
[2023-05-23] MEDS: 0.9 % Sodium Chloride Flush 3 ML SYRINGE IVFLUSH ×4 (00:21→20:19)
[2023-05-23] MEDS: vancomycin HCL Oral Solution 125 MG/5 ML SOLN.RECON PO ×4 (03:16→20:18)
[2023-05-23 03:26] VITALS: BP 170/64; PULSE 78; RESP 18; TEMP 36.6; O2SAT 97
[2023-05-23 05:14] VITALS: BMI 35.8
[2023-05-23] MEDS: Levothyroxine Sodium 100 MCG TABLET G-TUBE (06:43)
--- NOTE | 2023-05-23 07:00 | PC.NURSE ---
Assumed care of patient at this time.
[2023-05-23 07:15] VITALS: BP 137/81; PULSE 96; RESP 20; TEMP 36.3; O2SAT 96
[2023-05-23 07:46] LABS: Hematocrit 31.1 % (37.0-47.0); Hemoglobin 8.7 g/dl (12.0-16.0); Mean Corpuscular Hemoglobin 27.8 pg (27.0-33.0); Mean Corpuscular Volume 99.4 fL (80.0-98.0); Mean Platelet Volume 10.4 fL (9.4-12.3); NRBC Pct Auto 0.6 /100WBC (0.0-0.2); Platelet Count 386 X10*3/uL (160-400); Red Blood Count 3.13 X10*6/uL (4.20-5.50); Red Cell Distribution Width 18.4 % (11.0-16.0); White Blood Count 8.9 X10*3/uL (4.8-10.8)
[2023-05-23 08:00] LABS: Anion Gap 13 (12-20); Blood Urea Nitrogen 32 mg/dL (9-16); Calcium 9.6 mg/dL (8.4-10.2); Carbon Dioxide 28 mmol/L (22-29); Chloride 106 mmol/L (96-108); Creatinine Clr Calc Pharmacy 57.5; Estimated Glomerular Filt Rate 46; Glucose Random 95 mg/dL (60-115); Potassium 4.5 mmol/L (3.3-5.1); Sodium 142 mmol/L (135-145)
[2023-05-23 10:37] LABS: Haptoglobin 177 MG/DL ((30-200))
[2023-05-23] MEDS: Acetaminophen Oral Liquid 650 MG/20.3 ML SOLUTION 960 MG G-TUBE ×3 (10:55→20:18)
[2023-05-23] MEDS: Ferrous Sulfate 300 MG/5 ML LIQUID 352 MG PO (10:57)
[2023-05-23] MEDS: Atorvastatin Calcium 10 MG TABLET G-TUBE (10:58)
[2023-05-23] MEDS: QUEtiapine Fumarate 50 MG TABLET G-TUBE ×3 (10:58→20:18)
[2023-05-23] MEDS: Mirtazapine 7.5 MG TABLET G-TUBE (10:58)
[2023-05-23] MEDS: Ascorbic Acid 500 MG TABLET 1000 MG G-TUBE ×2 (10:58→20:18)
[2023-05-23] MEDS: traZODone HCL 100 MG TABLET 200 MG G-TUBE ×2 (10:58→20:18)
[2023-05-23] MEDS: Erythromycin Base 0.5% Oph Oin 1 GM TUBE 1 CM EYE-BOTH ×3 (11:01→20:18)
[2023-05-23 11:04] VITALS: BP 112/73; PULSE 94; RESP 20; TEMP 36.8; O2SAT 95
--- NOTE | 2023-05-23 11:14 | MHC.CLN ---
F/U PT WITH INCREASED NUTRITION RISK R/T PRESSURE INJURIES PT IS DEPENDENT ON TF FOR NUTRITION SUPPORT PT RECEIVING OSMOLITE 1.5 AT MAX GOAL RATE 60ML/HR WITH 240ML FREE WATER FLUSHES Q 6 HRS PROVIDES 2160KCALS (30KCALS/KG), 90G PROTEIN (1.25G/KG), 2057ML TOTAL WATER FROM FORMULA AND FLUSHES (28.6ML/KG) MONITOR TOLERANCE, RESIDUALS AND LYTES
--- NOTE | 2023-05-23 11:23 | HO.PM.IMPN ---
Subjective Subjective Date of Service: 05/23/23 Interval History: Seen and evaluated alert and confused 1 BM overnight, no diarrhea Cr improving back to normal Urine culture is negative Review of Systems Review of Systems: Yes Unobtainable due to mental status Physical Exam Vital Signs: Vital Signs: Last Vital Signs Temp 98.2 F 05/23/23 11:04 Pulse 94 05/23/23 11:04 Resp 20 05/23/23 11:04 BP 112/73 05/23/23 11:04 Pulse Ox 95 05/23/23 11:04 O2 Del Method Room Air 05/23/23 11:04 O2 Flow Rate 2 05/23/23 07:15 BMI result Body Mass Index 35.8 Const: Other: Constitutional : alert, interactive with sounds and bed movements, answers with 1 word sometimes, mildly distressed Neck : Normal inspection, Supple Cardiovascular : RRR, no JVP, no lower extremity edema Respiratory : good bilateral air entry, no crackles, wheezes or rhonchi, On O2 supplement Gastrointestinal: soft, lax, Normal bowel sounds, Non tender, tube feed in place with no surrounding erythema or drainage Skin : Warm, Dry Neurological : unable to assess orientation, alert, moving all extremities Objective Data Active Medications Acetaminophen (Acetaminophen Oral Liquid 650 Mg/20.3 Ml Solution) 960 mg G-TUBE TID [facility] Last Admin: 05/23/23 10:55 Dose: 960 mg Documented By: VIKA Apixaban (Apixaban 2.5 Mg Tablet) 2.5 mg G-TUBE BID [facility] Last Admin: 05/22/23 08:44 Dose: 2.5 mg Documented By: PARUL Ascorbic Acid (Ascorbic Acid 500 Mg Tablet) 1,000 mg G-TUBE BID [facility] Last Admin: 05/23/23 10:58 Dose: 1,000 mg Documented By: VIKA Atorvastatin Calcium (Atorvastatin Calcium 10 Mg Tablet) 10 mg G-TUBE DAILY [facility] Last Admin: 05/23/23 10:58 Dose: 10 mg Documented By: VIKA Bisacodyl (Bisacodyl 10 Mg Supp.Rect) 10 mg [place] DAILY PRN PRN Reason: Constipation Erythromycin (Erythromycin Base 0.5% Oph Oin 1 Gm Tube) 1 cm EYE-BOTH TID [facility] Last Admin: 05/23/23 11:01 Dose: 1 cm Documented By: VIKA Ferrous Sulfate (Ferrous Sulfate 300 Mg/5 Ml Liquid) 352 mg PO DAILY [facility] Last Admin: 05/23/23 10:57 Dose: 352 mg Documented By: VIKA Lactulose (Lactulose 20 Gm/30 Ml Solution) 20 gm G-TUBE BID [facility] Last Admin: 05/21/23 09:28 Dose: Not Given Documented By: ANA MARIANLYM Non-Admin Reason: multi BM Levothyroxine Sodium (Levothyroxine Sodium 100 Mcg Tablet) 100 mcg G-TUBE DAILY@0600 [facility] Last Admin: 05/23/23 06:43 Dose: 100 mcg Documented By: ARMSTRShanae Melatonin (Melatonin 3 Mg Tablet) 6 mg G-TUBE BEDTIME PRN PRN Reason: Insomnia Mirtazapine (Mirtazapine 7.5 Mg Tablet) 7.5 mg G-TUBE DAILY [facility] Last Admin: 05/23/23 10:58 Dose: 7.5 mg Documented By: VIKA Morphine Sulfate (Morphine Sulfate 4 Mg/Ml Cartridge) 2 mg IVPUSH Q6H PRN; Protocol PRN Reason: Pain, Severe (Pain Scale 7-10) Ondansetron HCl (Ondansetron Hcl 4 Mg/2 Ml Vial) 4 mg IVPUSH Q8H PRN PRN Reason: Nausea and Vomiting Quetiapine Fumarate (Quetiapine Fumarate 50 Mg Tablet) 50 mg G-TUBE TID [facility] Last Admin: 05/23/23 10:58 Dose: 50 mg Documented By: VIKA Sodium Chloride (0.9 % Sodium Chloride Flush 3 Ml Syringe) 3 ml IVFLUSH QSHIFT [facility] Last Admin: 05/23/23 10:59 Dose: 3 ml Documented By: VIKA Trazodone HCl (Trazodone Hcl 100 Mg Tablet) 200 mg G-TUBE BID [facility] Last Admin: 05/23/23 10:58 Dose: 200 mg Documented By: VIKA Valproic Acid (Valproic Acid (As Sodium Salt) 250 Mg/5 Ml Solution) 1,000 mg G-TUBE BID [facility] Last Admin: 05/23/23 10:56 Dose: 1,000 mg Documented By: VIKA Vancomycin HCl (Vancomycin Hcl Oral Solution 125 Mg/5 Ml Soln.Recon) 125 mg PO Q6H [facility] Last Admin: 05/23/23 10:59 Dose: 125 mg Documented By: VIKA Labs 05/23/23 07:01 05/23/23 07:01 Labs: Laboratory Results - last 24 hr 05/22/23 05/22/23 05/22/23 06:11 10:19 13:30 MCV MCH MCHC RDW Plt Count MPV Absolute Nucleated RBC Nucleated RBC % (auto) Smear Path Review SEE NOTE Absolute Retic 0.119 H Percent Retic 4.9 H Immature Retic Fraction 26.9 H Retic Hgb Equivalent 20.0 L Haptoglobin Anion Gap Estim Creat Clear Calc Estimated GFR Random Glucose Calcium Total Bilirubin 0.1 Direct Bilirubin < 0.2 AST 14 ALT < 5 Alkaline Phosphatase 54 Lactate Dehydrogenase 211 Total Protein 6.1 L Albumin 2.4 L Stool Occult Blood NEGATIVE Blood Type A Positive Antibody Screen NEGATIVE SASKIA, Polyspecific NEGATIVE Positive SASKIA Work-up TNP Crossmatch See Detail 05/23/23 07:01 MCV 99.4 H MCH 27.8 MCHC 28.0 L RDW 18.4 H Plt Count 386 MPV 10.4 Absolute Nucleated RBC 0.050 H Nucleated RBC % (auto) 0.6 H Smear Path Review Absolute Retic Percent Retic Immature Retic Fraction Retic Hgb Equivalent Haptoglobin 177 Anion Gap 13 Estim Creat Clear Calc 57.5 Estimated GFR 46 Random Glucose 95 Calcium 9.6 Total Bilirubin Direct Bilirubin AST ALT Alkaline Phosphatase Lactate Dehydrogenase Total Protein Albumin Stool Occult Blood Blood Type Antibody Screen SASKIA, Polyspecific Positive SASKIA Work-up Crossmatch Microbiology Microbiology Results: Microbiology 05/19/23 23:49 Gram Stain - Final Foot Left Routine Culture - Final Staphylococcus aureus Corynebacterium species Assessment and Plan (1) Clostridium difficile colitis: Status: Acute (2) Hydronephrosis: Status: Acute (3) Acute kidney injury: Status: Acute (4) Sepsis: Status: Acute (5) Dehydration: Status: Acute Plan 63 year old severely demented white female with PMH of dysphagia (s/op G-tube placement), schizoaffective disorder, severe intellectual disability, urinary retention (now with a chronic indwelling Cantu catheter), C. diff colitis, hypertension, hyperlipidemia, hypothyroidism, Vitamin D Deficiency, PTSD, anxiety, PVD, GERD, bullous pemphigoid, pressure ulcers, DVT of righ upper extremity (on Eliquis), and fecal incontinence here with: # Sepsis 2/2 C.Diff infection No more diarrhea Negative blood cultures DC IVF Vancomycin 125 q6 # Acute on chronic anemia Hb improved to 8.6 after 1 unit transfusion No clear source of bleeding Negative Occult Fllow H&H # Bacteruria Cultures negative Likely colony from chronic Cantu catheter, cantu changed DC Ceftriaxone # Hydronephrosis Seen on CT scan of abdomen Urology eval # Acute hypernatremia resolved follow BMP # CHI Cr improving, 1.3 likely prerenal from dehydration, possible obstruction Urology following for possible need of stent placement # Left foot wound Cx growing Staph and Corynebacterium will get ID eval for medications advice # Dysphagia Start tube feeds all meds per G-tube # H/O DVT resume Eliquis # Hypothyroidism resume Levothyroxine # Hyperlipidemia resume Atorvastatin DVT: SC Lovenox CODE STATUS: Full code Will need overnight hospital stay for management of sepsis with IV antibiotics, blood trnasfusion amd urology procedure Quality Stroke Does the patient have a stroke diagnosis?: No VTE Prior VTE?: Yes VTE Risk Level:: Medical - moderate - high VTE Device Contraindication: Treatment Not Indicated VTE Drug Contraindication: N/A - Med Ordered
--- NOTE | 2023-05-23 15:10 | HO.WOUND ---
Wound Consult: Initial 63yr old female admitted to [facility] on?05/20/23 05:53 - See progress notes and H&P for detailed history. Wound consult placed for bilateral heels, bilateral ischium and coccyx wound. Coccyx Etiology: Unstageable Pressure Injury POA Wound Bed: moist adherent yellow slough marbled pink wound bed Drainage / Odor: scant serosang - no odor Edges: unattached ? Alycia wound: ? MASD (Moisture associated Skin Damage - Incontinence Associated Dermatitis) No Induration, Fluctuance or Warmth noted Pain: difficult to assess Goals of Treatment: ? Moist wound healing - allow for autolytic debridement with Triad Right Ischium Etiology: Stage 4 Pressure Injury POA Wound Bed: moist red pink wound bed Drainage / Odor: moderate serosang - no odor Edges: unattached ? Alycia wound: ? MASD (Moisture associated Skin Damage - Incontinence Associated Dermatitis) No Induration, Fluctuance or Warmth noted - slow to kate periwound Pain: difficult to assess Goals of Treatment: ? Moisture management with Alginate packing Left Ischium - Resurfaced suspected stage 4 pressure injury based on healing pattern and depth Left heel Etiology: Unstageable Pressure Injury POA Wound Bed: marbles wound bed with moist red pink tissue and adherent thick yellow slough Drainage / Odor: moderate kinsey yellow - no odor Edges: unattached ? Alycia wound: ? Red pink blanchable tissue No Induration, Fluctuance or Warmth noted Pain: difficult to assess Goals of Treatment: ? Moisture management with Alginate packing - heel boot applied Right Heel Etiology: Resurfacing suspected stage 4 Pressure Injury POA 9suspect stage 4 based on healing pattern and depth Wound Bed: scattered areas of scabbed red tissue Drainage / Odor: no drainage no odor Edges: attached ? Alycia wound: ? [place] blanchable tissue No Induration, Fluctuance or Warmth noted Pain: difficult to assess Goals of Treatment: ?Foam dressing to aid in off loading and protect from friction - heel boot applied Right Plantar Etiology: Deep Tissue Injury POA Wound Bed: Maroon base serous filled bulla - intact Drainage / Odor: None - no odor Edges: attached ? Alycia wound: ?intact No Induration, Fluctuance or Warmth noted Pain: difficult to assess Goals of Treatment: ? barrier wipe and protect from friction and pressure Recommendations: 1. Turn and Reposition every 2 hours and as needed for patient comfort. 2. Off Load all bony prominences with use of pillows and heel boots if needed.? Apply Preventative foams where needed. ? 3. Monitor for incontinence and moisture control, use barrier creams when needed for prevention and treatment. 4. Provide adequate and supplemental nutrition. 5. Order or Continue low air loss mattress. 6. Coccyx, buttocks and Left Ischium - Off Load Pressure - Cleanse with PH balance spray, pat dry. ?Apply thin layer of Triad to wound bed - only pat and dab no scrub and rub when soiling occurs. Reapply thin layer PRN after each episode of incontinence. 7. Right Heel - Off Load Pressure with boots - protect from friction and allow for moist wound healing with foam application. Peel back and assess Q shift and change ever 3 days. 8. Left Heel - Off Load Pressure with boots - Cleanse and irrigate with NS, Pat dry.? Apply barrier wipe to periwound, lightly pack with Durafiber AG, be sure to leave a wick to easy removal.? Cover with Foam dressing.? Change Daily. 9. Right Ischium - Off Load Pressure - Cleanse and irrigate with NS, Pat dry.? Apply barrier to periwound, lightly pack with Durafiber AG, be sure to leave a wick to easy removal.? Cover with Foam dressing.? Change Daily. Re-consult wound care Nurse for wound deterioration or wound changes.
--- NOTE | 2023-05-23 15:32 | MHC.CM.PN ---
EMR reviewed and per MD rounds, pt is not medically cleared for D/C due to sepsis requiring IV antibiotics, blood transfusion and urology procedure. Pt will likely D/C tomorrow returning to [facility] for LTC. CM will continue to follow.
[2023-05-23 16:00] VITALS: BP 111/73; PULSE 78; RESP 16; TEMP 36.8; O2SAT 95
--- NOTE | 2023-05-23 17:05 | W.PM.IDCN ---
History of Present Illness Data of Consult Service Date: 05/23/23 Requesting physician: Dave Shah Primary Care Provider: Ondina Sewell MD HPI Reason for consult: sepsis,temperature 101 and tachycardia 95 She presents from [facility] with fever and lethargy and tachycardia. She has dark colored stool with blood. She has h/o UTI and h/o Cdiff. She has had colonoscopy. Left foot has superficial scab area,culture MSSA. 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 Pulmonary embolism Chronic kidney disease, stage 3 Intellectual disability Schizoaffective disorder Functional capacity: bed bound Family History Family history: reviewed and not pertinent Surgical History Surgical History S/P percutaneous endoscopic gastrostomy (PEG) tube placement Social History Social History Household Members: Unknown / Unable to assess Housing: Longterm Unable to assess alcohol history related to: Unknown Alcohol intake: unknown Comment: does not ambulate Patient Tobacco Use Status: Tobacco use Unknown service: No Current occupational status: disabled Meds Allergies Allergy/AdvReac Type Severity Reaction Status Date / Time aspirin Allergy Unknown Verified 05/20/23 05:48 chlorproethazine Allergy Unknown Verified 05/20/23 05:48 codeine Allergy Unknown Verified 05/20/23 05:48 guaifenesin Allergy Unknown Verified 05/20/23 05:48 Penicillins Allergy Unknown Verified 05/20/23 05:48 phenytoin Allergy Unknown Verified 05/20/23 05:48 potassium [From Potassimin] Allergy Unknown Verified 05/20/23 05:48 Active Medications: Current Medications Acetaminophen (Acetaminophen Oral Liquid 650 Mg/20.3 Ml Solution) 960 mg G-TUBE TID [facility] Last Admin: 12/06/23 14:02 Dose: 960 mg Apixaban (Apixaban 2.5 Mg Tablet) 2.5 mg G-TUBE BID [facility] Last Admin: 05/22/23 08:44 Dose: 2.5 mg Ascorbic Acid (Ascorbic Acid 500 Mg Tablet) 1,000 mg G-TUBE BID [facility] Last Admin: 05/23/23 10:58 Dose: 1,000 mg Atorvastatin Calcium (Atorvastatin Calcium 10 Mg Tablet) 10 mg G-TUBE DAILY [facility] Last Admin: 05/23/23 10:58 Dose: 10 mg Bisacodyl (Bisacodyl 10 Mg Supp.Rect) 10 mg HI DAILY PRN PRN Reason: Constipation Erythromycin (Erythromycin Base 0.5% Oph Oin 1 Gm Tube) 1 cm EYE-BOTH TID [facility] Last Admin: 05/23/23 14:03 Dose: 1 cm Ferrous Sulfate (Ferrous Sulfate 300 Mg/5 Ml Liquid) 352 mg PO DAILY [facility] Last Admin: 05/23/23 10:57 Dose: 352 mg Lactulose (Lactulose 20 Gm/30 Ml Solution) 20 gm G-TUBE BID [facility] Last Admin: 05/21/23 09:28 Dose: Not Given Levothyroxine Sodium (Levothyroxine Sodium 100 Mcg Tablet) 100 mcg G-TUBE DAILY@0600 [facility] Last Admin: 05/23/23 06:43 Dose: 100 mcg Melatonin (Melatonin 3 Mg Tablet) 6 mg G-TUBE BEDTIME PRN PRN Reason: Insomnia Mirtazapine (Mirtazapine 7.5 Mg Tablet) 7.5 mg G-TUBE DAILY [facility] Last Admin: 05/23/23 10:58 Dose: 7.5 mg Morphine Sulfate (Morphine Sulfate 4 Mg/Ml Cartridge) 2 mg IVPUSH Q6H PRN; Protocol PRN Reason: Pain, Severe (Pain Scale 7-10) Ondansetron HCl (Ondansetron Hcl 4 Mg/2 Ml Vial) 4 mg IVPUSH Q8H PRN PRN Reason: Nausea and Vomiting Quetiapine Fumarate (Quetiapine Fumarate 50 Mg Tablet) 50 mg G-TUBE TID [facility] Last Admin: 05/23/23 14:02 Dose: 50 mg Sodium Chloride (0.9 % Sodium Chloride Flush 3 Ml Syringe) 3 ml IVFLUSH QSHIFT [facility] Last Admin: 05/23/23 14:03 Dose: 3 ml Trazodone HCl (Trazodone Hcl 100 Mg Tablet) 200 mg G-TUBE BID [facility] Last Admin: 05/23/23 10:58 Dose: 200 mg Valproic Acid (Valproic Acid (As Sodium Salt) 250 Mg/5 Ml Solution) 1,000 mg G-TUBE BID [facility] Last Admin: 05/23/23 10:56 Dose: 1,000 mg Vancomycin HCl (Vancomycin Hcl Oral Solution 125 Mg/5 Ml Soln.Recon) 125 mg PO Q6H [facility] Last Admin: 05/23/23 14:02 Dose: 125 mg Home Medications Medication Instructions Recorded Confirmed Last Taken Type apixaban 2.5 mg tablet (Eliquis) 2.5 mg feeding tube BID 01/02/22 05/20/23 12/24/22 History atorvastatin 10 mg tablet 10 mg feeding tube DAILY 01/02/22 05/20/23 12/24/22 History lactulose 10 gram/15 mL oral 20 g feeding tube BID 01/02/22 05/20/23 12/24/22 History solution (Enulose) mirtazapine 7.5 mg tablet 7.5 mg feeding tube DAILY 01/02/22 05/20/23 12/24/22 History quetiapine 50 mg tablet 50 mg feeding tube TID 01/02/22 05/20/23 12/24/22 History trazodone 100 mg tablet 200 mg feeding tube BID 01/02/22 05/20/23 12/24/22 History ascorbic acid (vitamin C) 1,000 mg 1,000 mg feeding tube BID 09/29/22 05/20/23 12/24/22 History tablet (Vitamin C) bisacodyl 10 mg rectal suppository 10 mg HI DAILY PRN Constipation 09/29/22 05/20/23 Unknown History tramadol 50 mg tablet 50 mg feeding tube Q12H PRN Pain 09/29/22 05/20/23 12/19/22 History acetaminophen 160 mg/5 mL oral 960 mg feeding tube TID 12/24/22 05/20/23 12/24/22 History elixir amino acids-protein hydrolysate 15 30 ea feeding tube BID 12/24/22 05/20/23 12/24/22 History gram-100 kcal/30 mL oral liquid levothyroxine 100 mcg tablet 100 mcg feeding tube DAILY@0630 12/24/22 05/20/23 12/24/22 History sodium phosphates 19 gram-7 118 ml HI DAILY PRN Constipation 12/24/22 05/20/23 Unknown History gram/118 mL enema (Fleet Enema) valproic acid (as sodium salt) 250 1,000 mg feeding tube BID 12/24/22 05/20/23 12/24/22 History mg/5 mL (5 mL) oral solution erythromycin 5 mg/gram (0.5 %) eye 1 appl ophthalmic (eye) TID 05/20/23 05/20/23 Unknown History ointment ferrous sulfate 220 mg (44 mg 352 mg feeding tube DAILY 05/20/23 05/20/23 Unknown History iron)/5 mL oral solution Physical Exam Vital Signs: Vital Signs: Last Vital Signs Temp 98.2 F 05/23/23 11:04 Pulse 94 05/23/23 11:04 Resp 20 05/23/23 11:04 BP 112/73 05/23/23 11:04 Pulse Ox 95 05/23/23 11:04 O2 Del Method Room Air 05/23/23 11:04 O2 Flow Rate 2 05/23/23 07:15 BMI result Body Mass Index 35.8 Const: General: cooperative HEENT: Head: Yes normal to inspection Face and sinus: Yes normal facial exam Mouth: Normal oral and palatal mucosa present Teeth and gingiva: dentition normal Eyes: General: appearance normal, both eyes and all related structures Pupils: Equal, round and reactive pupils present Resp: Effort & Inspection: normal respiratory effort Cardio: Rate: regular rate Rhythm: regular rhythm GI: Palpation (GI): Soft to palpation and nontender : General: Yes no CVA tenderness Back/Spine/Pelvis: Back: no CVA tenderness Skin: General skin exam: no rashes or lesions noted Neuro: General: moves all extremities Cranial nerves: Yes Equal, round and reactive pupils present Extrem: General: Yes normal to inspection Psych: Other: alert,not verbal Results Labs 05/23/23 07:01 05/23/23 07:01 Labs: Short CBC 05/23/23 Range/Units 07:01 WBC 8.9 (4.8-10.8) X10*3/uL Hgb 8.7 L D (12.0-16.0) g/dl Hct 31.1 L D (37.0-47.0) % Plt Count 386 (160-400) X10*3/uL BMP 05/23/23 07:01 Sodium 142 Potassium 4.5 Chloride 106 Carbon Dioxide 28 BUN 32 H Creatinine 1.18 Calcium 9.6 Liver Function 05/22/23 Range/Units 06:11 Total Bilirubin 0.1 (0.0-1.0) mg/dL Direct Bilirubin < 0.2 (0.0-0.5) mg/dL AST 14 (5-31) U/L ALT < 5 (0-31) U/L Alkaline Phosphatase 54 (39-117) U/L Albumin 2.4 L (3.5-5.0) g/dL Microbiology Microbiology Results: Microbiology 05/19/23 23:49 Foot Left Gram Stain - Final 05/19/23 23:49 Foot Left Routine Culture - Final Staphylococcus aureus Corynebacterium species 05/19/23 23:08 Blood - Venous Blood Culture - Preliminary No growth after 48 hours. 05/19/23 23:08 Blood - Venous Blood Culture - Preliminary No growth after 48 hours. 05/19/23 Unknown Urine Catheterized - Randall Catheter Urine Culture - Final Assessment and Plan (1) Clostridium difficile colitis: Status: Acute (2) Hydronephrosis: Status: Acute (3) Sepsis: Qualifiers: Sepsis type: sepsis due to unspecified organism Sepsis acute organ dysfunction status: with acute organ dysfunction Severe sepsis acute organ dysfunction type: acute renal failure Acute renal failure type: unspecified Severe sepsis shock status: without septic shock Qualified Code(s): A41.9 - Sepsis, unspecified organism; R65.20 - Severe sepsis without septic shock; N17.9 - Acute kidney failure, unspecified Status: Acute Plan There is evidence of Cdiff by testing,may have some chronic colonization. There is no evidence of UTI Would give po Vancomycin 125 mg qid for 10 days ,but since recurrent consider taper Can do virtual visit outpatient. No antibiotic treatment
[2023-05-23 20:00] VITALS: BP 135/79; PULSE 74; RESP 16; TEMP 36.8
[2023-05-23 23:22] VITALS: BP 127/48; PULSE 87; RESP 18; TEMP 36.6; O2SAT 95
[2023-05-24] VITALS (7 sets, daily range): BP systolic 86–157; BP diastolic 46–88; PULSE 68–92; RESP 16–20; TEMP 36–37.1; O2SAT 93–96; BMI 36.0
[2023-05-24] MEDS: vancomycin HCL Oral Solution 125 MG/5 ML SOLN.RECON PO ×4 (02:27→20:26)
[2023-05-24] MEDS: Levothyroxine Sodium 100 MCG TABLET G-TUBE (06:13)
[2023-05-24 07:47] LABS: Hematocrit 33.3 % (37.0-47.0); Hemoglobin 9.5 g/dl (12.0-16.0); Mean Corpuscular HGB Conc 28.5 g/dl (31.0-35.0); Mean Corpuscular Hemoglobin 28.5 pg (27.0-33.0); Mean Platelet Volume 10.1 fL (9.4-12.3); NRBC Pct Auto 0.3 /100WBC (0.0-0.2); Platelet Count 355 X10*3/uL (160-400); Red Blood Count 3.33 X10*6/uL (4.20-5.50); Red Cell Distribution Width 18.2 % (11.0-16.0); White Blood Count 7.7 X10*3/uL (4.8-10.8)
[2023-05-24 07:52] LABS: Anion Gap 13 (12-20); Blood Urea Nitrogen 33 mg/dL (9-16); Calcium 9.9 mg/dL (8.4-10.2); Carbon Dioxide 29 mmol/L (22-29); Chloride 113 mmol/L (96-108); Creatinine Clr Calc Pharmacy 57.3; Estimated Glomerular Filt Rate 46; Glucose Random 99 mg/dL (60-115); Potassium 5.2 mmol/L (3.3-5.1); Sodium 150 mmol/L (135-145)
[2023-05-24] MEDS: Acetaminophen Oral Liquid 650 MG/20.3 ML SOLUTION 960 MG G-TUBE ×3 (10:32→20:40)
[2023-05-24] MEDS: Ferrous Sulfate 300 MG/5 ML LIQUID 352 MG PO (10:36)
[2023-05-24] MEDS: Atorvastatin Calcium 10 MG TABLET G-TUBE (10:39)
[2023-05-24] MEDS: Mirtazapine 7.5 MG TABLET G-TUBE (10:39)
[2023-05-24] MEDS: Ascorbic Acid 500 MG TABLET 1000 MG G-TUBE ×2 (10:39→20:25)
[2023-05-24] MEDS: Erythromycin Base 0.5% Oph Oin 1 GM TUBE 1 CM EYE-BOTH ×3 (10:39→20:25)
[2023-05-24] MEDS: 0.9 % Sodium Chloride Flush 3 ML SYRINGE IVFLUSH (10:39)
[2023-05-24] MEDS: QUEtiapine Fumarate 50 MG TABLET G-TUBE ×3 (10:39→20:25)
[2023-05-24] MEDS: traZODone HCL 100 MG TABLET 200 MG G-TUBE ×2 (10:39→20:25)
--- NOTE | 2023-05-24 13:27 | P.PNIM_ITS ---
Subjective Subjective Date of Service: 05/26/23 Interval History: Seen and evaluated alert and confused no diarrhea reported Cr normal, sodium going up Review of Systems Review of Systems: Yes Unobtainable due to mental status Physical Exam 2 Vital Signs: Vital Signs: Last Vital Signs Temp 96.8 F 05/24/23 11:06 Pulse 92 05/24/23 11:06 Resp 20 05/24/23 11:06 BP 99/48 L 05/24/23 11:06 Pulse Ox 96 05/24/23 11:06 O2 Del Method Room Air 05/24/23 11:06 O2 Flow Rate 2 05/23/23 07:15 BMI result Body Mass Index 36.0 Const: Other: Constitutional : alert, very talkative but doesn't make any sense Neck : Normal inspection, Supple Cardiovascular : RRR, no JVP, no lower extremity edema Respiratory : good bilateral air entry, no crackles, wheezes or rhonchi, On O2 supplement Gastrointestinal: soft, lax, Normal bowel sounds, Non tender, tube feed in place with no surrounding erythema or drainage Skin : Warm, Dry Neurological : unable to assess orientation, alert, moving all extremities Objective Data Active Medications Acetaminophen (Acetaminophen Oral Liquid 650 Mg/20.3 Ml Solution) 960 mg G-TUBE TID [facility] Last Admin: 05/24/23 10:32 Dose: 960 mg Documented By: MARINA Apixaban (Apixaban 2.5 Mg Tablet) 2.5 mg G-TUBE BID [facility] Last Admin: 05/22/23 08:44 Dose: 2.5 mg Documented By: PARUL Ascorbic Acid (Ascorbic Acid 500 Mg Tablet) 1,000 mg G-TUBE BID [facility] Last Admin: 05/24/23 10:39 Dose: 1,000 mg Documented By: MARINA Atorvastatin Calcium (Atorvastatin Calcium 10 Mg Tablet) 10 mg G-TUBE DAILY [facility] Last Admin: 05/24/23 10:39 Dose: 10 mg Documented By: MARINA Bisacodyl (Bisacodyl 10 Mg Supp.Rect) 10 mg ME DAILY PRN PRN Reason: Constipation Erythromycin (Erythromycin Base 0.5% Oph Oin 1 Gm Tube) 1 cm EYE-BOTH TID [facility] Last Admin: 05/24/23 10:39 Dose: 1 cm Documented By: MARINA Ferrous Sulfate (Ferrous Sulfate 300 Mg/5 Ml Liquid) 352 mg PO DAILY [facility] Last Admin: 05/24/23 10:36 Dose: 352 mg Documented By: MARINA Lactulose (Lactulose 20 Gm/30 Ml Solution) 20 gm G-TUBE BID [facility] Last Admin: 05/21/23 09:28 Dose: Not Given Documented By: SHIVA Non-Admin Reason: multi BM Levothyroxine Sodium (Levothyroxine Sodium 100 Mcg Tablet) 100 mcg G-TUBE DAILY@0600 [facility] Last Admin: 05/24/23 06:13 Dose: 100 mcg Documented By: SARMAD Melatonin (Melatonin 3 Mg Tablet) 6 mg G-TUBE BEDTIME PRN PRN Reason: Insomnia Mirtazapine (Mirtazapine 7.5 Mg Tablet) 7.5 mg G-TUBE DAILY [facility] Last Admin: 05/24/23 10:39 Dose: 7.5 mg Documented By: MARINA Morphine Sulfate (Morphine Sulfate 4 Mg/Ml Cartridge) 2 mg IVPUSH Q6H PRN; Protocol PRN Reason: Pain, Severe (Pain Scale 7-10) Ondansetron HCl (Ondansetron Hcl 4 Mg/2 Ml Vial) 4 mg IVPUSH Q8H PRN PRN Reason: Nausea and Vomiting Quetiapine Fumarate (Quetiapine Fumarate 50 Mg Tablet) 50 mg G-TUBE TID [facility] Last Admin: 05/24/23 10:39 Dose: 50 mg Documented By: MARINA Sodium Chloride (0.9 % Sodium Chloride Flush 3 Ml Syringe) 3 ml IVFLUSH QSHIFT [facility] Last Admin: 05/24/23 10:39 Dose: 3 ml Documented By: MARINA Trazodone HCl (Trazodone Hcl 100 Mg Tablet) 200 mg G-TUBE BID [facility] Last Admin: 05/24/23 10:39 Dose: 200 mg Documented By: MARINA Valproic Acid (Valproic Acid (As Sodium Salt) 250 Mg/5 Ml Solution) 1,000 mg G- TUBE BID [facility] Last Admin: 05/24/23 10:31 Dose: 1,000 mg Documented By: MARINA Vancomycin HCl (Vancomycin Hcl Oral Solution 125 Mg/5 Ml Soln.Recon) 125 mg PO Q6H [facility] Last Admin: 05/24/23 10:38 Dose: 125 mg Documented By: MARINA Labs 05/24/23 07:31 05/26/23 08:04 Labs: Laboratory Results - last 24 hr 05/24/23 07:31 MCV 100.0 H MCH 28.5 MCHC 28.5 L RDW 18.2 H Plt Count 355 MPV 10.1 Absolute Nucleated RBC 0.020 H Nucleated RBC % (auto) 0.3 H Anion Gap 13 Estim Creat Clear Calc 57.3 Estimated GFR 46 Random Glucose 99 Calcium 9.9 Assessment and Plan (1) Clostridium difficile colitis: Status: Acute (2) Hydronephrosis: Status: Acute (3) Acute kidney injury: Status: Acute (4) Sepsis: Status: Acute (5) Dehydration: Status: Acute Plan 63 year old severely demented white female with PMH of dysphagia (s/op G-tube placement), schizoaffective disorder, severe intellectual disability, urinary retention (now with a chronic indwelling Cantu catheter), C. diff colitis, hypertension, hyperlipidemia, hypothyroidism, Vitamin D Deficiency, PTSD, anxiety, PVD, GERD, bullous pemphigoid, pressure ulcers, DVT of righ upper extremity (on Eliquis), and fecal incontinence here with: # Sepsis 2/2 C.Diff infection No more diarrhea Negative blood cultures Vancomycin 125 q6 ID recommends PO Vanco + lola at discharge # Acute on chronic anemia Hb improved to 8.6 after 1 unit transfusion No clear source of bleeding dark stool but negative occult blood Should follow up with GI following treatment for c dif as likely not candiate for scope with cdif # Bacteruria Cultures negative Likely colony from chronic Cantu catheter, cantu changed DC Ceftriaxone # Hydronephrosis Seen on CT scan of abdomen Urology eval # Acute hypernatremia resolved follow BMP # CHI, likely from dehydration from diarrhea, now resolved # mild hyperkalemia--repeat tomorrow #Hypernatremia--from free water deficit, increase water in feed # Left foot wound Cx growing Staph and Corynebacterium will get ID eval for medications advice # Dysphagia Start tube feeds all meds per G-tube # H/O DVT resume Eliquis # Hypothyroidism resume Levothyroxine # Hyperlipidemia resume Atorvastatin DVT: SC Lovenox CODE STATUS: Full code Will need overnight hospital stay for management of sepsis with IV antibiotics, blood trnasfusion amd urology procedure Quality Stroke Does the patient have a stroke diagnosis?: No VTE Prior VTE?: Yes VTE Risk Level:: Medical - moderate - high VTE Device Contraindication: Treatment Not Indicated VTE Drug Contraindication: N/A - Med Ordered
--- NOTE | 2023-05-24 13:31 | PM.GICN ---
History of Present Illness Data of Consult Service Date: 05/24/23 Requesting physician: David López Primary Care Provider: Ondina Sewell MD HPI Reason for consult: anemia, GI bleeding 63 YF with severe dementia, dysphagia (s/op G-tube placement), schizoaffective disorder, severe intellectual disability, urinary retention (now with a chronic indwelling cantu catheter), C. diff colitis, hypertension, hyperlipidemia, hypothyroidism, Vitamin D Deficiency, PTSD, anxiety, PVD, GERD, bullous pemphigoid, pressure ulcers, DVT of righ upper extremity (on Eliquis), and fecal incontinence admitted [place] [facility] [place] from [facility] for evaluation of possible GI bleed. Pt was reportedly passing dark and tarry stools earlier in the day and is on Apixaban. Evaluation in the ED did not reveal any tarry stools. Her initial vital signs were notable for a fever off 101.2 F, tachycardia (112) and lab work showed a leukocytosis of 21.9 k/mm3 and mild hypernatremia at 146 mg/dl. Pt has a chronic indwelling cantu catheter and a urinalysis done was concerning for a UTI with positive urine nitrites, 2+ leukocyte esterase, > 50 WBC/HPF and 1+ bacteria. An assessment of UROSEPSIS was made and she was started on intravenous Ceftriaxone and admission requested. She unfortunately is demented an not able to give any history 05/22/23 Stool occult blood was negative 05/20/[address] SCAN SHOWED: 1. Mild left hydroureteronephrosis extending to the ureterovesicular junction. No obstructing calculus is seen, and this could reflect sequelae of a recently passed stone. Alternatively, this could be due to stricturing at the ureterovesicular junction which could be benign or malignant; further urologic workup is advised. 2. Diffuse mural prominence of the urinary bladder which is decompressed with a Cantu catheter. This could be secondary to cystitis in the proper clinical setting. 3. Thick-walled appearance of the collapsed distal sigmoid colon and rectum, which could reflect proctocolitis in the proper clinical setting. 4. Infraumbilical abdominal wall hernia containing a short segment of colon, similar to prior. 5. Left adrenal nodule measuring 1.1 cm, which is nonspecific. Recommend 1-year followup adrenal protocol CT. Review of Systems Review of Systems: Yes Unobtainable due to mental status [facility] Past Medical History Medical History Decubitus ulcer of left buttock, unstageable Decubitus ulcer of buttock, right, unstageable Deep vein thrombosis (DVT) of right upper extremity Hyperlipidemia Hypothyroidism Fever of unknown origin Dysphagia Pressure injury of left heel, stage 3 Pressure ulcer of right leg, stage 3 Pressure sore on ankle COVID Hypertension Hx of long-term use of blood thinners Pulmonary embolism Chronic kidney disease, stage 3 Intellectual disability Schizoaffective disorder Functional capacity: bed bound Family History Family history: reviewed and not pertinent Surgical History Surgical History S/P percutaneous endoscopic gastrostomy (PEG) tube placement Social History Social History Household Members: Unknown / Unable to assess Housing: [facility] Unable to assess alcohol history related to: Unknown Alcohol intake: unknown Comment: does not ambulate Patient Tobacco Use Status: Tobacco use Unknown service: No Current occupational status: disabled Meds Allergies Allergy/AdvReac Type Severity Reaction Status Date / Time aspirin Allergy Unknown Verified 05/20/23 05:48 chlorproethazine Allergy Unknown Verified 05/20/23 05:48 codeine Allergy Unknown Verified 05/20/23 05:48 guaifenesin Allergy Unknown Verified 05/20/23 05:48 Penicillins Allergy Unknown Verified 05/20/23 05:48 phenytoin Allergy Unknown Verified 05/20/23 05:48 potassium [From Potassimin] Allergy Unknown Verified 05/20/23 05:48 Active Medications: Current Medications Acetaminophen (Acetaminophen Oral Liquid 650 Mg/20.3 Ml Solution) 960 mg G-TUBE TID [facility] Last Admin: 05/24/23 10:32 Dose: 960 mg Apixaban (Apixaban 2.5 Mg Tablet) 2.5 mg G-TUBE BID [facility] Last Admin: 05/22/23 08:44 Dose: 2.5 mg Ascorbic Acid (Ascorbic Acid 500 Mg Tablet) 1,000 mg G-TUBE BID [facility] Last Admin: 05/24/23 10:39 Dose: 1,000 mg Atorvastatin Calcium (Atorvastatin Calcium 10 Mg Tablet) 10 mg G-TUBE DAILY [facility] Last Admin: 05/24/23 10:39 Dose: 10 mg Bisacodyl (Bisacodyl 10 Mg Supp.Rect) 10 mg HI DAILY PRN PRN Reason: Constipation Erythromycin (Erythromycin Base 0.5% Oph Oin 1 Gm Tube) 1 cm EYE-BOTH TID [facility] Last Admin: 05/24/23 10:39 Dose: 1 cm Ferrous Sulfate (Ferrous Sulfate 300 Mg/5 Ml Liquid) 352 mg PO DAILY [facility] Last Admin: 05/24/23 10:36 Dose: 352 mg Lactulose (Lactulose 20 Gm/30 Ml Solution) 20 gm G-TUBE BID [facility] Last Admin: 05/21/23 09:28 Dose: Not Given Levothyroxine Sodium (Levothyroxine Sodium 100 Mcg Tablet) 100 mcg G-TUBE DAILY@0600 [facility] Last Admin: 05/24/23 06:13 Dose: 100 mcg Melatonin (Melatonin 3 Mg Tablet) 6 mg G-TUBE BEDTIME PRN PRN Reason: Insomnia Mirtazapine (Mirtazapine 7.5 Mg Tablet) 7.5 mg G-TUBE DAILY [facility] Last Admin: 05/24/23 10:39 Dose: 7.5 mg Morphine Sulfate (Morphine Sulfate 4 Mg/Ml Cartridge) 2 mg IVPUSH Q6H PRN; Protocol PRN Reason: Pain, Severe (Pain Scale 7-10) Ondansetron HCl (Ondansetron Hcl 4 Mg/2 Ml Vial) 4 mg IVPUSH Q8H PRN PRN Reason: Nausea and Vomiting Quetiapine Fumarate (Quetiapine Fumarate 50 Mg Tablet) 50 mg G-TUBE TID [facility] Last Admin: 05/24/23 10:39 Dose: 50 mg Sodium Chloride (0.9 % Sodium Chloride Flush 3 Ml Syringe) 3 ml IVFLUSH QSHIFT [facility] Last Admin: 05/24/23 10:39 Dose: 3 ml Trazodone HCl (Trazodone Hcl 100 Mg Tablet) 200 mg G-TUBE BID [facility] Last Admin: 05/24/23 10:39 Dose: 200 mg Valproic Acid (Valproic Acid (As Sodium Salt) 250 Mg/5 Ml Solution) 1,000 mg G-TUBE BID [facility] Last Admin: 05/24/23 10:31 Dose: 1,000 mg Vancomycin HCl (Vancomycin Hcl Oral Solution 125 Mg/5 Ml Soln.Recon) 125 mg PO Q6H [facility] Last Admin: 05/24/23 10:38 Dose: 125 mg Home Medications Medication Instructions Recorded Confirmed Last Taken Type apixaban 2.5 mg tablet (Eliquis) 2.5 mg feeding tube BID 01/02/22 05/20/23 12/24/22 History atorvastatin 10 mg tablet 10 mg feeding tube DAILY 01/02/22 05/20/23 12/24/22 History lactulose 10 gram/15 mL oral 20 g feeding tube BID 01/02/22 05/20/23 12/24/22 History solution (Enulose) mirtazapine 7.5 mg tablet 7.5 mg feeding tube DAILY 01/02/22 05/20/23 12/24/22 History quetiapine 50 mg tablet 50 mg feeding tube TID 01/02/22 05/20/23 12/24/22 History trazodone 100 mg tablet 200 mg feeding tube BID 01/02/22 05/20/23 12/24/22 History ascorbic acid (vitamin C) 1,000 mg 1,000 mg feeding tube BID 09/29/22 05/20/23 12/24/22 History tablet (Vitamin C) bisacodyl 10 mg rectal suppository 10 mg HI DAILY PRN Constipation 09/29/22 05/20/23 Unknown History tramadol 50 mg tablet 50 mg feeding tube Q12H PRN Pain 09/29/22 05/20/23 12/19/22 History acetaminophen 160 mg/5 mL oral 960 mg feeding tube TID 12/24/22 05/20/23 12/24/22 History elixir amino acids-protein hydrolysate 15 30 ea feeding tube BID 12/24/22 05/20/23 12/24/22 History gram-100 kcal/30 mL oral liquid levothyroxine 100 mcg tablet 100 mcg feeding tube DAILY@0630 12/24/22 05/20/23 12/24/22 History sodium phosphates 19 gram-7 118 ml HI DAILY PRN Constipation 12/24/22 05/20/23 Unknown History gram/118 mL enema (Fleet Enema) valproic acid (as sodium salt) 250 1,000 mg feeding tube BID 12/24/22 05/20/23 12/24/22 History mg/5 mL (5 mL) oral solution erythromycin 5 mg/gram (0.5 %) eye 1 appl ophthalmic (eye) TID 05/20/23 05/20/23 Unknown History ointment ferrous sulfate 220 mg (44 mg 352 mg feeding tube DAILY 05/20/23 05/20/23 Unknown History iron)/5 mL oral solution Physical Exam Vital Signs: Vital Signs: Last Vital Signs Temp 96.8 F 05/24/23 11:06 Pulse 92 05/24/23 11:06 Resp 20 05/24/23 11:06 BP 99/48 L 05/24/23 11:06 Pulse Ox 96 05/24/23 11:06 O2 Del Method Room Air 05/24/23 11:06 O2 Flow Rate 2 05/23/23 07:15 BMI result Body Mass Index 36.0 Const: Other: Constitutional : alert, very talkative but doesn't make any sense Neck : Normal inspection, Supple Cardiovascular : RRR, no JVP, no lower extremity edema Respiratory : good bilateral air entry, no crackles, wheezes or rhonchi, On O2 supplement Gastrointestinal: soft, lax, Normal bowel sounds, Non tender, tube feed in place with no surrounding erythema or drainage Skin : Warm, Dry Neurological : unable to assess orientation, alert, moving all extremities Results Labs 05/24/23 07:31 05/26/23 08:04 Labs: Short CBC 05/24/23 Range/Units 07:31 WBC 7.7 (4.8-10.8) X10*3/uL Hgb 9.5 L (12.0-16.0) g/dl Hct 33.3 L (37.0-47.0) % Plt Count 355 (160-400) X10*3/uL BMP 05/24/23 07:31 Sodium 150 H Potassium 5.2 H Chloride 113 H Carbon Dioxide 29 BUN 33 H Creatinine 1.19 Calcium 9.9 Microbiology Microbiology Results: Microbiology 05/19/23 23:49 Foot Left Gram Stain - Final 05/19/23 23:49 Foot Left Routine Culture - Final Staphylococcus aureus Corynebacterium species 05/19/23 23:08 Blood - Venous Blood Culture - Preliminary No growth after 48 hours. 05/19/23 23:08 Blood - Venous Blood Culture - Preliminary No growth after 48 hours. 05/19/23 Unknown Urine Catheterized - Cantu Catheter Urine Culture - Final Assessment and Plan (1) Clostridium difficile colitis: Status: Acute (2) Rectal bleeding: Status: Acute Plan 63 YF with severe dementia, dysphagia (s/op G-tube placement), schizoaffective disorder, severe intellectual disability, urinary retention (now with a chronic indwelling cantu catheter), C. diff colitis, hypertension, hyperlipidemia, hypothyroidism, Vitamin D Deficiency, PTSD, anxiety, PVD, GERD, bullous pemphigoid, pressure ulcers, DVT of righ upper extremity (on Eliquis), and fecal incontinence admitted [place] [facility] [place] from [facility] for evaluation of possible GI bleed. Pt was reportedly passing dark and tarry stools earlier in the day and was on Apixaban. Evaluation in the ED did not reveal any tarry stools. 05/22/23 Stool occult blood was negative An assessment of UROSEPSIS was made and she was started on intravenous Ceftriaxone and admission requested. Pt was transfused 1 unit of PRBC on admission and H & H has been stable since then. Dark tarry stools likely associated with C Diff colitis RECOMMENDATIONS: 1. Continue vancomycin 125 mg 4 times daily for 10 days followed by taper as recommended by ID 2. Given advanced dementia and no overt bleeding since admission, would hold off invasive procedures and continue conservative management. Procedures Date of Service Date of Service: 05/28/23
[2023-05-24] MEDS: Dextrose 5 % and 0.45 % NaCl 1,000 ML 100 ML IVCONT (13:51)
[2023-05-24 14:37] LABS: Anion Gap 12 (12-20); Blood Urea Nitrogen 32 mg/dL (9-16); Calcium 9.7 mg/dL (8.4-10.2); Carbon Dioxide 27 mmol/L (22-29); Chloride 114 mmol/L (96-108); Creatinine Clr Calc Pharmacy 59.3; Estimated Glomerular Filt Rate 48; Glucose Random 70 mg/dL (60-115); Potassium 5.7 mmol/L (3.3-5.1); Sodium 147 mmol/L (135-145)
--- NOTE | 2023-05-24 14:42 | PC.NURSE ---
iv fluid running, patient iv site infiltrated, patient is diffficult to obtain access, seeking assistance
[2023-05-25] MEDS: Dextrose 5 % and 0.45 % NaCl 1,000 ML 100 ML IVCONT (01:55)
[2023-05-25] MEDS: vancomycin HCL Oral Solution 125 MG/5 ML SOLN.RECON PO ×4 (01:55→19:51)
[2023-05-25 04:00] VITALS: BP 118/64; PULSE 93; RESP 16; TEMP 36.6
[2023-05-25] MEDS: Morphine Sulfate 4 MG/ML CARTRIDGE 2 MG IVPUSH (05:05)
[2023-05-25] MEDS: Levothyroxine Sodium 100 MCG TABLET G-TUBE (05:05)
[2023-05-25 06:00] VITALS: BMI 36.8
[2023-05-25 07:38] VITALS: BP 99/75; PULSE 94; RESP 20; TEMP 36.2; O2SAT 93
[2023-05-25] MEDS: Atorvastatin Calcium 10 MG TABLET G-TUBE (08:39)
[2023-05-25] MEDS: Ascorbic Acid 500 MG TABLET 1000 MG G-TUBE ×2 (08:39→19:51)
[2023-05-25] MEDS: Mirtazapine 7.5 MG TABLET G-TUBE (08:39)
[2023-05-25] MEDS: QUEtiapine Fumarate 50 MG TABLET G-TUBE ×3 (08:39→19:51)
[2023-05-25] MEDS: traZODone HCL 100 MG TABLET 200 MG G-TUBE ×2 (08:39→19:51)
[2023-05-25] MEDS: Erythromycin Base 0.5% Oph Oin 1 GM TUBE 1 CM EYE-BOTH ×3 (08:40→19:51)
[2023-05-25] MEDS: Acetaminophen Oral Liquid 650 MG/20.3 ML SOLUTION 960 MG G-TUBE ×3 (08:41→19:51)
[2023-05-25] MEDS: 0.9 % Sodium Chloride Flush 3 ML SYRINGE IVFLUSH (08:42)
[2023-05-25 09:29] LABS: Anion Gap 10 (12-20); Blood Urea Nitrogen 30 mg/dL (9-16); Calcium 9.7 mg/dL (8.4-10.2); Carbon Dioxide 29 mmol/L (22-29); Chloride 114 mmol/L (96-108); Estimated Glomerular Filt Rate 54; Glucose Random 89 mg/dL (60-115); Potassium 5.1 mmol/L (3.3-5.1); Sodium 148 mmol/L (135-145)
[2023-05-25] MEDS: Sodium Zirconium Cyclosilicate 10 GM POWD.PACK G-TUBE (11:22)
[2023-05-25] MEDS: Dextrose 5 % 1,000 ML 125 ML IVCONT ×3 (11:23→19:52)
[2023-05-25] MEDS: Ferrous Sulfate 300 MG/5 ML LIQUID 352 MG PO (11:23)
--- NOTE | 2023-05-25 11:25 | MHC.CLN ---
F/U REVIEWED LABS NOTED INCREASE IN FREE WATER FLSUHES TO 300ML FWF Q 6HRS PER MD PT RECEIVING OSMOLITE 1.5 AT MAX GOAL RATE 60ML/HR WITH 300ML FREE WATER FLUSHES Q 6 HRS PROVIDES 2160KCALS (30KCALS/KG), 90G PROTEIN (1.25G/KG), 2297ML TOTAL WATER FROM FORMULA AND FLUSHES (32ML/KG) TF WILL PROMOTE WOUND HEALING MONITOR TOLERANCE, RESIDUALS AND LYTES
[2023-05-25 12:00] VITALS: BP 109/62; PULSE 80; RESP 20; TEMP 36.6; O2SAT 98
--- NOTE | 2023-05-25 13:43 | MHC.CM.PN ---
Pt not yet ready for DC. DC plan is for her to return to [facility], where she resides half-way. CM to follow and assist as needed with DC planning.
[2023-05-25 15:54] VITALS: BP 98/44; PULSE 90; RESP 18; TEMP 36.7; O2SAT 96
[2023-05-25 19:56] VITALS: BP 105/50; PULSE 79; RESP 18; TEMP 36.6; O2SAT 94
[2023-05-25 21:02] LABS: Anion Gap 12 (12-20); Carbon Dioxide 25 mmol/L (22-29); Chloride 114 mmol/L (96-108); Sodium 146 mmol/L (135-145)
[2023-05-26] VITALS: BP 173/112; PULSE 98; RESP 20; TEMP 36.3; O2SAT 96
[2023-05-26 00:30] VITALS: BP 140/80
[2023-05-26] MEDS: vancomycin HCL Oral Solution 125 MG/5 ML SOLN.RECON PO ×3 (01:01→13:45)
[2023-05-26 04:00] VITALS: BP 118/84; PULSE 75; RESP 20; TEMP 36.1; O2SAT 99
[2023-05-26] MEDS: Dextrose 5 % 1,000 ML 125 ML IVCONT (05:37)
[2023-05-26] MEDS: Levothyroxine Sodium 100 MCG TABLET G-TUBE (05:37)
[2023-05-26 06:00] VITALS: BMI 36.5
[2023-05-26 06:40] VITALS: BMI 38.4
[2023-05-26 08:00] VITALS: BP 130/69; PULSE 89; RESP 20; TEMP 36.1; O2SAT 98
[2023-05-26] MEDS: Acetaminophen Oral Liquid 650 MG/20.3 ML SOLUTION 960 MG G-TUBE (08:15)
[2023-05-26] MEDS: Ferrous Sulfate 300 MG/5 ML LIQUID 352 MG PO (08:17)
[2023-05-26] MEDS: traZODone HCL 100 MG TABLET 200 MG G-TUBE (08:17)
[2023-05-26] MEDS: Mirtazapine 7.5 MG TABLET G-TUBE (08:17)
[2023-05-26] MEDS: 0.9 % Sodium Chloride Flush 3 ML SYRINGE IVFLUSH ×2 (08:17→13:46)
[2023-05-26] MEDS: Atorvastatin Calcium 10 MG TABLET G-TUBE (08:17)
[2023-05-26] MEDS: Ascorbic Acid 500 MG TABLET 1000 MG G-TUBE (08:17)
[2023-05-26] MEDS: Erythromycin Base 0.5% Oph Oin 1 GM TUBE 1 CM EYE-BOTH ×2 (08:17→13:46)
[2023-05-26] MEDS: QUEtiapine Fumarate 50 MG TABLET G-TUBE ×2 (08:17→13:45)
[2023-05-26 08:44] LABS: Anion Gap 10 (12-20); Blood Urea Nitrogen 27 mg/dL (9-16); Calcium 9.4 mg/dL (8.4-10.2); Carbon Dioxide 28 mmol/L (22-29); Chloride 107 mmol/L (96-108); Creatinine Clr Calc Pharmacy 69.3; Estimated Glomerular Filt Rate 55; Glucose Random 94 mg/dL (60-115); Sodium 140 mmol/L (135-145)
[2023-05-26 11:19] VITALS: BP 144/53; PULSE 96; RESP 16; TEMP 36.4; O2SAT 98
--- NOTE | 2023-05-26 12:49 | P.DS_ITS ---
DS: Providers Provider Date of Service: 05/26/23 Date of admission: 05/20/23 05:53 Primary care physician: Ondina Sewell MD Consults: 05/21/23 09:44 Consult to Urology Routine Consulting Provider: Adithya Joya Reason for consultation: CHI w left hydroureteronephrosis extending to the ureterovesicular junction 05/23/23 11:27 Consult to Infectious Diseases Routine Consulting Provider: [facility] Infectious Disease Reason for consultation: CDiff infx w Left foot wound growing Staph. for med advice 05/23/23 13:44 Consult to Wound Care Routine Reason for consultation: chronic wounds 05/24/23 13:25 Consult to Gastroenterology Routine Consulting Provider: Elizabeth Easley Reason for consultation: Gi bleeding, anemia Has provider been notified: No DS: Diagnosis Discharge Diagnosis (1) Clostridium difficile colitis: Status: Acute (2) Hydronephrosis: Status: Acute (3) Acute kidney injury: Status: Acute (4) Sepsis: Status: Acute (5) Dehydration: Status: Acute DS: Summary Hospital Course Hospital Course: Chief Complaint: From [facility] reportedly passed dark & tarry stools concerning for GI bleed Source: Review of SNF notes and our EMR including ED notes Patient is a 63 year old severely demented white female with PMH of dysphagia (s/op G-tube placement), schizoaffective disorder, severe intellectual disability, urinary retention (now with a chronic indwelling cantu catheter), C. diff colitis, hypertension, hyperlipidemia, hypothyroidism, Vitamin D Deficiency, PTSD, anxiety, PVD, GERD, bullous pemphigoid, pressure ulcers, DVT of righ upper extremity (on Eliquis), and fecal incontinence brought in from [facility] where she currently resigns for evaluation of possible GI bleed. She was reportedly passing dark and tarry stools earlier in the day and is on Apixaban and hence this was concerning. However, evaluation in the ED did not reveal any tarry stools. Her initial vital signs were notable for a fever off 101.2 F, tachycardia (112) and lab work showed a leukocytosis of 21.9 k/mm3 and mild hypernatremia at 146 mg/dl. She has a chronic indwelling cantu catheter and a urinalysis done was concerning for a UTI with positive urine nitrites, 2+ leukocyte esterase, > 50 WBC/HPF and 1+ bacteria. An assessment of UROSEPSIS was made and she was started on intravenous Ceftriaxone and admission requested. She unfortunately is demented an not able to give any history. Hospital course: Patient was brought in from SNF due to diarrhea and initial concern of GI bleeding due to report of dark stools. Work up revealed acute revealed C dif, anemia, Acute renal failure, dehydration and hypernatremia. Hospital course by candido # Sepsis due to C dif.. C dif has been treated with Vancomycin, she was seen by Dr. Franks infectious disease expert and she recommens treated with Vancomycin for 10 days follow by Nabil given recurrence and further recommend outpatient follow up. She has been treated in the hospital for 5 days and will treat for an aditional five days follow by nabil see meds # Acute on chronic anemia, no clear source of infection, occult blood was negative. Initial hemoglobin was 7 and hematocrit 24, patient was transfused 1 unit of RBC and hemoglobin and hematocrit have improved. Presently 9.. She was assessed by Gastrointerolgist with no recommendation for procedure # Bacteruria Cultures negative. Likely colony from chronic Cantu catheter, cantu changed, Initially was on Ceftriaxone but was discontinued on GI advise # Hydronephrosis Seen on CT scan of abdomen Urology eval. Initially had acute renal failure but his has resolbed, not believed that hydronephrosis is cause or renal failure as such should follow up on outpatient basis # Acute hypernatremia from dehydration from diarrhea, sodium was 140 on 05/21, patient was treated with increasing water in the feed and ultimately given her IV water as well, going forward to prevent recurent deydration, recomeding increaseing Water in feed to 400 cc 4 times a day and should periodic lab check # CHI, likely from dehydration from diarrhea, now resolved after IV fluid, initial creatinine was 1.5 and now 1.02 # mild hyperkalemia--resolved and was treated wtih time dose of Lokelma # Left foot wound Cx growing Staph and Corynebacterium--from surface culture and likely colonization and don't think antibiotic treatment at this time, discussed with id # Dysphagia--Continue tube feed--See instruction # H/O DVT--Continue Eliquis # Hypothyroidism resume Levothyroxine I discussed disposition back to [facility] with Guardisteven Erazo [phone] and had no objection to discharge Time Attestation Discharge coordination time: Greater than 30 minutes Quality: Safe Use of Opioids Does Pt have an Active Cancer Diagnosis on the Problem List?: No Quality: Stroke Does the patient have a stroke diagnosis?: No Physical Exam Vital Signs: Vital Signs: Last Vital Signs Temp 97.6 F 05/26/23 11:19 Pulse 96 05/26/23 11:19 Resp 16 05/26/23 11:19 BP 144/53 H 05/26/23 11:19 Pulse Ox 98 05/26/23 11:19 O2 Del Method Room Air 05/26/23 11:19 O2 Flow Rate 2 05/23/23 07:15 BMI result Body Mass Index 38.4 DS: Data Data Completed and Pending Labs on day of discharge: Laboratory Results - last 24 hr 05/25/23 05/26/23 20:13 08:04 Hold Purple Top SEE NOTE Sodium 146 H 140 Potassium 5.0 5.0 Chloride 114 H 107 Carbon Dioxide 25 28 Anion Gap 12 10 L BUN 27 H Creatinine 1.02 Estim Creat Clear Calc 69.3 Estimated GFR 55 Random Glucose 94 Calcium 9.4 Discharge Plan Discharge Anticipated Discharge Date/Time: 05/26/23 12:19 Patient Disposition: Xfer SNF Discharge Diagnosis: Sepsis due to C dif Referrals: [facility] [Outside] - 1 Week Adithya Joya MD [Physician] - 2 Weeks (Follow up on Hydronephrosis) Samira Rodriguez MD [Physician] - 1 Week (f/u on C dif) Ondina Sewell MD [Primary Care Provider] - 1 Week Discharge Medications: New vancomycin [Firvanq] 25 mg/mL Recon Soln 125 mg PO Q6H 58 Days Qty: 1160 0RF Rx Instructions: Direction: Week 1: 125 mg four times per day (QID) for 5 more days Week 2: 125 mg twice per day (BID) Week 3: 125 mg daily Week 4: 125 mg every other day Weeks 5-8: 125 mg every 3 days Continued atorvastatin 10 mg Tablet 10 mg feeding tube DAILY trazodone 100 mg Tablet 200 mg feeding tube BID mirtazapine 7.5 mg Tablet 7.5 mg feeding tube DAILY lactulose [Enulose] 10 gram/15 mL Solution 20 g feeding tube BID quetiapine 50 mg Tablet 50 mg feeding tube TID Eliquis 2.5 mg Tablet 2.5 mg feeding tube BID ascorbic acid (vitamin C) [Vitamin C] 1,000 mg Tablet 1,000 mg feeding tube BID tramadol 50 mg Tablet 50 mg feeding tube Q12H PRN (Reason: Pain) bisacodyl 10 mg Suppository 10 mg TX DAILY PRN (Reason: Constipation) Fleet Enema 19-7 gram/118 mL Enema 118 ml TX DAILY PRN (Reason: Constipation) acetaminophen 160 mg/5 mL Elixir 960 mg feeding tube TID amino acids-protein hydrolys 15-100 gram-kcal/30 mL Liquid 30 ea feeding tube BID Rx Instructions: 30 mL BID valproic acid (as sodium salt) 250 mg/5 mL (5 mL) Solution 1,000 mg feeding tube BID levothyroxine 100 mcg Tablet 100 mcg feeding tube DAILY@0630 ferrous sulfate 220 mg (44 mg iron)/5 mL Solution 352 mg feeding tube DAILY erythromycin 5 mg/gram (0.5 %) Ointment 1 appl OPHTHALMIC (EYE) TID Discharge Orders: Discharge Order (Routine); Ordered 05/26/23 Ordered By: David López Diet: Tube feed Activity on Discharge: As tolerated Stand Alone Forms: Patient Portal Discharge page Care Plan Goals: Full recovery from C dif infection, dehydration and acute kidney failure Health Concerns: C dif with dehydration, hypernatremia Plan of Treatment: Take Vancomycin with nabil as follow * Week 1:?125 mg four times per day (QID), 5 more days * Week 2:?125 mg twice per day (BID) * Week 3:?125 mg daily * Week 4:?125 mg every other day * Weeks 5-8:?125 mg every 3 days Follow up with Dr. Rodriguez on outpatient basis Tube Feed direction: PT TO RECEIVING OSMOLITE 1.5 AT MAX GOAL RATE 60ML/HR WITH 350ML FREE WATER FLUSHES Q 6 MONITOR TOLERANCE, RESIDUALS BEFORE. PERIODIC ELECTROLYTES CHECK Wound care recommendation: Recommendations: 1. Turn and Reposition every 2 hours and as needed for patient comfort. 2. Off Load all bony prominences with use of pillows and heel boots if needed.? Apply Preventative foams where needed. ? 3. Monitor for incontinence and moisture control, use barrier creams when needed for prevention and treatment. 4. Provide adequate and supplemental nutrition. 5. Order or Continue low air loss mattress. 6. Coccyx, buttocks and Left Ischium - Off Load Pressure - Cleanse with PH balance spray, pat dry. ?Apply thin layer of Triad to wound bed - only pat and dab no scrub and rub when soiling occurs. Reapply thin layer PRN after each episode of incontinence. 7. Right Heel - Off Load Pressure with boots - protect from friction and allow for moist wound healing with foam application. Peel back and assess Q shift and change ever 3 days. 8. Left Heel - Off Load Pressure with boots - Cleanse and irrigate with NS, Pat dry.? Apply barrier wipe to periwound, lightly pack with Durafiber AG, be sure to leave a wick to easy removal.? Cover with Foam dressing.? Change Daily. 9. Right Ischium - Off Load Pressure - Cleanse and irrigate with NS, Pat dry.? Apply barrier to periwound, lightly pack with Durafiber AG, be sure to leave a wick to easy removal.? Cover with Foam dressing.? Change Daily. Check BMP in 3 days Assessment: as above
--- NOTE | 2023-05-26 13:53 | MHC.CM.PN ---
Second IMM given 05/26 via telephone call to pts guardian Edith Angeles at [phone]. Pt is medically cleared for D/C back to [facility]. Transport booked via BLS/Jessica at 3pm.
--- NOTE | 2023-05-26 14:37 | PC.NURSE ---
Attempted to contact [facility] at this time- unsuccessful. Per racing secretary and handicapper phones are down . Unable to give report to receiving facility at this time.
--- NOTE | 2023-05-30 13:19 | P.CDIM_ITS ---
PROVIDER RESPONSE TEXT: To clarify, the appropriate diagnosis supported by the clinical indicators: Pressure (decubitus) ulcer left ischium stage 4, POA QUERY TEXT: PHYSICIAN'S DOCUMENTATION REQUEST Date of Query: 05/25/2023 10:28 AM EST Patient Name: MIKO DAVID Admit Date: 05/20/2023 Dear David Strickland, A review of the medical record indicates additional documentation may be needed. Please review below and update the documentation accordingly. Clinical Indicators: Per Wound Note 05/23/23: Left Ischium - Resurfaced suspected stage 4 pressure injury based on healing pattern and depth Based on the above, could you please provide further information regarding the ulcer/wound: Pressure (decubitus) ulcer left ischium stage 4, POA Other (explain) Clinically unable to determine (explain) Thank you, Daisy Duenas RN Use of terms such as suspected, likely, concern for, or probable (associated with a specific diagnosi s that is being evaluated, monitored, or treated as if it exists) are acceptable and can be coded in the inpatient se tting, when documented at the time of discharge. Please use your independent medical judgment in providing your response. THIS QUERY IS PART OF THE PERMANENT MEDICAL RECORD
--- NOTE | 2023-05-30 13:19 | P.CDIM_ITS ---
PROVIDER RESPONSE TEXT: To clarify, the appropriate diagnosis supported by the clinical indicators: Unstageable Pressure (decubitus) ulcer coccyx, POA QUERY TEXT: PHYSICIAN'S DOCUMENTATION REQUEST Date of Query: 05/25/2023 10:23 AM EST Patient Name: MIKO DAVID Admit Date: 05/20/2023 Dear David López, A review of the medical record indicates additional documentation may be needed. Please review below and update the documentation accordingly. Clinical Indicators: Per Wound Consult 05/23/23: Coccyx Etiology: Unstageable Pressure Injury POA Wound Bed: moist adherent yellow slough marbled pink wound bed Drainage / Odor: scant serosang - no odor Edges: unattached Alycia wound: MASD (Moisture associated Skin Damage - Incontinence Associated Dermatitis) No Induration , Fluctuance or Warmth noted Pain: difficult to assess Goals of Treatment: Moist wound healing - allow for autolytic debridement with Triad Based on the above, could you please provide further information regarding the ulcer/wound: Unstageable Pressure (decubitus) ulcer coccyx, POA Other (explain) Clinically unable to determine (explain) Thank you, Daisy Duenas RN Use of terms such as suspected, likely, concern for, or probable (associated with a specific diagnosi s that is being evaluated, monitored, or treated as if it exists) are acceptable and can be coded in the inpatient se tting, when documented at the time of discharge. Please use your independent medical judgment in providing your response. THIS QUERY IS PART OF THE PERMANENT MEDICAL RECORD
--- NOTE | 2023-05-30 13:19 | P.CDIM_ITS ---
PROVIDER RESPONSE TEXT: To clarify, the appropriate diagnosis supported by the clinical indicators: Pressure (decubitus) ulcer left heel, unstageable POA QUERY TEXT: PHYSICIAN'S DOCUMENTATION REQUEST Date of Query: 05/25/2023 10:29 AM EST Patient Name: MIKO DAVID Admit Date: 05/20/2023 Dear David López, A review of the medical record indicates additional documentation may be needed. Please review below and update the documentation accordingly. Clinical Indicators: Per Wound Note 05/23/23: Left heel Etiology: Unstageable Pressure Injury POA Wound Bed: marbles wound bed with moist red pink tissue and adherent thick yellow slough Drainage / Odor: moderate kinsey yellow - no odor Edges: unattached Alycia wound: Red pink blanchable tissue No Induration, Fluctuance or Warmth noted Pain: difficult to assess Goals of Treatment: Moisture management with Alginate packing - heel boot applied Based on the above, could you please provide further information regarding the ulcer/wound: Pressure (decubitus) ulcer left heel, unstageable POA Other (explain) Clinically unable to determine (explain) Thank you, Daisy Duenas RN Use of terms such as suspected, likely, concern for, or probable (associated with a specific diagnosi s that is being evaluated, monitored, or treated as if it exists) are acceptable and can be coded in the inpatient se tting, when documented at the time of discharge. Please use your independent medical judgment in providing your response. THIS QUERY IS PART OF THE PERMANENT MEDICAL RECORD
--- NOTE | 2023-05-30 13:19 | P.CDIM_ITS ---
PROVIDER RESPONSE TEXT: To clarify, the appropriate diagnosis supported by the clinical indicators: Pressure (decubitus) ulcer right ischium stage 4, POA QUERY TEXT: PHYSICIAN'S DOCUMENTATION REQUEST Date of Query: 05/25/2023 10:26 AM EST Patient Name: MIKO DAVID Admit Date: 05/20/2023 Dear David López, A review of the medical record indicates additional documentation may be needed. Please review below and update the documentation accordingly. Clinical Indicators: Per Wound Note 05/23/23: Right Ischium Etiology: Stage 4 Pressure Injury POA Wound Bed: moist red pink wound bed Drainage / Odor: moderate serosang - no odor Edges: unattached Alycia wound: MASD (Moisture associated Skin Damage - Incontinence Associated Dermatitis) No Induration , Fluctuance or Warmth noted - slow to kate periwound Pain: difficult to assess Goals of Treatment: Moisture management with Alginate packing Based on the above, could you please provide further information regarding the ulcer/wound: Pressure (decubitus) ulcer right ischium stage 4, POA Non Other (explain) Clinically unable to determine (explain) Thank you, Daisy Duenas RN Use of terms such as suspected, likely, concern for, or probable (associated with a specific diagnosi s that is being evaluated, monitored, or treated as if it exists) are acceptable and can be coded in the inpatient se tting, when documented at the time of discharge. Please use your independent medical judgment in providing your response. THIS QUERY IS PART OF THE PERMANENT MEDICAL RECORD
== END 2023-05-26 15:13 | disposition skilled nursing facility (03) | DRG 871 ==
LOC: HO.ED 05-20 03:59 → HO.EDOVER 05-20 06:03 → HO.IMC 05-20 07:31
PROVIDERS: Student in an Organized Health Care Education/Training Program; Admitting Provider Internal Medicine; Emergency Provider Emergency Medicine; PCP Internal Medicine; Visit Provider Internal Medicine
DX: A41.89 Other specified sepsis (principal); L89.214 Pressure ulcer of right hip, stage 4; L89.623 Pressure ulcer of left heel, stage 3; F72 Severe intellectual disabilities; A04.72 Enterocolitis due to Clostridium difficile, not specified as recurrent; N17.9 Acute kidney failure, unspecified; N13.30 Unspecified hydronephrosis; E87.0 Hyperosmolality and hypernatremia; R31.9 Hematuria, unspecified; E03.9 Hypothyroidism, unspecified; Z93.1 Gastrostomy status; E78.5 Hyperlipidemia, unspecified; E87.5 Hyperkalemia; F03.C0 Unspecified dementia, severe, without behavioral disturbance, psychotic disturbance, mood disturbance, and anxiety; F20.9 Schizophrenia, unspecified; L89.150 Pressure ulcer of sacral region, unstageable; R13.10 Dysphagia, unspecified; R65.20 Severe sepsis without septic shock; E86.0 Dehydration; I10 Essential (primary) hypertension; D64.9 Anemia, unspecified; Z86.718 Personal history of other venous thrombosis and embolism; Z79.01 Long term (current) use of anticoagulants; Z79.890 Hormone replacement therapy; Z79.899 Other long term (current) drug therapy
CPT/HCPCS: 0241U; 36415; 71045; 73650; 74177; 80048; 80051; 80053; 80076; 80164; 81001; 82272; 82803; 83010; 83605; 83615; 83690; 83735; 83970; 85025; 85027; 85045; 86140; 86850; 86880; 86900; 86901; 86923; 87040; 87070; 87077; 87086; 87186; 87205; 87324; 87493; 93005; 99285; C1758; J0692; J0696; J2270; P9016; Q9967

== ENCOUNTER → 2023-05-19 22:38 | Outpatient (BNV) | payer MEDICARE, MEDICAID, SELFPAY | PROVIDERS: Admitting Provider Internal Medicine; Emergency Provider Emergency Medicine; PCP Internal Medicine; Visit Provider Internal Medicine Cardiovascular Disease | DX: R00.0 Tachycardia, unspecified (principal) | CPT/HCPCS: 93010 ==

== ENCOUNTER → 2023-05-20 05:53 | Outpatient (BNV) | payer MEDICARE, MEDICAID, SELFPAY | PROVIDERS: Admitting Provider Internal Medicine; Emergency Provider Emergency Medicine; PCP Internal Medicine; Visit Provider Internal Medicine | DX: A04.72 Enterocolitis due to Clostridium difficile, not specified as recurrent (principal); N13.30 Unspecified hydronephrosis; A41.9 Sepsis, unspecified organism; R65.20 Severe sepsis without septic shock; N17.9 Acute kidney failure, unspecified | CPT/HCPCS: 99222 ==

== ENCOUNTER → 2023-05-20 05:53 | Outpatient (BNV) | payer MEDICARE, MEDICAID, SELFPAY | PROVIDERS: Admitting Provider Internal Medicine; Emergency Provider Emergency Medicine; PCP Internal Medicine; Visit Provider Internal Medicine Gastroenterology | DX: A04.72 Enterocolitis due to Clostridium difficile, not specified as recurrent (principal); K62.5 Hemorrhage of anus and rectum | CPT/HCPCS: 99222 ==

== ENCOUNTER → 2023-05-20 05:53 | Outpatient (BNV) | payer MEDICARE, MEDICAID, SELFPAY | PROVIDERS: Admitting Provider Internal Medicine; Emergency Provider Emergency Medicine; PCP Internal Medicine; Visit Provider Internal Medicine | DX: A41.9 Sepsis, unspecified organism (principal); R65.20 Severe sepsis without septic shock; N17.9 Acute kidney failure, unspecified; L89.623 Pressure ulcer of left heel, stage 3; N30.01 Acute cystitis with hematuria; E86.0 Dehydration; N39.0 Urinary tract infection, site not specified | CPT/HCPCS: 99223; 99233; 99239; 99499 ==

== ENCOUNTER 2023-06-06 13:17 | Outpatient (AMB) | payer MEDICARE, MEDICAID, SELFPAY ==
--- NOTE | 2023-06-06 13:24 | A.OFFVIS_ITS ---
Intake Vital Signs 06/06/23 13:39 BP 99/65 Blood Pressure Location Lt brachial Position Sitting Pulse 93 Pulse Source Pulse Oximeter Temp 97.9 F Temp Source Oral Pulse Oximetry (%) 95 Intake Visit Reasons: [facility] f/u sepsis UTI Allergies aspirin Allergy (Verified 06/06/23 13:39) Unknown chlorproethazine Allergy (Verified 06/06/23 13:39) Unknown codeine Allergy (Verified 06/06/23 13:39) Unknown guaifenesin Allergy (Verified 06/06/23 13:39) Unknown Penicillins Allergy (Verified 06/06/23 13:39) Unknown phenytoin Allergy (Verified 06/06/23 13:39) Unknown potassium [From Potassimin] Allergy (Verified 06/06/23 13:39) Unknown HPI [facility] f/u sepsis UTI HPI Details She has taken po Vancomycin and has felt well. She has no diarrhea reported or fever. 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 Pulmonary embolism Chronic kidney disease, stage 3 Intellectual disability Schizoaffective disorder Surgical History S/P percutaneous endoscopic gastrostomy (PEG) tube placement Social History Household Members: Unknown / Unable to assess Housing: Intermediate Unable to assess alcohol history related to: Unknown Alcohol intake: unknown Comment: does not ambulate Patient Tobacco Use Status: Tobacco use Unknown service: No Current occupational status: disabled Review of Systems Const All systems reviewed & are unremarkable except as noted in HPI and below Physical Exam Vital Signs: Last Vital Signs Temp 97.9 F 06/06/23 13:39 Pulse 93 06/06/23 13:39 BP 99/65 06/06/23 13:39 Pulse Ox 95 06/06/23 13:39 Const General: cooperative Orientation/consciousness: patient oriented x3 HEENT Head: Yes normal to inspection Mouth: Normal oral and palatal mucosa present Eyes General: appearance normal, both eyes and all related structures Pupils: Equal, round and reactive pupils present Resp Effort & Inspection: normal respiratory effort Cardio Rate: regular rate Rhythm: regular rhythm GI Palpation (GI): Soft to palpation and nontender General: Yes no CVA tenderness Back/Spine/Pelvis Back: no CVA tenderness Skin General skin exam: no rashes or lesions noted Neuro General: patient oriented x3 Cranial nerves: Yes CN's II-XII intact bilaterally and Yes Equal, round and reactive pupils present Extrem General: Yes normal to inspection Psych Appearance: grossly normal Assessment & Plan Assessment & Plan (1) Clostridium difficile colitis: Code(s): A04.72 - Enterocolitis due to Clostridium difficile, not specified as recurrent Plan: Finish 10 d Vancomycin Coding Level of Care Code Est Pt Level 3 (61566) Diagnoses Clostridium difficile colitis A04.72
[2023-06-06 13:39] VITALS: BP 99/65; PULSE 93; TEMP 36.6; O2SAT 95
== END 2023-06-06 14:18 | disposition home or self-care (01) ==
LOC: HO.HID 13:18
PROVIDERS: PCP Internal Medicine; Visit Provider Internal Medicine
DX: A04.72 Enterocolitis due to Clostridium difficile, not specified as recurrent (principal)
CPT/HCPCS: 99213

== ENCOUNTER → 2023-06-06 13:17 | Outpatient (BNVA) | payer MEDICARE, MEDICAID, SELFPAY | PROVIDERS: PCP Internal Medicine; Visit Provider Internal Medicine | DX: A04.72 Enterocolitis due to Clostridium difficile, not specified as recurrent (principal) | CPT/HCPCS: 99212 ==

== ENCOUNTER 2023-08-22 13:58 | Outpatient (AMB) | payer MEDICARE, MEDICAID, SELFPAY ==
[2023-08-22 14:16] VITALS: PULSE 113; TEMP 36.9; O2SAT 90
--- NOTE | 2023-08-22 14:16 | MHC.OFFVIS ---
Intake Vital Signs 08/22/23 14:16 Height 5 ft 6 in Pulse 113 H Pulse Source Pulse Oximeter Temp 98.4 F Temp Source Oral Pulse Oximetry (%) 90 L Intake Visit Re[facility] Allergies aspirin Allergy (Verified 08/22/23 14:16) Unknown chlorproethazine Allergy (Verified 08/22/23 14:16) Unknown codeine Allergy (Verified 08/22/23 14:16) Unknown guaifenesin Allergy (Verified 08/22/23 14:16) Unknown Penicillins Allergy (Verified 08/22/23 14:16) Unknown phenytoin Allergy (Verified 08/22/23 14:16) Unknown potassium [From Potassimin] Allergy (Verified 08/22/23 14:16) Unknown HPI [facility] HPI Details She has reported Cdiff. She has no diarrhea at this time. She has some hypoxia to 90 PFSH Medical History Hypercalcemia Osteomyelitis Decubitus ulcer of left buttock, unstageable Decubitus ulcer of buttock, right, unstageable Deep vein thrombosis (DVT) of right upper extremity Hyperlipidemia Hypothyroidism Fever of unknown origin Dysphagia Pressure injury of left heel, stage 3 Pressure ulcer of right leg, stage 3 Pressure sore on ankle COVID Hypertension Hx of retirement use of blood thinners Pulmonary embolism Chronic kidney disease, stage 3 Intellectual disability Schizoaffective disorder Surgical History S/P percutaneous endoscopic gastrostomy (PEG) tube placement Social History Household Members: Unknown / Unable to assess Housing: [facility] Unable to assess alcohol history related to: Unable to respond Alcohol intake: unknown Comment: does not ambulate Patient Tobacco Use Status: Tobacco use Unknown Use of substances other than those prescribed or required for medical reasons: Unable to respond Advance Directives: No Advance Directives Information Provided: No service: No Current occupational status: disabled Physical Exam Vital Signs: Last Vital Signs Temp 98.4 F 08/22/23 14:16 Pulse 113 H 08/22/23 14:16 Pulse Ox 90 L 08/22/23 14:16 Const General: cooperative Orientation/consciousness: patient oriented x3 HEENT Head: Yes normal to inspection Mouth: Normal oral and palatal mucosa present Eyes General: appearance normal, both eyes and all related structures Pupils: Equal, round and reactive pupils present Resp Effort & Inspection: normal respiratory effort Cardio Rate: regular rate Rhythm: regular rhythm GI Palpation (GI): Soft to palpation and nontender General: Yes no CVA tenderness Back/Spine/Pelvis Back: no CVA tenderness Skin General skin exam: no rashes or lesions noted Neuro General: patient oriented x3 Cranial nerves: Yes CN's II-XII intact bilaterally and Yes Equal, round and reactive pupils present Extrem General: Yes normal to inspection Psych Appearance: grossly normal Assessment & Plan Assessment & Plan (1) Clostridium difficile colitis: Comment: Shortness of breath and hypoxia. No symptoms Cdiff at this time. Code(s): A04.72 - Enterocolitis due to Clostridium difficile, not specified as recurrent Plan: ER for hypoxia. Coding Level of Care Code Est Pt Level 3 (00927) Diagnoses Clostridium difficile colitis A04.72
== END 2023-08-22 14:40 | disposition home or self-care (01) ==
LOC: HO.HID 13:58
PROVIDERS: PCP Internal Medicine; Visit Provider Internal Medicine
DX: A04.72 Enterocolitis due to Clostridium difficile, not specified as recurrent (principal)
CPT/HCPCS: 99213

== ENCOUNTER 2023-08-22 14:53 | Emergency (ER) | payer MEDICARE, MEDICAID, SELFPAY ==
--- NOTE | ~2023-08-22 | XR_ITS ---
EXAMINATION: XR CHEST CLINICAL INFORMATION: Hypoxia COMPARISON: 05/19/2023 TECHNIQUE: Frontal view of the chest was obtained. FINDINGS: Chin obscures the right apex. Heart and mediastinum within normal limits. No vascular congestion. No consolidations or effusions. Bony structures are intact. XR/XR chest 1V IMPRESSION: No acute cardiopulmonary disease.
[2023-08-22 14:57] VITALS: BP 156/88; BP 97/60; PULSE 74; PULSE 98; RESP 16; TEMP 36.6; O2SAT 90; O2SAT 91; BMI 38.3
--- NOTE | 2023-08-22 15:29 | ED.GENADULT ---
HPI - General Adult General Chief complaint: General Medical Stated complaint: Hypoxia Time Seen by Provider: 08/22/23 15:23 Source: other (nurse) Mode of arrival: EMS Limitations: physical limitation History of Present Illness HPI narrative: Patient with special needs who lives in a [facility]. She has an order from the [facility] for O2 if her oxygen falls below 90%. There has been no fever or cough. Patient found to have O2 at [facility] clinic of 90% so the clinic sent the patient to the ED. No cough not in any extremis Onset (ago): unknown Related Data Home Medications Medication Instructions Recorded Confirmed apixaban 2.5 mg tablet (Eliquis) 2.5 mg feeding tube BID 01/02/22 05/20/23 atorvastatin 10 mg tablet 10 mg feeding tube DAILY 01/02/22 05/20/23 lactulose 10 gram/15 mL oral 20 g feeding tube BID 01/02/22 05/20/23 solution (Enulose) mirtazapine 7.5 mg tablet 7.5 mg feeding tube DAILY 01/02/22 05/20/23 quetiapine 50 mg tablet 50 mg feeding tube TID 01/02/22 05/20/23 trazodone 100 mg tablet 200 mg feeding tube BID 01/02/22 05/20/23 ascorbic acid (vitamin C) 1,000 mg 1,000 mg feeding tube BID 09/29/22 05/20/23 tablet (Vitamin C) bisacodyl 10 mg rectal suppository 10 mg TX DAILY PRN Constipation 09/29/22 05/20/23 tramadol 50 mg tablet 50 mg feeding tube Q12H PRN Pain 09/29/22 05/20/23 acetaminophen 160 mg/5 mL oral 960 mg feeding tube TID 12/24/22 05/20/23 elixir amino acids-protein hydrolysate 15 30 ea feeding tube BID 12/24/22 05/20/23 gram-100 kcal/30 mL oral liquid levothyroxine 100 mcg tablet 100 mcg feeding tube DAILY@0630 12/24/22 05/20/23 sodium phosphates 19 gram-7 118 ml TX DAILY PRN Constipation 12/24/22 05/20/23 gram/118 mL enema (Fleet Enema) valproic acid (as sodium salt) 250 1,000 mg feeding tube BID 12/24/22 05/20/23 mg/5 mL (5 mL) oral solution erythromycin 5 mg/gram (0.5 %) eye 1 appl ophthalmic (eye) TID 05/20/23 05/20/23 ointment ferrous sulfate 220 mg (44 mg 352 mg feeding tube DAILY 05/20/23 05/20/23 iron)/5 mL oral solution Previous Rx's Medication Instructions Recorded vancomycin 25 mg/mL oral solution 125 mg (5 mL) PO Q6H 58 days 05/26/23 (Firvanq) #1,160 mL Allergies Allergy/AdvReac Type Severity Reaction Status Date / Time aspirin Allergy Unknown Verified 08/22/23 14:16 chlorproethazine Allergy Unknown Verified 08/22/23 14:16 codeine Allergy Unknown Verified 08/22/23 14:16 guaifenesin Allergy Unknown Verified 08/22/23 14:16 Penicillins Allergy Unknown Verified 08/22/23 14:16 phenytoin Allergy Unknown Verified 08/22/23 14:16 potassium [From Potassimin] Allergy Unknown Verified 08/22/23 14:16 Review of Systems Review of Systems: Yes Unobtainable due to mental status Neurologic: Denies Sensory deficit (Neuro) [facility] Past Medical History Medical History Hypercalcemia Osteomyelitis Decubitus ulcer of left buttock, unstageable Decubitus ulcer of buttock, right, unstageable Deep vein thrombosis (DVT) of right upper extremity Hyperlipidemia Hypothyroidism Fever of unknown origin Dysphagia Pressure injury of left heel, stage 3 Pressure ulcer of right leg, stage 3 Pressure sore on ankle COVID Hypertension Hx of [facility] use of blood thinners Pulmonary embolism Chronic kidney disease, stage 3 Intellectual disability Schizoaffective disorder Surgical History S/P percutaneous endoscopic gastrostomy (PEG) tube placement Social History Social History Household Members: Unknown / Unable to assess Housing: [facility] Unable to assess alcohol history related to: Unknown Alcohol intake: unknown Comment: does not ambulate Patient Tobacco Use Status: Tobacco use Unknown Advance Directives: No Advance Directives Information Provided: No service: No Current occupational status: disabled Physical Exam ED Vital Signs: Vital Signs - 24 hr 08/22/23 14:57 Temperature 97.9 F Pulse Rate 98 Respiratory Rate 16 Blood Pressure 97/60 Pulse Oximetry 91 L Oxygen Delivery Method Room Air BMI result Body Mass Index 38.3 Const Other: obese special needs female screaming, can follow basic commands Nutritional Appearance: obese Limitations: behavioral limitations [facility] Head: Yes normal to inspection Ears: external ears normal General nose exam: Normal external nose present Mouth: Normal oral and palatal mucosa present and oropharynx normal Throat: Yes posterior oropharynx normal Eyes General: appearance normal, both eyes and all related structures Neck Neck: Yes normal visual inspection Chest Chest palpation & inspection: normal inspection of the chest Resp Auscultation: clear to auscultation bilaterally Cardio Jugular venous distension: no JVD Rate: regular rate Rhythm: regular rhythm Heart sounds: S1 normal heart sound present and S2 normal heart sound present GI Inspection: Yes normal to inspection Palpation (GI): Soft to palpation, nontender and No hepatosplenomegaly present Auscultation: normal bowel sounds General: Yes no CVA tenderness Back/Spine/Pelvis Back: no CVA tenderness Skin General skin exam: no rashes or lesions noted Neuro Other: baseline mental status moves all extremities Sensory Exam: No Sensory deficit (Neuro) Extrem General: Yes normal to inspection Psych Appearance: grossly normal Course Reevaluation(s) Reevaluation #1: patient likely at baseline, will check CXR and flu, covid, rsv. If negative will dc home Time: 15:59 Medical Decision Making Differential Diagnosis Differential Diagnoses: The differential diagnosis associated with the presentation includes (RSV, covid, influenza, pneumonia were all considered) Admission/Observation Consideration of admission/observation: Escalation of care including admission/observation considered (upon arrival patient considered for admission) Independent Interpretation I performed an independent interpretation of an: Plain X-Ray (no infiltrate) Independent Historian Clinical information obtained from an independent historian. History obtained from or confirmed by: Other (nursing) Prescription Management I considered prescription management with: Antibiotic (no infiltrate so abx not given) Chronic Conditions Patient?s care impacted by: Other (special needs) Discharge Plan Discharge Clinical Impression: Lung disease Patient Disposition: Still a Patient Prescriptions: No Action atorvastatin 10 mg Tablet 10 mg feeding tube DAILY trazodone 100 mg Tablet 200 mg feeding tube BID mirtazapine 7.5 mg Tablet 7.5 mg feeding tube DAILY lactulose [Enulose] 10 gram/15 mL Solution 20 g feeding tube BID quetiapine 50 mg Tablet 50 mg feeding tube TID Eliquis 2.5 mg Tablet 2.5 mg feeding tube BID ascorbic acid (vitamin C) [Vitamin C] 1,000 mg Tablet 1,000 mg feeding tube BID tramadol 50 mg Tablet 50 mg feeding tube Q12H PRN (Reason: Pain) bisacodyl 10 mg Suppository 10 mg TX DAILY PRN (Reason: Constipation) Fleet Enema 19-7 gram/118 mL Enema 118 ml TX DAILY PRN (Reason: Constipation) acetaminophen 160 mg/5 mL Elixir 960 mg feeding tube TID amino acids-protein hydrolys 15-100 gram-kcal/30 mL Liquid 30 ea feeding tube BID Rx Instructions: 30 mL BID valproic acid (as sodium salt) 250 mg/5 mL (5 mL) Solution 1,000 mg feeding tube BID levothyroxine 100 mcg Tablet 100 mcg feeding tube DAILY@0630 ferrous sulfate 220 mg (44 mg iron)/5 mL Solution 352 mg feeding tube DAILY erythromycin 5 mg/gram (0.5 %) Ointment 1 appl OPHTHALMIC (EYE) TID vancomycin [Firvanq] 25 mg/mL Recon Soln 125 mg PO Q6H 58 Days Qty: 1160 0RF Rx Instructions: Direction: Week 1: 125 mg four times per day (QID) for 5 more days Week 2: 125 mg twice per day (BID) Week 3: 125 mg daily Week 4: 125 mg every other day Weeks 5-8: 125 mg every 3 days
[2023-08-22 17:21] LABS: Influenza A PCR NEGATIVE (Negative); Influenza B PCR NEGATIVE (Negative); Resp Syncy Virus RNA Qual PCR NEGATIVE (Negative); SARS COV2 PCR INHOUSE NEGATIVE (Negative)
[2023-08-22 17:46] VITALS: BP 121/68; PULSE 91; RESP 20; TEMP 36.8; O2SAT 100
--- NOTE | 2023-08-22 19:35 | PC.NURSE ---
report given to Joe ENRIQUEZ at [facility].
--- NOTE | 2023-08-22 19:48 | PC.NURSE ---
[facility] at bedside [facility].
== END 2023-08-22 19:50 | disposition skilled nursing facility (03) ==
PROVIDERS: Emergency Provider Emergency Medicine
DX: J98.4 Other disorders of lung (principal); I12.9 Hypertensive chronic kidney disease with stage 1 through stage 4 chronic kidney disease, or unspecified chronic kidney disease; N18.30 Chronic kidney disease, stage 3 unspecified; Z11.52 Encounter for screening for COVID-19; Z20.828 Contact with and (suspected) exposure to other viral communicable diseases; A04.72 Enterocolitis due to Clostridium difficile, not specified as recurrent
CPT/HCPCS: 0241U; 71045; 99212; 99283; 99284